=== PATIENT | female | born 1935 | race Caucasian/White ===

== ENCOUNTER → 2016-06-03 | Outpatient (CLI) | payer MEDICARE ==
[~2016-06-03] MED LIST: ACHD5005 PO; AMILORIDE; AMT25T; ASP81TEC PO; ATR20T PO; BIMA2.5D4 OP; CLID1CAP12; DIVA125T3; DIVA250T4 PO; DVL250TEC; DVL500TSR; ESCT10T PO; ESTR10TA VG; HYDR-34 PO; HYDROCHLOROTHIAZIDE; KCL20TCR; LEVO75TA57 PO; LRZ.5TRX; LVT.05T PO; MULT-608 PO; NEBI5TAB8 PO; NF-ESOM40C; OMEP20CA12 PO; OXYB5TAB9 PO; PRV20T; QTP25T; RLX60T; TML5OP2.5 OU; TRIF5TAB PO
--- OUTSIDE RECORDS SUMMARY | 2016-06-03 12:55 | XMS REPORT ---
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
--- NOTE | 2016-06-09 07:52 | ECHOCARDIOGRAPHY REPORT ---
PROCEDURE PHYSICIAN: SUSSY CARDENAS DATE OF PROCEDURE: 06/03/2016 TWO DIMENSIONAL ECHOCARDIOGRAM REPORT PRIMARY PHYSICIAN: Dr. Littlejohn OTHER PHYSICIAN: REFERRING PHYSICIAN: ORDERING PHYSICIAN: Teresa Blas APRN INDICATION FOR THE PROCEDURE: 1. Shortness of breath. 2. Pulmonary hypertension. 3. Coronary artery disease. MEASUREMENTS DERIVED VALUES LV DIAMETER (LAX) NORMALS NORMALS Diastolic 4.9 (3.6-5.2) Eject. Fract. (60%+/-6%) Systolic (2.3-3.9) Diastolic Vol. % Shortening (0.22-0.42) Systolic Vol. Aortic Root 2.8 IVS THICKNESS Diastolic 0.9 (0.6-1.1) LVPW THICKNESS Diastolic 0.9 (0.6-1.1) LA DIAMETER Systolic 3.2 (2.1-3.7) DESCRIPTION: Two-dimensional echocardiography shows normal global left ventricular systolic function with normal regional wall motion. Aortic, mitral and tricuspid valve leaflets show good leaflet excursion. There is no significant pericardial effusion. Doppler imaging shows mild tricuspid regurgitation. Pulmonary artery systolic pressure is estimated to be 30 to 35 mmHg. There is no Doppler evidence of significant valvular stenosis. Mitral inflow is consistent with grade 1 diastolic dysfunction of the left ventricle. There is no evidence of significant intracardiac shunt on the transthoracic echocardiographic study. Inferior vena cava is of normal size and exhibits inspiratory collapse. CONCLUSION: 1. Normal global left ventricular systolic function with an ejection fraction of approximately 60%. 2. Mild tricuspid regurgitation. 3. Pulmonary artery systolic pressure is estimated to be approximately 30 to 35 mmHg. 4. No evidence of significant valvular stenosis. 5. Mild diastolic dysfunction of the left ventricle. Job ID: [id number] Dictated Date: 06/08/2016 15:28:12 Machine Room Engineer Date: 06/09/2016 07:46:23 / yoanna
== END ==
LOC: CARD 12:52
PROVIDERS: ATTEND Nurse Practitioner Family
DX: I27.2 Other secondary pulmonary hypertension (principal); E78.5 Hyperlipidemia, unspecified; I25.10 Atherosclerotic heart disease of native coronary artery without angina pectoris; R06.09 Other forms of dyspnea
CPT/HCPCS: 93306

== ENCOUNTER 2016-10-05 06:52 | Emergency (ER) | payer MEDICARE ==
[~2016-10-05] VITALS: Ht 154.9 cm; Wt 90.7 kg
[2016-10-05 06:54] VITALS: BP 134/57
[2016-10-05 07:44] LABS: BASOPHILS # (AUTO) 0.1 10^3/uL (0.0-0.1); BASOPHILS % (AUTO) 1 % (0-10); EOSINOPHILS # (AUTO) 0.4 10^3/uL (0.0-0.3); EOSINOPHILS % (AUTO) 3 % (0-10); LYMPHOCYTES # (AUTO) 2.2 X 10^3 (1.0-4.0); LYMPHOCYTES % (AUTO) 17 % (12-44); MEAN CORPUSCULAR HEMOGLOBIN 27 PG (25-34); MEAN CORPUSCULAR HGB CONC 32 G/DL (32-36); MEAN CORPUSCULAR VOLUME 85 FL (80-99); MEAN PLATELET VOLUME 9.8 FL (7.4-10.4); MONOCYTES # (AUTO) 1.1 X 10^3 (0.0-1.0); MONOCYTES % (AUTO) 9 % (0-12); NEUTROPHILS # (AUTO) 9.2 X 10^3 (1.8-7.8); NEUTROPHILS % (AUTO) 71 % (42-75); PLATELET COUNT 346 10^3/uL (130-400); RED BLOOD COUNT 4.79 10^6/uL (4.35-5.85); RED CELL DISTRIBUTION WIDTH 15.6 % (10.0-14.5)
[2016-10-05 08:01] LABS: ALANINE AMINOTRANSFERASE 17 U/L (0-55); ALBUMIN 3.3 G/DL (3.2-4.5); ANION GAP 10 MMOL/L (5-14); ASPARTATE AMINO TRANSFERASE 18 U/L (5-34); BILIRUBIN,TOTAL 0.6 MG/DL (0.1-1.0); BLOOD UREA NITROGEN 12 MG/DL (7-18); BUN/CREATININE RATIO 17; CARBON DIOXIDE 25 MMOL/L (21-32); CHLORIDE 105 MMOL/L (98-107); CREATININE SERUM 0.72 MG/DL (0.60-1.30); GFR ESTIMATED > 60; GLUCOSE 102 MG/DL (70-105); MAGNESIUM 2.1 MG/DL (1.8-2.4); POTASSIUM 3.9 MMOL/L (3.6-5.0); SODIUM 140 MMOL/L (135-145); TOTAL PROTEIN 6.4 G/DL (6.4-8.2); hs C REACTIVE PROTEIN 1.12 MG/DL (0.00-0.50)
[2016-10-05 08:03] LABS: BILIRUBIN,URINE NEGATIVE (NEGATIVE); KETONES,URINE NEGATIVE (NEGATIVE); LEUKOCYTE ESTERASE ,URINE NEGATIVE (NEGATIVE); NITRITE,URINE NEGATIVE (NEGATIVE); PH,URINE 8 (5-9); PROTEIN,URINE NEGATIVE (NEGATIVE); UROBILINOGEN,URINE NORMAL (NORMAL)
--- NOTE | 2016-10-05 08:03 | ED Respiratory ---
General Chief Complaint: Respiratory Problems Stated Complaint: ILLNESS Nursing Triage Note: pt arrived per ems. pt states she woke up to use the bedside commode approx. 0400 this morning and was feeling very short of breath. Source: patient Exam Limitations: no limitations History of Present Illness Time seen by provider: 07:05 Initial Comments Here with report of shortness of breath this morning. Patient apparently got up to use the bathroom and when she got back to bed she was very short of breath. She has recent right lower extremity injury which is apparently a calcaneus fracture. She has had surgery on this. She was very short of breath until the application of oxygen and then she calmed and was not short of breath per EMS. EMS reports that her initial O2 sat was 96 percent on room air and then improved to 100 percent on 3 L. Patient was feeling much better at that time. Currently remains without shortness of breath. Patient apparently has anxiety history as well and she is not sure if that played a part of it. Denies chest pain. Timing/Duration: this morning Severity: moderate Prior Episodes/Possible Cause: occasional episodes Modifying Factors: Worse With Coughing, Improves With Oxygen, Improves With Rest Associated Symptoms: No chest pain/soreness, No dizziness, headache, lightheadedness, No muscle aches, No nasal congestion, No nasal drainage, shortness of breath, No wheezing Allergies and Home Medications Allergies Coded Allergies: Sulfa (Sulfonamide Antibiotics) (Verified Allergy, Unknown, 10/11/06) bacitracin (Unverified Allergy, Unknown, 06/25/14) diphenhydramine (Unverified Allergy, Unknown, 06/25/14) gramicidin D (Unverified Allergy, Unknown, 06/25/14) neomycin (Unverified Allergy, Unknown, 06/25/14) polymyxin B (Unverified Allergy, Unknown, 06/25/14) quinine (Unverified Allergy, Unknown, 06/25/14) Uncoded Allergies: IV CONTRAST (Allergy, Unknown, 06/25/14) Home Medications Aspirin 81 Mg Tabec, 81 MG PO DAILY, (Reported) Atorvastatin 20 Mg Tablet, 20 MG PO HS, (Reported) Bimatoprost 2.5 Ml Drops, 2.5 ML OP, (Reported) Divalproex Sodium 125 Mg Tablet., #90 (Reported) 125 mg in the morning and 250 mg at night Escitalopram Oxalate 10 Mg Tablet, 10 MG PO DAILY, (Reported) takes at 1700 Levothyroxine Sodium 75 Mcg Tablet, 75 MCG PO DAILY, #30 (Reported) Lorazepam 0.5 Mg Tab, (Reported) 0.5MG PRN Multivitamins 1 Tab Tablet, 1 TAB PO DAILY, (Reported) Omeprazole 20 Mg Capsule.dr, 20 MG PO DAILY, (Reported) Constitutional: see HPI, No chills, No fever EENTM: No nose congestion, No nose pain Respiratory: see HPI, short of breath, No wheezing Cardiovascular: No chest pain, No edema Gastrointestinal: No abdominal pain, No nausea, No vomiting Genitourinary: No pain, other (recent urinary tract infection and complains of difficulty with urination) Musculoskeletal: no symptoms reported Skin: no symptoms reported Psychiatric/Neurological: Anxiety Hematologic/Lymphatic: No Symptoms Reported All Other Systems Reviewed Negative Unless Noted: Yes Past Tcnzqna-Qgykti-Vkpmzx Hx Patient Social History Alcohol Use: Denies Use Recreational Drug Use: No Smoking Status: Never a Smoker 2nd Hand Smoke Exposure: No Recent Foreign Travel: No Contact w/Someone Who Travel: No Recent Infectious Disease Expo: No Recent Hopitalizations: Yes (SURGERIES R/T) Seasonal Allergies Seasonal Allergies: No Surgeries HX Surgeries: Yes (LEFT TKR,APPY,2 C-SECTIONS) Respiratory Hx Respiratory Disorders: No Cardiovascular Hx Cardiac Disorders: Yes Neurological Hx Neurological Disorders: Yes Reproductive System Hx Reproductive Disorders: No Sexually Transmitted Disease: No 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 Genitourinary Hx Genitourinary Disorders: Yes (UTI) Gastrointestinal Hx Gastrointestinal Disorders: Yes (IBS) Musculoskeletal Hx Musculoskeletal Disorders: Yes Endocrine Hx Endocrine Disorders: Yes HEENT HX ENT Disorders: Yes (UPPER PLATE) Psychosocial Hx Psychiatric Problems: Yes (HX DEPRESSION, BI POLAR) Blood Transfusions Hx Blood Disorders: Yes Reviewed Nursing Assessment Reviewed/Agree w Nursing PMH: Yes Family Medical History Significant Family History: No Pertinent Family Hx Physical Exam Vital Signs Vital Sign - Last 12Hours 10/05/16 06:54 Temp 98.2 Pulse 91 Resp 20 B/P (MAP) 134/57 Pulse Ox 98 O2 Delivery Nasal Cannula O2 Flow Rate 3.00 Capillary Refill : Less Than 3 Seconds General Appearance: WD/WN, no apparent distress HEENT: PERRL/EOMI, pharynx normal Neck: full range of motion, supple Respiratory: lungs clear, normal breath sounds Cardiovascular: regular rate, rhythm, no murmur Gastrointestinal: non tender, soft Extremities: non-tender, other (bulky dressing and splint to the left lower extremity remains in place.) Neurologic/Psychiatric: alert, oriented x 3 Skin: normal color, warm/dry Progress/Results/Core Measures Results/Orders Lab Results Laboratory Tests Test 10/05/16 07:35 Range/Units White Blood Count 13.0 H 4.3-11.0 10^3/uL Red Blood Count 4.79 4.35-5.85 10^6/uL Hemoglobin 13.1 11.5-16.0 G/DL Hematocrit 41 35-52 % Mean Corpuscular Volume 85 80-99 FL Mean Corpuscular Hemoglobin 27 25-34 PG Mean Corpuscular Hemoglobin Concent 32 32-36 G/DL Red Cell Distribution Width 15.6 H 10.0-14.5 % Platelet Count 346 130-400 10^3/uL Mean Platelet Volume 9.8 7.4-10.4 FL Neutrophils (%) (Auto) 71 42-75 % Lymphocytes (%) (Auto) 17 12-44 % Monocytes (%) (Auto) 9 0-12 % Eosinophils (%) (Auto) 3 0-10 % Basophils (%) (Auto) 1 0-10 % Neutrophils # (Auto) 9.2 H 1.8-7.8 X 10^3 Lymphocytes # (Auto) 2.2 1.0-4.0 X 10^3 Monocytes # (Auto) 1.1 H 0.0-1.0 X 10^3 Eosinophils # (Auto) 0.4 H 0.0-0.3 10^3/uL Basophils # (Auto) 0.1 0.0-0.1 10^3/uL Urine Color YELLOW Urine Clarity CLEAR Urine pH 8 5-9 Urine Specific [place] 1.015 L 1.016-1.022 Urine Protein NEGATIVE NEGATIVE Urine Glucose (UA) NEGATIVE NEGATIVE Urine Ketones NEGATIVE NEGATIVE Urine Nitrite NEGATIVE NEGATIVE Urine Bilirubin NEGATIVE NEGATIVE Urine Urobilinogen NORMAL NORMAL MG/DL Urine Leukocyte Esterase NEGATIVE NEGATIVE Urine RBC (Auto) NEGATIVE NEGATIVE Urine RBC NONE /HPF Urine WBC NONE /HPF Urine Squamous Epithelial Cells RARE /HPF Urine Crystals NONE /LPF Urine Bacteria NEGATIVE /HPF Urine Casts NONE /LPF Urine Mucus NEGATIVE /LPF Urine Culture Indicated NO Sodium Level 140 135-145 MMOL/L Potassium Level 3.9 3.6-5.0 MMOL/L Chloride Level 105 98-107 MMOL/L Carbon Dioxide Level 25 21-32 MMOL/L Anion Gap 10 5-14 MMOL/L Blood Urea Nitrogen 12 7-18 MG/DL Creatinine 0.72 0.60-1.30 MG/DL Estimat Glomerular Filtration Rate > 60 BUN/Creatinine Ratio 17 Glucose Level 102 70-105 MG/DL Calcium Level 9.0 8.5-10.1 MG/DL Magnesium Level 2.1 1.8-2.4 MG/DL Total Bilirubin 0.6 0.1-1.0 MG/DL Aspartate Amino Transf (AST/SGOT) 18 5-34 U/L Alanine Aminotransferase (ALT/SGPT) 17 0-55 U/L Alkaline Phosphatase 84 40-136 U/L Troponin I < 0.30 <0.30 NG/ML C-Reactive Protein High Sensitivity 1.12 H 0.00-0.50 MG/DL Total Protein 6.4 6.4-8.2 G/DL Albumin 3.3 3.2-4.5 G/DL My Orders Orders - SAL DE OLIVEIRA MD Cbc With Automated Diff (10/05/16 07:02) Comprehensive Metabolic Panel (10/05/16 07:02) Hs C Reactive Protein (10/05/16 07:02) Magnesium (10/05/16 07:02) Troponin I (10/05/16 07:02) Saline Lock/Iv-Start (10/05/16 07:02) Ekg Tracing (10/05/16 07:02) O2 (10/05/16 07:02) Monitor-Rhythm Ecg Trace Only (10/05/16 07:02) Chest 1 View, Ap/Pa Only (10/05/16 07:02) Ua Culture If Indicated (10/05/16 07:53) Vital Signs/I&O Vital Sign - Last 12Hours 10/05/16 10/05/16 06:54 07:05 Temp 98.2 Pulse 91 Resp 20 B/P (MAP) 134/57 Pulse Ox 98 O2 Delivery Nasal Cannula Room Air O2 Flow Rate 3.00 Blood Pressure Mean: 82 Progress Note : Progress Note Seen and evaluated. IV, labs, EKG, chest x-ray and UA ordered. Patient was a very difficult IV stick. Nursing tried multiple times. Ultimately I was able to get an IV in the region of the left EJ via ultrasound guidance. Monitor patient. Patient is satting 100 percent on room air without difficulty. 1040: Patient remains without symptoms. Labs, x-ray and EKG reviewed. No acute findings. Discharged home with return precautions. Patient verbalize understanding instructions and agreement with plan. ECG Initial ECG Impression Date: October 05, 2016 Initial ECG Impression Time: 07:55 Initial ECG Rate: 88 Initial ECG Rhythm: Normal Sinus Comment Sinus rhythm with left axis deviation. No evidence of ST elevation [place]. Similar to previous of 07/03/13. [place] deviation progression from previous. Interpreted by me. Diagnostic Imaging Diagonstic Imaging: Xray Plain Films/CT/US/NM/MRI: chest Comments NAME: LINDA RIVERA [facility] REC#: [id number] PT STATUS: REG ER : 1935 PHYSICIAN: SAL DE OLIVEIRA MD ADMIT DATE: 10/05/16/ER Signed Date of Exam: 10/05/16 CHEST 1 VIEW, AP/PA ONLY Portable upright radiograph of the chest. INDICATION: Shortness of breath. FINDINGS: The lungs are clear. The heart size is normal. There is suggestion of a hiatal hernia. No effusion or pneumothorax. Mediastinum and samanta appear unremarkable. IMPRESSION: Suggestion of a hiatal hernia. Dictated by: Dictated on workstation # [id number] Dict: 10/05/16 0816 Trans: 10/05/16 0852 Interpreted by: ALEJANDRO MCINTOSH MD Electronically signed by: ALEJANDRO MCINTOSH MD 10/05/16 0852 Departure Impression Impression: Primary Impression: Dyspnea Qualified Codes: R06.02 - Shortness of breath Additional Impression: Anxiety Disposition: 01 HOME, SELF-CARE Condition: Improved Departure-Patient Inst. Decision time for Depature: 10:42 Referrals: MENA BOWDEN MD (PCP/Family) Primary Care Physician Patient Instructions: Anxiety, Adult (DC), Shortness of Breath (Dyspnea) Add. Discharge Instructions: All discharge instructions reviewed with patient and/or family. Voiced understanding. Continue home medications as directed. Discuss with your doctor regarding potential for rehabilitation at inpatient facility regarding your foot fracture. Continue home medications as prescribed. Return for worse pain, fever, vomiting, weakness, breathing problems or other concerns as needed. SAL DE OLIVEIRA MD October 05, 2016 08:03
[2016-10-05 08:07] LABS: TROPONIN I < 0.30 NG/ML (<0.30)
[2016-10-05 08:12] LABS: SQUAMOUS EPITHELIAL CELL,UR RARE /HPF
--- NOTE | 2016-10-05 08:18 | Diagnostic Imaging Report ---
Portable upright radiograph of the chest. INDICATION: Shortness of breath. FINDINGS: The lungs are clear. The heart size is normal. There is suggestion of a hiatal hernia. No effusion or pneumothorax. Mediastinum and samanta appear unremarkable. IMPRESSION: Suggestion of a hiatal hernia. Dictated by: Dictated on workstation # [id number]
== END 2016-10-05 10:48 | disposition home or self-care (01) ==
LOC: EDUNIT# 06:52 → ER 06:53
DX: R06.00 Dyspnea, unspecified (principal); F41.9 Anxiety disorder, unspecified; Z79.82 Long term (current) use of aspirin; Z79.899 Other long term (current) drug therapy; Z98.890 Other specified postprocedural states
CPT/HCPCS: 36415; 71010; 80053; 81000; 83735; 84484; 85025; 86141; 93005; 93041

== ENCOUNTER 2016-12-16 13:00 | Outpatient (RCR) | payer MEDICARE | END 2016-12-29 11:30 | disposition home or self-care (01) | PROVIDERS: ATTEND Orthopaedic Surgery Sports Medicine | DX: S92.002D Unspecified fracture of left calcaneus, subsequent encounter for fracture with routine healing (principal) ==

== ENCOUNTER → 2017-01-04 | Outpatient (CLI) | payer MEDICARE ==
[~2017-01-04] VITALS: Ht 152.4 cm; Wt 88.9 kg
[~2017-01-04] MED LIST changes: +CATHETER FLUSH 10 ML SYR IV PRN; +REGADENOSON 0.4 MG/5 ML SYR (LEXISCAN) IV ONE
[2017-01-04 12:59] VITALS: BP 142/83
[2017-01-04 13:06] VITALS: BP 152/85
[2017-01-04 13:07] VITALS: BP 150/91
--- NOTE | 2017-01-06 05:00 | STRESS TEST ---
DATE OF SERVICE: 01/04/2017 RESTING AND POST REGADENOSON TECHNETIUM 99M TETROFOSMIN SPECT CT IMAGING CLINICAL DIAGNOSIS: R06.09. ORDERING PHYSICIAN: ANA Lopez. OTHER PHYSICIAN: Dr. Adorno. Baseline images were carried out after injection of 10.89 mCi of Technetium-99m Tetrofosmin. This was followed by 0.4 mg regadenoson and 29.6 mCi Technetium-99m Tetrofosmin for stress imaging. The electrocardiogram showed sinus rhythm at baseline and did not change significantly with the regadenoson infusion. She had noted mild shortness of breath following regadenoson infusion, which resolved in a few minutes. Review of images at rest and following stress does not indicate any significant perfusion defects consistent with significant myocardial ischemia or infarction. Gated images show normal global left ventricular systolic function with normal regional wall motion. Left ventricular ejection fraction is calculated to be 69%. Left ventricular end diastolic volume is 45 mL. TID is absent (0.99). CONCLUSIONS: 1. No evidence of any significant myocardial ischemia or infarction on this study. 2. Normal regional wall motion. 3. Normal global left ventricular systolic function with a calculated ejection fraction of 69%. 4. Normal left ventricular cavity size. Job ID: [id number] DocumentID: [id number] Dictated Date: 01/05/2017 13:27:26 Supervisor Fur Floor Worker Date: 01/05/2017 17:30:09 Dictated By: SUSSY ADORNO MD, MA, FACP, FACC,
== END ==
LOC: CARD 11:05
PROVIDERS: ATTEND Nurse Practitioner Family
DX: I25.10 Atherosclerotic heart disease of native coronary artery without angina pectoris (principal); R06.09 Other forms of dyspnea; R42 Dizziness and giddiness; R00.1 Bradycardia, unspecified; G47.33 Obstructive sleep apnea (adult) (pediatric)
CPT/HCPCS: 78452; 93017

== ENCOUNTER → 2017-02-14 | Outpatient (CLI) | payer MEDICARE ==
[~2017-02-14] MED LIST changes: -CATHETER FLUSH 10 ML SYR IV PRN; -REGADENOSON 0.4 MG/5 ML SYR (LEXISCAN) IV ONE
== END ==
LOC: RAD 13:33
PROVIDERS: ATTEND Nurse Practitioner Family
DX: R51 Headache (principal); R42 Dizziness and giddiness

== ENCOUNTER → 2017-03-07 | Outpatient (CLI) | payer MEDICARE ==
--- NOTE | 2017-03-07 13:19 | Diagnostic Imaging Report ---
PROCEDURE: CT head without contrast. TECHNIQUE: Multiple contiguous axial images were obtained through the brain without the use of intravenous contrast. INDICATION: Headache. FINDINGS: There is no intracranial hemorrhage, edema or mass effect. The brain parenchyma demonstrates periventricular and deep white matter hypodensities compatible with chronic microvascular ischemic changes. No hydrocephalus. No extra-axial fluid collection is seen. The calvarium and visualized portions of the paranasal sinuses appear unremarkable. The visualized portions of the orbits appear unremarkable. IMPRESSION: White matter findings are suggestive of chronic microvascular ischemic changes. Dictated by: Dictated on workstation # [id number]
== END ==
LOC: RAD 12:53
PROVIDERS: ATTEND Nurse Practitioner Family
DX: R51 Headache (principal)
CPT/HCPCS: 70450

== ENCOUNTER → 2017-10-11 | Outpatient (CLI) | payer MEDICARE ==
[~2017-10-11] MED LIST changes: +ASPI-983 PO; +ATOR40TA70 PO; +BIMA2.5D4 OU; +BRIM5DRO12 OS; +CHOL5000 PO; +DIVA250T2 PO; +ERGO50006 PO; +FURO40TA4 PO; +HYDR-700 PO; +LEVO100T7 PO; +LORA0.5T PO; +MELA3TAB PO; +OLAN10TA3 PO; +OLAN5TAB25 PO; +POTA10TA10 PO; +VENL75TA2 PO
--- NOTE | 2017-10-11 19:11 | Diagnostic Imaging Report ---
INDICATION: Routine screening. Comparison is made with prior studies from 04/18/2015 and 02/19/2014. 2D and 3D bilateral screening mammography was performed. The current study was also evaluated with a Computer Aided Detection (CAD) system. FINDINGS: Scattered fibronodular densities are identified bilaterally. There is significant motion artifact identified on the right CC view, which should be repeated. There is a benign-appearing nodular density in the slightly outer right breast mid depth, similar to prior exam. Scattered benign-appearing calcifications are identified. No spiculated mass or malignant-appearing microcalcifications are seen. IMPRESSION: Motion artifact right CC view. Repeat right CC view is recommended for further evaluation. Otherwise bilateral mammograms are unremarkable. ACR BI-RADS Category 0: Incomplete. (Needs additional imaging evaluation). Result letter will be mailed to the patient. Note: At least 10% of breast cancer is not imaged by mammography. Dictated by: Dictated on workstation # [id number]
== END ==
LOC: RAD 09:57
PROVIDERS: ATTEND Nurse Practitioner Family
DX: Z12.31 Encounter for screening mammogram for malignant neoplasm of breast (principal)
CPT/HCPCS: 77067

== ENCOUNTER → 2017-10-12 | Outpatient (CLI) | payer MEDICARE ==
--- NOTE | 2017-10-12 18:35 | Diagnostic Imaging Report ---
INDICATION: Routine screening. COMPARISON: Prior study from 04/18/2015 and 02/19/2014. EXAMINATION: 2D and 3D bilateral screening mammography was performed with CAD. FINDINGS: Scattered fibroglandular densities are identified, bilaterally. A repeat CC view was performed for motion. The repeat view is improved. There are benign calcifications present. There also appears to be a new cluster in the upper and outer aspect of the right breast, now more clear with the repeat view. Additional views of this area are recommended. No associated soft tissue mass is seen. Axillae are unremarkable. IMPRESSION: Emerging cluster microcalcifications in the upper-outer right breast. Additional views are recommended. ACR BI-RADS Category 0: Incomplete. (Needs additional imaging evaluation). Result letter will be mailed to the patient. Note: At least 10% of breast cancer is not imaged by mammography. Dictated by: Dictated on workstation # [id number]
== END ==
LOC: RAD 13:34
PROVIDERS: ATTEND Nurse Practitioner Family
DX: Z12.31 Encounter for screening mammogram for malignant neoplasm of breast (principal); R92.0 Mammographic microcalcification found on diagnostic imaging of breast

== ENCOUNTER 2017-10-18 06:48 | Day surgery (SDC) | payer MEDICARE ==
[~2017-10-18] VITALS: Ht 152.4 cm; Wt 100.2 kg
[2017-10-18] VITALS (9 sets, daily range): BP systolic 92–155; BP diastolic 45–77
[~2017-10-18 06:48] MED LIST changes: -ASPI-983 PO; -ATOR40TA70 PO; -BIMA2.5D4 OU; -BRIM5DRO12 OS; -CHOL5000 PO; -DIVA250T2 PO; -ERGO50006 PO; -FURO40TA4 PO; -HYDR-700 PO; -LEVO100T7 PO; -LORA0.5T PO; -MELA3TAB PO; -OLAN10TA3 PO; -OLAN5TAB25 PO; -POTA10TA10 PO; -VENL75TA2 PO
--- OUTSIDE RECORDS SUMMARY | 2017-10-18 06:53 | XMS REPORT ---
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 Active 64599772 Problem Delusional disorder F22 Active 98512768 Problem Adjustment disorder with anxious mood F43.22 Active 27640570 ALLERGIES No Information ENCOUNTERS Encounter Location Date Diagnosis [place] [id number] [place] [address]641- 1119 Oct, [place] [address] [place] [address] [id number] [place] [address] 41452- 3899 Aug, [place] [id number] [place] [address] 99863- 7580 Aug, Major depressive disorder, recurrent episode, 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 ; Delusional disorder F22 and RAD (generalized anxiety disorder) F41.1 [facility] [id number] [place] [address] 70232- 0969 Jul, Major depressive disorder, recurrent episode, 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 [place] [id number] [place] [address] 83027- 0160 Jul, Major depressive disorder, recurrent episode, unspecified F33.9 [place] [id number] [place] [address] 36181- 8833 Jun, Major depressive disorder, recurrent episode, 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 [facility] [id number] [address] May, Major depressive disorder, recurrent episode, 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 ; Delusional disorder F22 and RAD (generalized anxiety disorder) F41.1 [facility] [address] [address] May, [facility] [id number] [address] May, Major depressive disorder, recurrent episode, 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 [facility] [id number] [address] 395[address] May, Major depressive disorder, recurrent episode, 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 ; Adjustment disorder with anxious mood F43.22 and Delusional disorder F22 [facility] [id number] [address] Mar, [facility] [id number] [address] Mar, Major depressive disorder, recurrent episode, 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 [facility] [id number] [address] Mar, Major depressive disorder, recurrent episode, 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 ; Adjustment disorder with anxious mood F43.22 and Delusional disorder F22 [facility] [id number] [address] 89[address] Mar, Major depressive disorder, recurrent episode, 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 [facility] [id number] [address] 8[address] Feb, Major depressive disorder, recurrent episode, 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 [facility] [address] [facility] [id number] [place] [address] Feb, Major depressive disorder, recurrent episode, 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 ; Adjustment disorder with anxious mood F43.22 and Delusional disorder F22 [facility] [id number] [address] 69[address] Jan, Major depressive disorder, recurrent episode, 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 [facility] [id number] [address] 0168 Jan, Major depressive disorder, recurrent episode, 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 [facility] [id number] [address] 4[address] Jan, Major depressive disorder, recurrent episode, 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 [facility] [id number] [address] 43[address] Dec, Major depressive disorder, recurrent episode, 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 [facility] [id number] [address]79 Dec, Major depressive disorder, recurrent episode, 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 ; Adjustment disorder with anxious mood F43.22 and Delusional disorder F22 [facility] [address] [facility] [id number] [address] Dec, Major depressive disorder, recurrent episode, 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 [facility] [address] [facility] [id number] [place] [address] Dec, [facility] Jose Miguel ARRIETA [id number] [place] [address] Dec [facility] [address] [facility] [id number] [place] [address] 6485 Dec, Major depressive disorder, recurrent episode, 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 [facility] [id number] [address] 4[address] Nov, Major depressive disorder, recurrent episode, 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 [facility] [address] [address] 7[address] Nov, Major depressive disorder, recurrent episode, 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 [facility] [address] [address] 24[address] Nov, Major depressive disorder, recurrent episode, 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 and Adjustment disorder with anxious mood F43.22 [facility] [address] [address] September, Major depressive disorder, recurrent episode, 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 [facility] [address] [address] 3[address] Aug, Major depressive disorder, recurrent episode, 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 [facility] [address] [address] 33[address] Jul, Major depressive disorder, recurrent episode, 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 [facility] [address] [address] 5[address] Jul, [facility] [address] [address] 8660 Jun, Major depressive disorder, recurrent episode, 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 and Other manager 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 Z79.899 [facility] [address] [address] Jun, [facility] [address] [address] May, Major depressive disorder, recurrent episode, 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 [facility] [address] [id number] [place] [address] Mar, [facility] [address] [facility] [id number] [address] 67[address] Mar, [facility] [address] [facility] [id number] [address] Mar, [facility] [address] [facility] [id number] [place] [address] 2758 Mar, Major depressive disorder, recurrent episode, 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 [facility] [address] [id number] [place] [address]- 2566 Feb, [facility] [address] [facility] [id number] [address] 5[address] Feb, [facility] [address] [facility] [id number] [place] [address] 2[address] Feb, [facility] [address] [facility] [id number] [place] [address] 0498 Jan, [facility] [address] [facility] [id number] [place] [address]- 6[address] Jan, Major depressive disorder, recurrent episode, 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 [facility] [address] [facility] [id number] [place] [address]- 2426 Jan, [facility] [address] [id number] [place] [address]- 0623 Oct, Major depressive disorder, recurrent episode, 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 [facility] [address] [facility] [id number] [place] [address] September, [facility] [address] [facility] [id number] [place] [address]- 4056 September, [facility] [address] [facility] [id number] [place] [address]- 2727 Aug, Major depressive disorder, recurrent episode, 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 [facility] [address] [facility] [id number] [place] [address]- 6400 Jul, Recur major depre, part remis F33.41 IMMUNIZATIONS No Known Immunizations SOCIAL HISTORY Never Assessed REASON FOR VISIT concerned about patient PLAN OF CARE VITAL SIGNS MEDICATIONS Unknown Medications RESULTS No Results PROCEDURES No Known procedures INSTRUCTIONS MEDICATIONS ADMINISTERED No Known Medications MEDICAL (GENERAL) HISTORY Type Description Date Surgical History appendectomy 1950 Surgical History 1960 Surgical History 1966 Surgical History Left knee replacement 1998 Surgical History blood transfusion 1998 Surgical History removal right side of thyroid gland 2007 Surgical History Right knee replacement 2009 Hospitalization History surgeries Hospitalization History psychiatric hospitalizations x4-5 Hospitalization History hospitalized for two nights due to a fall 09/2016 Hospitalization History [facility] 03/21/17-
--- OUTSIDE RECORDS SUMMARY | 2017-10-18 06:53 | XMS REPORT ---
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 19507502 Problem Delusional disorder F22 Active 33148098 Problem Adjustment disorder with anxious mood F43.22 Active 25077744 ALLERGIES No Information ENCOUNTERS Encounter Location Date Diagnosis [place] [id number] [place] [address] 12064- 1605 Oct, [place] [address] [place] [id number] [place] [address] 61072- 7922 Aug, [place] [address] [place] [id number] [place] [address] 03322- 6555 Aug, Major depressive disorder, recurrent episode, 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 ; Delusional disorder F22 and RAD (generalized anxiety disorder) F41.1 [facility] [id number] [place] [address] 92761- 9497 Jul, Major depressive disorder, recurrent episode, 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 [place] [id number] [place] [address] 05617- 3239 Jul, Major depressive disorder, recurrent episode, unspecified F33.9 [place] [id number] [place] [address] 52331- 9620 Jun, Major depressive disorder, recurrent episode, 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 [facility] [id number] [address]- 7590 May, Major depressive disorder, recurrent episode, 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 ; Delusional disorder F22 and RAD (generalized anxiety disorder) F41.1 [facility] [address] [address]- 7[address] May, [facility] [address] [id number] [address]- 8055 May, Major depressive disorder, recurrent episode, 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 [facility] [address] [id number] [address]- 2814 May, Major depressive disorder, recurrent episode, 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 ; Adjustment disorder with anxious mood F43.22 and Delusional disorder F22 [facility] [id number] [address]- 0453 Mar, [facility] [address] [id number] [address]- 7933 Mar, Major depressive disorder, recurrent episode, 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 [facility] [address] [id number] [address]- 8444 Mar, Major depressive disorder, recurrent episode, 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 ; Adjustment disorder with anxious mood F43.22 and Delusional disorder F22 [facility] [id number] [address]- 0647 Mar, Major depressive disorder, recurrent episode, 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 [facility] [id number] [address]- 2816 Feb, Major depressive disorder, recurrent episode, 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 [facility] [address] [facility] [id number] [place] [address]- 4[address] Feb, Major depressive disorder, recurrent episode, 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 ; Adjustment disorder with anxious mood F43.22 and Delusional disorder F22 [facility] [id number] [address]- 9701 Jan, Major depressive disorder, recurrent episode, 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 [facility] [id number] [address]- 1182 Jan, Major depressive disorder, recurrent episode, 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 [facility] [id number] [address]- 1905 Jan, Major depressive disorder, recurrent episode, 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 [facility] [id number] [address]- 0988 Dec, Major depressive disorder, recurrent episode, 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 [facility] [id number] [address]- 6636 Dec, Major depressive disorder, recurrent episode, 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 ; Adjustment disorder with anxious mood F43.22 and Delusional disorder F22 [facility] [address] [facility] [id number] [address]- 6922 Dec, Major depressive disorder, recurrent episode, 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 [facility] [address] [facility] [id number] [place] [address]- 1267 Dec, [facility] Jose Miguel ARRIETA [id number] [place] [address] Dec [facility] [address] [facility] [id number] [place] [address]- 2744 Dec, Major depressive disorder, recurrent episode, 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 [facility] [id number] [address]- 4653 Nov, Major depressive disorder, recurrent episode, 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 [facility] [address] [address]- 4083 Nov, Major depressive disorder, recurrent episode, 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 [facility] [address] [address]- 4505 Nov, Major depressive disorder, recurrent episode, 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 and Adjustment disorder with anxious mood F43.22 [facility] [address] [address]- 1682 September, Major depressive disorder, recurrent episode, 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 [facility] [address] [address]- 8452 Aug, Major depressive disorder, recurrent episode, 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 [facility] [address] [address]- 0733 Jul, Major depressive disorder, recurrent episode, 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 [facility] [address] [address]- 2098 Jul, [facility] [address] [address]- 0046 Jun, Major depressive disorder, recurrent episode, 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 and 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 Z79.899 [facility] [address] [address]- 1454 Jun, [facility] [address] [address]- 9104 May, Major depressive disorder, recurrent episode, 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 [facility] [address] [id number] [place] [address]- 8306 Mar, [facility] [address] [facility] [id number] [place] [address]- 7826 Mar, [facility] [address] [facility] [id number] [place] [address]- 8446 Mar, [facility] [address] [facility] [id number] [place] [address]- 2395 Mar, Major depressive disorder, recurrent episode, 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 [facility] [address] [id number] [place] [address]- 7136 Feb, [facility] [address] [facility] [id number] [address]- 3496 Feb, [facility] [address] [facility] [id number] [place] [address]- 8644 Feb, [facility] [address] [facility] [id number] [place] [address]- 5818 Jan, [facility] [address] [facility] [id number] [place] [address]- 5239 Jan, Major depressive disorder, recurrent episode, 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 [facility] [address] [facility] [id number] [place] [address]- 8336 Jan, [facility] [address] [id number] [place] [address]- 2825 Oct, Major depressive disorder, recurrent episode, 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 [facility] [address] [facility] [id number] [place] [address] September, [facility] [address] [facility] [id number] [address]- 4866 September, [facility] [address] [facility] [id number] [place] Aug, Major depressive disorder, recurrent episode, 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
--- OUTSIDE RECORDS SUMMARY | 2017-10-18 06:53 | XMS REPORT ---
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 33008600 ALLERGIES No Information SOCIAL HISTORY Never Assessed PLAN OF CARE VITAL SIGNS MEDICATIONS Unknown Medications RESULTS No Results PROCEDURES No Known procedures IMMUNIZATIONS No Known Immunizations MEDICAL (GENERAL) HISTORY Type Description Date Surgical History appendectomy 1950 Surgical History 1960 Surgical History 1966 Surgical History Left knee replacement 1998 Surgical History blood transfusion 1998 Surgical History removal right side of thyroid gland 2007 Surgical History Right knee replacement 2010 Hospitalization History surgeries Hospitalization History psychiatric hospitalizations x4-5
--- OUTSIDE RECORDS SUMMARY | 2017-10-18 06:53 | XMS REPORT ---
Author Author Pacheco ANDERSON Organization [facility] Address [address] 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 99592263 ALLERGIES Substance Reaction Event Type Date Status SulfADIAZINE Unknown Drug Allergy Jun, Active Quinine Sulfate Unknown Drug Allergy Jun, Active Neosporin Unknown Drug Allergy Jun, Active Benadryl Unknown Drug Allergy Jun, Active SOCIAL HISTORY Never Assessed PLAN OF CARE Activity Details Follow Up 2 Months Reason: VITAL SIGNS Height 60 in 2016-07-01 Weight 204.1 lbs 2016-07-01 Heart Rate 104 bpm 2016-07-01 Respiratory Rate 22 2016-07-01 BMI 39.86 kg/m2 2016-07-01 Blood pressure systolic 110 mmHg 2016-07-01 Blood pressure diastolic 62 mmHg 2016-07-01 MEDICATIONS Medication Instructions Dosage Frequency Start Date End Date Duration Status Alphagan P 0.15 % Ophthalmic Once a day 1 drop into affected eye 24h Active Remeron 15 TAKE ONE TABLET BY MOUTH EVERY EVENING , DAILY Active Lumigan 0.01 % Ophthalmic Once a day 1 drop into affected eye in the evening 24h Active Effexor XR 75 MG Orally Once a day 1 capsule with food 24h Active Lipitor 40 MG Orally Once a day 1 tablet 24h Active Omeprazole 20 MG Orally Once a day 2 capsules 24h Active Seroquel 50 MG Orally Once a day at HS 1 tablet Jun, 30 day(s ) Active Lorazepam 0.5 MG Orally daily 1 tablet at bedtime as needed 24h Active Levothyroxine Sodium 88 MCG Orally Once a day 1 tablet 24h Active Depakote 125 TAKE Three TABLETS BY MOUTH EVERY NIGHT AT BEDTIME Active Remeron 15 MG Orally Once a day 1 tablet before bedtime in the evening 24h Active RESULTS No Results PROCEDURES Procedure Date Ordered Result Body Site [facility] VISIT ESTABLISHED PATIENT Jul 01, 2016 IMMUNIZATIONS No Known Immunizations MEDICAL (GENERAL) HISTORY Type Description Date Surgical History appendectomy 1950 Surgical History 1960 Surgical History 1966 Surgical History Left knee replacement 1998 Surgical History blood transfusion 1998 Surgical History removal right side of thyroid gland 2007 Surgical History Right knee replacement 2010 Hospitalization History surgeries Hospitalization History psychiatric hospitalizations x4-5
--- OUTSIDE RECORDS SUMMARY | 2017-10-18 06:54 | XMS REPORT ---
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 Active 62497360 ALLERGIES Substance Reaction Event Type Date Status SulfADIAZINE Unknown Drug Allergy May, Active Quinine Sulfate Unknown Drug Allergy May, Active Neosporin Unknown Drug Allergy May, Active Benadryl Unknown Drug Allergy May, Active SOCIAL HISTORY No smoking Hx information available PLAN OF CARE Activity Details Follow Up 6 Weeks Reason: VITAL SIGNS Height 60 in 2016-05-18 Weight 203.8 lbs 2016-05-18 Heart Rate 88 bpm 2016-05-18 Respiratory Rate 20 2016-05-18 BMI 39.80 kg/m2 2016-05-18 Blood pressure systolic 132 mmHg 2016-05-18 Blood pressure diastolic 81 mmHg 2016-05-18 MEDICATIONS Medication Instructions Dosage Frequency Start Date End Date Duration Status Levothyroxine Sodium 88 MCG Orally Once a day 1 tablet 24h Active Lipitor 40 MG Orally Once a day 1 tablet 24h Active Remeron 15 MG Orally Once a day 1 tablet before bedtime in the evening 24h Active Alphagan P 0.15 % Ophthalmic Once a day 1 drop into affected eye 24h Active Effexor XR 75 MG Orally Once a day 1 capsule with food 24h 30 days Active Lorazepam 0.5 MG Orally daily 1 tablet at bedtime as needed 24h Active Depakote 125 TAKE TWO TABLETS BY MOUTH EVERY NIGHT AT BEDTIME Active Remeron 15 TAKE ONE TABLET BY MOUTH EVERY EVENING , DAILY 30 Active Quetiapine Fumarate 100 MG Orally Once a day at bedtime 1/2 tablet Mar, 30 days Active Omeprazole 20 MG Orally Once a day 2 capsules 24h Active Lumigan 0.01 % Ophthalmic Once a day 1 drop into affected eye in the evening 24h Active RESULTS No Results PROCEDURES Procedure Date Ordered Related Diagnosis Body Site [facility] VISIT ESTABLISHED PATIENT May 18, 2016 Office Visit, Est Pt., Level 3 May 18, 2016 IMMUNIZATIONS No Known Immunizations
--- OUTSIDE RECORDS SUMMARY | 2017-10-18 06:54 | XMS REPORT ---
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 26601228 Problem Delusional disorder F22 Active 17719133 Problem Adjustment disorder with anxious mood F43.22 Active 06924806 ALLERGIES No Information ENCOUNTERS Encounter Location Date Diagnosis [place] [id number] [place] [address] Oct, [place] [address] [place] [id number] [place] [address] Aug, [place] [address] [place] [id number] [place] [address] Aug, Major depressive disorder, recurrent episode, 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 ; Delusional disorder F22 and RAD (generalized anxiety disorder) F41.1 [facility] [address] [place] [address] Jul, Major depressive disorder, recurrent episode, 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 [place] [address] [place] [address] Jul, Major depressive disorder, recurrent episode, unspecified F33.9 [place] [address] [place] [address] Jun, Major depressive disorder, recurrent episode, 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 ; Adjustment disorder with anxious mood F43.22 and Delusional disorder F22 [facility] [address] [id number] [address] Mar, [facility] [id number] [address] Mar, Major depressive disorder, recurrent episode, 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 [facility] [address] [id number] [address] Mar, Major depressive disorder, recurrent episode, 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 ; Adjustment disorder with anxious mood F43.22 and Delusional disorder F22 [facility] [address] [id number] [address] Mar, Major depressive disorder, recurrent episode, 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 [facility] [address] [id number] [address] Feb, Major depressive disorder, recurrent episode, 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 [facility] [address] [facility] [id number], [place] [address] Feb, Major depressive disorder, recurrent episode, 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 ; Adjustment disorder with anxious mood F43.22 and Delusional disorder F22 [facility] [id number] [address] Jan, Major depressive disorder, recurrent episode, 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 [facility] [id number] [address] Jan, Major depressive disorder, recurrent episode, 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 [facility] [id number] [address] Jan, Major depressive disorder, recurrent episode, 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 [facility] [id number] [address] Dec, Major depressive disorder, recurrent episode, 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 [facility] [address] [id number] [address] Dec, Major depressive disorder, recurrent episode, 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 ; Adjustment disorder with anxious mood F43.22 and Delusional disorder F22 [facility] [address] [facility] [id number], [place] [address] Dec, Major depressive disorder, recurrent episode, 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 [facility] [address] [facility] [id number], [place] [address] Dec, [facility] Jose Miguel ARRIETA [id number] [place] [address] Dec [facility] [address] [facility] [id number], [place] [address] Dec, Major depressive disorder, recurrent episode, 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 [facility] [id number] [address] Nov, Major depressive disorder, recurrent episode, 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 [facility] [address], [place] [address] Nov, Major depressive disorder, recurrent episode, 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 [facility] [address] [address] Nov, Major depressive disorder, recurrent episode, 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 and Adjustment disorder with anxious mood F43.22 [facility] [address], [place] [address] September, Major depressive disorder, recurrent episode, 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 [facility] [address] [address] Aug, Major depressive disorder, recurrent episode, 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 [facility] [address] [place] [address] Jul, Major depressive disorder, recurrent episode, 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 [facility] [address] [address] Jul, [facility] [address], [place] [address] Jun, Major depressive disorder, recurrent episode, 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 and 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 [facility] [address] [address] Jun, [facility] [address] [place] [address] May, Major depressive disorder, recurrent episode, 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 [facility] [address] [id number] [place] [address] Mar, [facility] [address] [facility] [id number], [place] [address] Mar, [facility] [address] [facility] [id number], [place] [address] Mar, [facility] [address] [facility] [id number], [place] [address] Mar, Major depressive disorder, recurrent episode, 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 [facility] [address] [id number] [place] [address] Feb, [facility] [address] [facility] [id number], [place] [address] Feb, [facility] [address] [facility] [id number], [place] [address] Feb, [facility] [address] [facility] [id number], [place] [address] Jan, [facility] [address] [facility] [id number], [place] [address] Jan, Major depressive disorder, recurrent episode, 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 [facility] [address] [facility] [id number], [place] [address] Jan, [facility] [address] [id number], [place] [address] Oct, Major depressive disorder, recurrent episode, 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 [facility] [address] [facility] [id number] [address] September, [facility] [address] [facility] [id number], [place] [address] September, [facility] [address] [facility] [id number] [place] [address] Aug, Major depressive disorder, recurrent episode, 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 PLAN OF CARE Activity Details Follow Up 4 Weeks Reason:depression VITAL SIGNS MEDICATIONS Unknown Medications RESULTS No Results PROCEDURES Procedure Date Ordered Result Body [facility] ESTAB PT Jan 20, 2017 Psychotherapy, patient &/family, 30 minutes, established patient Jan 20, 2017 INSTRUCTIONS MEDICATIONS ADMINISTERED No Known Medications MEDICAL [...] to a fall 09/2016 Hospitalization History [facility] 03/21/17-
--- OUTSIDE RECORDS SUMMARY | 2017-10-18 06:54 | XMS REPORT ---
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 62379105 Problem Delusional disorder F22 Active 07764004 Problem Adjustment disorder with anxious mood F43.22 Active 59256335 ALLERGIES Substance Reaction Event Type Date Status SulfADIAZINE Unknown Drug Allergy Nov, Active Quinine Sulfate Unknown Drug Allergy Nov, Active Neosporin Unknown Drug Allergy Nov, Active Benadryl Unknown Drug Allergy Nov, Active ENCOUNTERS Encounter Location Date Diagnosis [facility] [id number] [place] [address]- [address]28 Aug, [facility] [id number] [place] [address] 40329- 7631 Aug, [facility] [id number] [place] [address] 47070- 3012 Jul, Major depressive disorder, recurrent episode, 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 [facility] [id number] [place] [address] 84867- 6229 Jul, Major depressive disorder, recurrent episode, unspecified F33.9 [facility] [id number] [address] Jun, Major depressive disorder, recurrent episode, 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 [facility] [id number] [address] 6[address] May, Major depressive disorder, recurrent episode, 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 ; Delusional disorder F22 and RAD (generalized anxiety disorder) F41.1 [facility] [address] [id number] [address] May, [facility] [id number] [place] [address] 39310- 0794 May, Major depressive disorder, recurrent episode, 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 [facility] [id number] [place] [address] 76676- 3325 May, Major depressive disorder, recurrent episode, 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 ; Adjustment disorder with anxious mood F43.22 and Delusional disorder F22 [facility] [id number] [place] [address] 31626- 3631 Mar, [facility] [id number] [address] 7670 Mar, Major depressive disorder, recurrent episode, 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 [facility] [id number] [address] Mar, Major depressive disorder, recurrent episode, 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 ; Adjustment disorder with anxious mood F43.22 and Delusional disorder F22 [facility] [id number] [address] 0470 Mar, Major depressive disorder, recurrent episode, 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 [facility] [id number] [address] 7582 Feb, Major depressive disorder, recurrent episode, 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 [facility] [address] [address] 119[address] Feb, Major depressive disorder, recurrent episode, 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 ; Adjustment disorder with anxious mood F43.22 and Delusional disorder F22 [facility] [id number] [address] 0[address] Jan, Major depressive disorder, recurrent episode, 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 [facility] [address] [address]- 4760 Jan, Major depressive disorder, recurrent episode, 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 [facility] [address] [address]- 8573 Jan, Major depressive disorder, recurrent episode, 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 [facility] [address] [address]- 8111 Dec, Major depressive disorder, recurrent episode, 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 [facility] [id number] [address] 5008 Dec, Major depressive disorder, recurrent episode, 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 ; Adjustment disorder with anxious mood F43.22 and Delusional disorder F22 [facility] [id number] [address]- 6883 Dec, Major depressive disorder, recurrent episode, 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 [facility] [address] [facility] [id number] [address] 7[address] Dec, [facility] Jose Miguel ARRIETA [id number] [place] [address] Dec [facility] [id number] [address]- 3[address] Dec, Major depressive disorder, recurrent episode, 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 [facility] [address] [address]- 0959 Nov, Major depressive disorder, recurrent episode, 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 [facility] [address] [place] [address] 38109- 7488 Nov, Major depressive disorder, recurrent episode, 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 [facility] [address] [address]- 1474 Nov, Major depressive disorder, recurrent episode, 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 and Adjustment disorder with anxious mood F43.22 [facility] [id number] [place] [address] 11530- 2019 September, Major depressive disorder, recurrent episode, 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 [facility] [id number] [place] [address] 03336- 4757 Aug, Major depressive disorder, recurrent episode, 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 [facility] [address] [address]- 8797 Jul, Major depressive disorder, recurrent episode, 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 [facility] [address] [address]- 5763 Jul, [facility] [address] [address]- 0200 Jun, Major depressive disorder, recurrent episode, 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 and 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 [facility] [address] [address] 40[address] Jun, [facility] [address] [address]- 2078 May, Major depressive disorder, recurrent episode, 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 [facility] [address] [facility] [id number] [place] [address] 7[address] Mar, [facility] [address] [facility] [id number] [place] [address]- 0026 Mar, [facility] [address] [facility] [id number] [place] [address]- 5176 Mar, [facility] [address] [facility] [id number] [place] [address]- 0016 Mar, Major depressive disorder, recurrent episode, 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 [facility] [address] [facility] [id number] [place] [address]- 3296 Feb, [facility] [address] [facility] [id number] [place] [address]- 8126 Feb, [facility] [id number] [address]- 2356 Feb, [facility] [address] [facility] [id number] [address]- 2437 Jan, [facility] [id number] [address]- 8215 Jan, Major depressive disorder, recurrent episode, 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 [facility] [address] [address]- 0756 Jan, [facility] [address] [facility] [id number] [address] 254 Oct, Major depressive disorder, recurrent episode, 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 [facility] [address] [facility] [id number] [place] [address]- 9756 September, [facility] [address] [facility] [id number] [address]- 8226 September, [facility] [id number] [address]- 4946 Aug, Major depressive disorder, recurrent episode, 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 TIFFANIE Hazel PLAN OF CARE Activity Details Follow Up 4 Weeks Reason: f/u VITAL SIGNS Height 60 in 2016-11-25 Weight 193 lbs 2016-11-25 Heart Rate 92 bpm 2016-11-25 Respiratory Rate 20 2016-11-25 BMI 37.69 kg/m2 2016-11-25 Blood pressure systolic 120 mmHg 2016-11-25 Blood pressure diastolic 70 mmHg 2016-11-25 MEDICATIONS Medication Instructions Dosage Frequency Start Date End Date Duration Status Remeron 15 MG Orally Once a day 1 tablet before bedtime in the evening 24h Active Effexor XR 75 MG Orally Once a day 1 capsule with food 24h 30 days Active Alphagan P 0.15 % Ophthalmic Once a day 1 drop into affected eye 24h Active Lipitor 40 MG Orally Once a day 1 tablet 24h Active Lumigan 0.01 % Ophthalmic Once a day 1 drop into affected eye in the evening 24h Active Depakote 125 TAKE Three TABLETS BY MOUTH EVERY NIGHT AT BEDTIME 30 days Active Levothyroxine Sodium 88 MCG Orally Once a day 1 tablet 24h Active Remeron 15 mg TAKE ONE TABLET BY MOUTH EVERY EVENING , DAILY 30 days Active Seroquel 50 mg Orally Once a day at HS 1 tablet 30 days Active Lorazepam 0.5 MG Orally daily 1 tablet at bedtime as needed 24h 30 days Active Omeprazole 20 MG Orally Once a day 2 capsules 24h Active RESULTS No Results PROCEDURES Procedure Date Ordered Result Body Site [facility] VISIT ESTABLISHED PATIENT November 25, 2016 INSTRUCTIONS MEDICATIONS ADMINISTERED No Known Medications MEDICAL [...] to a fall 09/2016 Hospitalization History [facility] 03/21/17-
--- OUTSIDE RECORDS SUMMARY | 2017-10-18 06:54 | XMS REPORT ---
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 Active 70167730 Problem Delusional disorder F22 Active 12650220 Problem Adjustment disorder with anxious mood F43.22 Active 94800002 ALLERGIES No Information ENCOUNTERS Encounter Location Date Diagnosis [id number] [place] [address]73- 4545 Oct, [place] [id number] [place] [address] 33711- 0095 Aug, [place] [id number] [place] [address] 10412- 8068 Aug, Major depressive disorder, recurrent episode, 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 ; Delusional disorder F22 and RAD (generalized anxiety disorder) F41.1 [facility] [address] [place] [address] 90815- 7481 Jul, Major depressive disorder, recurrent episode, 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 [place] [id number] [place] [address] 58049- 4761 Jul, Major depressive disorder, recurrent episode, unspecified F33.9 [place] [id number] [place] [address] 93320- 3191 Jun, Major depressive disorder, recurrent episode, 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 [facility] [id number] [address]- 0504 May, Major depressive disorder, recurrent episode, 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 ; Delusional disorder F22 and RAD (generalized anxiety disorder) F41.1 [facility] [address] [address]- [address]12 May, [facility] [id number] [address]- 0370 May, Major depressive disorder, recurrent episode, 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 [facility] [id number] [address]- 5545 May, Major depressive disorder, recurrent episode, 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 ; Adjustment disorder with anxious mood F43.22 and Delusional disorder F22 [facility] [id number] [address]- 9913 Mar, [facility] [id number] [address]- 3153 Mar, Major depressive disorder, recurrent episode, 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 [facility] [id number] [address]- 6693 Mar, Major depressive disorder, recurrent episode, 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 ; Adjustment disorder with anxious mood F43.22 and Delusional disorder F22 [facility] [id number] [address]- 4312 Mar, Major depressive disorder, recurrent episode, 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 [facility] [id number] [address]- 5495 Feb, Major depressive disorder, recurrent episode, 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 [facility] [address] [facility] [id number], [place] [address]- 8381 Feb, Major depressive disorder, recurrent episode, 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 ; Adjustment disorder with anxious mood F43.22 and Delusional disorder F22 [facility] [id number] [address]- 5230 Jan, Major depressive disorder, recurrent episode, 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 [facility] [id number] [address]- 7786 Jan, Major depressive disorder, recurrent episode, 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 [facility] [id number] [address]- 5688 Jan, Major depressive disorder, recurrent episode, 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 [facility] [id number] [address]- 7733 Dec, Major depressive disorder, recurrent episode, 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 [facility] [id number] [address]- 7271 Dec, Major depressive disorder, recurrent episode, 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 ; Adjustment disorder with anxious mood F43.22 and Delusional disorder F22 [facility] [address] [facility] [id number], [place] [address]- 6443 Dec, Major depressive disorder, recurrent episode, 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 [facility] [address] [facility] [id number], [place] [address]- 1396 Dec, [facility] Jose Miguel ARRIETA [id number] [place] [address] Dec [facility] [address] [facility] [id number], [place] [address]- 7053 Dec, Major depressive disorder, recurrent episode, 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 [facility] [id number] [address]- 4775 Nov, Major depressive disorder, recurrent episode, 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 [facility] [address], [place] [address]- 2451 Nov, Major depressive disorder, recurrent episode, 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 [facility] [address] [address]- 2612 Nov, Major depressive disorder, recurrent episode, 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 and Adjustment disorder with anxious mood F43.22 [facility] [address] [address]- 9061 September, Major depressive disorder, recurrent episode, 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 [facility] [address] [address]- 2845 Aug, Major depressive disorder, recurrent episode, 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 [facility] [address], [place] [address]- 2667 Jul, Major depressive disorder, recurrent episode, 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 [facility] [address] [address]- 9380 Jul, [facility] [address] [address]- 9931 Jun, Major depressive disorder, recurrent episode, 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 and 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 [facility] [address], [place] [address]- [address] Jun, [facility] [address] [address]- 5028 May, Major depressive disorder, recurrent episode, 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 [facility] [id number] [place] [address]- 2326 Mar, [facility] [address] [facility] [id number], [place] [address]- 5376 Mar, [facility] [address] [facility] [id number], [place] [address]- 8656 Mar, [facility] [address] [facility] [id number], [place] [address]- 4647 Mar, Major depressive disorder, recurrent episode, 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 [facility] [address] [id number] [place] [address]- 3396 Feb, [facility] [address] [facility] [id number], [place] [address]- 4346 Feb, [facility] [address] [facility] [id number], [place] [address]- 0347 Feb, [facility] [address] [facility] [id number], [place] [address]- 1544 Jan, [facility] [address] [facility] [id number], [place] [address]- [address] Jan, Major depressive disorder, recurrent episode, 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 [facility] [address] [facility] [id number], [place] [address]- 3626 Jan, [facility] [address] [id number], [place] [address]- 5737 Oct, Major depressive disorder, recurrent episode, 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 [facility] [address] [facility] [id number][place] [address]26 September, [facility] [address] [facility] [id number], [place] [address]- 7026 September, [facility] [address] [facility] [id number] [place] [address]- 9988 Aug, Major depressive disorder, recurrent episode, 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 PLAN OF CARE Activity Details Follow Up 1 Week Reason:depression VITAL SIGNS MEDICATIONS Unknown Medications RESULTS No Results PROCEDURES Procedure Date Ordered Result Body Site [facility] VISIT MENTAL HEALTH ESTAB PT Jan 11, 2017 Psychotherapy, patient &/family, 45 minutes, established patient Jan 11, 2017 INSTRUCTIONS MEDICATIONS ADMINISTERED No Known Medications [...]
--- OUTSIDE RECORDS SUMMARY | 2017-10-18 06:55 | XMS REPORT ---
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
--- OUTSIDE RECORDS SUMMARY | 2017-10-18 06:55 | XMS REPORT ---
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 97630616 Problem Delusional disorder F22 Active 93296782 Problem Adjustment disorder with anxious mood F43.22 Active 71404507 ALLERGIES No Information ENCOUNTERS Encounter Location Date Diagnosis [facility] [id number] [place] [address] 97673- 5238 Oct, [facility] [id number] [place] [address] 87738- 9516 Aug, [place] [id number] [place] [address] 46876- 8371 Aug, Major depressive disorder, recurrent episode, 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 ; Delusional disorder F22 and RAD (generalized anxiety disorder) F41.1 [facility] [address] [place] [address] 53010- 2854 Jul, Major depressive disorder, recurrent episode, 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 ; Delusional disorder F22 and RAD (generalized anxiety disorder) F41.1 [facility] [id number] [place] [address] 66159- 9448 May, [facility] [id number] [place] [address] 61144- 7892 May, Major depressive disorder, recurrent episode, 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 [facility] [address] [address] May, Major depressive disorder, recurrent episode, 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 ; Adjustment disorder with anxious mood F43.22 and Delusional disorder F22 [facility] [address] [address] Mar, [facility] [id number] [place] [address] 61754- 5835 Mar, Major depressive disorder, recurrent episode, 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 [facility] [address] [address] 5[address] Mar, Major depressive disorder, recurrent episode, 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 ; Adjustment disorder with anxious mood F43.22 and Delusional disorder F22 [facility] [address] [address] 1859 Mar, Major depressive disorder, recurrent episode, 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 [facility] [address] [address] 9512 Feb, Major depressive disorder, recurrent episode, 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 [facility] [address] [facility] [id number] [address] Feb, Major depressive disorder, recurrent episode, 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 ; Adjustment disorder with anxious mood F43.22 and Delusional disorder F22 [facility] [address] [facility] [id number] [place] [address] Jan, Major depressive disorder, recurrent episode, 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 [facility] [address] [facility] [id number] [place] [address] 0637 Jan, Major depressive disorder, recurrent episode, 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 [facility] [id number] [address] 39[address] Jan, Major depressive disorder, recurrent episode, 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 [facility] [id number] [address]- 8266 Dec, Major depressive disorder, recurrent episode, 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 [facility] [id number] [address]- 5839 Dec, Major depressive disorder, recurrent episode, 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 ; Adjustment disorder with anxious mood F43.22 and Delusional disorder F22 [facility] [address] [facility] [id number] [place] [address]- 5668 Dec, Major depressive disorder, recurrent episode, 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 [facility] [address] [facility] [id number] [place] [address] 1148 Dec, [facility] [address] [id number] [place] [address] Dec [facility] [address] [facility] [id number] [place] [address]- [address]44 Dec, Major depressive disorder, recurrent episode, 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 [facility] [address] [address]- 7344 Nov, Major depressive disorder, recurrent episode, 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 [facility] [id number] [address] 4539 Nov, Major depressive disorder, recurrent episode, 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 [facility] [address] [address]- 1847 Nov, Major depressive disorder, recurrent episode, 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 and Adjustment disorder with anxious mood F43.22 [facility] [address] [address] 7[address] September, Major depressive disorder, recurrent episode, 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 [facility] [address] [address] 7669 Aug, Major depressive disorder, recurrent episode, 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 [facility] [address] [address]- 0543 Jul, Major depressive disorder, recurrent episode, 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 [facility] [address] [address]- 7868 Jul, [facility] [address] [address] 2404 Jun, Major depressive disorder, recurrent episode, 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 and 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 [facility] [id number] [address] 9[address] Jun, [facility] [address] [address]- 3205 May, Major depressive disorder, recurrent episode, 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 [facility] [address] [facility] [id number] [place] [address] Mar, [facility] [address] [facility] [id number] [place] [address]- 0416 Mar, [facility] [address] [facility] [id number] [place] [address]- 5926 Mar, [facility] [address] [facility] [id number] [place] [address] 2546 Mar, Major depressive disorder, recurrent episode, 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 [facility] [address] [facility] [id number] [place] [address]- 8276 Feb, [facility] [address] [facility] [id number] [place] [address]- 5196 Feb, [facility] [address] [facility] [id number] [place] [address]- 5764 Feb, [facility] [address] [facility] [id number] [place] [address]- 3432 Jan, [facility] [address] [facility] [id number] [place] [address]- 5356 Jan, Major depressive disorder, recurrent episode, 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 [facility] [address] [facility] [id number] [place] [address]- 4786 Jan, [facility] [address] [facility] [id number] [place] [address]- 1417 Oct, Major depressive disorder, recurrent episode, 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 [facility] [address] [facility] [id number] [place] [address] September, [facility] [address] [facility] [id number] [place] [address] September, [facility] [address] [facility] [id number] [place] [address]- 6395 Aug, Major depressive disorder, recurrent episode, 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
--- OUTSIDE RECORDS SUMMARY | 2017-10-18 06:55 | XMS REPORT ---
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 Active 82816802 Problem Delusional disorder F22 Active 05813612 Problem Adjustment disorder with anxious mood F43.22 Active 49681676 ALLERGIES No Information ENCOUNTERS Encounter Location Date Diagnosis [id number] [place] [address] 54049- 3956 Oct, [place] [id number] [place] [address] 34012- 8390 Aug, [place] [id number] [place] [address] 47530- 5661 Aug, Major depressive disorder, recurrent episode, 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 ; Delusional disorder F22 and RAD (generalized anxiety disorder) F41.1 [facility] [id number] [place] [address] 73160- 9977 Jul, Major depressive disorder, recurrent episode, 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 [place] [address] [place] [address] 08136- 1022 Jul, Major depressive disorder, recurrent episode, unspecified F33.9 [place] [id number] [place] [address] 67694- 3623 Jun, Major depressive disorder, recurrent episode, 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 [facility] [id number] [address]- 3553 May, Major depressive disorder, recurrent episode, 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 ; Delusional disorder F22 and RAD (generalized anxiety disorder) F41.1 [facility] [address] [address]- 7091 May, [facility] [id number] [address]- 5441 May, Major depressive disorder, recurrent episode, 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 [facility] [id number] [address]- 4040 May, Major depressive disorder, recurrent episode, 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 ; Adjustment disorder with anxious mood F43.22 and Delusional disorder F22 [facility] [id number] [address]- 3407 Mar, [facility] [id number] [address]- 1440 Mar, Major depressive disorder, recurrent episode, 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 [facility] [id number] [address]- 5421 Mar, Major depressive disorder, recurrent episode, 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 [facility] [id number] [address]- 1875 Jan, Major depressive disorder, recurrent episode, 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 [facility] [id number] [address]- 9417 Jan, Major depressive disorder, recurrent episode, 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 [id number] [place] [address]- 9574 Dec, [facility] Jose Miguel ARRIETA [id number] [place] [address] Dec [facility] [address] 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 [facility] [address] [address]- 7799 Nov, Major depressive disorder, recurrent episode, 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 and Adjustment disorder with anxious mood F43.22 [facility] [address] [address]- 0565 September, Major depressive disorder, recurrent episode, 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 [facility] [address] [address]- 2095 Aug, Major depressive disorder, recurrent episode, 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 [facility] [address] [address]- 2178 Jul, Major depressive disorder, recurrent episode, 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 [facility] [address] [address]- 8293 Jul, [facility] [address] [address]- 9434 Jun, Major depressive disorder, recurrent episode, 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 [id number] [place] [address]- 0496 Mar, [facility] [address] [facility] [id number] [place] [address]- 6276 Mar, [facility] [address] 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 [id number] [place] [address]- 9086 Feb, [facility] [address] [facility] [id number] [place] [address]- 9941 Feb, [facility] [address] [facility] [id number] [place] [address]- 0629 Jan, [facility] [address] 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 [id number] [place] 4746 September, [facility] [address] [facility] [id number] [place] [address]- 9496 September, [facility] [address] 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 [id number] [place] [address]- 5436 Jul, Recur major depre, part remis F33.41 IMMUNIZATIONS No Known Immunizations SOCIAL HISTORY Never Assessed REASON FOR VISIT f/u, Depression. PLAN OF CARE Activity Details Follow Up 1 Week Reason:depression VITAL SIGNS MEDICATIONS Unknown Medications RESULTS No Results PROCEDURES Procedure Date Ordered Result Body Site [facility] VISIT MENTAL HEALTH ESTAB PT Dec 14, 2016 Psychotherapy, patient &/family, 30 minutes, established patient Dec 14, 2016 INSTRUCTIONS MEDICATIONS ADMINISTERED No Known Medications [...]
--- OUTSIDE RECORDS SUMMARY | 2017-10-18 06:55 | XMS REPORT ---
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
[2017-10-18] MEDS ORDERED: NS IV 1000 ML 1,000 ML IV SCH ×2 (07:00→10:23)
[2017-10-18] MEDS ORDERED: LIDOCAINE 1% INJ 20 ML 20 ML VIAL ONE (07:17)
[2017-10-18] MEDS ORDERED: HEParin (CATH LAB) 2,000 ML IV ONE (07:17)
[2017-10-18] MEDS ORDERED: NS IV 1000 ML 1,000 ML ONE (07:17)
[2017-10-18 07:58] LABS: HEMOGLOBIN 15.5 G/DL (11.5-16.0); MEAN PLATELET VOLUME 10.8 FL (7.4-10.4); RED BLOOD COUNT 5.8 10^6/uL (4.35-5.85); RED CELL DISTRIBUTION WIDTH 16.7 % (10.0-14.5); WHITE BLOOD COUNT 7.8 10^3/uL (4.3-11.0)
[2017-10-18 08:04] LABS: PROTHROMBIN TIME PATIENT 12.7 SEC (12.2-14.7)
[2017-10-18 08:13] LABS: ALANINE AMINOTRANSFERASE 11 U/L (0-55); ALBUMIN 4.1 GM/DL (3.2-4.5); ALKALINE PHOSPHATASE 106 U/L (40-136); BILIRUBIN,TOTAL 0.4 MG/DL (0.1-1.0); BUN/CREATININE RATIO 14; CALCIUM 9.2 MG/DL (8.5-10.1); CARBON DIOXIDE 23 MMOL/L (21-32); CHLORIDE 99 MMOL/L (98-107); CHOLESTEROL 167 MG/DL (< 200); CREATININE SERUM 0.79 MG/DL (0.60-1.30); GFR ESTIMATED > 60; GLUCOSE 132 MG/DL (70-105); HDL CHOLESTEROL 57 MG/DL (40-60); POTASSIUM 4.1 MMOL/L (3.6-5.0); SODIUM 135 MMOL/L (135-145); TOTAL PROTEIN 7.6 GM/DL (6.4-8.2); TRIGLYCERIDES 59 MG/DL (<150); VLDL CHOLESTEROL 12 MG/DL (5-40)
[2017-10-18] MEDS ORDERED: CHOL5000 PO (08:28)
[2017-10-18] MEDS ORDERED: LEVO100T7 PO (08:28)
[2017-10-18] MEDS ORDERED: MELA3TAB PO (08:28)
[2017-10-18] MEDS ORDERED: POTA10TA10 PO (08:28)
[2017-10-18] MEDS ORDERED: FURO40TA4 PO (08:28)
[2017-10-18] MEDS ORDERED: ERGO50006 PO (08:28)
[2017-10-18] MEDS ORDERED: LORA0.5T PO (08:28)
[2017-10-18] MEDS ORDERED: DIVA250T2 PO (08:28)
[2017-10-18] MEDS ORDERED: OMEP20CA12 PO (08:28)
[2017-10-18] MEDS ORDERED: OLAN10TA3 PO (08:28)
[2017-10-18] MEDS ORDERED: ATOR40TA70 PO (08:28)
[2017-10-18] MEDS ORDERED: HYDR-700 PO (08:28)
[2017-10-18] MEDS ORDERED: OLAN5TAB25 PO (08:28)
[2017-10-18] MEDS ORDERED: VENL75TA2 PO (08:28)
[2017-10-18] MEDS ORDERED: ASPI-983 PO (08:32)
[2017-10-18] MEDS ORDERED: BIMA2.5D4 OU (08:41)
[2017-10-18] MEDS ORDERED: BRIM5DRO12 OS (08:41)
[2017-10-18] MEDS ORDERED: fentaNYL INJECTION 100 MCG/2 ML AMP ONE (09:13)
[2017-10-18] MEDS ORDERED: MIDAZOLAM 5 MG/5 ML (VERSED) VIAL ONE (09:13)
--- NOTE | 2017-10-18 10:23 | Cardiac Procedure Note-CS/ASA ---
Pre-Procedure Note Pre-Op Procedure Note H&P Reviewed The H&P was reviewed, patient examined and no changes noted. Date H&P Reviewed: Oct 18, 2017 Time H&P Reviewed: 09:10 Conscious Sedation Pre-Proced Time Reviewed: 09:10 ASA Class: 3 Airway Mallampati Classification: (nightmute appropriate class) I. II. III, IV Lungs Heart ASA score ASA 1: a normal healthy patient ASA 2: a patient with a mild systemic disease (mid diabetes, controlled hypertension, obesity ASA 3: a patient with a severe systemic disease that limits activity (angina , COPD, prior Myocardial infarction) ASA 4: a patient with an incapacitating disease that is a constant threat to life (CHF, renal failure) ASA 5: a moribund patient not expected to survive 24 hrs. (ruptured aneurysm) ASA 6: a declared brain patient whose organs are being harvested. For emergent operations, add the letter E after the classification Grade 2 Sedation Plan: Analgesia, Amnesia, Plan communicated to team members, Discussed options with patient/fam, Discussed risks with patient/fam Note The patient is an appropriate candidate to undergo the planned procedure, sedation, and anesthesia. The patient immediately re-assessed prior to indication. SUSSY CARDENAS MD FACP FAC CCDS Oct 18, 2017 10:23
--- NOTE | 2017-10-18 10:26 | Discharge Inst-Cardiology ---
Discharge Inst-Cardiac Discharge Medications Continued Medications: Aspirin (Aspirin EC) 81 Mg Tablet.dr 81 MG PO DAILY, TAB Atorvastatin Calcium (Atorvastatin Calcium) 40 Mg Tablet 40 MG PO HS, TAB Bimatoprost (Lumigan) 2.5 Ml Drops 1 DROP OU HS, DROPS Brimonidine Tartrate (Alphagan P) 5 Ml Drops 1 DROP OS BID, DROPS Cholecalciferol (Vitamin D3) (Vitamin D3) 5,000 Unit Capsule 5000 UNIT PO DAILY, CAP Divalproex Sodium (Depakote) 250 Mg Tablet.dr 250 MG PO TID, TAB Ergocalciferol (Vitamin D2) (Vitamin D2) 50,000 Unit Capsule 96038 UNIT PO Sa, CAP Furosemide (Furosemide) 40 Mg Tablet 40 MG PO DAILY PRN for SWELLING, TAB Hydroxyzine HCl (Hydroxyzine HCl) 25 Mg Tablet 12.5 MG PO BID, TAB TAKES 1/2 (25MG) TABLET Levothyroxine Sodium (Levothyroxine Sodium) 100 Mcg Tablet 100 MCG PO DAILY, TAB Lorazepam (Lorazepam) 0.5 Mg Tablet 0.5 MG PO HS PRN for ANXIETY, TAB Melatonin (Melatonin) 3 Mg Tablet 3 MG PO HS, TAB Olanzapine (Olanzapine) 5 Mg Tablet 5 MG PO DAILY, TAB Olanzapine (Zyprexa) 10 Mg Tablet 10 MG PO 1700, TAB Omeprazole (Omeprazole) 20 Mg Capsule.dr 20 MG PO DAILY, CAP Potassium Chloride (Potassium Chloride) 10 Meq Tablet.er 10 MEQ PO DAILY PRN for WHEN TAKING FUROSEMIDE, TAB Venlafaxine HCl (Venlafaxine HCl ER) 75 Mg Tab.er.24 75 MG PO DAILY, TAB SUSSY CARDENAS MD FACP FAC CCDS Oct 18, 2017 10:26
--- NOTE | 2017-10-18 10:27 | Discharge Inst-Post CATH ---
Discharge Inst-CATH Post Cardiac Cath D/C Inst Follow Up/Plan F/u with Dr Adorno in 2 weeks CARDIAC CATH DISCHARGE INSTRUCTIONS *Hold Metformin for 48 hours post heart cath. ACTIVITY * Go Home directly and rest. * Limit activity of the leg (or wrist if it was used) for 7 days including aerobics, swimming, jogging, bicycling, etc. * Restrict stair-climbing for 7 days if possible, if not, climb up with your non -cath leg, then bring together on the same step. * Avoid lifting, pushing, pulling or excessive movement of the affected extremity for 7 days. * Customary sexual activity may be resumed after 2 days-use caution not to use a position that strains or causes pain to the affected extremity. * No driving for 24 hours. * NO SMOKING. * Avoid straining for bowel movements for 7 days. * Gentle walking on level ground is allowed. * Returning to work will depend on the type of procedure and the results. Your doctor will discuss this with you. CALL YOUR DOCTOR FOR ANY OF THE FOLLOWING: *If bleeding from the puncture site occurs- Apply gentle pressure to site with clean cloth and call your doctor or EMS. * If a knot or lump forms under the skin, increases in size, or causes pain. * If bruising appears to be worsening or moving further down your leg instead of disappearing. * Temperature above 101 F. CARE OF YOUR GROIN INCISION; * Bruising or purple discoloration of the skin near the puncture site is common. * You may shower only, no bathtub bathing for 5 days. Be careful to avoid slipping as your leg may feel stiff. * If a closure device was used on your femoral artery, please see the attached guide regarding care of the device and your leg. * REMOVE the dressing from your groin the next day after your procedure in the shower. CARE OF YOUR WRIST INCISION; * Bruising or purple discoloration of the skin near the puncture site is common. * You may shower. * DO NOT submerge wrist. * Remove dressing in 24 hours. SUSSY ADORNO MD [facility] CCDS Oct 18, 2017 10:27
[2017-10-18] MEDS ORDERED: PATIENT MAY USE OWN MEDS, ALL PO SCH (10:30)
--- NOTE | 2017-10-18 12:39 | CARDIAC CATHETERIZATION ---
DATE OF SERVICE: 10/18/2017 CARDIAC CATHETERIZATION REPORT The patient is an 82-year-old lady with acute end-diastolic congestive heart failure. Cardiac catheterization was carried out today for further evaluation. Informed consent was obtained. DESCRIPTION OF PROCEDURE: She was brought to the cardiac catheterization laboratory in a fasting state. Right groin was prepared and draped in usual sterile fashion. Lidocaine 1% for local anesthesia. Modified Seldinger technique was used to advance a 5-[place] sheath in the right femoral artery. A 5-[place] JL4 catheter for left coronary angiography. A 5-[place] JR4 catheter for right coronary artery. A 5-[place] pigtail catheter used for left heart catheterization and left ventricular angiography. She tolerated the procedure well. At the end of the procedure, angiography of the right femoral artery was carried out through the sheath and Mynx was used to achieve hemostasis. She tolerated the procedure well. HEMODYNAMICS: Left ventricular end-diastolic pressure following coronary angiography was 18 mmHg. There is no significant pressure gradient on pullback across the aortic valve. Ascending aortic pressure was 127/72 with a mean of 97 mmHg. LEFT VENTRICULAR ANGIOGRAPHY: Left ventricular angiography was carried out in the right anterior oblique projection only. Left ventricular systolic function is hyperdynamic. No distinct regional wall motion abnormality is seen and left ventricular ejection fraction is estimated to be 75%. CORONARY ANGIOGRAPHY: Mild to moderate coronary calcification is present. Left main coronary artery, left anterior descending artery, left circumflex artery and right coronary artery are all free of any angiographically significant obstructive disease. Right coronary artery is dominant. CONCLUSIONS: 1. Mild to moderate coronary artery disease without angiographic evidence of any obstructive coronary artery disease. 2. Hyperdynamic left ventricular systolic function with ejection fraction of 75%. 3. Mild elevation of left ventricular end-diastolic pressure. 4. No significant mitral regurgitation. DISCUSSION AND RECOMMENDATIONS: Based on results of the study, it appears appropriate to continue a conservative approach. Risk factor modification has been reviewed. Current regimen is being continued and outpatient followup is advised. Job ID: [id number] DocumentID: [id number] Dictated Date: 10/18/2017 10:00:29 Academic Tutor Date: 10/18/2017 11:36:38 Dictated By: SUSSY CARDENAS MD, MA, FACP, FACC,
== END 2017-10-18 14:00 | disposition home or self-care (01) ==
LOC: CATH 06:48 → SURG 10:13 → CATH 14:00
PROVIDERS: ATTEND Internal Medicine Cardiovascular Disease
DX: I25.10 Atherosclerotic heart disease of native coronary artery without angina pectoris (principal); I50.31 Acute diastolic (congestive) heart failure; E78.5 Hyperlipidemia, unspecified; I73.9 Peripheral vascular disease, unspecified; F31.9 Bipolar disorder, unspecified; I77.89 Other specified disorders of arteries and arterioles; K21.9 Gastro-esophageal reflux disease without esophagitis; G47.30 Sleep apnea, unspecified; Z96.653 Presence of artificial knee joint, bilateral; K58.9 Irritable bowel syndrome, unspecified; I27.20 Pulmonary hypertension, unspecified; E66.9 Obesity, unspecified; Z68.41 Body mass index [BMI] 40.0-44.9, adult
CPT/HCPCS: 36415; 80053; 80061; 85027; 85610; 85730; 87081; 93458

== ENCOUNTER → 2017-10-31 | Outpatient (CLI) | payer MEDICARE ==
[~2017-10-31] MED LIST changes: +ASPI-983 PO; +ATOR40TA70 PO; +BIMA2.5D4 OU; +BRIM5DRO12 OS; +CHOL5000 PO; +DIVA250T2 PO; +ERGO50006 PO; +FURO40TA4 PO; +HYDR-700 PO; +LEVO100T7 PO; +LORA0.5T PO; +MELA3TAB PO; +OLAN10TA3 PO; +OLAN5TAB25 PO; +POTA10TA10 PO; +VENL75TA2 PO
--- NOTE | 2017-10-31 15:12 | Diagnostic Imaging Report ---
INDICATION: Right breast calcifications. The patient presents for additional views. COMPARISON: Recent screening study from 10/12/2017 as well as prior screening mammograms from 04/23/2015 and 02/20/2014. TECHNIQUE: Unilateral right 2D and 3D diagnostic mammography was performed. The views included magnification CC and ML views as well as conventional 90 degree lateral views. FINDINGS: Additional views show a cluster of microcalcifications in the upper and outer aspect of the right breast at mid depth. These are indeterminate but do appear to be clustered and new since the prior mammograms. No associated soft tissue mass is seen. No other abnormalities are identified. IMPRESSION: New cluster of microcalcifications in the upper-outer right breast at mid depth. Tissue sampling is recommended. These would likely be amenable to stereotactic biopsy approach. The results and recommendations were discussed with the patient prior to this dictation. Dictated by: Dictated on workstation # [id number]
== END ==
LOC: RAD 13:43
PROVIDERS: ATTEND Nurse Practitioner Family
DX: R92.0 Mammographic microcalcification found on diagnostic imaging of breast (principal)

== ENCOUNTER → 2017-11-17 | Outpatient (CLI) | payer MEDICARE ==
[~2017-11-17] VITALS: Ht 152.4 cm; Wt 100.2 kg
[~2017-11-17] MED LIST changes: +LIDOCAINE 1% INJ 20 ML 20 ML VIAL INJ ONE
[2017-11-17 09:50] VITALS: BP 129/67
[2017-11-17 11:15] VITALS: BP 127/58
--- NOTE | 2017-11-17 15:26 | Diagnostic Imaging Report ---
Indication: Right breast calcifications. Patient presents for stereotactic core biopsy of the right breast. Correlation is made with the recent mammograms from 10/31/2017 and 10/12/2017. The patient was brought to the mammography suite. The breast was positioned in the lateral medial position. Stereotactic imaging was performed for localization of the cluster of microcalcifications in the outer right breast. The breast was then prepped and draped in usual sterile fashion. A small amount of 1% lidocaine was utilized for local anesthesia. A 10-gauge core needle was advanced to the appropriate position. Total of 4 core biopsies with vacuum-assisted device was performed. The specimen radiograph demonstrates numerous calcifications in the specimen. 4. Next, stereotactic clip was deployed. The needle was withdrawn, hemostasis was obtained using manual compression. Postprocedure mammogram does show the marker clip to be somewhat centrally located on the CC view which may be owing to some medial clip migration. Majority of calcifications seen in the lateral right breast appear to have been removed. Impression: Stereotactically-assisted core biopsy of the calcifications in the outer right breast with vacuum-assisted device, as described. Pathology results are currently pending. Dictated by: Dictated on workstation # [id number]
== END ==
LOC: RAD 09:42
PROVIDERS: ATTEND Nurse Practitioner Family
DX: D24.1 Benign neoplasm of right breast (principal)
CPT/HCPCS: 19081; 88305

== ENCOUNTER → 2018-01-26 | Outpatient (CLI) | payer MEDICARE ==
[~2018-01-26] MED LIST changes: -LIDOCAINE 1% INJ 20 ML 20 ML VIAL INJ ONE
--- NOTE | 2018-01-26 12:06 | Diagnostic Imaging Report ---
PROCEDURE: CT chest without contrast. TECHNIQUE: Multiple contiguous axial images were obtained through the chest without the use of intravenous contrast. INDICATION: Shortness of air. COMPARISON: No prior CT chest studies are available for comparison. FINDINGS: No axillary lymphadenopathy is detected. Hilar and mediastinal evaluation is limited without intravenous contrast. No gross abnormality is seen. There are coronary arterial calcifications present. No pericardial or pleural fluid is seen. There is a large hiatal hernia. Central airways appear to be patent. Pulmonary parenchyma is clear apart from minimal dependent atelectasis in the lung bases. No parenchymal mass is identified. The upper abdomen is unremarkable. IMPRESSION: Hiatal hernia. No other significant abnormality is detected. Dictated by: Dictated on workstation # [id number]
== END ==
LOC: RAD 07:40
PROVIDERS: ATTEND Nurse Practitioner Family
DX: J30.9 Allergic rhinitis, unspecified (principal); R06.09 Other forms of dyspnea; M79.89 Other specified soft tissue disorders; K44.9 Diaphragmatic hernia without obstruction or gangrene
CPT/HCPCS: 36415; 71250; 83880

== ENCOUNTER 2018-02-01 20:45 | Outpatient (CLI) | payer MEDICARE | END 2018-02-02 06:36 | disposition home or self-care (01) | LOC: SLEEP 20:45 | PROVIDERS: ATTEND Nurse Practitioner Family | DX: G47.33 Obstructive sleep apnea (adult) (pediatric) (principal); R09.02 Hypoxemia; R06.83 Snoring; G47.61 Periodic limb movement disorder; J44.9 Chronic obstructive pulmonary disease, unspecified; G47.10 Hypersomnia, unspecified; J30.9 Allergic rhinitis, unspecified; R06.09 Other forms of dyspnea | CPT/HCPCS: 95810 ==

== ENCOUNTER → 2018-02-02 | Outpatient (CLI) | payer MEDICARE ==
--- NOTE | 2018-02-02 19:13 | Diagnostic Imaging Report ---
PROCEDURE: US Venous Lower Ext [place]. TECHNIQUE: Multiple real-time grayscale images were obtained over the lower extremities in various projections, bilaterally. Additional duplex Doppler and color Doppler images were also obtained. INDICATION: Bilateral lower extremity swelling. There are no prior studies available for comparison. FINDINGS: The deep venous system was visualized from the common femoral to popliteal veins bilaterally. There is good blood flow and compressibility at all levels. The calf veins are difficult to image due to the bilateral leg edema. IMPRESSION: The deep venous system, where visualized shows no evidence for a deep venous thrombosis. The calf veins are difficult to image however. Dictated by: Dictated on workstation # [id number]
== END ==
LOC: RAD 11:29
PROVIDERS: ATTEND Nurse Practitioner Family
DX: M79.89 Other specified soft tissue disorders (principal)
CPT/HCPCS: 93970

== ENCOUNTER → 2018-02-06 | Outpatient (CLI) | payer MEDICARE | LOC: RT 08:24 | PROVIDERS: ATTEND Nurse Practitioner Family | DX: R06.09 Other forms of dyspnea (principal) ==

== ENCOUNTER → 2018-02-28 | Outpatient (CLI) | payer MEDICARE ==
[2018-02-28 15:54] LABS: ABG BASE EXCESS 4.3 MMOL/L (-2.5-2.5); ABG OXYGEN SATURATION 89 % (94-100); ABG PCO2 42 MMHG (35-45); ABG PH 7.45 (7.37-7.43); ABG PO2 63 MMHG (79-93); ABG TCO2 29.7 MMOL/L (21.0-31.0)
[2018-02-28 15:55] LABS: ALLENS TEST POSITIVE; INSPIRED O2 ROOM AIR; PATIENT TEMP 97.6; VENTILATOR NO
== END ==
LOC: RT 15:21
PROVIDERS: ATTEND Nurse Practitioner Family
DX: R06.09 Other forms of dyspnea (principal); G47.34 Idiopathic sleep related nonobstructive alveolar hypoventilation; G47.10 Hypersomnia, unspecified; J30.9 Allergic rhinitis, unspecified
CPT/HCPCS: 36600; 82805; 94761

== ENCOUNTER → 2018-03-28 | Outpatient (CLI) | payer MEDICARE | LOC: LAB 14:25 | PROVIDERS: ATTEND Nurse Practitioner Family | DX: G47.10 Hypersomnia, unspecified (principal); R06.09 Other forms of dyspnea; R09.02 Hypoxemia; J30.9 Allergic rhinitis, unspecified; R94.2 Abnormal results of pulmonary function studies ==

== ENCOUNTER 2018-05-01 15:51 | Outpatient (RCR) | payer MEDICARE ==
[2018-05-02 08:29] LABS: BILIRUBIN,URINE NEGATIVE (NEGATIVE); CLARITY,URINE CLEAR; COLOR,URINE YELLOW; GLUCOSE, URINE (UA) NEGATIVE (NEGATIVE); KETONES,URINE NEGATIVE (NEGATIVE); LEUKOCYTE ESTERASE ,URINE 2+ (NEGATIVE); NITRITE,URINE NEGATIVE (NEGATIVE); PH,URINE 6 (5-9); PROTEIN,URINE NEGATIVE (NEGATIVE); UROBILINOGEN,URINE NORMAL (NORMAL)
[2018-05-02 08:46] LABS: BACTERIA,URINE TRACE /HPF; RBC,URINE 0-2 /HPF
== END 2018-07-30 | disposition home or self-care (01) ==
LOC: LAB 15:51 → EDSTATUS 16:13
PROVIDERS: ATTEND Nurse Practitioner
DX: R39.15 Urgency of urination (principal); R35.0 Frequency of micturition
CPT/HCPCS: 81000; 87088

== ENCOUNTER → 2018-07-26 | Outpatient (CLI) | payer MEDICARE ==
--- NOTE | 2018-07-26 19:00 | Diagnostic Imaging Report ---
INDICATION: Follow up right breast biopsy. COMPARISON: Correlation is made with prior mammograms from 11/17/2017, 10/31/2017, as well as 10/11/2017. The current study was also evaluated with a Computer Aided Detection (CAD) system. FINDINGS: Post-biopsy changes in the upper right breast are seen with stereotactic clip in place. There are some residual calcifications in the upper and outer right breast, which have a fairly benign appearance. No soft tissue mass is seen. No new abnormality is seen. Right axilla is unremarkable. IMPRESSION: Stable right mammogram with no mammographic features suspicious for malignancy. ACR BI-RADS Category 2: Benign findings. Result letter will be mailed to the patient. Note: At least 10% of breast cancer is not imaged by mammography. Dictated by: Dictated on workstation # [id number]
== END ==
LOC: RAD 12:55
PROVIDERS: ATTEND Nurse Practitioner
DX: R92.8 Other abnormal and inconclusive findings on diagnostic imaging of breast (principal); Z98.890 Other specified postprocedural states

== ENCOUNTER 2018-08-01 05:55 | Outpatient (CLI) | payer MEDICARE ==
[~2018-08-01] VITALS: Ht 152.4 cm; Wt 103.9 kg
[2018-08-01] MEDS ORDERED: LACT10SO33 PO (12:58)
[2018-08-01] MEDS ORDERED: OLAN10TA3 PO (12:58)
[2018-08-01] MEDS ORDERED: OLAN5TAB3 PO (12:58)
== END 2018-08-01 13:30 | disposition home or self-care (01) ==
LOC: PREOP 05:55
PROVIDERS: ATTEND Surgery
DX: Z01.818 Encounter for other preprocedural examination (principal)

== ENCOUNTER → 2018-09-14 | Outpatient (CLI) | payer MEDICARE ==
[~2018-09-14] MED LIST changes: +LACT10SO33 PO; +OLAN5TAB3 PO
--- NOTE | 2018-09-14 12:09 | Diagnostic Imaging Report ---
PROCEDURE: CT chest without contrast. TECHNIQUE: Multiple contiguous axial images were obtained through the chest without the use of intravenous contrast. High-resolution protocol was utilized, and the patient was scanned in both prone and supine positions. Auto Exposure Controls were utilized during the CT exam to meet ALARA standards for radiation dose reduction. INDICATION: Shortness of breath. FINDINGS: The previous CT chest exam performed on 01/26/2018 noted a large hiatal hernia but failed to show any sign of an acute cardiopulmonary abnormality. On this exam, there is still no sign of failure, pneumonia, or of a pleural effusion to indicate an acute abnormality. There are mild chronic pulmonary changes, but there does not appear to be any significant component of emphysema or interstitial lung disease. The heart is mildly enlarged, and there are dense coronary artery calcifications involving the LAD. The ascending aorta is prominent but not aneurysmally dilated. There is no obvious mediastinal or hilar adenopathy. The thyroid gland was not well visualized. The breasts, where imaged, show no sign of a mass. The sections through the upper abdomen are unremarkable for an acute abnormality. As noted on the prior exam, much of the stomach lies above the diaphragm. IMPRESSION: 1. There is no evidence for an acute cardiopulmonary abnormality. 2. There is chronic pulmonary disease, but there is no significant component of emphysema or chronic interstitial lung disease. 3. The heart is mildly enlarged, and there are coronary artery calcifications evident. 4. There is a large hiatal hernia. Dictated by: Dictated on workstation # [id number]
== END ==
LOC: RAD 08:50
PROVIDERS: ATTEND Internal Medicine Critical Care Medicine
DX: J98.4 Other disorders of lung (principal); I51.7 Cardiomegaly; K44.9 Diaphragmatic hernia without obstruction or gangrene; G47.34 Idiopathic sleep related nonobstructive alveolar hypoventilation; J30.9 Allergic rhinitis, unspecified; R94.2 Abnormal results of pulmonary function studies; G47.10 Hypersomnia, unspecified
CPT/HCPCS: 71250

== ENCOUNTER 2018-11-07 14:00 | Outpatient (RCR) | payer MEDICARE ==
[2018-09-12 13:58] VITALS: BP 112/70
[2018-09-12 14:50] VITALS: BP 102/80
[2018-09-14 13:50] VITALS: BP 115/60
[2018-09-14 15:05] VITALS: BP 125/68
[2018-09-19 13:50] VITALS: BP 128/76
[2018-09-19 14:50] VITALS: BP 140/60
[2018-09-21 13:57] VITALS: BP 128/74
[2018-09-21 15:00] VITALS: BP_SYST 115; BP_DIAS 60; BP_DIAS 70
[2018-09-21 15:40] VITALS: BP 120/50
[2018-09-26 13:42] VITALS: BP 120/80
[2018-09-26 14:32] VITALS: BP 128/60
[2018-09-28 13:55] VITALS: BP 135/80
[2018-09-28 14:50] VITALS: BP 110/88
[2018-10-03 13:30] VITALS: BP 106/58
[2018-10-03 14:30] VITALS: BP 101/40
[2018-10-10 13:43] VITALS: BP 130/68
[2018-10-10 14:45] VITALS: BP 130/80
[2018-10-12 13:45] VITALS: BP 140/60
[2018-10-17 14:00] VITALS: BP 124/68
[2018-10-17 14:55] VITALS: BP 110/68
[2018-10-19 13:54] VITALS: BP 121/70
[2018-10-19 14:47] VITALS: BP 112/60
[2018-10-24 13:40] VITALS: BP 125/82
[2018-10-24 14:48] VITALS: BP 101/60
[2018-10-26 14:00] VITALS: BP 104/70
[2018-10-26 15:01] VITALS: BP 130/80
[2018-10-31 13:55] VITALS: BP 112/64
[2018-10-31 15:02] VITALS: BP 90/60
[2018-11-02 14:00] VITALS: BP 112/70
[2018-11-02 15:00] VITALS: BP 116/80
[2018-11-07 14:30] VITALS: BP 118/61
[2018-11-07 15:30] VITALS: BP 118/60
[2018-11-14 14:00] VITALS: BP 120/60
[2018-11-14 15:05] VITALS: BP 120/70
[2018-11-21 14:00] VITALS: BP 116/68
[2018-11-21 15:11] VITALS: BP 108/60
== END 2018-11-19 | disposition home or self-care (01) ==
LOC: PULM 14:00
PROVIDERS: ATTEND Nurse Practitioner Family
DX: J98.4 Other disorders of lung (principal); R94.2 Abnormal results of pulmonary function studies; R09.02 Hypoxemia; Z99.81 Dependence on supplemental oxygen
CPT/HCPCS: 99211

== ENCOUNTER → 2018-11-23 | Outpatient (CLI) | payer MEDICARE ==
--- NOTE | 2018-11-23 10:04 | Diagnostic Imaging Report ---
INDICATION: Six-month followup after right breast biopsy. Patient had a right breast stereotactic biopsy with a benign result. COMPARISON: 07/26/2018 and 10/31/2017. TECHNIQUE: 2D and 3D bilateral diagnostic mammography was performed with CAD. FINDINGS: A stereotactic clip in the upper outer right breast is noted. There are benign-appearing calcifications bilaterally. The calcifications appear stable. No new mass or malignant appearing microcalcifications are seen. The axillae are unremarkable. IMPRESSION: Stable bilateral mammograms with no mammographic features suspicious for malignancy. ACR BI-RADS Category 2: Benign findings. Result letter will be mailed to the patient. Note: At least 10% of breast cancer is not imaged by mammography. Dictated by: Dictated on workstation # [id number]
== END ==
LOC: RAD 08:24
PROVIDERS: ATTEND Internal Medicine
DX: R92.8 Other abnormal and inconclusive findings on diagnostic imaging of breast (principal); Z98.890 Other specified postprocedural states
CPT/HCPCS: 77066

== ENCOUNTER 2018-12-07 14:30 | Outpatient (RCR) | payer MEDICARE ==
[2018-11-23 14:15] VITALS: BP 116/60
[2018-11-23 15:00] VITALS: BP 130/60
[2018-11-28 13:55] VITALS: BP 140/70
[2018-11-28 14:55] VITALS: BP 122/87
[2018-11-30 14:00] VITALS: BP 130/60
[2018-11-30 15:05] VITALS: BP 130/60
[2018-12-05 14:25] VITALS: BP 112/64
[2018-12-05 15:25] VITALS: BP 120/60
[2018-12-07 14:30] VITALS: BP 121/80
[~2018-12-07 14:30] MED LIST changes: +OMEP20CA13 PO
[2018-12-07 15:31] VITALS: BP 106/70
[2018-12-12 14:20] VITALS: BP 120/70
[2018-12-12 15:20] VITALS: BP 121/84
== END 2019-02-26 | disposition home or self-care (01) ==
LOC: PULM 14:30
PROVIDERS: ATTEND Nurse Practitioner Family
DX: J98.4 Other disorders of lung (principal); R94.2 Abnormal results of pulmonary function studies; R09.02 Hypoxemia; Z99.81 Dependence on supplemental oxygen

== ENCOUNTER → 2019-02-26 | Outpatient (CLI) | payer MEDICARE ==
--- NOTE | 2019-02-26 09:10 | Diagnostic Imaging Report ---
PROCEDURE: US left lower extremity venous. TECHNIQUE: Multiple real-time grayscale images were obtained over the left lower extremity in various projections. Additional duplex Doppler and color Doppler images were also obtained. INDICATION: The deep veins have good color filling and compressibility. There is normal phasic flow and an appropriate response to distal augmentation. IMPRESSION: Negative venous DOPPLER left leg Dictated by: Dictated on workstation # [id number]
== END ==
LOC: RAD 08:02
PROVIDERS: ATTEND Nurse Practitioner Family
DX: M79.605 Pain in left leg (principal); R60.0 Localized edema

== ENCOUNTER → 2019-04-10 | Outpatient (CLI) | payer MEDICARE ==
--- NOTE | 2019-04-10 10:57 | Diagnostic Imaging Report ---
PROCEDURE: CT urinary tract, rule out kidney stone. TECHNIQUE: Multiple contiguous axial images were obtained through the abdomen and pelvis without the use of intravenous contrast. Auto Exposure Controls were utilized during the CT exam to meet ALARA standards for radiation dose reduction. INDICATION: Hematuria, urinary frequency, left-sided back pain FINDINGS: There are no radiodense urinary tract stones. There is no hydroureteronephrosis. No perinephric or periureteric edema. The unopacified urinary bladder unremarkable. The uterus and adnexa are unremarkable. There is no appendicitis or diverticulitis. Colon is nondistended. There is some prominence of fat within the colonic lane which may reflect sequelae of chronic inflammatory changes. No pericolonic edema. There is a moderate retrocardiac hernia. The liver, spleen, adrenals, pancreas, gallbladder and bile ducts normal. The aorta is calcified but nonaneurysmal. IMPRESSION: Noninflamed diverticulosis. Unobstructed nonfocal urinary tracts. Prominent fatty deposition along the lane of the colon without acute inflammatory changes suggest chronic inflammatory response. No ascites or fluid collection. No acute finding apparent. Hiatal hernia noted. Dictated by: Dictated on workstation # [id number]
== END ==
LOC: RAD 10:31
PROVIDERS: ATTEND Physician Assistant
DX: K57.90 Diverticulosis of intestine, part unspecified, without perforation or abscess without bleeding (principal); R31.9 Hematuria, unspecified; R35.0 Frequency of micturition; M54.5 Low back pain
CPT/HCPCS: 74176

== ENCOUNTER 2019-11-07 16:07 | Emergency (ER) | payer MEDICARE ==
[~2019-11-07] VITALS: Ht 152 cm; Wt 105.4 kg
[~2019-11-07 16:07] MED LIST changes: -MELA3TAB PO; +MELA3TAB39 PO; -OMEP20CA13 PO; +OMEP20CA18 PO
[2019-11-07 16:20] VITALS: BP 146/101
--- NOTE | 2019-11-07 16:57 | ED General ---
General Chief Complaint: Lower Extremity Stated Complaint: SOA Nursing Triage Note: TO ER VIA . STATES SHE IS SCHEDULED FOR A ECHO AND ULTRASOUND TO LEFT LEG SWELLING NEXT TUESDAY. TODAY THOUGHT THE TOP OF HER FOOT LOOKS RED. NOW SINCE BEING IN DIFFERENT LIGHT PT THINKS IT DOES NOT LOOK RED. Nursing Sepsis Screen: No Definite Risk Source of Information: Patient Exam Limitations: No Limitations History of Present Illness Date Seen by Provider: Nov 07, 2019 Time Seen by Provider: 16:15 Initial Comments This 84-year-old woman presents to the emergency room with concerns about a dark area on her left foot. She has had recent issues with swelling for which she is undergoing outpatient workup including echo and ultrasound. The area of concern is about the size of a quarter on the dorsum of the left foot. She does not recall any injury. Allergies and Home Medications Allergies Coded Allergies: Sulfa (Sulfonamide Antibiotics) (Verified Allergy, Unknown, 08/01/18) bacitracin (Unverified Allergy, Unknown, 08/01/18) diphenhydramine (Unverified Allergy, Unknown, 08/01/18) gramicidin D (Unverified Allergy, Unknown, 08/01/18) neomycin (Unverified Allergy, Unknown, 08/01/18) polymyxin B (Unverified Allergy, Unknown, 08/01/18) quinine (Unverified Allergy, Unknown, 08/01/18) Uncoded Allergies: IV CONTRAST (Allergy, Unknown, 06/25/14) Home Medications Aspirin 81 Mg Tablet.dr, 81 MG PO DAILY, (Reported) Atorvastatin Calcium 40 Mg Tablet, 40 MG PO HS, (Reported) Bimatoprost 2.5 Ml Drops, 1 DROP OU HS, (Reported) Brimonidine Tartrate 5 Ml Drops, 1 DROP OS BID, (Reported) Cholecalciferol (Vitamin D3) 5,000 Unit Capsule, 5,000 UNIT PO DAILY, (Reported) Divalproex Sodium 250 Mg Tablet.dr, 250 MG PO TID, (Reported) Furosemide 40 Mg Tablet, 40 MG PO DAILY PRN for SWELLING, (Reported) Hydroxyzine HCl 25 Mg Tablet, 12.5 MG PO BID, (Reported) TAKES 1/2 (25MG) TABLET Lactulose 10 Gm/15 Ml Solution, 20 GM PO BID, (Reported) Levothyroxine Sodium 100 Mcg Tablet, 100 MCG PO DAILY, (Reported) Lorazepam 0.5 Mg Tablet, 0.5 MG PO HS PRN for ANXIETY, (Reported) Melatonin 3 Mg Tablet, 3 MG PO HS, (Reported) Olanzapine 5 Mg Tablet, 5 MG PO DAILY, (Reported) Olanzapine 10 Mg Tablet, 10 MG PO HS, (Reported) Omeprazole 20 Mg Capsule.dr, 20 MG PO DAILY, (Reported) Potassium Chloride 10 Meq Tablet.er, 10 MEQ PO DAILY PRN for WHEN TAKING FUROSEMIDE, (Reported) Venlafaxine HCl 75 Mg Tab.er.24, 75 MG PO DAILY, (Reported) Patient Home Medication List Home Medication List Reviewed: Yes Review of Systems Review of Systems Constitutional: no symptoms reported EENTM: no symptoms reported Respiratory: no symptoms reported Cardiovascular: see HPI Gastrointestinal: no symptoms reported Genitourinary: no symptoms reported Musculoskeletal: no symptoms reported Skin: no symptoms reported Psychiatric/Neurological: Tremors (tardive movements or tremors) Hematologic/Lymphatic: No Symptoms Reported Past [id number]-Qlcuxs-Llwzrr Hx Past Med/Social Hx: Reviewed Nursing Past Med/Soc Hx Patient Social History Alcohol Use: Denies Use Recreational Drug Use: No Smoking Status: Never a Smoker 2nd Hand Smoke Exposure: No Recent Foreign Travel: No Contact w/Someone Who Travel: No Recent Infectious Disease Expo: No Recent Hopitalizations: Yes (SURGERIES R/T) Immunizations Up To Date Date of Pneumonia Vaccine: October 05, 2017 Date of Influenza Vaccine: Feb 20, 2018 Seasonal Allergies Seasonal Allergies: No Past Medical History Surgeries: Yes (INÉS TKR,APPY,2 C-SECTIONS) Thyroidectomy Respiratory: Yes (STATES CANT WEAR MASK, O2 2L-HAS LOW O2 SATS) Sleep Apnea Cardiac: Yes High Cholesterol Neurological: No Reproductive Disorders: No 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 Sexually Transmitted Disease: No HIV/AIDS: No Genitourinary: No Gastrointestinal: Yes Gastroesophageal Reflux, Chronic Constipation, Irritable Bowel Musculoskeletal: Yes Arthritis Endocrine: Yes (RIGHT SIDE OF THYROID REMOVED) Hypothyroidsim HEENT: Yes (GLASSES, TOP DENTURES) Loss of Vision: Bilateral Hearing Impairment: Denies Cancer: No Psychosocial: Yes (HX DEPRESSION, BI POLAR) Anxiety, Bipolar, Depression Integumentary: No Blood Disorders: No Adverse Reaction/Blood Tranf: No (HAS HAD BLOOD WITH NO REACTION) Family Medical History No Pertinent Family Hx Physical Exam Vital Signs Vital Signs - First Documented 11/07/19 16:20 Temp 36.8 Pulse 93 Resp 16 B/P (MAP) 146/101 (116) Pulse Ox 96 Capillary Refill : Less Than 3 Seconds Height, Weight, BMI Height: 5'0.00" Weight: 243lbs. 4.0oz. 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, 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 Norm as Tested, Other (tremor versus tardive dyskinesia) Skin: Normal Color, Warm/Dry, Ecchymosis Progress/Results/Core Measures Suspected Sepsis Recent Fever Within 48 Hours: No Infection Criteria Present: None New/Unexplained Altered Menta: No Sepsis Screen: No Definite Risk SIRS Temperature: Pulse: 93 Respiratory Rate: 16 Blood Pressure 146 /101 Mean: 116 Results/Orders Vital Signs/I&O 11/07/19 16:20 Temp 36.8 Pulse 93 Resp 16 B/P (MAP) 146/101 (116) Pulse Ox 96 Capillary Refill : Less Than 3 Seconds Blood Pressure Mean: 116 Progress Note : Progress Note Examination of the left foot suggested just a subtle bruise. Patient had dystonic movement suggestive of tardive dyskinesia. We suggested she discuss that with her Zyprexa prescriber. Departure Impression Primary Impression: Superficial bruising of foot Qualified Codes: S90.32XA - Contusion of left foot, initial encounter Additional Impression: Dyskinesia Disposition: 01 HOME, SELF-CARE Condition: Improved Departure-Patient Inst. Decision time for Depature: 16:54 Referrals: ARMANI VALERO MD (PCP/Family) Primary Care Physician Patient Instructions: Tardive Dyskinesia Add. Discharge Instructions: The discoloration on your foot is likely a superficial bruise. Return to care if you have worsening symptoms. Bruises by nature may spread some in the first few days so do not be surprised if the area of discoloration expands. Your twitching movements may be a side effect of your medications including Zyprexa and Depakote. Please discuss this with your prescriber. Return to care or call your doctor if you have any worsening symptoms. All discharge instructions reviewed with patient and/or family. Voiced understanding. Copy Copies To 1: ARMANI VALERO MD Copies To 2: SUSSY CARDENAS MD FACP FACC CCDS VINNIE ORELLANA MD Nov 07, 2019 16:57
--- OUTSIDE RECORDS SUMMARY | 2019-11-07 17:07 | XMS REPORT | Clinical Summary ---
Author Author [facility] Organization [facility] Address Unknown Phone Unavailable Care Team Providers Care Accounting/Finance Tutor Name Role Phone Jodie Littlejohn PCP Allergies Comments Active Allergy Reactions Severity Noted Date Diphenhydramine Hcl 09/27/2016 Got hives after dye injection for heart catheterization Dye 09/27/2016 [id number]-[id number] 09/27/2016 yxin Quinine 09/27/2016 Sulfa (Sulfonamide 09/27/2016 Antibiotics) Medications End Date Status Medication Sig Dispensed Refills Start Date Active levothyroxine (SYNTHROID, Take 88 mcg 0 LEVOTHROID) 88 MCG tablet by mouth daily. Active cholecalciferol, vitamin Take by 0 D3, (VITAMIN D3) 5,000 mouth. unit Tab Active aspirin 81 MG EC tablet Take 81 mg by 0 mouth daily. Active QUEtiapine (SEROQUEL) 100 Take 100 mg 0 MG tablet by mouth nightly. Active venlafaxine (EFFEXOR-XR) Take 75 mg by 0 75 mg ER 24 hr capsule mouth daily. Active atorvastatin (LIPITOR) 20 Take 20 mg by 0 MG tablet mouth daily. Active omeprazole (PRILOSEC) 20 Take 20 mg by 0 MG capsule mouth daily. Active mirtazapine (REMERON) 15 Take 15 mg by 0 MG tablet mouth nightly. Active LORazepam (ATIVAN) 0.5 MG Take 0.5 mg 0 tablet by mouth nightly as needed for anxiety. Active divalproex (DEPAKOTE DR) Take 125 mg 0 125 mg delayed-release by mouth 3 tablet (three) times a day. Active bimatoprost (LUMIGAN) 1 drop 0 0.01 % ophthalmic nightly. solution Active Problems Not on file Social History Date Tobacco Use Types Packs/Day Years Used Never Smoker Sex Assigned at Date Recorded Not on file Industry Job Start Date Occupation Not on file Not on file Not on file Travel End Travel History Travel Start No recent travel history available. Last Filed Vital Signs Reading Time Taken Comments Vital Sign 132/89 09/27/2016 9:03 PM CDT Blood Pressure 87 09/27/2016 9:03 PM CDT Pulse 36.6 C (97.9 F) 09/27/2016 6:24 PM CDT Temperature 16 09/27/2016 9:03 PM CDT Respiratory Rate 99% 09/27/2016 9:03 PM CDT Oxygen Saturation - - Inhaled Oxygen Concentration 96.1 kg (211 lb 14.4 oz) 09/27/2016 6:24 PM CDT Weight 152.4 cm (5') 09/27/2016 6:24 PM CDT Height 41.38 09/27/2016 6:24 PM CDT Body Mass Index Plan of Treatment Health Maintenance Due Date Last Done Comments Td # 1935 Zoster Vaccine# (1 of 2) 07/20/1987 Fall Risk Assessment # 2002 Osteoporosis Screening 2002 Influenza Vaccine (Season 03/16/2020 Ended) Results Not on filefrom Last 3 Months Insurance Type Payer Benefit Subscriber ID Effective Phone Address Plan / Dates Group Medicare MEDICARE MEDICARE xxxxxxxxxx 1994-P [place] PART A B [facility] OUT OF xxxxxxxxxxxx 7-P [facility] Advance Directives For more information, please contact: [phone] [employer] Employee Explanation Type Date Recorded Advance Directives and Living Will Power of Clinical Asst
--- OUTSIDE RECORDS SUMMARY | 2019-11-07 17:07 | XMS REPORT | Encounter Summary ---
Author Author [facility] Organization [facility] Address Unknown Phone Unavailable Care Team Providers Care Mineral Mixer Name Role Phone Jodie Littlejohn PCP Reason for Visit * Reason Comments Ankle Injury pt arrives by ambulance, tr ipped and fell when shoe got caught walking thru a parking lot. has swelling to L latera l ankle. also has small abrasion L elbow and nose, had epistaxis [employer] that has resolved. no LOC, no neck/back pain. slight DELEON. Encounter Details Care Team Description Date Type Department Kirill Garcia MD [address] [place] [address] [phone] Closed fracture of left calcaneus, unspe cified portion of calcaneus, initial encounter (Primary Dx) 09/27/2016 [place] [address] Social History Date Tobacco Use Types Packs/Day Years Used Never Smoker Sex Assigned at Date Recorded Not on file Industry Job Start Date Occupation Not on file Not on file Not on file Travel End Travel History Travel Start No recent travel history available. documented as of this encounter Last Filed Vital Signs Reading Time Taken [...] 09/27/2016 6:24 PM CDT Body Mass Index documented in this encounter Discharge Instructions * Instructions* Kirill Garcia MD - 09/27/2016 Foot Fracture You have a broken bone (fracture) in your foot. This will cause pain, swelling, and sometimes bruising. It will take about 4 to 6 weeks to heal. A foot fracture may be treated with a special shoe, splint, cast, or boot. Home care Follow these guidelines when caring for yourself at home: You may be given a splint, cast, shoe, or boot to keep the injured area from moving. Unless you were told otherwise, use crutches or a walker. Dont put we ight on the injured foot until your health care provider says you can do so. (Yo u can rent crutches and a walker at many pharmacies and surgical or orthopedic s upply stores.) Dont put weight on a splint, or it will break. Keep your leg elevated to reduce pain and swelling. When sleeping, put a pill ow under the injured leg. When sitting, support the injured leg so it is level w ith your waist. This is very important during the first 2 days (48 hours). Put an ice pack on the injured area. Do this for 20 minutes every 1 to 2 hour s the first day for pain relief. You can make an ice pack by wrapping a plastic bag of ice cubes in a thin towel. You can place the ice pack directly over the s plint or cast. Unless told otherwise, you can open the boot or shoe to apply the ice pack. Continue using the ice pack 3 to 4 times a day for the next 2 days. T hen use the ice pack as needed to ease pain and swelling. Keep the splint/cast/boot/shoe dry. When bathing, protect it with a large kehinde stic bag, rubber-banded at the top end. If a fiberglass splint or cast or boot g ets wet, you can dry it with a inspector hairspring truing. Unless told otherwise, you can take o ff the boot or shoe to bathe. You may use acetaminophen or ibuprofen to control pain, unless another pain m edicine was prescribed. If you have chronic liver or kidney disease, talk with y our health care provider before using these medicines. Also talk with your provi radha if youve had a stomach ulcer or GI bleeding. Dont put creams or objects under the cast if you have itching. Follow-up care Follow up with your health care provider within 1 week, or as advised. This is t o make sure the bone is healing the way it should. If you were given a splint, i t may be changed to a cast or boot at your follow-up visit. If X-rays were taken, a radiologist will look at them. You will be told of any n ew findings that may affect your care. When to seek medical advice Call your health care provider right away if any of these occur: The cast cracks The plaster cast or splint becomes wet or soft The fiberglass cast or splint stays wet for more than 24 hours Bad odor from the cast or wound fluid stains the cast Tightness or pain under the cast or splint gets worse Toes become swollen, cold, blue, numb, or tingly You cant move your toes Skin around cast becomes red Fever of 101F (38.3C) or higher, or as directed by your health care provi radha [id number] [employer]. [address] [place] [address] 7. All rights reserved. This information is not intended as a substitute for pro fessional medical care. Always follow your healthcare professional's instruction s. documented in this encounter Medications at Time of Discharge Start Date End Date Medication Sig Dispensed Refills aspirin 81 MG EC tablet Take 81 mg by 0 mouth daily. atorvastatin (LIPITOR) 20 Take 20 mg by 0 MG tablet mouth daily. bimatoprost (LUMIGAN) 1 drop 0 0.01 % ophthalmic nightly. solution cholecalciferol, vitamin Take by 0 D3, (VITAMIN D3) 5,000 mouth. unit Tab divalproex (DEPAKOTE DR) Take 125 mg 0 125 mg delayed-release by mouth 3 tablet (three) times a day. levothyroxine (SYNTHROID, Take 88 mcg 0 LEVOTHROID) 88 MCG tablet by mouth daily. LORazepam (ATIVAN) 0.5 MG Take 0.5 mg 0 tablet by mouth nightly as needed for anxiety. mirtazapine (REMERON) 15 Take 15 mg by 0 MG tablet mouth nightly. omeprazole (PRILOSEC) 20 Take 20 mg by 0 MG capsule mouth daily. QUEtiapine (SEROQUEL) 100 Take 100 mg 0 MG tablet by mouth nightly. venlafaxine (EFFEXOR-XR) Take 75 mg by 0 75 mg ER 24 hr capsule mouth daily. 09/27/2016 10/27/2016 oxyCODONE-acetaminophen Take 1-2 25 tablet 0 (PERCOCET) 5-325 mg per tablets by tablet mouth every 6 (six) hours as needed for pain. documented as of this encounter ED Notes * Kirill Garcia MD - 09/27/2016 7:08 PM CDT 09/27/2016 [facility] History Chief Complaint Patient presents with Ankle Injury pt arrives by ambulance, tripped and fell when shoe got caught walking thru a parking lot. has swelling to L lateral ankle. also has small abrasion L elbow an d nose, had epistaxis [employer] that has resolved. no LOC, no neck/back pain. slight H A. HPI 81-year-old female presents with ankle pain, patient states she was walking down a few stairs, fell, states she's got pain in her left lateral ankle, has not be en able to bear weight, did not hit her head, denies any neck pain, complains of a mild headache, does not take any but that her medicines, did scrape her nose, but states she did not hit her head, does have diffuse swelling of her ankle, s tates her foot also hurts somewhat when she moves a certain way, states she's deleon d previous foot injuries in the past, denies any bowel pain, chest pain, neck pa in or paresthesias. 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 Social History Substance Use Topics Smoking status: Never Smoker Smokeless tobacco: None Alcohol use None Review of Systems Constitutional: Negative. HENT: Negative. Eyes: Negative. Respiratory: Negative. Cardiovascular: Negative. Gastrointestinal: Negative. Endocrine: Negative. Genitourinary: Negative. Musculoskeletal: Negative. Skin: Negative. Allergic/Immunologic: Negative. Neurological: Negative. Hematological: Negative. Psychiatric/Behavioral: Negative. All other systems reviewed and are negative. Physical Exam Visit Vitals BP (!) 133/106 (BP Location: Left arm) Pulse 88 Temp 36.6 C (97.9 F) (Oral) Resp 16 Ht 1.524 m (5') Wt 96.1 kg (211 lb 14.4 oz) SpO2 99% BMI 41.38 kg/m2 Physical Exam Constitutional: She is oriented to person, place, and time. She appears well-dev eloped and well-nourished. No distress. HENT: Head: Normocephalic and atraumatic. Nose: Nose normal. Mouth/Throat: Oropharynx is clear and moist. Mild abrasion to nose Eyes: Conjunctivae and EOM are normal. Pupils are equal, round, and reactive to light. Right eye exhibits no discharge. No scleral icterus. Neck: Normal range of motion. Neck supple. No JVD present. No tracheal deviation present. Cardiovascular: Normal rate, regular rhythm and normal heart sounds. Exam revea ls no friction rub. No murmur heard. Pulmonary/Chest: Effort normal and breath sounds normal. No stridor. No respirat ory distress. She has no wheezes. She has no rales. She exhibits no tenderness. Abdominal: Soft. Bowel sounds are normal. She exhibits no distension. There is n o tenderness. There is no rebound and no guarding. Musculoskeletal: Normal range of motion. She exhibits edema and tenderness. ecchymosis Neurological: She is alert and oriented to person, place, and time. No cranial n erve deficit. She exhibits normal muscle tone. Coordination normal. Skin: Skin is warm and dry. No rash noted. She is not diaphoretic. No erythema. No pallor. Psychiatric: She has a normal mood and affect. Her behavior is normal. Judgment and thought content normal. Nursing note and vitals reviewed. ED Course Procedures MDM The labs from this visit are No results found for this or any previous visit (from the past 24 hour(s)). The radiology results are XR Foot min 3 views left Final Result Impression: Comminuted fracture of the calcaneus, as previously described on ankle films. The distal foot appears intact. Mild distal degenerative change. No other fracture or dislocation seen. XR Ankle min 3 views left Final Result Comminuted depressed [place] [address] [place] [address] [facility] [address] Call Follow up in the orthopedic clinic, DO NOT BEAR WEIGHT D/w ortho, will follow up with Dr. Chambers, bulky splint non weight bearing. ED Course ED Clinical Impression 1. Closed fracture of left calcaneus, unspecified portion of calcaneus, initial encounter Kirill Garcia MD 09/27/162040 documented in this encounter Plan of Treatment Not on filedocumented as of this encounter Procedures Comments Procedure Name Priority Date/Time Associated Diag nosis XR FOOT MIN 3 VIEWS LEFT STAT 09/27/2016 7:29 PM CDT XR ANKLE MIN 3 VIEWS LEFT STAT 09/27/2016 6:47 PM CDT documented in this encounter Results * XR Foot min 3 views left (09/27/2016 7:29 PM CDT) Specimen Impressions Performed At Impression: Comminuted fracture of the calcaneus, a s previously [facility] described on ankle films. The distal fo ot appears intact. Mild distal degenerative change. No other fracture or dislocation seen. Narrative Performed At Patient: LINDA RIVERA [place] Sex#: F # [id number] Marv#: [id number] Location: [facility] Procedure Requested: [id number] XR FOOT MIN 3 VIEWS LEFT Reason for Exam: foot pain Exam Ordered: 09/27/2016 19 08 Exam Date/Time: 09/27/2016 192 9 Begin exam date/time: 09/27/2016 192 0 Reading Site: [facility] DATE: 09/27/2016 7:59 PM EXAM: XR FOOT MIN 3 VIEWS LEFT INDICATION: foot pain Procedure Note Interface, Rad Results In - 09/27/2016 8:03 PM CDT Patient: LINDA RIVERA Sex#: F # [id number] Marv#: [id number] Location: [facility] Procedure Requested: [id number] XR FOOT MIN 3 VIEWS LEFT Reason for Exam: foot pain Exam Ordered: 09/27/2016 1908 Exam Date/Time: 09/27/2016 1929 Begin exam date/time: 09/27/2016 1920 Reading Site: [facility] DATE: 09/27/2016 7:59 PM EXAM: XR FOOT MIN 3 VIEWS LEFT INDICATION: foot pain IMPRESSION Impression: Comminuted fracture of the calcaneus, as previously described on ankle films. The distal foot appears intact. Mild distal degenerative change. No other fracture or dislocation seen. Performing Organization Address City/State/Zipcode Ph one Number [place] * XR Ankle min 3 views left (09/27/2016 6:47 PM CDT) Specimen Impressions Performed At Comminuted depressed fracture of the calcaneus. LINH TAY Narrative Performed At Patient: LINDA RIVERA Sex#: F # [id number] Marv#: [id number] Location: [facility] Procedure Requested: [id number] XR ANKLE MIN 3 VIEWS LEFT Reason for Exam: trauma, swelling/saige n L lateral Exam Ordered: 09/27/2016 18 38 Exam Date/Time: 09/27/2016 184 7 Begin exam date/time: 09/27/2016 184 4 Reading Site: [facility] DATE: 09/27/2016 7:53 PM EXAM: XR ANKLE MIN 3 VIEWS LEFT INDICATION: trauma, swelling/pain L l ateral FINDINGS: Comminuted fracture of the calcaneus with depression of Boehler's angle. Associated soft tissue swelling in the ankle and hindfoot. The talus appears to be intac t. Ankle joint is normally oriented. No other definite fracture se en. Degenerative change. Procedure Note Interface, Rad Results In - 09/27/2016 7:57 PM CDT Patient: LINDA RIVERA Sex#: F # [id number] Marv#: [id number] Location: [facility] Procedure Requested: [id number] XR ANKLE MIN 3 VIEWS LEFT Reason for Exam: trauma, swelling/pain L lateral Exam Ordered: 09/27/2016 1838 Exam Date/Time: 09/27/2016 1847 Begin exam date/time: 09/27/2016 1844 Reading Site: [facility] DATE: 09/27/2016 7:53 PM EXAM: XR ANKLE MIN 3 VIEWS LEFT INDICATION: trauma, swelling/pain L lateral FINDINGS: Comminuted fracture of the calcaneus with depression of Boehler's angle. Associated soft tissue swelling in the ankle and hindfoot. The talus appears to be intact. Ankle joint is normally oriented. No other definite fracture seen. Degenerative change. IMPRESSION Comminuted depressed fracture of the calcaneus. Performing Organization Address City/State/[facility] Ph one Number TERRYTIFFANIE documented in this encounter Visit Diagnoses Diagnosis Closed fracture of left calcaneus, unsp ecified portion of calcaneus, initial encounter documented in this encounter Administered Medications Action Date Dose Rate Site Medication Order MAR Action 09/27/2016 8:31 PM CDT 0.5 mg LORazepam (ATIVAN) tablet 0.5 mg Given 0.5 mg, Oral, Once, 09/27/16 at 2020 , For 1 dose documented in this encounter
--- OUTSIDE RECORDS SUMMARY | 2019-11-07 17:11 | XMS REPORT ---
Author Author [employer]. systems architect [employer] [facility] Address [address] [address] Care Team Providers Care Military Pay Technician Name Role Phone MAUREENTJY Unavailable Unavailable MAUREEN, ANDERSON Unavailable MAUREEN, ANDERSON Unavailable MAUREEN, ANDERSON Unavailable MENA LITTLEJOHN Unavailable MENA LITTLEJOHN A Unavailable MENA LITTLEJOHN A Unavailable ARMANI ARTIS Unavailable zzANDERSON ANDERSON Unavailable zzANDERSON, ANDERSON Unavailable zzANDERSON, ANDERSON Unavailable zzANDERSON, ANDERSON Unavailable zzANDERSON, ANDERSON Unavailable DAMIAN REDDYWIN Unavailable DAMIAN REDDYWIN Unavailable MAUREEN WERO Unavailable CONSTANCE, MARLEEN Unavailable CONSTANCE, MARLEEN Unavailable DAMIAN REDDYWIN Unavailable CONSTANCE, MARLEEN Unavailable MAUREEN, WERO Unavailable MAUREEN, WERO Unavailable CONSTANCE, MARLEEN Unavailable DAMIAN REDDYWIN Unavailable CONSTANCE, MARLEEN Unavailable DAMIAN REDDYWIN Unavailable DAMIAN REDDYWIN Unavailable CONSTANCE, MARLEEN Unavailable [facility] Unavailable Unavailable [facility] Unavailable Unavailable SAIGE LEDEZMA DO Unavailable Unavailable JAIR ZHANG LABORER MINE Unavailable Unavailable EVERTON ISAAC DO Unavailable Unavailable BALDEMAR RINCON FAC, SUSSY FACP CCDS Unavailable Unavailmerissa DE OLIVEIRA MD, SAL Avila Unavailable Unavailable JOSHUA RINCON, ALISHA Montoya Unavailable Unavailable MICHELLE GARCIA LABORER MINE Unavailable Unavailable BEATRIS DOLAN BEAM MACHINE OPERATOR Unavailable Unavailable DALI RINCON, FREDDIE Rocha Unavailable Unavailable TAYLOR ANDERSON BEAM MACHINE OPERATOR Unavailable Unavailable MENA LITTLEJOHN Unavailable Unavailable Unavailable ARMANI VALERO PCP [facility] PP Unavailable [facility] CCM Unavailable BEATRIS DOLAN BEAM MACHINE OPERATOR Unavailable Unavailable EVERTON ISAAC DO Unavailable Unavailable ANNETTA RINCON, MENA Rocha Unavailable Unavailable MENA LITTLEJOHN MD Unavailable Unavailable RUTH MAURICE DO Unavailable Unavailable ARMANI ARTIS JR Unavailable Unavailable ARMANI ARTIS Unavailable Unavailable ARMANI ARTIS Unavailable Unavailable ARMANI ARTIS Unavailable Unavailable ARMANI VALERO MD Unavailable Unavailable ARMANI ARTIS Unavailable Unavailable ARMANI VALERO PCP PATSY RALPH BEAM MACHINE OPERATOR Unavailable Unavailable TA THORNTON Unavailable Unavailable Unavailable Unavailable Unavailable Unavailable Unavailable Unavailable Unavailable Unavailable Unavailable Unavailable Unavailable Unavailable Allergies Normalized Allergy Reported Date of Reaction(s) Care Provider Facility Allergy Type classification allergen Allergy Onset Drug Allergy Unclassified IV DYE, IODINE 04-06-2011 - no informa tion Mena Littlejohn (1 source.) CONTAINING 85532 VICTORIA RINCON (13861) (Work Phone: ) Drug Allergy Unclassified QUINIDINE/STEPHANIE 04-06-2011 - no informa tion Mena Littlejohn (1 source.) INE 74444 VICTORIA RINCON (25838) (Work Phone: ) Substance Adhesive Tape Adhesive Tape 05-18-2011 - no informatio n Mena Littlejohn Allergy (1 42787 VICTORIA RINCON source.) (71505) (Work Phone: ) Drug Allergy Bacitracin / bacitracin / OTHER, SAIGE LALITHA Not Available (19 sources.) Neomycin / neomycin / MODERATE (15760) Polymyxin B polymyxin b Food Allergy Chocolate Chocolate 05-18-2011 - frida Littlejohn (1 source.) 76782 , VICTORIA (59322) (Work Phone: ) DA (22 Unclassified polymyxin B 06-25-2014 - no information SAIGE LEDEZMA , DO Not Available sources.) (15112) Medications Medication Ingredient Drug Dose Dates Status Sig Sig Care Class(es) (Normalized) (Original) Provid er no Acetaminoph no 04-30-20 no no no no information en information 17 - informat information infor mation name (2 05-10-20 ion sources.) 17 04-14-2017 no no no no name - information inform informat 04-24-2017 ation ion 03-31-2017 no no no no name - information inform informat 04-10-2017 ation ion no Alphagan no 05-01-20 no no Alphagan no information (brimonidin information - informat informati on (brimonidine name (2 e) opht 05-31-19 ion ) opht drops sources.) drops 18 0.1 0.1 04-01-2017 no no Alphagan no name - information inform (brimoni 04-30-2017 ation dine) opht drops 0.1 0.1 no ALUM/MAG/SI no 03-31-20 no no no no information METH 30CC information - informat information in formation name (1 source.) LIQ 04-30-20 ion (MYLANTA 17 PLUS) no Amiloride no 12-25-19 Complete no Amiloride no information Hcl/Hctz information 10 d information Hcl/H ctz name (1 source.) Discontinued NOT APPLICABLE December 24, 2009 no ASA 81MG no 81 mg 05-01-20 no no ASA 81MG n o information ENTERIC information - informat information ENTE BERNARD name (2 COATED TAB 05-30-19 ion COATED TAB sources.) 81 MG (BABY 18 81 MG (BABY ASPIRIN EC) ASPIRIN EC) 81 81 04-01-2017 no no no no name - information inform informat 04-30-2017 ation ion 09-28-2016 no no no no name - information inform informat 10-04-2016 ation ion no BISACODYL no 10 mg 04-01-20 no no no no information SUPPOS SUP information 17 - informat informatio n information name (1 source.) 10 MG 20 ion (DULCOLAX 17 SUPPOS) 0.5 ml diphtheria Inactivated 10-24-19 Complete no no A nna diphtheria toxoid Corynebacte 15 - d information informat ion Gilmor toxoid vaccine, rium 10-24-19 e vaccine, inactivated Diphtheriae 15 Other inactivated / tetanus Vaccine, Phone: 4 unt/ml / toxoid Inactivated 1(620) tetanus vaccine, Clostridium 232-55 toxoid inactivated Tetani 81 vaccine, Vaccine inactivated 10 unt/ml injection (2 sources.) no DIVALPROEX no 125 mg 10-01-19 no no no n o information ER TAB 125 information 17 - informat informatio n information name (1 source.) MG 20 ion (DEPAKOTE 17 ER) no DIVALPROEX no 125 mg 09-29-19 no no no n o information ER TAB 125 information 17 - informat informatio n information name (1 source.) MG 10-04-20 ion (DEPAKOTE 17 ER) no DIVALPROEX no 125 mg 04-18-20 no no no n o information SPRINKLE information 17 - informat information inf ormation name (2 CAP 125 MG 05-18-19 ion sources.) (DEPAKOTE 18 SPRINKLE) 125 mg 03-31-2017 no no no no name - information inform informat 04-30-2017 ation ion 125 mg 03-31-2017 no no no no name - information inform informat 04-29-2017 ation ion no influenza no 03-10-20 Complete no no Mena information virus information 17 d information informa tion [place] (1 source.) vaccine on Other Phone: no KETOROLAC no 09-29-19 no no no no information VIAL INJ 30 information 17 - informat informati on information name (1 source.) MG/CC 09-29-19 ion (TORADOL 17 VIAL) 09-28-2016 no no no no name - information inform informat 09-28-2016 ation ion no Lactulose Osmotic 04-30-20 no no no no information Translation Laxative 17 - informat information inf ormation name (5 s: [ 05-30-19 ion sources.) LACTULOSE 18 SYRUP LIQ 20 GM/30CC (CHRONULAC SYRUP)] 03-31-2017 no no no no name - information inform informat 04-30-2017 ation ion 03640 mg/mL no no Lactulos no name information inform e Active ation 20 ORAL Twice A Day no Loperamide Opioid 2 mg 03-31-20 no no no n o information Agonist 17 - informat information information name (1 source.) 04-30-20 ion 17 no Lumigan no 04-30-20 no no Lumigan no information (bimatopros information 17 - informat informati on (bimatoprost name (2 t) opht 05-29-19 ion ) opht drops sources.) drops 18 0.01 0.01 03-31-2017 no no Lumigan no name - information inform (bimatop 04-29-2017 ation ricky) opht drops 0.01 0.01 no LUMIGAN no 0.01 % 09-29-19 no no no no information 0.01% EYE information 17 - informat information in formation name (1 source.) DROPS 10-05-19 ion (bimatopros 17 t) opht drops no MILK OF no 03-31-20 no no no no information MAGNESIA information 17 - informat information inf ormation name (1 source.) LIQ 04-07-20 ion 17 no OLANZAPINE no 04-03-20 no no no no information IM VIAL INJ information 17 - informat informati on information name (1 source.) 10 MG/VIAL 04-03-20 ion (ZYPREXA IM 17 VIAL) no OMEPRAZOLE no 20 mg 09-29-19 no no no n o information DR 20 MG information 17 - informat information inf ormation name (1 source.) CAPSULE 10-05-19 ion (omeprazole 17 ) oral capsule,del ayed release(DR/ EC) no oxyCODONE Opioid 09-29-19 no no no no information Agonist 17 - informat information information name (1 source.) 10-06-19 ion 17 no Polyethylen no 17 g 03-31-20 no no no no information e Glycols information 17 - informat information in formation name (1 source.) 04-30-20 ion 17 no PROMETHAZIN no 03-31-20 no no no no information E W/ information 17 - informat information infor mation name (1 source.) CODEINE LIQ 04-30-20 ion (PHENERGAN) 17 no Simvastatin HMG-CoA 40 mg 04-30-20 no no no no information Reductase 17 - informat information informatio n name (2 Inhibitor 05-29-19 ion sources.) 18 40 mg 03-31-2017 no no no no name - information inform informat 04-29-2017 ation ion no traZODone Serotonin 50 mg 03-31-20 no no no no information Reuptake 17 - informat information information name (1 source.) Inhibitor 04-30-20 ion 17 no Vistaril IM no 04-01-20 no no no no information (hydroxyzin information 17 - informat informati on information name (1 source.) e HCl) IM 04-01-20 ion syringe 17 no Vitamin D-3 no 5000 09-29-19 no no no no information 5,000 units information [IU] 17 - informat inform ation information name (1 source.) oral 10-28-19 ion capsule 17 NEGATED no no 5 mg 05-09-20 no no no no no information information 17 - informat information infor mation name information 05-09-20 ion (1 source.) 17 NEGATED no no 05-01-20 no no no no no information information 17 - informat information infor mation name information 05-01-20 ion (1 source.) 17 NEGATED no no 04-30-20 no no no no no information information 17 - informat information infor mation name information 05-07-20 ion (1 source.) 17 NEGATED no no 125 mg 04-18-20 no no no no no information information 17 - informat information infor mation name information 05-18-19 ion (1 source.) 18 NEGATED no no 04-15-20 no no no no no information information 17 - informat information infor mation name information 04-21-20 ion (1 source.) 17 NEGATED no no 1 mg 04-14-20 no no no no no information information 17 - informat information infor mation name information 12-29-20 ion (1 source.) 17 Problems Active Problems Problem Normalized Date Last Normalized Normalized Provider Fa cility Classification Problem(s) Recorded Problem Problem Sta tus Duration Congestive Acute Chronic Active no name no informati on heart failure; diastolic nonhypertensiv (congestive) e (5 sources.) heart failure Other upper Allergic Chronic Active Mena Littlejohn respiratory rhinitis 50733 VICTORIA RINCON disease (1 Translations: (32053) (Work source.) [ ALLERGIC Phone: RHINITIS] ) Other upper Allergic Chronic Active Mena Littlejohn respiratory rhinitis due 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 (44137) s and other disease of heart disease [place] (20 sources.) coronary artery without angina pectoris Translations: [ CORON ATHEROSCLER NOS TYPE VESSEL, NATIV, CORONARY ATHEROSCLEROSI S OF [place] CORON] NEGATED Benign Episodic Active no name [facility] Via no neoplasm of [facility] information (3 right breast Hospital - sources.) [place] (35776) Other and Cardiomegaly Chronic Active EVERTON ISAAC , [facility] Via ill-defined DO [place] heart disease Hospital - (3 sources.) [place] (52004) NEGATED Chronic Chronic Active BEATRIS Not Available no obstructive MAGDALENO (10048) information (3 pulmonary sources.) disease, unspecified 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 BEATRIS [facility] Vi a failure; supplemental MAGDALENO [place] insufficiency; oxygen Hospital - arrest (adult) [place] [facility] (20 sources.) (47901) Diverticulosis Diverticulosis Chronic Active [facility] Via and of intestine, ARACELI GARDINER diverticulitis part Hospital - (5 sources.) unspecified, [facility] without (11487) perforation or abscess without bleeding Other Dysphagia, Episodic Active FREDDIE REUSSNER , Not Av ailable gastrointestin oropharyngeal (88181) al disorders phase (3 sources.) Other lower Dyspnea, Episodic Active SAL Not Availab le respiratory unspecified MD YENNIFER (92579) disease (7 sources.) Genitourinary Dysuria Episodic Active Mena Annetta Sotelo stephan Annetta symptoms and Translations: 40579 VICTORIA RINCON ill-defined [ DYSURIA, (14161) (Work conditions (22 Frequency of Phone: sources.) micturition, Frequency of ) micturition, Dysuria, Dysuria, Dysuria, URGENCY OF URINATION, FREQUENCY OF MICTURITION, Frequency of micturition, Dysuria, Dysuria, Dysuria, Dysuria, Frequency of micturition, Frequency of micturition, HEMATURIA, UNSPECIFIED, FREQUENCY OF MICTURITION] Fracture of Fracture of Episodic Active SAIGE DOTY Not Available lower limb (24 calcaneus, (34667) sources.) closed Translations: [ Unspecified fracture of left calcaneus, initial encounter for closed fracture, Unspecified fracture of left calcaneus, initial encounter for closed fracture, UNSP FRACTURE OF LEFT CALCANEUS, SUBS FO, UNSP FRACTURE OF LEFT CALCANEUS, INIT FOR CLOS FX, Unspecified fracture of left calcaneus, initial encounter for closed fracture, Unspecified fracture of left calcaneus, initial encounter for closed fracture, Unspecified fracture of left calcaneus, initial encounter for closed fracture] Esophageal Gastro-esophag Chronic Active ALI BALDEMAR , Not Available disorders ([address] [facility] (40432) sources.) disease without esophagitis Translations: [ Gastroesophage al reflux disease, Gastro-esophag eal reflux disease without esophagitis, Gastro-esophag eal reflux disease without esophagitis, Gastro-esophag eal reflux disease without esophagitis, GASTRO-ESOPHAG EAL REFLUX DISEASE WITH ESOPHAGITIS, ESOPHAGEAL REFLUX, GASTRO-ESOPHAG EAL REFLUX DISEASE WITHOUT ESOPHAGITIS, Gastro-esophag eal reflux disease without esophagitis, Gastro-esophag eal reflux disease without esophagitis, Gastro-esophag eal reflux disease without esophagitis] Headache, Headache Episodic Active MICHELLE Not Available including Translations: MARIAM (66564) migraine (11 [ Headache, sources.) Headache, Headache, HEADACHE] Disorders of Hyperlipidemia Chronic Active JAIR BAIMA Not Available lipid , unspecified (87631) metabolism (22 Translations: sources.) [ Hyperlipidemia , HYPERLIPIDEMIA , HYPERLIPIDEMIA , HYPERLIPIDEMIA , Mixed hyperlipidemia , Mixed hyperlipidemia , Mixed hyperlipidemia , HYPERLIPIDEMIA , UNSPECIFIED, HYPERLIPIDEMIA , HYPERLIPIDEMIA , Mixed hyperlipidemia , Mixed hyperlipidemia , Mixed hyperlipidemia ] Residual Hypersomnia, Chronic Active EVERTON MARLIN , [facility] Via codes; unspecified DO [place] unclassified Hospital - (2 sources.) [facility] (56373) Essential Hypertensive Chronic Active Mena Leon hypertension disorder 77954 , [facility] (20 sources.) Translations: (05959) (Work [ Essential Phone: (primary) hypertension, ) Hypertension, Essential (primary) hypertension, Essential (primary) hypertension, ESSENTIAL HYPERTENSION, ESSENTIAL HYPERTENSION, ESSENTIAL HYPERTENSION, ESSENTIAL HYPERTENSION, Essential (primary) hypertension, ESSENTIAL HYPERTENSION, Essential (primary) hypertension, Essential (primary) hypertension, ESSENTIAL HYPERTENSION, Essential (primary) hypertension] Thyroid Hypothyroidism Chronic Active Mena Littlejohn disorders (20 Translations: 03953 , LLC sources.) [ (24852) (Work HYPOTHYROIDISM Phone: , Atrophy of thyroid ) (acquired), Atrophy of thyroid (acquired), HYPOTHYROIDISM , Hypothryroidis m, Hypothyroidism , unspecified, Hypothyroidism , unspecified, Hypothyroidism , unspecified, HYPOTHYROIDISM , UNSPECIFIED, Hypothyroidism , unspecified, HYPOTHYROIDISM , HYPOTHYROIDISM , Hypothyroidism , unspecified, Hypothyroidism , unspecified, NONTOX UNINODULAR GOITER] Other lower Hypoxemia Episodic Active BEATRIS [facility] Via respiratory MAGDALENO [place] disease (21 Hospital - sources.) [facility] [place] (51275) Residual Idiopathic Chronic Active EVETRON ISAAC [facility] Vi a codes; sleep related DO [place] unclassified nonobstructive Hospital - (3 sources.) alveolar [facility]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 SAL Not Availabl e aftercare (7 (current) use YENNIFER , MD (01688) sources.) of aspirin Heart valve Mitral valve Chronic Active ALI BALDEMAR , Not Available disorders (4 disorders MD SINCLAIR () sources.) Translations: [ TRICUSPID VALVE DISEASE] Other Obesity, Chronic Active ALI BALDEMAR , Not Availa ble nutritional; unspecified MD SINCLAIR () endocrine; and Translations: metabolic [ Other disorders (5 obesity due to sources.) excess calories, Other obesity due to excess calories] Other Obesity, Chronic Active no name no informatio n nutritional; unspecified endocrine; and metabolic disorders (5 sources.) Residual Obstructive Chronic Active BEATRIS Not Availa ble codes; sleep apnea MAGDALENO (27702) unclassified (adult) (8 sources.) (pediatric) Translations: [ PERIODIC LIMB MOVEMENT DISORDER] Residual Obstructive Chronic Active EVERTON ISAAC , Not A vailable codes; sleep apnea DO (38095) unclassified (adult)(pediat (6 sources.) bernard) Translations: [ 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 or Occlusion and Chronic Active ALI BALDEMAR , No t Available 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 (1 without source.) mention of cerebral infarction Nonspecific Other chest Episodic Active ALI BALDEMAR , Not A vailable chest pain (5 pain MD SINCLAIR (80887) sources.) Translations: [ CHEST PAIN NOS] Other lower Other Episodic Active BEATRIS [facility] Via respiratory disorders of MAGDALENO Amesi disease (20 lung Hospital - sources.) [place] () Other lower Other forms of Episodic Active JAIR BAIMA N ot Available respiratory dyspnea (24502) disease (20 sources.) Other lower Other Episodic Active ALI BALDEMAR , Not Avai lable respiratory respiratory MD SINCLAIR (30460) disease (6 abnormalities sources.) Pulmonary Other Chronic Active ALI BALDEMAR , Not Availa ble heart disease secondary MD SINCLAIR (81813) (7 sources.) pulmonary hypertension Translations: [ CHR PULMON HEART DIS NEC] Other Other Chronic Active no name no informatio n circulatory specified disease (5 disorders of sources.) arteries and arterioles NEGATED Other Episodic Active no name no informatio n no specified soft information (6 tissue sources.) disorders Other Pain in left Episodic Active PATSY LOREE [facility] Via connective leg [place] tissue disease Hospital - (6 sources.) [facility] (40451) Residual Periodic limb Chronic Active EVERTON ISAAC , Not Available codes; movement DO (46752) unclassified disorder (1 source.) Residual Periodic limb Chronic Active BEATRIS Not Avai lable codes; movement MAGDALENO (84834) unclassified disorder (1 source.) Peripheral and Peripheral Chronic Active ALI BALDEMAR , Not Available visceral vascular 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 (43394) (8 sources.) dysfunction Translations: [ BRADYCARDIA, UNSPECIFIED] Unclassified Sleep apnea, no information Active BEATRIS N ot Available (16 sources.) unspecified MAGDALENO (30405) Translations: [ BODY MASS INDEX (BMI) 40.0-44.9, ADULT, OBSTRUCTIVE SLEEP APNEA (ADULT) (PEDIATR, PERIODIC LIMB MOVEMENT DISORDER, HYPERSOMNIA, UNSPECIFIED, IDIO SLEEP RELATED NONOBSTRUCTIVE ALVEOL] NEGATED Snoring Episodic Active BEATRIS Not Available no MAGDALENO (92063) information (3 sources.) Other Special Episodic Active ALISHA Not Available screening for screening for JOSHUA , (39039) suspected malignant MD conditions neoplasms of (not mental colon disorders or Translations: infectious [ Encounter disease) (22 for screening sources.) mammogram for malignant neoplasm of breast, Encounter for screening mammogram for malignant neoplasm of breast, Encounter for screening fecal occult blood testing, ENCNTR SCREEN MAMMOGRAM FOR MALIGNANT NE, OTH ABN AND INCONCLUSIVE FINDINGS ON DX , ABNORMAL RESULTS OF PULMONARY FUNCTION S, Encounter for screening fecal occult blood testing] Other Unspecified Chronic Active ALI BALDEMAR , Not Prema ilable circulatory disorders of [facility] (32301) disease (3 arteries and sources.) arterioles Past or Other Problems Problem Normalized Date Last Normalized Normalized Provider Fa wendyty Classification Problem(s) Recorded Problem Problem Sta tus Duration Other nervous Abnormality of Episodic Completed Mena Littlejohn system gait 89124 VICTORIA RINCON disorders (2 Translations: () (Work sources.) [ Unsteadiness Phone: on feet, Unsteadiness ) on feet] Unclassified ABRASION HAND no information no information Mena Littlejohn (1 source.) Translations: 73722 VICTORIA RINCON [ ABRASION () (Work HAND] Phone: ) Unclassified Acute no information no information Mena Littlejohn (1 source.) recurrent 85096 VICTORIA RINCON maxillary () (Work sinusitis Phone: Translations: [ Acute ) recurrent maxillary sinusitis] Unclassified ACUTE URI no information no information Mena Littlejohn (3 sources.) Translations: 03759 VICTORIA RINCON [ ACUTE URI] () (Work Phone: ) Unclassified Atrophy of no information no information Mena Littlejohn (2 sources.) thyroid 96435 VICTORIA RINCON (acquired) () (Work Translations: Phone: [ Atrophy of thyroid ) (acquired)] Unclassified BIPOLAR no information no information Mena Littlejohn (3 sources.) AFFECTIVE, 32749 VICTORIA RINCON MANIC, UNSPEC () (Work Translations: Phone: [ BIPOLAR AFFECTIVE, ) MANIC, UNSPEC] Unclassified Breast pain in no information no information Mena Littlejohn (1 source.) female 31386 VICTORIA RINCON Translations: () (Work [ Breast pain Phone: in female] ) Fracture of Closed Episodic Completed RUTH Not Availab le upper limb (1 fracture of KAYLENE , DO (58047) source.) greater tuberosity of humerus Other lower Cough Episodic Completed Mena Littlejohn respiratory Translations: 59220 VICTORIA RINCON disease (7 [ Cough, () (Work sources.) COUGH] Phone: ) Abdominal Diaphragmatic Episodic Completed FREDDIE RERADHA , Not Available hernia (9 hernia without MD (11694) sources.) mention of obstruction or gangrene Translations: [ DIAPHRAGMATIC HERNIA WITHOUT OBSTRUCTION] Unclassified DIETARY no information no information Mena Littlejohn (1 source.) SURVEIL/COUNSE 97147 VICTORIA RINCON L () (Work Translations: Phone: [ DIETARY SURVEIL/COUNSE ) L] External Dog bite no information no information Mena Littlejohn Injury - Translations: 04267 VICTORIA RINCON Natural / [ Dog bite] () (Work Environment (1 Phone: source.) ) Fluid and Electrolyte Episodic Completed ALI BALDEMAR , Not Prema ilable electrolyte and fluid [facility] (16650) disorders (1 disorders not source.) elsewhere classified Unclassified Elevated no information no information Mena Littlejohn (1 source.) fasting 92478 VICTORIA RINCON glucose () (Work Translations: Phone: [ Elevated fasting ) glucose] Esophageal Esophageal no information no information Mena Littlejohn disorders (2 disorders 19557 VICTORIA RINCON sources.) Translations: (60588) (Work [ Phone: Gastro-esophag eal reflux ) disease without esophagitis] External cause Fall from no information no information RUTH Not Available codes: other KAYLENE , DO (78800) Overexertion slipping, (1 source.) tripping, or stumbling Unclassified Fever, no information no information Mena Littlejohn (1 source.) unspecified 86281 VICTORIA RINCON Translations: (97388) (Work [ Fever, Phone: unspecified] ) External Fever, Episodic Completed Mena aparicio Injury - unspecified 49676 VICTORIA RINCON Adverse Translations: (03939) (Work effects of [ Fever, Phone: medical drugs unspecified, (2 sources.) Fever, ) unspecified] Other Flatulence Episodic Completed Mena Littleojhn gastrointestin Translations: 90861 , LLC al disorders [ Flatulence] (69445) (Work (1 source.) Phone: ) Unclassified Frequency of no information no information Mena Littlejohn (1 source.) micturition 46119 , LLC Translations: (55752) (Work [ Frequency of Phone: micturition] ) External cause Home accidents no information no information LAW RENCE Not Available codes: Place KAYLENE , DO (38767) of occurrence (1 source.) Residual Hypersomnia, no information no information BEATRIS Not Available codes; unspecified MAGDALENO (68724) unclassified (3 sources.) Unclassified Left ankle no information no information Mena Littlejohn (1 source.) pain 36353 , LLC Translations: (66871) (Work [ Left ankle Phone: pain] ) Other Long-term Episodic Completed ALI BALDEMAR , Not Avail able aftercare (3 (current) use [facility] (95473) sources.) of other medications Translations: [ Other half-way (current) drug therapy, Other half-way (current) drug therapy] Other Low blood Episodic Completed [place]ena [place] circulatory pressure 87234 VICTORIA RINCON disease (1 Translations: (14885) (Work source.) [ Hypotension] Phone: ) Other injuries Muscle strain Episodic Completed Mena Littlejohn and conditions Translations: 02259 MD LLC due to [ Muscle (07287) (Work external strain] Phone: causes (1 source.) ) Unclassified Osteoarthrosis no information no information Mena Littlejohn (1 source.) , hand 56274 MD LLC Translations: (86091) (Work [ Phone: Osteoarthrosis , hand] ) External cause Other external no information no information LAW RENCE Not Available codes: cause status KAYLENE , DO (59925) Unspecified (1 source.) Unclassified Other long no information no information Mena Littlejohn (1 source.) term (current) 72556 VICTORIA RINCON drug therapy (83982) (Work Translations: Phone: [ Other long term (current) ) drug therapy] Unclassified Other obesity no information no information Mena Littlejohn (3 sources.) due to excess 61036 VICTORIA RINCON calories (04539) (Work Translations: Phone: [ Other obesity due to ) excess calories] Other skin Other Episodic Completed [place] disorders (4 seborrheic 94181 VICTORIA RINCON sources.) keratosis (34247) (Work Translations: Phone: [ Other seborrheic ) keratosis, Other seborrheic keratosis, Other seborrheic keratosis, Other seborrheic keratosis] Residual Other no information no information SAL Not Available codes; specified MD YENNIFER (78246) unclassified postprocedural (11 sources.) states Residual Other Episodic Completed EASTON SANCHEZ Via codes; vitaliy Sloan unclassified postprocedural [facility] - (2 sources.) states [place] (62648) Unclassified Pulmonary no information no information no name no information (5 sources.) hypertension, unspecified Unclassified Rash no information no information Mena Littlejohn (1 source.) Translations: 01671 VICTORIA RINCON [ Rash] (55169) (Work Phone: ) Unclassified Scab no information no information Mena Littlejohn (1 source.) Translations: 51494 VICTORIA RINCON [ Scab] (16344) (Work Phone: ) Other injuries Shoulder and Episodic Completed RUTH Not Available and conditions upper arm KAYLENE , DO (56421) due to injury external causes (1 source.) Unclassified Stress no information no information SAIGE SALVAD OR Not Available (13 sources.) fracture, (32032) unspecified foot Other Swelling of Episodic Completed ALI BALDEMAR , Not Prema ilable connective limb MD SINCLAIR (02080) tissue disease (1 source.) Unclassified Unspecified no information no information [place]ena Little[place] [address] VICTORIA RINCON left (47692) (Work calcaneus, Phone: initial encounter for ) closed fracture Translations: [ Unspecified fracture of left calcaneus, initial encounter for closed fracture] Blindness and Unspecified Episodic Completed Mena Littlejohn vision defects visual 43004VICTORIA Dexter MD (3 sources.) disturbance (03021) (Work Translations: Phone: [ Unspecified visual ) disturbance, Unspecified visual disturbance, Unspecified visual disturbance] Unclassified Yeast no information no information Mena Littlejohn (1 source.) infection 99853 VICTORIA RINCON involving the (25264) (Work vagina and Phone: surrounding area ) Translations: [ Yeast infection involving the vagina and surrounding area] Procedures Procedure Normalized Procedure Procedure Result Performer Facility Date 01-26-2018 CT of chest without no information BEATRIS Johnson APRN [facility] (52037) 02-26-2019 Duplex scan of lower no information no name As cension Via [facility] (01285) 03-10-2017 Urnls dip stick/tablet no information no name Mena Littlejohn MD, VICTORIA - rgnt non-auto w/o (99786) (Work Phon e: 03-10-2017 micrscp ) Immunizations Normalized Immunization Date Notes Care Provider Facili ty Immunization influenza, high dose 02-02-2017 no information Mena Littlejohn 88283 Mena Littlejohn MD, seasonal[facility] (79871) (Work preservative-free Phone: ) influenza, seasonal, 02-02-2017 no information Mena Littlejohn 67635Isacc Littlejohn MD, injectable LLC (06504) (Work Phone: ) pneumococcal 10-06-2017 no information Mena Littlejohn MD, conjugate vaccine, [facility] (97510) (Work 13 valent Phone: Translations: [ ) PNEUMOCOCCAL VACC 13 BHARATH IM, PNEUMOCOCCAL VACC 13 BHARATH IM] pneumococcal 10-06-2017 no information Mena Littlejohn MD, Conjugate[facility] (29739) (Work unspecified Phone: formulation ) Translations: [ ADMIN PNEUMOCOCCAL VACCINE] no information 08-01-2018 no information ARMANI VALERO 43794 As cension Via [facility] (04990) ADMIN INFLUENZA 02-02-2017 no information Mena Littlejohn 38772 Mena Littlejohn MD, VIRUS VAC [facility] (39323) (Work Phone: ) Results Test Name Value Interpretation Reference Range Date Time Fa cility (Normalized) (Normalized) (Medline Reference) urinalysis on null Nitrite Test neg neg (N) Mena Littlejohn strip Ql (U) [facility] (70534) (Work Phone: ) Urobilinogen neg neg (N) Mena Littlejohn Test strip Qn MD [facility] (75041) (U) (Work Phone: ) ua on null Bilirubin neg neg (N) Mena Littlejohn MD [facility] (89770) (Work Phone: ) Bilirubin N (N) Mena Littlejohn MD [facility] (50573) (Work Phone: ) Blood N (N) Mena Littlejohn MD [facility] (38680) (Work Phone: ) GLUCOSE neg neg (N) Mena Littlejohn MD [facility] (09704) (Work Phone: ) Ketones neg neg (N) Mena Littlejohn MD [facility] (77930) (Work Phone: ) Ketones N (N) Mena Littlejohn MD [facility] (75843) (Work Phone: ) Leukocytes neg neg (N) Mena Littlejohn [facility] (14314) (Work Phone: ) Leukocytes N (N) Mena Littlejohn MD [facility] (10781) (Work Phone: ) Nitrite POSITIVE (N) Mena ROMERO MD [facility] (43262) (Work Phone: ) Nitrite neg neg (N) Mena Littlejohn [facility] (04099) (Work Phone: ) PH 6 (no code) VICTORIA Magana MD (36115) (Work Phone: ) PH 6.0 (no code) Mena Littlejohn MD [facility] (19026) (Work Phone: ) Protein neg neg (N) VICTORIA Magana MD (20715) (Work Phone: ) Protein N (N) VICTORIA Magana MD (39746) (Work Phone: ) Specific [place] 1.005 (no code) VICTORIA Poe MD (09568) (Work Phone: ) Specific [place] 1.020 (no code) Mena cross MD [facility] (90821) (Work Phone: ) Urobilinogen 0.2 (N) VICTORIA Magana MD (26812) (Work Phone: ) Urobilinogen N (N) Mena Littlejohn MD [facility] (90084) (Work Phone: ) other on null Blood trace trace (N) Mena Littlejohn [facility] (35620) (Work Phone: ) Blood 1+ 1+ (N) Mena Littlejohn [facility] (72548) (Work Phone: ) hematology on null WBC Auto #/vol neg neg (N) Mena Littlejohn MD (Bld) [facility] (42957) (Work Phone: ) WBC Auto #/vol 1+ 1+ (N) Mena Littlejohn MD (Bld) [facility] (98959) (Work Phone: ) urine urobilinogen measurement by automated test strip (mass/volume) on 2018-05-02 Urobilinogen (U) NORMAL (no code) Ritchie Via [Mass/Vol] [facility] (26251) urine total bilirubin detection by test strip on 2018-05-02 Bilirubin Ql (U) Negative (no code) Ritchie Via [facility] (05915) urine protein assay by test strip, semi-quantitativ e on 2018-05-02 Protein Ql (U) Negative (no code) Ritchie [facility] (61515) urine ph measurement by test strip on 2018-05-02 pH (U) 6 [pH] (no code) 4.6 - 8 [pH] Ritchie Vi a [facility] (13215) urine nitrite detection by test strip on 2018-05-02 Nitrite Ql (U) Negative (no code) Ritchie Via [facility] (39628) urine leukocyte esterase detection by dipstick on 2018-05-02 Leukocyte 2+ (*) Ritchie Via esterase Test [facility] strip Ql (U) (07507) urine ketones detection by automated test strip on 2018-05-02 Ketones Auto Negative (no code) Ritchie Via test strip Ql [facility] (U) (79465) urine glucose detection by automated test strip on 2018-05-02 Glucose Auto Negative (no code) Ritchie Via test strip Ql [facility] (U) (46582) urine color determination on 2018-05-02 Color (U) YELLOW (no code) Ritchie [facility] (75838) urine clarity determination on 2018-05-02 Clarity (U) CLEAR (no code) Ritchie [facility] (90267) squamous epithelial cells detection in urine sediment by light microscopy on 2018-05-02 Epithelial no information (no code) Ritchie Via cells.squamous [facility] LM Ql (Urine (31418) sed) specific gravity of urine by test strip on 2018-05-02 Specific gravity 1.015 (*) Ritchie Via (U) [Rel [facility] density] (94366) mucus detection in urine sediment by light microscopy on 2018-05-02 Mucus Ql (Urine Negative (no code) Ritchie Via sed) [facility] (65504) erythrocytes detection in urine sediment by light microscopy on 2018-05-02 RBC Ql (U) 1+ (*) Ritchie Via [facility] (48809) crystals detection in urine sediment by light microscopy on 2018-05-02 Crystals LM Ql NONE (no code) Ritchie Via (Urine sed) [facility] (88924) complete urinalysis with reflex to culture on 2018-05-02 Urinalysis NO (no code) Ritchie Via complete W [facility] Reflex Culture (99441) panel - Urine casts detection in urine sediment by light microscopy on 2018-05-02 Casts LM Ql NONE (no code) Ritchie Via (Urine sed) [facility] (08319) bacterial urine culture on 2018-05-02 Bacteria Organism: SEE (no code) Ritchie Via identified Cx REPORT [facility] Nom (U) (38974) bacteria detection in urine sediment by light microscopy on 2018-05-02 Bacteria LM Ql TRACE (no code) Ritchie Via (Urine sed) [facility] (19199) automated urine sediment leukocyte count by microscopy (number/high power field) on 2018-05-02 WBC LM.HPF no information (no code) Ritchie Via (Urine sed) [facility] [#/Area] (28888) automated urine sediment erythrocyte count by microscopy (number/high power field) on 2018-05-02 RBC LM.HPF no information (no code) Ritchie Via (Urine sed) [facility] [#/Area] (72241) bnp level on 2018-01-26 Natriuretic 53.5 pg/mL (no code) 0 - 100 pg/mL Via [facility] conc (d) [place] (93427) vitamin d 25 oh on 2017-08-29 VITAMIN D, 25 30.92 ng/mL (N) 08-29-2017 Mena Colbert on HYDROXY 13:00-0400 MD [facility] (08675) (Work Phone: ) valproic acid on 2017-08-29 Protein mass 55.0 ug/ml (N) 08-29-2017 Mena Colberto n conc 13:00-0400 [facility] (38111) (Work Phone: ) tsh on 2017-08-29 Thyrotropin Qn 5.72 uIU/mL (N) 08-29-2017 Mena Kimball ton 13:00-0400 [facility] (71046) (Work Phone: ) lipid on 2017-08-29 Cholesterol in 2.9 Ratio (N) 08-29-2017 Mena Kimball ton HDL mass conc 13:00-0400 VICTORIA RINCON (22352) (Work Phone: ) Cholesterol in 50.0 mg/dL (N) 08-29-2017 Mena kyle HDL mass conc 13:00-0400 VICTORIA RINCON (67167) (Work Phone: ) Cholesterol in 83 mg/dL (N) 08-29-2017 Mena kyle LDL mass conc 13:00-0400 [facility] (39504) (Work Phone: ) Cholesterol mass 146 mg/dL (N) 180 - 200 mg/dL 08-29-2017 Mena Littlejohn conc 13:00-0400 [facility] (09660) (Work Phone: ) Triglyceride 66 mg/dL (N) 0 - 150 mg/dL 08-29-2017 Mena Littlejohn mass conc 13:00-0400 MD [facility] (86656) (Work Phone: ) free t4 on 2017-08-29 T4 free mass 0.84 ng/dL (N) 0.9 - 2.2 ng/dL 08-29-2017 Ho aruna Littlejohn conc 13:00-0400 [facility] (46463) (Work Phone: ) comp metabolic on 2017-08-29 Albumin mass 3.7 g/dL (N) 3.4 - 5.4 g/dL 08-29-2017 Deepak Littlejohn conc 13:00-0400 [facility] (66587) (Work Phone: ) Albumin/Globulin 1.5 {ratio} (N) 1 - 2.5 {ratio} 8 Mena Littlejohn mass ratio 13:00-0400 VICTORIA RINCON (69638) (Work Phone: ) ALK PHOS 86 U/L (N) 08-29-2017 Mena Littlejohn 13:00-0400 VICTORIA RINCON (38438) (Work Phone: ) ALT enzyme 10 U/L (N) 4 - 40 U/L 08-29-2017 Mena Branham crystaln act/vol 13:00-0400 VICTORIA RINCON (07365) (Work Phone: ) Anion gap 3 14 mmol/L (N) 3 - 11 mmol/L 08-29-2017 Mena Littlejohn molar conc 13:00-0400 VICTORIA RINCON (18477) (Work Phone: ) AST enzyme 15 U/L (N) 10 - 34 U/L 08-29-2017 Mena charles act/vol 13:00-0400 VICTORIA RINCON (94454) (Work Phone: ) B/C Ratio 15.5 Ratio (N) 08-29-2017 Mena Littlejohn 13:00-0400 VICTORIA RINCON (43131) (Work Phone: ) Bilirubin mass 0.4 mg/dL (N) 0.1 - 1.2 mg/dL 08-29-2017 H aparna Annetta conc 13:00-0400 VICTORIA RINCON (93003) (Work Phone: ) Calcium mass 9.0 mg/dL (N) 8.5 - 10.2 mg/dL 08-29-2017 Ho aruna Annetta conc 13:00-0400 VICTORIA RINCON (67978) (Work Phone: ) Chloride molar 100 mmol/L (N) 95 - 106 mmol/L 08-29-2017 Mena Littlejohn conc 13:00-0400 VICTORIA RINCON (24755) (Work Phone: ) CO2 molar conc 28.0 mmol/L (N) 23 - 29 mmol/L 08-29-2017 Mena Littlejohn 13:00-0400 VICTORIA RINCON (97763) (Work Phone: ) Creatinine mass 0.7 mg/dL (N) 08-29-2017 Mena rojasn conc 13:00-0400 VICTORIA RINCON (44734) (Work Phone: ) GFR/1.73 sq M 84 ml/min/1.73m2 (N) 08-29-2017 Mena [place] val[place] predicted among 13:00-0400 VICTORIA RINCON (91401) non-blacks MDRD (Work Phone: vol rate/area ) (S/P/Bld) Globulin 2.6 g/dL (N) 2 - 3.5 g/dL 08-29-2017 Mena charles Calculated mass 13:00-0400 VICTORIA RINCON (43761) conc (S) (Work Phone: ) Glucose mass 96 mg/dL (N) 60 - 125 mg/dL 08-29-2017 Deepak Littlejohn conc 13:00-0400 VICTORIA RINCON (81503) (Work Phone: ) Osmolality 275 mOsmo (N) 08-29-2017 Mena Littlejohn 13:00-0400 VICTORIA RINCON (47958) (Work Phone: ) Potassium molar 4.4 mmol/L (N) 3.7 - 5.2 mmol/L 08-29-2017 Mena Littlejohn conc 13:00-0400 VICTORIA RINCON (16154) (Work Phone: ) Protein mass 6.3 g/dL (N) 6.4 - 8.3 g/dL 08-29-2017 Deepak Littlejohn conc 13:00-0400 VICTORIA RINCON (89733) (Work Phone: ) Sodium molar 138 mmol/L (N) 135 - 145 mmol/L 08-29-2017 H aparna Annetta conc 13:00-0400 VICTORIA RINCON (02998) (Work Phone: ) Urea nitrogen 11 mg/dL (N) 7 - 20 mg/dL 08-29-2017 Mena Littlejohn mass conc 13:00-0400 VICTORIA RINCON (01756) (Work Phone: ) cbc with differential on 2017-08-29 Baso ABS# 0.1 K/ul (N) 08-29-2017 Mena Littlejohn 13:00-0400 VICTORIA RINCON (42340) (Work Phone: ) Basophils/100 0.4 % (N) 0.5 - 1 % 08-29-2017 Mena aparicio WBC Auto (Bld) 13:00-0400 VICTORIA RINCON (88308) (Work Phone: ) Eos ABS# 0.4 K/ul (N) 08-29-2017 Mena Littlejohn 13:00-0400 VICTORIA RINCON (35763) (Work Phone: ) Eosinophils/100 3.7 % (N) 1 - 4 % 08-29-2017 Mena Littlejohn WBC Auto (Bld) 13:00-0400 VICTORIA RINCON (01656) (Work Phone: ) Erythrocyte 16.7 % (N) 11.6 - 14.6 % 08-29-2017 Mena Littlejohn distribution 13:00-0400 VICTORIA RINCON (16873) width Auto Ratio (Work Phone: (RBC) ) Hematocrit Auto 42.6 % (N) 36.1 - 50.3 % 08-29-2017 Sinan Littlejohn Volume Fraction 13:00-0400 VICTORIA RINCON (26095) (Bld) (Work Phone: ) Hemoglobin mass 13.8 g/dL (N) 12.1 - 17.2 g/dL 08-29-2017 Mena Littlejohn conc (Bld) 13:00-0400 VICTORIA RINCON (43021) (Work Phone: ) Lymphocytes Auto 2.39 10*3/uL (N) 0.9 - 2.9 08-29-2017 Sinan Littlejohn #/vol (Bld) 10*3/uL 13:00-0400 VICTORIA RINCON (20670) (Work Phone: ) Lymphocytes/100 20.3 % (N) 20 - 40 % 08-29-2017 Mena Littlejohn WBC Auto (Bld) 13:00-0400 VICTORIA RINCON (26517) (Work Phone: ) MCH Auto Entitic 27.1 pg (N) 27 - 31 pg 08-29-2017 Deepak Littlejohn mass (RBC) 13:00-0400 VICTORIA RINCON (11321) (Work Phone: ) MCHC Auto mass 32.4 pg (N) 08-29-2017 Mena Kimball ton conc (RBC) 13:00-0400 VICTORIA RINCON (99105) (Work Phone: ) MCV Auto Entitic 83.7 fL (N) 80 - 100 fL 08-29-2017 Slime Littlejohn volume (RBC) 13:00-0400 [facility] (15547) (Work Phone: ) [place] ABS# 1.2 K/ul (N) 08-29-2017 Mena Littlejohn 13:00-0400 VICTORIA RINCON (62510) (Work Phone: ) Monocytes/100 10.3 % (N) 2 - 8 % 08-29-2017 Mena aparicio WBC Auto (Bld) 13:00-0400 [facility] (89150) (Work Phone: ) Neut ABS# 7.70 K/ul (N) 08-29-2017 Mena Littlejohn 13:00-0400 MD [facility] (17020) (Work Phone: ) Neutrophils/100 65.3 % (N) 40 - 60 % 08-29-2017 Mena Littlejohn WBC Auto (Bld) 13:00-0400 VICTORIA RINCON (78481) (Work Phone: ) Platelets Auto 329 10*3/uL (N) 150 - 450 08-29-2017 Mena Littlejohn #/vol (Bld) 10*3/uL 13:00-0400 VICTORIA RINCON (45392) (Work Phone: ) RBC Auto #/vol 5.09 10*6/uL (N) 4.2 - 6.1 08-29-2017 Deepak Littlejohn (Bld) 10*6/uL 13:00-0400 [facility] (41901) (Work Phone: ) WBC Auto #/vol 11.80 10*3/uL (N) 3.5 - 10.5 08-29-2017 Sinan Littlejohn (Bld) 10*3/uL 13:00-0400 MD [facility] (49538) (Work Phone: ) %hba1c on 2017-08-29 Glucose mass 120 mg/dL (N) 60 - 125 mg/dL 08-29-2017 Deepak Littlejohn conc 13:00-0400 MD [facility] (41626) (Work Phone: ) Hemoglobin 5.8 % (N) 0 - 5.7 % 08-29-2017 Mena Kimball ton A1c/Hemoglobin.t 13:00-0400 MD [facility] (09838) otal mass (Work Phone: fraction (Bld) ) hematology on 2017-05-02 Basophils Auto 0.0 10*3/uL (no code) 0 - 0.3 10*3/uL 05-02-2017 Not Available #/vol (Bld) 04:54-0500 (15993) Basophils/100 0.40 % (no code) 0.5 - 1 % 05-02-2017 Not Avai lable WBC Auto (Bld) 04:54-0500 (42862) Eosinophils Auto 0.3 10*3/uL (no code) 0.05 - 0.5 05-02-2017 No t Available #/vol (Bld) 10*3/uL 04:54-0500 (45684) Eosinophils/100 3.3 % (no code) 1 - 4 % 05-02-2017 Not Av ailable WBC Auto (Bld) 04:54-0500 (10697) Erythrocyte 17.2 % (H) 11.6 - 14.6 % 05-02-2017 Not Av ailable distribution 04:54-0500 (39302) width Auto Ratio (RBC) Hematocrit Auto 41.1 % (no code) 36.1 - 50.3 % 05-02-2017 No t Available Volume Fraction 04:54-0500 (15410) (Bld) Hemoglobin mass 13.2 g/dL (no code) 12.1 - 17.2 g/dL 05-02-2017 Not Available conc (Bld) 04:54-0500 (84723) Lymphocytes Auto 3.72 10*3/uL (H) 0.9 - 2.9 05-02-2017 No t Available #/vol (Bld) 10*3/uL 04:54-0500 (56510) Lymphocytes/100 45.2 % (no code) 20 - 40 % 05-02-2017 Not Av ailable WBC Auto (Bld) 04:54-0500 (56072) MCH Auto Entitic 27.1 pg (no code) 27 - 31 pg 05-02-2017 Not Available mass (RBC) 04:54-0500 (87743) MCHC Auto mass 32.1 g/dL (no code) 32 - 36 g/dL 05-02-2017 Not Available conc (RBC) 04:54-0500 (87140) MCV Auto Entitic 84.4 fL (no code) 80 - 100 fL 05-02-2017 Not Available volume (RBC) 04:54-0500 (32349) Monocytes Auto 1.5 10*3/uL (H) 0.3 - 0.9 05-02-2017 Not A vailable #/vol (Bld) 10*3/uL 04:54-0500 (96915) Monocytes/100 18.7 % (H) 2 - 8 % 05-02-2017 Not Avai lable WBC Auto (Bld) 04:54-0500 (77420) Neutrophils Auto 2.67 10*3/uL (no code) 1.7 - 7 10*3/uL 05-02-20 17 Not Available #/vol (Bld) 04:54-0500 (32812) Neutrophils/100 32.4 % (L) 40 - 60 % 05-02-2017 Not Av ailable WBC Auto (Bld) 04:54-0500 (26808) Platelet mean 10.8 fL (H) 7.2 - 11.7 fL 05-02-2017 Not Available volume Auto 04:54-0500 (49863) Entitic volume (Bld) Platelets Auto 209 10*3/uL (no code) 150 - 450 05-02-2017 Not A vailable #/vol (Bld) 10*3/uL 04:54-0500 (83658) RBC Auto #/vol 4.87 10*6/uL (no code) 4.2 - 6.1 05-02-2017 Not Available (Bld) 10*6/uL 04:54-0500 (30268) WBC Auto #/vol 8.23 10*3/uL (no code) 3.5 - 10.5 05-02-2017 Not Available (Bld) 10*3/uL 04:54-0500 (47249) other on 2017-04-26 Amoxicillin/K <=4/2 (no code) Not Available Clavulanate (26216) Ampicillin <=2 (S) Not Available (61307) Ampicillin/Sulba <=8/4 (no code) Not Available ctam (93427) Cefoxitin Screen N/R (no code) Not Available (40957) Ceftriaxone >32 (no code) Not Available (33435) Clindamycin >4 (no code) Not Available (16988) CULTURE SOURCE straight cath (no code) 04-26-2017 Not Avail able 13:45-0500 (04151) Daptomycin <=0.5 (S) Not Available (71766) Erythromycin 2 (no code) Not Available (95657) FINAL CULTURE Enterococcus (no code) 04-26-2017 Not Availab le RESULTS faecalis 13:45-0500 (07657) (Isolate 1) Gentamicin 8 (no code) Not Available (71791) Gentamicin <=500 (S) Not Available Synergy Screen (91903) Inducible N/R (no code) Not Available Clindamycin (28193) Levofloxacin <=1 (S) Not Available (14414) Linezolid 2 (S) Not Available (51396) MEDIA PLATED Setup at 12:58 (no code) 04-26-2017 Not Availa ble on 04/26/2017 13:45-0500 (26852) Moxifloxacin <=0.5 (no code) Not Available (15080) Nitrofurantoin <=32 (S) Not Available (95151) Oxacillin 2 (no code) Not Available (11741) Penicillin 2 (S) Not Available (82933) PRELIM CULTURE 10,000-20,000 (no code) 04-26-2017 Not Avail able RESULTS Enterococcus SANJEEV 13:45-0500 (59004) / ID to Follow Rifampin <=1 (S) Not Available (33272) Streptomycin <=1000 (S) Not Available Synergy (29672) Synercid N/R (no code) Not Available (93618) Tetracycline >8 (R) Not Available (56382) Trimethoprim/ <=0.5/9.5 (no code) Not Available Sulfamethoxazole (40273) Vancomycin 1 (S) Not Available (89871) no panel information on 2017-04-26 NEGATED no information (A) 04-26-2017 no informat ion no 12:45-0500 information NEGATED no information (no code) 04-26-2017 no informat ion no 12:45-0500 information NEGATED no information (no code) 04-26-2017 no informat ion no 12:45-0500 information NEGATED no information (no code) 04-26-2017 no informat ion no 12:45-0500 information NEGATED no information (A) 04-26-2017 no informat ion no 12:45-0500 information NEGATED no information (no code) 04-26-2017 no informat ion no 12:45-0500 information NEGATED no information (A) 04-26-2017 no informat ion no 12:45-0500 information NEGATED no information (A) 04-26-2017 no informat ion no 12:45-0500 information NEGATED no information (no code) 04-26-2017 no informat ion no 12:45-0500 information NEGATED no information (A) 04-26-2017 no informat ion no 12:45-0500 information NEGATED no information (no code) 04-26-2017 no informat ion no 12:45-0500 information NEGATED no information (no code) 04-26-2017 no informat ion no 12:45-0500 information NEGATED no information (no code) 04-26-2017 no informat ion no 12:45-0500 information NEGATED no information (A) 04-26-2017 no informat ion no 12:45-0500 information NEGATED no information (no code) 04-26-2017 no informat ion no 12:45-0500 information NEGATED no information (no code) 04-26-2017 no informat ion no 12:45-0500 information NEGATED no information (no code) 04-26-2017 no informat ion no 12:45-0500 information NEGATED no information (A) 04-26-2017 no informat ion no 12:45-0500 information NEGATED no information (A) 04-26-2017 no informat ion no 12:45-0500 information NEGATED no information (A) 04-26-2017 no informat ion no 12:45-0500 information metabolic panel on 2017-04-26 Protein mass g/dL (S) 6.4 - 8.3 g/dL Not Avail able conc (35962) hematology on 2017-04-23 Basophils Auto 0.0 10*3/uL (no code) 0 - 0.3 10*3/uL 04-23-2017 no information #/vol (Bld) 05:25-0500 Basophils/100 0.40 % (no code) 0.5 - 1 % 04-23-2017 no infor mation WBC Auto (Bld) 05:25-0500 Eosinophils Auto 0.3 10*3/uL (no code) 0.05 - 0.5 04-23-2017 no information #/vol (Bld) 10*3/uL 05:25-0500 Eosinophils/100 4.1 % (no code) 1 - 4 % 04-23-2017 no inf ormation WBC Auto (Bld) 05:25-0500 Erythrocyte 16.5 % (H) 11.6 - 14.6 % 04-23-2017 no inf ormation distribution 05:25-0500 width Auto Ratio (RBC) Hematocrit Auto 40.2 % (no code) 36.1 - 50.3 % 04-23-2017 no information Volume Fraction 05:25-0500 (Bld) Hemoglobin mass 13.2 g/dL (no code) 12.1 - 17.2 g/dL 04-23-2017 no information conc (Bld) 05:25-0500 Lymphocytes Auto 3.13 10*3/uL (no code) 0.9 - 2.9 04-23-2017 no information #/vol (Bld) 10*3/uL 05:25-0500 Lymphocytes/100 37.7 % (no code) 20 - 40 % 04-23-2017 no inf ormation WBC Auto (Bld) 05:25-0500 MCH Auto Entitic 27.5 pg (no code) 27 - 31 pg 04-23-2017 no i nformation mass (RBC) 05:25-0500 MCHC Auto mass 32.8 g/dL (no code) 32 - 36 g/dL 04-23-2017 no i nformation conc (RBC) 05:25-0500 MCV Auto Entitic 83.8 fL (no code) 80 - 100 fL 04-23-2017 no information volume (RBC) 05:25-0500 Monocytes Auto 1.1 10*3/uL (H) 0.3 - 0.9 04-23-2017 no in formation #/vol (Bld) 10*3/uL 05:25-0500 Monocytes/100 13.1 % (H) 2 - 8 % 04-23-2017 no infor mation WBC Auto (Bld) 05:25-0500 Neutrophils Auto 3.71 10*3/uL (no code) 1.7 - 7 10*3/uL 04-23-20 17 no information #/vol (Bld) 05:25-0500 Neutrophils/100 44.7 % (no code) 40 - 60 % 04-23-2017 no inf ormation WBC Auto (Bld) 05:25-0500 Platelet mean 11.3 fL (H) 7.2 - 11.7 fL 04-23-2017 no i nformation volume Auto 05:25-0500 Entitic volume (Bld) Platelets Auto 241 10*3/uL (no code) 150 - 450 04-23-2017 no in formation #/vol (Bld) 10*3/uL 05:25-0500 RBC Auto #/vol 4.80 10*6/uL (no code) 4.2 - 6.1 04-23-2017 no i nformation (Bld) 10*6/uL 05:25-0500 WBC Auto #/vol 8.30 10*3/uL (no code) 3.5 - 10.5 04-23-2017 no information (Bld) 10*3/uL 05:25-0500 drug on 2017-04-23 Valproate mass 45.4 ug/mL (L) 50 - 100 ug/mL 04-23-2017 N ot Available conc 06:25-0500 ([id number]) other on 2017-04-16 Albumin 3.0 (L) 04-16-2017 Not Available Bromocresol 06:000500 (93943) green (BCG) dye binding method mass conc Anion gap 4 11 (no code) 04-16-2017 Not Available molar conc 06:00-0500 (29971) Electrocardiogra Complete (no code) 04-16-2017 Not Avail able ms recorded 06:00-0500 ([id number]) Globulin 2.2 g/dL (L) 2 - 3.5 g/dL 04-16-2017 Not Avail able Calculated mass 06:00-0500 (56423) conc (S) HCO3 molar conc 27 (no code) 04-16-2017 Not Availa ble (P) 06:000500 (73314) Osmolality 285 (no code) 04-16-2017 Not Available Calculated 06:000500 (44303) metabolic panel on 2017-04-16 ALP enzyme 79 U/L (no code) 44 - 147 U/L 04-16-2017 Not Avai lable act/vol 06:000500 (46438) ALT enzyme 10 U/L (no code) 4 - 40 U/L 04-16-2017 Not Availa ble act/vol 06:000500 (13525) AST enzyme 13 U/L (no code) 10 - 34 U/L 04-16-2017 Not Avail able act/vol 06:000500 (21579) Bilirubin mass 0.3 mg/dL (no code) 0.1 - 1.2 mg/dL 04-16-2017 N ot Available conc 06:0500 (65074) Calcium mass 8.2 mg/dL (L) 8.5 - 10.2 mg/dL 04-16-2017 No t Available conc 06:000500 (28009) Chloride molar 105 mmol/L (no code) 95 - 106 mmol/L 04-16-2017 Not Available conc 06:000500 (80095) Creatinine mass 0.70 mg/dL (no code) 04-16-2017 Not Availa ble conc 06:000500 (90201) GFR/1.73 sq 81 (no code) 90 - 120 04-16-2017 Not Availa ble M.predicted MDRD mL/min/{1.73_m2} mL/min/{1.73_m2} 06:000500 (12423) vol rate/area Glucose mass 82 mg/dL (no code) 60 - 125 mg/dL 04-16-2017 Not Available conc 06:000500 (26867) Potassium molar 4.0 mmol/L (no code) 3.7 - 5.2 mmol/L 04-16-2017 Not Available conc 06:000500 (27853) Protein mass 5.2 g/dL (L) 6.4 - 8.3 g/dL 04-16-2017 Not Available conc 06:00-0500 (97936) Sodium molar 139 mmol/L (no code) 135 - 145 mmol/L 04-16-2017 N ot Available conc 06:00-0500 (69934) Urea nitrogen 10 mg/dL (no code) 7 - 20 mg/dL 04-16-2017 Not A vailable mass conc 06:000500 (06100) hematology on 2017-04-16 Basophils Auto 0.0 10*3/uL (no code) 0 - 0.3 10*3/uL 04-16-2017 Not Available #/vol (Bld) 06:000500 (42163) Basophils/100 0.40 % (no code) 0.5 - 1 % 04-16-2017 Not Avai lable WBC Auto (Bld) 06:000500 (60702) Eosinophils Auto 0.4 10*3/uL (no code) 0.05 - 0.5 04-16-2017 No t Available #/vol (Bld) 10*3/uL 06:000500 (37233) Eosinophils/100 4.5 % (no code) 1 - 4 % 04-16-2017 Not Av ailable WBC Auto (Bld) 06:000500 (91465) Erythrocyte 16.6 % (H) 11.6 - 14.6 % 04-16-2017 Not Av ailable distribution 06:000500 (21402) width Auto Ratio (RBC) Hematocrit Auto 39.1 % (no code) 36.1 - 50.3 % 04-16-2017 No t Available Volume Fraction 06:00-0500 (42735) (Bld) Hemoglobin mass 12.9 g/dL (L) 12.1 - 17.2 g/dL 04-16-2017 Not Available conc (Bld) 06:00-0500 (40032) Lymphocytes Auto 2.94 10*3/uL (no code) 0.9 - 2.9 04-16-2017 No t Available #/vol (Bld) 10*3/uL 06:00-0500 (54385) Lymphocytes/100 34.5 % (no code) 20 - 40 % 04-16-2017 Not Av ailable WBC Auto (Bld) 06:000500 (86638) MCH Auto Entitic 27.6 pg (no code) 27 - 31 pg 04-16-2017 Not Available mass (RBC) 06:000500 (95441) MCHC Auto mass 33.0 g/dL (no code) 32 - 36 g/dL 04-16-2017 Not Available conc (RBC) 06:000500 (71570) MCV Auto Entitic 83.5 fL (no code) 80 - 100 fL 04-16-2017 Not Available volume (RBC) 06:000500 (95010) Monocytes Auto 1.2 10*3/uL (H) 0.3 - 0.9 04-16-2017 Not A vailable #/vol (Bld) 10*3/uL 06:000500 (55750) Monocytes/100 14.3 % (H) 2 - 8 % 04-16-2017 Not Avai lable WBC Auto (Bld) 06:000500 (77970) Neutrophils Auto 3.95 10*3/uL (no code) 1.7 - 7 10*3/uL 04-16-20 17 Not Available #/vol (Bld) 06:000500 (41410) Neutrophils/100 46.3 % (no code) 40 - 60 % 04-16-2017 Not Av ailable WBC Auto (Bld) 06:000500 (29108) Platelet mean 10.8 fL (H) 7.2 - 11.7 fL 04-16-2017 Not Available volume Auto 06:00-0500 (03813) Entitic volume (Bld) Platelets Auto 225 10*3/uL (no code) 150 - 450 04-16-2017 Not A vailable #/vol (Bld) 10*3/uL 06:000500 (43859) RBC Auto #/vol 4.68 10*6/uL (no code) 4.2 - 6.1 04-16-2017 Not Available (Bld) 10*6/uL 06:000500 (06199) WBC Auto #/vol 8.52 10*3/uL (no code) 3.5 - 10.5 04-16-2017 Not Available (Bld) 10*3/uL 06:000500 (23687) drug on 2017-04-16 Valproate mass 44.1 ug/mL (L) 50 - 100 ug/mL 04-16-2017 N ot Available conc 06:00-0500 (11618) drug on 2017-04-06 Valproate 46.0 ug/mL (L) 50 - 100 ug/mL 04-06-2017 Not Av ailable [Mass/Vol] 06:30-0500 (18787) other on 2017-04-01 Cholesterol in 12 mg/dL (no code) 04-01-2017 Not Availab le VLDL [Mass/Vol] 06:100500 (03682) Cholesterol.tota 3.2 {ratio} (L) 04-01-2017 Not Avail able l/Cholesterol in 06:10-0500 (25800) HDL [Mass ratio] cardiac on 2017-04-01 Cholesterol 159 mg/dL (no code) 180 - 200 mg/dL 04-01-2017 Not Available [Mass/Vol] 06:100500 (84598) Cholesterol in 50 mg/dL (no code) 04-01-2017 Not Availab le HDL [Mass/Vol] 06:10-0500 (33601) Cholesterol in 97 mg/dL (no code) 0 - 100 mg/dL 04-01-2017 Not Available LDL [Mass/Vol] 06:10-0500 (37416) Triglyceride 61 mg/dL (no code) 0 - 150 mg/dL 04-01-2017 Not A vailable [Mass/Vol] 06:10-0500 (46121) urinalysis on 2017-03-31 Bilirubin Ql (U) 0.4 (no code) 03-31-2017 Not Avail able 14:0500 (30744) Clarity (U) Clear (no code) 03-31-2017 Not Available 15:0500 (03389) Color (U) Yellow (no code) 03-31-2017 Not Available 15:0500 (81708) Epithelial 0-5/HPF (A) 03-31-2017 Not Available cells.squamous 15:0 (58222) LM.HPF (Urine sed) [#/Area] Leukocyte Negative (no code) 03-31-2017 Not Available esterase Test 15:0 (14397) strip Ql (U) Protein (U) Negative (no code) 0 - 20 mg/dL 03-31-2017 Not Prema ilable [Mass/Vol] 15:17-0500 (04788) RBC LM.HPF 2-5/HPF (A) 03-31-2017 Not Available (Urine sed) 15:17-0500 (79675) [#/Area] Specific gravity 1.010 (no code) 03-31-2017 Not Avail able (U) [Rel 15:17-0500 (40758) density] WBC LM.HPF Negative (no code) 0 - 5 /[HPF] 03-31-2017 Not Avai lable (Urine sed) 15:17-0500 (28767) [#/Area] thyroid on 2017-03-31 Free T4 1.32 ng/dL (no code) 0.9 - 2.2 ng/dL 03-31-2017 Not A vailable [Mass/Vol] 15:17-0500 (67914) TSH Qn 0.99 (no code) 03-31-2017 Not Available 15:17-0500 (24568) other on 2017-03-31 25-Hydroxyvitami 43.70 (no code) 03-31-2017 Not Avail able n 15:17-0500 (44674) D2+25-Hydroxyvit floyd D3 [Mass/Vol] Bacteria LM Ql Trace (A) 03-31-2017 Not Availab le (Urine sed) 15:17-0500 (06758) Bilirubin N/A (A) 03-31-2017 Not Available Confirm Ql (U) 15:17-0500 (64415) Bilirubin Ql (U) Negative (no code) 03-31-2017 Not Avail able 15:17-0500 (55917) Cobalamin 432.00 pg/mL (no code) 200 - 900 pg/mL 03-31-2017 Not Available (Vitamin B12) 15:17-0500 (88452) [Mass/Vol] Electrocardiogra Complete (no code) 03-31-2017 Not Avail able ms recorded 15:17-0500 (09224) Erythrocyte 16.4 % (H) 11.6 - 14.6 % 03-31-2017 Not Av ailable distribution 15:17-0500 (09691) width (RBC) [Ratio] Folate (Bld) 16.10 (no code) 03-31-2017 Not Available [Mass/Vol] 15:17-0500 (65758) Globulin 2.7 g/dL (no code) 2 - 3.5 g/dL 03-31-2017 Not Avail able Calculated mass 14:17-0500 (74841) conc (S) Glucose Test Negative (no code) 03-31-2017 Not Available strip (U) 15:17-0500 (72114) [Mass/Vol] Hemoglobin Ql 1+ (A) 03-31-2017 Not Availabl e (U) 15:17-0500 (40969) Iron binding 271 (L) 03-31-2017 Not Available capacity 15:17-0500 (87806) [Mass/Vol] Iron/Iron 20.65 (no code) 03-31-2017 Not Available binding 15:17-0500 (05454) capacity.total [Mass Ratio] in Serum or Plasma Ketones (U) Negative (no code) 03-31-2017 Not Available [Mass/Vol] 15:17-0500 (42555) MCHC (RBC) 31.6 g/dL (L) 32 - 36 g/dL 03-31-2017 Not Avai lable [Mass/Vol] 15:17-0500 (29238) Nitrite Ql (U) Negative (no code) 03-31-2017 Not Availab le 15:17-0500 (83439) pH (U) 7.0 [pH] (no code) 4.6 - 8 [pH] 03-31-2017 Not Avail able 15:17-0500 (73844) Platelet mean 10.1 fL (H) 7.2 - 11.7 fL 03-31-2017 Not Available volume (Bld) 15:17-0500 (92236) [Entitic vol] Transferrin 217 (no code) 03-31-2017 Not Available [Mass/Vol] 15:17-0500 (24288) Urine Volume Urine Volume (no code) 03-31-2017 Not Availabl e Sufficient 15:17-0500 (75173) (10mL) Urobilinogen Qn 0.2 (A) 03-31-2017 Not Availa ble (U) {Laith'U}/dL 15:17-0500 (68610) no information Urine Saved if (A) 03-31-2017 Not Avai lable Culture Needed 15:17-0500 (56122) (48hrs from time of collection) no panel information on 2017-03-31 NEGATED no information (no code) 03-31-2017 Not Availab le no 14:17-0500 (03471) information NEGATED no information (no code) 03-31-2017 Not Availab le no 14:17-0500 (20719) information NEGATED no information (no code) 03-31-2017 no informat ion no 14:17-0500 information NEGATED no information (no code) 03-31-2017 no informat ion no 14:17-0500 information NEGATED no information (no code) 03-31-2017 Not Availab le no 14:17-0500 (94860) information NEGATED no information (no code) 03-31-2017 Not Availab le no 14:17-0500 (75356) information NEGATED no information (no code) 03-31-2017 no informat ion no 14:17-0500 information NEGATED no information (no code) 03-31-2017 no informat ion no 14:17-0500 information NEGATED no information (no code) 03-31-2017 no informat ion no 14:17-0500 information NEGATED no information (no code) 03-31-2017 no informat ion no 14:17-0500 information NEGATED no information (no code) 03-31-2017 no informat ion no 14:17-0500 information NEGATED no information (no code) 03-31-2017 no informat ion no 14:17-0500 information NEGATED no information (no code) 03-31-2017 no informat ion no 14:17-0500 information NEGATED no information (no code) 03-31-2017 no informat ion no 14:17-0500 information NEGATED no information (no code) 03-31-2017 no informat ion no 14:17-0500 information NEGATED no information (no code) 03-31-2017 no informat ion no 14:17-0500 information NEGATED no information (no code) 03-31-2017 no informat ion no 14:17-0500 information NEGATED no information (no code) 03-31-2017 no informat ion no 14:17-0500 information metabolic panel on 2017-03-31 Albumin mass 3.7 g/dL (no code) 3.4 - 5.4 g/dL 03-31-2017 Not Available conc 14:0 (80408) ALP enzyme 95 U/L (no code) 44 - 147 U/L 03-31-2017 Not Avai lable act/vol 14:0 (72768) ALT enzyme 12 U/L (no code) 4 - 40 U/L 03-31-2017 Not Availa ble act/vol 14:0 (38646) Anion gap 3 12 mmol/L (no code) 3 - 11 mmol/L 03-31-2017 Not Av ailable molar conc 14:0 (91769) AST enzyme 21 U/L (no code) 10 - 34 U/L 03-31-2017 Not Avail able act/vol 14:0 (78404) Calcium mass 9.1 mg/dL (no code) 8.5 - 10.2 mg/dL 03-31-2017 No t Available conc 14: (84270) Chloride molar 104 mmol/L (no code) 95 - 106 mmol/L 03-31-2017 Not Available conc 14:0 (88687) CO2 molar conc 28 mmol/L (no code) 23 - 29 mmol/L 03-31-2017 No t Available 14:0 (01906) Creatinine mass 0.79 mg/dL (no code) 03-31-2017 Not Availa ble conc 14:0 (57975) GFR/1.73 sq M 70 (no code) 90 - 120 03-31-2017 Not Avai lable predicted among mL/min/{1.73_m2} mL/min/{1.73_m2} 14:0 (35174) non-blacks MDRD vol rate/area (S/P/Bld) Glucose mass 95 mg/dL (no code) 60 - 125 mg/dL 03-31-2017 Not Available conc 14:0 (10466) Iron [Mass/Vol] 56 ug/dL (L) 60 - 170 ug/dL 03-31-2017 N ot Available 15:0 (10585) Osmolality 287 mosm/kg (no code) 275 - 295 03-31-2017 Not Avail able mosm/kg 14: (38837) Potassium molar 4.3 mmol/L (no code) 3.7 - 5.2 mmol/L 03-31-2017 Not Available conc 14: (68056) Protein mass 6.4 g/dL (no code) 6.4 - 8.3 g/dL 03-31-2017 Not Available conc 14: (46327) Sodium molar 140 mmol/L (no code) 135 - 145 mmol/L 03-31-2017 N ot Available conc 14: (59129) Urea nitrogen 6 mg/dL (no code) 7 - 20 mg/dL 03-31-2017 Not A vailable mass conc 14: (54812) hematology on 2017-03-31 Basophils (Bld) 0.0 10*3/uL (no code) 0 - 0.3 10*3/uL 03-31-2017 Not Available [#/Vol] 15:0 (76602) Basophils/100 0.30 % (no code) 0.5 - 1 % 03-31-2017 Not Avai lable WBC (Bld) 15:0 (51154) Eosinophils 0.1 10*3/uL (no code) 0.05 - 0.5 03-31-2017 Not Prema ilable (Bld) [#/Vol] 10*3/uL 15:0500 (02317) Eosinophils/100 1.8 % (no code) 1 - 4 % 03-31-2017 Not Av ailable WBC (Bld) 15:0 (01321) Hematocrit (Bld) 43.0 % (no code) 36.1 - 50.3 % 03-31-2017 N ot Available [Volume 15: (89680) fraction] Hemoglobin (Bld) 13.6 g/dL (no code) 12.1 - 17.2 g/dL 03-31-2017 Not Available [Mass/Vol] 15:0500 (09377) Lymphocytes 2.87 10*3/uL (no code) 0.9 - 2.9 03-31-2017 Not Prema ilable (Bld) [#/Vol] 10*3/uL 15:17-0500 (10950) Lymphocytes/100 37.6 % (no code) 20 - 40 % 03-31-2017 Not Av ailable WBC (Bld) 15:17-0500 (22098) MCH (RBC) 27.0 pg (no code) 27 - 31 pg 03-31-2017 Not Availab le [Entitic mass] 15:17-0500 (97446) MCV (RBC) 85.5 fL (no code) 80 - 100 fL 03-31-2017 Not Availa ble [Entitic vol] 15:17-0500 (64813) Monocytes (Bld) 0.8 10*3/uL (no code) 0.3 - 0.9 03-31-2017 Not Available [#/Vol] 10*3/uL 15:17-0500 (25198) Monocytes/100 10.0 % (no code) 2 - 8 % 03-31-2017 Not Avai lable WBC (Bld) 15:17-0500 (39960) Neutrophils 3.84 10*3/uL (no code) 1.7 - 7 10*3/uL 03-31-2017 N ot Available (Bld) [#/Vol] 15:17-0500 (20948) Neutrophils/100 50.3 % (no code) 40 - 60 % 03-31-2017 Not Av ailable WBC (Bld) 15:17-0500 (09911) Platelets (Bld) 240 10*3/uL (no code) 150 - 450 03-31-2017 Not Available [#/Vol] 10*3/uL 15:17-0500 (84684) RBC (Bld) 5.03 10*6/uL (H) 4.2 - 6.1 03-31-2017 Not Avail able [#/Vol] 10*6/uL 15:17-0500 (26162) WBC (Bld) 7.63 10*3/uL (no code) 3.5 - 10.5 03-31-2017 Not Avai lable [#/Vol] 10*3/uL 15:17-0500 (49709) urine culture on 2017-03-12 Complete NO Growth Day 2 (no code) 03-12-2017 Mena Carrol [place] NO Growth Day 2 13:00-0400 [facility] (56506) (Work Phone: ) Preliminary NO Growth Day 1 (no code) 03-12-2017 Mena hopkins NO Growth Day 1 13:00-0400 [facility] ([id number]) (Work Phone: ) valproic acid on 2016-12-30 Protein mass 31.0 ug/ml (N) 12-30-2016 Mena Colberto n conc 13:00-0400 [facility] ([id number]) (Work Phone: ) tsh on 2016-12-30 Thyrotropin Qn 3.57 uIU/mL (N) 12-30-2016 Mena Kimball ton 13:00-0400 [facility] (34306) (Work Phone: ) free t4 on 2016-12-30 T4 free mass 1.05 ng/dL (N) 0.9 - 2.2 ng/dL 12-30-2016 Ho aruna Littlejohn conc 13:00-0400 [facility] (05650) (Work Phone: ) comp metabolic on 2016-12-30 Albumin mass 3.5 g/dL (N) 3.4 - 5.4 g/dL 12-30-2016 Deepak Littlejohn conc 13:00-0400 [facility] (14460) (Work Phone: ) Albumin/Globulin 1.2 {ratio} (N) 1 - 2.5 {ratio} 7 Mena Littlejohn mass ratio 13:00-0400 [facility] (31346) (Work Phone: ) ALK PHOS 109 U/L (N) 12-30-2016 Mena Littlejohn 13:00-0400 [facility] (02783) (Work Phone: ) ALT enzyme 8 U/L (N) 4 - 40 U/L 12-30-2016 Mena hopkins act/vol 13:00-0400 [facility] (14595) (Work Phone: ) Anion gap 3 14 mmol/L (N) 3 - 11 mmol/L 12-30-2016 Mena Littlejohn molar conc 13:00-0400 [facility] (60625) (Work Phone: ) AST enzyme 14 U/L (N) 10 - 34 U/L 12-30-2016 Mena charles act/vol 13:00-0400 [facility] (15504) (Work Phone: ) B/C Ratio 14.1 Ratio (N) 12-30-2016 Mena Littlejohn 13:00-0400 [facility] (58095) (Work Phone: ) Bilirubin mass 0.3 mg/dL (N) 0.1 - 1.2 mg/dL 12-30-2016 H aparna Annetta conc 13:00-0400 [facility] (66124) (Work Phone: ) Calcium mass 9.0 mg/dL (N) 8.5 - 10.2 mg/dL 12-30-2016 Ho aruna Littlejohn conc 13:00-0400 [facility] (05482) (Work Phone: ) Chloride molar 103 mmol/L (N) 95 - 106 mmol/L 12-30-2016 Mena Littlejohn conc 13:00-0400 [facility] (27020) (Work Phone: ) CO2 molar conc 26.0 mmol/L (N) 23 - 29 mmol/L 12-30-2016 Mena Littlejohn 13:00-0400 [facility] (77504) (Work Phone: ) Creatinine mass 0.7 mg/dL (N) 12-30-2016 Mnea hopkins conc 13:00-0400 [facility] (79762) (Work Phone: ) GFR/1.73 sq M 84 ml/min/1.73m2 (N) 12-30-2016 Mena [place] predicted among 13:00-0400 [facility]CON (20191) non-blacks MDRD (Work Phone: vol rate/area ) (S/P/Bld) Globulin 2.9 g/dL (N) 2 - 3.5 g/dL 12-30-2016 Mena charles Calculated mass 13:00-0400 [facility] (85557) conc (S) (Work Phone: ) Glucose mass 78 mg/dL (N) 60 - 125 mg/dL 12-30-2016 Deepak rothman Annetta conc 13:00-0400 [facility] (64122) (Work Phone: ) Osmolality 275 mOsmo (N) 12-30-2016 Mena Littlejohn 13:00-0400 [facility] (82312) (Work Phone: ) Potassium molar 4.1 mmol/L (N) 3.7 - 5.2 mmol/L 12-30-2016 Mena Littlejohn conc 13:00-0400 [facility] (84151) (Work Phone: ) Protein mass 6.4 g/dL (N) 6.4 - 8.3 g/dL 12-30-2016 Deepak Littlejohn conc 13:00-0400 [facility] (40257) (Work Phone: ) Sodium molar 139 mmol/L (N) 135 - 145 mmol/L 12-30-2016 H aparna Annetta conc 13:00-0400 [facility] (89950) (Work Phone: ) Urea nitrogen 10 mg/dL (N) 7 - 20 mg/dL 12-30-2016 Mena Littlejohn mass conc 13:00-0400 [facility]CTOR[facility] RINCON (80445) (Work Phone: ) cbc with differential on 2016-12-30 Baso ABS# 0.0 K/ul (N) 12-30-2016 Mena Littlejohn 13:00-0400 [facility]INCON ([id number]) (Work Phone: ) Basophils/100 0.2 % (N) 0.5 - 1 % 12-30-2016 Mena aparicio WBC Auto (Bld) 13:00-0400 [facility]CTORIA RINCON (51306) (Work Phone: ) Eos ABS# 0.3 K/ul (N) 12-30-2016 Mena Littlejohn 13:00-0400 [facility]CTORIA RINCON ([id number]) (Work Phone: ) Eosinophils/100 3.1 % (N) 1 - 4 % 12-30-2016 Mena Littlejohn WBC Auto (Bld) 13:00-0400 [facility] (49682) (Work Phone: ) Erythrocyte 16.1 % (N) 11.6 - 14.6 % 12-30-2016 Mena Littlejohn distribution 13:00-0400 [facility] (07171) width Auto Ratio (Work Phone: (RBC) ) Hematocrit Auto 42.9 % (N) 36.1 - 50.3 % 12-30-2016 Sinan Littlejohn Volume Fraction 13:00-0400 [facility] (06395) (Bld) (Work Phone: ) Hemoglobin mass 14.0 g/dL (N) 12.1 - 17.2 g/dL 12-30-2016 Mena Littlejohn conc (Bld) 13:00-0400 [facility] (34779) (Work Phone: ) Lymphocytes Auto 3.32 10*3/uL (N) 0.9 - 2.9 12-30-2016 Sinan Littlejohn #/vol (Bld) 10*3/uL 13:00-0400 [facility] (08488) (Work Phone: ) Lymphocytes/100 36.2 % (N) 20 - 40 % 12-30-2016 Mena Littlejohn WBC Auto (Bld) 13:00-0400 [facility]CTORIA RINCON (06525) (Work Phone: ) MCH Auto Entitic 27.3 pg (N) 27 - 31 pg 12-30-2016 Deepak Littlejohn mass (RBC) 13:00-0400 VICTORIA RINCON (30285) (Work Phone: ) MCHC Auto mass 32.6 pg (N) 12-30-2016 Mena Kimball ton conc (RBC) 13:00-0400 [facility] RINCON (31709) (Work Phone: ) MCV Auto Entitic 83.6 fL (N) 80 - 100 fL 12-30-2016 Slime Littlejohn volume (RBC) 13:00-0400 VICTORIA RINCON (68465) (Work Phone: ) [place] ABS# 1.0 K/ul (N) 12-30-2016 Mena Littlejohn 13:00-0400 VICTORIA RINCON ([id number]) (Work Phone: ) Monocytes/100 10.4 % (N) 2 - 8 % 12-30-2016 Mena aparicio WBC Auto (Bld) 13:00-0400 VICTORIA RINCON ([id number]) (Work Phone: ) Neut ABS# 4.59 K/ul (N) 12-30-2016 Mena Littlejohn 13:00-0400 VICTORIA RINCON ([id number]) (Work Phone: ) Neutrophils/100 50.1 % (N) 40 - 60 % 12-30-2016 Mena Littlejohn WBC Auto (Bld) 13:00-0 VICTORIA RINCON ([id number]) (Work Phone: ) Platelets Auto 333 10*3/uL (N) 150 - 450 12-30-2016 Mena Littlejohn #/vol (Bld) 10*3/uL 13:00-0400 VICTORIA RINCON ([id number]) (Work Phone: ) RBC Auto #/vol 5.13 10*6/uL (N) 4.2 - 6.1 12-30-2016 Deepak Littlejohn (Bld) 10*6/uL 13:00-0 VICTORIA RINCON ([id number]) (Work Phone: ) WBC Auto #/vol 9.16 10*3/uL (N) 3.5 - 10.5 12-30-2016 Slime Littlejohn (Bld) 10*3/uL 13:00-0 VICTORIA RINCON ([id number]) (Work Phone: ) urine culture on 2016-11-11 Complete Growth of aerobe (no code) 11-11-2016 Mena charles sent to ref lab 13:00 VICTORIA RINCON ([id number]) Growth of aerobe (Work Phone: sent to ref lab ) urine culture on 2016-09-11 Complete NO Growth Day 2 (no code) 09-11-2016 Mena Cran ston NO Growth Day 2 13:00-0400 VICTORIA RINCON ([id number]) (Work Phone: ) Preliminary NO Growth Day 1 (no code) 09-11-2016 Mena Branham ston NO Growth Day 1 13:00-0400 VICTORIA RINCON ([id number]) (Work Phone: ) c a/b flu on 2016-08-09 Influenza A Scr Negative (no code) 08-09-2016 Mena Branham ston Negative 13:00-0400 VICTORIA RINCON ([id number]) (Work Phone: ) Influenza B Scr Negative (no code) 08-09-2016 Mena Branham ston Negative 13:00-0400 VICTORIA RINCON ([id number]) (Work Phone: ) c rap a sc on 2016-01-26 Strep A Negative (no code) 01-26-2016 Mena Littlejohn Negative 13:00-0400 VICTORIA RINCON ([id number]) (Work Phone: ) lipid on 2016-01-01 Cholesterol in 121 mg/dL (N) 01-01-2016 Mena kyle LDL mass conc 13:00-0400 VICTORIA RINCON ([id number]) (Work Phone: ) urine culture on 2015-12-27 Complete NO Growth Day 2 (no code) 12-27-2015 Mena Branham crystaln NO Growth Day 2 13:00-0400 VICTORIA RINCON ([id number]) (Work Phone: ) Preliminary NO Growth Day 1 (no code) 12-27-2015 Mena Branham crystaln NO Growth Day 1 13:00-0400 VICTORIA RINCON ([id number]) (Work Phone: ) comp metabolic on 2015-09-23 ALK PHOS 104 U/L (N) 09-23-2015 Mena Littlejohn 13:00-0400 VICTORIA RINCON ([id number]) (Work Phone: ) Anion gap 3 11 mmol/L (N) 3 - 11 mmol/L 09-23-2015 Mena Littlejohn molar conc 13:00-0400 VICTORIA RINCON ([id number]) (Work Phone: ) B/C Ratio 15.6 Ratio (N) 09-23-2015 Mena Littlejohn 13:00-0400 VICTORIA RINCON ([id number]) (Work Phone: ) Bilirubin mass 0.3 mg/dL (N) 0.1 - 1.2 mg/dL 09-23-2015 H aparna Littlejohn conc 13:00-0400 VICTORIA RINCON ([id number]) (Work Phone: ) Globulin 2.5 g/dL (N) 2 - 3.5 g/dL 09-23-2015 Mena charles Calculated mass 13:00-0400 VICTORIA RINCON ([id number]) conc (S) (Work Phone: ) cbc with differential on 2015-09-23 Baso ABS# 0.0 K/ul (N) 09-23-2015 Mena Littlejohn 13:00-0400 VICTORIA RINCON ([id number]) (Work Phone: ) Basophils/100 0.4 % (N) 0.5 - 1 % 09-23-2015 Mena aparicio WBC Auto (Bld) 13:00-0400 VICTORIA RINCON ([id number]) (Work Phone: ) Eos ABS# 0.2 K/ul (N) 09-23-2015 Mena Littlejohn 13:00-0400 VICTORIA RINCON ([id number]) (Work Phone: ) Erythrocyte 15.6 % (N) 11.6 - 14.6 % 09-23-2015 Mena Littlejohn distribution 13:00-0400 VICTORIA RINCON ([id number]) width Auto Ratio (Work Phone: (RBC) ) Hematocrit Auto 44.3 % (N) 36.1 - 50.3 % 09-23-2015 Sinan Littlejohn Volume Fraction 13:00-0400 VICTORIA RINCON ([id number]) (Bld) (Work Phone: ) Lymphocytes Auto 2.92 10*3/uL (N) 0.9 - 2.9 09-23-2015 Ho aruna Annetta #/vol (Bld) 10*3/uL 13:00-0400 VICTORIA RINCON ([id number]) (Work Phone: ) Lymphocytes/100 37.6 % (N) 20 - 40 % 09-23-2015 Mena Littlejohn WBC Auto (Bld) 13:00-0400 VICTORIA RINCON ([id number]) (Work Phone: ) MCH Auto Entitic 27.9 pg (N) 27 - 31 pg 09-23-2015 Deepak Littlejohn mass (RBC) 13:00-0400 VICTORIA RINCON ([id number]) (Work Phone: ) MCHC Auto mass 32.5 pg (N) 09-23-2015 Mena Kimball ton conc (RBC) 13:00-0400 VICTORIA RINCON ([id number]) (Work Phone: ) MCV Auto Entitic 85.9 fL (N) 80 - 100 fL 09-23-2015 Slime Littlejohn volume (RBC) 13:00-0400 VICTORIA RINCON ([id number]) (Work Phone: ) [place] ABS# 0.8 K/ul (N) 09-23-2015 Mena Littlejohn 13:00-0400 VICTORIA RINCON ([id number]) (Work Phone: ) Neut ABS# 3.83 K/ul (N) 09-23-2015 Mena Littlejohn 13:00-0400 VICTORIA RINCON ([id number]) (Work Phone: ) Neutrophils/100 49.2 % (N) 40 - 60 % 09-23-2015 Mena Littlejohn WBC Auto (Bld) 13:00-0400 VICTORIA RINCON ([id number]) (Work Phone: ) New Analyzer Please note new (no code) 09-23-2015 Mena charles Notice ref ranges 13:00-0400 VICTORIA RINCON ([id number]) starting (Work Phone: 05-28-2015 due to ) implemntation of new five part differential hematolgy analyzer. Please note new ref ranges starting 05-28-2015 due to implemntation of new five part differential hematolgy analyzer. Platelets Auto 254 10*3/uL (N) 150 - 450 09-23-2015 Mena Littlejohn #/vol (Bld) 10*3/uL 13:00-0400 VICTORIA RINCON ([id number]) (Work Phone: ) RBC Auto #/vol 5.16 10*6/uL (N) 4.2 - 6.1 09-23-2015 Deepak stephan Annetta (Bld) 10*6/uL 13:00-0400 VICTORIA RINCON ([id number]) (Work Phone: ) WBC Auto #/vol 7.77 10*3/uL (N) 3.5 - 10.5 09-23-2015 Slime kylee Annetta (Bld) 10*3/uL 13:00-0400 VICTORIA RINCON ([id number]) (Work Phone: ) urine culture on 2015-07-08 Complete >100,000 col/ml (no code) 07-08-2015 Mena hopkins aerobic growth 13:00-0500 VICTORIA RINCON ([id number]) sent to ref lab (Work Phone: >100,000 col/ml ) aerobic growth sent to ref lab lipid on 2015-06-24 Cholesterol in 87 mg/dL (N) 06-24-2015 Mena Kimball ton LDL mass conc 13:00-0500 VICTORIA RINCON ([id number]) (Work Phone: ) comp metabolic on 2015-06-24 ALK PHOS 93 U/L (N) 06-24-2015 Mena Littlejohn 13:00-0500 VICTORIA RINCON ([id number]) (Work Phone: ) Anion gap 3 9 mmol/L (N) 3 - 11 mmol/L 06-24-2015 Mena Littlejohn molar conc 13:00-0500 VICTORIA RINCON ([id number]) (Work Phone: ) B/C Ratio 12.8 Ratio (N) 06-24-2015 Mena Littlejohn 13:00-0500 VICTORIA RINCON ([id number]) (Work Phone: ) Bilirubin mass 0.4 mg/dL (N) 0.1 - 1.2 mg/dL 06-24-2015 H aparna [place] conc 13:00-0500 VICTORIA RINCON ([id number]) (Work Phone: ) Globulin 2.4 g/dL (N) 2 - 3.5 g/dL 06-24-2015 Mena charles Calculated mass 13:00-0500 VICTORIA RINCON ([id number]) conc (S) (Work Phone: ) cbc with differential on 2015-06-24 Baso ABS# 0.1 K/ul (N) 06-24-2015 Mena Littlejohn 13:00-0500 VICTORIA RINCON ([id number]) (Work Phone: ) Basophils/100 0.9 % (N) 0.5 - 1 % 06-24-2015 Mena aparicio WBC Auto (Bld) 13:00-0500 VICTORIA RINCON ([id number]) (Work Phone: ) Eos ABS# 0.4 K/ul (N) 06-24-2015 Mena Littlejohn 13:00-0500 VICTORIA RINCON ([id number]) (Work Phone: ) Erythrocyte 15.4 % (N) 11.6 - 14.6 % 06-24-2015 Mena Littlejohn distribution 13:00-0500 VICTORIA RINCON ([id number]) width Auto Ratio (Work Phone: (RBC) ) Hematocrit Auto 44.6 % (N) 36.1 - 50.3 % 06-24-2015 Sinan Littlejohn Volume Fraction 13:00-0500 VICTORIA RINCON ([id number]) (Bld) (Work Phone: ) Lymphocytes Auto 3.51 10*3/uL (N) 0.9 - 2.9 06-24-2015 Sinan Littlejohn #/vol (Bld) 10*3/uL 13:00-0500 VICTORIA RINCON ([id number]) (Work Phone: ) Lymphocytes/100 42.6 % (N) 20 - 40 % 06-24-2015 Mena Littlejohn WBC Auto (Bld) 13:00-0500 VICTORIA RINCON ([id number]) (Work Phone: ) MCH Auto Entitic 28.4 pg (N) 27 - 31 pg 06-24-2015 Deepak Littlejohn mass (RBC) 13:00-0500 VICTORIA RINCON ([id number]) (Work Phone: ) MCHC Auto mass 32.5 pg (N) 06-24-2015 Mena Kimball ton conc (RBC) 13:00-0500 VICTORIA RINCON ([id number]) (Work Phone: ) MCV Auto Entitic 87.3 fL (N) 80 - 100 fL 06-24-2015 Slime Littlejohn volume (RBC) 13:00-0500 VICTORIA RINCON ([id number]) (Work Phone: ) [place] ABS# 0.8 K/ul (N) 06-24-2015 Mena Littlejohn 13:00-0500 VICTORIA RINCON ([id number]) (Work Phone: ) Neut ABS# 3.43 K/ul (N) 06-24-2015 Mena Littlejohn 13:00-0500 VICTORIA RINCON ([id number]) (Work Phone: ) Neutrophils/100 41.6 % (N) 40 - 60 % 06-24-2015 Mena Littlejohn WBC Auto (Bld) 13:00-0500 VICTORIA RINCON ([id number]) (Work Phone: ) New Analyzer Please note new (no code) 06-24-2015 Mena charles Notice ref ranges 13:00-0500 VICTORIA RINCON ([id number]) starting (Work Phone: 05-28-2015 due to ) implemntation of new five part differential hematolgy analyzer. Please note new ref ranges starting 05-28-2015 due to implemntation of new five part differential hematolgy analyzer. Platelets Auto 269 10*3/uL (N) 150 - 450 06-24-2015 Mena Littlejohn #/vol (Bld) 10*3/uL 13:00-0500 VICTORIA RINCON ([id number]) (Work Phone: ) RBC Auto #/vol 5.11 10*6/uL (N) 4.2 - 6.1 06-24-2015 Deepak Littlejohn (Bld) 10*6/uL 13:00-0500 VICTORIA RINCON ([id number]) (Work Phone: ) WBC Auto #/vol 8.23 10*3/uL (N) 3.5 - 10.5 06-24-2015 Slime Littlejohn (Bld) 10*3/uL 13:00-0500 VICTORIA RINCON ([id number]) (Work Phone: ) Vital Signs Vital Sign Value Interpretation Reference Date Time Care [facility] Facility (Normalized) (Normalized) Range BMI (Body Mass 43.7 kg/m2 (no code) 15 - 25 kg/m2 10-06-2017 Sinan Littlejohn Index) 13:00-0400 VICTORIA Thompson MD ([id number]) (Work Phone: ) BMI (Body Mass 42.4 kg/m2 (no code) 15 - 25 kg/m2 08-25-2017 Ho aruna Feliciano Annetta Index) 13:00-0400 VICTORIA Thompson MD ([id number]) (Work Phone: ) BMI (Body Mass 39.6 kg/m2 (no code) 15 - 25 kg/m2 05-23-2017 Ho aruna Feliciano Annetta Index) 13:00-0500 VICTORIA Thompson MD ([id number]) (Work Phone: ) BMI (Body Mass 38.3 kg/m2 (no code) 15 - 25 kg/m2 03-10-2017 Ho aruna Feliciano [place] Index) 13:00-0400 VICTORIA Thompson MD ([id number]) (Work Phone: ) BMI (Body Mass 38.8 kg/m2 (no code) 15 - 25 kg/m2 02-07-2017 Ho aruna Feliciano [place] Index) 13:00-0400 VICTORIA Thompson MD ([id number]) (Work Phone: ) BMI (Body Mass 38.3 kg/m2 (no code) 15 - 25 kg/m2 12-30-2016 Ho aruna [place]phan [place] Index) 13:00-0400 [id number] VICTORIA RINCON ([id number]) (Work Phone: ) Body 98.6 [degF] (N) 97.8 - 99.0 03-10-2017 Mena Carrolkamran saroj [place] Temperature [degF] 13:00-0400 [id number] [facility] ([id number]) (Work Phone: ) Body 100.4 [degF] (N) 97.8 - 99.0 08-09-2016 Mena Carrol sandeep Littlejohn Temperature [degF] 13:00-0400 52555 [facility] ([id number]) (Work Phone: ) Body 98.6 [degF] (N) 97.8 - 99.0 10-23-2014 Mena Sotelostephan BranhamAnnetta Temperature [degF] 13:00-0400 [id number] [facility] ([id number]) (Work Phone: ) Body 98.6 [degF] (N) 97.8 - 99.0 03-20-2013 Mena Carrolkamran saroj [place] Temperature [degF] 13:00-0500 74641 MD [facility] ([id number]) (Work Phone: ) Body 98.6 [degF] (N) 97.8 - 99.0 08-22-2012 Mena Carrolkamran saroj Menastephan [place]netta Temperature [degF] 13:00-0400 23843 [facility] ([id number]) (Work Phone: ) Body 96.8 [degF] (N) 97.8 - 99.0 05-22-2012 Mena Carrolkamran [place]phan [place] Temperature [degF] 13:00-0500 22551 MD [facility] ([id number]) (Work Phone: ) Blood Pressure 122/ (N,N) Systolic: 90 - 01-05-2018 Mena Littlejohn 74mm[Hg] 119 mm[Hg] 13:00-0400 87206 , LLC ([id number]) (Work Diastolic: 60 Phone: - 79 mm[Hg] ) Blood Pressure 134/ (N,N) Systolic: - 12-22-2017 Mena Littlejohn 88mm[Hg] 119 mm[Hg] 13:00-0400 [id number] , LLC ([id number]) (Work Diastolic: 60 Phone: - 79 mm[Hg] ) Blood Pressure 116/ (N,N) Systolic: 10-06-2017 Mena Littlejohn 72mm[Hg] 119 mm[Hg] 13:00-0400 74106 , LLC ([id number]) (Work Diastolic: 60 Phone: - 79 mm[Hg] ) Blood Pressure 128/ (N,N) Systolic: 08-25-2017 Mena Littlejohn 74mm[Hg] 119 mm[Hg] 13:00-0400 19589 , LLC ([id number]) (Work Diastolic: 60 Phone: - 79 mm[Hg] ) Blood Pressure 106/ (N,N) Systolic: 05-23-2017 Mena Littlejohn 60mm[Hg] 119 mm[Hg] 13:00-0500 [id number] , LLC ([id number]) (Work Diastolic: 60 Phone: - 79 mm[Hg] ) Blood Pressure 144/ (N,N) Systolic: 03-10-2017 Mena Littlejohn 82mm[Hg] 119 mm[Hg] 13:00-0400 45397 , LLC ([id number]) (Work Diastolic: 60 Phone: - 79 mm[Hg] ) Blood Pressure 126/ (N,N) Systolic: 02-07-2017 Mena Littlejohn 72mm[Hg] 119 mm[Hg] 13:00-0400 [id number] , LLC ([id number]) (Work Diastolic: 60 Phone: - 79 mm[Hg] ) Blood Pressure 122/ (N,N) Systolic: 90 - 12-30-2016 Mena Littlejohn 84mm[Hg] 119 mm[Hg] 13:00040 Jay RINCON LLC ([id number]) (Work Diastolic: 60 Phone: - 79 mm[Hg] ) Height 152 cm (N) cm 12-22-2017 Mena Littlejohn 13:00-0400 Jay [facility] ([id number]) (Work Phone: ) Height 152 cm (N) cm 10-06-2017 Mena Littlejohn 13:00-0400 Jay [facility] ([id number]) (Work Phone: ) Height 152 cm (N) cm 08-25-2017 Mena Littlejohn 13:00-0400 Jay [facility] ([id number]) (Work Phone: ) Height 152 cm (N) cm 05-23-2017 Mena Littlejohn 13:00-0500 Jay [facility] ([id number]) (Work Phone: ) Height 152 cm (N) cm 03-10-2017 Mena Littlejohn 13:00-0400 Jay [facility] ([id number]) (Work Phone: ) Height 152 cm (N) cm 02-07-2017 Mena Littlejohn 13:00-0400 Jay [facility] ([id number]) (Work Phone: ) Height 152 cm (N) cm 12-30-2016 Mena Littlejohn 13:00-0400 Jay [facility] ([id number]) (Work Phone: ) Height 152 cm (N) cm 10-19-2016 Mena Littlejohn 13:00-0400 Jay [facility] ([id number]) (Work Phone: ) Height 152 cm (N) cm 08-09-2016 Mena braun [place] 13:00-0400 33020 MD [facility] ([id number]) (Work Phone: ) Height 152 cm (N) cm 07-20-2016 Mena Littlejohn 13:00-0500 Jay [facility] ([id number]) (Work Phone: ) Height 152 cm (N) cm 05-27-2016 Mena Littlejohn Tavares aparna Littlejohn 13:00-0500 Jay [facility] ([id number]) (Work Phone: ) Height 152 cm (N) cm 04-02-2016 Mena Littlejohn 13:00-0500 95395 MD [facility] ([id number]) (Work Phone: ) Height 152 cm (N) cm 03-18-2016 Mena Littlejohn 13:00-0400 [id number] RINCON [facility] ([id number]) (Work Phone: ) Height 152 cm (N) cm 01-26-2016 Mena Littlejohn 13:00-0400 [id number] RINCON [facility] ([id number]) (Work Phone: ) Height 152 cm (N) cm 01-01-2016 Mena Littlejohn 13:00-0400 [id number] RINCON [facility] ([id number]) (Work Phone: ) Height 152 cm (N) cm 12-25-2015 Mena Littlejohn 13:00-0400 Jay [facility]INCON [facility] ([id number]) (Work Phone: ) Height 152 cm (N) cm 12-08-2015 Mena Littlejohn 13:00-0400 Jay [facility] ([id number]) (Work Phone: ) Height 152 cm (N) cm 09-23-2015 Mena Littlejohn 13:00-0400 [id number] RINCON [facility] ([id number]) (Work Phone: ) Height 152 cm (N) cm 06-19-2015 Mena Littlejohn Tavares aparna Littlejohn 13:00-0500 Jay [facility]INCON [facility] ([id number]) (Work Phone: ) Height 152 cm (N) cm 05-19-2015 Mena Littlejohn Tavares aparna Littlejohn 13:00-0500 73791 MD [facility] ([id number]) (Work Phone: ) Height 152 cm (N) cm 04-28-2015 Mena Littlejohn 13:00-0500 [id number] MD [facility] ([id number]) (Work Phone: ) Height 152 cm (N) cm 03-18-2015 Mena Littlejohn 13:00-0500 Jay [facility]CON [facility] ([id number]) (Work Phone: ) Height 152 cm (N) cm 02-27-2015 Mena Littlejohn 13:00-0400 Jay [facility] ([id number]) (Work Phone: ) Height 152 cm (N) cm 02-13-2015 Mena Littlejohn 13:00-0400 Jay [facility]CON [facility] ([id number]) (Work Phone: ) Height 152 cm (N) cm 11-18-2014 Mena Littlejohn 13:00-0400 Jay [facility] ([id number]) (Work Phone: ) Height 147 cm (N) cm 10-23-2014 Mena Littlejohn 13:00-0400 Jay [facility] ([id number]) (Work Phone: ) Height 149 cm (N) cm 10-02-2014 Mena Littlejohn 13:00-0400 Jay [facility] ([id number]) (Work Phone: ) Height 149 cm (N) cm 09-23-2014 Mena Littlejohn 13:00-0400 Jay [facility]CON [facility] ([id number]) (Work Phone: ) Height 149 cm (N) cm 07-08-2014 Mena Littlejohn Tavares aparna Littlejohn 13:00-0500 [id number] RINCON [facility] ([id number]) (Work Phone: ) Height 149 cm (N) cm 05-31-2014 Mena Littlejohn Tavares aparna Littlejohn 13:00-0500 Jay [facility]INCON [facility] ([id number]) (Work Phone: ) Height 149 cm (N) cm 04-18-2014 Mena Littlejohn Tavares aparna Littlejohn 13:00-0500 Jay [facility]CON [facility] ([id number]) (Work Phone: ) Height 149 cm (N) cm 03-05-2014 Mena Littlejohn 13:00-0400 Jay [facility]INCON [facility] ([id number]) (Work Phone: ) Height 149 cm (N) cm 01-29-2014 Mena Littlejohn 13:00-0400 [id number] RINCON [facility] ([id number]) (Work Phone: ) Height 149 cm (N) cm 10-23-2013 Mena Littlejohn 13:00-0400 Jay [facility]CON [facility] ([id number]) (Work Phone: ) Height 149 cm (N) cm 10-11-2013 Mena Littlejohn 13:00-0400 Jay [facility]CON [facility] ([id number]) (Work Phone: ) Height 149 cm (N) cm 08-20-2013 Mena Littlejohn 13:00-0400 [id number] RINCON [facility] ([id number]) (Work Phone: ) Height 149 cm (N) cm 03-07-2013 Mena Littlejohn 13:00-0400 Jay [facility]CON [facility] ([id number]) (Work Phone: ) Height 149 cm (N) cm 01-22-2013 Mena Littlejohn 13:00-0400 Jay [facility]CON [facility] ([id number]) (Work Phone: ) Height 149 cm (N) cm 08-22-2012 Mena Littlejohn 13:00-0400 28786 VICTORIA RINCON ([id number]) (Work Phone: ) Height 149 cm (N) cm 08-14-2012 Mena Littlejohn 13:00-0400 [id number] MD, LLC ([id number]) (Work Phone: ) Height 149 cm (N) cm 04-17-2012 Mena Littlejohn 13:00-0500 [id number] MD LLC ([id number]) (Work Phone: ) Height 149 cm (N) cm 08-11-2011 Mena Littlejohn 13:00-0400 [id number] [facility]INCON [facility] ([id number]) (Work Phone: ) Height 149 cm (N) cm 06-01-2011 Mena Littlejohn 13:00-0500 Jay [facility]CON [facility] ([id number]) (Work Phone: ) Height 149 cm (N) cm 05-18-2011 Mena Littlejohn 13:00-0500 [id number] [facility]CON [facility] ([id number]) (Work Phone: ) Pulse (Heart 88 /min (N) 60 - 100 /min 01-05-2018 Mena Littlejohn Rate) 13:00-0400 VICTORIA Thompson MD ([id number]) (Work Phone: ) Pulse (Heart 104 /min (N) 60 - 100 /min 12-22-2017 Mena Feliciano Annetta Rate) 13:00-0400 VICTORIA Thompson MD ([id number]) (Work Phone: ) Pulse (Heart 83 /min (N) 60 - 100 /min 10-06-2017 Mena Feliciano [place] Rate) 13:00-0400 VICTORIA Thompson MD ([id number]) (Work Phone: ) Pulse (Heart 93 /min (N) 60 - 100 /min 08-25-2017 Mena Poncho [place] Mena Annetta Rate) 13:00-0400 10688 VICTORIA RINCON ([id number]) (Work Phone: ) Pulse (Heart 76 /min (N) 60 - 100 /min 05-23-2017 Mena Poncho [place] Mena Annetta Rate) 13:00-0500 30695 VICTORIA RINCON ([id number]) (Work Phone: ) Pulse (Heart 91 /min (N) 60 - 100 /min 03-10-2017 Mena Cr [place] Mena Annetta Rate) 13:00-0400 69569 VICTORIA RINCON ([id number]) (Work Phone: ) Pulse (Heart 95 /min (N) 60 - 100 /min 02-07-2017 Mena Poncho aparicio Mena Annetta Rate) 13:00-0400 [id number] Dexter MD ([id number]) (Work Phone: ) Pulse (Heart 83 /min (N) 60 - 100 /min 12-30-2016 Mena Poncho [place] Mena [place] Rate) 13:00-0400 [id number] Carlson MD ([id number]) (Work Phone: ) Pulse Oximetry 95 % (N) 95 - 100 % 01-05-2018 Mena Pitt araceli Feliciano Annetta 13:00-0400 [id number] Dexter MD ([id number]) (Work Phone: ) Pulse Oximetry 90 % (N) 95 - 100 % 12-22-2017 Mena Sweetie [place] Mena Annetta 13:00-0400 71373 MD LLC ([id number]) (Work Phone: ) Pulse Oximetry 94 % (N) 95 - 100 % 10-06-2017 Mena Sweetie charles Mena Annetta 13:00-0400 [id number] Carlson MD ([id number]) (Work Phone: ) Pulse Oximetry 93 % (N) 95 - 100 % 08-25-2017 Mena Vocational Technical Education Director [place] Mena Annetta 13:00-0400 Jay [facility]CON [facility] ([id number]) (Work Phone: ) Pulse Oximetry 97 % (N) 95 - 100 % 05-23-2017 Mena Littlejohn 13:00-0500 Jay [facility]CON [facility] ([id number]) (Work Phone: ) Pulse Oximetry 96 % (N) 95 - 100 % 03-10-2017 Mena Littlejohn 13:00-0400 Jay RINCON, LLC ([id number]) (Work Phone: ) Pulse Oximetry 96 % (N) 95 - 100 % 02-07-2017 Mena Littlejohn 13:00-0400 Jay [facility] ([id number]) (Work Phone: ) Pulse Oximetry 96 % (N) 95 - 100 % 12-30-2016 Mena Littlejohn 13:00-0400 [facility] ([id number]) (Work Phone: ) Waist 107 cm (N) 10-02-2014 Mena gabrielston Circumference 13:00-0400 Jay RINCON, LLC ([id number]) (Work Phone: ) Weight 103 kg (N) kg 01-05-2018 Mena Chapin aparna Annetta 13:00-0400 [facility] ([id number]) (Work Phone: ) Weight NaN kg (N) kg 12-22-2017 Menastephan Chapin aparna Littlejohn 13:00-0400 [facility] ([id number]) (Work Phone: ) Weight 102 kg (N) kg 10-06-2017 Mena Annetta Tavares aparna Littlejohn 13:00-0400 [facility] ([id number]) (Work Phone: ) Weight 98 kg (N) kg 08-25-2017 Mena Littlejohn Tavares aparna Littlejohn 13:00-0400 Jay [facility] ([id number]) (Work Phone: ) Weight 92 kg (N) kg 05-23-2017 Mena Chapin aparna Littlejohn 13:00-0500 [id number] [facility]INCON [facility] ([id number]) (Work Phone: ) Weight 89 kg (N) kg 03-10-2017 Mena Chapin aparna Littlejohn 13:00-0400 [id number] MD LLC ([id number]) (Work Phone: ) Weight 90 kg (N) kg 02-07-2017 Mena Chapin aparna Annetta 13:00-0400 15546 , LLC ([id number]) (Work Phone: ) Weight 89 kg (N) kg 12-30-2016 Mena Chapin aparna Littlejohn 13:00-0400 Jay [facility]CON [facility] ([id number]) (Work Phone: ) Weight NaN kg (N) kg 10-19-2016 Mena Chapin aparna Littlejohn 13:00-0400 [id number] [facility]INCON [facility] ([id number]) (Work Phone: ) Weight 93 kg (N) kg 08-09-2016 Mena Chapin aparna Littlejohn 13:00-0400 [id number] [facility]CON [facility] ([id number]) (Work Phone: ) Weight 93 kg (N) kg 07-20-2016 Mena Chapin aparna Littlejohn 13:00-0500 Jay [facility]CON [facility] ([id number]) (Work Phone: ) Weight 91 kg (N) kg 05-27-2016 Mena Chapin aparna Littlejohn 13:00-0500 [id number] MD LLC ([id number]) (Work Phone: ) Weight NaN kg (N) kg 04-29-2016 Mena Littlejohn Tavares aparna Littlejohn 13:00-0500 Jay [facility]CON [facility] ([id number]) (Work Phone: ) Weight 89 kg (N) kg 04-02-2016 Mena Littlejohn Tavares aparna Littlejohn 13:00-0500 Jay [facility]CON [facility] ([id number]) (Work Phone: ) Weight 89 kg (N) kg 03-18-2016 Mena Chapin aparna Littlejohn 13:00-0400 56146 , LLC ([id number]) (Work Phone: ) Weight 92 kg (N) kg 01-26-2016 Mena Chapin aparna Littlejohn 13:00-0400 [id number] , LLC ([id number]) (Work Phone: ) Weight 93 kg (N) kg 01-01-2016 Mena Chapin aparna Littlejohn 13:00-0400 36138 , LLC ([id number]) (Work Phone: ) Weight 93 kg (N) kg 12-25-2015 Mena Chapin aparna Littlejohn 13:00-0400 67020 , LLC ([id number]) (Work Phone: ) Weight 93 kg (N) kg 09-23-2015 Mena Chapin aparna Littlejohn 13:00-0400 64520 , LLC ([id number]) (Work Phone: ) Weight 95 kg (N) kg 06-19-2015 Mena Chapin aparna Littlejohn 13:00-0500 [id number] , LLC ([id number]) (Work Phone: ) Weight 95 kg (N) kg 05-19-2015 Menastephan Chapin aparna Littlejohn 13:00-0500 03945 , LLC ([id number]) (Work Phone: ) Weight 96 kg (N) kg 04-28-2015 Mena Chapin aparna Littlejohn 13:00-0500 [id number] , LLC ([id number]) (Work Phone: ) Weight 97 kg (N) kg 03-18-2015 Mena Annetta H aparna Littlejohn 13:00-0500 [id number] RINCON, LLC ([id number]) (Work Phone: ) Weight 96 kg (N) kg 02-27-2015 Mena Branhamsandeep Chapin [place] Littlejohn 13:00-0400 28541 MD LLC ([id number]) (Work Phone: ) Weight 96 kg (N) kg 02-13-2015 Mena Chapin aparna Littlejohn 13:00-0400 10161 , LLC ([id number]) (Work Phone: ) Weight 95 kg (N) kg 11-18-2014 Mena Chapin aparna Littlejohn 13:00-0400 66883 , LLC ([id number]) (Work Phone: ) Weight 94 kg (N) kg 10-23-2014 Mena Chapin aparna Littlejohn 13:00-0400 22535 , LLC ([id number]) (Work Phone: ) Weight 94 kg (N) kg 10-02-2014 Mena Chapin aparna Littlejohn 13:00-0400 24950 , LLC ([id number]) (Work Phone: ) Weight 95 kg (N) kg 09-23-2014 Mena Chapin aparna Littlejohn 13:00-0400 92428 , LLC ([id number]) (Work Phone: ) Weight 96 kg (N) kg 07-08-2014 Mena Chapin aparna Littlejohn 13:00-0500 56740 , LLC ([id number]) (Work Phone: ) Weight 91 kg (N) kg 05-31-2014 Mena Chapin aparna Littlejohn 13:00-0500 86205 , LLC ([id number]) (Work Phone: ) Weight 93 kg (N) kg 04-18-2014 Mena Chapin aparna Littlejohn 13:00-0500 04731 , LLC ([id number]) (Work Phone: ) Weight 91 kg (N) kg 03-05-2014 Mena Chapin aparna Littlejohn 13:00-0400 [id number] RINCON, LLC ([id number]) (Work Phone: ) Weight 92 kg (N) kg 01-29-2014 Mena Chapin aparna Littlejohn 13:00-0400 09676 , LLC ([id number]) (Work Phone: ) Weight 92 kg (N) kg 10-23-2013 Mena Chapin aparna Littlejohn 13:00-0400 Jay RINCON, LLC ([id number]) (Work Phone: ) Weight 92 kg (N) kg 10-11-2013 Mena Chapin aparna Littlejohn 13:00-0400 Jay RINCON, LLC ([id number]) (Work Phone: ) Weight 92 kg (N) kg 09-17-2013 Mena Littlejohn Tavares aparna Littlejohn 13:00-0400 Jay [facility] ([id number]) (Work Phone: ) Weight NaN kg (N) kg 08-27-2013 Mena Littlejohn Tavares aparna Littlejohn 13:00-0400 Jay RINCON, [facility] ([id number]) (Work Phone: ) Weight 89 kg (N) kg 08-20-2013 Mena Annetta Tavares aparna Littlejohn 13:00-0400 Jay RINCON, LLC ([id number]) (Work Phone: ) Weight NaN kg (N) kg 07-10-2013 Mena Chapin aparna Littlejohn 13:00-0500 Jay [facility] ([id number]) (Work Phone: ) Weight 86 kg (N) kg 03-20-2013 Mena Annetta Tavares aparna Littlejohn 13:00-0500 Jay RINCON, [facility] ([id number]) (Work Phone: ) Weight 86 kg (N) kg 03-07-2013 Mena Littlejohn Tavares aparna Littlejohn 13:00-0400 [facility] ([id number]) (Work Phone: ) Weight 86 kg (N) kg 01-22-2013 Mena Littlejohn Tavares aparna Littlejohn 13:00-0400 Jay [facility] ([id number]) (Work Phone: ) Weight 82 kg (N) kg 08-22-2012 Mena Littlejohn 13:00-0400 VICTORIA Thompson MD ([id number]) (Work Phone: ) Weight 81 kg (N) kg 08-14-2012 Mena Littlejohn 13:00-0400 VICTORIA Thompson MD ([id number]) (Work Phone: ) Weight 84 kg (N) kg 05-22-2012 Mena Littlejohn 13:00-0500 VICTORIA Thompson MD ([id number]) (Work Phone: ) Weight 82 kg (N) kg 04-17-2012 Mena Littlejohn 13:00-0500 VICTORIA Thompson MD ([id number]) (Work Phone: ) Weight 79 kg (N) kg 12-01-2011 Mena Littlejohn 13:00-0400 VICTORIA Thompson MD ([id number]) (Work Phone: ) Weight 75 kg (N) kg 08-11-2011 Mena Littlejohn 13:00-0400 Jay [facility] ([id number]) (Work Phone: ) Weight 77 kg (N) kg 06-01-2011 Mena Littlejohn 13:00-0500 VICTORIA Thompson MD ([id number]) (Work Phone: ) Weight 78 kg (N) kg 05-18-2011 Mena Littlejohn 13:00-0500 Jay [facility] ([id number]) (Work Phone: ) Interventions No Information Plan of Treatment Normalized Care Care Detail Care Activity Date Care Provider F acility Activity Development of care Obesity - chronic 12-22-2017 Mena cross [id number] Mena Littlejohn MD, plan issue with this LLC ([id number]) (Work patient. The pt has Phone: been counseled about ) diet changes, calorie restriction, and need to exercise. Pt will RTC in every two weeks for weight check.Dyspnea due to obesity - cardiac work-up has been negative.bipolar mood disorder - symptom have been stable on current regimen - pt to continue with psychiatric care, current medications, call if symptoms are starting to return. Development of care Medicare Exam - 10-06-2017 Mena Littlejohn [id number] Mena Littlejohn MD, plan today we discussed LLC ([id number]) (Work the patients past Phone: history, ) immunizations, preventative exams/evaluations - colonoscopy, fecal occult blood testing, routine labs for renal function, glucose, cholesterol, osteoporosis evaluations, cardiovascular testing and cancer screenings. We have also discussed mental health and the signs/symptoms of depression. The patient was advised of home safety evaluations and the need to make sure that as the aging process continues, we need to be aware of different ways to make the home a safer place to reside. The patient has also been counseled that exercise is necessary - and of utmost importance as we age to help decrease fall risk and to maintain independence in the home.Today we discussed the need for the patient to create paperwork for Advanced directives as well as for the patient to provide this office with a copy of her DOPA paperwork for health care surrogate. Development of care Hypertension - well 08-25-2017 Mena kyle [id number] Mena Littlejohn MD, plan controlled - LLC ([id number]) (Work continue with Phone: current medications, ) continue with no added salt diet. Pt has been encouraged to exercise daily.The pt has been advised to call the office if there are any acute concerns about change in blood pressure readings at home.Bipolar mood disorder and anxiety - recommended pt to continue with depakote, olanzepine, effexor and counseling, check depakote level and check hgba1c today as well.Hypothyroidism - pt with chronic hypothyroidism, continue with current medication, will monitor pt to signs or symptoms of lack of adequate supplementation. Pt is to continue with current dose of medication unless directed otherwise. Check labs at regular intervals wither q 3 months or q 6 months based on previous levels of control.Hyperlipidem ia - pt has been counseled about appropriate diet, exercise, and need for low fat food choices. I have discussed the need for the patient to take medications as prescribed. If the patient has negative side effects from the medication, they are to CALL the office and not abruptly discontinue the medication without discussion with a practitioner in the office. We will check labs in 3-6 months for follow up on the patient's chronic medical problem and to assure normal liver response to medications.Cerumen impaction against ear drum on left - recommendation as follows: mineral oil in your ear at night x 1 week then come by clinic for us to look to see if the wax is gone from the left earGERD with cough - pepcid AC over the counter - take at night x 2 weeks - call if cough is not improving. Development of care Hypertension - well 05-23-2017 Mena kyle [id number] Mena Littlejohn MD, plan [employer] ([id number]) (Work continue with Phone: current medications, ) continue with no added salt diet. Pt has been encouraged to exercise daily.The pt has been advised to call the office if there are any acute concerns about change in blood pressure readings at home.Hypothyroidism - pt with chronic hypothyroidism, continue with current medication, will monitor pt to signs or symptoms of lack of adequate supplementation. Pt is to continue with current dose of medication unless directed otherwise. Check labs at regular intervals wither q 3 months or q 6 months based on previous levels of control.Bipolar-rece nt hospitalization at [facility] with pt residing at - continue with current management. Defer Bipolar treatment to psychiatry. Development of care Dysuria-UA 03-10-2017 Mena Littlejohn [phone] Mena Littlejohn MD, plan positive-will [employer] ([id number]) (Work culture and treat as Phone: appropriate URI with ) persistent cough - Pt advised to increase fluids, vitamin C. Discussed natural and expected course of this diagnosis and need to alert me if symptoms do not follow expected course, or if any worse. RX sent to patient's pharmacy. Development of care [id number] 02-07-2017 Mena hopkins [id number] Mena Littlejohn MD, plan [employer] ([id number]) (Work changes-recommend Phone: MRI brain for ) further evaluation-also discussed eye exam Development of care Hypertension - well 12-30-2016 Mena kyle [id number] Mena Littlejohn MD, plan [employer] ([id number]) (Work continue with Phone: current medications, ) continue with no added salt diet. Pt has been encouraged to exercise daily.The pt has been advised to call the office if there are any acute concerns about change in blood pressure readings at home.Hypothyroidism - pt with chronic hypothyroidism, continue with current medication, will monitor pt to signs or symptoms of lack of adequate supplementation. Pt is to continue with current dose of medication unless directed otherwise. Check labs at regular intervals wither q 3 months or q 6 months based on previous levels of control.Bipolar-chec k depakote level today SCREENINGMAMMOGRAPHY Goal: no information Mena Littlejohn [phone] Mena Littlejohn MD, [employer] SCREENINGMAMMOGRAPHY [employer] ([id number]) (Wo rk DIGITAL Notes: Phone: ) no information no information no information Mena Littlejohn [phone] Mena Littlejohn MD, [employer] ([id number]) (Work Phone: ) Goals Patient Goal Desired Goal no information no information Social History Normalized Code Original Code Date Value no information no information 07-03-2013 Denies Use no information no information 12-15-2010 No no information no information 08-01-2018 Y - SURGERIES R /T Sex Assigned At Sex Assigned At no information F emale Functional Status The data below is from unstructured sourcesNo functional status information available.No functional status results.No functional status results.No functional status results.No functional status results.No functional status results.No functional status results.No functional status information available.No functional status information available.No functional status information available.No functional status information available.No Functional Status dataNo Functional Status dataNo functional status information availabl e.No functional status information available.No functional status information av ailable.No functional status information available.No functional status informat ion available.No functional status information available.No Functional Status da Aleksander Functional Status dataNo Functional Status dataNo Functional Status dataNo Functional Status dataNo Functional Status dataNo Functional Status dataNo Funct ional Status dataNo Functional Status dataNo Functional Status dataNo Functional Status information availableNo Functional Status information available Mental Status The data below is from unstructured sourcesNo Mental Status Information Available Encounters Encounter Normalized Encounter Encounter Diagnosis Care Provi radha Organization Date Type 01-05-2018 ([id number]) Miscellaneous Other obesity due to Mena aparicio (no [facility] no charge excess calories phone) (no phone) 12-07-2018 Discharged Recurring no information (no phone) As cension [facility] (no phone) 02-27-2019 05-01-2018 Discharged Recurring no information TAMMY CONN no organization name - Work Phone: 07-31-2018 TAMMY Falk APRN MAUREEN 07-03-2013 Emergency department no information no name no organization name - patient visit 07-03-2013 10-06-2011 Emergency department no information no name no organization name - patient visit 10-06-2011 NEGATED Evaluation and no information no name no organ ization name 03-31-2017 management of - inpatient 05-12-2017 12-14-2010 Evaluation and no information no name no organ ization name - management of 12-15-2010 inpatient 03-10-2017 Office outpatient Dysuria Michelle Garcia (no [facility] visit 15 minutes phone) (no phone) 02-07-2017 Office outpatient Headache Michelle Garcia (no [facility] visit 15 minutes phone) (no phone) 12-22-2017 Office outpatient Other obesity due to Mena burgos (no [facility] visit 25 minutes excess calories phone) (no phone) 08-25-2017 Office outpatient Atrophy of thyroid Mena Littlejohn (no [facility] visit 25 minutes (acquired) phone) (no phone) 05-23-2017 Office outpatient Essential (primary) Mena Honeycutt n (no [facility] visit 25 minutes hypertension phone) (no phone) 12-30-2016 Office outpatient Essential (primary) Michelle david (no [facility] visit 25 minutes hypertension phone) (no phone) 03-28-2018 Patient encounter no information no name no or ganization name 02-28-2018 Patient encounter no information no name no or ganization name 02-06-2018 Patient encounter no information no name no or ganization name 02-02-2018 Patient encounter no information no name no or ganization name 02-01-2018 Patient encounter no information BEATRIS Johnson APRN no organization name - [employer] Work Phone: 02-02-2018 01-26-2018 Patient encounter no information BEATRIS Johnson APRN no organization name [facility] 11-24-2017 Patient encounter no information no name no or ganization name 11-23-2017 Patient encounter no information no name no or ganization name - 11-24-2017 NEGATED Patient encounter no information no name no or ganization name 11-17-2017 10-31-2017 Patient encounter no information no name no or ganization name 10-18-2017 Patient encounter no information no name no or ganization name - 10-18-2017 10-17-2017 Patient encounter no information no name no or ganization name 09-28-2017 Patient encounter no information no name no or ganization name 09-07-2017 Patient encounter no information no name no or ganization name 08-16-2017 Patient encounter no information no name no or ganization name 08-09-2017 Patient encounter no information no name no or ganization name 07-26-2017 Patient encounter no information no name no or ganization name 06-07-2017 Patient encounter no information no name no or ganization name 03-07-2017 Patient encounter no information no name no or ganization name 02-14-2017 Patient encounter no information no name no or ganization name 01-04-2017 Patient encounter no information no name no or ganization name 12-16-2016 Patient encounter no information no name no or ganization name - 12-29-2016 06-03-2016 Patient encounter no information no name no or ganization name 04-18-2015 Patient encounter no information no name no or ganization name 12-06-2014 Patient encounter no information no name no or ganization name - 12-07-2014 09-13-2014 Patient encounter no information no name no or ganization name - 09-14-2014 08-08-2014 Patient encounter no information no name no or ganization name 06-25-2014 Patient encounter no information no name no or ganization name 02-19-2014 Patient encounter no information no name no or ganization name 10-02-2013 Patient encounter no information no name no or ganization name 05-29-2012 Patient encounter no information no name no or ganization name 07-25-2019 Patient encounter no information ARMANI VALERO MD ( no [facility] procedure phone) [facility] (no phone) 04-10-2019 Patient encounter no information no name no or ganization name procedure 02-27-2019 Patient encounter no information no name no or ganization name procedure 02-26-2019 Patient encounter no information (no phone) Gary germain [facility] (no phone) 02-26-2019 Patient encounter no information no name no or ganization name procedure 02-26-2019 Patient encounter no information no name no or ganization name procedure 12-07-2018 Patient encounter no information no name no or ganization name procedure 12-07-2018 Patient encounter no information no name no or ganization name - procedure 02-25-2019 11-30-2018 Patient encounter no information no name no or ganization name procedure 11-28-2018 Patient encounter no information no name no or ganization name procedure 11-23-2018 Patient encounter no information no name no or ganization name procedure 11-23-2018 Patient encounter no information no name no or ganization name procedure 11-20-2018 Patient encounter no information no name no or ganization name procedure 11-07-2018 Patient encounter no information no name no or ganization name - procedure 11-19-2018 11-02-2018 Patient encounter no information no name no or ganization name procedure 10-26-2018 Patient encounter no information no name no or ganization name procedure 10-24-2018 Patient encounter no information no name no or ganization name procedure 10-17-2018 Patient encounter no information no name no or ganization name procedure 10-03-2018 Patient encounter no information no name no or ganization name procedure 10-03-2018 Patient encounter no information no name no or ganization name procedure 09-21-2018 Patient encounter no information no name no or ganization name procedure 09-14-2018 Patient encounter no information no name no or ganization name procedure 09-14-2018 Patient encounter no information no name no or ganization name procedure 08-21-2018 Patient encounter no information no name no or ganization name procedure 08-01-2018 Patient encounter no information JUAN JOSÉ [facility] no organization name - procedure Phone: 08-01-2018 07-31-2018 Patient encounter no information no name no or ganization name procedure 07-26-2018 Patient encounter no information TAMMY BURGOS no organization name procedure TAMMY REDDY 07-12-2018 Patient encounter no information no name no or ganization name procedure 05-01-2018 Patient encounter no information no name no or ganization name - procedure 07-30-2018 03-31-2017 Patient encounter no information no name no or ganization name procedure 12-22-2016 Patient encounter no information no name no or ganization name - procedure 12-23-2016 12-13-2016 Patient encounter no information no name no or ganization name procedure 12-09-2016 Patient encounter no information no name no or ganization name procedure 12-06-2016 Patient encounter no information no name no or ganization name procedure 12-02-2016 Patient encounter no information no name no or ganization name procedure 11-29-2016 Patient encounter no information no name no or ganization name procedure 11-26-2016 Patient encounter no information no name no or ganization name procedure 11-23-2016 Patient encounter no information no name no or ganization name procedure 11-18-2016 Patient encounter no information no name no or ganization name procedure 11-15-2016 Patient encounter no information no name no or ganization name procedure 11-11-2016 Patient encounter no information no name no or ganization name procedure 11-05-2016 Patient encounter no information no name no or ganization name - procedure 11-06-2016 10-05-2016 Patient encounter no information no name no or ganization name procedure 09-28-2016 Patient encounter no information no name no or ganization name - procedure 09-29-2016 05-26-2011 Patient encounter no information no name no or ganization name procedure 10-06-2017 PPPS, subseq visit no information no name no o rganization name - 10-06-2017 10-06-2017 Encounter for general Routine general no name no organization name adult medical medical examination at examination with a health care facility abnormal findings no information Encounter for other no name no organiz ation name preprocedural examination Medical Equipment The data below is from unstructured sourcesNo Medical Equipment Information available Payers Normalized Payer Value [facility] no information ([id number]) Medicare no information Medicare [id number] ([id number]) Summary Purpose eClinicalWorks SubmissioneClinicalWorks SubmissioneClinicalWorks SubmissioneClinicalWorks SubmissioneClinicalWorks SubmissioneClinicalWorks SubmissioneClinicalWorks SubmissionInterface ExchangeInterface ExchangeInterface ExchangeInterface ExchangeInterface ExchangeInterface Exchange Advance Directives Directive Response Recor ded Date/Time Advance Directives No 6:54am Health Care Power of Front End Drupal Developer No 10/05/16 6:54am Organ Donor No 10/05/16 6:54am Resuscitation Status Full Code 10/05/16 6:54am Directive Response Recor ded Date/Time Advance Directives No 11:29am Health Care Power of Front End Drupal Developer No 07/03/13 11:29am Organ Donor No 07/03/13 11:29am Directive Response Recor ded Date/Time Advance Directives No 6:54am Health Care Power of Front End Drupal Developer No 10/05/16 6:54am Organ Donor No 10/05/16 6:54am Directive Response Recor ded Date/Time Advance Directives No 6:57am Health Care Power of Front End Drupal Developer No 10/18/17 6:57am Organ Donor No 10/18/17 6:57am Resuscitation Status Full Code 10/18/17 6:57am Directive Response Recor ded Date/Time Advance Directives No 9:50am Health Care Power of Front End Drupal Developer No 11/17/17 9:50am Organ Donor No 11/17/17 9:50am Directive Response Recor ded Date/Time Advance Directives No 12:51pm Health Care Power of Front End Drupal Developer No 08/01/18 12:51pm Organ Donor No 08/01/18 12:51pm Resuscitation Status Full Code 08/01/18 12:51pm Advance Directive Response Recorded Date/Time Advance Directives No [facility] 2018 12:51pm Health Care Power of Front End Drupal Developer No August 01, 2018 12:51pm Organ Donor No July 12:51pm Discharge Instructions No hospital discharge instruction information available.No hospital discharge instructions.No hospital discharge instructions.No hospital discharge instructions.No hospital discharge instruction information available.No hospital discharge instruction information available.No hospital discharge instruction information available.Current inpatient/outpatient. Discharge instructions are currently unavailable.No hospital discharge instruction information available. Family History Diagnosis Age At Onset No Family Disease Entered N/A Assessments No Assessments Information Available Condition Codes Effectiv e Dates Other obesity due to excess calories ICD-10: E66.09 ICD-9: 278.00 01/05/2018 Essential (primary) hypertension ICD -10: I10 ICD-9: 401.1 01/05/2018 Shortness of breath ICD-10: R06.02 ICD-9: 786.05 12/22/2017 Bipolar disorder, current episode depressed, moderate ICD-10: F31.32 ICD-9: 296.52 12/22/2017 Vitamin D deficiency, unspecified IC D-10: E55.9 ICD-9: 268.9 12/22/2017 Encounter for immunization ICD-10: Z 23 ICD-9: V03.82 10/06/2017 Encounter for screening mammogram for ma lignant neoplasm of breast ICD-10: Z12.31 ICD-9: V76.12 10/06/2017 Encounter for general adult medical exam ination with abnormal findings ICD-10: Z00.01 ICD-9: V70.0 10/06/2017 Generalized anxiety disorder ICD-10: F41.1 ICD-9: 300.00 08/25/2017 Atrophy of thyroid (acquired) ICD-10 : E03.4 ICD-9: 244.8 08/25/2017 Cough ICD-10: R05 ICD-9: 786.2 08/25/2017 Mixed hyperlipidemia ICD-10: E78.2 ICD-9: 272.4 08/25/2017 Other termite helper (current) drug therapy ICD-10: Z79.899 ICD-9: V58.69 08/25/2017 Gastro-esophageal reflux disease without esophagitis ICD-10: K21.9 ICD-9: 530.81 08/25/2017 Bipolar disorder, in partial remission, most recent episode manic ICD-10: F31.73 ICD-9: 296.45 05/23/2017 Dysuria ICD-10: R30.0 ICD-9: 788.1 03/10/2017 Acute upper respiratory infection, unspecified ICD-10: J06.9 ICD-9: 465.9 03/10/2017 Unspecified visual disturbance ICD-1 0: H53.9 ICD-9: 368.9 02/07/2017 Dizziness and giddiness ICD-10: R42 ICD-9: 780.4 02/07/2017 Headache ICD-10: R51 ICD-9: 784.0 02/07/2017 Encounter for immunization ICD-10: Z 23 ICD-9: V04.81 02/02/2017 Essential (primary) hypertension ICD -10: I10 ICD-9: 401.9 12/30/2016 Hypothyroidism, unspecified ICD-10: E03.9 ICD-9: 244.9 12/30/2016 Allergic rhinitis due to pollen ICD- 10: J30.1 ICD-9: 477.0 10/19/2016 Unspecified fracture of left calcaneus, initial encounter for closed fracture ICD-10: S92.002A ICD-9: 825.0 10/19/2016 Unsteadiness on feet ICD-10: R26.81 ICD-9: 781.2 10/19/2016 Fever, unspecified ICD-10: R50.9 ICD-9: 780.60 08/09/2016 Acute recurrent maxillary sinusitis ICD-10: J01.01 ICD-9: 461.0 08/09/2016 Allergic rhinitis due to pollen ICD- 10: J30.1 ICD-9: 477.9 07/20/2016 Bipolar disorder, current episode manic without psychotic features, moderate ICD-10: F31.12 ICD-9: 296.40 04/29/2016 Acute laryngopharyngitis ICD-10: J06 .0 ICD-9: 465.0 01/26/2016 Other seborrheic keratosis ICD-10: L 82.1 ICD-9: 702.19 01/01/2016 Frequency of micturition ICD-10: R35 .0 ICD-9: 788.41 12/25/2015 Major depressive disorder, single episode, unspecified ICD-10: F32.9 ICD-9: 311 06/24/2015 Rash and other nonspecific skin eruption ICD-10: R21 ICD-9: 782.1 04/28/2015 Muscle strain ICD-9: 848.9 11/18/2014 Yeast infection involving the vagina and surrounding a lillie ICD- 9: 112.1 11/18/2014 Back pain ICD-9: 724.5 0 11/18/2014 Dog bite ICD-9: 879.8 CELLULITIS OF ARM ICD-9: 682.3 10/23/2014 DYSURIA ICD-9: 788.1 02/2015 Encounter for screening fecal occult blood testing ICD-9: V76.51 10/08/2014 PREVENTIVE PHYSICAL EXAM ICD-9: V70.0 10/02/2014 ESSENTIAL HYPERTENSION ICD-9: 401.9 09/25/2014 HYPOTHYROIDISM ICD-9: 244.9 09/23/2014 DIZZINESS AND GIDDINESS ICD-9: 780.4 09/23/2014 Hypotension ICD-9: 458.9 09/23/2014 COUGH ICD-9: 786.2 07/08 EDEMA ICD-9: 782.3 07/08 ACUTE URI ICD-9: 465.9 0 07/08/2014 Scab ICD-9: 782.8 2013 BIPOLAR AFFECTIVE, MANIC, UNSPEC ICD -9: 296.40 03/05/2014 VAC STREP PNEUMONIAE-FLU ICD-10: Z23 ICD-9: V06.6 01/29/2014 DEPRESSIVE DISORDER NEC ICD-9: 311 10/23/2013 Rash ICD-9: 782.1 2013 Left ankle pain ICD-9: 719.47 08/27/2013 IMPAIRED FASTING GLUCOSE ICD-9: 790.21 03/20/2013 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: V65.3 03/20/2013 ALLERGIC RHINITIS ICD-9: 477.9 03/20/2013 HYPERLIPIDEMIA ICD-9: 272.4 08/14/2012 VACCIN FOR INFLUENZA ICD-9: V04.81 02/23/2012 Vitamin D deficiency ICD-9: 268.9 12/01/2011 Osteoarthrosis, 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 08/11/2011 MASTODYNIA ICD-9: 611.71 06/01/2011 ABRASION HAND ICD-9: 914.0 06/01/2011 Flatulence ICD-9: 787.3 06/01/2011 Condition Codes Effectiv e Dates Allergic rhinitis due to pollen ICD- 10: J30.1 ICD-9: 477.0 10/19/2016 Unspecified fracture of left calcaneus, initial encounter for closed fracture ICD-10: S92.002A ICD-9: 825.0 10/19/2016 Unsteadiness on feet ICD-10: R26.81 ICD-9: 781.2 10/19/2016 Dysuria ICD-10: R30.0 ICD-9: 788.1 09/09/2016 Cough ICD-10: R05 ICD-9: 786.2 08/09/2016 Fever, unspecified ICD-10: R50.9 ICD-9: 780.60 08/09/2016 Acute recurrent maxillary sinusitis ICD-10: J01.01 ICD-9: 461.0 08/09/2016 Allergic rhinitis due to pollen ICD- 10: J30.1 ICD-9: 477.9 07/20/2016 Bipolar disorder, current episode depressed, moderate ICD-10: F31.32 ICD-9: 296.52 07/20/2016 Essential (primary) hypertension ICD -10: I10 ICD-9: 401.9 07/20/2016 Acute upper respiratory infection, unspecified ICD-10: J06.9 ICD-9: 465.9 05/27/2016 Bipolar disorder, current episode manic without psychotic features, moderate ICD-10: F31.12 ICD-9: 296.40 04/29/2016 Encounter for immunization ICD-10: Z 23 ICD-9: V04.81 02/20/2016 Acute laryngopharyngitis ICD-10: J06 .0 ICD-9: 465.0 01/26/2016 Other seborrheic keratosis ICD-10: L 82.1 ICD-9: 702.19 01/01/2016 Mixed hyperlipidemia ICD-10: E78.2 ICD-9: 272.4 12/25/2015 Other obesity due to excess calories ICD-10: E66.09 ICD-9: 278.00 12/25/2015 Frequency of micturition ICD-10: R35 .0 ICD-9: 788.41 12/25/2015 Gastro-esophageal reflux disease without esophagitis ICD-10: K21.9 ICD-9: 530.81 12/08/2015 Generalized anxiety disorder ICD-10: F41.1 ICD-9: 300.00 12/08/2015 Hypothyroidism, unspecified ICD-10: E03.9 ICD-9: 244.9 09/23/2015 Other termite helper (current) drug therapy ICD-10: Z79.899 ICD-9: V58.69 06/24/2015 Major depressive disorder, single episode, unspecified ICD-10: F32.9 ICD-9: 311 06/24/2015 Rash and other nonspecific skin eruption ICD-10: R21 ICD-9: 782.1 04/28/2015 Muscle strain ICD-9: 848.9 11/18/2014 Yeast infection involving the vagina and surrounding a lillie ICD- 9: 112.1 11/18/2014 Back pain ICD-9: 724.5 0 11/18/2014 Dog bite ICD-9: 879.8 CELLULITIS OF ARM ICD-9: 682.3 10/23/2014 DYSURIA ICD-9: 788.1 02/2015 Encounter for screening fecal occult blood testing ICD-9: V76.51 10/08/2014 PREVENTIVE PHYSICAL EXAM ICD-9: V70.0 10/02/2014 ESSENTIAL HYPERTENSION ICD-9: 401.9 09/25/2014 HYPOTHYROIDISM ICD-9: 244.9 09/23/2014 DIZZINESS AND GIDDINESS ICD-9: 780.4 09/23/2014 Hypotension ICD-9: 458.9 09/23/2014 COUGH ICD-9: 786.2 07/08 EDEMA ICD-9: 782.3 07/08 ACUTE URI ICD-9: 465.9 0 07/08/2014 Scab ICD-9: 782.8 2013 BIPOLAR AFFECTIVE, MANIC, UNSPEC ICD -9: 296.40 03/05/2014 VAC STREP PNEUMONIAE-FLU ICD-10: Z23 ICD-9: V06.6 01/29/2014 DEPRESSIVE DISORDER NEC ICD-9: 311 10/23/2013 Rash ICD-9: 782.1 2013 Left ankle pain ICD-9: 719.47 08/27/2013 IMPAIRED FASTING GLUCOSE ICD-9: 790.21 03/20/2013 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: V65.3 03/20/2013 ALLERGIC RHINITIS ICD-9: 477.9 03/20/2013 HYPERLIPIDEMIA ICD-9: 272.4 08/14/2012 VACCIN FOR INFLUENZA ICD-9: V04.81 02/23/2012 Vitamin D deficiency ICD-9: 268.9 12/01/2011 Osteoarthrosis, 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 08/11/2011 MASTODYNIA ICD-9: 611.71 06/01/2011 ABRASION HAND ICD-9: 914.0 06/01/2011 Flatulence ICD-9: 787.3 06/01/2011 Condition Codes Effectiv e Dates Dysuria ICD-10: R30.0 ICD-9: 788.1 11/10/2016 Allergic rhinitis due to pollen ICD- 10: J30.1 ICD-9: 477.0 10/19/2016 Unspecified fracture of left calcaneus, initial encounter for closed fracture ICD-10: S92.002A ICD-9: 825.0 10/19/2016 Unsteadiness on feet ICD-10: R26.81 ICD-9: 781.2 10/19/2016 Cough ICD-10: R05 ICD-9: 786.2 08/09/2016 Fever, unspecified ICD-10: R50.9 ICD-9: 780.60 08/09/2016 Acute recurrent maxillary sinusitis ICD-10: J01.01 ICD-9: 461.0 08/09/2016 Allergic rhinitis due to pollen ICD- 10: J30.1 ICD-9: 477.9 07/20/2016 Bipolar disorder, current episode depressed, moderate ICD-10: F31.32 ICD-9: 296.52 07/20/2016 Essential (primary) hypertension ICD -10: I10 ICD-9: 401.9 07/20/2016 Acute upper respiratory infection, unspecified ICD-10: J06.9 ICD-9: 465.9 05/27/2016 Bipolar disorder, current episode manic without psychotic features, moderate ICD-10: F31.12 ICD-9: 296.40 04/29/2016 Encounter for immunization ICD-10: Z 23 ICD-9: V04.81 02/20/2016 Acute laryngopharyngitis ICD-10: J06 .0 ICD-9: 465.0 01/26/2016 Other seborrheic keratosis ICD-10: L 82.1 ICD-9: 702.19 01/01/2016 Mixed hyperlipidemia ICD-10: E78.2 ICD-9: 272.4 12/25/2015 Other obesity due to excess calories ICD-10: E66.09 ICD-9: 278.00 12/25/2015 Frequency of micturition ICD-10: R35 .0 ICD-9: 788.41 12/25/2015 Gastro-esophageal reflux disease without esophagitis ICD-10: K21.9 ICD-9: 530.81 12/08/2015 Generalized anxiety disorder ICD-10: F41.1 ICD-9: 300.00 12/08/2015 Hypothyroidism, unspecified ICD-10: E03.9 ICD-9: 244.9 09/23/2015 Other termite helper (current) drug therapy ICD-10: Z79.899 ICD-9: V58.69 06/24/2015 Major depressive disorder, single episode, unspecified ICD-10: F32.9 ICD-9: 311 06/24/2015 Rash and other nonspecific skin eruption ICD-10: R21 ICD-9: 782.1 04/28/2015 Muscle strain ICD-9: 848.9 11/18/2014 Yeast infection involving the vagina and surrounding a lillie ICD- 9: 112.1 11/18/2014 Back pain ICD-9: 724.5 0 11/18/2014 Dog bite ICD-9: 879.8 CELLULITIS OF ARM ICD-9: 682.3 10/23/2014 DYSURIA ICD-9: 788.1 02/2015 Encounter for screening fecal occult blood testing ICD-9: V76.51 10/08/2014 PREVENTIVE PHYSICAL EXAM ICD-9: V70.0 10/02/2014 ESSENTIAL HYPERTENSION ICD-9: 401.9 09/25/2014 HYPOTHYROIDISM ICD-9: 244.9 09/23/2014 DIZZINESS AND GIDDINESS ICD-9: 780.4 09/23/2014 Hypotension ICD-9: 458.9 09/23/2014 COUGH ICD-9: 786.2 07/08 EDEMA ICD-9: 782.3 07/08 ACUTE URI ICD-9: 465.9 0 07/08/2014 Scab ICD-9: 782.8 2013 BIPOLAR AFFECTIVE, MANIC, UNSPEC ICD -9: 296.40 03/05/2014 VAC STREP PNEUMONIAE-FLU ICD-10: Z23 ICD-9: V06.6 01/29/2014 DEPRESSIVE DISORDER NEC ICD-9: 311 10/23/2013 Rash ICD-9: 782.1 2013 Left ankle pain ICD-9: 719.47 08/27/2013 IMPAIRED FASTING GLUCOSE ICD-9: 790.21 03/20/2013 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: V65.3 03/20/2013 ALLERGIC RHINITIS ICD-9: 477.9 03/20/2013 HYPERLIPIDEMIA ICD-9: 272.4 08/14/2012 VACCIN FOR INFLUENZA ICD-9: V04.81 02/23/2012 Vitamin D deficiency ICD-9: 268.9 12/01/2011 Osteoarthrosis, 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 08/11/2011 MASTODYNIA ICD-9: 611.71 06/01/2011 ABRASION HAND ICD-9: 914.0 06/01/2011 Flatulence ICD-9: 787.3 06/01/2011 Review of System System Result Effective Dates Constitutional No recent illness 12/22/2017 Constitutional No night sweats 12/22/2017 Constitutional No chills 12/22/2017 Constitutional No diaphoresis 12/22/2017 Constitutional fatigue 0 12/22/2017 Constitutional No fever 12/22/2017 Constitutional malaise 0 12/22/2017 Constitutional weight gain 12/22/2017 Eyes No eye discharge Eyes No eye erythema 01/2018 Ears/Nose/Throat/Neck No dental pain 12/22/2017 Ears/Nose/Throat/Neck No dizziness 12/22/2017 Ears/Nose/Throat/Neck No dysphagia 12/22/2017 Ears/Nose/Throat/Neck No headache 12/22/2017 Ears/Nose/Throat/Neck No hearing loss 12/22/2017 Ears/Nose/Throat/Neck nasal allergies 12/22/2017 Ears/Nose/Throat/Neck nasal discharge 12/22/2017 Ears/Nose/Throat/Neck No sore throat 12/22/2017 Ears/Nose/Throat/Neck No otalgia 12/22/2017 Ears/Nose/Throat/Neck No postnasal drip 12/22/2017 Ears/Nose/Throat/Neck No sinus congestion 12/22/2017 Cardiovascular No chest pain/pressure 12/22/2017 Respiratory No chest congestion 12/22/2017 Respiratory No chest tightness 12/22/2017 Respiratory cough 2017 Respiratory No dyspnea 0 12/22/2017 Gastrointestinal No abdominal pain 12/22/2017 Gastrointestinal No constipation 12/22/2017 Gastrointestinal No diarrhea 12/22/2017 Gastrointestinal gastroesophageal reflux 12/22/2017 Gastrointestinal No nausea 12/22/2017 Gastrointestinal No vomiting 12/22/2017 Dermatologic No rash 01/2018 Neurologic No alteration of consciousness 12/22/2017 Psychiatric anxiety 08/01/2018 Psychiatric depression 0 12/22/2017 Psychiatric disturbances of emotion 12/22/2017 Psychiatric No suicidality 12/22/2017 Constitutional obesity 0 12/22/2017 Musculoskeletal muscle weakness 12/22/2017 Respiratory dyspnea on exertion 12/22/2017 Cardiovascular dyspnea 0 12/22/2017 Constitutional recent illness 10/06/2017 Constitutional No anorexia 10/06/2017 Constitutional No night sweats 10/06/2017 Constitutional No chills 10/06/2017 Constitutional No diaphoresis 10/06/2017 Constitutional fatigue 0 10/06/2017 Constitutional No fever 10/06/2017 Constitutional No insomnia 10/06/2017 Constitutional No malaise 10/06/2017 Eyes No eye discharge Eyes No eye erythema Ears/Nose/Throat/Neck No dental pain 10/06/2017 Ears/Nose/Throat/Neck No dizziness 10/06/2017 Ears/Nose/Throat/Neck No dysphagia 10/06/2017 Ears/Nose/Throat/Neck No headache 10/06/2017 Ears/Nose/Throat/Neck No hearing loss 10/06/2017 Ears/Nose/Throat/Neck nasal allergies 10/06/2017 Ears/Nose/Throat/Neck nasal discharge 10/06/2017 Ears/Nose/Throat/Neck No sore throat 10/06/2017 Ears/Nose/Throat/Neck No otalgia 10/06/2017 Ears/Nose/Throat/Neck No postnasal drip 10/06/2017 Cardiovascular No chest pain/pressure 10/06/2017 Respiratory No chest congestion 10/06/2017 Respiratory No chest tightness 10/06/2017 Respiratory No cough Respiratory No dyspnea 0 10/06/2017 Gastrointestinal No abdominal pain 10/06/2017 Gastrointestinal No constipation 10/06/2017 Gastrointestinal No diarrhea 10/06/2017 Gastrointestinal No nausea 10/06/2017 Gastrointestinal No vomiting 10/06/2017 Genitourinary/Nephrology No dysuria 10/06/2017 Genitourinary/Nephrology No urinary urgenc y 10/06/2017 Genitourinary/Nephrology No urinary frequency 10/06/2017 Genitourinary/Nephrology No urinary incontinence 10/06/2017 Musculoskeletal No joint complaint 10/06/2017 Dermatologic No rash Neurologic No alteration of consciousness 10/06/2017 Psychiatric anxiety 09/14 Psychiatric depression 0 10/06/2017 Psychiatric disturbances of emotion 10/06/2017 Psychiatric No suicidality 10/06/2017 Constitutional No weight loss 10/06/2017 Constitutional weight gain 10/06/2017 Cardiovascular edema Constitutional No recent illness 08/25/2017 Constitutional No anorexia 08/25/2017 Constitutional No night sweats 08/25/2017 Constitutional No chills 08/25/2017 Constitutional No diaphoresis 08/25/2017 Constitutional No fatigue 08/25/2017 Constitutional No fever 08/25/2017 Constitutional No insomnia 08/25/2017 Constitutional No malaise 08/25/2017 Constitutional No weight loss 08/25/2017 Constitutional No weight gain 08/25/2017 Eyes No eye discharge Eyes No eye erythema 04/2018 Ears/Nose/Throat/Neck No dental pain 08/25/2017 Ears/Nose/Throat/Neck No dizziness 08/25/2017 Ears/Nose/Throat/Neck No dysphagia 08/25/2017 Ears/Nose/Throat/Neck No headache 08/25/2017 Ears/Nose/Throat/Neck No hearing loss 08/25/2017 Ears/Nose/Throat/Neck nasal allergies 08/25/2017 Ears/Nose/Throat/Neck nasal discharge 08/25/2017 Ears/Nose/Throat/Neck No otalgia 08/25/2017 Ears/Nose/Throat/Neck No postnasal drip 08/25/2017 Ears/Nose/Throat/Neck No sinus congestion 08/25/2017 Ears/Nose/Throat/Neck No sore throat 08/25/2017 Cardiovascular No chest pain/pressure 08/25/2017 Respiratory No chest congestion 08/25/2017 Respiratory No chest tightness 08/25/2017 Respiratory cough 2017 Respiratory No dyspnea 0 08/25/2017 Gastrointestinal No abdominal pain 08/25/2017 Gastrointestinal No constipation 08/25/2017 Gastrointestinal No diarrhea 08/25/2017 Gastrointestinal No nausea 08/25/2017 Gastrointestinal No vomiting 08/25/2017 Musculoskeletal joint complaint 08/25/2017 Dermatologic No rash 04/2018 Neurologic No alteration of consciousness 08/25/2017 Psychiatric anxiety 08/14 Psychiatric depression 0 08/25/2017 Psychiatric disturbances of emotion 08/25/2017 Psychiatric No suicidality 08/25/2017 Gastrointestinal gastroesophageal reflux 08/25/2017 Constitutional recent illness 05/23/2017 Constitutional No anorexia 05/23/2017 Constitutional No night sweats 05/23/2017 Constitutional No chills 05/23/2017 Constitutional No diaphoresis 05/23/2017 Constitutional fatigue 0 05/23/2017 Constitutional No fever 05/23/2017 Constitutional No insomnia 05/23/2017 Constitutional No malaise 05/23/2017 Eyes No eye discharge Eyes No eye erythema 12/2017 Ears/Nose/Throat/Neck No dental pain 05/23/2017 Ears/Nose/Throat/Neck No dizziness 05/23/2017 Ears/Nose/Throat/Neck No dysphagia 05/23/2017 Ears/Nose/Throat/Neck No headache 05/23/2017 Ears/Nose/Throat/Neck No hearing loss 05/23/2017 Ears/Nose/Throat/Neck nasal allergies 05/23/2017 Ears/Nose/Throat/Neck nasal discharge 05/23/2017 Ears/Nose/Throat/Neck No otalgia 05/23/2017 Ears/Nose/Throat/Neck No postnasal drip 05/23/2017 Ears/Nose/Throat/Neck sinus congestion 05/23/2017 Ears/Nose/Throat/Neck No sore throat 05/23/2017 Cardiovascular No chest pain/pressure 05/23/2017 Respiratory No chest congestion 05/23/2017 Respiratory No chest tightness 05/23/2017 Respiratory No cough 12/2017 Respiratory No dyspnea 0 05/23/2017 Gastrointestinal No abdominal pain 05/23/2017 Gastrointestinal No constipation 05/23/2017 Gastrointestinal No diarrhea 05/23/2017 Gastrointestinal No nausea 05/23/2017 Gastrointestinal No vomiting 05/23/2017 Genitourinary/Nephrology No dysuria 05/23/2017 Genitourinary/Nephrology No urinary urgenc y 05/23/2017 Genitourinary/Nephrology No urinary frequency 05/23/2017 Genitourinary/Nephrology No urinary incontinence 05/23/2017 Dermatologic No rash 12/2017 Neurologic No alteration of consciousness 05/23/2017 Psychiatric anxiety 0 12/2017 Psychiatric depression 0 05/23/2017 Psychiatric disturbances of emotion 05/23/2017 Psychiatric No suicidality 05/23/2017 Musculoskeletal No joint complaint 05/23/2017 Constitutional recent illness 03/10/2017 Constitutional No anorexia 03/10/2017 Constitutional No night sweats 03/10/2017 Constitutional No chills 03/10/2017 Constitutional No diaphoresis 03/10/2017 Constitutional No fatigue 03/10/2017 Constitutional No fever 03/10/2017 Constitutional No insomnia 03/10/2017 Constitutional No malaise 03/10/2017 Constitutional No weight loss 03/10/2017 Constitutional No weight gain 03/10/2017 Eyes No eye discharge Eyes No eye erythema Ears/Nose/Throat/Neck nasal allergies 03/10/2017 Cardiovascular No chest pain/pressure 03/10/2017 Cardiovascular No edema 03/10/2017 Cardiovascular No dyspnea 03/10/2017 Respiratory productive sputum 03/10/2017 Respiratory cough 2016 Gastrointestinal No abdominal pain 03/10/2017 Genitourinary/Nephrology dysuria 03/10/2017 Genitourinary/Nephrology urinary inc ontinence 03/10/2017 Musculoskeletal No joint complaint 03/10/2017 Dermatologic No rash Neurologic No alteration of consciousness 03/10/2017 Constitutional No recent illness 02/07/2017 Constitutional No anorexia 02/07/2017 Constitutional No night sweats 02/07/2017 Constitutional No chills 02/07/2017 Constitutional No fatigue 02/07/2017 Constitutional No fever 02/07/2017 Constitutional No insomnia 02/07/2017 Constitutional No malaise 02/07/2017 Constitutional No weight loss 02/07/2017 Constitutional No weight gain 02/07/2017 Constitutional No diaphoresis 02/07/2017 Eyes No eye discharge Eyes No eye erythema Eyes vision change 02/07 Ears/Nose/Throat/Neck dizziness 02/07/2017 Ears/Nose/Throat/Neck headache 02/07/2017 Cardiovascular No chest pain/pressure 02/07/2017 Cardiovascular No dyspnea 02/07/2017 Cardiovascular No edema 02/07/2017 Respiratory No cough Gastrointestinal No abdominal pain 02/07/2017 Genitourinary/Nephrology No dysuria 02/07/2017 Dermatologic No rash Neurologic No alteration of consciousness 02/07/2017 Constitutional No recent illness 12/30/2016 Constitutional No anorexia 12/30/2016 Constitutional No night sweats 12/30/2016 Constitutional No chills 12/30/2016 Constitutional No diaphoresis 12/30/2016 Constitutional No fatigue 12/30/2016 Constitutional No fever 12/30/2016 Constitutional No insomnia 12/30/2016 Constitutional No malaise 12/30/2016 Constitutional No weight loss 12/30/2016 Constitutional No weight gain 12/30/2016 Eyes No eye discharge Eyes No eye erythema Ears/Nose/Throat/Neck No dental pain 12/30/2016 Ears/Nose/Throat/Neck No dizziness 12/30/2016 Ears/Nose/Throat/Neck No dysphagia 12/30/2016 Ears/Nose/Throat/Neck No headache 12/30/2016 Ears/Nose/Throat/Neck No hearing loss 12/30/2016 Ears/Nose/Throat/Neck nasal allergies 12/30/2016 Ears/Nose/Throat/Neck nasal discharge 12/30/2016 Ears/Nose/Throat/Neck No otalgia 12/30/2016 Ears/Nose/Throat/Neck No postnasal drip 12/30/2016 Ears/Nose/Throat/Neck No sinus congestion 12/30/2016 Ears/Nose/Throat/Neck No sore throat 12/30/2016 Cardiovascular No chest pain/pressure 12/30/2016 Respiratory No chest congestion 12/30/2016 Respiratory No chest tightness 12/30/2016 Respiratory No cough Respiratory No dyspnea 0 12/30/2016 Gastrointestinal No abdominal pain 12/30/2016 Gastrointestinal No constipation 12/30/2016 Gastrointestinal No diarrhea 12/30/2016 Gastrointestinal No nausea 12/30/2016 Gastrointestinal No vomiting 12/30/2016 Genitourinary/Nephrology No dysuria 12/30/2016 Genitourinary/Nephrology No urinary urgenc y 12/30/2016 Genitourinary/Nephrology No urinary frequency 12/30/2016 Genitourinary/Nephrology No urinary incontinence 12/30/2016 Musculoskeletal joint complaint 12/30/2016 Dermatologic No rash Neurologic No alteration of consciousness 12/30/2016 Psychiatric anxiety 12/14 Psychiatric depression 0 12/30/2016 Psychiatric disturbances of emotion 12/30/2016 Psychiatric No suicidality 12/30/2016 Constitutional No recent illness 10/19/2016 Constitutional No anorexia 10/19/2016 Constitutional No night sweats 10/19/2016 Constitutional No chills 10/19/2016 Constitutional No diaphoresis 10/19/2016 Constitutional No fatigue 10/19/2016 Constitutional No fever 10/19/2016 Constitutional No insomnia 10/19/2016 Constitutional No malaise 10/19/2016 Constitutional No weight loss 10/19/2016 Constitutional No weight gain 10/19/2016 Eyes No eye discharge Eyes No eye erythema 10/2016 Ears/Nose/Throat/Neck No dental pain 10/19/2016 Ears/Nose/Throat/Neck No dizziness 10/19/2016 Ears/Nose/Throat/Neck No dysphagia 10/19/2016 Ears/Nose/Throat/Neck No headache 10/19/2016 Ears/Nose/Throat/Neck No hearing loss 10/19/2016 Ears/Nose/Throat/Neck nasal allergies 10/19/2016 Ears/Nose/Throat/Neck nasal discharge 10/19/2016 Ears/Nose/Throat/Neck No otalgia 10/19/2016 Ears/Nose/Throat/Neck No postnasal drip 10/19/2016 Ears/Nose/Throat/Neck No sinus congestion 10/19/2016 Ears/Nose/Throat/Neck No sore throat 10/19/2016 Cardiovascular No chest pain/pressure 10/19/2016 Respiratory No chest congestion 10/19/2016 Respiratory No chest tightness 10/19/2016 Respiratory No cough 10/2016 Respiratory No dyspnea 0 10/19/2016 Gastrointestinal No abdominal pain 10/19/2016 Gastrointestinal No constipation 10/19/2016 Gastrointestinal No diarrhea 10/19/2016 Gastrointestinal No nausea 10/19/2016 Gastrointestinal No vomiting 10/19/2016 Genitourinary/Nephrology No dysuria 10/19/2016 Genitourinary/Nephrology No urinary urgenc y 10/19/2016 Genitourinary/Nephrology No urinary frequency 10/19/2016 Genitourinary/Nephrology No urinary incontinence 10/19/2016 Musculoskeletal joint complaint 10/19/2016 Dermatologic No rash 10/2016 Neurologic No alteration of consciousness 10/19/2016 Psychiatric anxiety 0610/2016 Psychiatric depression 0 10/19/2016 Psychiatric disturbances of emotion 10/19/2016 Psychiatric No suicidality 10/19/2016 Constitutional recent illness 08/09/2016 Constitutional No anorexia 08/09/2016 Constitutional No night sweats 08/09/2016 Constitutional No chills 08/09/2016 Constitutional diaphoresis 08/09/2016 Constitutional fatigue 0 08/09/2016 Constitutional fever Constitutional insomnia 08/09/2016 Constitutional malaise 0 08/09/2016 Constitutional No weight loss 08/09/2016 Constitutional No weight gain 08/09/2016 Respiratory No foul smelling sputum 08/09/2016 Respiratory No chest congestion 08/09/2016 Respiratory cough 2016 Cardiovascular No chest pain/pressure 08/09/2016 Cardiovascular No dyspnea 08/09/2016 Cardiovascular No exercise intolerance 08/09/2016 Eyes No eye discharge Eyes No eye erythema Ears/Nose/Throat/Neck No dizziness 08/09/2016 Ears/Nose/Throat/Neck No headache 08/09/2016 Ears/Nose/Throat/Neck nasal discharge 08/09/2016 Ears/Nose/Throat/Neck otalgia 08/09/2016 Ears/Nose/Throat/Neck sinus congestion 08/09/2016 Ears/Nose/Throat/Neck sore throat 08/09/2016 Gastrointestinal No abdominal pain 08/09/2016 Genitourinary/Nephrology No dysuria 08/09/2016 Musculoskeletal myalgias 08/09/2016 Dermatologic No rash Neurologic No alteration of consciousness 08/09/2016 Constitutional recent illness 07/20/2016 Constitutional No anorexia 07/20/2016 Constitutional No night sweats 07/20/2016 Constitutional No chills 07/20/2016 Constitutional No diaphoresis 07/20/2016 Constitutional fatigue 0 07/20/2016 Constitutional No fever 07/20/2016 Constitutional No insomnia 07/20/2016 Constitutional No malaise 07/20/2016 Constitutional No weight loss 07/20/2016 Constitutional No weight gain 07/20/2016 Eyes No eye discharge Eyes No eye erythema 11/2016 Ears/Nose/Throat/Neck No dizziness 07/20/2016 Ears/Nose/Throat/Neck No headache 07/20/2016 Ears/Nose/Throat/Neck nasal discharge 07/20/2016 Ears/Nose/Throat/Neck No otalgia 07/20/2016 Ears/Nose/Throat/Neck sinus congestion 07/20/2016 Cardiovascular No chest pain/pressure 07/20/2016 Respiratory cough 2016 Gastrointestinal No abdominal pain 07/20/2016 Gastrointestinal No constipation 07/20/2016 Gastrointestinal No diarrhea 07/20/2016 Genitourinary/Nephrology No dysuria 07/20/2016 Musculoskeletal No joint complaint 07/20/2016 Dermatologic No rash 11/2016 Neurologic No alteration of consciousness 07/20/2016 Ears/Nose/Throat/Neck No dental pain 07/20/2016 Ears/Nose/Throat/Neck No dysphagia 07/20/2016 Ears/Nose/Throat/Neck No hearing loss 07/20/2016 Ears/Nose/Throat/Neck nasal allergies 07/20/2016 Ears/Nose/Throat/Neck No postnasal drip 07/20/2016 Ears/Nose/Throat/Neck No sore throat 07/20/2016 Respiratory No chest congestion 07/20/2016 Respiratory No chest tightness 07/20/2016 Respiratory No dyspnea 0 07/20/2016 Gastrointestinal No nausea 07/20/2016 Gastrointestinal No vomiting 07/20/2016 Genitourinary/Nephrology No urinary urgenc y 07/20/2016 Genitourinary/Nephrology No urinary frequency 07/20/2016 Genitourinary/Nephrology No urinary incontinence 07/20/2016 Psychiatric anxiety 030 11/2016 Psychiatric depression 0 07/20/2016 Psychiatric disturbances of emotion 07/20/2016 Psychiatric No suicidality 07/20/2016 Constitutional recent illness 05/27/2016 Constitutional No anorexia 05/27/2016 Constitutional No night sweats 05/27/2016 Constitutional No chills 05/27/2016 Constitutional No diaphoresis 05/27/2016 Constitutional No fever 05/27/2016 Constitutional No insomnia 05/27/2016 Constitutional No malaise 05/27/2016 Constitutional No weight loss 05/27/2016 Constitutional No weight gain 05/27/2016 Constitutional fatigue 0 05/27/2016 Eyes No eye erythema 04/2017 Eyes No eye discharge Ears/Nose/Throat/Neck dizziness 05/27/2016 Ears/Nose/Throat/Neck headache 05/27/2016 Ears/Nose/Throat/Neck nasal discharge 05/27/2016 Ears/Nose/Throat/Neck No otalgia 05/27/2016 Ears/Nose/Throat/Neck sinus congestion 05/27/2016 Cardiovascular No chest pain/pressure 05/27/2016 Respiratory cough 2016 Gastrointestinal No abdominal pain 05/27/2016 Gastrointestinal No constipation 05/27/2016 Gastrointestinal No diarrhea 05/27/2016 Genitourinary/Nephrology No dysuria 05/27/2016 Musculoskeletal No joint complaint 05/27/2016 Dermatologic No rash 04/2017 Neurologic No alteration of consciousness 05/27/2016 Constitutional No night sweats 04/29/2016 Constitutional No chills 04/29/2016 Constitutional No fatigue 04/29/2016 Constitutional No fever 04/29/2016 Ears/Nose/Throat/Neck No dental pain 04/29/2016 Ears/Nose/Throat/Neck No dizziness 04/29/2016 Ears/Nose/Throat/Neck No dysphagia 04/29/2016 Ears/Nose/Throat/Neck No headache 04/29/2016 Ears/Nose/Throat/Neck No hearing loss 04/29/2016 Ears/Nose/Throat/Neck No nasal allergies 04/29/2016 Ears/Nose/Throat/Neck No postnasal drip 04/29/2016 Ears/Nose/Throat/Neck No sinus congestion 04/29/2016 Ears/Nose/Throat/Neck No sore throat 04/29/2016 Respiratory No chest congestion 04/29/2016 Respiratory No chest tightness 04/29/2016 Respiratory No cough Respiratory No dyspnea 1 06/30/2015 Gastrointestinal No anorexia 04/29/2016 Gastrointestinal No constipation 04/29/2016 Gastrointestinal No diarrhea 04/29/2016 Gastrointestinal No nausea 04/29/2016 Gastrointestinal No vomiting 04/29/2016 Genitourinary/Nephrology No urinary urgenc y 04/29/2016 Genitourinary/Nephrology No urinary frequency 04/29/2016 Genitourinary/Nephrology No urinary incontinence 04/29/2016 Dermatologic No rash Psychiatric anxiety 04/15 Psychiatric depression 1 06/30/2015 Psychiatric disturbances of emotion 04/29/2016 Psychiatric No suicidality 04/29/2016 Constitutional No night sweats 04/02/2016 Constitutional No chills 04/02/2016 Constitutional No fatigue 04/02/2016 Constitutional No fever 04/02/2016 Ears/Nose/Throat/Neck No dental pain 04/02/2016 Ears/Nose/Throat/Neck No dizziness 04/02/2016 Ears/Nose/Throat/Neck No dysphagia 04/02/2016 Ears/Nose/Throat/Neck No headache 04/02/2016 Ears/Nose/Throat/Neck No hearing loss 04/02/2016 Ears/Nose/Throat/Neck No nasal allergies 04/02/2016 Ears/Nose/Throat/Neck No postnasal drip 04/02/2016 Ears/Nose/Throat/Neck No sinus congestion 04/02/2016 Ears/Nose/Throat/Neck No sore throat 04/02/2016 Respiratory No chest congestion 04/02/2016 Respiratory No chest tightness 04/02/2016 Respiratory No cough Respiratory No dyspnea 1 06/02/2015 Gastrointestinal No anorexia 04/02/2016 Gastrointestinal No constipation 04/02/2016 Gastrointestinal No diarrhea 04/02/2016 Gastrointestinal No nausea 04/02/2016 Gastrointestinal No vomiting 04/02/2016 Genitourinary/Nephrology No urinary urgenc y 04/02/2016 Genitourinary/Nephrology No urinary frequency 04/02/2016 Genitourinary/Nephrology No urinary incontinence 04/02/2016 Dermatologic No rash Psychiatric anxiety 03/16 Psychiatric depression 1 06/02/2015 Psychiatric disturbances of emotion 04/02/2016 Psychiatric No suicidality 04/02/2016 Constitutional No night sweats 03/18/2016 Constitutional No chills 03/18/2016 Constitutional No fatigue 03/18/2016 Constitutional No fever 03/18/2016 Ears/Nose/Throat/Neck No dental pain 03/18/2016 Ears/Nose/Throat/Neck No dizziness 03/18/2016 Ears/Nose/Throat/Neck No dysphagia 03/18/2016 Ears/Nose/Throat/Neck No headache 03/18/2016 Ears/Nose/Throat/Neck No hearing loss 03/18/2016 Ears/Nose/Throat/Neck No nasal allergies 03/18/2016 Ears/Nose/Throat/Neck No sore throat 03/18/2016 Ears/Nose/Throat/Neck No postnasal drip 03/18/2016 Ears/Nose/Throat/Neck No sinus congestion 03/18/2016 Respiratory No chest congestion 03/18/2016 Respiratory No chest tightness 03/18/2016 Respiratory No cough 07/2015 Respiratory No dyspnea 1 05/18/2015 Gastrointestinal No anorexia 03/18/2016 Gastrointestinal No constipation 03/18/2016 Gastrointestinal No diarrhea 03/18/2016 Gastrointestinal No nausea 03/18/2016 Gastrointestinal No vomiting 03/18/2016 Genitourinary/Nephrology No urinary urgenc y 03/18/2016 Genitourinary/Nephrology No urinary frequency 03/18/2016 Genitourinary/Nephrology No urinary incontinence 03/18/2016 Dermatologic No rash 07/2015 Psychiatric anxiety 11/0 07/2015 Psychiatric depression 1 05/18/2015 Psychiatric disturbances of emotion 03/18/2016 Psychiatric No suicidality 03/18/2016 Constitutional recent illness 01/26/2016 Constitutional No anorexia 01/26/2016 Constitutional No night sweats 01/26/2016 Constitutional No chills 01/26/2016 Constitutional No diaphoresis 01/26/2016 Constitutional fatigue 0 01/26/2016 Constitutional No fever 01/26/2016 Constitutional No insomnia 01/26/2016 Constitutional No malaise 01/26/2016 Constitutional No weight loss 01/26/2016 Constitutional No weight gain 01/26/2016 Eyes No eye discharge Eyes No eye erythema 04/2016 Ears/Nose/Throat/Neck No dizziness 01/26/2016 Ears/Nose/Throat/Neck headache 01/26/2016 Ears/Nose/Throat/Neck nasal allergies 01/26/2016 Ears/Nose/Throat/Neck nasal discharge 01/26/2016 Ears/Nose/Throat/Neck No otalgia 01/26/2016 Ears/Nose/Throat/Neck sinus congestion 01/26/2016 Ears/Nose/Throat/Neck sore throat 01/26/2016 Cardiovascular No chest pain/pressure 01/26/2016 Respiratory No productive sputum 01/26/2016 Respiratory chest congestion 01/26/2016 Respiratory cough 2015 Gastrointestinal No abdominal pain 01/26/2016 Genitourinary/Nephrology No dysuria 01/26/2016 Musculoskeletal No joint complaint 01/26/2016 Dermatologic No rash 04/2016 Neurologic No alteration of consciousness 01/26/2016 Constitutional No recent illness 12/25/2015 Constitutional No anorexia 12/25/2015 Constitutional No night sweats 12/25/2015 Constitutional No chills 12/25/2015 Constitutional No diaphoresis 12/25/2015 Constitutional No fatigue 12/25/2015 Constitutional No fever 12/25/2015 Constitutional No insomnia 12/25/2015 Constitutional No malaise 12/25/2015 Constitutional No weight loss 12/25/2015 Constitutional No weight gain 12/25/2015 Constitutional obesity 0 12/25/2015 Eyes No vision change Ears/Nose/Throat/Neck No headache 12/25/2015 Ears/Nose/Throat/Neck nasal allergies 12/25/2015 Ears/Nose/Throat/Neck No otalgia 12/25/2015 Ears/Nose/Throat/Neck No otitis media 12/25/2015 Ears/Nose/Throat/Neck No sinus congestion 12/25/2015 Ears/Nose/Throat/Neck No sore throat 12/25/2015 Cardiovascular No chest pain/pressure 12/25/2015 Respiratory No chest congestion 12/25/2015 Respiratory No chest tightness 12/25/2015 Respiratory No cigarette smoking 12/25/2015 Respiratory No cough 03/2016 Respiratory No dyspnea 0 12/25/2015 Respiratory No nocturnal cough 12/25/2015 Gastrointestinal constipation 12/25/2015 Gastrointestinal No diarrhea 12/25/2015 Genitourinary/Nephrology No dysuria 12/25/2015 Musculoskeletal No joint complaint 12/25/2015 Musculoskeletal No muscle weakness 12/25/2015 Musculoskeletal No myalgias 12/25/2015 Dermatologic No rash 03/2016 Dermatologic No sores Psychiatric anxiety 12/14 Psychiatric depression 0 12/25/2015 Neurologic No alteration of consciousness 12/25/2015 Endocrine No dry or coarse skin 12/25/2015 Genitourinary/Nephrology urinary frequency 12/25/2015 Gastrointestinal No constipation 12/08/2015 Gastrointestinal No diarrhea 12/08/2015 Gastrointestinal dyspepsia 12/08/2015 Gastrointestinal No vomiting 12/08/2015 Gastrointestinal nausea 12/08/2015 Gastrointestinal gastroesophageal reflux 12/08/2015 Constitutional No recent illness 12/08/2015 Constitutional No anorexia 12/08/2015 Psychiatric anxiety 11/14 Psychiatric depression 0 12/08/2015 Neurologic No alteration of consciousness 12/08/2015 Dermatologic No rash Musculoskeletal No joint complaint 12/08/2015 Eyes No eye discharge Eyes No eye erythema Ears/Nose/Throat/Neck No dizziness 12/08/2015 Ears/Nose/Throat/Neck headache 12/08/2015 Cardiovascular chest pain/pressure 12/08/2015 Respiratory No cough Genitourinary/Nephrology No dysuria 12/08/2015 Constitutional No recent illness 09/23/2015 Constitutional No anorexia 09/23/2015 Constitutional No night sweats 09/23/2015 Constitutional No chills 09/23/2015 Constitutional No diaphoresis 09/23/2015 Constitutional No fatigue 09/23/2015 Constitutional No fever 09/23/2015 Constitutional No insomnia 09/23/2015 Constitutional No malaise 09/23/2015 Constitutional No weight loss 09/23/2015 Constitutional No weight gain 09/23/2015 Constitutional obesity 0 09/23/2015 Eyes No vision change Ears/Nose/Throat/Neck No headache 09/23/2015 Ears/Nose/Throat/Neck nasal allergies 09/23/2015 Ears/Nose/Throat/Neck No otalgia 09/23/2015 Ears/Nose/Throat/Neck No otitis media 09/23/2015 Ears/Nose/Throat/Neck No sinus congestion 09/23/2015 Ears/Nose/Throat/Neck No sore throat 09/23/2015 Cardiovascular No chest pain/pressure 09/23/2015 Respiratory No chest congestion 09/23/2015 Respiratory No chest tightness 09/23/2015 Respiratory No cigarette smoking 09/23/2015 Respiratory No cough 02/2016 Respiratory dyspnea on exertion 09/23/2015 Respiratory No dyspnea 0 09/23/2015 Respiratory No nocturnal cough 09/23/2015 Gastrointestinal constipation 09/23/2015 Gastrointestinal No diarrhea 09/23/2015 Genitourinary/Nephrology No dysuria 09/23/2015 Musculoskeletal No joint complaint 09/23/2015 Musculoskeletal No muscle weakness 09/23/2015 Musculoskeletal No myalgias 09/23/2015 Dermatologic No rash 02/2016 Dermatologic No sores Psychiatric anxiety 09/13 Psychiatric depression 0 09/23/2015 Constitutional No recent illness 06/19/2015 Constitutional No anorexia 06/19/2015 Constitutional No night sweats 06/19/2015 Constitutional No chills 06/19/2015 Constitutional No diaphoresis 06/19/2015 Constitutional No fatigue 06/19/2015 Constitutional No fever 06/19/2015 Constitutional No insomnia 06/19/2015 Constitutional No malaise 06/19/2015 Constitutional No weight loss 06/19/2015 Constitutional No weight gain 06/19/2015 Constitutional obesity 0 06/19/2015 Cardiovascular No chest pain/pressure 06/19/2015 Respiratory dyspnea on exertion 06/19/2015 Respiratory No cough 08/2015 Respiratory No chest tightness 06/19/2015 Respiratory No chest congestion 06/19/2015 Respiratory No cigarette smoking 06/19/2015 Respiratory No dyspnea 0 06/19/2015 Respiratory No nocturnal cough 06/19/2015 Ears/Nose/Throat/Neck nasal discharge 06/19/2015 Ears/Nose/Throat/Neck nasal allergies 06/19/2015 Ears/Nose/Throat/Neck No headache 06/19/2015 Ears/Nose/Throat/Neck No otalgia 06/19/2015 Ears/Nose/Throat/Neck No otitis media 06/19/2015 Ears/Nose/Throat/Neck No sore throat 06/19/2015 Ears/Nose/Throat/Neck No sinus congestion 06/19/2015 Eyes No vision change Gastrointestinal constipation 06/19/2015 Gastrointestinal No diarrhea 06/19/2015 Genitourinary/Nephrology No dysuria 06/19/2015 Dermatologic No sores Dermatologic No rash 08/2015 Musculoskeletal No muscle weakness 06/19/2015 Musculoskeletal No joint complaint 06/19/2015 Musculoskeletal No myalgias 06/19/2015 Psychiatric anxiety 08/2015 Psychiatric depression 0 06/19/2015 Constitutional No recent illness 05/19/2015 Constitutional No anorexia 05/19/2015 Constitutional No night sweats 05/19/2015 Constitutional No chills 05/19/2015 Constitutional No diaphoresis 05/19/2015 Constitutional No fatigue 05/19/2015 Constitutional No fever 05/19/2015 Constitutional No insomnia 05/19/2015 Constitutional No malaise 05/19/2015 Constitutional No weight loss 05/19/2015 Constitutional No weight gain 05/19/2015 Eyes No eye discharge Eyes No eye erythema 08/2015 Ears/Nose/Throat/Neck No dizziness 05/19/2015 Dermatologic No rash 08/2015 Musculoskeletal No joint complaint 05/19/2015 Genitourinary/Nephrology No dysuria 05/19/2015 Gastrointestinal No abdominal pain 05/19/2015 Neurologic No alteration of consciousness 05/19/2015 Psychiatric anxiety 01/0 08/2015 Psychiatric depression 0 05/19/2015 Constitutional No recent illness 04/28/2015 Constitutional No anorexia 04/28/2015 Constitutional No night sweats 04/28/2015 Constitutional No chills 04/28/2015 Constitutional No diaphoresis 04/28/2015 Constitutional No fatigue 04/28/2015 Constitutional No fever 04/28/2015 Constitutional No insomnia 04/28/2015 Constitutional No malaise 04/28/2015 Constitutional No weight loss 04/28/2015 Constitutional No weight gain 04/28/2015 Eyes No eye discharge Eyes No eye erythema Ears/Nose/Throat/Neck No nasal discharge 04/28/2015 Ears/Nose/Throat/Neck No nasal allergies 04/28/2015 Cardiovascular No chest pain/pressure 04/28/2015 Cardiovascular No dyspnea 04/28/2015 Respiratory No productive sputum 04/28/2015 Respiratory No cough Gastrointestinal No diarrhea 04/28/2015 Gastrointestinal No nausea 04/28/2015 Gastrointestinal No vomiting 04/28/2015 Genitourinary/Nephrology No dysuria 04/28/2015 Musculoskeletal No joint complaint 04/28/2015 Dermatologic rash 2014 Neurologic No alteration of consciousness 04/28/2015 Constitutional No recent illness 03/18/2015 Constitutional No night sweats 03/18/2015 Constitutional No chills 03/18/2015 Constitutional No fever 03/18/2015 Eyes No eye discharge Eyes No eye erythema 07/2014 Ears/Nose/Throat/Neck No headache 03/18/2015 Ears/Nose/Throat/Neck No nasal discharge 03/18/2015 Cardiovascular No chest pain/pressure 03/18/2015 Cardiovascular No dyspnea 03/18/2015 Respiratory No chest congestion 03/18/2015 Respiratory No cough 07/2014 Gastrointestinal No abdominal pain 03/18/2015 Gastrointestinal No constipation 03/18/2015 Gastrointestinal No diarrhea 03/18/2015 Genitourinary/Nephrology No hematuria 03/18/2015 Musculoskeletal No back pain 03/18/2015 Musculoskeletal No bone pain 03/18/2015 Dermatologic No rash 07/2014 Dermatologic No sores Neurologic No alteration of consciousness 03/18/2015 Psychiatric anxiety 07/2014 Psychiatric depression 1 05/18/2014 Endocrine No dry or coarse skin 03/18/2015 Constitutional No recent illness 02/27/2015 Constitutional No anorexia 02/27/2015 Constitutional No night sweats 02/27/2015 Constitutional No chills 02/27/2015 Constitutional No diaphoresis 02/27/2015 Constitutional No fatigue 02/27/2015 Constitutional No insomnia 02/27/2015 Constitutional No fever 02/27/2015 Constitutional No malaise 02/27/2015 Constitutional No weight loss 02/27/2015 Constitutional No weight gain 02/27/2015 Constitutional No recent illness 02/13/2015 Constitutional No night sweats 02/13/2015 Constitutional No chills 02/13/2015 Constitutional No fever 02/13/2015 Ears/Nose/Throat/Neck No headache 02/13/2015 Ears/Nose/Throat/Neck No nasal discharge 02/13/2015 Cardiovascular No chest pain/pressure 02/13/2015 Cardiovascular No dyspnea 02/13/2015 Respiratory No chest congestion 02/13/2015 Respiratory No cough 05/2014 Gastrointestinal No abdominal pain 02/13/2015 Gastrointestinal No constipation 02/13/2015 Gastrointestinal No diarrhea 02/13/2015 Genitourinary/Nephrology dysuria 02/13/2015 Genitourinary/Nephrology No hematuria 02/13/2015 Musculoskeletal No bone pain 02/13/2015 Dermatologic No rash 05/2014 Dermatologic No sores Eyes No eye erythema 05/2014 Eyes No eye discharge Musculoskeletal No back pain 02/13/2015 Neurologic No alteration of consciousness 02/13/2015 Psychiatric anxiety 05/2014 Psychiatric depression 1 Endocrine No dry or coarse skin 02/13/2015 Constitutional No recent illness 11/18/2014 Cardiovascular No chest pain/pressure 11/18/2014 Cardiovascular No dyspnea 11/18/2014 Respiratory No cough 10/2014 Respiratory No chest congestion 11/18/2014 Gastrointestinal No abdominal pain 11/18/2014 Gastrointestinal No diarrhea 11/18/2014 Gastrointestinal No constipation 11/18/2014 Genitourinary/Nephrology dysuria 11/18/2014 Genitourinary/Nephrology No hematuria 11/18/2014 Dermatologic No rash 10/2014 Dermatologic No sores Constitutional No fever 11/18/2014 Constitutional No chills 11/18/2014 Constitutional No night sweats 11/18/2014 Ears/Nose/Throat/Neck No headache 11/18/2014 Ears/Nose/Throat/Neck No nasal discharge 11/18/2014 Musculoskeletal back pain 11/18/2014 Musculoskeletal No bone pain 11/18/2014 Musculoskeletal myalgias 11/18/2014 Musculoskeletal neck pain 11/18/2014 Constitutional No fever 10/23/2014 Dermatologic No rash 02/2015 Ears/Nose/Throat/Neck No headache 10/23/2014 Cardiovascular No dyspnea 10/23/2014 Genitourinary/Nephrology dysuria 10/23/2014 Genitourinary/Nephrology No hematuria 10/23/2014 Constitutional No recent illness 10/02/2014 Constitutional No chills 10/02/2014 Constitutional No night sweats 10/02/2014 Eyes No eye tearing 09/14 Eyes No eyelid pain 09/14 Ears/Nose/Throat/Neck No headache 10/02/2014 Ears/Nose/Throat/Neck No nasal discharge 10/02/2014 Ears/Nose/Throat/Neck No otalgia 10/02/2014 Cardiovascular No chest pain/pressure 10/02/2014 Cardiovascular dyspnea 0 10/02/2014 Respiratory No chest congestion 10/02/2014 Respiratory No chest tightness 10/02/2014 Respiratory No cough Gastrointestinal No diarrhea 10/02/2014 Gastrointestinal No constipation 10/02/2014 Genitourinary/Nephrology No dysuria 10/02/2014 Genitourinary/Nephrology No hematuria 10/02/2014 Musculoskeletal No back pain 10/02/2014 Dermatologic No rash Dermatologic No sores Neurologic No speech difficulties 10/02/2014 Neurologic No memory loss 10/02/2014 Neurologic No gait abnormality 10/02/2014 Psychiatric depression 0 10/02/2014 Constitutional No recent illness 09/23/2014 Constitutional No anorexia 09/23/2014 Constitutional No night sweats 09/23/2014 Constitutional No chills 09/23/2014 Constitutional No diaphoresis 09/23/2014 Constitutional No fatigue 09/23/2014 Constitutional No fever 09/23/2014 Constitutional No insomnia 09/23/2014 Constitutional No malaise 09/23/2014 Ears/Nose/Throat/Neck dizziness 09/23/2014 Ears/Nose/Throat/Neck headache 09/23/2014 Eyes No eye discharge Eyes No eye erythema 03/2015 Eyes No vision change Ears/Nose/Throat/Neck No otalgia 09/23/2014 Ears/Nose/Throat/Neck No sinus congestion 09/23/2014 Ears/Nose/Throat/Neck nasal allergies 09/23/2014 Ears/Nose/Throat/Neck nasal discharge 09/23/2014 Cardiovascular No chest pain/pressure 09/23/2014 Cardiovascular No dyspnea 09/23/2014 Cardiovascular No edema 09/23/2014 Respiratory No productive sputum 09/23/2014 Respiratory No chest congestion 09/23/2014 Respiratory No cough 03/2015 Respiratory dyspnea on exertion 09/23/2014 Gastrointestinal No abdominal pain 09/23/2014 Gastrointestinal constipation 09/23/2014 Gastrointestinal No diarrhea 09/23/2014 Gastrointestinal No vomiting 09/23/2014 Gastrointestinal No nausea 09/23/2014 Genitourinary/Nephrology dysuria 09/23/2014 Musculoskeletal No joint complaint 09/23/2014 Dermatologic No rash 03/2015 Dermatologic No sores Neurologic No alteration of consciousness 09/23/2014 Psychiatric anxiety 09/13 Psychiatric depression 0 09/23/2014 Constitutional recent illness 07/08/2014 Eyes No eye erythema Eyes No eye discharge Ears/Nose/Throat/Neck nasal allergies 07/08/2014 Ears/Nose/Throat/Neck nasal discharge 07/08/2014 Ears/Nose/Throat/Neck No otalgia 07/08/2014 Ears/Nose/Throat/Neck sinus congestion 07/08/2014 Ears/Nose/Throat/Neck sore throat 07/08/2014 Cardiovascular No chest pain/pressure 07/08/2014 Constitutional No anorexia 07/08/2014 Constitutional No night sweats 07/08/2014 Constitutional No chills 07/08/2014 Constitutional No diaphoresis 07/08/2014 Constitutional No fatigue 07/08/2014 Constitutional No fever 07/08/2014 Constitutional No insomnia 07/08/2014 Constitutional No malaise 07/08/2014 Constitutional No weight loss 07/08/2014 Constitutional No weight gain 07/08/2014 Cardiovascular edema Respiratory productive sputum 07/08/2014 Respiratory chest congestion 07/08/2014 Respiratory cough 2014 Respiratory dyspnea on exertion 07/08/2014 Gastrointestinal constipation 07/08/2014 Gastrointestinal No diarrhea 07/08/2014 Gastrointestinal No vomiting 07/08/2014 Gastrointestinal No nausea 07/08/2014 Genitourinary/Nephrology No dysuria 07/08/2014 Musculoskeletal No joint complaint 07/08/2014 Dermatologic No rash Dermatologic No sores Neurologic No alteration of consciousness 07/08/2014 Constitutional No recent illness 05/31/2014 Constitutional No anorexia 05/31/2014 Constitutional No night sweats 05/31/2014 Constitutional No chills 05/31/2014 Constitutional No diaphoresis 05/31/2014 Constitutional fatigue 0 05/31/2014 Constitutional No fever 05/31/2014 Constitutional No insomnia 05/31/2014 Constitutional No weight loss 05/31/2014 Constitutional weight gain 05/31/2014 Eyes No eye discharge Eyes No eye erythema Ears/Nose/Throat/Neck No dizziness 05/31/2014 Ears/Nose/Throat/Neck No dysphagia 05/31/2014 Ears/Nose/Throat/Neck No headache 05/31/2014 Ears/Nose/Throat/Neck No hearing loss 05/31/2014 Ears/Nose/Throat/Neck No nasal allergies 05/31/2014 Ears/Nose/Throat/Neck No sore throat 05/31/2014 Ears/Nose/Throat/Neck No postnasal drip 05/31/2014 Ears/Nose/Throat/Neck No sinus congestion 05/31/2014 Cardiovascular No chest pain/pressure 05/31/2014 Cardiovascular No dyspnea 05/31/2014 Cardiovascular edema Cardiovascular No exercise intolerance 05/31/2014 Cardiovascular No fatigue 05/31/2014 Cardiovascular No near-syncope/dizziness 05/31/2014 Respiratory No chest congestion 05/31/2014 Respiratory No chest tightness 05/31/2014 Respiratory No cough Respiratory No dyspnea 0 05/31/2014 Respiratory No snoring 0 05/31/2014 Respiratory No wheezing 05/31/2014 Gastrointestinal No abdominal pain 05/31/2014 Gastrointestinal No constipation 05/31/2014 Gastrointestinal No diarrhea 05/31/2014 Gastrointestinal No nausea 05/31/2014 Gastrointestinal No vomiting 05/31/2014 Genitourinary/Nephrology No dysuria 05/31/2014 Genitourinary/Nephrology No urinary urgenc y 05/31/2014 Genitourinary/Nephrology No urinary frequency 05/31/2014 Genitourinary/Nephrology No urinary incontinence 05/31/2014 Musculoskeletal No stiffness 05/31/2014 Musculoskeletal No swelling 05/31/2014 Musculoskeletal back pain 05/31/2014 Musculoskeletal No muscle weakness 05/31/2014 Musculoskeletal No myalgias 05/31/2014 Dermatologic No rash Dermatologic No sores Dermatologic No scar Neurologic No alteration of consciousness 05/31/2014 Psychiatric anxiety 05/16 Psychiatric depression 0 05/31/2014 Endocrine weight gain Hematologic/Lymphatic No abnormal bl eeding and bruising 05/31/2014 Psychiatric disturbances of emotion 05/31/2014 Constitutional No recent illness 04/18/2014 Constitutional No anorexia 04/18/2014 Constitutional No night sweats 04/18/2014 Constitutional No chills 04/18/2014 Constitutional No diaphoresis 04/18/2014 Constitutional No fatigue 04/18/2014 Constitutional No fever 04/18/2014 Constitutional No insomnia 04/18/2014 Constitutional No malaise 04/18/2014 Constitutional No weight loss 04/18/2014 Constitutional No weight gain 04/18/2014 Eyes No eye discharge Eyes No eye erythema 08/2013 Ears/Nose/Throat/Neck No dizziness 04/18/2014 Ears/Nose/Throat/Neck No headache 04/18/2014 Ears/Nose/Throat/Neck nasal allergies 04/18/2014 Ears/Nose/Throat/Neck No nasal discharge 04/18/2014 Cardiovascular No chest pain/pressure 04/18/2014 Cardiovascular No dyspnea 04/18/2014 Cardiovascular No edema 04/18/2014 Respiratory No cough 08/2013 Gastrointestinal No abdominal pain 04/18/2014 Gastrointestinal No constipation 04/18/2014 Gastrointestinal No diarrhea 04/18/2014 Gastrointestinal No vomiting 04/18/2014 Genitourinary/Nephrology No dysuria 04/18/2014 Musculoskeletal back pain 04/18/2014 Dermatologic sores 04/18 Neurologic No alteration of consciousness 04/18/2014 Psychiatric anxiety 08/2013 Psychiatric depression 1 06/19/2013 Constitutional No recent illness 03/05/2014 Constitutional No anorexia 03/05/2014 Constitutional No night sweats 03/05/2014 Constitutional No chills 03/05/2014 Constitutional No diaphoresis 03/05/2014 Constitutional No fatigue 03/05/2014 Constitutional No fever 03/05/2014 Constitutional No insomnia 03/05/2014 Constitutional No malaise 03/05/2014 Constitutional No weight loss 03/05/2014 Constitutional No weight gain 03/05/2014 Eyes No eye discharge Eyes No eye erythema Ears/Nose/Throat/Neck No dizziness 03/05/2014 Ears/Nose/Throat/Neck No headache 03/05/2014 Ears/Nose/Throat/Neck nasal allergies 03/05/2014 Ears/Nose/Throat/Neck No nasal discharge 03/05/2014 Cardiovascular No chest pain/pressure 03/05/2014 Cardiovascular No dyspnea 03/05/2014 Cardiovascular No edema 03/05/2014 Respiratory No cough Musculoskeletal back pain 03/05/2014 Gastrointestinal No abdominal pain 03/05/2014 Gastrointestinal No constipation 03/05/2014 Gastrointestinal No diarrhea 03/05/2014 Gastrointestinal No nausea 03/05/2014 Gastrointestinal No vomiting 03/05/2014 Genitourinary/Nephrology No dysuria 03/05/2014 Neurologic No alteration of consciousness 03/05/2014 Dermatologic sores 03/05 Psychiatric depression 1 Psychiatric anxiety 02/14 Constitutional No recent illness 01/29/2014 Constitutional No anorexia 01/29/2014 Constitutional No night sweats 01/29/2014 Constitutional No chills 01/29/2014 Constitutional No diaphoresis 01/29/2014 Constitutional fatigue 0 01/29/2014 Constitutional No fever 01/29/2014 Constitutional No insomnia 01/29/2014 Ears/Nose/Throat/Neck No dizziness 01/29/2014 Ears/Nose/Throat/Neck No dysphagia 01/29/2014 Ears/Nose/Throat/Neck No headache 01/29/2014 Ears/Nose/Throat/Neck No hearing loss 01/29/2014 Ears/Nose/Throat/Neck No nasal allergies 01/29/2014 Ears/Nose/Throat/Neck No sore throat 01/29/2014 Ears/Nose/Throat/Neck No postnasal drip 01/29/2014 Ears/Nose/Throat/Neck No sinus congestion 01/29/2014 Cardiovascular No chest pain/pressure 01/29/2014 Cardiovascular No dyspnea 01/29/2014 Cardiovascular edema Cardiovascular No exercise intolerance 01/29/2014 Cardiovascular No fatigue 01/29/2014 Cardiovascular No near-syncope/dizziness 01/29/2014 Respiratory No chest congestion 01/29/2014 Respiratory No chest tightness 01/29/2014 Respiratory No cough Respiratory No dyspnea 0 01/29/2014 Respiratory No snoring 0 01/29/2014 Respiratory No wheezing 01/29/2014 Gastrointestinal No abdominal pain 01/29/2014 Gastrointestinal No constipation 01/29/2014 Gastrointestinal No diarrhea 01/29/2014 Gastrointestinal No nausea 01/29/2014 Gastrointestinal No vomiting 01/29/2014 Genitourinary/Nephrology No urinary urgenc y 01/29/2014 Genitourinary/Nephrology No urinary frequency 01/29/2014 Genitourinary/Nephrology No urinary incontinence 01/29/2014 Musculoskeletal No stiffness 01/29/2014 Musculoskeletal No swelling 01/29/2014 Musculoskeletal No muscle weakness 01/29/2014 Musculoskeletal No myalgias 01/29/2014 Dermatologic No rash Dermatologic No scar Psychiatric anxiety 01/14 Psychiatric depression 0 01/29/2014 Constitutional No weight loss 01/29/2014 Constitutional weight gain 01/29/2014 Eyes No eye discharge Eyes No eye erythema Genitourinary/Nephrology No dysuria 01/29/2014 Dermatologic No sores Neurologic No alteration of consciousness 01/29/2014 Musculoskeletal back pain 01/29/2014 Hematologic/Lymphatic No abnormal bl eeding and bruising 01/29/2014 Endocrine weight gain Constitutional No recent illness 10/23/2013 Constitutional No anorexia 10/23/2013 Constitutional No night sweats 10/23/2013 Constitutional No chills 10/23/2013 Constitutional No diaphoresis 10/23/2013 Constitutional No fatigue 10/23/2013 Constitutional No fever 10/23/2013 Constitutional No insomnia 10/23/2013 Constitutional malaise 0 10/23/2013 Cardiovascular No chest pain/pressure 10/23/2013 Cardiovascular No dyspnea 10/23/2013 Cardiovascular edema 02/2014 Cardiovascular No exercise intolerance 10/23/2013 Cardiovascular No fatigue 10/23/2013 Cardiovascular No near-syncope/dizziness 10/23/2013 Respiratory No chest tightness 10/23/2013 Respiratory No cigarette smoking 10/23/2013 Respiratory No cough 02/2014 Respiratory No dyspnea 0 10/23/2013 Respiratory No pedal edema 10/23/2013 Respiratory No snoring 0 10/23/2013 Respiratory No wheezing 10/23/2013 Psychiatric anxiety 10/14 Psychiatric No depression 10/23/2013 Gastrointestinal No abdominal pain 10/23/2013 Gastrointestinal No constipation 10/23/2013 Gastrointestinal No diarrhea 10/23/2013 Gastrointestinal No gastroesophageal reflu x 10/23/2013 Gastrointestinal No nausea 10/23/2013 Musculoskeletal No stiffness 10/23/2013 Musculoskeletal No swelling 10/23/2013 Musculoskeletal No muscle weakness 10/23/2013 Musculoskeletal No myalgias 10/23/2013 Dermatologic No rash 02/2014 Dermatologic No scar 02/2014 Eyes No blindness 2013 Eyes No vision change Ears/Nose/Throat/Neck No dental pain 10/23/2013 Ears/Nose/Throat/Neck No dizziness 10/23/2013 Ears/Nose/Throat/Neck No dysphagia 10/23/2013 Ears/Nose/Throat/Neck No headache 10/23/2013 Ears/Nose/Throat/Neck No hearing loss 10/23/2013 Ears/Nose/Throat/Neck No nasal allergies 10/23/2013 Ears/Nose/Throat/Neck No sore throat 10/23/2013 Ears/Nose/Throat/Neck No postnasal drip 10/23/2013 Ears/Nose/Throat/Neck No sinus congestion 10/23/2013 Respiratory No chest congestion 10/23/2013 Gastrointestinal No vomiting 10/23/2013 Genitourinary/Nephrology No urinary urgenc y 10/23/2013 Genitourinary/Nephrology No urinary frequency 10/23/2013 Genitourinary/Nephrology No urinary incontinence 10/23/2013 Constitutional No recent illness 10/11/2013 Constitutional No anorexia 10/11/2013 Constitutional No night sweats 10/11/2013 Constitutional No chills 10/11/2013 Constitutional No diaphoresis 10/11/2013 Constitutional No fatigue 10/11/2013 Constitutional No fever 10/11/2013 Constitutional No insomnia 10/11/2013 Constitutional No malaise 10/11/2013 Musculoskeletal No joint complaint 10/11/2013 Constitutional No recent illness 09/17/2013 Constitutional No anorexia 09/17/2013 Constitutional No night sweats 09/17/2013 Constitutional No chills 09/17/2013 Constitutional No diaphoresis 09/17/2013 Constitutional No fatigue 09/17/2013 Constitutional No fever 09/17/2013 Constitutional No insomnia 09/17/2013 Constitutional malaise 0 09/17/2013 Cardiovascular No chest pain/pressure 09/17/2013 Cardiovascular No dyspnea 09/17/2013 Cardiovascular edema 09/2013 Cardiovascular No exercise intolerance 09/17/2013 Cardiovascular No fatigue 09/17/2013 Cardiovascular No near-syncope/dizziness 09/17/2013 Cardiovascular hypertension 09/17/2013 Psychiatric No anxiety 0 09/17/2013 Psychiatric No depression 09/17/2013 Respiratory No chest tightness 09/17/2013 Respiratory No cigarette smoking 09/17/2013 Respiratory No cough 09/2013 Respiratory No dyspnea 0 09/17/2013 Respiratory No pedal edema 09/17/2013 Respiratory No snoring 0 09/17/2013 Respiratory No wheezing 09/17/2013 Constitutional No recent illness 08/27/2013 Constitutional No anorexia 08/27/2013 Constitutional No night sweats 08/27/2013 Constitutional No chills 08/27/2013 Constitutional No diaphoresis 08/27/2013 Constitutional No fatigue 08/27/2013 Constitutional No fever 08/27/2013 Constitutional No insomnia 08/27/2013 Constitutional No malaise 08/27/2013 Constitutional No night sweats 08/20/2013 Constitutional No chills 08/20/2013 Constitutional No fatigue 08/20/2013 Constitutional No fever 08/20/2013 Ears/Nose/Throat/Neck No dental pain 08/20/2013 Ears/Nose/Throat/Neck No dizziness 08/20/2013 Ears/Nose/Throat/Neck No dysphagia 08/20/2013 Ears/Nose/Throat/Neck No headache 08/20/2013 Ears/Nose/Throat/Neck No hearing loss 08/20/2013 Ears/Nose/Throat/Neck No nasal allergies 08/20/2013 Ears/Nose/Throat/Neck No sore throat 08/20/2013 Ears/Nose/Throat/Neck No postnasal drip 08/20/2013 Ears/Nose/Throat/Neck No sinus congestion 08/20/2013 Respiratory No chest congestion 08/20/2013 Respiratory No chest tightness 08/20/2013 Respiratory No cough 11/2013 Respiratory No dyspnea 0 08/20/2013 Gastrointestinal No anorexia 08/20/2013 Gastrointestinal No constipation 08/20/2013 Gastrointestinal No diarrhea 08/20/2013 Gastrointestinal No nausea 08/20/2013 Gastrointestinal No vomiting 08/20/2013 Genitourinary/Nephrology No urinary urgenc y 08/20/2013 Genitourinary/Nephrology No urinary frequency 08/20/2013 Genitourinary/Nephrology No urinary incontinence 08/20/2013 Dermatologic No rash 11/2013 Psychiatric anxiety 04/11/2013 Psychiatric depression 0 08/20/2013 Psychiatric disturbances of emotion 08/20/2013 Constitutional No night sweats 07/10/2013 Constitutional No chills 07/10/2013 Constitutional No fatigue 07/10/2013 Constitutional No fever 07/10/2013 Ears/Nose/Throat/Neck No dental pain 07/10/2013 Ears/Nose/Throat/Neck No dizziness 07/10/2013 Ears/Nose/Throat/Neck No dysphagia 07/10/2013 Ears/Nose/Throat/Neck No headache 07/10/2013 Ears/Nose/Throat/Neck No hearing loss 07/10/2013 Ears/Nose/Throat/Neck No nasal allergies 07/10/2013 Ears/Nose/Throat/Neck No sore throat 07/10/2013 Ears/Nose/Throat/Neck No postnasal drip 07/10/2013 Ears/Nose/Throat/Neck No sinus congestion 07/10/2013 Respiratory No chest congestion 07/10/2013 Respiratory No chest tightness 07/10/2013 Respiratory No cough Respiratory No dyspnea 0 07/10/2013 Gastrointestinal No anorexia 07/10/2013 Gastrointestinal No constipation 07/10/2013 Gastrointestinal No diarrhea 07/10/2013 Gastrointestinal No nausea 07/10/2013 Gastrointestinal No vomiting 07/10/2013 Genitourinary/Nephrology No urinary urgenc y 07/10/2013 Genitourinary/Nephrology No urinary frequency 07/10/2013 Genitourinary/Nephrology No urinary incontinence 07/10/2013 Dermatologic No rash Psychiatric anxiety 06/17 Psychiatric depression 0 07/10/2013 Psychiatric disturbances of emotion 07/10/2013 Constitutional No chills 03/20/2013 Constitutional No fever 03/20/2013 Eyes No eye erythema 09/2012 Eyes No eye discharge Cardiovascular No chest pain/pressure 03/20/2013 Gastrointestinal No nausea 03/20/2013 Gastrointestinal No vomiting 03/20/2013 Gastrointestinal No abdominal pain 03/20/2013 Gastrointestinal No constipation 03/20/2013 Gastrointestinal No diarrhea 03/20/2013 Genitourinary/Nephrology No dysuria 03/20/2013 Dermatologic No rash 09/2012 Dermatologic No sores Genitourinary/Nephrology urinary frequency 03/20/2013 Genitourinary/Nephrology urinary urgency 03/20/2013 Ears/Nose/Throat/Neck postnasal drip 03/20/2013 Ears/Nose/Throat/Neck nasal allergies 03/20/2013 Ears/Nose/Throat/Neck nasal discharge 03/20/2013 Constitutional No night sweats 03/07/2013 Constitutional No chills 03/07/2013 Constitutional No fatigue 03/07/2013 Constitutional No fever 03/07/2013 Ears/Nose/Throat/Neck No dental pain 03/07/2013 Ears/Nose/Throat/Neck No dizziness 03/07/2013 Ears/Nose/Throat/Neck No dysphagia 03/07/2013 Ears/Nose/Throat/Neck No headache 03/07/2013 Ears/Nose/Throat/Neck No hearing loss 03/07/2013 Ears/Nose/Throat/Neck No nasal allergies 03/07/2013 Ears/Nose/Throat/Neck No sore throat 03/07/2013 Ears/Nose/Throat/Neck No postnasal drip 03/07/2013 Ears/Nose/Throat/Neck No sinus congestion 03/07/2013 Respiratory No chest congestion 03/07/2013 Respiratory No chest tightness 03/07/2013 Respiratory No cough Respiratory No dyspnea 1 Gastrointestinal No anorexia 03/07/2013 Gastrointestinal No constipation 03/07/2013 Gastrointestinal No diarrhea 03/07/2013 Gastrointestinal No nausea 03/07/2013 Gastrointestinal No vomiting 03/07/2013 Genitourinary/Nephrology No urinary urgenc y 03/07/2013 Genitourinary/Nephrology No urinary frequency 03/07/2013 Genitourinary/Nephrology No urinary incontinence 03/07/2013 Dermatologic No rash Psychiatric anxiety 02/14 Psychiatric depression 1 Constitutional No night sweats 01/22/2013 Constitutional No chills 01/22/2013 Constitutional No fatigue 01/22/2013 Constitutional No fever 01/22/2013 Ears/Nose/Throat/Neck No dental pain 01/22/2013 Ears/Nose/Throat/Neck No dizziness 01/22/2013 Ears/Nose/Throat/Neck No dysphagia 01/22/2013 Ears/Nose/Throat/Neck No headache 01/22/2013 Ears/Nose/Throat/Neck No hearing loss 01/22/2013 Ears/Nose/Throat/Neck No nasal allergies 01/22/2013 Ears/Nose/Throat/Neck No sore throat 01/22/2013 Ears/Nose/Throat/Neck No postnasal drip 01/22/2013 Ears/Nose/Throat/Neck No sinus congestion 01/22/2013 Respiratory No chest congestion 01/22/2013 Respiratory No chest tightness 01/22/2013 Respiratory No cough 01/2013 Respiratory No dyspnea 0 01/22/2013 Gastrointestinal No anorexia 01/22/2013 Gastrointestinal No constipation 01/22/2013 Gastrointestinal No diarrhea 01/22/2013 Gastrointestinal No nausea 01/22/2013 Gastrointestinal No vomiting 01/22/2013 Genitourinary/Nephrology No urinary urgenc y 01/22/2013 Genitourinary/Nephrology No urinary frequency 01/22/2013 Genitourinary/Nephrology No urinary incontinence 01/22/2013 Dermatologic No rash 01/2013 Psychiatric anxiety 0901/2013 Psychiatric depression 0 01/22/2013 Constitutional recent illness 08/22/2012 Constitutional No anorexia 08/22/2012 Constitutional No night sweats 08/22/2012 Constitutional No chills 08/22/2012 Constitutional No diaphoresis 08/22/2012 Constitutional No fatigue 08/22/2012 Constitutional No fever 08/22/2012 Constitutional No insomnia 08/22/2012 Eyes No eye discharge Eyes No eye erythema 01/2013 Ears/Nose/Throat/Neck No dizziness 08/22/2012 Ears/Nose/Throat/Neck headache 08/22/2012 Ears/Nose/Throat/Neck nasal allergies 08/22/2012 Ears/Nose/Throat/Neck nasal discharge 08/22/2012 Ears/Nose/Throat/Neck No otalgia 08/22/2012 Ears/Nose/Throat/Neck sinus congestion 08/22/2012 Ears/Nose/Throat/Neck sore throat 08/22/2012 Cardiovascular No chest pain/pressure 08/22/2012 Gastrointestinal No abdominal pain 08/22/2012 Gastrointestinal No diarrhea 08/22/2012 Gastrointestinal No constipation 08/22/2012 Gastrointestinal No nausea 08/22/2012 Gastrointestinal No vomiting 08/22/2012 Genitourinary/Nephrology No dysuria 08/22/2012 Musculoskeletal No joint complaint 08/22/2012 Dermatologic No rash 01/2013 Dermatologic No sores Constitutional No night sweats 08/14/2012 Constitutional No chills 08/14/2012 Constitutional No fatigue 08/14/2012 Ears/Nose/Throat/Neck No sinus congestion 08/14/2012 Constitutional No fever 08/14/2012 Respiratory No chest congestion 08/14/2012 Respiratory No chest tightness 08/14/2012 Respiratory No cough 05/2012 Respiratory No dyspnea 0 08/14/2012 Gastrointestinal No anorexia 08/14/2012 Gastrointestinal No constipation 08/14/2012 Gastrointestinal No diarrhea 08/14/2012 Gastrointestinal No nausea 08/14/2012 Gastrointestinal No vomiting 08/14/2012 Genitourinary/Nephrology No urinary urgenc y 08/14/2012 Genitourinary/Nephrology No urinary frequency 08/14/2012 Genitourinary/Nephrology No urinary incontinence 08/14/2012 Dermatologic No rash 05/2012 Psychiatric anxiety 0405/2012 Psychiatric depression 0 08/14/2012 Ears/Nose/Throat/Neck No dental pain 08/14/2012 Ears/Nose/Throat/Neck No dizziness 08/14/2012 Ears/Nose/Throat/Neck No dysphagia 08/14/2012 Ears/Nose/Throat/Neck No headache 08/14/2012 Ears/Nose/Throat/Neck No hearing loss 08/14/2012 Ears/Nose/Throat/Neck No nasal allergies 08/14/2012 Ears/Nose/Throat/Neck No sore throat 08/14/2012 Ears/Nose/Throat/Neck No postnasal drip 08/14/2012 Constitutional recent illness 05/22/2012 Constitutional No anorexia 05/22/2012 Constitutional No night sweats 05/22/2012 Constitutional No chills 05/22/2012 Constitutional No diaphoresis 05/22/2012 Constitutional fatigue 0 05/22/2012 Constitutional No fever 05/22/2012 Eyes No eye discharge Eyes No eye erythema 11/2012 Cardiovascular No chest pain/pressure 05/22/2012 Gastrointestinal No nausea 05/22/2012 Gastrointestinal No abdominal pain 05/22/2012 Gastrointestinal No constipation 05/22/2012 Gastrointestinal No diarrhea 05/22/2012 Gastrointestinal No vomiting 05/22/2012 Genitourinary/Nephrology No dysuria 05/22/2012 Dermatologic No sores Dermatologic No rash 11/2012 Musculoskeletal No joint complaint 05/22/2012 Constitutional No night sweats 04/17/2012 Constitutional No chills 04/17/2012 Constitutional No fatigue 04/17/2012 Constitutional No fever 04/17/2012 Respiratory No chest congestion 04/17/2012 Respiratory No chest tightness 04/17/2012 Respiratory No cough 07/2011 Respiratory No dyspnea 1 06/18/2011 Gastrointestinal No anorexia 04/17/2012 Gastrointestinal No constipation 04/17/2012 Gastrointestinal No diarrhea 04/17/2012 Gastrointestinal No nausea 04/17/2012 Gastrointestinal No vomiting 04/17/2012 Genitourinary/Nephrology No urinary urgenc y 04/17/2012 Genitourinary/Nephrology No urinary frequency 04/17/2012 Genitourinary/Nephrology No urinary incontinence 04/17/2012 Dermatologic No rash 07/2011 Dermatologic No sores Psychiatric anxiety 07/2011 Psychiatric depression 1 06/18/2011 Eyes cataract 04/17/2012 Ears/Nose/Throat/Neck dizziness 04/17/2012 Ears/Nose/Throat/Neck headache 04/17/2012 Constitutional No night sweats 12/01/2011 Constitutional No chills 12/01/2011 Constitutional No fatigue 12/01/2011 Constitutional No fever 12/01/2011 Respiratory No chest congestion 12/01/2011 Respiratory No chest tightness 12/01/2011 Respiratory No cough Respiratory No dyspnea 0 12/01/2011 Gastrointestinal No anorexia 12/01/2011 Gastrointestinal No constipation 12/01/2011 Gastrointestinal No diarrhea 12/01/2011 Gastrointestinal No nausea 12/01/2011 Gastrointestinal No vomiting 12/01/2011 Genitourinary/Nephrology No urinary urgenc y 12/01/2011 Genitourinary/Nephrology No urinary frequency 12/01/2011 Genitourinary/Nephrology No urinary incontinence 12/01/2011 Dermatologic No rash Psychiatric anxiety 11/13 Psychiatric depression 0 12/01/2011 Cardiovascular No chest pain/pressure 12/01/2011 Cardiovascular No edema 12/01/2011 Ears/Nose/Throat/Neck headache 08/11/2011 Ears/Nose/Throat/Neck dizziness 08/11/2011 Eyes cataract 08/11/2011 Respiratory No dyspnea 0 08/11/2011 Gastrointestinal No vomiting 08/11/2011 Gastrointestinal No nausea 08/11/2011 Constitutional No fatigue 08/11/2011 Constitutional No fever 08/11/2011 Gastrointestinal No diarrhea 08/11/2011 Gastrointestinal No constipation 08/11/2011 Constitutional No night sweats 08/11/2011 Constitutional No chills 08/11/2011 Respiratory No chest congestion 08/11/2011 Respiratory No chest tightness 08/11/2011 Respiratory No cough Gastrointestinal No anorexia 08/11/2011 Genitourinary/Nephrology No urinary urgenc y 08/11/2011 Genitourinary/Nephrology No urinary frequency 08/11/2011 Genitourinary/Nephrology No urinary incontinence 08/11/2011 Dermatologic No rash Dermatologic No sores Psychiatric anxiety 07/15 Psychiatric depression 0 08/11/2011 Constitutional No night sweats 06/01/2011 Constitutional No chills 06/01/2011 Constitutional No fatigue 06/01/2011 Constitutional No fever 06/01/2011 Eyes vision change 06/01 Cardiovascular No chest pain/pressure 06/01/2011 Cardiovascular No dyspnea 06/01/2011 Cardiovascular No edema 06/01/2011 Respiratory No chest congestion 06/01/2011 Respiratory No chest tightness 06/01/2011 Respiratory No cough Gastrointestinal No anorexia 06/01/2011 Gastrointestinal No constipation 06/01/2011 Gastrointestinal No diarrhea 06/01/2011 Genitourinary/Nephrology No urinary urgenc y 06/01/2011 Genitourinary/Nephrology No urinary frequency 06/01/2011 Genitourinary/Nephrology No urinary incontinence 06/01/2011 Dermatologic No rash Dermatologic No sores Psychiatric anxiety 05/16 Psychiatric depression 0 06/01/2011 Gastrointestinal gas and bloating 06/01/2011 Constitutional recent illness 06/01/2011 Constitutional No night sweats 05/18/2011 Constitutional No chills 05/18/2011 Constitutional No fatigue 05/18/2011 Constitutional No fever 05/18/2011 Eyes vision change 05/18 Cardiovascular No chest pain/pressure 05/18/2011 Cardiovascular No dyspnea 05/18/2011 Cardiovascular No edema 05/18/2011 Respiratory No cough 07/2011 Respiratory No chest tightness 05/18/2011 Respiratory No chest congestion 05/18/2011 Gastrointestinal No anorexia 05/18/2011 Gastrointestinal No constipation 05/18/2011 Gastrointestinal No diarrhea 05/18/2011 Genitourinary/Nephrology No urinary urgenc y 05/18/2011 Genitourinary/Nephrology No urinary frequency 05/18/2011 Genitourinary/Nephrology No urinary incontinence 05/18/2011 Dermatologic No rash 07/2011 Dermatologic No sores Psychiatric anxiety 07/2011 Psychiatric depression 0 05/18/2011 System Result Effective Dates Constitutional No recent illness 10/19/2016 Constitutional No anorexia 10/19/2016 Constitutional No night sweats 10/19/2016 Constitutional No chills 10/19/2016 Constitutional No diaphoresis 10/19/2016 Constitutional No fatigue 10/19/2016 Constitutional No fever 10/19/2016 Constitutional No insomnia 10/19/2016 Constitutional No malaise 10/19/2016 Constitutional No weight loss 10/19/2016 Constitutional No weight gain 10/19/2016 Eyes No eye discharge Eyes No eye erythema 10/2016 Ears/Nose/Throat/Neck No dental pain 10/19/2016 Ears/Nose/Throat/Neck No dizziness 10/19/2016 Ears/Nose/Throat/Neck No dysphagia 10/19/2016 Ears/Nose/Throat/Neck No headache 10/19/2016 Ears/Nose/Throat/Neck No hearing loss 10/19/2016 Ears/Nose/Throat/Neck nasal allergies 10/19/2016 Ears/Nose/Throat/Neck nasal discharge 10/19/2016 Ears/Nose/Throat/Neck No otalgia 10/19/2016 Ears/Nose/Throat/Neck No postnasal drip 10/19/2016 Ears/Nose/Throat/Neck No sinus congestion 10/19/2016 Ears/Nose/Throat/Neck No sore throat 10/19/2016 Cardiovascular No chest pain/pressure 10/19/2016 Respiratory No chest congestion 10/19/2016 Respiratory No chest tightness 10/19/2016 Respiratory No cough 10/2016 Respiratory No dyspnea 0 10/19/2016 Gastrointestinal No abdominal pain 10/19/2016 Gastrointestinal No constipation 10/19/2016 Gastrointestinal No diarrhea 10/19/2016 Gastrointestinal No nausea 10/19/2016 Gastrointestinal No vomiting 10/19/2016 Genitourinary/Nephrology No dysuria 10/19/2016 Genitourinary/Nephrology No urinary urgenc y 10/19/2016 Genitourinary/Nephrology No urinary frequency 10/19/2016 Genitourinary/Nephrology No urinary incontinence 10/19/2016 Musculoskeletal joint complaint 10/19/2016 Dermatologic No rash 10/2016 Neurologic No alteration of consciousness 10/19/2016 Psychiatric anxiety 10/2016 Psychiatric depression 0 10/19/2016 Psychiatric disturbances of emotion 10/19/2016 Psychiatric No suicidality 10/19/2016 Constitutional recent illness 08/09/2016 Constitutional No anorexia 08/09/2016 Constitutional No night sweats 08/09/2016 Constitutional No chills 08/09/2016 Constitutional diaphoresis 08/09/2016 Constitutional fatigue 0 08/09/2016 Constitutional fever Constitutional insomnia 08/09/2016 Constitutional malaise 0 08/09/2016 Constitutional No weight loss 08/09/2016 Constitutional No weight gain 08/09/2016 Respiratory No foul smelling sputum 08/09/2016 Respiratory No chest congestion 08/09/2016 Respiratory cough 2016 Cardiovascular No chest pain/pressure 08/09/2016 Cardiovascular No dyspnea 08/09/2016 Cardiovascular No exercise intolerance 08/09/2016 Eyes No eye discharge Eyes No eye erythema Ears/Nose/Throat/Neck No dizziness 08/09/2016 Ears/Nose/Throat/Neck No headache 08/09/2016 Ears/Nose/Throat/Neck nasal discharge 08/09/2016 Ears/Nose/Throat/Neck otalgia 08/09/2016 Ears/Nose/Throat/Neck sinus congestion 08/09/2016 Ears/Nose/Throat/Neck sore throat 08/09/2016 Gastrointestinal No abdominal pain 08/09/2016 Genitourinary/Nephrology No dysuria 08/09/2016 Musculoskeletal myalgias 08/09/2016 Dermatologic No rash Neurologic No alteration of consciousness 08/09/2016 Constitutional recent illness 07/20/2016 Constitutional No anorexia 07/20/2016 Constitutional No night sweats 07/20/2016 Constitutional No chills 07/20/2016 Constitutional No diaphoresis 07/20/2016 Constitutional fatigue 0 07/20/2016 Constitutional No fever 07/20/2016 Constitutional No insomnia 07/20/2016 Constitutional No malaise 07/20/2016 Constitutional No weight loss 07/20/2016 Constitutional No weight gain 07/20/2016 Eyes No eye discharge Eyes No eye erythema 11/2016 Ears/Nose/Throat/Neck No dizziness 07/20/2016 Ears/Nose/Throat/Neck No headache 07/20/2016 Ears/Nose/Throat/Neck nasal discharge 07/20/2016 Ears/Nose/Throat/Neck No otalgia 07/20/2016 Ears/Nose/Throat/Neck sinus congestion 07/20/2016 Cardiovascular No chest pain/pressure 07/20/2016 Respiratory cough 2016 Gastrointestinal No abdominal pain 07/20/2016 Gastrointestinal No constipation 07/20/2016 Gastrointestinal No diarrhea 07/20/2016 Genitourinary/Nephrology No dysuria 07/20/2016 Musculoskeletal No joint complaint 07/20/2016 Dermatologic No rash 11/2016 Neurologic No alteration of consciousness 07/20/2016 Ears/Nose/Throat/Neck No dental pain 07/20/2016 Ears/Nose/Throat/Neck No dysphagia 07/20/2016 Ears/Nose/Throat/Neck No hearing loss 07/20/2016 Ears/Nose/Throat/Neck nasal allergies 07/20/2016 Ears/Nose/Throat/Neck No postnasal drip 07/20/2016 Ears/Nose/Throat/Neck No sore throat 07/20/2016 Respiratory No chest congestion 07/20/2016 Respiratory No chest tightness 07/20/2016 Respiratory No dyspnea 0 07/20/2016 Gastrointestinal No nausea 07/20/2016 Gastrointestinal No vomiting 07/20/2016 Genitourinary/Nephrology No urinary urgenc y 07/20/2016 Genitourinary/Nephrology No urinary frequency 07/20/2016 Genitourinary/Nephrology No urinary incontinence 07/20/2016 Psychiatric anxiety 11/2016 Psychiatric depression 0 07/20/2016 Psychiatric disturbances of emotion 07/20/2016 Psychiatric No suicidality 07/20/2016 Constitutional recent illness 05/27/2016 Constitutional No anorexia 05/27/2016 Constitutional No night sweats 05/27/2016 Constitutional No chills 05/27/2016 Constitutional No diaphoresis 05/27/2016 Constitutional No fever 05/27/2016 Constitutional No insomnia 05/27/2016 Constitutional No malaise 05/27/2016 Constitutional No weight loss 05/27/2016 Constitutional No weight gain 05/27/2016 Constitutional fatigue 0 05/27/2016 Eyes No eye erythema 04/2017 Eyes No eye discharge Ears/Nose/Throat/Neck dizziness 05/27/2016 Ears/Nose/Throat/Neck headache 05/27/2016 Ears/Nose/Throat/Neck nasal discharge 05/27/2016 Ears/Nose/Throat/Neck No otalgia 05/27/2016 Ears/Nose/Throat/Neck sinus congestion 05/27/2016 Cardiovascular No chest pain/pressure 05/27/2016 Respiratory cough 2016 Gastrointestinal No abdominal pain 05/27/2016 Gastrointestinal No constipation 05/27/2016 Gastrointestinal No diarrhea 05/27/2016 Genitourinary/Nephrology No dysuria 05/27/2016 Musculoskeletal No joint complaint 05/27/2016 Dermatologic No rash 04/2017 Neurologic No alteration of consciousness 05/27/2016 Constitutional No night sweats 04/29/2016 Constitutional No chills 04/29/2016 Constitutional No fatigue 04/29/2016 Constitutional No fever 04/29/2016 Ears/Nose/Throat/Neck No dental pain 04/29/2016 Ears/Nose/Throat/Neck No dizziness 04/29/2016 Ears/Nose/Throat/Neck No dysphagia 04/29/2016 Ears/Nose/Throat/Neck No headache 04/29/2016 Ears/Nose/Throat/Neck No hearing loss 04/29/2016 Ears/Nose/Throat/Neck No nasal allergies 04/29/2016 Ears/Nose/Throat/Neck No postnasal drip 04/29/2016 Ears/Nose/Throat/Neck No sinus congestion 04/29/2016 Ears/Nose/Throat/Neck No sore throat 04/29/2016 Respiratory No chest congestion 04/29/2016 Respiratory No chest tightness 04/29/2016 Respiratory No cough Respiratory No dyspnea 1 06/30/2015 Gastrointestinal No anorexia 04/29/2016 Gastrointestinal No constipation 04/29/2016 Gastrointestinal No diarrhea 04/29/2016 Gastrointestinal No nausea 04/29/2016 Gastrointestinal No vomiting 04/29/2016 Genitourinary/Nephrology No urinary urgenc y 04/29/2016 Genitourinary/Nephrology No urinary frequency 04/29/2016 Genitourinary/Nephrology No urinary incontinence 04/29/2016 Dermatologic No rash Psychiatric anxiety 04/15 Psychiatric depression 1 06/30/2015 Psychiatric disturbances of emotion 04/29/2016 Psychiatric No suicidality 04/29/2016 Constitutional No night sweats 04/02/2016 Constitutional No chills 04/02/2016 Constitutional No fatigue 04/02/2016 Constitutional No fever 04/02/2016 Ears/Nose/Throat/Neck No dental pain 04/02/2016 Ears/Nose/Throat/Neck No dizziness 04/02/2016 Ears/Nose/Throat/Neck No dysphagia 04/02/2016 Ears/Nose/Throat/Neck No headache 04/02/2016 Ears/Nose/Throat/Neck No hearing loss 04/02/2016 Ears/Nose/Throat/Neck No nasal allergies 04/02/2016 Ears/Nose/Throat/Neck No postnasal drip 04/02/2016 Ears/Nose/Throat/Neck No sinus congestion 04/02/2016 Ears/Nose/Throat/Neck No sore throat 04/02/2016 Respiratory No chest congestion 04/02/2016 Respiratory No chest tightness 04/02/2016 Respiratory No cough Respiratory No dyspnea 1 06/02/2015 Gastrointestinal No anorexia 04/02/2016 Gastrointestinal No constipation 04/02/2016 Gastrointestinal No diarrhea 04/02/2016 Gastrointestinal No nausea 04/02/2016 Gastrointestinal No vomiting 04/02/2016 Genitourinary/Nephrology No urinary urgenc y 04/02/2016 Genitourinary/Nephrology No urinary frequency 04/02/2016 Genitourinary/Nephrology No urinary incontinence 04/02/2016 Dermatologic No rash Psychiatric anxiety 03/16 Psychiatric depression 1 06/02/2015 Psychiatric disturbances of emotion 04/02/2016 Psychiatric No suicidality 04/02/2016 Constitutional No night sweats 03/18/2016 Constitutional No chills 03/18/2016 Constitutional No fatigue 03/18/2016 Constitutional No fever 03/18/2016 Ears/Nose/Throat/Neck No dental pain 03/18/2016 Ears/Nose/Throat/Neck No dizziness 03/18/2016 Ears/Nose/Throat/Neck No dysphagia 03/18/2016 Ears/Nose/Throat/Neck No headache 03/18/2016 Ears/Nose/Throat/Neck No hearing loss 03/18/2016 Ears/Nose/Throat/Neck No nasal allergies 03/18/2016 Ears/Nose/Throat/Neck No sore throat 03/18/2016 Ears/Nose/Throat/Neck No postnasal drip 03/18/2016 Ears/Nose/Throat/Neck No sinus congestion 03/18/2016 Respiratory No chest congestion 03/18/2016 Respiratory No chest tightness 03/18/2016 Respiratory No cough 07/2015 Respiratory No dyspnea 1 05/18/2015 Gastrointestinal No anorexia 03/18/2016 Gastrointestinal No constipation 03/18/2016 Gastrointestinal No diarrhea 03/18/2016 Gastrointestinal No nausea 03/18/2016 Gastrointestinal No vomiting 03/18/2016 Genitourinary/Nephrology No urinary urgenc y 03/18/2016 Genitourinary/Nephrology No urinary frequency 03/18/2016 Genitourinary/Nephrology No urinary incontinence 03/18/2016 Dermatologic No rash 07/2015 Psychiatric anxiety 07/2015 Psychiatric depression 1 05/18/2015 Psychiatric disturbances of emotion 03/18/2016 Psychiatric No suicidality 03/18/2016 Constitutional recent illness 01/26/2016 Constitutional No anorexia 01/26/2016 Constitutional No night sweats 01/26/2016 Constitutional No chills 01/26/2016 Constitutional No diaphoresis 01/26/2016 Constitutional fatigue 0 01/26/2016 Constitutional No fever 01/26/2016 Constitutional No insomnia 01/26/2016 Constitutional No malaise 01/26/2016 Constitutional No weight loss 01/26/2016 Constitutional No weight gain 01/26/2016 Eyes No eye discharge Eyes No eye erythema 04/2016 Ears/Nose/Throat/Neck No dizziness 01/26/2016 Ears/Nose/Throat/Neck headache 01/26/2016 Ears/Nose/Throat/Neck nasal allergies 01/26/2016 Ears/Nose/Throat/Neck nasal discharge 01/26/2016 Ears/Nose/Throat/Neck No otalgia 01/26/2016 Ears/Nose/Throat/Neck sinus congestion 01/26/2016 Ears/Nose/Throat/Neck sore throat 01/26/2016 Cardiovascular No chest pain/pressure 01/26/2016 Respiratory No productive sputum 01/26/2016 Respiratory chest congestion 01/26/2016 Respiratory cough 2015 Gastrointestinal No abdominal pain 01/26/2016 Genitourinary/Nephrology No dysuria 01/26/2016 Musculoskeletal No joint complaint 01/26/2016 Dermatologic No rash 04/2016 Neurologic No alteration of consciousness 01/26/2016 Constitutional No recent illness 12/25/2015 Constitutional No anorexia 12/25/2015 Constitutional No night sweats 12/25/2015 Constitutional No chills 12/25/2015 Constitutional No diaphoresis 12/25/2015 Constitutional No fatigue 12/25/2015 Constitutional No fever 12/25/2015 Constitutional No insomnia 12/25/2015 Constitutional No malaise 12/25/2015 Constitutional No weight loss 12/25/2015 Constitutional No weight gain 12/25/2015 Constitutional obesity 0 12/25/2015 Eyes No vision change Ears/Nose/Throat/Neck No headache 12/25/2015 Ears/Nose/Throat/Neck nasal allergies 12/25/2015 Ears/Nose/Throat/Neck No otalgia 12/25/2015 Ears/Nose/Throat/Neck No otitis media 12/25/2015 Ears/Nose/Throat/Neck No sinus congestion 12/25/2015 Ears/Nose/Throat/Neck No sore throat 12/25/2015 Cardiovascular No chest pain/pressure 12/25/2015 Respiratory No chest congestion 12/25/2015 Respiratory No chest tightness 12/25/2015 Respiratory No cigarette smoking 12/25/2015 Respiratory No cough 03/2016 Respiratory No dyspnea 0 12/25/2015 Respiratory No nocturnal cough 12/25/2015 Gastrointestinal constipation 12/25/2015 Gastrointestinal No diarrhea 12/25/2015 Genitourinary/Nephrology No dysuria 12/25/2015 Musculoskeletal No joint complaint 12/25/2015 Musculoskeletal No muscle weakness 12/25/2015 Musculoskeletal No myalgias 12/25/2015 Dermatologic No rash 03/2016 Dermatologic No sores Psychiatric anxiety 12/14 Psychiatric depression 0 12/25/2015 Neurologic No alteration of consciousness 12/25/2015 Endocrine No dry or coarse skin 12/25/2015 Genitourinary/Nephrology urinary frequency 12/25/2015 Gastrointestinal No constipation 12/08/2015 Gastrointestinal No diarrhea 12/08/2015 Gastrointestinal dyspepsia 12/08/2015 Gastrointestinal No vomiting 12/08/2015 Gastrointestinal nausea 12/08/2015 Gastrointestinal gastroesophageal reflux 12/08/2015 Constitutional No recent illness 12/08/2015 Constitutional No anorexia 12/08/2015 Psychiatric anxiety 11/14 Psychiatric depression 0 12/08/2015 Neurologic No alteration of consciousness 12/08/2015 Dermatologic No rash Musculoskeletal No joint complaint 12/08/2015 Eyes No eye discharge Eyes No eye erythema Ears/Nose/Throat/Neck No dizziness 12/08/2015 Ears/Nose/Throat/Neck headache 12/08/2015 Cardiovascular chest pain/pressure 12/08/2015 Respiratory No cough Genitourinary/Nephrology No dysuria 12/08/2015 Constitutional No recent illness 09/23/2015 Constitutional No anorexia 09/23/2015 Constitutional No night sweats 09/23/2015 Constitutional No chills 09/23/2015 Constitutional No diaphoresis 09/23/2015 Constitutional No fatigue 09/23/2015 Constitutional No fever 09/23/2015 Constitutional No insomnia 09/23/2015 Constitutional No malaise 09/23/2015 Constitutional No weight loss 09/23/2015 Constitutional No weight gain 09/23/2015 Constitutional obesity 0 09/23/2015 Eyes No vision change Ears/Nose/Throat/Neck No headache 09/23/2015 Ears/Nose/Throat/Neck nasal allergies 09/23/2015 Ears/Nose/Throat/Neck No otalgia 09/23/2015 Ears/Nose/Throat/Neck No otitis media 09/23/2015 Ears/Nose/Throat/Neck No sinus congestion 09/23/2015 Ears/Nose/Throat/Neck No sore throat 09/23/2015 Cardiovascular No chest pain/pressure 09/23/2015 Respiratory No chest congestion 09/23/2015 Respiratory No chest tightness 09/23/2015 Respiratory No cigarette smoking 09/23/2015 Respiratory No cough 02/2016 Respiratory dyspnea on exertion 09/23/2015 Respiratory No dyspnea 0 09/23/2015 Respiratory No nocturnal cough 09/23/2015 Gastrointestinal constipation 09/23/2015 Gastrointestinal No diarrhea 09/23/2015 Genitourinary/Nephrology No dysuria 09/23/2015 Musculoskeletal No joint complaint 09/23/2015 Musculoskeletal No muscle weakness 09/23/2015 Musculoskeletal No myalgias 09/23/2015 Dermatologic No rash 02/2016 Dermatologic No sores Psychiatric anxiety 09/13 Psychiatric depression 0 09/23/2015 Constitutional No recent illness 06/19/2015 Constitutional No anorexia 06/19/2015 Constitutional No night sweats 06/19/2015 Constitutional No chills 06/19/2015 Constitutional No diaphoresis 06/19/2015 Constitutional No fatigue 06/19/2015 Constitutional No fever 06/19/2015 Constitutional No insomnia 06/19/2015 Constitutional No malaise 06/19/2015 Constitutional No weight loss 06/19/2015 Constitutional No weight gain 06/19/2015 Constitutional obesity 0 06/19/2015 Cardiovascular No chest pain/pressure 06/19/2015 Respiratory dyspnea on exertion 06/19/2015 Respiratory No cough 08/2015 Respiratory No chest tightness 06/19/2015 Respiratory No chest congestion 06/19/2015 Respiratory No cigarette smoking 06/19/2015 Respiratory No dyspnea 0 06/19/2015 Respiratory No nocturnal cough 06/19/2015 Ears/Nose/Throat/Neck nasal discharge 06/19/2015 Ears/Nose/Throat/Neck nasal allergies 06/19/2015 Ears/Nose/Throat/Neck No headache 06/19/2015 Ears/Nose/Throat/Neck No otalgia 06/19/2015 Ears/Nose/Throat/Neck No otitis media 06/19/2015 Ears/Nose/Throat/Neck No sore throat 06/19/2015 Ears/Nose/Throat/Neck No sinus congestion 06/19/2015 Eyes No vision change Gastrointestinal constipation 06/19/2015 Gastrointestinal No diarrhea 06/19/2015 Genitourinary/Nephrology No dysuria 06/19/2015 Dermatologic No sores Dermatologic No rash 08/2015 Musculoskeletal No muscle weakness 06/19/2015 Musculoskeletal No joint complaint 06/19/2015 Musculoskeletal No myalgias 06/19/2015 Psychiatric anxiety 02/0 08/2015 Psychiatric depression 0 06/19/2015 Constitutional No recent illness 05/19/2015 Constitutional No anorexia 05/19/2015 Constitutional No night sweats 05/19/2015 Constitutional No chills 05/19/2015 Constitutional No diaphoresis 05/19/2015 Constitutional No fatigue 05/19/2015 Constitutional No fever 05/19/2015 Constitutional No insomnia 05/19/2015 Constitutional No malaise 05/19/2015 Constitutional No weight loss 05/19/2015 Constitutional No weight gain 05/19/2015 Eyes No eye discharge Eyes No eye erythema 08/2015 Ears/Nose/Throat/Neck No dizziness 05/19/2015 Dermatologic No rash 08/2015 Musculoskeletal No joint complaint 05/19/2015 Genitourinary/Nephrology No dysuria 05/19/2015 Gastrointestinal No abdominal pain 05/19/2015 Neurologic No alteration of consciousness 05/19/2015 Psychiatric anxiety 0 08/2015 Psychiatric depression 0 05/19/2015 Constitutional No recent illness 04/28/2015 Constitutional No anorexia 04/28/2015 Constitutional No night sweats 04/28/2015 Constitutional No chills 04/28/2015 Constitutional No diaphoresis 04/28/2015 Constitutional No fatigue 04/28/2015 Constitutional No fever 04/28/2015 Constitutional No insomnia 04/28/2015 Constitutional No malaise 04/28/2015 Constitutional No weight loss 04/28/2015 Constitutional No weight gain 04/28/2015 Eyes No eye discharge Eyes No eye erythema Ears/Nose/Throat/Neck No nasal discharge 04/28/2015 Ears/Nose/Throat/Neck No nasal allergies 04/28/2015 Cardiovascular No chest pain/pressure 04/28/2015 Cardiovascular No dyspnea 04/28/2015 Respiratory No productive sputum 04/28/2015 Respiratory No cough Gastrointestinal No diarrhea 04/28/2015 Gastrointestinal No nausea 04/28/2015 Gastrointestinal No vomiting 04/28/2015 Genitourinary/Nephrology No dysuria 04/28/2015 Musculoskeletal No joint complaint 04/28/2015 Dermatologic rash 2014 Neurologic No alteration of consciousness 04/28/2015 Constitutional No recent illness 03/18/2015 Constitutional No night sweats 03/18/2015 Constitutional No chills 03/18/2015 Constitutional No fever 03/18/2015 Eyes No eye discharge Eyes No eye erythema 07/2014 Ears/Nose/Throat/Neck No headache 03/18/2015 Ears/Nose/Throat/Neck No nasal discharge 03/18/2015 Cardiovascular No chest pain/pressure 03/18/2015 Cardiovascular No dyspnea 03/18/2015 Respiratory No chest congestion 03/18/2015 Respiratory No cough 07/2014 Gastrointestinal No abdominal pain 03/18/2015 Gastrointestinal No constipation 03/18/2015 Gastrointestinal No diarrhea 03/18/2015 Genitourinary/Nephrology No hematuria 03/18/2015 Musculoskeletal No back pain 03/18/2015 Musculoskeletal No bone pain 03/18/2015 Dermatologic No rash 07/2014 Dermatologic No sores Neurologic No alteration of consciousness 03/18/2015 Psychiatric anxiety 110 07/2014 Psychiatric depression 1 05/18/2014 Endocrine No dry or coarse skin 03/18/2015 Constitutional No recent illness 02/27/2015 Constitutional No anorexia 02/27/2015 Constitutional No night sweats 02/27/2015 Constitutional No chills 02/27/2015 Constitutional No diaphoresis 02/27/2015 Constitutional No fatigue 02/27/2015 Constitutional No insomnia 02/27/2015 Constitutional No fever 02/27/2015 Constitutional No malaise 02/27/2015 Constitutional No weight loss 02/27/2015 Constitutional No weight gain 02/27/2015 Constitutional No recent illness 02/13/2015 Constitutional No night sweats 02/13/2015 Constitutional No chills 02/13/2015 Constitutional No fever 02/13/2015 Ears/Nose/Throat/Neck No headache 02/13/2015 Ears/Nose/Throat/Neck No nasal discharge 02/13/2015 Cardiovascular No chest pain/pressure 02/13/2015 Cardiovascular No dyspnea 02/13/2015 Respiratory No chest congestion 02/13/2015 Respiratory No cough 05/2014 Gastrointestinal No abdominal pain 02/13/2015 Gastrointestinal No constipation 02/13/2015 Gastrointestinal No diarrhea 02/13/2015 Genitourinary/Nephrology dysuria 02/13/2015 Genitourinary/Nephrology No hematuria 02/13/2015 Musculoskeletal No bone pain 02/13/2015 Dermatologic No rash 05/2014 Dermatologic No sores Eyes No eye erythema 05/2014 Eyes No eye discharge Musculoskeletal No back pain 02/13/2015 Neurologic No alteration of consciousness 02/13/2015 Psychiatric anxiety 05/2014 Psychiatric depression 1 Endocrine No dry or coarse skin 02/13/2015 Constitutional No recent illness 11/18/2014 Cardiovascular No chest pain/pressure 11/18/2014 Cardiovascular No dyspnea 11/18/2014 Respiratory No cough 10/2014 Respiratory No chest congestion 11/18/2014 Gastrointestinal No abdominal pain 11/18/2014 Gastrointestinal No diarrhea 11/18/2014 Gastrointestinal No constipation 11/18/2014 Genitourinary/Nephrology dysuria 11/18/2014 Genitourinary/Nephrology No hematuria 11/18/2014 Dermatologic No rash 10/2014 Dermatologic No sores Constitutional No fever 11/18/2014 Constitutional No chills 11/18/2014 Constitutional No night sweats 11/18/2014 Ears/Nose/Throat/Neck No headache 11/18/2014 Ears/Nose/Throat/Neck No nasal discharge 11/18/2014 Musculoskeletal back pain 11/18/2014 Musculoskeletal No bone pain 11/18/2014 Musculoskeletal myalgias 11/18/2014 Musculoskeletal neck pain 11/18/2014 Constitutional No fever 10/23/2014 Dermatologic No rash 02/2015 Ears/Nose/Throat/Neck No headache 10/23/2014 Cardiovascular No dyspnea 10/23/2014 Genitourinary/Nephrology dysuria 10/23/2014 Genitourinary/Nephrology No hematuria 10/23/2014 Constitutional No recent illness 10/02/2014 Constitutional No chills 10/02/2014 Constitutional No night sweats 10/02/2014 Eyes No eye tearing 09/14 Eyes No eyelid pain 09/14 Ears/Nose/Throat/Neck No headache 10/02/2014 Ears/Nose/Throat/Neck No nasal discharge 10/02/2014 Ears/Nose/Throat/Neck No otalgia 10/02/2014 Cardiovascular No chest pain/pressure 10/02/2014 Cardiovascular dyspnea 0 10/02/2014 Respiratory No chest congestion 10/02/2014 Respiratory No chest tightness 10/02/2014 Respiratory No cough Gastrointestinal No diarrhea 10/02/2014 Gastrointestinal No constipation 10/02/2014 Genitourinary/Nephrology No dysuria 10/02/2014 Genitourinary/Nephrology No hematuria 10/02/2014 Musculoskeletal No back pain 10/02/2014 Dermatologic No rash Dermatologic No sores Neurologic No speech difficulties 10/02/2014 Neurologic No memory loss 10/02/2014 Neurologic No gait abnormality 10/02/2014 Psychiatric depression 0 10/02/2014 Constitutional No recent illness 09/23/2014 Constitutional No anorexia 09/23/2014 Constitutional No night sweats 09/23/2014 Constitutional No chills 09/23/2014 Constitutional No diaphoresis 09/23/2014 Constitutional No fatigue 09/23/2014 Constitutional No fever 09/23/2014 Constitutional No insomnia 09/23/2014 Constitutional No malaise 09/23/2014 Ears/Nose/Throat/Neck dizziness 09/23/2014 Ears/Nose/Throat/Neck headache 09/23/2014 Eyes No eye discharge Eyes No eye erythema 03/2015 Eyes No vision change Ears/Nose/Throat/Neck No otalgia 09/23/2014 Ears/Nose/Throat/Neck No sinus congestion 09/23/2014 Ears/Nose/Throat/Neck nasal allergies 09/23/2014 Ears/Nose/Throat/Neck nasal discharge 09/23/2014 Cardiovascular No chest pain/pressure 09/23/2014 Cardiovascular No dyspnea 09/23/2014 Cardiovascular No edema 09/23/2014 Respiratory No productive sputum 09/23/2014 Respiratory No chest congestion 09/23/2014 Respiratory No cough 03/2015 Respiratory dyspnea on exertion 09/23/2014 Gastrointestinal No abdominal pain 09/23/2014 Gastrointestinal constipation 09/23/2014 Gastrointestinal No diarrhea 09/23/2014 Gastrointestinal No vomiting 09/23/2014 Gastrointestinal No nausea 09/23/2014 Genitourinary/Nephrology dysuria 09/23/2014 Musculoskeletal No joint complaint 09/23/2014 Dermatologic No rash 03/2015 Dermatologic No sores Neurologic No alteration of consciousness 09/23/2014 Psychiatric anxiety 09/13 Psychiatric depression 0 09/23/2014 Constitutional recent illness 07/08/2014 Eyes No eye erythema Eyes No eye discharge Ears/Nose/Throat/Neck nasal allergies 07/08/2014 Ears/Nose/Throat/Neck nasal discharge 07/08/2014 Ears/Nose/Throat/Neck No otalgia 07/08/2014 Ears/Nose/Throat/Neck sinus congestion 07/08/2014 Ears/Nose/Throat/Neck sore throat 07/08/2014 Cardiovascular No chest pain/pressure 07/08/2014 Constitutional No anorexia 07/08/2014 Constitutional No night sweats 07/08/2014 Constitutional No chills 07/08/2014 Constitutional No diaphoresis 07/08/2014 Constitutional No fatigue 07/08/2014 Constitutional No fever 07/08/2014 Constitutional No insomnia 07/08/2014 Constitutional No malaise 07/08/2014 Constitutional No weight loss 07/08/2014 Constitutional No weight gain 07/08/2014 Cardiovascular edema Respiratory productive sputum 07/08/2014 Respiratory chest congestion 07/08/2014 Respiratory cough 2014 Respiratory dyspnea on exertion 07/08/2014 Gastrointestinal constipation 07/08/2014 Gastrointestinal No diarrhea 07/08/2014 Gastrointestinal No vomiting 07/08/2014 Gastrointestinal No nausea 07/08/2014 Genitourinary/Nephrology No dysuria 07/08/2014 Musculoskeletal No joint complaint 07/08/2014 Dermatologic No rash Dermatologic No sores Neurologic No alteration of consciousness 07/08/2014 Constitutional No recent illness 05/31/2014 Constitutional No anorexia 05/31/2014 Constitutional No night sweats 05/31/2014 Constitutional No chills 05/31/2014 Constitutional No diaphoresis 05/31/2014 Constitutional fatigue 0 05/31/2014 Constitutional No fever 05/31/2014 Constitutional No insomnia 05/31/2014 Constitutional No weight loss 05/31/2014 Constitutional weight gain 05/31/2014 Eyes No eye discharge Eyes No eye erythema Ears/Nose/Throat/Neck No dizziness 05/31/2014 Ears/Nose/Throat/Neck No dysphagia 05/31/2014 Ears/Nose/Throat/Neck No headache 05/31/2014 Ears/Nose/Throat/Neck No hearing loss 05/31/2014 Ears/Nose/Throat/Neck No nasal allergies 05/31/2014 Ears/Nose/Throat/Neck No sore throat 05/31/2014 Ears/Nose/Throat/Neck No postnasal drip 05/31/2014 Ears/Nose/Throat/Neck No sinus congestion 05/31/2014 Cardiovascular No chest pain/pressure 05/31/2014 Cardiovascular No dyspnea 05/31/2014 Cardiovascular edema Cardiovascular No exercise intolerance 05/31/2014 Cardiovascular No fatigue 05/31/2014 Cardiovascular No near-syncope/dizziness 05/31/2014 Respiratory No chest congestion 05/31/2014 Respiratory No chest tightness 05/31/2014 Respiratory No cough Respiratory No dyspnea 0 05/31/2014 Respiratory No snoring 0 05/31/2014 Respiratory No wheezing 05/31/2014 Gastrointestinal No abdominal pain 05/31/2014 Gastrointestinal No constipation 05/31/2014 Gastrointestinal No diarrhea 05/31/2014 Gastrointestinal No nausea 05/31/2014 Gastrointestinal No vomiting 05/31/2014 Genitourinary/Nephrology No dysuria 05/31/2014 Genitourinary/Nephrology No urinary urgenc y 05/31/2014 Genitourinary/Nephrology No urinary frequency 05/31/2014 Genitourinary/Nephrology No urinary incontinence 05/31/2014 Musculoskeletal No stiffness 05/31/2014 Musculoskeletal No swelling 05/31/2014 Musculoskeletal back pain 05/31/2014 Musculoskeletal No muscle weakness 05/31/2014 Musculoskeletal No myalgias 05/31/2014 Dermatologic No rash Dermatologic No sores Dermatologic No scar Neurologic No alteration of consciousness 05/31/2014 Psychiatric anxiety 05/16 Psychiatric depression 0 05/31/2014 Endocrine weight gain Hematologic/Lymphatic No abnormal bl eeding and bruising 05/31/2014 Psychiatric disturbances of emotion 05/31/2014 Constitutional No recent illness 04/18/2014 Constitutional No anorexia 04/18/2014 Constitutional No night sweats 04/18/2014 Constitutional No chills 04/18/2014 Constitutional No diaphoresis 04/18/2014 Constitutional No fatigue 04/18/2014 Constitutional No fever 04/18/2014 Constitutional No insomnia 04/18/2014 Constitutional No malaise 04/18/2014 Constitutional No weight loss 04/18/2014 Constitutional No weight gain 04/18/2014 Eyes No eye discharge Eyes No eye erythema 08/2013 Ears/Nose/Throat/Neck No dizziness 04/18/2014 Ears/Nose/Throat/Neck No headache 04/18/2014 Ears/Nose/Throat/Neck nasal allergies 04/18/2014 Ears/Nose/Throat/Neck No nasal discharge 04/18/2014 Cardiovascular No chest pain/pressure 04/18/2014 Cardiovascular No dyspnea 04/18/2014 Cardiovascular No edema 04/18/2014 Respiratory No cough 08/2013 Gastrointestinal No abdominal pain 04/18/2014 Gastrointestinal No constipation 04/18/2014 Gastrointestinal No diarrhea 04/18/2014 Gastrointestinal No vomiting 04/18/2014 Genitourinary/Nephrology No dysuria 04/18/2014 Musculoskeletal back pain 04/18/2014 Dermatologic sores 04/18 Neurologic No alteration of consciousness 04/18/2014 Psychiatric anxiety 08/2013 Psychiatric depression 1 06/19/2013 Constitutional No recent illness 03/05/2014 Constitutional No anorexia 03/05/2014 Constitutional No night sweats 03/05/2014 Constitutional No chills 03/05/2014 Constitutional No diaphoresis 03/05/2014 Constitutional No fatigue 03/05/2014 Constitutional No fever 03/05/2014 Constitutional No insomnia 03/05/2014 Constitutional No malaise 03/05/2014 Constitutional No weight loss 03/05/2014 Constitutional No weight gain 03/05/2014 Eyes No eye discharge Eyes No eye erythema Ears/Nose/Throat/Neck No dizziness 03/05/2014 Ears/Nose/Throat/Neck No headache 03/05/2014 Ears/Nose/Throat/Neck nasal allergies 03/05/2014 Ears/Nose/Throat/Neck No nasal discharge 03/05/2014 Cardiovascular No chest pain/pressure 03/05/2014 Cardiovascular No dyspnea 03/05/2014 Cardiovascular No edema 03/05/2014 Respiratory No cough Musculoskeletal back pain 03/05/2014 Gastrointestinal No abdominal pain 03/05/2014 Gastrointestinal No constipation 03/05/2014 Gastrointestinal No diarrhea 03/05/2014 Gastrointestinal No nausea 03/05/2014 Gastrointestinal No vomiting 03/05/2014 Genitourinary/Nephrology No dysuria 03/05/2014 Neurologic No alteration of consciousness 03/05/2014 Dermatologic sores 03/05 Psychiatric depression 1 Psychiatric anxiety 02/14 Constitutional No recent illness 01/29/2014 Constitutional No anorexia 01/29/2014 Constitutional No night sweats 01/29/2014 Constitutional No chills 01/29/2014 Constitutional No diaphoresis 01/29/2014 Constitutional fatigue 0 01/29/2014 Constitutional No fever 01/29/2014 Constitutional No insomnia 01/29/2014 Ears/Nose/Throat/Neck No dizziness 01/29/2014 Ears/Nose/Throat/Neck No dysphagia 01/29/2014 Ears/Nose/Throat/Neck No headache 01/29/2014 Ears/Nose/Throat/Neck No hearing loss 01/29/2014 Ears/Nose/Throat/Neck No nasal allergies 01/29/2014 Ears/Nose/Throat/Neck No sore throat 01/29/2014 Ears/Nose/Throat/Neck No postnasal drip 01/29/2014 Ears/Nose/Throat/Neck No sinus congestion 01/29/2014 Cardiovascular No chest pain/pressure 01/29/2014 Cardiovascular No dyspnea 01/29/2014 Cardiovascular edema Cardiovascular No exercise intolerance 01/29/2014 Cardiovascular No fatigue 01/29/2014 Cardiovascular No near-syncope/dizziness 01/29/2014 Respiratory No chest congestion 01/29/2014 Respiratory No chest tightness 01/29/2014 Respiratory No cough Respiratory No dyspnea 0 01/29/2014 Respiratory No snoring 0 01/29/2014 Respiratory No wheezing 01/29/2014 Gastrointestinal No abdominal pain 01/29/2014 Gastrointestinal No constipation 01/29/2014 Gastrointestinal No diarrhea 01/29/2014 Gastrointestinal No nausea 01/29/2014 Gastrointestinal No vomiting 01/29/2014 Genitourinary/Nephrology No urinary urgenc y 01/29/2014 Genitourinary/Nephrology No urinary frequency 01/29/2014 Genitourinary/Nephrology No urinary incontinence 01/29/2014 Musculoskeletal No stiffness 01/29/2014 Musculoskeletal No swelling 01/29/2014 Musculoskeletal No muscle weakness 01/29/2014 Musculoskeletal No myalgias 01/29/2014 Dermatologic No rash Dermatologic No scar Psychiatric anxiety 01/14 Psychiatric depression 0 01/29/2014 Constitutional No weight loss 01/29/2014 Constitutional weight gain 01/29/2014 Eyes No eye discharge Eyes No eye erythema Genitourinary/Nephrology No dysuria 01/29/2014 Dermatologic No sores Neurologic No alteration of consciousness 01/29/2014 Musculoskeletal back pain 01/29/2014 Hematologic/Lymphatic No abnormal bl eeding and bruising 01/29/2014 Endocrine weight gain Constitutional No recent illness 10/23/2013 Constitutional No anorexia 10/23/2013 Constitutional No night sweats 10/23/2013 Constitutional No chills 10/23/2013 Constitutional No diaphoresis 10/23/2013 Constitutional No fatigue 10/23/2013 Constitutional No fever 10/23/2013 Constitutional No insomnia 10/23/2013 Constitutional malaise 0 10/23/2013 Cardiovascular No chest pain/pressure 10/23/2013 Cardiovascular No dyspnea 10/23/2013 Cardiovascular edema 02/2014 Cardiovascular No exercise intolerance 10/23/2013 Cardiovascular No fatigue 10/23/2013 Cardiovascular No near-syncope/dizziness 10/23/2013 Respiratory No chest tightness 10/23/2013 Respiratory No cigarette smoking 10/23/2013 Respiratory No cough 02/2014 Respiratory No dyspnea 0 10/23/2013 Respiratory No pedal edema 10/23/2013 Respiratory No snoring 0 10/23/2013 Respiratory No wheezing 10/23/2013 Psychiatric anxiety 10/14 Psychiatric No depression 10/23/2013 Gastrointestinal No abdominal pain 10/23/2013 Gastrointestinal No constipation 10/23/2013 Gastrointestinal No diarrhea 10/23/2013 Gastrointestinal No gastroesophageal reflu x 10/23/2013 Gastrointestinal No nausea 10/23/2013 Musculoskeletal No stiffness 10/23/2013 Musculoskeletal No swelling 10/23/2013 Musculoskeletal No muscle weakness 10/23/2013 Musculoskeletal No myalgias 10/23/2013 Dermatologic No rash 02/2014 Dermatologic No scar 02/2014 Eyes No blindness 2013 Eyes No vision change Ears/Nose/Throat/Neck No dental pain 10/23/2013 Ears/Nose/Throat/Neck No dizziness 10/23/2013 Ears/Nose/Throat/Neck No dysphagia 10/23/2013 Ears/Nose/Throat/Neck No headache 10/23/2013 Ears/Nose/Throat/Neck No hearing loss 10/23/2013 Ears/Nose/Throat/Neck No nasal allergies 10/23/2013 Ears/Nose/Throat/Neck No sore throat 10/23/2013 Ears/Nose/Throat/Neck No postnasal drip 10/23/2013 Ears/Nose/Throat/Neck No sinus congestion 10/23/2013 Respiratory No chest congestion 10/23/2013 Gastrointestinal No vomiting 10/23/2013 Genitourinary/Nephrology No urinary urgenc y 10/23/2013 Genitourinary/Nephrology No urinary frequency 10/23/2013 Genitourinary/Nephrology No urinary incontinence 10/23/2013 Constitutional No recent illness 10/11/2013 Constitutional No anorexia 10/11/2013 Constitutional No night sweats 10/11/2013 Constitutional No chills 10/11/2013 Constitutional No diaphoresis 10/11/2013 Constitutional No fatigue 10/11/2013 Constitutional No fever 10/11/2013 Constitutional No insomnia 10/11/2013 Constitutional No malaise 10/11/2013 Musculoskeletal No joint complaint 10/11/2013 Constitutional No recent illness 09/17/2013 Constitutional No anorexia 09/17/2013 Constitutional No night sweats 09/17/2013 Constitutional No chills 09/17/2013 Constitutional No diaphoresis 09/17/2013 Constitutional No fatigue 09/17/2013 Constitutional No fever 09/17/2013 Constitutional No insomnia 09/17/2013 Constitutional malaise 0 09/17/2013 Cardiovascular No chest pain/pressure 09/17/2013 Cardiovascular No dyspnea 09/17/2013 Cardiovascular edema 09/2013 Cardiovascular No exercise intolerance 09/17/2013 Cardiovascular No fatigue 09/17/2013 Cardiovascular No near-syncope/dizziness 09/17/2013 Cardiovascular hypertension 09/17/2013 Psychiatric No anxiety 0 09/17/2013 Psychiatric No depression 09/17/2013 Respiratory No chest tightness 09/17/2013 Respiratory No cigarette smoking 09/17/2013 Respiratory No cough 09/2013 Respiratory No dyspnea 0 09/17/2013 Respiratory No pedal edema 09/17/2013 Respiratory No snoring 0 09/17/2013 Respiratory No wheezing 09/17/2013 Constitutional No recent illness 08/27/2013 Constitutional No anorexia 08/27/2013 Constitutional No night sweats 08/27/2013 Constitutional No chills 08/27/2013 Constitutional No diaphoresis 08/27/2013 Constitutional No fatigue 08/27/2013 Constitutional No fever 08/27/2013 Constitutional No insomnia 08/27/2013 Constitutional No malaise 08/27/2013 Constitutional No night sweats 08/20/2013 Constitutional No chills 08/20/2013 Constitutional No fatigue 08/20/2013 Constitutional No fever 08/20/2013 Ears/Nose/Throat/Neck No dental pain 08/20/2013 Ears/Nose/Throat/Neck No dizziness 08/20/2013 Ears/Nose/Throat/Neck No dysphagia 08/20/2013 Ears/Nose/Throat/Neck No headache 08/20/2013 Ears/Nose/Throat/Neck No hearing loss 08/20/2013 Ears/Nose/Throat/Neck No nasal allergies 08/20/2013 Ears/Nose/Throat/Neck No sore throat 08/20/2013 Ears/Nose/Throat/Neck No postnasal drip 08/20/2013 Ears/Nose/Throat/Neck No sinus congestion 08/20/2013 Respiratory No chest congestion 08/20/2013 Respiratory No chest tightness 08/20/2013 Respiratory No cough 11/2013 Respiratory No dyspnea 0 08/20/2013 Gastrointestinal No anorexia 08/20/2013 Gastrointestinal No constipation 08/20/2013 Gastrointestinal No diarrhea 08/20/2013 Gastrointestinal No nausea 08/20/2013 Gastrointestinal No vomiting 08/20/2013 Genitourinary/Nephrology No urinary urgenc y 08/20/2013 Genitourinary/Nephrology No urinary frequency 08/20/2013 Genitourinary/Nephrology No urinary incontinence 08/20/2013 Dermatologic No rash 11/2013 Psychiatric anxiety 04/0 11/2013 Psychiatric depression 0 08/20/2013 Psychiatric disturbances of emotion 08/20/2013 Constitutional No night sweats 07/10/2013 Constitutional No chills 07/10/2013 Constitutional No fatigue 07/10/2013 Constitutional No fever 07/10/2013 Ears/Nose/Throat/Neck No dental pain 07/10/2013 Ears/Nose/Throat/Neck No dizziness 07/10/2013 Ears/Nose/Throat/Neck No dysphagia 07/10/2013 Ears/Nose/Throat/Neck No headache 07/10/2013 Ears/Nose/Throat/Neck No hearing loss 07/10/2013 Ears/Nose/Throat/Neck No nasal allergies 07/10/2013 Ears/Nose/Throat/Neck No sore throat 07/10/2013 Ears/Nose/Throat/Neck No postnasal drip 07/10/2013 Ears/Nose/Throat/Neck No sinus congestion 07/10/2013 Respiratory No chest congestion 07/10/2013 Respiratory No chest tightness 07/10/2013 Respiratory No cough Respiratory No dyspnea 0 07/10/2013 Gastrointestinal No anorexia 07/10/2013 Gastrointestinal No constipation 07/10/2013 Gastrointestinal No diarrhea 07/10/2013 Gastrointestinal No nausea 07/10/2013 Gastrointestinal No vomiting 07/10/2013 Genitourinary/Nephrology No urinary urgenc y 07/10/2013 Genitourinary/Nephrology No urinary frequency 07/10/2013 Genitourinary/Nephrology No urinary incontinence 07/10/2013 Dermatologic No rash Psychiatric anxiety 06/17 Psychiatric depression 0 07/10/2013 Psychiatric disturbances of emotion 07/10/2013 Constitutional No chills 03/20/2013 Constitutional No fever 03/20/2013 Eyes No eye erythema 09/2012 Eyes No eye discharge Cardiovascular No chest pain/pressure 03/20/2013 Gastrointestinal No nausea 03/20/2013 Gastrointestinal No vomiting 03/20/2013 Gastrointestinal No abdominal pain 03/20/2013 Gastrointestinal No constipation 03/20/2013 Gastrointestinal No diarrhea 03/20/2013 Genitourinary/Nephrology No dysuria 03/20/2013 Dermatologic No rash 09/2012 Dermatologic No sores Genitourinary/Nephrology urinary frequency 03/20/2013 Genitourinary/Nephrology urinary urgency 03/20/2013 Ears/Nose/Throat/Neck postnasal drip 03/20/2013 Ears/Nose/Throat/Neck nasal allergies 03/20/2013 Ears/Nose/Throat/Neck nasal discharge 03/20/2013 Constitutional No night sweats 03/07/2013 Constitutional No chills 03/07/2013 Constitutional No fatigue 03/07/2013 Constitutional No fever 03/07/2013 Ears/Nose/Throat/Neck No dental pain 03/07/2013 Ears/Nose/Throat/Neck No dizziness 03/07/2013 Ears/Nose/Throat/Neck No dysphagia 03/07/2013 Ears/Nose/Throat/Neck No headache 03/07/2013 Ears/Nose/Throat/Neck No hearing loss 03/07/2013 Ears/Nose/Throat/Neck No nasal allergies 03/07/2013 Ears/Nose/Throat/Neck No sore throat 03/07/2013 Ears/Nose/Throat/Neck No postnasal drip 03/07/2013 Ears/Nose/Throat/Neck No sinus congestion 03/07/2013 Respiratory No chest congestion 03/07/2013 Respiratory No chest tightness 03/07/2013 Respiratory No cough Respiratory No dyspnea 1 Gastrointestinal No anorexia 03/07/2013 Gastrointestinal No constipation 03/07/2013 Gastrointestinal No diarrhea 03/07/2013 Gastrointestinal No nausea 03/07/2013 Gastrointestinal No vomiting 03/07/2013 Genitourinary/Nephrology No urinary urgenc y 03/07/2013 Genitourinary/Nephrology No urinary frequency 03/07/2013 Genitourinary/Nephrology No urinary incontinence 03/07/2013 Dermatologic No rash Psychiatric anxiety 02/14 Psychiatric depression 1 Constitutional No night sweats 01/22/2013 Constitutional No chills 01/22/2013 Constitutional No fatigue 01/22/2013 Constitutional No fever 01/22/2013 Ears/Nose/Throat/Neck No dental pain 01/22/2013 Ears/Nose/Throat/Neck No dizziness 01/22/2013 Ears/Nose/Throat/Neck No dysphagia 01/22/2013 Ears/Nose/Throat/Neck No headache 01/22/2013 Ears/Nose/Throat/Neck No hearing loss 01/22/2013 Ears/Nose/Throat/Neck No nasal allergies 01/22/2013 Ears/Nose/Throat/Neck No sore throat 01/22/2013 Ears/Nose/Throat/Neck No postnasal drip 01/22/2013 Ears/Nose/Throat/Neck No sinus congestion 01/22/2013 Respiratory No chest congestion 01/22/2013 Respiratory No chest tightness 01/22/2013 Respiratory No cough 01/2013 Respiratory No dyspnea 0 01/22/2013 Gastrointestinal No anorexia 01/22/2013 Gastrointestinal No constipation 01/22/2013 Gastrointestinal No diarrhea 01/22/2013 Gastrointestinal No nausea 01/22/2013 Gastrointestinal No vomiting 01/22/2013 Genitourinary/Nephrology No urinary urgenc y 01/22/2013 Genitourinary/Nephrology No urinary frequency 01/22/2013 Genitourinary/Nephrology No urinary incontinence 01/22/2013 Dermatologic No rash 01/2013 Psychiatric anxiety 01/2013 Psychiatric depression 0 01/22/2013 Constitutional recent illness 08/22/2012 Constitutional No anorexia 08/22/2012 Constitutional No night sweats 08/22/2012 Constitutional No chills 08/22/2012 Constitutional No diaphoresis 08/22/2012 Constitutional No fatigue 08/22/2012 Constitutional No fever 08/22/2012 Constitutional No insomnia 08/22/2012 Eyes No eye discharge Eyes No eye erythema 01/2013 Ears/Nose/Throat/Neck No dizziness 08/22/2012 Ears/Nose/Throat/Neck headache 08/22/2012 Ears/Nose/Throat/Neck nasal allergies 08/22/2012 Ears/Nose/Throat/Neck nasal discharge 08/22/2012 Ears/Nose/Throat/Neck No otalgia 08/22/2012 Ears/Nose/Throat/Neck sinus congestion 08/22/2012 Ears/Nose/Throat/Neck sore throat 08/22/2012 Cardiovascular No chest pain/pressure 08/22/2012 Gastrointestinal No abdominal pain 08/22/2012 Gastrointestinal No diarrhea 08/22/2012 Gastrointestinal No constipation 08/22/2012 Gastrointestinal No nausea 08/22/2012 Gastrointestinal No vomiting 08/22/2012 Genitourinary/Nephrology No dysuria 08/22/2012 Musculoskeletal No joint complaint 08/22/2012 Dermatologic No rash 01/2013 Dermatologic No sores Constitutional No night sweats 08/14/2012 Constitutional No chills 08/14/2012 Constitutional No fatigue 08/14/2012 Ears/Nose/Throat/Neck No sinus congestion 08/14/2012 Constitutional No fever 08/14/2012 Respiratory No chest congestion 08/14/2012 Respiratory No chest tightness 08/14/2012 Respiratory No cough 05/2012 Respiratory No dyspnea 0 08/14/2012 Gastrointestinal No anorexia 08/14/2012 Gastrointestinal No constipation 08/14/2012 Gastrointestinal No diarrhea 08/14/2012 Gastrointestinal No nausea 08/14/2012 Gastrointestinal No vomiting 08/14/2012 Genitourinary/Nephrology No urinary urgenc y 08/14/2012 Genitourinary/Nephrology No urinary frequency 08/14/2012 Genitourinary/Nephrology No urinary incontinence 08/14/2012 Dermatologic No rash 05/2012 Psychiatric anxiety 04/05/2012 Psychiatric depression 0 08/14/2012 Ears/Nose/Throat/Neck No dental pain 08/14/2012 Ears/Nose/Throat/Neck No dizziness 08/14/2012 Ears/Nose/Throat/Neck No dysphagia 08/14/2012 Ears/Nose/Throat/Neck No headache 08/14/2012 Ears/Nose/Throat/Neck No hearing loss 08/14/2012 Ears/Nose/Throat/Neck No nasal allergies 08/14/2012 Ears/Nose/Throat/Neck No sore throat 08/14/2012 Ears/Nose/Throat/Neck No postnasal drip 08/14/2012 Constitutional recent illness 05/22/2012 Constitutional No anorexia 05/22/2012 Constitutional No night sweats 05/22/2012 Constitutional No chills 05/22/2012 Constitutional No diaphoresis 05/22/2012 Constitutional fatigue 0 05/22/2012 Constitutional No fever 05/22/2012 Eyes No eye discharge Eyes No eye erythema 11/2012 Cardiovascular No chest pain/pressure 05/22/2012 Gastrointestinal No nausea 05/22/2012 Gastrointestinal No abdominal pain 05/22/2012 Gastrointestinal No constipation 05/22/2012 Gastrointestinal No diarrhea 05/22/2012 Gastrointestinal No vomiting 05/22/2012 Genitourinary/Nephrology No dysuria 05/22/2012 Dermatologic No sores Dermatologic No rash 11/2012 Musculoskeletal No joint complaint 05/22/2012 Constitutional No night sweats 04/17/2012 Constitutional No chills 04/17/2012 Constitutional No fatigue 04/17/2012 Constitutional No fever 04/17/2012 Respiratory No chest congestion 04/17/2012 Respiratory No chest tightness 04/17/2012 Respiratory No cough 07/2011 Respiratory No dyspnea 1 06/18/2011 Gastrointestinal No anorexia 04/17/2012 Gastrointestinal No constipation 04/17/2012 Gastrointestinal No diarrhea 04/17/2012 Gastrointestinal No nausea 04/17/2012 Gastrointestinal No vomiting 04/17/2012 Genitourinary/Nephrology No urinary urgenc y 04/17/2012 Genitourinary/Nephrology No urinary frequency 04/17/2012 Genitourinary/Nephrology No urinary incontinence 04/17/2012 Dermatologic No rash 07/2011 Dermatologic No sores Psychiatric anxiety 07/2011 Psychiatric depression 1 06/18/2011 Eyes cataract 04/17/2012 Ears/Nose/Throat/Neck dizziness 04/17/2012 Ears/Nose/Throat/Neck headache 04/17/2012 Constitutional No night sweats 12/01/2011 Constitutional No chills 12/01/2011 Constitutional No fatigue 12/01/2011 Constitutional No fever 12/01/2011 Respiratory No chest congestion 12/01/2011 Respiratory No chest tightness 12/01/2011 Respiratory No cough Respiratory No dyspnea 0 12/01/2011 Gastrointestinal No anorexia 12/01/2011 Gastrointestinal No constipation 12/01/2011 Gastrointestinal No diarrhea 12/01/2011 Gastrointestinal No nausea 12/01/2011 Gastrointestinal No vomiting 12/01/2011 Genitourinary/Nephrology No urinary urgenc y 12/01/2011 Genitourinary/Nephrology No urinary frequency 12/01/2011 Genitourinary/Nephrology No urinary incontinence 12/01/2011 Dermatologic No rash Psychiatric anxiety 11/13 Psychiatric depression 0 12/01/2011 Cardiovascular No chest pain/pressure 12/01/2011 Cardiovascular No edema 12/01/2011 Ears/Nose/Throat/Neck headache 08/11/2011 Ears/Nose/Throat/Neck dizziness 08/11/2011 Eyes cataract 08/11/2011 Respiratory No dyspnea 0 08/11/2011 Gastrointestinal No vomiting 08/11/2011 Gastrointestinal No nausea 08/11/2011 Constitutional No fatigue 08/11/2011 Constitutional No fever 08/11/2011 Gastrointestinal No diarrhea 08/11/2011 Gastrointestinal No constipation 08/11/2011 Constitutional No night sweats 08/11/2011 Constitutional No chills 08/11/2011 Respiratory No chest congestion 08/11/2011 Respiratory No chest tightness 08/11/2011 Respiratory No cough Gastrointestinal No anorexia 08/11/2011 Genitourinary/Nephrology No urinary urgenc y 08/11/2011 Genitourinary/Nephrology No urinary frequency 08/11/2011 Genitourinary/Nephrology No urinary incontinence 08/11/2011 Dermatologic No rash Dermatologic No sores Psychiatric anxiety 07/15 Psychiatric depression 0 08/11/2011 Constitutional No night sweats 06/01/2011 Constitutional No chills 06/01/2011 Constitutional No fatigue 06/01/2011 Constitutional No fever 06/01/2011 Eyes vision change 06/01 Cardiovascular No chest pain/pressure 06/01/2011 Cardiovascular No dyspnea 06/01/2011 Cardiovascular No edema 06/01/2011 Respiratory No chest congestion 06/01/2011 Respiratory No chest tightness 06/01/2011 Respiratory No cough Gastrointestinal No anorexia 06/01/2011 Gastrointestinal No constipation 06/01/2011 Gastrointestinal No diarrhea 06/01/2011 Genitourinary/Nephrology No urinary urgenc y 06/01/2011 Genitourinary/Nephrology No urinary frequency 06/01/2011 Genitourinary/Nephrology No urinary incontinence 06/01/2011 Dermatologic No rash Dermatologic No sores Psychiatric anxiety 05/16 Psychiatric depression 0 06/01/2011 Gastrointestinal gas and bloating 06/01/2011 Constitutional recent illness 06/01/2011 Constitutional No night sweats 05/18/2011 Constitutional No chills 05/18/2011 Constitutional No fatigue 05/18/2011 Constitutional No fever 05/18/2011 Eyes vision change 05/18 Cardiovascular No chest pain/pressure 05/18/2011 Cardiovascular No dyspnea 05/18/2011 Cardiovascular No edema 05/18/2011 Respiratory No cough 07/2011 Respiratory No chest tightness 05/18/2011 Respiratory No chest congestion 05/18/2011 Gastrointestinal No anorexia 05/18/2011 Gastrointestinal No constipation 05/18/2011 Gastrointestinal No diarrhea 05/18/2011 Genitourinary/Nephrology No urinary urgenc y 05/18/2011 Genitourinary/Nephrology No urinary frequency 05/18/2011 Genitourinary/Nephrology No urinary incontinence 05/18/2011 Dermatologic No rash 07/2011 Dermatologic No sores Psychiatric anxiety 07/2011 Psychiatric depression 0 05/18/2011 Physical Exam Exam Name System Name It em Name Status Result Effective Dates Notes Full Exam - General 1994 Constitutional general appearance Overall: well developed 12/22/2017 None Full Exam - General 1994 Constitutional general appearance Overall: in no acute distress 12/22/2017 None Full Exam - General 1994 Eyes conjunctiva/eyelids Overall: conjunctiva clear 12/22/2017 None Full Exam - General 1994 Eyes pupils and irises Overall: pupils equal, round, reactive to light and accomodation 12/22/2017 None Full Exam - General 1994 Eyes pupils and irises Pupil: round 12/22/2017 None Full Exam - General 1994 Eyes pupils and irises Pupil: reactive to light 12/22/2017 None Full Exam - General 1994 Ears/Nose/Throat otoscopic exam Overall: external auditory canals clear 12/22/2017 None Full Exam - General 1994 Ears/Nose/Throat otoscopic exam Overall: tympanic membranes clear 12/22/2017 None Full Exam - General 1994 Ears/Nose/Throat oral cavity/pharynx/larynx Overall: oral mucosa clear 12/22/2017 None Full Exam - General 1994 Ears/Nose/Throat oral cavity/pharynx/larynx Overall: oropharyngeal mucosa clear 12/22/2017 None Full Exam - General 1994 Ears/Nose/Throat oral cavity/pharynx/larynx Overall: no masses 12/22/2017 None Full Exam - General 1994 Respiratory auscultation Overall: breath sounds clear bilaterally 12/22/2017 None Full Exam - General 1994 Respiratory respiratory effort/rhythm Overall: no retractions 12/22/2017 None Full Exam - General 1994 Respiratory respiratory effort/rhythm Overall: normal rate 12/22/2017 None Full Exam - General 1994 Cardiovascular auscultation of heart Overall: regular rate 12/22/2017 None Full Exam - General 1994 Cardiovascular auscultation of heart Overall: normal heart sounds 12/22/2017 None Full Exam - General 1994 Cardiovascular auscultation of heart Overall: no murmurs 12/22/2017 None Full Exam - General 1994 Abdomen abdominal exam Overall: no tenderness 12/22/2017 None Full Exam - General 1994 Abdomen abdominal exam Overall: normal bowel sounds 12/22/2017 None Full Exam - General 1994 Musculoskeletal head and neck Overall: head atraumatic 12/22/2017 None Full Exam - General 1994 Musculoskeletal head and neck Overall: cervical spine benign 12/22/2017 None Full Exam - General 1994 Integument inspection of skin Overall: no rash, lesions 12/22/2017 None Full Exam - General 1994 Neurologic gait Overall: no ataxia, no unsteadiness 12/22/2017 None Full Exam - General 1994 Psychiatric orientation/consciousness Overall: oriented to person, place and time 12/22/2017 None Full Exam - General 1994 Psychiatric mood and affect Mood: happy 12/22/2017 None Full Exam - General 1994 Psychiatric mood and affect Affect: mood congruent 12/22/2017 None Full Exam - General 1994 Constitutional general appearance Nourishment: obese 12/22/2017 None Full Exam - General 1994 Constitutional general appearance Overall: well developed 10/06/2017 None Full Exam - General 1994 Constitutional general appearance Overall: in no acute distress 10/06/2017 None Full Exam - General 1994 Constitutional general appearance Overall: well nourished 10/06/2017 None Full Exam - General 1994 Eyes conjunctiva/eyelids Overall: conjunctiva clear 10/06/2017 None Full Exam - General 1994 Eyes pupils and irises Overall: pupils equal, round, reactive to light and accomodation 10/06/2017 None Full Exam - General 1994 Eyes pupils and irises Pupil: round 10/06/2017 None Full Exam - General 1994 Eyes pupils and irises Pupil: reactive to light 10/06/2017 None Full Exam - General 1994 Ears/Nose/Throat otoscopic exam Overall: external auditory canals clear 10/06/2017 None Full Exam - General 1994 Ears/Nose/Throat otoscopic exam Overall: tympanic membranes clear 10/06/2017 None Full Exam - General 1994 Ears/Nose/Throat oral cavity/pharynx/larynx Overall: oral mucosa clear 10/06/2017 None Full Exam - General 1994 Ears/Nose/Throat oral cavity/pharynx/larynx Overall: oropharyngeal mucosa clear 10/06/2017 None Full Exam - General 1994 Ears/Nose/Throat oral cavity/pharynx/larynx Overall: no masses 10/06/2017 None Full Exam - General 1994 Respiratory auscultation Overall: breath sounds clear bilaterally 10/06/2017 None Full Exam - General 1994 Respiratory respiratory effort/rhythm Overall: no retractions 10/06/2017 None Full Exam - General 1994 Respiratory respiratory effort/rhythm Overall: normal rate 10/06/2017 None Full Exam - General 1994 Cardiovascular auscultation of heart Overall: regular rate 10/06/2017 None Full Exam - General 1994 Cardiovascular auscultation of heart Overall: normal heart sounds 10/06/2017 None Full Exam - General 1994 Cardiovascular auscultation of heart Overall: no murmurs 10/06/2017 None Full Exam - General 1994 Abdomen abdominal exam Overall: no tenderness 10/06/2017 None Full Exam - General 1994 Abdomen abdominal exam Overall: normal bowel sounds 10/06/2017 None Full Exam - General 1994 Musculoskeletal head and neck Overall: head atraumatic 10/06/2017 None Full Exam - General 1994 Musculoskeletal head and neck Overall: cervical spine benign 10/06/2017 None Full Exam - General 1994 Integument inspection of skin Overall: no rash, lesions 10/06/2017 None Full Exam - General 1994 Neurologic gait Overall: no ataxia, no unsteadiness 10/06/2017 None Full Exam - General 1994 Psychiatric orientation/consciousness Overall: oriented to person, place and time 10/06/2017 None Full Exam - General 1994 Psychiatric mood and affect Mood: happy 10/06/2017 None Full Exam - General 1994 Psychiatric mood and affect Affect: mood congruent 10/06/2017 None Full Exam - General 1994 Cardiovascular extremities Edema present: pitting 10/06/2017 None Full Exam - General 1994 Cardiovascular extremities Edema present: severity 1+ - 4+: 1+ 10/06/2017 None Full Exam - ENT Constitutional general appearance Overall: well nourished 08/25/2017 None Full Exam - ENT Constitutional general appearance Overall: well developed 08/25/2017 None Full Exam - ENT Constitutional general appearance Overall: in no acute distress 08/25/2017 None Full Exam - ENT Ears/Nose/Throat otoscopic exam Overall: external auditory canals normal 08/25/2017 None Full Exam - ENT Ears/Nose/Throat otoscopic exam Overall: tympanic membranes normal 08/25/2017 None Full Exam - ENT Ears/Nose/Throat oropharynx Overall: oral mucosa clear 08/25/2017 None Full Exam - ENT Face and Head palpation Overall: no sinus tenderness 08/25/2017 None Full Exam - ENT Respiratory inspection Overall: no retractions 08/25/2017 None Full Exam - ENT Respiratory inspection Overall: normal rate 04/2018 None Full Exam - ENT Respiratory auscultation Overall: breath sounds clear bilater ally 08/25/2017 None Full Exam - ENT Cardiovascular auscultation of heart Overall: regular rate 08/25/2017 None Full Exam - ENT Cardiovascular auscultation of heart Overall: normal heart sounds 08/25/2017 None Full Exam - ENT Lymphatic palpation of lymph nodes Overall: anterior cervical chain benign 08/25/2017 None Full Exam - ENT Lymphatic palpation of lymph nodes Overall: posterior cervical chain benign 08/25/2017 None Full Exam - ENT Musculoskeletal left lower extremity Inspection - left foot: swelling 08/25/2017 None Full Exam - ENT Integument inspection of skin Overall: no rash, lesions 08/25/2017 None Full Exam - ENT Neurologic orientation Overall: oriented to person, place a nd time 08/25/2017 None Full Exam - General 1994 Constitutional general appearance Overall: well developed 05/23/2017 None Full Exam - General 1994 Constitutional general appearance Overall: in no acute distress 05/23/2017 None Full Exam - General 1994 Constitutional general appearance Overall: well nourished 05/23/2017 None Full Exam - General 1994 Eyes conjunctiva/eyelids Overall: conjunctiva clear 05/23/2017 None Full Exam - General 1994 Eyes pupils and irises Overall: pupils equal, round, reactive to light and accomodation 05/23/2017 None Full Exam - General 1994 Eyes pupils and irises Pupil: round 05/23/2017 None Full Exam - General 1994 Eyes pupils and irises Pupil: reactive to light 05/23/2017 None Full Exam - General 1994 Ears/Nose/Throat otoscopic exam Overall: external auditory canals clear 05/23/2017 None Full Exam - General 1994 Ears/Nose/Throat otoscopic exam Overall: tympanic membranes clear 05/23/2017 None Full Exam - General 1994 Ears/Nose/Throat oral cavity/pharynx/larynx Overall: oral mucosa clear 05/23/2017 None Full Exam - General 1994 Ears/Nose/Throat oral cavity/pharynx/larynx Overall: oropharyngeal mucosa clear 05/23/2017 None Full Exam - General 1994 Ears/Nose/Throat oral cavity/pharynx/larynx Overall: no masses 05/23/2017 None Full Exam - General 1994 Respiratory auscultation Overall: breath sounds clear bilaterally 05/23/2017 None Full Exam - General 1994 Respiratory respiratory effort/rhythm Overall: no retractions 05/23/2017 None Full Exam - General 1994 Respiratory respiratory effort/rhythm Overall: normal rate 05/23/2017 None Full Exam - General 1994 Cardiovascular auscultation of heart Overall: regular rate 05/23/2017 None Full Exam - General 1994 Cardiovascular auscultation of heart Overall: normal heart sounds 05/23/2017 None Full Exam - General 1994 Cardiovascular auscultation of heart Overall: no murmurs 05/23/2017 None Full Exam - General 1994 Abdomen abdominal exam Overall: no tenderness 05/23/2017 None Full Exam - General 1994 Abdomen abdominal exam Overall: normal bowel sounds 05/23/2017 None Full Exam - General 1994 Musculoskeletal head and neck Overall: head atraumatic 05/23/2017 None Full Exam - General 1994 Musculoskeletal head and neck Overall: cervical spine benign 05/23/2017 None Full Exam - General 1994 Integument inspection of skin Overall: no rash, lesions 05/23/2017 None Full Exam - General 1994 Neurologic gait Overall: no ataxia, no unsteadiness 05/23/2017 None Full Exam - General 1994 Psychiatric orientation/consciousness Overall: oriented to person, place and time 05/23/2017 None Full Exam - General 1994 Psychiatric mood and affect Mood: happy 05/23/2017 None Full Exam - General 1994 Psychiatric mood and affect Affect: mood congruent 05/23/2017 None Full Exam - General 1994 Constitutional general appearance Overall: well developed 03/10/2017 None Full Exam - General 1994 Constitutional general appearance Overall: well nourished 03/10/2017 None Full Exam - General 1994 Eyes pupils and irises Pupil: round 03/10/2017 None Full Exam - General 1994 Eyes pupils and irises Pupil: reactive to light 03/10/2017 None Full Exam - General 1994 Ears/Nose/Throat otoscopic exam Overall: external auditory canals clear 03/10/2017 None Full Exam - General 1994 Ears/Nose/Throat otoscopic exam Overall: tympanic membranes clear 03/10/2017 None Full Exam - General 1994 Ears/Nose/Throat oral cavity/pharynx/larynx Overall: oral mucosa clear 03/10/2017 None Full Exam - General 1994 Ears/Nose/Throat oral cavity/pharynx/larynx Overall: oropharyngeal mucosa clear 03/10/2017 None Full Exam - General 1994 Ears/Nose/Throat oral cavity/pharynx/larynx Overall: no masses 03/10/2017 None Full Exam - General 1994 Respiratory auscultation Overall: breath sounds clear bilaterally 03/10/2017 None Full Exam - General 1994 Respiratory respiratory effort/rhythm Overall: no retractions 03/10/2017 None Full Exam - General 1994 Respiratory respiratory effort/rhythm Overall: normal rate 03/10/2017 None Full Exam - General 1994 Cardiovascular auscultation of heart Overall: regular rate 03/10/2017 None Full Exam - General 1994 Cardiovascular auscultation of heart Overall: normal heart sounds 03/10/2017 None Full Exam - General 1994 Cardiovascular auscultation of heart Overall: no murmurs 03/10/2017 None Full Exam - General 1994 Abdomen abdominal exam Overall: no tenderness 03/10/2017 None Full Exam - General 1994 Abdomen abdominal exam Overall: normal bowel sounds 03/10/2017 None Full Exam - General 1994 Musculoskeletal head and neck Overall: head atraumatic 03/10/2017 None Full Exam - General 1994 Musculoskeletal head and neck Overall: cervical spine benign 03/10/2017 None Full Exam - General 1994 Neurologic gait Overall: no ataxia, no unsteadiness 03/10/2017 None Full Exam - General 1994 Psychiatric orientation/consciousness Overall: oriented to person, place and time 03/10/2017 None Full Exam - General 1994 Psychiatric mood and affect Overall: normal mood and affect 03/10/2017 None Full Exam - General 1994 Lymphatic neck nodes Overall: posterior cervical chain benign 03/10/2017 None Full Exam - General 1994 Lymphatic neck nodes Overall: anterior cervical chain benign 03/10/2017 None Full Exam - General 1994 Integument inspection of skin Overall: few scattered moles, no gross abnormalities 03/10/2017 None Full Exam - General 1994 Constitutional general appearance Overall: well developed 02/07/2017 None Full Exam - General 1994 Constitutional general appearance Overall: well nourished 02/07/2017 None Full Exam - General 1994 Eyes pupils and irises Pupil: round 02/07/2017 None Full Exam - General 1994 Eyes pupils and irises Pupil: reactive to light 02/07/2017 None Full Exam - General 1994 Ears/Nose/Throat otoscopic exam Overall: external auditory canals clear 02/07/2017 None Full Exam - General 1994 Ears/Nose/Throat otoscopic exam Overall: tympanic membranes clear 02/07/2017 None Full Exam - General 1994 Ears/Nose/Throat oral cavity/pharynx/larynx Overall: oral mucosa clear 02/07/2017 None Full Exam - General 1994 Ears/Nose/Throat oral cavity/pharynx/larynx Overall: oropharyngeal mucosa clear 02/07/2017 None Full Exam - General 1994 Ears/Nose/Throat oral cavity/pharynx/larynx Overall: no masses 02/07/2017 None Full Exam - General 1994 Respiratory auscultation Overall: breath sounds clear bilaterally 02/07/2017 None Full Exam - General 1994 Respiratory respiratory effort/rhythm Overall: no retractions 02/07/2017 None Full Exam - General 1994 Respiratory respiratory effort/rhythm Overall: normal rate 02/07/2017 None Full Exam - General 1994 Cardiovascular auscultation of heart Overall: regular rate 02/07/2017 None Full Exam - General 1994 Cardiovascular auscultation of heart Overall: normal heart sounds 02/07/2017 None Full Exam - General 1994 Cardiovascular auscultation of heart Overall: no murmurs 02/07/2017 None Full Exam - General 1994 Abdomen abdominal exam Overall: no tenderness 02/07/2017 None Full Exam - General 1994 Abdomen abdominal exam Overall: normal bowel sounds 02/07/2017 None Full Exam - General 1994 Musculoskeletal head and neck Overall: head atraumatic 02/07/2017 None Full Exam - General 1994 Musculoskeletal head and neck Overall: cervical spine benign 02/07/2017 None Full Exam - General 1994 Neurologic gait Overall: no ataxia, no unsteadiness 02/07/2017 None Full Exam - General 1994 Psychiatric orientation/consciousness Overall: oriented to person, place and time 02/07/2017 None Full Exam - General 1994 Psychiatric mood and affect Overall: normal mood and affect 02/07/2017 None Full Exam - ENT Constitutional general appearance Overall: well nourished 12/30/2016 None Full Exam - ENT Constitutional general appearance Overall: well developed 12/30/2016 None Full Exam - ENT Constitutional general appearance Overall: in no acute distress 12/30/2016 None Full Exam - ENT Ears/Nose/Throat otoscopic exam Overall: external auditory canals normal 12/30/2016 None Full Exam - ENT Ears/Nose/Throat otoscopic exam Overall: tympanic membranes normal 12/30/2016 None Full Exam - ENT Ears/Nose/Throat oropharynx Overall: oral mucosa clear 12/30/2016 None Full Exam - ENT Face and Head palpation Overall: no sinus tenderness 12/30/2016 None Full Exam - ENT Respiratory inspection Overall: no retractions 12/30/2016 None Full Exam - ENT Respiratory inspection Overall: normal rate None Full Exam - ENT Respiratory auscultation Overall: breath sounds clear bilater ally 12/30/2016 None Full Exam - ENT Cardiovascular auscultation of heart Overall: regular rate 12/30/2016 None Full Exam - ENT Cardiovascular auscultation of heart Overall: normal heart sounds 12/30/2016 None Full Exam - ENT Lymphatic palpation of lymph nodes Overall: anterior cervical chain benign 12/30/2016 None Full Exam - ENT Lymphatic palpation of lymph nodes Overall: posterior cervical chain benign 12/30/2016 None Full Exam - ENT Integument inspection of skin Overall: no rash, lesions 12/30/2016 None Full Exam - ENT Neurologic orientation Overall: oriented to person, place a nd time 12/30/2016 None Full Exam - ENT Musculoskeletal left lower extremity Inspection - left foot: swelling 12/30/2016 None Full Exam - ENT Constitutional general appearance Overall: well nourished 10/19/2016 None Full Exam - ENT Constitutional general appearance Overall: well developed 10/19/2016 None Full Exam - ENT Constitutional general appearance Overall: in no acute distress 10/19/2016 None Full Exam - ENT Ears/Nose/Throat otoscopic exam Overall: external auditory canals normal 10/19/2016 None Full Exam - ENT Ears/Nose/Throat otoscopic exam Overall: tympanic membranes normal 10/19/2016 None Full Exam - ENT Ears/Nose/Throat oropharynx Overall: oral mucosa clear 10/19/2016 None Full Exam - ENT Face and Head palpation Overall: no sinus tenderness 10/19/2016 None Full Exam - ENT Respiratory inspection Overall: no retractions 10/19/2016 None Full Exam - ENT Respiratory inspection Overall: normal rate 10/2016 None Full Exam - ENT Respiratory auscultation Overall: breath sounds clear bilater ally 10/19/2016 None Full Exam - ENT Cardiovascular auscultation of heart Overall: regular rate 10/19/2016 None Full Exam - ENT Cardiovascular auscultation of heart Overall: normal heart sounds 10/19/2016 None Full Exam - ENT Lymphatic palpation of lymph nodes Overall: anterior cervical chain benign 10/19/2016 None Full Exam - ENT Lymphatic palpation of lymph nodes Overall: posterior cervical chain benign 10/19/2016 None Full Exam - ENT Integument inspection of skin Overall: no rash, lesions 10/19/2016 None Full Exam - ENT Neurologic orientation Overall: oriented to person, place a nd time 10/19/2016 None Full Exam - ENT Musculoskeletal left lower extremity Inspection - left foot: swelling 10/19/2016 and bruising left foot/he el Full Exam - ENT Musculoskeletal left lower extremity Palpation - left foot: tender 10/19/2016 at calcaneous Full Exam - General 1994 Constitutional general appearance Overall: well developed 08/09/2016 None Full Exam - General 1994 Constitutional general appearance Overall: in no acute distress 08/09/2016 None Full Exam - General 1994 Constitutional general appearance Overall: well nourished 08/09/2016 None Full Exam - General 1994 Eyes conjunctiva/eyelids Overall: conjunctiva clear 08/09/2016 None Full Exam - General 1994 Eyes pupils and irises Overall: pupils equal, round, reactive to light and accomodation 08/09/2016 None Full Exam - General 1994 Eyes pupils and irises Pupil: round 08/09/2016 None Full Exam - General 1994 Eyes pupils and irises Pupil: reactive to light 08/09/2016 None Full Exam - General 1994 Ears/Nose/Throat otoscopic exam Overall: external auditory canals clear 08/09/2016 None Full Exam - General 1994 Ears/Nose/Throat otoscopic exam Overall: tympanic membranes clear 08/09/2016 None Full Exam - General 1994 Ears/Nose/Throat oral cavity/pharynx/larynx Overall: oral mucosa clear 08/09/2016 None Full Exam - General 1994 Ears/Nose/Throat oral cavity/pharynx/larynx Overall: oropharyngeal mucosa clear 08/09/2016 None Full Exam - General 1994 Ears/Nose/Throat oral cavity/pharynx/larynx Overall: no masses 08/09/2016 None Full Exam - General 1994 Respiratory auscultation Overall: breath sounds clear bilaterally 08/09/2016 None Full Exam - General 1994 Respiratory respiratory effort/rhythm Overall: no retractions 08/09/2016 None Full Exam - General 1994 Respiratory respiratory effort/rhythm Overall: normal rate 08/09/2016 None Full Exam - General 1994 Cardiovascular auscultation of heart Overall: regular rate 08/09/2016 None Full Exam - General 1994 Cardiovascular auscultation of heart Overall: normal heart sounds 08/09/2016 None Full Exam - General 1994 Cardiovascular auscultation of heart Overall: no murmurs 08/09/2016 None Full Exam - General 1994 Abdomen abdominal exam Overall: no tenderness 08/09/2016 None Full Exam - General 1994 Abdomen abdominal exam Overall: normal bowel sounds 08/09/2016 None Full Exam - General 1994 Musculoskeletal head and neck Overall: head atraumatic 08/09/2016 None Full Exam - General 1994 Musculoskeletal head and neck Overall: cervical spine benign 08/09/2016 None Full Exam - General 1994 Integument inspection of skin Overall: no rash, lesions 08/09/2016 None Full Exam - General 1994 Neurologic gait Overall: no ataxia, no unsteadiness 08/09/2016 None Full Exam - General 1994 Psychiatric orientation/consciousness Overall: oriented to person, place and time 08/09/2016 None Full Exam - General 1994 Psychiatric mood and affect Mood: happy 08/09/2016 None Full Exam - General 1994 Psychiatric mood and affect Affect: mood congruent 08/09/2016 None Full Exam - ENT Constitutional general appearance Overall: well nourished 07/20/2016 None Full Exam - ENT Constitutional general appearance Overall: well developed 07/20/2016 None Full Exam - ENT Constitutional general appearance Overall: in no acute distress 07/20/2016 None Full Exam - ENT Ears/Nose/Throat otoscopic exam Overall: external auditory canals normal 07/20/2016 None Full Exam - ENT Ears/Nose/Throat otoscopic exam Overall: tympanic membranes normal 07/20/2016 None Full Exam - ENT Ears/Nose/Throat oropharynx Overall: oral mucosa clear 07/20/2016 None Full Exam - ENT Face and Head palpation Overall: no sinus tenderness 07/20/2016 None Full Exam - ENT Respiratory inspection Overall: no retractions 07/20/2016 None Full Exam - ENT Respiratory inspection Overall: normal rate 11/2016 None Full Exam - ENT Respiratory auscultation Overall: breath sounds clear bilater ally 07/20/2016 None Full Exam - ENT Cardiovascular auscultation of heart Overall: regular rate 07/20/2016 None Full Exam - ENT Cardiovascular auscultation of heart Overall: normal heart sounds 07/20/2016 None Full Exam - ENT Lymphatic palpation of lymph nodes Overall: anterior cervical chain benign 07/20/2016 None Full Exam - ENT Lymphatic palpation of lymph nodes Overall: posterior cervical chain benign 07/20/2016 None Full Exam - ENT Neurologic orientation Overall: oriented to person, place a nd time 07/20/2016 None Full Exam - ENT Integument inspection of skin Overall: no rash, lesions 07/20/2016 None Full Exam - General 1994 Constitutional general appearance Overall: well developed 05/27/2016 None Full Exam - General 1994 Constitutional general appearance Overall: in no acute distress 05/27/2016 None Full Exam - General 1994 Constitutional general appearance Overall: well nourished 05/27/2016 None Full Exam - General 1994 Eyes conjunctiva/eyelids Overall: conjunctiva clear 05/27/2016 None Full Exam - General 1994 Eyes pupils and irises Overall: pupils equal, round, reactive to light and accomodation 05/27/2016 None Full Exam - General 1994 Eyes pupils and irises Pupil: round 05/27/2016 None Full Exam - General 1994 Eyes pupils and irises Pupil: reactive to light 05/27/2016 None Full Exam - General 1994 Ears/Nose/Throat otoscopic exam Overall: external auditory canals clear 05/27/2016 None Full Exam - General 1994 Ears/Nose/Throat otoscopic exam Overall: tympanic membranes clear 05/27/2016 None Full Exam - General 1994 Ears/Nose/Throat oral cavity/pharynx/larynx Overall: oral mucosa clear 05/27/2016 None Full Exam - General 1994 Ears/Nose/Throat oral cavity/pharynx/larynx Overall: oropharyngeal mucosa clear 05/27/2016 None Full Exam - General 1994 Ears/Nose/Throat oral cavity/pharynx/larynx Overall: no masses 05/27/2016 None Full Exam - General 1994 Respiratory auscultation Overall: breath sounds clear bilaterally 05/27/2016 None Full Exam - General 1994 Respiratory respiratory effort/rhythm Overall: no retractions 05/27/2016 None Full Exam - General 1994 Respiratory respiratory effort/rhythm Overall: normal rate 05/27/2016 None Full Exam - General 1994 Cardiovascular auscultation of heart Overall: regular rate 05/27/2016 None Full Exam - General 1994 Cardiovascular auscultation of heart Overall: normal heart sounds 05/27/2016 None Full Exam - General 1994 Cardiovascular auscultation of heart Overall: no murmurs 05/27/2016 None Full Exam - General 1994 Abdomen abdominal exam Overall: no tenderness 05/27/2016 None Full Exam - General 1994 Abdomen abdominal exam Overall: normal bowel sounds 05/27/2016 None Full Exam - General 1994 Musculoskeletal head and neck Overall: head atraumatic 05/27/2016 None Full Exam - General 1994 Musculoskeletal head and neck Overall: cervical spine benign 05/27/2016 None Full Exam - General 1994 Integument inspection of skin Overall: no rash, lesions 05/27/2016 None Full Exam - General 1994 Neurologic gait Overall: no ataxia, no unsteadiness 05/27/2016 None Full Exam - General 1994 Psychiatric orientation/consciousness Overall: oriented to person, place and time 05/27/2016 None Full Exam - General 1994 Psychiatric mood and affect Mood: happy 05/27/2016 None Full Exam - General 1994 Psychiatric mood and affect Affect: mood congruent 05/27/2016 None Full Exam - ENT Constitutional general appearance Overall: well nourished 04/29/2016 None Full Exam - ENT Constitutional general appearance Overall: well developed 04/29/2016 None Full Exam - ENT Constitutional general appearance Overall: in no acute distress 04/29/2016 None Full Exam - ENT Ears/Nose/Throat otoscopic exam Overall: external auditory canals normal 04/29/2016 None Full Exam - ENT Ears/Nose/Throat otoscopic exam Overall: tympanic membranes normal 04/29/2016 None Full Exam - ENT Ears/Nose/Throat oropharynx Overall: oral mucosa clear 04/29/2016 None Full Exam - ENT Face and Head palpation Overall: no sinus tenderness 04/29/2016 None Full Exam - ENT Respiratory inspection Overall: no retractions 04/29/2016 None Full Exam - ENT Respiratory inspection Overall: normal rate None Full Exam - ENT Respiratory auscultation Overall: breath sounds clear bilater ally 04/29/2016 None Full Exam - ENT Cardiovascular auscultation of heart Overall: regular rate 04/29/2016 None Full Exam - ENT Cardiovascular auscultation of heart Overall: normal heart sounds 04/29/2016 None Full Exam - ENT Lymphatic palpation of lymph nodes Overall: anterior cervical chain benign 04/29/2016 None Full Exam - ENT Lymphatic palpation of lymph nodes Overall: posterior cervical chain benign 04/29/2016 None Full Exam - ENT Neurologic orientation Overall: oriented to person, place a nd time 04/29/2016 None Full Exam - General 1994 Constitutional general appearance Overall: well developed 04/02/2016 None Full Exam - General 1994 Constitutional general appearance Overall: well nourished 04/02/2016 None Full Exam - General 1994 Constitutional general appearance Evidence of Distress: tearful 04/02/2016 --Improved Full Exam - General 1994 Eyes pupils and irises Pupil: round 04/02/2016 None Full Exam - General 1994 Eyes pupils and irises Pupil: reactive to light 04/02/2016 None Full Exam - General 1994 Ears/Nose/Throat otoscopic exam Overall: external auditory canals clear 04/02/2016 None Full Exam - General 1994 Ears/Nose/Throat otoscopic exam Overall: tympanic membranes clear 04/02/2016 None Full Exam - General 1994 Ears/Nose/Throat oral cavity/pharynx/larynx Overall: oral mucosa clear 04/02/2016 None Full Exam - General 1994 Ears/Nose/Throat oral cavity/pharynx/larynx Overall: oropharyngeal mucosa clear 04/02/2016 None Full Exam - General 1994 Ears/Nose/Throat oral cavity/pharynx/larynx Overall: no masses 04/02/2016 None Full Exam - General 1994 Respiratory auscultation Overall: breath sounds clear bilaterally 04/02/2016 None Full Exam - General 1994 Respiratory respiratory effort/rhythm Overall: no retractions 04/02/2016 None Full Exam - General 1994 Respiratory respiratory effort/rhythm Overall: normal rate 04/02/2016 None Full Exam - General 1994 Cardiovascular auscultation of heart Overall: regular rate 04/02/2016 None Full Exam - General 1994 Cardiovascular auscultation of heart Overall: normal heart sounds 04/02/2016 None Full Exam - General 1994 Cardiovascular auscultation of heart Overall: no murmurs 04/02/2016 None Full Exam - General 1994 Abdomen abdominal exam Overall: no tenderness 04/02/2016 None Full Exam - General 1994 Abdomen abdominal exam Overall: normal bowel sounds 04/02/2016 None Full Exam - General 1994 Musculoskeletal head and neck Overall: head atraumatic 04/02/2016 None Full Exam - General 1994 Musculoskeletal head and neck Overall: cervical spine benign 04/02/2016 None Full Exam - General 1994 Neurologic gait Overall: no ataxia, no unsteadiness 04/02/2016 None Full Exam - General 1994 Psychiatric orientation/consciousness Overall: oriented to person, place and time 04/02/2016 None Full Exam - General 1994 Psychiatric mood and affect Mood: depressed 04/02/2016 --Improved Full Exam - General 1994 Psychiatric mood and affect Mood: anxious 04/02/2016 --Improved Full Exam - General 1994 Psychiatric mood and affect Appropriateness: inappropriate emotional responses 04/02/2016 --Improved Full Exam - General 1994 Constitutional general appearance Overall: well developed 03/18/2016 None Full Exam - General 1994 Constitutional general appearance Overall: well nourished 03/18/2016 None Full Exam - General 1994 Eyes pupils and irises Pupil: round 03/18/2016 None Full Exam - General 1994 Eyes pupils and irises Pupil: reactive to light 03/18/2016 None Full Exam - General 1994 Ears/Nose/Throat otoscopic exam Overall: external auditory canals clear 03/18/2016 None Full Exam - General 1994 Ears/Nose/Throat otoscopic exam Overall: tympanic membranes clear 03/18/2016 None Full Exam - General 1994 Ears/Nose/Throat oral cavity/pharynx/larynx Overall: oral mucosa clear 03/18/2016 None Full Exam - General 1994 Ears/Nose/Throat oral cavity/pharynx/larynx Overall: oropharyngeal mucosa clear 03/18/2016 None Full Exam - General 1994 Ears/Nose/Throat oral cavity/pharynx/larynx Overall: no masses 03/18/2016 None Full Exam - General 1994 Respiratory auscultation Overall: breath sounds clear bilaterally 03/18/2016 None Full Exam - General 1994 Respiratory respiratory effort/rhythm Overall: no retractions 03/18/2016 None Full Exam - General 1994 Respiratory respiratory effort/rhythm Overall: normal rate 03/18/2016 None Full Exam - General 1994 Cardiovascular auscultation of heart Overall: regular rate 03/18/2016 None Full Exam - General 1994 Cardiovascular auscultation of heart Overall: normal heart sounds 03/18/2016 None Full Exam - General 1994 Cardiovascular auscultation of heart Overall: no murmurs 03/18/2016 None Full Exam - General 1994 Abdomen abdominal exam Overall: no tenderness 03/18/2016 None Full Exam - General 1994 Abdomen abdominal exam Overall: normal bowel sounds 03/18/2016 None Full Exam - General 1994 Musculoskeletal head and neck Overall: head atraumatic 03/18/2016 None Full Exam - General 1994 Musculoskeletal head and neck Overall: cervical spine benign 03/18/2016 None Full Exam - General 1994 Neurologic gait Overall: no ataxia, no unsteadiness 03/18/2016 None Full Exam - General 1994 Psychiatric orientation/consciousness Overall: oriented to person, place and time 03/18/2016 None Full Exam - General 1994 Constitutional general appearance Evidence of Distress: tearful 03/18/2016 None Full Exam - General 1994 Psychiatric mood and affect Mood: anxious 03/18/2016 None Full Exam - General 1994 Psychiatric mood and affect Mood: depressed 03/18/2016 None Full Exam - General 1994 Psychiatric mood and affect Appropriateness: inappropriate emotional responses 03/18/2016 None Full Exam - ENT Constitutional general appearance Overall: well nourished 01/26/2016 None Full Exam - ENT Constitutional general appearance Overall: well developed 01/26/2016 None Full Exam - ENT Constitutional general appearance Overall: in no acute distress 01/26/2016 None Full Exam - ENT Ears/Nose/Throat otoscopic exam Overall: external auditory canals normal 01/26/2016 None Full Exam - ENT Ears/Nose/Throat otoscopic exam Overall: tympanic membranes normal 01/26/2016 None Full Exam - ENT Ears/Nose/Throat oropharynx Overall: oral mucosa clear 01/26/2016 None Full Exam - ENT Face and Head palpation Overall: no sinus tenderness 01/26/2016 None Full Exam - ENT Respiratory inspection Overall: no retractions 01/26/2016 None Full Exam - ENT Respiratory inspection Overall: normal rate 04/2016 None Full Exam - ENT Respiratory auscultation Overall: breath sounds clear bilater ally 01/26/2016 None Full Exam - ENT Cardiovascular auscultation of heart Overall: regular rate 01/26/2016 None Full Exam - ENT Cardiovascular auscultation of heart Overall: normal heart sounds 01/26/2016 None Full Exam - ENT Lymphatic palpation of lymph nodes Overall: anterior cervical chain benign 01/26/2016 None Full Exam - ENT Lymphatic palpation of lymph nodes Overall: posterior cervical chain benign 01/26/2016 None Full Exam - ENT Neurologic orientation Overall: oriented to person, place a nd time 01/26/2016 None Full Exam - Cardiology Integument inspection/palpation Location: back 01/01/2016 [facility] back Full Exam - General 1994 Constitutional general appearance Overall: well developed 12/25/2015 None Full Exam - General 1994 Constitutional general appearance Overall: in no acute distress 12/25/2015 None Full Exam - General 1994 Constitutional general appearance Overall: well nourished 12/25/2015 None Full Exam - General 1994 Eyes conjunctiva/eyelids Overall: conjunctiva clear 12/25/2015 None Full Exam - General 1994 Eyes pupils and irises Overall: pupils equal, round, reactive to light and accomodation 12/25/2015 None Full Exam - General 1994 Eyes pupils and irises Pupil: round 12/25/2015 None Full Exam - General 1994 Eyes pupils and irises Pupil: reactive to light 12/25/2015 None Full Exam - General 1994 Ears/Nose/Throat otoscopic exam Overall: external auditory canals clear 12/25/2015 None Full Exam - General 1994 Ears/Nose/Throat otoscopic exam Overall: tympanic membranes clear 12/25/2015 None Full Exam - General 1994 Ears/Nose/Throat oral cavity/pharynx/larynx Overall: oral mucosa clear 12/25/2015 None Full Exam - General 1994 Ears/Nose/Throat oral cavity/pharynx/larynx Overall: oropharyngeal mucosa clear 12/25/2015 None Full Exam - General 1994 Ears/Nose/Throat oral cavity/pharynx/larynx Overall: no masses 12/25/2015 None Full Exam - General 1994 Respiratory auscultation Overall: breath sounds clear bilaterally 12/25/2015 None Full Exam - General 1994 Respiratory respiratory effort/rhythm Overall: no retractions 12/25/2015 None Full Exam - General 1994 Respiratory respiratory effort/rhythm Overall: normal rate 12/25/2015 None Full Exam - General 1994 Cardiovascular auscultation of heart Overall: regular rate 12/25/2015 None Full Exam - General 1994 Cardiovascular auscultation of heart Overall: normal heart sounds 12/25/2015 None Full Exam - General 1994 Cardiovascular auscultation of heart Overall: no murmurs 12/25/2015 None Full Exam - General 1994 Abdomen abdominal exam Overall: no tenderness 12/25/2015 None Full Exam - General 1994 Abdomen abdominal exam Overall: normal bowel sounds 12/25/2015 None Full Exam - General 1994 Musculoskeletal head and neck Overall: head atraumatic 12/25/2015 None Full Exam - General 1994 Musculoskeletal head and neck Overall: cervical spine benign 12/25/2015 None Full Exam - General 1994 Integument inspection of skin Overall: no rash, lesions 12/25/2015 None Full Exam - General 1994 Neurologic gait Overall: no ataxia, no unsteadiness 12/25/2015 None Full Exam - General 1994 Psychiatric orientation/consciousness Overall: oriented to person, place and time 12/25/2015 None Full Exam - General 1994 Psychiatric mood and affect Mood: happy 12/25/2015 None Full Exam - General 1994 Psychiatric mood and affect Affect: mood congruent 12/25/2015 None Full Exam - General 1994 Constitutional general appearance Overall: well developed 12/08/2015 None Full Exam - General 1994 Constitutional general appearance Overall: in no acute distress 12/08/2015 None Full Exam - General 1994 Constitutional general appearance Overall: well nourished 12/08/2015 None Full Exam - General 1994 Eyes conjunctiva/eyelids Overall: conjunctiva clear 12/08/2015 None Full Exam - General 1994 Eyes pupils and irises Overall: pupils equal, round, reactive to light and accomodation 12/08/2015 None Full Exam - General 1994 Eyes pupils and irises Pupil: round 12/08/2015 None Full Exam - General 1994 Eyes pupils and irises Pupil: reactive to light 12/08/2015 None Full Exam - General 1994 Ears/Nose/Throat otoscopic exam Overall: external auditory canals clear 12/08/2015 None Full Exam - General 1994 Ears/Nose/Throat otoscopic exam Overall: tympanic membranes clear 12/08/2015 None Full Exam - General 1994 Ears/Nose/Throat oral cavity/pharynx/larynx Overall: oral mucosa clear 12/08/2015 None Full Exam - General 1994 Ears/Nose/Throat oral cavity/pharynx/larynx Overall: oropharyngeal mucosa clear 12/08/2015 None Full Exam - General 1994 Ears/Nose/Throat oral cavity/pharynx/larynx Overall: no masses 12/08/2015 None Full Exam - General 1994 Respiratory auscultation Overall: breath sounds clear bilaterally 12/08/2015 None Full Exam - General 1994 Respiratory respiratory effort/rhythm Overall: no retractions 12/08/2015 None Full Exam - General 1994 Respiratory respiratory effort/rhythm Overall: normal rate 12/08/2015 None Full Exam - General 1994 Cardiovascular auscultation of heart Overall: regular rate 12/08/2015 None Full Exam - General 1994 Cardiovascular auscultation of heart Overall: normal heart sounds 12/08/2015 None Full Exam - General 1994 Cardiovascular auscultation of heart Overall: no murmurs 12/08/2015 None Full Exam - General 1994 Abdomen abdominal exam Overall: no tenderness 12/08/2015 None Full Exam - General 1994 Abdomen abdominal exam Overall: normal bowel sounds 12/08/2015 None Full Exam - General 1994 Musculoskeletal head and neck Overall: head atraumatic 12/08/2015 None Full Exam - General 1994 Musculoskeletal head and neck Overall: cervical spine benign 12/08/2015 None Full Exam - General 1994 Integument inspection of skin Overall: no rash, lesions 12/08/2015 None Full Exam - General 1994 Neurologic gait Overall: no ataxia, no unsteadiness 12/08/2015 None Full Exam - General 1994 Psychiatric orientation/consciousness Overall: oriented to person, place and time 12/08/2015 None Full Exam - General 1994 Psychiatric mood and affect Mood: happy 12/08/2015 None Full Exam - General 1994 Psychiatric mood and affect Affect: mood congruent 12/08/2015 None Full Exam - General 1994 Abdomen abdominal exam Epigastric: non-tender to palpation 12/08/2015 mild Full Exam - General 1994 Constitutional general appearance Overall: well developed 09/23/2015 None Full Exam - General 1994 Constitutional general appearance Overall: in no acute distress 09/23/2015 None Full Exam - General 1994 Constitutional general appearance Overall: well nourished 09/23/2015 None Full Exam - General 1994 Eyes conjunctiva/eyelids Overall: conjunctiva clear 09/23/2015 None Full Exam - General 1994 Eyes pupils and irises Overall: pupils equal, round, reactive to light and accomodation 09/23/2015 None Full Exam - General 1994 Eyes pupils and irises Pupil: round 09/23/2015 None Full Exam - General 1994 Eyes pupils and irises Pupil: reactive to light 09/23/2015 None Full Exam - General 1994 Ears/Nose/Throat otoscopic exam Overall: external auditory canals clear 09/23/2015 None Full Exam - General 1994 Ears/Nose/Throat otoscopic exam Overall: tympanic membranes clear 09/23/2015 None Full Exam - General 1994 Ears/Nose/Throat oral cavity/pharynx/larynx Overall: oral mucosa clear 09/23/2015 None Full Exam - General 1994 Ears/Nose/Throat oral cavity/pharynx/larynx Overall: oropharyngeal mucosa clear 09/23/2015 None Full Exam - General 1994 Ears/Nose/Throat oral cavity/pharynx/larynx Overall: no masses 09/23/2015 None Full Exam - General 1994 Respiratory auscultation Overall: breath sounds clear bilaterally 09/23/2015 None Full Exam - General 1994 Respiratory respiratory effort/rhythm Overall: no retractions 09/23/2015 None Full Exam - General 1994 Respiratory respiratory effort/rhythm Overall: normal rate 09/23/2015 None Full Exam - General 1994 Cardiovascular auscultation of heart Overall: regular rate 09/23/2015 None Full Exam - General 1994 Cardiovascular auscultation of heart Overall: normal heart sounds 09/23/2015 None Full Exam - General 1994 Cardiovascular auscultation of heart Overall: no murmurs 09/23/2015 None Full Exam - General 1994 Abdomen abdominal exam Overall: no tenderness 09/23/2015 None Full Exam - General 1994 Abdomen abdominal exam Overall: normal bowel sounds 09/23/2015 None Full Exam - General 1994 Musculoskeletal head and neck Overall: head atraumatic 09/23/2015 None Full Exam - General 1994 Musculoskeletal head and neck Overall: cervical spine benign 09/23/2015 None Full Exam - General 1994 Integument inspection of skin Overall: no rash, lesions 09/23/2015 None Full Exam - General 1994 Neurologic gait Overall: no ataxia, no unsteadiness 09/23/2015 None Full Exam - General 1994 Psychiatric orientation/consciousness Overall: oriented to person, place and time 09/23/2015 None Full Exam - General 1994 Psychiatric mood and affect Mood: happy 09/23/2015 None Full Exam - General 1994 Psychiatric mood and affect Affect: mood congruent 09/23/2015 None Full Exam - General 1994 Constitutional general appearance Overall: well developed 06/19/2015 None Full Exam - General 1994 Constitutional general appearance Overall: in no acute distress 06/19/2015 None Full Exam - General 1994 Constitutional general appearance Overall: well nourished 06/19/2015 None Full Exam - General 1994 Eyes conjunctiva/eyelids Overall: conjunctiva clear 06/19/2015 None Full Exam - General 1994 Eyes pupils and irises Overall: pupils equal, round, reactive to light and accomodation 06/19/2015 None Full Exam - General 1994 Eyes pupils and irises Pupil: round 06/19/2015 None Full Exam - General 1994 Eyes pupils and irises Pupil: reactive to light 06/19/2015 None Full Exam - General 1994 Ears/Nose/Throat otoscopic exam Overall: external auditory canals clear 06/19/2015 None Full Exam - General 1994 Ears/Nose/Throat otoscopic exam Overall: tympanic membranes clear 06/19/2015 None Full Exam - General 1994 Ears/Nose/Throat oral cavity/pharynx/larynx Overall: oral mucosa clear 06/19/2015 None Full Exam - General 1994 Ears/Nose/Throat oral cavity/pharynx/larynx Overall: oropharyngeal mucosa clear 06/19/2015 None Full Exam - General 1994 Ears/Nose/Throat oral cavity/pharynx/larynx Overall: no masses 06/19/2015 None Full Exam - General 1994 Respiratory auscultation Overall: breath sounds clear bilaterally 06/19/2015 None Full Exam - General 1994 Respiratory respiratory effort/rhythm Overall: no retractions 06/19/2015 None Full Exam - General 1994 Respiratory respiratory effort/rhythm Overall: normal rate 06/19/2015 None Full Exam - General 1994 Cardiovascular auscultation of heart Overall: regular rate 06/19/2015 None Full Exam - General 1994 Cardiovascular auscultation of heart Overall: normal heart sounds 06/19/2015 None Full Exam - General 1994 Cardiovascular auscultation of heart Overall: no murmurs 06/19/2015 None Full Exam - General 1994 Abdomen abdominal exam Overall: no tenderness 06/19/2015 None Full Exam - General 1994 Abdomen abdominal exam Overall: normal bowel sounds 06/19/2015 None Full Exam - General 1994 Musculoskeletal head and neck Overall: head atraumatic 06/19/2015 None Full Exam - General 1994 Musculoskeletal head and neck Overall: cervical spine benign 06/19/2015 None Full Exam - General 1994 Integument inspection of skin Overall: no rash, lesions 06/19/2015 None Full Exam - General 1994 Neurologic gait Overall: no ataxia, no unsteadiness 06/19/2015 None Full Exam - General 1994 Psychiatric orientation/consciousness Overall: oriented to person, place and time 06/19/2015 None Full Exam - General 1994 Psychiatric mood and affect Mood: happy 06/19/2015 None Full Exam - General 1994 Psychiatric mood and affect Affect: mood congruent 06/19/2015 None Full Exam - General 1994 Constitutional general appearance Overall: well developed 05/19/2015 None Full Exam - General 1994 Constitutional general appearance Overall: in no acute distress 05/19/2015 None Full Exam - General 1994 Constitutional general appearance Overall: well nourished 05/19/2015 None Full Exam - General 1994 Eyes conjunctiva/eyelids Overall: conjunctiva clear 05/19/2015 None Full Exam - General 1994 Eyes pupils and irises Overall: pupils equal, round, reactive to light and accomodation 05/19/2015 None Full Exam - General 1994 Eyes pupils and irises Pupil: round 05/19/2015 None Full Exam - General 1994 Eyes pupils and irises Pupil: reactive to light 05/19/2015 None Full Exam - General 1994 Ears/Nose/Throat otoscopic exam Overall: external auditory canals clear 05/19/2015 None Full Exam - General 1994 Ears/Nose/Throat otoscopic exam Overall: tympanic membranes clear 05/19/2015 None Full Exam - General 1994 Ears/Nose/Throat oral cavity/pharynx/larynx Overall: oral mucosa clear 05/19/2015 None Full Exam - General 1994 Ears/Nose/Throat oral cavity/pharynx/larynx Overall: oropharyngeal mucosa clear 05/19/2015 None Full Exam - General 1994 Ears/Nose/Throat oral cavity/pharynx/larynx Overall: no masses 05/19/2015 None Full Exam - General 1994 Respiratory auscultation Overall: breath sounds clear bilaterally 05/19/2015 None Full Exam - General 1994 Respiratory respiratory effort/rhythm Overall: no retractions 05/19/2015 None Full Exam - General 1994 Respiratory respiratory effort/rhythm Overall: normal rate 05/19/2015 None Full Exam - General 1994 Cardiovascular auscultation of heart Overall: regular rate 05/19/2015 None Full Exam - General 1994 Cardiovascular auscultation of heart Overall: normal heart sounds 05/19/2015 None Full Exam - General 1994 Cardiovascular auscultation of heart Overall: no murmurs 05/19/2015 None Full Exam - General 1994 Abdomen abdominal exam Overall: no tenderness 05/19/2015 None Full Exam - General 1994 Abdomen abdominal exam Overall: normal bowel sounds 05/19/2015 None Full Exam - General 1994 Musculoskeletal head and neck Overall: head atraumatic 05/19/2015 None Full Exam - General 1994 Musculoskeletal head and neck Overall: cervical spine benign 05/19/2015 None Full Exam - General 1994 Neurologic gait Overall: no ataxia, no unsteadiness 05/19/2015 None Full Exam - General 1994 Psychiatric orientation/consciousness Overall: oriented to person, place and time 05/19/2015 None Full Exam - General 1994 Psychiatric mood and affect Mood: happy 05/19/2015 None Full Exam - General 1994 Psychiatric mood and affect Affect: mood congruent 05/19/2015 None Full Exam - General 1994 Integument inspection of skin Overall: no rash, lesions 05/19/2015 None Full Exam - General 1994 Constitutional general appearance Overall: well developed 04/28/2015 None Full Exam - General 1994 Constitutional general appearance Overall: in no acute distress 04/28/2015 None Full Exam - General 1994 Constitutional general appearance Overall: well nourished 04/28/2015 None Full Exam - General 1994 Eyes conjunctiva/eyelids Overall: conjunctiva clear 04/28/2015 None Full Exam - General 1994 Eyes pupils and irises Overall: pupils equal, round, reactive to light and accomodation 04/28/2015 None Full Exam - General 1994 Eyes pupils and irises Pupil: round 04/28/2015 None Full Exam - General 1994 Eyes pupils and irises Pupil: reactive to light 04/28/2015 None Full Exam - General 1994 Ears/Nose/Throat otoscopic exam Overall: external auditory canals clear 04/28/2015 None Full Exam - General 1994 Ears/Nose/Throat otoscopic exam Overall: tympanic membranes clear 04/28/2015 None Full Exam - General 1994 Ears/Nose/Throat oral cavity/pharynx/larynx Overall: oral mucosa clear 04/28/2015 None Full Exam - General 1994 Ears/Nose/Throat oral cavity/pharynx/larynx Overall: oropharyngeal mucosa clear 04/28/2015 None Full Exam - General 1994 Ears/Nose/Throat oral cavity/pharynx/larynx Overall: no masses 04/28/2015 None Full Exam - General 1994 Respiratory auscultation Overall: breath sounds clear bilaterally 04/28/2015 None Full Exam - General 1994 Respiratory respiratory effort/rhythm Overall: no retractions 04/28/2015 None Full Exam - General 1994 Respiratory respiratory effort/rhythm Overall: normal rate 04/28/2015 None Full Exam - General 1994 Cardiovascular auscultation of heart Overall: regular rate 04/28/2015 None Full Exam - General 1994 Cardiovascular auscultation of heart Overall: normal heart sounds 04/28/2015 None Full Exam - General 1994 Cardiovascular auscultation of heart Overall: no murmurs 04/28/2015 None Full Exam - General 1994 Abdomen abdominal exam Overall: no tenderness 04/28/2015 None Full Exam - General 1994 Abdomen abdominal exam Overall: normal bowel sounds 04/28/2015 None Full Exam - General 1994 Musculoskeletal head and neck Overall: head atraumatic 04/28/2015 None Full Exam - General 1994 Musculoskeletal head and neck Overall: cervical spine benign 04/28/2015 None Full Exam - General 1994 Neurologic gait Overall: no ataxia, no unsteadiness 04/28/2015 None Full Exam - General 1994 Psychiatric orientation/consciousness Overall: oriented to person, place and time 04/28/2015 None Full Exam - General 1994 Psychiatric mood and affect Mood: happy 04/28/2015 None Full Exam - General 1994 Psychiatric mood and affect Affect: mood congruent 04/28/2015 None Full Exam - General 1994 Integument inspection of skin Rash/Lesions: macule 04/28/2015 None Full Exam - General 1994 Integument inspection of skin Location: abdomen 04/28/2015 None Full Exam - General 1994 Integument inspection of skin Location: chest 04/28/2015 None Full Exam - General 1994 Constitutional general appearance Overall: well developed 03/18/2015 None Full Exam - General 1994 Constitutional general appearance Overall: in no acute distress 03/18/2015 None Full Exam - General 1994 Constitutional general appearance Overall: well nourished 03/18/2015 None Full Exam - General 1994 Eyes conjunctiva/eyelids Overall: conjunctiva clear 03/18/2015 None Full Exam - General 1994 Eyes pupils and irises Overall: pupils equal, round, reactive to light and accomodation 03/18/2015 None Full Exam - General 1994 Eyes pupils and irises Pupil: round 03/18/2015 None Full Exam - General 1994 Eyes pupils and irises Pupil: reactive to light 03/18/2015 None Full Exam - General 1994 Ears/Nose/Throat otoscopic exam Overall: external auditory canals clear 03/18/2015 None Full Exam - General 1994 Ears/Nose/Throat otoscopic exam Overall: tympanic membranes clear 03/18/2015 None Full Exam - General 1994 Ears/Nose/Throat oral cavity/pharynx/larynx Overall: oral mucosa clear 03/18/2015 None Full Exam - General 1994 Ears/Nose/Throat oral cavity/pharynx/larynx Overall: oropharyngeal mucosa clear 03/18/2015 None Full Exam - General 1994 Ears/Nose/Throat oral cavity/pharynx/larynx Overall: no masses 03/18/2015 None Full Exam - General 1994 Respiratory auscultation Overall: breath sounds clear bilaterally 03/18/2015 None Full Exam - General 1994 Respiratory respiratory effort/rhythm Overall: no retractions 03/18/2015 None Full Exam - General 1994 Respiratory respiratory effort/rhythm Overall: normal rate 03/18/2015 None Full Exam - General 1994 Cardiovascular auscultation of heart Overall: regular rate 03/18/2015 None Full Exam - General 1994 Cardiovascular auscultation of heart Overall: normal heart sounds 03/18/2015 None Full Exam - General 1994 Cardiovascular auscultation of heart Overall: no murmurs 03/18/2015 None Full Exam - General 1994 Abdomen abdominal exam Overall: no tenderness 03/18/2015 None Full Exam - General 1994 Abdomen abdominal exam Overall: normal bowel sounds 03/18/2015 None Full Exam - General 1994 Musculoskeletal head and neck Overall: head atraumatic 03/18/2015 None Full Exam - General 1994 Musculoskeletal head and neck Overall: cervical spine benign 03/18/2015 None Full Exam - General 1994 Neurologic gait Overall: no ataxia, no unsteadiness 03/18/2015 None Full Exam - General 1994 Psychiatric orientation/consciousness Overall: oriented to person, place and time 03/18/2015 None Full Exam - General 1994 Psychiatric mood and affect Affect: mood congruent 03/18/2015 None Full Exam - General 1994 Psychiatric mood and affect Mood: happy 03/18/2015 None Full Exam - Dermatology Constitutional general appearance Overall: well nourished 02/27/2015 None Full Exam - Dermatology Constitutional general appearance Overall: well developed 02/27/2015 None Full Exam - Dermatology Constitutional general appearance Overall: in no acute distress 02/27/2015 None Full Exam - Dermatology Constitutional general appearance Overall: of normal body habitus 02/27/2015 None Full Exam - Dermatology Constitutional general appearance Overall: well groomed 02/27/2015 None Full Exam - Dermatology Psychiatric orientation Overall: oriented to person, place and time 02/27/2015 None Full Exam - Dermatology Integument insp & palp - back Location: on the upper back 02/27/2015 brown warty lesion with " stuck on" appearance-no inflammation, redness noted Full Exam - General 1994 Constitutional general appearance Overall: well developed 02/13/2015 None Full Exam - General 1994 Constitutional general appearance Overall: in no acute distress 02/13/2015 None Full Exam - General 1994 Constitutional general appearance Overall: well nourished 02/13/2015 None Full Exam - General 1994 Eyes conjunctiva/eyelids Overall: conjunctiva clear 02/13/2015 None Full Exam - General 1994 Eyes pupils and irises Overall: pupils equal, round, reactive to light and accomodation 02/13/2015 None Full Exam - General 1994 Eyes pupils and irises Pupil: round 02/13/2015 None Full Exam - General 1994 Eyes pupils and irises Pupil: reactive to light 02/13/2015 None Full Exam - General 1994 Ears/Nose/Throat otoscopic exam Overall: external auditory canals clear 02/13/2015 None Full Exam - General 1994 Ears/Nose/Throat otoscopic exam Overall: tympanic membranes clear 02/13/2015 None Full Exam - General 1994 Ears/Nose/Throat oral cavity/pharynx/larynx Overall: oral mucosa clear 02/13/2015 None Full Exam - General 1994 Ears/Nose/Throat oral cavity/pharynx/larynx Overall: oropharyngeal mucosa clear 02/13/2015 None Full Exam - General 1994 Ears/Nose/Throat oral cavity/pharynx/larynx Overall: no masses 02/13/2015 None Full Exam - General 1994 Respiratory auscultation Overall: breath sounds clear bilaterally 02/13/2015 None Full Exam - General 1994 Respiratory respiratory effort/rhythm Overall: no retractions 02/13/2015 None Full Exam - General 1994 Respiratory respiratory effort/rhythm Overall: normal rate 02/13/2015 None Full Exam - General 1994 Cardiovascular extremities Edema present: pitting 02/13/2015 None Full Exam - General 1994 Cardiovascular extremities Edema present: severity 1+ - 4+: 2 02/13/2015 None Full Exam - General 1994 Cardiovascular auscultation of heart Overall: regular rate 02/13/2015 None Full Exam - General 1994 Cardiovascular auscultation of heart Overall: normal heart sounds 02/13/2015 None Full Exam - General 1994 Cardiovascular auscultation of heart Overall: no murmurs 02/13/2015 None Full Exam - General 1994 Abdomen abdominal exam Overall: no tenderness 02/13/2015 None Full Exam - General 1994 Abdomen abdominal exam Overall: normal bowel sounds 02/13/2015 None Full Exam - General 1994 Musculoskeletal head and neck Overall: head atraumatic 02/13/2015 None Full Exam - General 1994 Musculoskeletal head and neck Overall: cervical spine benign 02/13/2015 None Full Exam - General 1994 Neurologic gait Overall: no ataxia, no unsteadiness 02/13/2015 None Full Exam - General 1994 Psychiatric orientation/consciousness Overall: oriented to person, place and time 02/13/2015 None Full Exam - General 1994 Psychiatric mood and affect Mood: flat 02/13/2015 None Full Exam - General 1994 Psychiatric mood and affect Affect: mood congruent 02/13/2015 None Full Exam - General 1994 Psychiatric orientation/consciousness Overall: oriented to person, place and time 11/18/2014 None Full Exam - General 1994 Neurologic cranial nerves Overall: crainial nerves 2 - 12 grossly intact 11/18/2014 None Full Exam - General 1994 Integument inspection of skin Overall: few scattered moles, no gross abnormalities 11/18/2014 None Full Exam - General 1994 Musculoskeletal head and neck Overall: head atraumatic 11/18/2014 None Full Exam - General 1994 Musculoskeletal head and neck Overall: TMJ benign 11/18/2014 None Full Exam - General 1994 Musculoskeletal head and neck Overall: cervical spine benign 11/18/2014 None Full Exam - General 1994 Musculoskeletal gait and station Overall: normal gait 11/18/2014 None Full Exam - General 1994 Musculoskeletal gait and station Overall: normal station 11/18/2014 None Full Exam - General 1994 Musculoskeletal spine, ribs and pelvis Overall: ribs benign 11/18/2014 None Full Exam - General 1994 Musculoskeletal spine, ribs and pelvis Overall: spine benign 11/18/2014 None Full Exam - General 1994 Musculoskeletal spine, ribs and pelvis Overall: right hip benign 11/18/2014 None Full Exam - General 1994 Musculoskeletal spine, ribs and pelvis Overall: left hip benign 11/18/2014 None Full Exam - General 1994 Musculoskeletal spine, ribs and pelvis Overall: good posture 11/18/2014 None Full Exam - General 1994 Musculoskeletal spine, ribs and pelvis Sacroiliac joints: tender left sacroiliac joint 11/18/2014 None Full Exam - General 1994 Musculoskeletal spine, ribs and pelvis Sacroiliac joints: tender right sacroiliac joint 11/18/2014 None Full Exam - General 1994 Musculoskeletal spine, ribs and pelvis Inspection: a normal exam 11/18/2014 None Full Exam - General 1994 Musculoskeletal spine, ribs and pelvis Muscle Strength/Tone: a normal exam 11/18/2014 None Full Exam - General 1994 Musculoskeletal spine, ribs and pelvis Stability: a normal exam 11/18/2014 None Full Exam - General 1994 Musculoskeletal spine, ribs and pelvis ROM: a normal exam 11/18/2014 None Full Exam - General 1994 Musculoskeletal spine, ribs and pelvis Ribs: normal chest expansion 11/18/2014 None Full Exam - General 1994 Musculoskeletal lower extremity Overall: knee benign 11/18/2014 None Full Exam - General 1994 Musculoskeletal lower extremity Overall: ankle benign 11/18/2014 None Full Exam - General 1994 Musculoskeletal lower extremity Overall: foot benign 11/18/2014 None Full Exam - General 1994 Musculoskeletal upper extremity Overall: normal shoulder 11/18/2014 None Full Exam - General 1994 Musculoskeletal upper extremity Overall: normal elbow 11/18/2014 None Full Exam - General 1994 Musculoskeletal upper extremity Overall: normal wrist 11/18/2014 None Full Exam - General 1994 Musculoskeletal upper extremity ROM - shoulder: a normal exam 11/18/2014 None Full Exam - General 1994 Musculoskeletal upper extremity Palpation - upper arm: tenderness 11/18/2014 None Full Exam - General 1994 Lymphatic neck nodes Overall: posterior cervical chain benign 11/18/2014 None Full Exam - General 1994 Lymphatic neck nodes Overall: anterior cervical chain benign 11/18/2014 None Full Exam - General 1994 Abdomen abdominal exam Overall: no tenderness 11/18/2014 None Full Exam - General 1994 Abdomen abdominal exam Overall: normal bowel sounds 11/18/2014 None Full Exam - General 1994 Cardiovascular auscultation of heart Overall: regular rate 11/18/2014 None Full Exam - General 1994 Cardiovascular auscultation of heart Overall: normal heart sounds 11/18/2014 None Full Exam - General 1994 Cardiovascular auscultation of heart Overall: no murmurs 11/18/2014 None Full Exam - General 1994 Cardiovascular extremities Edema present: pitting 11/18/2014 None Full Exam - General 1994 Cardiovascular extremities Edema present: severity : 1+ 11/18/2014 None Full Exam - General 1994 Cardiovascular extremities Edema present: bilateral 11/18/2014 None Full Exam - General 1994 Cardiovascular extremities Edema present: to leg 11/18/2014 None Full Exam - General 1994 Respiratory respiratory effort/rhythm Overall: normal rate 11/18/2014 None Full Exam - General 1994 Respiratory auscultation Overall: breath sounds clear bilaterally 11/18/2014 None Full Exam - General 1994 Neck inspection of neck Overall: normal size 11/18/2014 None Full Exam - General 1994 Neck inspection of neck Overall: normal appearance 11/18/2014 None Full Exam - General 1994 Constitutional general appearance Development: well developed 11/18/2014 None Full Exam - General 1994 Constitutional general appearance Overall: in no acute distress 11/18/2014 None Full Exam - General 1994 Constitutional general appearance Overall: well developed 10/23/2014 None Full Exam - General 1994 Constitutional general appearance Overall: in no acute distress 10/23/2014 None Full Exam - General 1994 Constitutional general appearance Overall: well nourished 10/23/2014 None Full Exam - General 1994 Eyes conjunctiva/eyelids Overall: conjunctiva clear 10/23/2014 None Full Exam - General 1994 Eyes pupils and irises Overall: pupils equal, round, reactive to light and accomodation 10/23/2014 None Full Exam - General 1994 Eyes pupils and irises Pupil: round 10/23/2014 None Full Exam - General 1994 Eyes pupils and irises Pupil: reactive to light 10/23/2014 None Full Exam - General 1994 Ears/Nose/Throat otoscopic exam Overall: external auditory canals clear 10/23/2014 None Full Exam - General 1994 Ears/Nose/Throat otoscopic exam Overall: tympanic membranes clear 10/23/2014 None Full Exam - General 1994 Ears/Nose/Throat oral cavity/pharynx/larynx Overall: oral mucosa clear 10/23/2014 None Full Exam - General 1994 Ears/Nose/Throat oral cavity/pharynx/larynx Overall: oropharyngeal mucosa clear 10/23/2014 None Full Exam - General 1994 Ears/Nose/Throat oral cavity/pharynx/larynx Overall: no masses 10/23/2014 None Full Exam - General 1994 Respiratory auscultation Overall: breath sounds clear bilaterally 10/23/2014 None Full Exam - General 1994 Respiratory respiratory effort/rhythm Overall: no retractions 10/23/2014 None Full Exam - General 1994 Respiratory respiratory effort/rhythm Overall: normal rate 10/23/2014 None Full Exam - General 1994 Cardiovascular extremities Edema present: pitting 10/23/2014 None Full Exam - General 1994 Cardiovascular extremities Edema present: severity 1+ - 4+: 2 10/23/2014 None Full Exam - General 1994 Cardiovascular auscultation of heart Overall: regular rate 10/23/2014 None Full Exam - General 1994 Cardiovascular auscultation of heart Overall: normal heart sounds 10/23/2014 None Full Exam - General 1994 Cardiovascular auscultation of heart Overall: no murmurs 10/23/2014 None Full Exam - General 1994 Abdomen abdominal exam Overall: no tenderness 10/23/2014 None Full Exam - General 1994 Abdomen abdominal exam Overall: normal bowel sounds 10/23/2014 None Full Exam - General 1994 Musculoskeletal head and neck Overall: head atraumatic 10/23/2014 None Full Exam - General 1994 Musculoskeletal head and neck Overall: cervical spine benign 10/23/2014 None Full Exam - General 1994 Neurologic gait Overall: no ataxia, no unsteadiness 10/23/2014 None Full Exam - General 1994 Psychiatric orientation/consciousness Overall: oriented to person, place and time 10/23/2014 None Full Exam - General 1994 Psychiatric mood and affect Overall: normal mood and affect 10/23/2014 None Full Exam - General 1994 Integument inspection of skin Location: left arm 10/23/2014 None Full Exam - General 1994 Integument inspection of skin Rash/Lesions: laceration 10/23/2014 Healing dog bite with mod erate red crustation. surrounding tissue erythematous. Full Exam - General 1994 Lymphatic neck nodes Overall: anterior cervical chain benign 10/23/2014 None Full Exam - General 1994 Lymphatic neck nodes Overall: posterior cervical chain benign 10/23/2014 None Full Exam - General 1994 Constitutional general appearance Overall: well developed 10/02/2014 None Full Exam - General 1994 Constitutional general appearance Overall: in no acute distress 10/02/2014 None Full Exam - General 1994 Constitutional general appearance Overall: well nourished 10/02/2014 None Full Exam - General 1994 Eyes conjunctiva/eyelids Overall: conjunctiva clear 10/02/2014 None Full Exam - General 1994 Eyes pupils and irises Overall: pupils equal, round, reactive to light and accomodation 10/02/2014 None Full Exam - General 1994 Eyes pupils and irises Pupil: round 10/02/2014 None Full Exam - General 1994 Eyes pupils and irises Pupil: reactive to light 10/02/2014 None Full Exam - General 1994 Ears/Nose/Throat otoscopic exam Overall: external auditory canals clear 10/02/2014 None Full Exam - General 1994 Ears/Nose/Throat otoscopic exam Overall: tympanic membranes clear 10/02/2014 None Full Exam - General 1994 Ears/Nose/Throat oral cavity/pharynx/larynx Overall: oral mucosa clear 10/02/2014 None Full Exam - General 1994 Ears/Nose/Throat oral cavity/pharynx/larynx Overall: oropharyngeal mucosa clear 10/02/2014 None Full Exam - General 1994 Ears/Nose/Throat oral cavity/pharynx/larynx Overall: no masses 10/02/2014 None Full Exam - General 1994 Respiratory auscultation Overall: breath sounds clear bilaterally 10/02/2014 None Full Exam - General 1994 Respiratory respiratory effort/rhythm Overall: no retractions 10/02/2014 None Full Exam - General 1994 Respiratory respiratory effort/rhythm Overall: normal rate 10/02/2014 None Full Exam - General 1994 Cardiovascular extremities Edema present: pitting 10/02/2014 None Full Exam - General 1994 Cardiovascular extremities Edema present: severity 1+ - 4+: 2 10/02/2014 None Full Exam - General 1994 Cardiovascular auscultation of heart Overall: regular rate 10/02/2014 None Full Exam - General 1994 Cardiovascular auscultation of heart Overall: normal heart sounds 10/02/2014 None Full Exam - General 1994 Cardiovascular auscultation of heart Overall: no murmurs 10/02/2014 None Full Exam - General 1994 Abdomen abdominal exam Overall: no tenderness 10/02/2014 None Full Exam - General 1994 Abdomen abdominal exam Overall: normal bowel sounds 10/02/2014 None Full Exam - General 1994 Musculoskeletal head and neck Overall: head atraumatic 10/02/2014 None Full Exam - General 1994 Musculoskeletal head and neck Overall: cervical spine benign 10/02/2014 None Full Exam - General 1994 Neurologic gait Overall: no ataxia, no unsteadiness 10/02/2014 None Full Exam - General 1994 Psychiatric orientation/consciousness Overall: oriented to person, place and time 10/02/2014 None Full Exam - General 1994 Psychiatric mood and affect Mood: flat 10/02/2014 None Full Exam - General 1994 Psychiatric mood and affect Affect: mood congruent 10/02/2014 None Full Exam - General 1994 Constitutional general appearance Overall: well developed 09/23/2014 None Full Exam - General 1994 Constitutional general appearance Overall: in no acute distress 09/23/2014 None Full Exam - General 1994 Constitutional general appearance Overall: well nourished 09/23/2014 None Full Exam - General 1994 Eyes pupils and irises Overall: pupils equal, round, reactive to light and accomodation 09/23/2014 None Full Exam - General 1994 Eyes pupils and irises Pupil: round 09/23/2014 None Full Exam - General 1994 Eyes pupils and irises Pupil: reactive to light 09/23/2014 None Full Exam - General 1994 Ears/Nose/Throat otoscopic exam Overall: external auditory canals clear 09/23/2014 None Full Exam - General 1994 Ears/Nose/Throat otoscopic exam Overall: tympanic membranes clear 09/23/2014 None Full Exam - General 1994 Ears/Nose/Throat oral cavity/pharynx/larynx Overall: oral mucosa clear 09/23/2014 None Full Exam - General 1994 Ears/Nose/Throat oral cavity/pharynx/larynx Overall: oropharyngeal mucosa clear 09/23/2014 None Full Exam - General 1994 Ears/Nose/Throat oral cavity/pharynx/larynx Overall: no masses 09/23/2014 None Full Exam - General 1994 Respiratory auscultation Overall: breath sounds clear bilaterally 09/23/2014 None Full Exam - General 1994 Respiratory respiratory effort/rhythm Overall: no retractions 09/23/2014 None Full Exam - General 1994 Respiratory respiratory effort/rhythm Overall: normal rate 09/23/2014 None Full Exam - General 1994 Cardiovascular extremities Edema present: pitting 09/23/2014 None Full Exam - General 1994 Cardiovascular extremities Edema present: severity 1+ - 4+: 2 09/23/2014 None Full Exam - General 1994 Cardiovascular auscultation of heart Overall: regular rate 09/23/2014 None Full Exam - General 1994 Cardiovascular auscultation of heart Overall: normal heart sounds 09/23/2014 None Full Exam - General 1994 Cardiovascular auscultation of heart Overall: no murmurs 09/23/2014 None Full Exam - General 1994 Abdomen abdominal exam Overall: no tenderness 09/23/2014 None Full Exam - General 1994 Abdomen abdominal exam Overall: normal bowel sounds 09/23/2014 None Full Exam - General 1994 Integument inspection of skin Location: left leg 09/23/2014 None Full Exam - General 1994 Integument inspection of skin Pigmentation: hemosideran pigment changes 09/23/2014 None Full Exam - General 1994 Neurologic gait Overall: no ataxia, no unsteadiness 09/23/2014 None Full Exam - General 1994 Psychiatric orientation/consciousness Overall: oriented to person, place and time 09/23/2014 None Full Exam - General 1994 Psychiatric mood and affect Affect: mood congruent 09/23/2014 None Full Exam - General 1994 Psychiatric mood and affect Mood: flat 09/23/2014 None Full Exam - General 1994 Musculoskeletal head and neck Overall: head atraumatic 09/23/2014 None Full Exam - General 1994 Musculoskeletal head and neck Overall: cervical spine benign 09/23/2014 None Full Exam - General 1994 Eyes conjunctiva/eyelids Overall: conjunctiva clear 09/23/2014 None Full Exam - ENT Constitutional general appearance Overall: well nourished 07/08/2014 None Full Exam - ENT Constitutional general appearance Overall: well developed 07/08/2014 None Full Exam - ENT Constitutional general appearance Overall: in no acute distress 07/08/2014 None Full Exam - ENT Ears/Nose/Throat otoscopic exam Overall: external auditory canals normal 07/08/2014 None Full Exam - ENT Ears/Nose/Throat otoscopic exam Overall: tympanic membranes normal 07/08/2014 None Full Exam - ENT Ears/Nose/Throat oropharynx Overall: oral mucosa clear 07/08/2014 None Full Exam - ENT Face and Head palpation Overall: no sinus tenderness 07/08/2014 None Full Exam - ENT Respiratory inspection Overall: no retractions 07/08/2014 None Full Exam - ENT Respiratory inspection Overall: normal rate None Full Exam - ENT Respiratory auscultation Overall: breath sounds clear bilater ally 07/08/2014 None Full Exam - ENT Cardiovascular auscultation of heart Overall: regular rate 07/08/2014 None Full Exam - ENT Cardiovascular auscultation of heart Overall: normal heart sounds 07/08/2014 None Full Exam - ENT Lymphatic palpation of lymph nodes Overall: anterior cervical chain benign 07/08/2014 None Full Exam - ENT Lymphatic palpation of lymph nodes Overall: posterior cervical chain benign 07/08/2014 None Full Exam - ENT Neurologic orientation Overall: oriented to person, place a nd time 07/08/2014 None Full Exam - ENT Cardiovascular examination of vasculature Edema: pitting 07/08/2014 trace to ankles Full Exam - General 1994 Constitutional general appearance Overall: well developed 05/31/2014 None Full Exam - General 1994 Constitutional general appearance Overall: in no acute distress 05/31/2014 None Full Exam - General 1994 Constitutional general appearance Overall: well nourished 05/31/2014 None Full Exam - General 1994 Eyes pupils and irises Overall: pupils equal, round, reactive to light and accomodation 05/31/2014 None Full Exam - General 1994 Eyes pupils and irises Pupil: round 05/31/2014 None Full Exam - General 1994 Eyes pupils and irises Pupil: reactive to light 05/31/2014 None Full Exam - General 1994 Ears/Nose/Throat otoscopic exam Overall: external auditory canals clear 05/31/2014 None Full Exam - General 1994 Ears/Nose/Throat otoscopic exam Overall: tympanic membranes clear 05/31/2014 None Full Exam - General 1994 Ears/Nose/Throat oral cavity/pharynx/larynx Overall: oral mucosa clear 05/31/2014 None Full Exam - General 1994 Ears/Nose/Throat oral cavity/pharynx/larynx Overall: oropharyngeal mucosa clear 05/31/2014 None Full Exam - General 1994 Ears/Nose/Throat oral cavity/pharynx/larynx Overall: no masses 05/31/2014 None Full Exam - General 1994 Respiratory auscultation Overall: breath sounds clear bilaterally 05/31/2014 None Full Exam - General 1994 Respiratory respiratory effort/rhythm Overall: no retractions 05/31/2014 None Full Exam - General 1994 Respiratory respiratory effort/rhythm Overall: normal rate 05/31/2014 None Full Exam - General 1994 Cardiovascular extremities Edema present: pitting 05/31/2014 None Full Exam - General 1994 Cardiovascular extremities Edema present: severity 1+ - 4+: 2 05/31/2014 None Full Exam - General 1994 Cardiovascular auscultation of heart Overall: regular rate 05/31/2014 None Full Exam - General 1994 Cardiovascular auscultation of heart Overall: normal heart sounds 05/31/2014 None Full Exam - General 1994 Cardiovascular auscultation of heart Overall: no murmurs 05/31/2014 None Full Exam - General 1994 Abdomen abdominal exam Overall: no tenderness 05/31/2014 None Full Exam - General 1994 Abdomen abdominal exam Overall: normal bowel sounds 05/31/2014 None Full Exam - General 1994 Integument inspection of skin Location: left leg 05/31/2014 None Full Exam - General 1994 Integument inspection of skin Pigmentation: hemosideran pigment changes 05/31/2014 None Full Exam - General 1994 Neurologic gait Overall: no ataxia, no unsteadiness 05/31/2014 None Full Exam - General 1994 Psychiatric orientation/consciousness Overall: oriented to person, place and time 05/31/2014 None Full Exam - General 1994 Psychiatric mood and affect Mood: angry 05/31/2014 None Full Exam - General 1994 Psychiatric mood and affect Affect: mood congruent 05/31/2014 None Full Exam - General 1994 Constitutional general appearance Overall: well developed 04/18/2014 None Full Exam - General 1994 Constitutional general appearance Overall: in no acute distress 04/18/2014 None Full Exam - General 1994 Constitutional general appearance Overall: well nourished 04/18/2014 None Full Exam - General 1994 Eyes pupils and irises Overall: pupils equal, round, reactive to light and accomodation 04/18/2014 None Full Exam - General 1994 Eyes pupils and irises Pupil: round 04/18/2014 None Full Exam - General 1994 Eyes pupils and irises Pupil: reactive to light 04/18/2014 None Full Exam - General 1994 Ears/Nose/Throat otoscopic exam Overall: external auditory canals clear 04/18/2014 None Full Exam - General 1994 Ears/Nose/Throat otoscopic exam Overall: tympanic membranes clear 04/18/2014 None Full Exam - General 1994 Ears/Nose/Throat oral cavity/pharynx/larynx Overall: oral mucosa clear 04/18/2014 None Full Exam - General 1994 Ears/Nose/Throat oral cavity/pharynx/larynx Overall: oropharyngeal mucosa clear 04/18/2014 None Full Exam - General 1994 Ears/Nose/Throat oral cavity/pharynx/larynx Overall: no masses 04/18/2014 None Full Exam - General 1994 Respiratory auscultation Overall: breath sounds clear bilaterally 04/18/2014 None Full Exam - General 1994 Respiratory respiratory effort/rhythm Overall: no retractions 04/18/2014 None Full Exam - General 1994 Respiratory respiratory effort/rhythm Overall: normal rate 04/18/2014 None Full Exam - General 1994 Cardiovascular extremities Edema present: pitting 04/18/2014 None Full Exam - General 1994 Cardiovascular extremities Edema present: severity 1+ - 4+: 2 04/18/2014 None Full Exam - General 1994 Cardiovascular auscultation of heart Overall: regular rate 04/18/2014 None Full Exam - General 1994 Cardiovascular auscultation of heart Overall: normal heart sounds 04/18/2014 None Full Exam - General 1994 Cardiovascular auscultation of heart Overall: no murmurs 04/18/2014 None Full Exam - General 1994 Abdomen abdominal exam Overall: no tenderness 04/18/2014 None Full Exam - General 1994 Abdomen abdominal exam Overall: normal bowel sounds 04/18/2014 None Full Exam - General 1994 Musculoskeletal spine, ribs and pelvis Posture: kyphosis 04/18/2014 None Full Exam - General 1994 Musculoskeletal spine, ribs and pelvis Spine: decreased flexion 04/18/2014 None Full Exam - General 1994 Musculoskeletal spine, ribs and pelvis Spine: decreased extension 04/18/2014 tender at shoulder blades/upper thoracic region - between spine and scapula - muscles tight with trigger points identified. Full Exam - General 1994 Integument inspection of skin Location: right arm 04/18/2014 scabbed lesion - healing - recommended pt to use neosporin over the site, keep covered during the day Full Exam - General 1994 Integument inspection of skin Location: left leg 04/18/2014 None Full Exam - General 1994 Integument inspection of skin Pigmentation: hemosideran pigment changes 04/18/2014 None Full Exam - General 1994 Neurologic gait Overall: no ataxia, no unsteadiness 04/18/2014 None Full Exam - General 1994 Psychiatric orientation/consciousness Overall: oriented to person, place and time 04/18/2014 None Full Exam - General 1994 Psychiatric mood and affect Overall: normal mood and affect 04/18/2014 None Full Exam - General 1994 Constitutional general appearance Overall: well developed 03/05/2014 None Full Exam - General 1994 Constitutional general appearance Overall: in no acute distress 03/05/2014 None Full Exam - General 1994 Constitutional general appearance Overall: well nourished 03/05/2014 None Full Exam - General 1994 Eyes pupils and irises Overall: pupils equal, round, reactive to light and accomodation 03/05/2014 None Full Exam - General 1994 Eyes pupils and irises Pupil: round 03/05/2014 None Full Exam - General 1994 Eyes pupils and irises Pupil: reactive to light 03/05/2014 None Full Exam - General 1994 Ears/Nose/Throat otoscopic exam Overall: external auditory canals clear 03/05/2014 None Full Exam - General 1994 Ears/Nose/Throat otoscopic exam Overall: tympanic membranes clear 03/05/2014 None Full Exam - General 1994 Ears/Nose/Throat oral cavity/pharynx/larynx Overall: oral mucosa clear 03/05/2014 None Full Exam - General 1994 Ears/Nose/Throat oral cavity/pharynx/larynx Overall: oropharyngeal mucosa clear 03/05/2014 None Full Exam - General 1994 Ears/Nose/Throat oral cavity/pharynx/larynx Overall: no masses 03/05/2014 None Full Exam - General 1994 Respiratory auscultation Overall: breath sounds clear bilaterally 03/05/2014 None Full Exam - General 1994 Respiratory respiratory effort/rhythm Overall: no retractions 03/05/2014 None Full Exam - General 1994 Respiratory respiratory effort/rhythm Overall: normal rate 03/05/2014 None Full Exam - General 1994 Cardiovascular extremities Edema present: pitting 03/05/2014 None Full Exam - General 1994 Cardiovascular extremities Edema present: severity 1+ - 4+: 2 03/05/2014 None Full Exam - General 1994 Cardiovascular auscultation of heart Overall: regular rate 03/05/2014 None Full Exam - General 1994 Cardiovascular auscultation of heart Overall: normal heart sounds 03/05/2014 None Full Exam - General 1994 Cardiovascular auscultation of heart Overall: no murmurs 03/05/2014 None Full Exam - General 1994 Abdomen abdominal exam Overall: no tenderness 03/05/2014 None Full Exam - General 1994 Abdomen abdominal exam Overall: normal bowel sounds 03/05/2014 None Full Exam - General 1994 Integument inspection of skin Location: left leg 03/05/2014 None Full Exam - General 1994 Integument inspection of skin Pigmentation: hemosideran pigment changes 03/05/2014 None Full Exam - General 1994 Neurologic gait Overall: no ataxia, no unsteadiness 03/05/2014 None Full Exam - General 1994 Psychiatric orientation/consciousness Overall: oriented to person, place and time 03/05/2014 None Full Exam - General 1994 Psychiatric mood and affect Overall: normal mood and affect 03/05/2014 None Full Exam - General 1994 Integument inspection of skin Location: right arm 03/05/2014 scabbed lesion - healing - recommended pt to use neosporin over the site, keep covered during the day Full Exam - General 1994 Musculoskeletal spine, ribs and pelvis Posture: kyphosis 03/05/2014 None Full Exam - General 1994 Musculoskeletal spine, ribs and pelvis Spine: decreased flexion 03/05/2014 None Full Exam - General 1994 Musculoskeletal spine, ribs and pelvis Spine: decreased extension 03/05/2014 tender at shoulder blades/upper thoracic region - between spine and scapula - muscles tight with trigger points identified. Full Exam - General 1994 Constitutional general appearance Overall: well developed 01/29/2014 None Full Exam - General 1994 Constitutional general appearance Overall: in no acute distress 01/29/2014 None Full Exam - General 1994 Constitutional general appearance Overall: well nourished 01/29/2014 None Full Exam - General 1994 Eyes pupils and irises Overall: pupils equal, round, reactive to light and accomodation 01/29/2014 None Full Exam - General 1994 Eyes pupils and irises Pupil: round 01/29/2014 None Full Exam - General 1994 Eyes pupils and irises Pupil: reactive to light 01/29/2014 None Full Exam - General 1994 Ears/Nose/Throat otoscopic exam Overall: external auditory canals clear 01/29/2014 None Full Exam - General 1994 Ears/Nose/Throat otoscopic exam Overall: tympanic membranes clear 01/29/2014 None Full Exam - General 1995 Ears/Nose/Throat oral cavity/pharynx/larynx Overall: oral mucosa clear 01/29/2014 None Full Exam - General 1994 Ears/Nose/Throat oral cavity/pharynx/larynx Overall: oropharyngeal mucosa clear 01/29/2014 None Full Exam - General 1994 Ears/Nose/Throat oral cavity/pharynx/larynx Overall: no masses 01/29/2014 None Full Exam - General 1994 Respiratory auscultation Overall: breath sounds clear bilaterally 01/29/2014 None Full Exam - General 1994 Respiratory respiratory effort/rhythm Overall: no retractions 01/29/2014 None Full Exam - General 1994 Respiratory respiratory effort/rhythm Overall: normal rate 01/29/2014 None Full Exam - General 1994 Cardiovascular extremities Edema present: pitting 01/29/2014 None Full Exam - General 1994 Cardiovascular extremities Edema present: severity 1+ - 4+: 2 01/29/2014 None Full Exam - General 1994 Cardiovascular auscultation of heart Overall: regular rate 01/29/2014 None Full Exam - General 1994 Cardiovascular auscultation of heart Overall: normal heart sounds 01/29/2014 None Full Exam - General 1994 Cardiovascular auscultation of heart Overall: no murmurs 01/29/2014 None Full Exam - General 1994 Abdomen abdominal exam Overall: no tenderness 01/29/2014 None Full Exam - General 1994 Abdomen abdominal exam Overall: normal bowel sounds 01/29/2014 None Full Exam - General 1994 Integument inspection of skin Location: left leg 01/29/2014 None Full Exam - General 1994 Integument inspection of skin Pigmentation: hemosideran pigment changes 01/29/2014 None Full Exam - General 1994 Neurologic gait Overall: no ataxia, no unsteadiness 01/29/2014 None Full Exam - General 1994 Psychiatric orientation/consciousness Overall: oriented to person, place and time 01/29/2014 None Full Exam - General 1994 Psychiatric mood and affect Overall: normal mood and affect 01/29/2014 None Full Exam - General 1994 Constitutional general appearance Overall: well developed 10/23/2013 None Full Exam - General 1994 Constitutional general appearance Overall: in no acute distress 10/23/2013 None Full Exam - General 1994 Constitutional general appearance Overall: well nourished 10/23/2013 None Full Exam - General 1994 Eyes pupils and irises Overall: pupils equal, round, reactive to light and accomodation 10/23/2013 None Full Exam - General 1994 Respiratory auscultation Overall: breath sounds clear bilaterally 10/23/2013 None Full Exam - General 1994 Respiratory respiratory effort/rhythm Overall: no retractions 10/23/2013 None Full Exam - General 1994 Respiratory respiratory effort/rhythm Overall: normal rate 10/23/2013 None Full Exam - General 1994 Cardiovascular extremities Edema present: pitting 10/23/2013 None Full Exam - General 1994 Cardiovascular extremities Edema present: severity 1+ - 4+: 2 10/23/2013 None Full Exam - General 1994 Cardiovascular auscultation of heart Overall: regular rate 10/23/2013 None Full Exam - General 1994 Cardiovascular auscultation of heart Overall: normal heart sounds 10/23/2013 None Full Exam - General 1994 Cardiovascular auscultation of heart Overall: no murmurs 10/23/2013 None Full Exam - General 1994 Musculoskeletal lower extremity Inspection - lower leg: swelling 10/23/2013 None Full Exam - General 1994 Musculoskeletal lower extremity Palpation - lower leg: normal on palpation 10/23/2013 None Full Exam - General 1994 Musculoskeletal lower extremity Muscle Strength/Tone - lower leg: calf: normal bulk 10/23/2013 None Full Exam - General 1994 Musculoskeletal lower extremity Inspection - ankle: swelling diffusely 10/23/2013 None Full Exam - General 1994 Musculoskeletal lower extremity Palpation - ankle: a normal exam 10/23/2013 None Full Exam - General 1994 Musculoskeletal lower extremity ROM - ankle: a normal exam 10/23/2013 None Full Exam - General 1994 Musculoskeletal lower extremity Stability - ankle: a normal exam 10/23/2013 None Full Exam - General 1994 Musculoskeletal lower extremity Muscle Strength/Tone - ankle: a normal exam 10/23/2013 None Full Exam - General 1994 Integument inspection of skin Location: left leg 10/23/2013 None Full Exam - General 1994 Integument inspection of skin Pigmentation: hemosideran pigment changes 10/23/2013 None Full Exam - General 1994 Psychiatric orientation/consciousness Overall: oriented to person, place and time 10/23/2013 None Full Exam - General 1994 Eyes pupils and irises Pupil: round 10/23/2013 None Full Exam - General 1994 Eyes pupils and irises Pupil: reactive to light 10/23/2013 None Full Exam - General 1994 Ears/Nose/Throat otoscopic exam Overall: external auditory canals clear 10/23/2013 None Full Exam - General 1994 Ears/Nose/Throat otoscopic exam Overall: tympanic membranes clear 10/23/2013 None Full Exam - General 1994 Ears/Nose/Throat oral cavity/pharynx/larynx Overall: oral mucosa clear 10/23/2013 None Full Exam - General 1994 Ears/Nose/Throat oral cavity/pharynx/larynx Overall: oropharyngeal mucosa clear 10/23/2013 None Full Exam - General 1994 Ears/Nose/Throat oral cavity/pharynx/larynx Overall: no masses 10/23/2013 None Full Exam - General 1994 Abdomen abdominal exam Overall: no tenderness 10/23/2013 None Full Exam - General 1994 Abdomen abdominal exam Overall: normal bowel sounds 10/23/2013 None Full Exam - General 1994 Musculoskeletal head and neck Overall: head atraumatic 10/23/2013 None Full Exam - General 1994 Musculoskeletal head and neck Overall: cervical spine benign 10/23/2013 None Full Exam - General 1994 Neurologic gait Overall: no ataxia, no unsteadiness 10/23/2013 None Full Exam - General 1994 Psychiatric mood and affect Overall: normal mood and affect 10/23/2013 None Full Exam - Dermatology Constitutional general appearance Overall: well nourished 10/11/2013 None Full Exam - Dermatology Constitutional general appearance Overall: well developed 10/11/2013 None Full Exam - Dermatology Constitutional general appearance Overall: in no acute distress 10/11/2013 None Full Exam - Dermatology Constitutional general appearance Overall: of normal body habitus 10/11/2013 None Full Exam - Dermatology Constitutional general appearance Overall: well groomed 10/11/2013 None Full Exam - Dermatology Psychiatric orientation Overall: oriented to person, place and time 10/11/2013 None Full Exam - Dermatology Integument insp & palp - chest/axillae Lesion: patch 10/11/2013 None Full Exam - Dermatology Integument insp & palp - chest/axillae Distribution: localized 10/11/2013 None Full Exam - Dermatology Integument insp & palp - chest/axillae Location: on the mid chest 10/11/2013 between breasts-spreading under left and right breasts Full Exam - Dermatology Integument insp & palp - chest/axillae Color: erythematous 10/11/2013 None Full Exam - General 1994 Constitutional general appearance Overall: well developed 09/17/2013 None Full Exam - General 1994 Constitutional general appearance Overall: in no acute distress 09/17/2013 None Full Exam - General 1994 Constitutional general appearance Overall: well nourished 09/17/2013 None Full Exam - General 1994 Cardiovascular auscultation of heart Overall: regular rate 09/17/2013 None Full Exam - General 1994 Cardiovascular auscultation of heart Overall: normal heart sounds 09/17/2013 None Full Exam - General 1994 Cardiovascular auscultation of heart Overall: no murmurs 09/17/2013 None Full Exam - General 1994 Musculoskeletal lower extremity Inspection - lower leg: swelling 09/17/2013 None Full Exam - General 1994 Musculoskeletal lower extremity Palpation - lower leg: normal on palpation 09/17/2013 None Full Exam - General 1994 Musculoskeletal lower extremity Muscle Strength/Tone - lower leg: calf: normal bulk 09/17/2013 None Full Exam - General 1994 Musculoskeletal lower extremity Inspection - ankle: swelling diffusely 09/17/2013 None Full Exam - General 1994 Musculoskeletal lower extremity Palpation - ankle: a normal exam 09/17/2013 None Full Exam - General 1994 Musculoskeletal lower extremity ROM - ankle: a normal exam 09/17/2013 None Full Exam - General 1994 Musculoskeletal lower extremity Stability - ankle: a normal exam 09/17/2013 None Full Exam - General 1994 Musculoskeletal lower extremity Muscle Strength/Tone - ankle: a normal exam 09/17/2013 None Full Exam - General 1994 Integument inspection of skin Location: left leg 09/17/2013 None Full Exam - General 1994 Integument inspection of skin Pigmentation: hemosideran pigment changes 09/17/2013 None Full Exam - General 1994 Psychiatric orientation/consciousness Overall: oriented to person, place and time 09/17/2013 None Full Exam - General 1994 Eyes pupils and irises Overall: pupils equal, round, reactive to light and accomodation 09/17/2013 None Full Exam - General 1994 Respiratory respiratory effort/rhythm Overall: normal rate 09/17/2013 None Full Exam - General 1994 Respiratory respiratory effort/rhythm Overall: no retractions 09/17/2013 None Full Exam - General 1994 Respiratory auscultation Overall: breath sounds clear bilaterally 09/17/2013 None Full Exam - General 1994 Cardiovascular extremities Edema present: pitting 09/17/2013 None Full Exam - General 1994 Cardiovascular extremities Edema present: severity 1+ - 4+: 2 09/17/2013 None Full Exam - General 1994 Constitutional general appearance Overall: well developed 08/27/2013 None Full Exam - General 1994 Constitutional general appearance Overall: in no acute distress 08/27/2013 None Full Exam - General 1994 Constitutional general appearance Overall: well nourished 08/27/2013 None Full Exam - General 1994 Cardiovascular auscultation of heart Overall: regular rate 08/27/2013 None Full Exam - General 1994 Cardiovascular auscultation of heart Overall: normal heart sounds 08/27/2013 None Full Exam - General 1994 Cardiovascular auscultation of heart Overall: no murmurs 08/27/2013 None Full Exam - General 1994 Psychiatric orientation/consciousness Overall: oriented to person, place and time 08/27/2013 None Full Exam - General 1994 Musculoskeletal lower extremity Inspection - lower leg: swelling 08/27/2013 None Full Exam - General 1994 Musculoskeletal lower extremity Palpation - lower leg: normal on palpation 08/27/2013 None Full Exam - General 1994 Musculoskeletal lower extremity Muscle Strength/Tone - lower leg: calf: normal bulk 08/27/2013 None Full Exam - General 1994 Musculoskeletal lower extremity Inspection - ankle: swelling diffusely 08/27/2013 None Full Exam - General 1994 Musculoskeletal lower extremity Palpation - ankle: a normal exam 08/27/2013 None Full Exam - General 1994 Musculoskeletal lower extremity ROM - ankle: a normal exam 08/27/2013 None Full Exam - General 1994 Musculoskeletal lower extremity Stability - ankle: a normal exam 08/27/2013 None Full Exam - General 1994 Musculoskeletal lower extremity Muscle Strength/Tone - ankle: a normal exam 08/27/2013 None Full Exam - General 1994 Integument inspection of skin Location: left leg 08/27/2013 None Full Exam - General 1994 Integument inspection of skin Pigmentation: hemosideran pigment changes 08/27/2013 None Full Exam - General 1994 Constitutional general appearance Overall: well developed 08/20/2013 None Full Exam - General 1994 Constitutional general appearance Overall: in no acute distress 08/20/2013 None Full Exam - General 1994 Constitutional general appearance Overall: well nourished 08/20/2013 None Full Exam - General 1994 Eyes pupils and irises Pupil: round 08/20/2013 None Full Exam - General 1994 Eyes pupils and irises Pupil: reactive to light 08/20/2013 None Full Exam - General 1994 Ears/Nose/Throat otoscopic exam Overall: external auditory canals clear 08/20/2013 None Full Exam - General 1994 Ears/Nose/Throat otoscopic exam Overall: tympanic membranes clear 08/20/2013 None Full Exam - General 1994 Ears/Nose/Throat oral cavity/pharynx/larynx Overall: oral mucosa clear 08/20/2013 None Full Exam - General 1994 Ears/Nose/Throat oral cavity/pharynx/larynx Overall: oropharyngeal mucosa clear 08/20/2013 None Full Exam - General 1994 Ears/Nose/Throat oral cavity/pharynx/larynx Overall: no masses 08/20/2013 None Full Exam - General 1994 Respiratory auscultation Overall: breath sounds clear bilaterally 08/20/2013 None Full Exam - General 1994 Respiratory respiratory effort/rhythm Overall: no retractions 08/20/2013 None Full Exam - General 1994 Respiratory respiratory effort/rhythm Overall: normal rate 08/20/2013 None Full Exam - General 1994 Cardiovascular auscultation of heart Overall: regular rate 08/20/2013 None Full Exam - General 1994 Cardiovascular auscultation of heart Overall: normal heart sounds 08/20/2013 None Full Exam - General 1994 Cardiovascular auscultation of heart Overall: no murmurs 08/20/2013 None Full Exam - General 1994 Abdomen abdominal exam Overall: no tenderness 08/20/2013 None Full Exam - General 1994 Abdomen abdominal exam Overall: normal bowel sounds 08/20/2013 None Full Exam - General 1994 Musculoskeletal head and neck Overall: head atraumatic 08/20/2013 None Full Exam - General 1994 Musculoskeletal head and neck Overall: cervical spine benign 08/20/2013 None Full Exam - General 1994 Neurologic gait Overall: no ataxia, no unsteadiness 08/20/2013 None Full Exam - General 1994 Psychiatric orientation/consciousness Overall: oriented to person, place and time 08/20/2013 None Full Exam - General 1994 Psychiatric mood and affect Overall: normal mood and affect 08/20/2013 None Full Exam - General 1994 Constitutional general appearance Overall: well developed 07/10/2013 None Full Exam - General 1994 Constitutional general appearance Overall: in no acute distress 07/10/2013 None Full Exam - General 1994 Constitutional general appearance Overall: well nourished 07/10/2013 None Full Exam - General 1994 Eyes pupils and irises Pupil: round 07/10/2013 None Full Exam - General 1994 Eyes pupils and irises Pupil: reactive to light 07/10/2013 None Full Exam - General 1994 Ears/Nose/Throat otoscopic exam Overall: external auditory canals clear 07/10/2013 None Full Exam - General 1994 Ears/Nose/Throat otoscopic exam Overall: tympanic membranes clear 07/10/2013 None Full Exam - General 1995 Ears/Nose/Throat oral cavity/pharynx/larynx Overall: oral mucosa clear 07/10/2013 None Full Exam - General 1995 Ears/Nose/Throat oral cavity/pharynx/larynx Overall: oropharyngeal mucosa clear 07/10/2013 None Full Exam - General 1995 Ears/Nose/Throat oral cavity/pharynx/larynx Overall: no masses 07/10/2013 None Full Exam - General 1994 Respiratory auscultation Overall: breath sounds clear bilaterally 07/10/2013 None Full Exam - General 1994 Respiratory respiratory effort/rhythm Overall: no retractions 07/10/2013 None Full Exam - General 1994 Respiratory respiratory effort/rhythm Overall: normal rate 07/10/2013 None Full Exam - General 1994 Cardiovascular auscultation of heart Overall: regular rate 07/10/2013 None Full Exam - General 1994 Cardiovascular auscultation of heart Overall: normal heart sounds 07/10/2013 None Full Exam - General 1994 Cardiovascular auscultation of heart Overall: no murmurs 07/10/2013 None Full Exam - General 1994 Abdomen abdominal exam Overall: no tenderness 07/10/2013 None Full Exam - General 1994 Abdomen abdominal exam Overall: normal bowel sounds 07/10/2013 None Full Exam - General 1994 Musculoskeletal head and neck Overall: head atraumatic 07/10/2013 None Full Exam - General 1994 Musculoskeletal head and neck Overall: cervical spine benign 07/10/2013 None Full Exam - General 1994 Neurologic gait Overall: no ataxia, no unsteadiness 07/10/2013 None Full Exam - General 1994 Psychiatric orientation/consciousness Overall: oriented to person, place and time 07/10/2013 None Full Exam - General 1994 Psychiatric mood and affect Overall: normal mood and affect 07/10/2013 None Full Exam - General 1994 Abdomen abdominal exam Overall: normal bowel sounds 03/20/2013 None Full Exam - General 1994 Psychiatric orientation/consciousness Overall: oriented to person, place and time 03/20/2013 None Full Exam - General 1994 Lymphatic neck nodes Overall: anterior cervical chain benign 03/20/2013 None Full Exam - General 1994 Lymphatic neck nodes Overall: posterior cervical chain benign 03/20/2013 None Full Exam - General 1994 Eyes conjunctiva/eyelids Overall: cornea clear 03/20/2013 None Full Exam - General 1994 Ears/Nose/Throat oral cavity/pharynx/larynx Overall: oropharyngeal mucosa clear 03/20/2013 None Full Exam - General 1995 Ears/Nose/Throat oral cavity/pharynx/larynx Overall: no masses 03/20/2013 None Full Exam - General 1995 Ears/Nose/Throat oral cavity/pharynx/larynx Overall: oral mucosa clear 03/20/2013 None Full Exam - General 1995 Ears/Nose/Throat lips/teeth/gingiva Overall: benign gingiva 03/20/2013 None Full Exam - General 1995 Ears/Nose/Throat lips/teeth/gingiva Overall: no masses 03/20/2013 None Full Exam - General 1995 Ears/Nose/Throat lips/teeth/gingiva Overall: normal dentition 03/20/2013 None Full Exam - General 1995 Ears/Nose/Throat lips/teeth/gingiva Overall: benign lips 03/20/2013 None Full Exam - General 1994 Respiratory respiratory effort/rhythm Overall: normal rate 03/20/2013 None Full Exam - General 1994 Respiratory respiratory effort/rhythm Overall: no retractions 03/20/2013 None Full Exam - General 1994 Respiratory auscultation Overall: breath sounds clear bilaterally 03/20/2013 None Full Exam - General 1994 Cardiovascular auscultation of heart Overall: regular rate 03/20/2013 None Full Exam - General 1994 Cardiovascular auscultation of heart Overall: normal heart sounds 03/20/2013 None Full Exam - General 1994 Cardiovascular auscultation of heart Overall: no murmurs 03/20/2013 None Full Exam - General 1994 Abdomen abdominal exam Overall: no tenderness 03/20/2013 None Full Exam - General 1994 Constitutional general appearance Overall: well nourished 03/20/2013 None Full Exam - General 1994 Constitutional general appearance Overall: well developed 03/20/2013 None Full Exam - General 1994 Constitutional general appearance Overall: in no acute distress 03/20/2013 None Full Exam - General 1994 Eyes pupils and irises Overall: pupils equal, round, reactive to light and accomodation 03/20/2013 None Full Exam - General 1994 Eyes conjunctiva/eyelids Overall: conjunctiva clear 03/20/2013 None Full Exam - General 1994 Eyes conjunctiva/eyelids Overall: eyelids normal 03/20/2013 None Full Exam - General 1994 Constitutional general appearance Overall: well developed 03/07/2013 None Full Exam - General 1994 Constitutional general appearance Overall: in no acute distress 03/07/2013 None Full Exam - General 1994 Constitutional general appearance Overall: well nourished 03/07/2013 None Full Exam - General 1994 Eyes pupils and irises Pupil: round 03/07/2013 None Full Exam - General 1994 Eyes pupils and irises Pupil: reactive to light 03/07/2013 None Full Exam - General 1995 Ears/Nose/Throat otoscopic exam Overall: external auditory canals clear 03/07/2013 None Full Exam - General 1995 Ears/Nose/Throat otoscopic exam Overall: tympanic membranes clear 03/07/2013 None Full Exam - General 1995 Ears/Nose/Throat oral cavity/pharynx/larynx Overall: oral mucosa clear 03/07/2013 None Full Exam - General 1995 Ears/Nose/Throat oral cavity/pharynx/larynx Overall: oropharyngeal mucosa clear 03/07/2013 None Full Exam - General 1995 Ears/Nose/Throat oral cavity/pharynx/larynx Overall: no masses 03/07/2013 None Full Exam - General 1994 Respiratory auscultation Overall: breath sounds clear bilaterally 03/07/2013 None Full Exam - General 1994 Respiratory respiratory effort/rhythm Overall: no retractions 03/07/2013 None Full Exam - General 1994 Respiratory respiratory effort/rhythm Overall: normal rate 03/07/2013 None Full Exam - General 1994 Cardiovascular auscultation of heart Overall: regular rate 03/07/2013 None Full Exam - General 1994 Cardiovascular auscultation of heart Overall: normal heart sounds 03/07/2013 None Full Exam - General 1994 Cardiovascular auscultation of heart Overall: no murmurs 03/07/2013 None Full Exam - General 1994 Abdomen abdominal exam Overall: no tenderness 03/07/2013 None Full Exam - General 1994 Abdomen abdominal exam Overall: normal bowel sounds 03/07/2013 None Full Exam - General 1994 Musculoskeletal head and neck Overall: head atraumatic 03/07/2013 None Full Exam - General 1994 Musculoskeletal head and neck Overall: cervical spine benign 03/07/2013 None Full Exam - General 1994 Neurologic gait Overall: no ataxia, no unsteadiness 03/07/2013 None Full Exam - General 1994 Psychiatric orientation/consciousness Overall: oriented to person, place and time 03/07/2013 None Full Exam - General 1994 Psychiatric mood and affect Overall: normal mood and affect 03/07/2013 None Full Exam - General 1994 Constitutional general appearance Overall: well developed 01/22/2013 None Full Exam - General 1994 Constitutional general appearance Overall: in no acute distress 01/22/2013 None Full Exam - General 1995 Constitutional general appearance Overall: well nourished 01/22/2013 None Full Exam - General 1995 Eyes pupils and irises Pupil: round 01/22/2013 None Full Exam - General 1995 Eyes pupils and irises Pupil: reactive to light 01/22/2013 None Full Exam - General 1995 Ears/Nose/Throat otoscopic exam Overall: external auditory canals clear 01/22/2013 None Full Exam - General 1995 Ears/Nose/Throat otoscopic exam Overall: tympanic membranes clear 01/22/2013 None Full Exam - General 1995 Ears/Nose/Throat oral cavity/pharynx/larynx Overall: oral mucosa clear 01/22/2013 None Full Exam - General 1995 Ears/Nose/Throat oral cavity/pharynx/larynx Overall: oropharyngeal mucosa clear 01/22/2013 None Full Exam - General 1995 Ears/Nose/Throat oral cavity/pharynx/larynx Overall: no masses 01/22/2013 None Full Exam - General 1995 Respiratory auscultation Overall: breath sounds clear bilaterally 01/22/2013 None Full Exam - General 1995 Respiratory respiratory effort/rhythm Overall: no retractions 01/22/2013 None Full Exam - General 1995 Respiratory respiratory effort/rhythm Overall: normal rate 01/22/2013 None Full Exam - General 1995 Cardiovascular auscultation of heart Overall: regular rate 01/22/2013 None Full Exam - General 1995 Cardiovascular auscultation of heart Overall: normal heart sounds 01/22/2013 None Full Exam - General 1995 Cardiovascular auscultation of heart Overall: no murmurs 01/22/2013 None Full Exam - General 1995 Abdomen abdominal exam Overall: no tenderness 01/22/2013 None Full Exam - General 1994 Abdomen abdominal exam Overall: normal bowel sounds 01/22/2013 None Full Exam - General 1995 Musculoskeletal head and neck Overall: head atraumatic 01/22/2013 None Full Exam - General 1995 Musculoskeletal head and neck Overall: cervical spine benign 01/22/2013 None Full Exam - General 1994 Neurologic gait Overall: no ataxia, no unsteadiness 01/22/2013 None Full Exam - General 1994 Psychiatric orientation/consciousness Overall: oriented to person, place and time 01/22/2013 None Full Exam - General 1994 Psychiatric mood and affect Overall: normal mood and affect 01/22/2013 None Full Exam - ENT Constitutional general appearance Overall: well nourished 08/22/2012 None Full Exam - ENT Constitutional general appearance Overall: well developed 08/22/2012 None Full Exam - ENT Constitutional general appearance Overall: in no acute distress 08/22/2012 None Full Exam - ENT Ears/Nose/Throat otoscopic exam Overall: external auditory canals normal 08/22/2012 None Full Exam - ENT Ears/Nose/Throat otoscopic exam Overall: tympanic membranes normal 08/22/2012 None Full Exam - ENT Ears/Nose/Throat oropharynx Overall: oral mucosa clear 08/22/2012 None Full Exam - ENT Face and Head palpation Overall: no sinus tenderness 08/22/2012 None Full Exam - ENT Respiratory inspection Overall: no retractions 08/22/2012 None Full Exam - ENT Respiratory inspection Overall: normal rate 01/2013 None Full Exam - ENT Respiratory auscultation Overall: breath sounds clear bilater ally 08/22/2012 None Full Exam - ENT Cardiovascular auscultation of heart Overall: regular rate 08/22/2012 None Full Exam - ENT Cardiovascular auscultation of heart Overall: normal heart sounds 08/22/2012 None Full Exam - ENT Lymphatic palpation of lymph nodes Overall: anterior cervical chain benign 08/22/2012 None Full Exam - ENT Lymphatic palpation of lymph nodes Overall: posterior cervical chain benign 08/22/2012 None Full Exam - ENT Neurologic orientation Overall: oriented to person, place a nd time 08/22/2012 None Full Exam - General 1994 Constitutional general appearance Overall: well developed 08/14/2012 None Full Exam - General 1994 Constitutional general appearance Overall: in no acute distress 08/14/2012 None Full Exam - General 1994 Constitutional general appearance Overall: well nourished 08/14/2012 None Full Exam - General 1994 Eyes pupils and irises Pupil: round 08/14/2012 None Full Exam - General 1994 Eyes pupils and irises Pupil: reactive to light 08/14/2012 None Full Exam - General 1994 Ears/Nose/Throat otoscopic exam Overall: external auditory canals clear 08/14/2012 None Full Exam - General 1994 Ears/Nose/Throat otoscopic exam Overall: tympanic membranes clear 08/14/2012 None Full Exam - General 1994 Ears/Nose/Throat oral cavity/pharynx/larynx Overall: oral mucosa clear 08/14/2012 None Full Exam - General 1995 Ears/Nose/Throat oral cavity/pharynx/larynx Overall: oropharyngeal mucosa clear 08/14/2012 None Full Exam - General 1994 Ears/Nose/Throat oral cavity/pharynx/larynx Overall: no masses 08/14/2012 None Full Exam - General 1994 Respiratory auscultation Overall: breath sounds clear bilaterally 08/14/2012 None Full Exam - General 1994 Respiratory respiratory effort/rhythm Overall: no retractions 08/14/2012 None Full Exam - General 1994 Respiratory respiratory effort/rhythm Overall: normal rate 08/14/2012 None Full Exam - General 1994 Chest/Breast breast/chest inspection Overall: normal chest shape 08/14/2012 None Full Exam - General 1995 Chest/Breast breast/chest inspection Skin appearance: a normal exam 08/14/2012 None Full Exam - General 1994 Abdomen abdominal exam Overall: no tenderness 08/14/2012 None Full Exam - General 1994 Abdomen abdominal exam Overall: normal bowel sounds 08/14/2012 None Full Exam - General 1994 Musculoskeletal head and neck Overall: head atraumatic 08/14/2012 None Full Exam - General 1994 Musculoskeletal head and neck Overall: cervical spine benign 08/14/2012 None Full Exam - General 1994 Neurologic gait Overall: no ataxia, no unsteadiness 08/14/2012 None Full Exam - General 1994 Psychiatric orientation/consciousness Overall: oriented to person, place and time 08/14/2012 None Full Exam - General 1994 Psychiatric mood and affect Overall: normal mood and affect 08/14/2012 None Full Exam - General 1994 Cardiovascular auscultation of heart Overall: regular rate 08/14/2012 None Full Exam - General 1994 Cardiovascular auscultation of heart Overall: normal heart sounds 08/14/2012 None Full Exam - General 1994 Cardiovascular auscultation of heart Overall: no murmurs 08/14/2012 None Full Exam - General 1994 Chest/Breast breast and axillae palpation Nipple: non-tender 08/14/2012 None Full Exam - General 1994 Chest/Breast breast and axillae palpation Nipple: no discharge 08/14/2012 None Full Exam - General 1994 Chest/Breast breast and axillae palpation Axillae: no mass 08/14/2012 None Full Exam - General 1994 Chest/Breast breast and axillae palpation Upper inner quadrant: no mass 08/14/2012 None Full Exam - General 1994 Chest/Breast breast and axillae palpation Upper outer quadrant: no mass 08/14/2012 None Full Exam - General 1994 Chest/Breast breast and axillae palpation Lower inner quadrant: no mass 08/14/2012 None Full Exam - General 1994 Chest/Breast breast and axillae palpation Lower inner quadrant: non-tender 08/14/2012 No ne Full Exam - General 1994 Chest/Breast breast and axillae palpation Lower inner quadrant: tender 08/14/2012 over t eh 8 o clock position Full Exam - General 1994 Chest/Breast breast and axillae palpation Lower inner quadrant: soft 08/14/2012 None Full Exam - ENT Constitutional general appearance Overall: well nourished 05/22/2012 None Full Exam - ENT Constitutional general appearance Overall: well developed 05/22/2012 None Full Exam - ENT Constitutional general appearance Overall: in no acute distress 05/22/2012 None Full Exam - ENT Neurologic orientation Overall: oriented to person, place a nd time 05/22/2012 None Full Exam - ENT Lymphatic palpation of lymph nodes Overall: anterior cervical chain benign 05/22/2012 None Full Exam - ENT Lymphatic palpation of lymph nodes Overall: posterior cervical chain benign 05/22/2012 None Full Exam - ENT Cardiovascular auscultation of heart Overall: regular rate 05/22/2012 None Full Exam - ENT Cardiovascular auscultation of heart Overall: normal heart sounds 05/22/2012 None Full Exam - ENT Respiratory auscultation Overall: breath sounds clear bilater ally 05/22/2012 None Full Exam - ENT Respiratory inspection Overall: no retractions 05/22/2012 None Full Exam - ENT Respiratory inspection Overall: normal rate 11/2012 None Full Exam - ENT Face and Head palpation Overall: no sinus tenderness 05/22/2012 None Full Exam - ENT Ears/Nose/Throat otoscopic exam Overall: external auditory canals normal 05/22/2012 None Full Exam - ENT Ears/Nose/Throat otoscopic exam Overall: tympanic membranes normal 05/22/2012 None Full Exam - ENT Ears/Nose/Throat oropharynx Overall: oral mucosa clear 05/22/2012 None Full Exam - General 1994 Constitutional general appearance Overall: well nourished 04/17/2012 None Full Exam - General 1994 Constitutional general appearance Overall: well developed 04/17/2012 None Full Exam - General 1994 Constitutional general appearance Overall: in no acute distress 04/17/2012 None Full Exam - General 1994 Ears/Nose/Throat otoscopic exam Overall: external auditory canals clear 04/17/2012 None Full Exam - General 1994 Ears/Nose/Throat otoscopic exam Overall: tympanic membranes clear 04/17/2012 None Full Exam - General 1994 Ears/Nose/Throat oral cavity/pharynx/larynx Overall: oral mucosa clear 04/17/2012 None Full Exam - General 1995 Ears/Nose/Throat oral cavity/pharynx/larynx Overall: oropharyngeal mucosa clear 04/17/2012 None Full Exam - General 1994 Ears/Nose/Throat oral cavity/pharynx/larynx Overall: no masses 04/17/2012 None Full Exam - General 1994 Respiratory auscultation Overall: breath sounds clear bilaterally 04/17/2012 None Full Exam - General 1994 Respiratory respiratory effort/rhythm Overall: no retractions 04/17/2012 None Full Exam - General 1994 Respiratory respiratory effort/rhythm Overall: normal rate 04/17/2012 None Full Exam - General 1994 Cardiovascular auscultation of heart Overall: regular rate 04/17/2012 None Full Exam - General 1994 Cardiovascular auscultation of heart Overall: normal heart sounds 04/17/2012 None Full Exam - General 1994 Cardiovascular auscultation of heart Overall: no murmurs 04/17/2012 None Full Exam - General 1994 Chest/Breast breast and axillae palpation Nipple: non-tender 04/17/2012 None Full Exam - General 1994 Chest/Breast breast and axillae palpation Nipple: no discharge 04/17/2012 None Full Exam - General 1994 Chest/Breast breast and axillae palpation Axillae: no mass 04/17/2012 None Full Exam - General 1994 Chest/Breast breast and axillae palpation Upper inner quadrant: no mass 04/17/2012 None Full Exam - General 1994 Chest/Breast breast and axillae palpation Upper outer quadrant: no mass 04/17/2012 None Full Exam - General 1994 Chest/Breast breast and axillae palpation Lower inner quadrant: no mass 04/17/2012 None Full Exam - General 1994 Chest/Breast breast and axillae palpation Lower inner quadrant: non-tender 04/17/2012 No ne Full Exam - General 1994 Chest/Breast breast and axillae palpation Lower inner quadrant: tender 04/17/2012 over t eh 8 o clock position Full Exam - General 1994 Chest/Breast breast and axillae palpation Lower inner quadrant: soft 04/17/2012 None Full Exam - General 1994 Chest/Breast breast/chest inspection Overall: normal chest shape 04/17/2012 None Full Exam - General 1994 Chest/Breast breast/chest inspection Skin appearance: a normal exam 04/17/2012 None Full Exam - General 1994 Abdomen abdominal exam Overall: no tenderness 04/17/2012 None Full Exam - General 1994 Abdomen abdominal exam Overall: normal bowel sounds 04/17/2012 None Full Exam - General 1994 Musculoskeletal digits and nails DIPs: fifth 04/17/2012 None Full Exam - General 1994 Musculoskeletal digits and nails DIPs: nodule 04/17/2012 None Full Exam - General 1994 Musculoskeletal digits and nails DIPs: bony enlargement 04/17/2012 None Full Exam - General 1994 Neurologic gait Overall: no ataxia, no unsteadiness 04/17/2012 None Full Exam - General 1994 Psychiatric orientation/consciousness Overall: oriented to person, place and time 04/17/2012 None Full Exam - General 1994 Psychiatric mood and affect Overall: normal mood and affect 04/17/2012 None Full Exam - General 1994 Chest/Breast breast and axillae palpation Lower inner quadrant: soft 12/01/2011 None Full Exam - General 1994 Chest/Breast breast/chest inspection Overall: normal chest shape 12/01/2011 None Full Exam - General 1994 Chest/Breast breast/chest inspection Skin appearance: a normal exam 12/01/2011 None Full Exam - General 1994 Abdomen abdominal exam Overall: no tenderness 12/01/2011 None Full Exam - General 1994 Abdomen abdominal exam Overall: normal bowel sounds 12/01/2011 None Full Exam - General 1994 Neurologic gait Overall: no ataxia, no unsteadiness 12/01/2011 None Full Exam - General 1994 Psychiatric orientation/consciousness Overall: oriented to person, place and time 12/01/2011 None Full Exam - General 1994 Psychiatric mood and affect Overall: normal mood and affect 12/01/2011 None Full Exam - General 1994 Eyes pupils and irises Pupil: round 12/01/2011 None Full Exam - General 1994 Eyes pupils and irises Pupil: reactive to light 12/01/2011 None Full Exam - General 1994 Musculoskeletal head and neck Overall: head atraumatic 12/01/2011 None Full Exam - General 1994 Musculoskeletal head and neck Overall: cervical spine benign 12/01/2011 None Full Exam - General 1994 Respiratory auscultation Overall: breath sounds clear bilaterally 12/01/2011 None Full Exam - General 1994 Respiratory respiratory effort/rhythm Overall: no retractions 12/01/2011 None Full Exam - General 1994 Respiratory respiratory effort/rhythm Overall: normal rate 12/01/2011 None Full Exam - General 1994 Cardiovascular auscultation of heart Overall: regular rate 12/01/2011 None Full Exam - General 1994 Cardiovascular auscultation of heart Overall: normal heart sounds 12/01/2011 None Full Exam - General 1994 Cardiovascular auscultation of heart Overall: no murmurs 12/01/2011 None Full Exam - General 1994 Chest/Breast breast and axillae palpation Nipple: non-tender 12/01/2011 None Full Exam - General 1994 Chest/Breast breast and axillae palpation Nipple: no discharge 12/01/2011 None Full Exam - General 1994 Chest/Breast breast and axillae palpation Axillae: no mass 12/01/2011 None Full Exam - General 1994 Chest/Breast breast and axillae palpation Upper inner quadrant: no mass 12/01/2011 None Full Exam - General 1994 Chest/Breast breast and axillae palpation Upper outer quadrant: no mass 12/01/2011 None Full Exam - General 1994 Chest/Breast breast and axillae palpation Lower inner quadrant: no mass 12/01/2011 None Full Exam - General 1994 Chest/Breast breast and axillae palpation Lower inner quadrant: non-tender 12/01/2011 No ne Full Exam - General 1994 Chest/Breast breast and axillae palpation Lower inner quadrant: tender 12/01/2011 over t eh 8 o clock position Full Exam - General 1994 Constitutional general appearance Overall: well nourished 12/01/2011 None Full Exam - General 1994 Constitutional general appearance Overall: well developed 12/01/2011 None Full Exam - General 1994 Constitutional general appearance Overall: in no acute distress 12/01/2011 None Full Exam - General 1994 Ears/Nose/Throat otoscopic exam Overall: external auditory canals clear 12/01/2011 None Full Exam - General 1994 Ears/Nose/Throat otoscopic exam Overall: tympanic membranes clear 12/01/2011 None Full Exam - General 1994 Ears/Nose/Throat oral cavity/pharynx/larynx Overall: oral mucosa clear 12/01/2011 None Full Exam - General 1994 Ears/Nose/Throat oral cavity/pharynx/larynx Overall: oropharyngeal mucosa clear 12/01/2011 None Full Exam - General 1994 Ears/Nose/Throat oral cavity/pharynx/larynx Overall: no masses 12/01/2011 None Full Exam - General 1994 Constitutional general appearance Overall: well nourished 08/11/2011 None Full Exam - General 1994 Constitutional general appearance Overall: well developed 08/11/2011 None Full Exam - General 1994 Constitutional general appearance Overall: in no acute distress 08/11/2011 None Full Exam - General 1994 Ears/Nose/Throat otoscopic exam Overall: external auditory canals clear 08/11/2011 None Full Exam - General 1994 Ears/Nose/Throat otoscopic exam Overall: tympanic membranes clear 08/11/2011 None Full Exam - General 1994 Ears/Nose/Throat oral cavity/pharynx/larynx Overall: oral mucosa clear 08/11/2011 None Full Exam - General 1994 Ears/Nose/Throat oral cavity/pharynx/larynx Overall: oropharyngeal mucosa clear 08/11/2011 None Full Exam - General 1994 Ears/Nose/Throat oral cavity/pharynx/larynx Overall: no masses 08/11/2011 None Full Exam - General 1994 Respiratory auscultation Overall: breath sounds clear bilaterally 08/11/2011 None Full Exam - General 1994 Respiratory respiratory effort/rhythm Overall: no retractions 08/11/2011 None Full Exam - General 1994 Respiratory respiratory effort/rhythm Overall: normal rate 08/11/2011 None Full Exam - General 1994 Cardiovascular auscultation of heart Overall: regular rate 08/11/2011 None Full Exam - General 1994 Cardiovascular auscultation of heart Overall: normal heart sounds 08/11/2011 None Full Exam - General 1994 Cardiovascular auscultation of heart Overall: no murmurs 08/11/2011 None Full Exam - General 1994 Chest/Breast breast and axillae palpation Nipple: non-tender 08/11/2011 None Full Exam - General 1994 Chest/Breast breast and axillae palpation Nipple: no discharge 08/11/2011 None Full Exam - General 1994 Chest/Breast breast and axillae palpation Axillae: no mass 08/11/2011 None Full Exam - General 1994 Chest/Breast breast and axillae palpation Upper inner quadrant: no mass 08/11/2011 None Full Exam - General 1994 Chest/Breast breast and axillae palpation Upper outer quadrant: no mass 08/11/2011 None Full Exam - General 1994 Chest/Breast breast and axillae palpation Lower inner quadrant: no mass 08/11/2011 None Full Exam - General 1994 Chest/Breast breast and axillae palpation Lower inner quadrant: non-tender 08/11/2011 No ne Full Exam - General 1995 Chest/Breast breast and axillae palpation Lower inner quadrant: tender 08/11/2011 over t eh 8 o clock position Full Exam - General 1995 Chest/Breast breast and axillae palpation Lower inner quadrant: soft 08/11/2011 None Full Exam - General 1995 Chest/Breast breast/chest inspection Overall: normal chest shape 08/11/2011 None Full Exam - General 1995 Chest/Breast breast/chest inspection Skin appearance: a normal exam 08/11/2011 None Full Exam - General 1995 Abdomen abdominal exam Overall: no tenderness 08/11/2011 None Full Exam - General 1995 Abdomen abdominal exam Overall: normal bowel sounds 08/11/2011 None Full Exam - General 1994 Neurologic gait Overall: no ataxia, no unsteadiness 08/11/2011 None Full Exam - General 1994 Psychiatric orientation/consciousness Overall: oriented to person, place and time 08/11/2011 None Full Exam - General 1994 Psychiatric mood and affect Overall: normal mood and affect 08/11/2011 None Full Exam - General 1994 Musculoskeletal digits and nails DIPs: fifth 08/11/2011 None Full Exam - General 1994 Musculoskeletal digits and nails DIPs: bony enlargement 08/11/2011 None Full Exam - General 1994 Musculoskeletal digits and nails DIPs: nodule 08/11/2011 None Full Exam - General 1994 Neurologic gait Overall: no ataxia, no unsteadiness 06/01/2011 None Full Exam - General 1994 Psychiatric orientation/consciousness Overall: oriented to person, place and time 06/01/2011 None Full Exam - General 1994 Psychiatric mood and affect Mood: anxious 06/01/2011 None Full Exam - General 1994 Eyes pupils and irises Overall: pupils equal, round, reactive to light and accomodation 06/01/2011 None Full Exam - General 1994 Integument inspection of skin Location: left hand 06/01/2011 index finger Full Exam - General 1994 Constitutional general appearance Overall: in no acute distress 06/01/2011 None Full Exam - General 1994 Ears/Nose/Throat otoscopic exam Overall: external auditory canals clear 06/01/2011 None Full Exam - General 1995 Ears/Nose/Throat otoscopic exam Overall: tympanic membranes clear 06/01/2011 None Full Exam - General 1994 Ears/Nose/Throat oral cavity/pharynx/larynx Overall: oral mucosa clear 06/01/2011 None Full Exam - General 1995 Ears/Nose/Throat oral cavity/pharynx/larynx Overall: oropharyngeal mucosa clear 06/01/2011 None Full Exam - General 1994 Ears/Nose/Throat oral cavity/pharynx/larynx Overall: no masses 06/01/2011 None Full Exam - General 1994 Respiratory auscultation Overall: breath sounds clear bilaterally 06/01/2011 None Full Exam - General 1994 Respiratory respiratory effort/rhythm Overall: no retractions 06/01/2011 None Full Exam - General 1994 Respiratory respiratory effort/rhythm Overall: normal rate 06/01/2011 None Full Exam - General 1994 Cardiovascular auscultation of heart Overall: regular rate 06/01/2011 None Full Exam - General 1994 Cardiovascular auscultation of heart Overall: normal heart sounds 06/01/2011 None Full Exam - General 1994 Cardiovascular auscultation of heart Overall: no murmurs 06/01/2011 None Full Exam - General 1994 Abdomen abdominal exam Overall: no tenderness 06/01/2011 None Full Exam - General 1994 Constitutional general appearance Overall: well nourished 06/01/2011 None Full Exam - General 1994 Constitutional general appearance Overall: well developed 06/01/2011 None Full Exam - General 1994 Abdomen abdominal exam Overall: normal bowel sounds 06/01/2011 None Full Exam - General 1994 Musculoskeletal head and neck Overall: head atraumatic 06/01/2011 None Full Exam - General 1994 Musculoskeletal head and neck Overall: cervical spine benign 06/01/2011 None Full Exam - General 1994 Constitutional general appearance Overall: well nourished 05/18/2011 None Full Exam - General 1994 Constitutional general appearance Overall: well developed 05/18/2011 None Full Exam - General 1994 Constitutional general appearance Overall: in no acute distress 05/18/2011 None Full Exam - General 1994 Eyes pupils and irises Pupil: irregular shape 05/18/2011 None Full Exam - General 1994 Eyes pupils and irises Pupil: round 05/18/2011 None Full Exam - General 1994 Eyes pupils and irises Pupil: reactive to light 05/18/2011 None Full Exam - General 1994 Eyes pupils and irises Pupil: reactive to accommodation 05/18/2011 None Full Exam - General 1994 Ears/Nose/Throat otoscopic exam Overall: tympanic membranes clear 05/18/2011 None Full Exam - General 1994 Ears/Nose/Throat otoscopic exam Overall: external auditory canals clear 05/18/2011 None Full Exam - General 1994 Ears/Nose/Throat oral cavity/pharynx/larynx Overall: oropharyngeal mucosa clear 05/18/2011 None Full Exam - General 1994 Ears/Nose/Throat oral cavity/pharynx/larynx Overall: no masses 05/18/2011 None Full Exam - General 1995 Ears/Nose/Throat oral cavity/pharynx/larynx Overall: oral mucosa clear 05/18/2011 None Full Exam - General 1994 Respiratory auscultation Overall: breath sounds clear bilaterally 05/18/2011 None Full Exam - General 1994 Respiratory respiratory effort/rhythm Overall: normal rate 05/18/2011 None Full Exam - General 1994 Respiratory respiratory effort/rhythm Overall: no retractions 05/18/2011 None Full Exam - General 1994 Cardiovascular auscultation of heart Overall: regular rate 05/18/2011 None Full Exam - General 1994 Cardiovascular auscultation of heart Overall: normal heart sounds 05/18/2011 None Full Exam - General 1994 Cardiovascular auscultation of heart Overall: no murmurs 05/18/2011 None Full Exam - General 1994 Chest/Breast breast and axillae palpation Nipple: non-tender 05/18/2011 None Full Exam - General 1994 Chest/Breast breast and axillae palpation Nipple: no discharge 05/18/2011 None Full Exam - General 1994 Chest/Breast breast and axillae palpation Axillae: no mass 05/18/2011 None Full Exam - General 1994 Chest/Breast breast and axillae palpation Upper inner quadrant: no mass 05/18/2011 None Full Exam - General 1994 Chest/Breast breast and axillae palpation Upper outer quadrant: no mass 05/18/2011 None Full Exam - General 1994 Chest/Breast breast and axillae palpation Lower inner quadrant: no mass 05/18/2011 None Full Exam - General 1994 Chest/Breast breast and axillae palpation Lower inner quadrant: soft 05/18/2011 None Full Exam - General 1994 Chest/Breast breast and axillae palpation Lower inner quadrant: tender 05/18/2011 over t eh 8 o clock position Full Exam - General 1994 Chest/Breast breast and axillae palpation Lower inner quadrant: non-tender 05/18/2011 No ne Full Exam - General 1994 Abdomen abdominal exam Overall: no tenderness 05/18/2011 None Full Exam - General 1994 Abdomen abdominal exam Overall: normal bowel sounds 05/18/2011 None Full Exam - General 1994 Chest/Breast breast/chest inspection Overall: normal chest shape 05/18/2011 None Full Exam - General 1994 Chest/Breast breast/chest inspection Skin appearance: a normal exam 05/18/2011 None Full Exam - General 1994 Lymphatic neck nodes Overall: anterior cervical chain benign 05/18/2011 None Full Exam - General 1994 Lymphatic neck nodes Overall: posterior cervical chain benign 05/18/2011 None Full Exam - General 1994 Musculoskeletal head and neck Overall: cervical spine benign 05/18/2011 None Full Exam - General 1994 Musculoskeletal head and neck Overall: head atraumatic 05/18/2011 None Full Exam - General 1994 Integument inspection of skin Overall: no rash, lesions 05/18/2011 None Full Exam - General 1994 Neurologic gait Overall: no ataxia, no unsteadiness 05/18/2011 None Full Exam - General 1994 Psychiatric orientation/consciousness Overall: oriented to person, place and time 05/18/2011 None Full Exam - General 1994 Psychiatric mood and affect Mood: anxious 05/18/2011 None Exam Name System Name It em Name Status Result Effective Dates Notes Full Exam - ENT Constitutional general appearance Overall: well nourished 10/19/2016 None Full Exam - ENT Constitutional general appearance Overall: well developed 10/19/2016 None Full Exam - ENT Constitutional general appearance Overall: in no acute distress 10/19/2016 None Full Exam - ENT Ears/Nose/Throat otoscopic exam Overall: external auditory canals normal 10/19/2016 None Full Exam - ENT Ears/Nose/Throat otoscopic exam Overall: tympanic membranes normal 10/19/2016 None Full Exam - ENT Ears/Nose/Throat oropharynx Overall: oral mucosa clear 10/19/2016 None Full Exam - ENT Face and Head palpation Overall: no sinus tenderness 10/19/2016 None Full Exam - ENT Respiratory inspection Overall: no retractions 10/19/2016 None Full Exam - ENT Respiratory inspection Overall: normal rate 10/2016 None Full Exam - ENT Respiratory auscultation Overall: breath sounds clear bilater ally 10/19/2016 None Full Exam - ENT Cardiovascular auscultation of heart Overall: regular rate 10/19/2016 None Full Exam - ENT Cardiovascular auscultation of heart Overall: normal heart sounds 10/19/2016 None Full Exam - ENT Lymphatic palpation of lymph nodes Overall: anterior cervical chain benign 10/19/2016 None Full Exam - ENT Lymphatic palpation of lymph nodes Overall: posterior cervical chain benign 10/19/2016 None Full Exam - ENT Integument inspection of skin Overall: no rash, lesions 10/19/2016 None Full Exam - ENT Neurologic orientation Overall: oriented to person, place a nd time 10/19/2016 None Full Exam - ENT Musculoskeletal left lower extremity Inspection - left foot: swelling 10/19/2016 and bruising left foot/he el Full Exam - ENT Musculoskeletal left lower extremity Palpation - left foot: tender 10/19/2016 at calcaneous Full Exam - General 1994 Constitutional general appearance Overall: well developed 08/09/2016 None Full Exam - General 1994 Constitutional general appearance Overall: in no acute distress 08/09/2016 None Full Exam - General 1994 Constitutional general appearance Overall: well nourished 08/09/2016 None Full Exam - General 1994 Eyes conjunctiva/eyelids Overall: conjunctiva clear 08/09/2016 None Full Exam - General 1994 Eyes pupils and irises Overall: pupils equal, round, reactive to light and accomodation 08/09/2016 None Full Exam - General 1994 Eyes pupils and irises Pupil: round 08/09/2016 None Full Exam - General 1994 Eyes pupils and irises Pupil: reactive to light 08/09/2016 None Full Exam - General 1994 Ears/Nose/Throat otoscopic exam Overall: external auditory canals clear 08/09/2016 None Full Exam - General 1994 Ears/Nose/Throat otoscopic exam Overall: tympanic membranes clear 08/09/2016 None Full Exam - General 1994 Ears/Nose/Throat oral cavity/pharynx/larynx Overall: oral mucosa clear 08/09/2016 None Full Exam - General 1994 Ears/Nose/Throat oral cavity/pharynx/larynx Overall: oropharyngeal mucosa clear 08/09/2016 None Full Exam - General 1994 Ears/Nose/Throat oral cavity/pharynx/larynx Overall: no masses 08/09/2016 None Full Exam - General 1994 Respiratory auscultation Overall: breath sounds clear bilaterally 08/09/2016 None Full Exam - General 1994 Respiratory respiratory effort/rhythm Overall: no retractions 08/09/2016 None Full Exam - General 1994 Respiratory respiratory effort/rhythm Overall: normal rate 08/09/2016 None Full Exam - General 1994 Cardiovascular auscultation of heart Overall: regular rate 08/09/2016 None Full Exam - General 1994 Cardiovascular auscultation of heart Overall: normal heart sounds 08/09/2016 None Full Exam - General 1994 Cardiovascular auscultation of heart Overall: no murmurs 08/09/2016 None Full Exam - General 1994 Abdomen abdominal exam Overall: no tenderness 08/09/2016 None Full Exam - General 1994 Abdomen abdominal exam Overall: normal bowel sounds 08/09/2016 None Full Exam - General 1994 Musculoskeletal head and neck Overall: head atraumatic 08/09/2016 None Full Exam - General 1994 Musculoskeletal head and neck Overall: cervical spine benign 08/09/2016 None Full Exam - General 1994 Integument inspection of skin Overall: no rash, lesions 08/09/2016 None Full Exam - General 1994 Neurologic gait Overall: no ataxia, no unsteadiness 08/09/2016 None Full Exam - General 1994 Psychiatric orientation/consciousness Overall: oriented to person, place and time 08/09/2016 None Full Exam - General 1994 Psychiatric mood and affect Mood: happy 08/09/2016 None Full Exam - General 1994 Psychiatric mood and affect Affect: mood congruent 08/09/2016 None Full Exam - ENT Constitutional general appearance Overall: well nourished 07/20/2016 None Full Exam - ENT Constitutional general appearance Overall: well developed 07/20/2016 None Full Exam - ENT Constitutional general appearance Overall: in no acute distress 07/20/2016 None Full Exam - ENT Ears/Nose/Throat otoscopic exam Overall: external auditory canals normal 07/20/2016 None Full Exam - ENT Ears/Nose/Throat otoscopic exam Overall: tympanic membranes normal 07/20/2016 None Full Exam - ENT Ears/Nose/Throat oropharynx Overall: oral mucosa clear 07/20/2016 None Full Exam - ENT Face and Head palpation Overall: no sinus tenderness 07/20/2016 None Full Exam - ENT Respiratory inspection Overall: no retractions 07/20/2016 None Full Exam - ENT Respiratory inspection Overall: normal rate 11/2016 None Full Exam - ENT Respiratory auscultation Overall: breath sounds clear bilater ally 07/20/2016 None Full Exam - ENT Cardiovascular auscultation of heart Overall: regular rate 07/20/2016 None Full Exam - ENT Cardiovascular auscultation of heart Overall: normal heart sounds 07/20/2016 None Full Exam - ENT Lymphatic palpation of lymph nodes Overall: anterior cervical chain benign 07/20/2016 None Full Exam - ENT Lymphatic palpation of lymph nodes Overall: posterior cervical chain benign 07/20/2016 None Full Exam - ENT Neurologic orientation Overall: oriented to person, place a nd time 07/20/2016 None Full Exam - ENT Integument inspection of skin Overall: no rash, lesions 07/20/2016 None Full Exam - General 1994 Constitutional general appearance Overall: well developed 05/27/2016 None Full Exam - General 1994 Constitutional general appearance Overall: in no acute distress 05/27/2016 None Full Exam - General 1994 Constitutional general appearance Overall: well nourished 05/27/2016 None Full Exam - General 1994 Eyes conjunctiva/eyelids Overall: conjunctiva clear 05/27/2016 None Full Exam - General 1994 Eyes pupils and irises Overall: pupils equal, round, reactive to light and accomodation 05/27/2016 None Full Exam - General 1994 Eyes pupils and irises Pupil: round 05/27/2016 None Full Exam - General 1994 Eyes pupils and irises Pupil: reactive to light 05/27/2016 None Full Exam - General 1994 Ears/Nose/Throat otoscopic exam Overall: external auditory canals clear 05/27/2016 None Full Exam - General 1994 Ears/Nose/Throat otoscopic exam Overall: tympanic membranes clear 05/27/2016 None Full Exam - General 1994 Ears/Nose/Throat oral cavity/pharynx/larynx Overall: oral mucosa clear 05/27/2016 None Full Exam - General 1994 Ears/Nose/Throat oral cavity/pharynx/larynx Overall: oropharyngeal mucosa clear 05/27/2016 None Full Exam - General 1994 Ears/Nose/Throat oral cavity/pharynx/larynx Overall: no masses 05/27/2016 None Full Exam - General 1994 Respiratory auscultation Overall: breath sounds clear bilaterally 05/27/2016 None Full Exam - General 1994 Respiratory respiratory effort/rhythm Overall: no retractions 05/27/2016 None Full Exam - General 1994 Respiratory respiratory effort/rhythm Overall: normal rate 05/27/2016 None Full Exam - General 1994 Cardiovascular auscultation of heart Overall: regular rate 05/27/2016 None Full Exam - General 1994 Cardiovascular auscultation of heart Overall: normal heart sounds 05/27/2016 None Full Exam - General 1994 Cardiovascular auscultation of heart Overall: no murmurs 05/27/2016 None Full Exam - General 1994 Abdomen abdominal exam Overall: no tenderness 05/27/2016 None Full Exam - General 1994 Abdomen abdominal exam Overall: normal bowel sounds 05/27/2016 None Full Exam - General 1994 Musculoskeletal head and neck Overall: head atraumatic 05/27/2016 None Full Exam - General 1994 Musculoskeletal head and neck Overall: cervical spine benign 05/27/2016 None Full Exam - General 1994 Integument inspection of skin Overall: no rash, lesions 05/27/2016 None Full Exam - General 1994 Neurologic gait Overall: no ataxia, no unsteadiness 05/27/2016 None Full Exam - General 1994 Psychiatric orientation/consciousness Overall: oriented to person, place and time 05/27/2016 None Full Exam - General 1994 Psychiatric mood and affect Mood: happy 05/27/2016 None Full Exam - General 1994 Psychiatric mood and affect Affect: mood congruent 05/27/2016 None Full Exam - ENT Constitutional general appearance Overall: well nourished 04/29/2016 None Full Exam - ENT Constitutional general appearance Overall: well developed 04/29/2016 None Full Exam - ENT Constitutional general appearance Overall: in no acute distress 04/29/2016 None Full Exam - ENT Ears/Nose/Throat otoscopic exam Overall: external auditory canals normal 04/29/2016 None Full Exam - ENT Ears/Nose/Throat otoscopic exam Overall: tympanic membranes normal 04/29/2016 None Full Exam - ENT Ears/Nose/Throat oropharynx Overall: oral mucosa clear 04/29/2016 None Full Exam - ENT Face and Head palpation Overall: no sinus tenderness 04/29/2016 None Full Exam - ENT Respiratory inspection Overall: no retractions 04/29/2016 None Full Exam - ENT Respiratory inspection Overall: normal rate None Full Exam - ENT Respiratory auscultation Overall: breath sounds clear bilater ally 04/29/2016 None Full Exam - ENT Cardiovascular auscultation of heart Overall: regular rate 04/29/2016 None Full Exam - ENT Cardiovascular auscultation of heart Overall: normal heart sounds 04/29/2016 None Full Exam - ENT Lymphatic palpation of lymph nodes Overall: anterior cervical chain benign 04/29/2016 None Full Exam - ENT Lymphatic palpation of lymph nodes Overall: posterior cervical chain benign 04/29/2016 None Full Exam - ENT Neurologic orientation Overall: oriented to person, place a nd time 04/29/2016 None Full Exam - General 1994 Constitutional general appearance Overall: well developed 04/02/2016 None Full Exam - General 1994 Constitutional general appearance Overall: well nourished 04/02/2016 None Full Exam - General 1994 Constitutional general appearance Evidence of Distress: tearful 04/02/2016 --Improved Full Exam - General 1994 Eyes pupils and irises Pupil: round 04/02/2016 None Full Exam - General 1994 Eyes pupils and irises Pupil: reactive to light 04/02/2016 None Full Exam - General 1994 Ears/Nose/Throat otoscopic exam Overall: external auditory canals clear 04/02/2016 None Full Exam - General 1994 Ears/Nose/Throat otoscopic exam Overall: tympanic membranes clear 04/02/2016 None Full Exam - General 1994 Ears/Nose/Throat oral cavity/pharynx/larynx Overall: oral mucosa clear 04/02/2016 None Full Exam - General 1994 Ears/Nose/Throat oral cavity/pharynx/larynx Overall: oropharyngeal mucosa clear 04/02/2016 None Full Exam - General 1994 Ears/Nose/Throat oral cavity/pharynx/larynx Overall: no masses 04/02/2016 None Full Exam - General 1994 Respiratory auscultation Overall: breath sounds clear bilaterally 04/02/2016 None Full Exam - General 1994 Respiratory respiratory effort/rhythm Overall: no retractions 04/02/2016 None Full Exam - General 1994 Respiratory respiratory effort/rhythm Overall: normal rate 04/02/2016 None Full Exam - General 1994 Cardiovascular auscultation of heart Overall: regular rate 04/02/2016 None Full Exam - General 1994 Cardiovascular auscultation of heart Overall: normal heart sounds 04/02/2016 None Full Exam - General 1994 Cardiovascular auscultation of heart Overall: no murmurs 04/02/2016 None Full Exam - General 1994 Abdomen abdominal exam Overall: no tenderness 04/02/2016 None Full Exam - General 1994 Abdomen abdominal exam Overall: normal bowel sounds 04/02/2016 None Full Exam - General 1994 Musculoskeletal head and neck Overall: head atraumatic 04/02/2016 None Full Exam - General 1994 Musculoskeletal head and neck Overall: cervical spine benign 04/02/2016 None Full Exam - General 1994 Neurologic gait Overall: no ataxia, no unsteadiness 04/02/2016 None Full Exam - General 1994 Psychiatric orientation/consciousness Overall: oriented to person, place and time 04/02/2016 None Full Exam - General 1994 Psychiatric mood and affect Mood: depressed 04/02/2016 --Improved Full Exam - General 1994 Psychiatric mood and affect Mood: anxious 04/02/2016 --Improved Full Exam - General 1994 Psychiatric mood and affect Appropriateness: inappropriate emotional responses 04/02/2016 --Improved Full Exam - General 1994 Constitutional general appearance Overall: well developed 03/18/2016 None Full Exam - General 1994 Constitutional general appearance Overall: well nourished 03/18/2016 None Full Exam - General 1994 Eyes pupils and irises Pupil: round 03/18/2016 None Full Exam - General 1994 Eyes pupils and irises Pupil: reactive to light 03/18/2016 None Full Exam - General 1994 Ears/Nose/Throat otoscopic exam Overall: external auditory canals clear 03/18/2016 None Full Exam - General 1994 Ears/Nose/Throat otoscopic exam Overall: tympanic membranes clear 03/18/2016 None Full Exam - General 1994 Ears/Nose/Throat oral cavity/pharynx/larynx Overall: oral mucosa clear 03/18/2016 None Full Exam - General 1994 Ears/Nose/Throat oral cavity/pharynx/larynx Overall: oropharyngeal mucosa clear 03/18/2016 None Full Exam - General 1994 Ears/Nose/Throat oral cavity/pharynx/larynx Overall: no masses 03/18/2016 None Full Exam - General 1994 Respiratory auscultation Overall: breath sounds clear bilaterally 03/18/2016 None Full Exam - General 1994 Respiratory respiratory effort/rhythm Overall: no retractions 03/18/2016 None Full Exam - General 1994 Respiratory respiratory effort/rhythm Overall: normal rate 03/18/2016 None Full Exam - General 1994 Cardiovascular auscultation of heart Overall: regular rate 03/18/2016 None Full Exam - General 1994 Cardiovascular auscultation of heart Overall: normal heart sounds 03/18/2016 None Full Exam - General 1994 Cardiovascular auscultation of heart Overall: no murmurs 03/18/2016 None Full Exam - General 1994 Abdomen abdominal exam Overall: no tenderness 03/18/2016 None Full Exam - General 1994 Abdomen abdominal exam Overall: normal bowel sounds 03/18/2016 None Full Exam - General 1994 Musculoskeletal head and neck Overall: head atraumatic 03/18/2016 None Full Exam - General 1994 Musculoskeletal head and neck Overall: cervical spine benign 03/18/2016 None Full Exam - General 1994 Neurologic gait Overall: no ataxia, no unsteadiness 03/18/2016 None Full Exam - General 1994 Psychiatric orientation/consciousness Overall: oriented to person, place and time 03/18/2016 None Full Exam - General 1994 Constitutional general appearance Evidence of Distress: tearful 03/18/2016 None Full Exam - General 1994 Psychiatric mood and affect Mood: anxious 03/18/2016 None Full Exam - General 1994 Psychiatric mood and affect Mood: depressed 03/18/2016 None Full Exam - General 1994 Psychiatric mood and affect Appropriateness: inappropriate emotional responses 03/18/2016 None Full Exam - ENT Constitutional general appearance Overall: well nourished 01/26/2016 None Full Exam - ENT Constitutional general appearance Overall: well developed 01/26/2016 None Full Exam - ENT Constitutional general appearance Overall: in no acute distress 01/26/2016 None Full Exam - ENT Ears/Nose/Throat otoscopic exam Overall: external auditory canals normal 01/26/2016 None Full Exam - ENT Ears/Nose/Throat otoscopic exam Overall: tympanic membranes normal 01/26/2016 None Full Exam - ENT Ears/Nose/Throat oropharynx Overall: oral mucosa clear 01/26/2016 None Full Exam - ENT Face and Head palpation Overall: no sinus tenderness 01/26/2016 None Full Exam - ENT Respiratory inspection Overall: no retractions 01/26/2016 None Full Exam - ENT Respiratory inspection Overall: normal rate 04/2016 None Full Exam - ENT Respiratory auscultation Overall: breath sounds clear bilater ally 01/26/2016 None Full Exam - ENT Cardiovascular auscultation of heart Overall: regular rate 01/26/2016 None Full Exam - ENT Cardiovascular auscultation of heart Overall: normal heart sounds 01/26/2016 None Full Exam - ENT Lymphatic palpation of lymph nodes Overall: anterior cervical chain benign 01/26/2016 None Full Exam - ENT Lymphatic palpation of lymph nodes Overall: posterior cervical chain benign 01/26/2016 None Full Exam - ENT Neurologic orientation Overall: oriented to person, place a nd time 01/26/2016 None Full Exam - Cardiology Integument inspection/palpation Location: back 01/01/2016 kelsey K middle upper back Full Exam - General 1994 Constitutional general appearance Overall: well developed 12/25/2015 None Full Exam - General 1994 Constitutional general appearance Overall: in no acute distress 12/25/2015 None Full Exam - General 1994 Constitutional general appearance Overall: well nourished 12/25/2015 None Full Exam - General 1994 Eyes conjunctiva/eyelids Overall: conjunctiva clear 12/25/2015 None Full Exam - General 1994 Eyes pupils and irises Overall: pupils equal, round, reactive to light and accomodation 12/25/2015 None Full Exam - General 1994 Eyes pupils and irises Pupil: round 12/25/2015 None Full Exam - General 1994 Eyes pupils and irises Pupil: reactive to light 12/25/2015 None Full Exam - General 1994 Ears/Nose/Throat otoscopic exam Overall: external auditory canals clear 12/25/2015 None Full Exam - General 1994 Ears/Nose/Throat otoscopic exam Overall: tympanic membranes clear 12/25/2015 None Full Exam - General 1994 Ears/Nose/Throat oral cavity/pharynx/larynx Overall: oral mucosa clear 12/25/2015 None Full Exam - General 1994 Ears/Nose/Throat oral cavity/pharynx/larynx Overall: oropharyngeal mucosa clear 12/25/2015 None Full Exam - General 1994 Ears/Nose/Throat oral cavity/pharynx/larynx Overall: no masses 12/25/2015 None Full Exam - General 1994 Respiratory auscultation Overall: breath sounds clear bilaterally 12/25/2015 None Full Exam - General 1994 Respiratory respiratory effort/rhythm Overall: no retractions 12/25/2015 None Full Exam - General 1994 Respiratory respiratory effort/rhythm Overall: normal rate 12/25/2015 None Full Exam - General 1994 Cardiovascular auscultation of heart Overall: regular rate 12/25/2015 None Full Exam - General 1994 Cardiovascular auscultation of heart Overall: normal heart sounds 12/25/2015 None Full Exam - General 1994 Cardiovascular auscultation of heart Overall: no murmurs 12/25/2015 None Full Exam - General 1994 Abdomen abdominal exam Overall: no tenderness 12/25/2015 None Full Exam - General 1994 Abdomen abdominal exam Overall: normal bowel sounds 12/25/2015 None Full Exam - General 1994 Musculoskeletal head and neck Overall: head atraumatic 12/25/2015 None Full Exam - General 1994 Musculoskeletal head and neck Overall: cervical spine benign 12/25/2015 None Full Exam - General 1994 Integument inspection of skin Overall: no rash, lesions 12/25/2015 None Full Exam - General 1994 Neurologic gait Overall: no ataxia, no unsteadiness 12/25/2015 None Full Exam - General 1994 Psychiatric orientation/consciousness Overall: oriented to person, place and time 12/25/2015 None Full Exam - General 1994 Psychiatric mood and affect Mood: happy 12/25/2015 None Full Exam - General 1994 Psychiatric mood and affect Affect: mood congruent 12/25/2015 None Full Exam - General 1994 Constitutional general appearance Overall: well developed 12/08/2015 None Full Exam - General 1994 Constitutional general appearance Overall: in no acute distress 12/08/2015 None Full Exam - General 1994 Constitutional general appearance Overall: well nourished 12/08/2015 None Full Exam - General 1994 Eyes conjunctiva/eyelids Overall: conjunctiva clear 12/08/2015 None Full Exam - General 1994 Eyes pupils and irises Overall: pupils equal, round, reactive to light and accomodation 12/08/2015 None Full Exam - General 1994 Eyes pupils and irises Pupil: round 12/08/2015 None Full Exam - General 1994 Eyes pupils and irises Pupil: reactive to light 12/08/2015 None Full Exam - General 1994 Ears/Nose/Throat otoscopic exam Overall: external auditory canals clear 12/08/2015 None Full Exam - General 1994 Ears/Nose/Throat otoscopic exam Overall: tympanic membranes clear 12/08/2015 None Full Exam - General 1994 Ears/Nose/Throat oral cavity/pharynx/larynx Overall: oral mucosa clear 12/08/2015 None Full Exam - General 1994 Ears/Nose/Throat oral cavity/pharynx/larynx Overall: oropharyngeal mucosa clear 12/08/2015 None Full Exam - General 1994 Ears/Nose/Throat oral cavity/pharynx/larynx Overall: no masses 12/08/2015 None Full Exam - General 1994 Respiratory auscultation Overall: breath sounds clear bilaterally 12/08/2015 None Full Exam - General 1994 Respiratory respiratory effort/rhythm Overall: no retractions 12/08/2015 None Full Exam - General 1994 Respiratory respiratory effort/rhythm Overall: normal rate 12/08/2015 None Full Exam - General 1994 Cardiovascular auscultation of heart Overall: regular rate 12/08/2015 None Full Exam - General 1994 Cardiovascular auscultation of heart Overall: normal heart sounds 12/08/2015 None Full Exam - General 1994 Cardiovascular auscultation of heart Overall: no murmurs 12/08/2015 None Full Exam - General 1994 Abdomen abdominal exam Overall: no tenderness 12/08/2015 None Full Exam - General 1994 Abdomen abdominal exam Overall: normal bowel sounds 12/08/2015 None Full Exam - General 1994 Musculoskeletal head and neck Overall: head atraumatic 12/08/2015 None Full Exam - General 1994 Musculoskeletal head and neck Overall: cervical spine benign 12/08/2015 None Full Exam - General 1994 Integument inspection of skin Overall: no rash, lesions 12/08/2015 None Full Exam - General 1994 Neurologic gait Overall: no ataxia, no unsteadiness 12/08/2015 None Full Exam - General 1994 Psychiatric orientation/consciousness Overall: oriented to person, place and time 12/08/2015 None Full Exam - General 1994 Psychiatric mood and affect Mood: happy 12/08/2015 None Full Exam - General 1994 Psychiatric mood and affect Affect: mood congruent 12/08/2015 None Full Exam - General 1994 Abdomen abdominal exam Epigastric: non-tender to palpation 12/08/2015 mild Full Exam - General 1994 Constitutional general appearance Overall: well developed 09/23/2015 None Full Exam - General 1994 Constitutional general appearance Overall: in no acute distress 09/23/2015 None Full Exam - General 1994 Constitutional general appearance Overall: well nourished 09/23/2015 None Full Exam - General 1994 Eyes conjunctiva/eyelids Overall: conjunctiva clear 09/23/2015 None Full Exam - General 1994 Eyes pupils and irises Overall: pupils equal, round, reactive to light and accomodation 09/23/2015 None Full Exam - General 1994 Eyes pupils and irises Pupil: round 09/23/2015 None Full Exam - General 1994 Eyes pupils and irises Pupil: reactive to light 09/23/2015 None Full Exam - General 1994 Ears/Nose/Throat otoscopic exam Overall: external auditory canals clear 09/23/2015 None Full Exam - General 1994 Ears/Nose/Throat otoscopic exam Overall: tympanic membranes clear 09/23/2015 None Full Exam - General 1994 Ears/Nose/Throat oral cavity/pharynx/larynx Overall: oral mucosa clear 09/23/2015 None Full Exam - General 1994 Ears/Nose/Throat oral cavity/pharynx/larynx Overall: oropharyngeal mucosa clear 09/23/2015 None Full Exam - General 1994 Ears/Nose/Throat oral cavity/pharynx/larynx Overall: no masses 09/23/2015 None Full Exam - General 1994 Respiratory auscultation Overall: breath sounds clear bilaterally 09/23/2015 None Full Exam - General 1994 Respiratory respiratory effort/rhythm Overall: no retractions 09/23/2015 None Full Exam - General 1994 Respiratory respiratory effort/rhythm Overall: normal rate 09/23/2015 None Full Exam - General 1994 Cardiovascular auscultation of heart Overall: regular rate 09/23/2015 None Full Exam - General 1994 Cardiovascular auscultation of heart Overall: normal heart sounds 09/23/2015 None Full Exam - General 1994 Cardiovascular auscultation of heart Overall: no murmurs 09/23/2015 None Full Exam - General 1994 Abdomen abdominal exam Overall: no tenderness 09/23/2015 None Full Exam - General 1994 Abdomen abdominal exam Overall: normal bowel sounds 09/23/2015 None Full Exam - General 1994 Musculoskeletal head and neck Overall: head atraumatic 09/23/2015 None Full Exam - General 1994 Musculoskeletal head and neck Overall: cervical spine benign 09/23/2015 None Full Exam - General 1994 Integument inspection of skin Overall: no rash, lesions 09/23/2015 None Full Exam - General 1994 Neurologic gait Overall: no ataxia, no unsteadiness 09/23/2015 None Full Exam - General 1994 Psychiatric orientation/consciousness Overall: oriented to person, place and time 09/23/2015 None Full Exam - General 1994 Psychiatric mood and affect Mood: happy 09/23/2015 None Full Exam - General 1994 Psychiatric mood and affect Affect: mood congruent 09/23/2015 None Full Exam - General 1994 Constitutional general appearance Overall: well developed 06/19/2015 None Full Exam - General 1994 Constitutional general appearance Overall: in no acute distress 06/19/2015 None Full Exam - General 1994 Constitutional general appearance Overall: well nourished 06/19/2015 None Full Exam - General 1994 Eyes conjunctiva/eyelids Overall: conjunctiva clear 06/19/2015 None Full Exam - General 1994 Eyes pupils and irises Overall: pupils equal, round, reactive to light and accomodation 06/19/2015 None Full Exam - General 1994 Eyes pupils and irises Pupil: round 06/19/2015 None Full Exam - General 1994 Eyes pupils and irises Pupil: reactive to light 06/19/2015 None Full Exam - General 1994 Ears/Nose/Throat otoscopic exam Overall: external auditory canals clear 06/19/2015 None Full Exam - General 1994 Ears/Nose/Throat otoscopic exam Overall: tympanic membranes clear 06/19/2015 None Full Exam - General 1994 Ears/Nose/Throat oral cavity/pharynx/larynx Overall: oral mucosa clear 06/19/2015 None Full Exam - General 1994 Ears/Nose/Throat oral cavity/pharynx/larynx Overall: oropharyngeal mucosa clear 06/19/2015 None Full Exam - General 1994 Ears/Nose/Throat oral cavity/pharynx/larynx Overall: no masses 06/19/2015 None Full Exam - General 1994 Respiratory auscultation Overall: breath sounds clear bilaterally 06/19/2015 None Full Exam - General 1994 Respiratory respiratory effort/rhythm Overall: no retractions 06/19/2015 None Full Exam - General 1994 Respiratory respiratory effort/rhythm Overall: normal rate 06/19/2015 None Full Exam - General 1994 Cardiovascular auscultation of heart Overall: regular rate 06/19/2015 None Full Exam - General 1994 Cardiovascular auscultation of heart Overall: normal heart sounds 06/19/2015 None Full Exam - General 1994 Cardiovascular auscultation of heart Overall: no murmurs 06/19/2015 None Full Exam - General 1994 Abdomen abdominal exam Overall: no tenderness 06/19/2015 None Full Exam - General 1994 Abdomen abdominal exam Overall: normal bowel sounds 06/19/2015 None Full Exam - General 1994 Musculoskeletal head and neck Overall: head atraumatic 06/19/2015 None Full Exam - General 1994 Musculoskeletal head and neck Overall: cervical spine benign 06/19/2015 None Full Exam - General 1994 Integument inspection of skin Overall: no rash, lesions 06/19/2015 None Full Exam - General 1994 Neurologic gait Overall: no ataxia, no unsteadiness 06/19/2015 None Full Exam - General 1994 Psychiatric orientation/consciousness Overall: oriented to person, place and time 06/19/2015 None Full Exam - General 1994 Psychiatric mood and affect Mood: happy 06/19/2015 None Full Exam - General 1994 Psychiatric mood and affect Affect: mood congruent 06/19/2015 None Full Exam - General 1994 Constitutional general appearance Overall: well developed 05/19/2015 None Full Exam - General 1994 Constitutional general appearance Overall: in no acute distress 05/19/2015 None Full Exam - General 1994 Constitutional general appearance Overall: well nourished 05/19/2015 None Full Exam - General 1994 Eyes conjunctiva/eyelids Overall: conjunctiva clear 05/19/2015 None Full Exam - General 1994 Eyes pupils and irises Overall: pupils equal, round, reactive to light and accomodation 05/19/2015 None Full Exam - General 1994 Eyes pupils and irises Pupil: round 05/19/2015 None Full Exam - General 1994 Eyes pupils and irises Pupil: reactive to light 05/19/2015 None Full Exam - General 1994 Ears/Nose/Throat otoscopic exam Overall: external auditory canals clear 05/19/2015 None Full Exam - General 1994 Ears/Nose/Throat otoscopic exam Overall: tympanic membranes clear 05/19/2015 None Full Exam - General 1994 Ears/Nose/Throat oral cavity/pharynx/larynx Overall: oral mucosa clear 05/19/2015 None Full Exam - General 1994 Ears/Nose/Throat oral cavity/pharynx/larynx Overall: oropharyngeal mucosa clear 05/19/2015 None Full Exam - General 1994 Ears/Nose/Throat oral cavity/pharynx/larynx Overall: no masses 05/19/2015 None Full Exam - General 1994 Respiratory auscultation Overall: breath sounds clear bilaterally 05/19/2015 None Full Exam - General 1994 Respiratory respiratory effort/rhythm Overall: no retractions 05/19/2015 None Full Exam - General 1994 Respiratory respiratory effort/rhythm Overall: normal rate 05/19/2015 None Full Exam - General 1994 Cardiovascular auscultation of heart Overall: regular rate 05/19/2015 None Full Exam - General 1994 Cardiovascular auscultation of heart Overall: normal heart sounds 05/19/2015 None Full Exam - General 1994 Cardiovascular auscultation of heart Overall: no murmurs 05/19/2015 None Full Exam - General 1994 Abdomen abdominal exam Overall: no tenderness 05/19/2015 None Full Exam - General 1994 Abdomen abdominal exam Overall: normal bowel sounds 05/19/2015 None Full Exam - General 1994 Musculoskeletal head and neck Overall: head atraumatic 05/19/2015 None Full Exam - General 1994 Musculoskeletal head and neck Overall: cervical spine benign 05/19/2015 None Full Exam - General 1994 Neurologic gait Overall: no ataxia, no unsteadiness 05/19/2015 None Full Exam - General 1994 Psychiatric orientation/consciousness Overall: oriented to person, place and time 05/19/2015 None Full Exam - General 1994 Psychiatric mood and affect Mood: happy 05/19/2015 None Full Exam - General 1994 Psychiatric mood and affect Affect: mood congruent 05/19/2015 None Full Exam - General 1994 Integument inspection of skin Overall: no rash, lesions 05/19/2015 None Full Exam - General 1994 Constitutional general appearance Overall: well developed 04/28/2015 None Full Exam - General 1994 Constitutional general appearance Overall: in no acute distress 04/28/2015 None Full Exam - General 1994 Constitutional general appearance Overall: well nourished 04/28/2015 None Full Exam - General 1994 Eyes conjunctiva/eyelids Overall: conjunctiva clear 04/28/2015 None Full Exam - General 1994 Eyes pupils and irises Overall: pupils equal, round, reactive to light and accomodation 04/28/2015 None Full Exam - General 1994 Eyes pupils and irises Pupil: round 04/28/2015 None Full Exam - General 1994 Eyes pupils and irises Pupil: reactive to light 04/28/2015 None Full Exam - General 1994 Ears/Nose/Throat otoscopic exam Overall: external auditory canals clear 04/28/2015 None Full Exam - General 1994 Ears/Nose/Throat otoscopic exam Overall: tympanic membranes clear 04/28/2015 None Full Exam - General 1994 Ears/Nose/Throat oral cavity/pharynx/larynx Overall: oral mucosa clear 04/28/2015 None Full Exam - General 1994 Ears/Nose/Throat oral cavity/pharynx/larynx Overall: oropharyngeal mucosa clear 04/28/2015 None Full Exam - General 1994 Ears/Nose/Throat oral cavity/pharynx/larynx Overall: no masses 04/28/2015 None Full Exam - General 1994 Respiratory auscultation Overall: breath sounds clear bilaterally 04/28/2015 None Full Exam - General 1994 Respiratory respiratory effort/rhythm Overall: no retractions 04/28/2015 None Full Exam - General 1994 Respiratory respiratory effort/rhythm Overall: normal rate 04/28/2015 None Full Exam - General 1994 Cardiovascular auscultation of heart Overall: regular rate 04/28/2015 None Full Exam - General 1994 Cardiovascular auscultation of heart Overall: normal heart sounds 04/28/2015 None Full Exam - General 1994 Cardiovascular auscultation of heart Overall: no murmurs 04/28/2015 None Full Exam - General 1994 Abdomen abdominal exam Overall: no tenderness 04/28/2015 None Full Exam - General 1994 Abdomen abdominal exam Overall: normal bowel sounds 04/28/2015 None Full Exam - General 1994 Musculoskeletal head and neck Overall: head atraumatic 04/28/2015 None Full Exam - General 1994 Musculoskeletal head and neck Overall: cervical spine benign 04/28/2015 None Full Exam - General 1994 Neurologic gait Overall: no ataxia, no unsteadiness 04/28/2015 None Full Exam - General 1994 Psychiatric orientation/consciousness Overall: oriented to person, place and time 04/28/2015 None Full Exam - General 1994 Psychiatric mood and affect Mood: happy 04/28/2015 None Full Exam - General 1994 Psychiatric mood and affect Affect: mood congruent 04/28/2015 None Full Exam - General 1994 Integument inspection of skin Rash/Lesions: macule 04/28/2015 None Full Exam - General 1994 Integument inspection of skin Location: abdomen 04/28/2015 None Full Exam - General 1994 Integument inspection of skin Location: chest 04/28/2015 None Full Exam - General 1994 Constitutional general appearance Overall: well developed 03/18/2015 None Full Exam - General 1994 Constitutional general appearance Overall: in no acute distress 03/18/2015 None Full Exam - General 1994 Constitutional general appearance Overall: well nourished 03/18/2015 None Full Exam - General 1994 Eyes conjunctiva/eyelids Overall: conjunctiva clear 03/18/2015 None Full Exam - General 1994 Eyes pupils and irises Overall: pupils equal, round, reactive to light and accomodation 03/18/2015 None Full Exam - General 1994 Eyes pupils and irises Pupil: round 03/18/2015 None Full Exam - General 1994 Eyes pupils and irises Pupil: reactive to light 03/18/2015 None Full Exam - General 1994 Ears/Nose/Throat otoscopic exam Overall: external auditory canals clear 03/18/2015 None Full Exam - General 1994 Ears/Nose/Throat otoscopic exam Overall: tympanic membranes clear 03/18/2015 None Full Exam - General 1994 Ears/Nose/Throat oral cavity/pharynx/larynx Overall: oral mucosa clear 03/18/2015 None Full Exam - General 1994 Ears/Nose/Throat oral cavity/pharynx/larynx Overall: oropharyngeal mucosa clear 03/18/2015 None Full Exam - General 1994 Ears/Nose/Throat oral cavity/pharynx/larynx Overall: no masses 03/18/2015 None Full Exam - General 1994 Respiratory auscultation Overall: breath sounds clear bilaterally 03/18/2015 None Full Exam - General 1994 Respiratory respiratory effort/rhythm Overall: no retractions 03/18/2015 None Full Exam - General 1994 Respiratory respiratory effort/rhythm Overall: normal rate 03/18/2015 None Full Exam - General 1994 Cardiovascular auscultation of heart Overall: regular rate 03/18/2015 None Full Exam - General 1994 Cardiovascular auscultation of heart Overall: normal heart sounds 03/18/2015 None Full Exam - General 1994 Cardiovascular auscultation of heart Overall: no murmurs 03/18/2015 None Full Exam - General 1994 Abdomen abdominal exam Overall: no tenderness 03/18/2015 None Full Exam - General 1994 Abdomen abdominal exam Overall: normal bowel sounds 03/18/2015 None Full Exam - General 1994 Musculoskeletal head and neck Overall: head atraumatic 03/18/2015 None Full Exam - General 1994 Musculoskeletal head and neck Overall: cervical spine benign 03/18/2015 None Full Exam - General 1994 Neurologic gait Overall: no ataxia, no unsteadiness 03/18/2015 None Full Exam - General 1994 Psychiatric orientation/consciousness Overall: oriented to person, place and time 03/18/2015 None Full Exam - General 1994 Psychiatric mood and affect Affect: mood congruent 03/18/2015 None Full Exam - General 1994 Psychiatric mood and affect Mood: happy 03/18/2015 None Full Exam - Dermatology Constitutional general appearance Overall: well nourished 02/27/2015 None Full Exam - Dermatology Constitutional general appearance Overall: well developed 02/27/2015 None Full Exam - Dermatology Constitutional general appearance Overall: in no acute distress 02/27/2015 None Full Exam - Dermatology Constitutional general appearance Overall: of normal body habitus 02/27/2015 None Full Exam - Dermatology Constitutional general appearance Overall: well groomed 02/27/2015 None Full Exam - Dermatology Psychiatric orientation Overall: oriented to person, place and time 02/27/2015 None Full Exam - Dermatology Integument insp & palp - back Location: on the upper back 02/27/2015 brown warty lesion with " stuck on" appearance-no inflammation, redness noted Full Exam - General 1994 Constitutional general appearance Overall: well developed 02/13/2015 None Full Exam - General 1994 Constitutional general appearance Overall: in no acute distress 02/13/2015 None Full Exam - General 1994 Constitutional general appearance Overall: well nourished 02/13/2015 None Full Exam - General 1994 Eyes conjunctiva/eyelids Overall: conjunctiva clear 02/13/2015 None Full Exam - General 1994 Eyes pupils and irises Overall: pupils equal, round, reactive to light and accomodation 02/13/2015 None Full Exam - General 1994 Eyes pupils and irises Pupil: round 02/13/2015 None Full Exam - General 1994 Eyes pupils and irises Pupil: reactive to light 02/13/2015 None Full Exam - General 1994 Ears/Nose/Throat otoscopic exam Overall: external auditory canals clear 02/13/2015 None Full Exam - General 1994 Ears/Nose/Throat otoscopic exam Overall: tympanic membranes clear 02/13/2015 None Full Exam - General 1994 Ears/Nose/Throat oral cavity/pharynx/larynx Overall: oral mucosa clear 02/13/2015 None Full Exam - General 1994 Ears/Nose/Throat oral cavity/pharynx/larynx Overall: oropharyngeal mucosa clear 02/13/2015 None Full Exam - General 1994 Ears/Nose/Throat oral cavity/pharynx/larynx Overall: no masses 02/13/2015 None Full Exam - General 1994 Respiratory auscultation Overall: breath sounds clear bilaterally 02/13/2015 None Full Exam - General 1994 Respiratory respiratory effort/rhythm Overall: no retractions 02/13/2015 None Full Exam - General 1994 Respiratory respiratory effort/rhythm Overall: normal rate 02/13/2015 None Full Exam - General 1994 Cardiovascular extremities Edema present: pitting 02/13/2015 None Full Exam - General 1994 Cardiovascular extremities Edema present: severity 1+ - 4+: 2 02/13/2015 None Full Exam - General 1994 Cardiovascular auscultation of heart Overall: regular rate 02/13/2015 None Full Exam - General 1994 Cardiovascular auscultation of heart Overall: normal heart sounds 02/13/2015 None Full Exam - General 1994 Cardiovascular auscultation of heart Overall: no murmurs 02/13/2015 None Full Exam - General 1994 Abdomen abdominal exam Overall: no tenderness 02/13/2015 None Full Exam - General 1994 Abdomen abdominal exam Overall: normal bowel sounds 02/13/2015 None Full Exam - General 1994 Musculoskeletal head and neck Overall: head atraumatic 02/13/2015 None Full Exam - General 1994 Musculoskeletal head and neck Overall: cervical spine benign 02/13/2015 None Full Exam - General 1994 Neurologic gait Overall: no ataxia, no unsteadiness 02/13/2015 None Full Exam - General 1994 Psychiatric orientation/consciousness Overall: oriented to person, place and time 02/13/2015 None Full Exam - General 1994 Psychiatric mood and affect Mood: flat 02/13/2015 None Full Exam - General 1994 Psychiatric mood and affect Affect: mood congruent 02/13/2015 None Full Exam - General 1994 Psychiatric orientation/consciousness Overall: oriented to person, place and time 11/18/2014 None Full Exam - General 1994 Neurologic cranial nerves Overall: crainial nerves 2 - 12 grossly intact 11/18/2014 None Full Exam - General 1994 Integument inspection of skin Overall: few scattered moles, no gross abnormalities 11/18/2014 None Full Exam - General 1994 Musculoskeletal head and neck Overall: head atraumatic 11/18/2014 None Full Exam - General 1994 Musculoskeletal head and neck Overall: TMJ benign 11/18/2014 None Full Exam - General 1994 Musculoskeletal head and neck Overall: cervical spine benign 11/18/2014 None Full Exam - General 1994 Musculoskeletal gait and station Overall: normal gait 11/18/2014 None Full Exam - General 1994 Musculoskeletal gait and station Overall: normal station 11/18/2014 None Full Exam - General 1994 Musculoskeletal spine, ribs and pelvis Overall: ribs benign 11/18/2014 None Full Exam - General 1994 Musculoskeletal spine, ribs and pelvis Overall: spine benign 11/18/2014 None Full Exam - General 1994 Musculoskeletal spine, ribs and pelvis Overall: right hip benign 11/18/2014 None Full Exam - General 1994 Musculoskeletal spine, ribs and pelvis Overall: left hip benign 11/18/2014 None Full Exam - General 1994 Musculoskeletal spine, ribs and pelvis Overall: good posture 11/18/2014 None Full Exam - General 1994 Musculoskeletal spine, ribs and pelvis Sacroiliac joints: tender left sacroiliac joint 11/18/2014 None Full Exam - General 1994 Musculoskeletal spine, ribs and pelvis Sacroiliac joints: tender right sacroiliac joint 11/18/2014 None Full Exam - General 1994 Musculoskeletal spine, ribs and pelvis Inspection: a normal exam 11/18/2014 None Full Exam - General 1994 Musculoskeletal spine, ribs and pelvis Muscle Strength/Tone: a normal exam 11/18/2014 None Full Exam - General 1994 Musculoskeletal spine, ribs and pelvis Stability: a normal exam 11/18/2014 None Full Exam - General 1994 Musculoskeletal spine, ribs and pelvis ROM: a normal exam 11/18/2014 None Full Exam - General 1994 Musculoskeletal spine, ribs and pelvis Ribs: normal chest expansion 11/18/2014 None Full Exam - General 1994 Musculoskeletal lower extremity Overall: knee benign 11/18/2014 None Full Exam - General 1994 Musculoskeletal lower extremity Overall: ankle benign 11/18/2014 None Full Exam - General 1994 Musculoskeletal lower extremity Overall: foot benign 11/18/2014 None Full Exam - General 1994 Musculoskeletal upper extremity Overall: normal shoulder 11/18/2014 None Full Exam - General 1994 Musculoskeletal upper extremity Overall: normal elbow 11/18/2014 None Full Exam - General 1994 Musculoskeletal upper extremity Overall: normal wrist 11/18/2014 None Full Exam - General 1994 Musculoskeletal upper extremity ROM - shoulder: a normal exam 11/18/2014 None Full Exam - General 1994 Musculoskeletal upper extremity Palpation - upper arm: tenderness 11/18/2014 None Full Exam - General 1994 Lymphatic neck nodes Overall: posterior cervical chain benign 11/18/2014 None Full Exam - General 1994 Lymphatic neck nodes Overall: anterior cervical chain benign 11/18/2014 None Full Exam - General 1994 Abdomen abdominal exam Overall: no tenderness 11/18/2014 None Full Exam - General 1994 Abdomen abdominal exam Overall: normal bowel sounds 11/18/2014 None Full Exam - General 1994 Cardiovascular auscultation of heart Overall: regular rate 11/18/2014 None Full Exam - General 1994 Cardiovascular auscultation of heart Overall: normal heart sounds 11/18/2014 None Full Exam - General 1994 Cardiovascular auscultation of heart Overall: no murmurs 11/18/2014 None Full Exam - General 1994 Cardiovascular extremities Edema present: pitting 11/18/2014 None Full Exam - General 1994 Cardiovascular extremities Edema present: severity : 1+ 11/18/2014 None Full Exam - General 1994 Cardiovascular extremities Edema present: bilateral 11/18/2014 None Full Exam - General 1994 Cardiovascular extremities Edema present: to leg 11/18/2014 None Full Exam - General 1994 Respiratory respiratory effort/rhythm Overall: normal rate 11/18/2014 None Full Exam - General 1994 Respiratory auscultation Overall: breath sounds clear bilaterally 11/18/2014 None Full Exam - General 1994 Neck inspection of neck Overall: normal size 11/18/2014 None Full Exam - General 1994 Neck inspection of neck Overall: normal appearance 11/18/2014 None Full Exam - General 1994 Constitutional general appearance Development: well developed 11/18/2014 None Full Exam - General 1994 Constitutional general appearance Overall: in no acute distress 11/18/2014 None Full Exam - General 1994 Constitutional general appearance Overall: well developed 10/23/2014 None Full Exam - General 1994 Constitutional general appearance Overall: in no acute distress 10/23/2014 None Full Exam - General 1994 Constitutional general appearance Overall: well nourished 10/23/2014 None Full Exam - General 1994 Eyes conjunctiva/eyelids Overall: conjunctiva clear 10/23/2014 None Full Exam - General 1994 Eyes pupils and irises Overall: pupils equal, round, reactive to light and accomodation 10/23/2014 None Full Exam - General 1994 Eyes pupils and irises Pupil: round 10/23/2014 None Full Exam - General 1994 Eyes pupils and irises Pupil: reactive to light 10/23/2014 None Full Exam - General 1994 Ears/Nose/Throat otoscopic exam Overall: external auditory canals clear 10/23/2014 None Full Exam - General 1994 Ears/Nose/Throat otoscopic exam Overall: tympanic membranes clear 10/23/2014 None Full Exam - General 1994 Ears/Nose/Throat oral cavity/pharynx/larynx Overall: oral mucosa clear 10/23/2014 None Full Exam - General 1994 Ears/Nose/Throat oral cavity/pharynx/larynx Overall: oropharyngeal mucosa clear 10/23/2014 None Full Exam - General 1994 Ears/Nose/Throat oral cavity/pharynx/larynx Overall: no masses 10/23/2014 None Full Exam - General 1994 Respiratory auscultation Overall: breath sounds clear bilaterally 10/23/2014 None Full Exam - General 1994 Respiratory respiratory effort/rhythm Overall: no retractions 10/23/2014 None Full Exam - General 1994 Respiratory respiratory effort/rhythm Overall: normal rate 10/23/2014 None Full Exam - General 1994 Cardiovascular extremities Edema present: pitting 10/23/2014 None Full Exam - General 1994 Cardiovascular extremities Edema present: severity 1+ - 4+: 2 10/23/2014 None Full Exam - General 1994 Cardiovascular auscultation of heart Overall: regular rate 10/23/2014 None Full Exam - General 1994 Cardiovascular auscultation of heart Overall: normal heart sounds 10/23/2014 None Full Exam - General 1994 Cardiovascular auscultation of heart Overall: no murmurs 10/23/2014 None Full Exam - General 1994 Abdomen abdominal exam Overall: no tenderness 10/23/2014 None Full Exam - General 1994 Abdomen abdominal exam Overall: normal bowel sounds 10/23/2014 None Full Exam - General 1994 Musculoskeletal head and neck Overall: head atraumatic 10/23/2014 None Full Exam - General 1994 Musculoskeletal head and neck Overall: cervical spine benign 10/23/2014 None Full Exam - General 1994 Neurologic gait Overall: no ataxia, no unsteadiness 10/23/2014 None Full Exam - General 1994 Psychiatric orientation/consciousness Overall: oriented to person, place and time 10/23/2014 None Full Exam - General 1994 Psychiatric mood and affect Overall: normal mood and affect 10/23/2014 None Full Exam - General 1994 Integument inspection of skin Location: left arm 10/23/2014 None Full Exam - General 1994 Integument inspection of skin Rash/Lesions: laceration 10/23/2014 Healing dog bite with mod erate red crustation. surrounding tissue erythematous. Full Exam - General 1994 Lymphatic neck nodes Overall: anterior cervical chain benign 10/23/2014 None Full Exam - General 1994 Lymphatic neck nodes Overall: posterior cervical chain benign 10/23/2014 None Full Exam - General 1994 Constitutional general appearance Overall: well developed 10/02/2014 None Full Exam - General 1994 Constitutional general appearance Overall: in no acute distress 10/02/2014 None Full Exam - General 1994 Constitutional general appearance Overall: well nourished 10/02/2014 None Full Exam - General 1994 Eyes conjunctiva/eyelids Overall: conjunctiva clear 10/02/2014 None Full Exam - General 1994 Eyes pupils and irises Overall: pupils equal, round, reactive to light and accomodation 10/02/2014 None Full Exam - General 1994 Eyes pupils and irises Pupil: round 10/02/2014 None Full Exam - General 1994 Eyes pupils and irises Pupil: reactive to light 10/02/2014 None Full Exam - General 1994 Ears/Nose/Throat otoscopic exam Overall: external auditory canals clear 10/02/2014 None Full Exam - General 1994 Ears/Nose/Throat otoscopic exam Overall: tympanic membranes clear 10/02/2014 None Full Exam - General 1994 Ears/Nose/Throat oral cavity/pharynx/larynx Overall: oral mucosa clear 10/02/2014 None Full Exam - General 1994 Ears/Nose/Throat oral cavity/pharynx/larynx Overall: oropharyngeal mucosa clear 10/02/2014 None Full Exam - General 1994 Ears/Nose/Throat oral cavity/pharynx/larynx Overall: no masses 10/02/2014 None Full Exam - General 1994 Respiratory auscultation Overall: breath sounds clear bilaterally 10/02/2014 None Full Exam - General 1994 Respiratory respiratory effort/rhythm Overall: no retractions 10/02/2014 None Full Exam - General 1994 Respiratory respiratory effort/rhythm Overall: normal rate 10/02/2014 None Full Exam - General 1994 Cardiovascular extremities Edema present: pitting 10/02/2014 None Full Exam - General 1994 Cardiovascular extremities Edema present: severity 1+ - 4+: 2 10/02/2014 None Full Exam - General 1994 Cardiovascular auscultation of heart Overall: regular rate 10/02/2014 None Full Exam - General 1994 Cardiovascular auscultation of heart Overall: normal heart sounds 10/02/2014 None Full Exam - General 1994 Cardiovascular auscultation of heart Overall: no murmurs 10/02/2014 None Full Exam - General 1994 Abdomen abdominal exam Overall: no tenderness 10/02/2014 None Full Exam - General 1994 Abdomen abdominal exam Overall: normal bowel sounds 10/02/2014 None Full Exam - General 1994 Musculoskeletal head and neck Overall: head atraumatic 10/02/2014 None Full Exam - General 1994 Musculoskeletal head and neck Overall: cervical spine benign 10/02/2014 None Full Exam - General 1994 Neurologic gait Overall: no ataxia, no unsteadiness 10/02/2014 None Full Exam - General 1994 Psychiatric orientation/consciousness Overall: oriented to person, place and time 10/02/2014 None Full Exam - General 1994 Psychiatric mood and affect Mood: flat 10/02/2014 None Full Exam - General 1994 Psychiatric mood and affect Affect: mood congruent 10/02/2014 None Full Exam - General 1994 Constitutional general appearance Overall: well developed 09/23/2014 None Full Exam - General 1994 Constitutional general appearance Overall: in no acute distress 09/23/2014 None Full Exam - General 1994 Constitutional general appearance Overall: well nourished 09/23/2014 None Full Exam - General 1994 Eyes pupils and irises Overall: pupils equal, round, reactive to light and accomodation 09/23/2014 None Full Exam - General 1994 Eyes pupils and irises Pupil: round 09/23/2014 None Full Exam - General 1994 Eyes pupils and irises Pupil: reactive to light 09/23/2014 None Full Exam - General 1994 Ears/Nose/Throat otoscopic exam Overall: external auditory canals clear 09/23/2014 None Full Exam - General 1994 Ears/Nose/Throat otoscopic exam Overall: tympanic membranes clear 09/23/2014 None Full Exam - General 1994 Ears/Nose/Throat oral cavity/pharynx/larynx Overall: oral mucosa clear 09/23/2014 None Full Exam - General 1994 Ears/Nose/Throat oral cavity/pharynx/larynx Overall: oropharyngeal mucosa clear 09/23/2014 None Full Exam - General 1994 Ears/Nose/Throat oral cavity/pharynx/larynx Overall: no masses 09/23/2014 None Full Exam - General 1994 Respiratory auscultation Overall: breath sounds clear bilaterally 09/23/2014 None Full Exam - General 1994 Respiratory respiratory effort/rhythm Overall: no retractions 09/23/2014 None Full Exam - General 1994 Respiratory respiratory effort/rhythm Overall: normal rate 09/23/2014 None Full Exam - General 1994 Cardiovascular extremities Edema present: pitting 09/23/2014 None Full Exam - General 1994 Cardiovascular extremities Edema present: severity 1+ - 4+: 2 09/23/2014 None Full Exam - General 1994 Cardiovascular auscultation of heart Overall: regular rate 09/23/2014 None Full Exam - General 1994 Cardiovascular auscultation of heart Overall: normal heart sounds 09/23/2014 None Full Exam - General 1994 Cardiovascular auscultation of heart Overall: no murmurs 09/23/2014 None Full Exam - General 1994 Abdomen abdominal exam Overall: no tenderness 09/23/2014 None Full Exam - General 1994 Abdomen abdominal exam Overall: normal bowel sounds 09/23/2014 None Full Exam - General 1994 Integument inspection of skin Location: left leg 09/23/2014 None Full Exam - General 1994 Integument inspection of skin Pigmentation: hemosideran pigment changes 09/23/2014 None Full Exam - General 1994 Neurologic gait Overall: no ataxia, no unsteadiness 09/23/2014 None Full Exam - General 1994 Psychiatric orientation/consciousness Overall: oriented to person, place and time 09/23/2014 None Full Exam - General 1994 Psychiatric mood and affect Affect: mood congruent 09/23/2014 None Full Exam - General 1994 Psychiatric mood and affect Mood: flat 09/23/2014 None Full Exam - General 1994 Musculoskeletal head and neck Overall: head atraumatic 09/23/2014 None Full Exam - General 1994 Musculoskeletal head and neck Overall: cervical spine benign 09/23/2014 None Full Exam - General 1994 Eyes conjunctiva/eyelids Overall: conjunctiva clear 09/23/2014 None Full Exam - ENT Constitutional general appearance Overall: well nourished 07/08/2014 None Full Exam - ENT Constitutional general appearance Overall: well developed 07/08/2014 None Full Exam - ENT Constitutional general appearance Overall: in no acute distress 07/08/2014 None Full Exam - ENT Ears/Nose/Throat otoscopic exam Overall: external auditory canals normal 07/08/2014 None Full Exam - ENT Ears/Nose/Throat otoscopic exam Overall: tympanic membranes normal 07/08/2014 None Full Exam - ENT Ears/Nose/Throat oropharynx Overall: oral mucosa clear 07/08/2014 None Full Exam - ENT Face and Head palpation Overall: no sinus tenderness 07/08/2014 None Full Exam - ENT Respiratory inspection Overall: no retractions 07/08/2014 None Full Exam - ENT Respiratory inspection Overall: normal rate None Full Exam - ENT Respiratory auscultation Overall: breath sounds clear bilater ally 07/08/2014 None Full Exam - ENT Cardiovascular auscultation of heart Overall: regular rate 07/08/2014 None Full Exam - ENT Cardiovascular auscultation of heart Overall: normal heart sounds 07/08/2014 None Full Exam - ENT Lymphatic palpation of lymph nodes Overall: anterior cervical chain benign 07/08/2014 None Full Exam - ENT Lymphatic palpation of lymph nodes Overall: posterior cervical chain benign 07/08/2014 None Full Exam - ENT Neurologic orientation Overall: oriented to person, place a nd time 07/08/2014 None Full Exam - ENT Cardiovascular examination of vasculature Edema: pitting 07/08/2014 trace to ankles Full Exam - General 1994 Constitutional general appearance Overall: well developed 05/31/2014 None Full Exam - General 1994 Constitutional general appearance Overall: in no acute distress 05/31/2014 None Full Exam - General 1994 Constitutional general appearance Overall: well nourished 05/31/2014 None Full Exam - General 1994 Eyes pupils and irises Overall: pupils equal, round, reactive to light and accomodation 05/31/2014 None Full Exam - General 1994 Eyes pupils and irises Pupil: round 05/31/2014 None Full Exam - General 1994 Eyes pupils and irises Pupil: reactive to light 05/31/2014 None Full Exam - General 1994 Ears/Nose/Throat otoscopic exam Overall: external auditory canals clear 05/31/2014 None Full Exam - General 1994 Ears/Nose/Throat otoscopic exam Overall: tympanic membranes clear 05/31/2014 None Full Exam - General 1994 Ears/Nose/Throat oral cavity/pharynx/larynx Overall: oral mucosa clear 05/31/2014 None Full Exam - General 1994 Ears/Nose/Throat oral cavity/pharynx/larynx Overall: oropharyngeal mucosa clear 05/31/2014 None Full Exam - General 1994 Ears/Nose/Throat oral cavity/pharynx/larynx Overall: no masses 05/31/2014 None Full Exam - General 1994 Respiratory auscultation Overall: breath sounds clear bilaterally 05/31/2014 None Full Exam - General 1994 Respiratory respiratory effort/rhythm Overall: no retractions 05/31/2014 None Full Exam - General 1994 Respiratory respiratory effort/rhythm Overall: normal rate 05/31/2014 None Full Exam - General 1994 Cardiovascular extremities Edema present: pitting 05/31/2014 None Full Exam - General 1994 Cardiovascular extremities Edema present: severity 1+ - 4+: 2 05/31/2014 None Full Exam - General 1994 Cardiovascular auscultation of heart Overall: regular rate 05/31/2014 None Full Exam - General 1994 Cardiovascular auscultation of heart Overall: normal heart sounds 05/31/2014 None Full Exam - General 1994 Cardiovascular auscultation of heart Overall: no murmurs 05/31/2014 None Full Exam - General 1994 Abdomen abdominal exam Overall: no tenderness 05/31/2014 None Full Exam - General 1994 Abdomen abdominal exam Overall: normal bowel sounds 05/31/2014 None Full Exam - General 1994 Integument inspection of skin Location: left leg 05/31/2014 None Full Exam - General 1994 Integument inspection of skin Pigmentation: hemosideran pigment changes 05/31/2014 None Full Exam - General 1994 Neurologic gait Overall: no ataxia, no unsteadiness 05/31/2014 None Full Exam - General 1994 Psychiatric orientation/consciousness Overall: oriented to person, place and time 05/31/2014 None Full Exam - General 1994 Psychiatric mood and affect Mood: angry 05/31/2014 None Full Exam - General 1994 Psychiatric mood and affect Affect: mood congruent 05/31/2014 None Full Exam - General 1994 Constitutional general appearance Overall: well developed 04/18/2014 None Full Exam - General 1994 Constitutional general appearance Overall: in no acute distress 04/18/2014 None Full Exam - General 1994 Constitutional general appearance Overall: well nourished 04/18/2014 None Full Exam - General 1994 Eyes pupils and irises Overall: pupils equal, round, reactive to light and accomodation 04/18/2014 None Full Exam - General 1994 Eyes pupils and irises Pupil: round 04/18/2014 None Full Exam - General 1994 Eyes pupils and irises Pupil: reactive to light 04/18/2014 None Full Exam - General 1994 Ears/Nose/Throat otoscopic exam Overall: external auditory canals clear 04/18/2014 None Full Exam - General 1994 Ears/Nose/Throat otoscopic exam Overall: tympanic membranes clear 04/18/2014 None Full Exam - General 1994 Ears/Nose/Throat oral cavity/pharynx/larynx Overall: oral mucosa clear 04/18/2014 None Full Exam - General 1994 Ears/Nose/Throat oral cavity/pharynx/larynx Overall: oropharyngeal mucosa clear 04/18/2014 None Full Exam - General 1994 Ears/Nose/Throat oral cavity/pharynx/larynx Overall: no masses 04/18/2014 None Full Exam - General 1994 Respiratory auscultation Overall: breath sounds clear bilaterally 04/18/2014 None Full Exam - General 1994 Respiratory respiratory effort/rhythm Overall: no retractions 04/18/2014 None Full Exam - General 1994 Respiratory respiratory effort/rhythm Overall: normal rate 04/18/2014 None Full Exam - General 1994 Cardiovascular extremities Edema present: pitting 04/18/2014 None Full Exam - General 1994 Cardiovascular extremities Edema present: severity 1+ - 4+: 2 04/18/2014 None Full Exam - General 1994 Cardiovascular auscultation of heart Overall: regular rate 04/18/2014 None Full Exam - General 1994 Cardiovascular auscultation of heart Overall: normal heart sounds 04/18/2014 None Full Exam - General 1994 Cardiovascular auscultation of heart Overall: no murmurs 04/18/2014 None Full Exam - General 1994 Abdomen abdominal exam Overall: no tenderness 04/18/2014 None Full Exam - General 1994 Abdomen abdominal exam Overall: normal bowel sounds 04/18/2014 None Full Exam - General 1994 Musculoskeletal spine, ribs and pelvis Posture: kyphosis 04/18/2014 None Full Exam - General 1994 Musculoskeletal spine, ribs and pelvis Spine: decreased flexion 04/18/2014 None Full Exam - General 1994 Musculoskeletal spine, ribs and pelvis Spine: decreased extension 04/18/2014 tender at shoulder blades/upper thoracic region - between spine and scapula - muscles tight with trigger points identified. Full Exam - General 1994 Integument inspection of skin Location: right arm 04/18/2014 scabbed lesion - healing - recommended pt to use neosporin over the site, keep covered during the day Full Exam - General 1994 Integument inspection of skin Location: left leg 04/18/2014 None Full Exam - General 1994 Integument inspection of skin Pigmentation: hemosideran pigment changes 04/18/2014 None Full Exam - General 1994 Neurologic gait Overall: no ataxia, no unsteadiness 04/18/2014 None Full Exam - General 1994 Psychiatric orientation/consciousness Overall: oriented to person, place and time 04/18/2014 None Full Exam - General 1994 Psychiatric mood and affect Overall: normal mood and affect 04/18/2014 None Full Exam - General 1994 Constitutional general appearance Overall: well developed 03/05/2014 None Full Exam - General 1994 Constitutional general appearance Overall: in no acute distress 03/05/2014 None Full Exam - General 1994 Constitutional general appearance Overall: well nourished 03/05/2014 None Full Exam - General 1994 Eyes pupils and irises Overall: pupils equal, round, reactive to light and accomodation 03/05/2014 None Full Exam - General 1994 Eyes pupils and irises Pupil: round 03/05/2014 None Full Exam - General 1994 Eyes pupils and irises Pupil: reactive to light 03/05/2014 None Full Exam - General 1994 Ears/Nose/Throat otoscopic exam Overall: external auditory canals clear 03/05/2014 None Full Exam - General 1994 Ears/Nose/Throat otoscopic exam Overall: tympanic membranes clear 03/05/2014 None Full Exam - General 1994 Ears/Nose/Throat oral cavity/pharynx/larynx Overall: oral mucosa clear 03/05/2014 None Full Exam - General 1994 Ears/Nose/Throat oral cavity/pharynx/larynx Overall: oropharyngeal mucosa clear 03/05/2014 None Full Exam - General 1994 Ears/Nose/Throat oral cavity/pharynx/larynx Overall: no masses 03/05/2014 None Full Exam - General 1994 Respiratory auscultation Overall: breath sounds clear bilaterally 03/05/2014 None Full Exam - General 1994 Respiratory respiratory effort/rhythm Overall: no retractions 03/05/2014 None Full Exam - General 1994 Respiratory respiratory effort/rhythm Overall: normal rate 03/05/2014 None Full Exam - General 1994 Cardiovascular extremities Edema present: pitting 03/05/2014 None Full Exam - General 1994 Cardiovascular extremities Edema present: severity 1+ - 4+: 2 03/05/2014 None Full Exam - General 1994 Cardiovascular auscultation of heart Overall: regular rate 03/05/2014 None Full Exam - General 1994 Cardiovascular auscultation of heart Overall: normal heart sounds 03/05/2014 None Full Exam - General 1994 Cardiovascular auscultation of heart Overall: no murmurs 03/05/2014 None Full Exam - General 1994 Abdomen abdominal exam Overall: no tenderness 03/05/2014 None Full Exam - General 1994 Abdomen abdominal exam Overall: normal bowel sounds 03/05/2014 None Full Exam - General 1994 Integument inspection of skin Location: left leg 03/05/2014 None Full Exam - General 1994 Integument inspection of skin Pigmentation: hemosideran pigment changes 03/05/2014 None Full Exam - General 1994 Neurologic gait Overall: no ataxia, no unsteadiness 03/05/2014 None Full Exam - General 1994 Psychiatric orientation/consciousness Overall: oriented to person, place and time 03/05/2014 None Full Exam - General 1994 Psychiatric mood and affect Overall: normal mood and affect 03/05/2014 None Full Exam - General 1994 Integument inspection of skin Location: right arm 03/05/2014 scabbed lesion - healing - recommended pt to use neosporin over the site, keep covered during the day Full Exam - General 1994 Musculoskeletal spine, ribs and pelvis Posture: kyphosis 03/05/2014 None Full Exam - General 1994 Musculoskeletal spine, ribs and pelvis Spine: decreased flexion 03/05/2014 None Full Exam - General 1994 Musculoskeletal spine, ribs and pelvis Spine: decreased extension 03/05/2014 tender at shoulder blades/upper thoracic region - between spine and scapula - muscles tight with trigger points identified. Full Exam - General 1994 Constitutional general appearance Overall: well developed 01/29/2014 None Full Exam - General 1994 Constitutional general appearance Overall: in no acute distress 01/29/2014 None Full Exam - General 1994 Constitutional general appearance Overall: well nourished 01/29/2014 None Full Exam - General 1994 Eyes pupils and irises Overall: pupils equal, round, reactive to light and accomodation 01/29/2014 None Full Exam - General 1994 Eyes pupils and irises Pupil: round 01/29/2014 None Full Exam - General 1994 Eyes pupils and irises Pupil: reactive to light 01/29/2014 None Full Exam - General 1994 Ears/Nose/Throat otoscopic exam Overall: external auditory canals clear 01/29/2014 None Full Exam - General 1994 Ears/Nose/Throat otoscopic exam Overall: tympanic membranes clear 01/29/2014 None Full Exam - General 1994 Ears/Nose/Throat oral cavity/pharynx/larynx Overall: oral mucosa clear 01/29/2014 None Full Exam - General 1994 Ears/Nose/Throat oral cavity/pharynx/larynx Overall: oropharyngeal mucosa clear 01/29/2014 None Full Exam - General 1994 Ears/Nose/Throat oral cavity/pharynx/larynx Overall: no masses 01/29/2014 None Full Exam - General 1994 Respiratory auscultation Overall: breath sounds clear bilaterally 01/29/2014 None Full Exam - General 1994 Respiratory respiratory effort/rhythm Overall: no retractions 01/29/2014 None Full Exam - General 1994 Respiratory respiratory effort/rhythm Overall: normal rate 01/29/2014 None Full Exam - General 1994 Cardiovascular extremities Edema present: pitting 01/29/2014 None Full Exam - General 1994 Cardiovascular extremities Edema present: severity 1+ - 4+: 2 01/29/2014 None Full Exam - General 1994 Cardiovascular auscultation of heart Overall: regular rate 01/29/2014 None Full Exam - General 1994 Cardiovascular auscultation of heart Overall: normal heart sounds 01/29/2014 None Full Exam - General 1994 Cardiovascular auscultation of heart Overall: no murmurs 01/29/2014 None Full Exam - General 1994 Abdomen abdominal exam Overall: no tenderness 01/29/2014 None Full Exam - General 1994 Abdomen abdominal exam Overall: normal bowel sounds 01/29/2014 None Full Exam - General 1994 Integument inspection of skin Location: left leg 01/29/2014 None Full Exam - General 1994 Integument inspection of skin Pigmentation: hemosideran pigment changes 01/29/2014 None Full Exam - General 1994 Neurologic gait Overall: no ataxia, no unsteadiness 01/29/2014 None Full Exam - General 1994 Psychiatric orientation/consciousness Overall: oriented to person, place and time 01/29/2014 None Full Exam - General 1994 Psychiatric mood and affect Overall: normal mood and affect 01/29/2014 None Full Exam - General 1994 Constitutional general appearance Overall: well developed 10/23/2013 None Full Exam - General 1994 Constitutional general appearance Overall: in no acute distress 10/23/2013 None Full Exam - General 1994 Constitutional general appearance Overall: well nourished 10/23/2013 None Full Exam - General 1994 Eyes pupils and irises Overall: pupils equal, round, reactive to light and accomodation 10/23/2013 None Full Exam - General 1994 Respiratory auscultation Overall: breath sounds clear bilaterally 10/23/2013 None Full Exam - General 1994 Respiratory respiratory effort/rhythm Overall: no retractions 10/23/2013 None Full Exam - General 1994 Respiratory respiratory effort/rhythm Overall: normal rate 10/23/2013 None Full Exam - General 1994 Cardiovascular extremities Edema present: pitting 10/23/2013 None Full Exam - General 1994 Cardiovascular extremities Edema present: severity 1+ - 4+: 2 10/23/2013 None Full Exam - General 1994 Cardiovascular auscultation of heart Overall: regular rate 10/23/2013 None Full Exam - General 1994 Cardiovascular auscultation of heart Overall: normal heart sounds 10/23/2013 None Full Exam - General 1994 Cardiovascular auscultation of heart Overall: no murmurs 10/23/2013 None Full Exam - General 1994 Musculoskeletal lower extremity Inspection - lower leg: swelling 10/23/2013 None Full Exam - General 1994 Musculoskeletal lower extremity Palpation - lower leg: normal on palpation 10/23/2013 None Full Exam - General 1994 Musculoskeletal lower extremity Muscle Strength/Tone - lower leg: calf: normal bulk 10/23/2013 None Full Exam - General 1994 Musculoskeletal lower extremity Inspection - ankle: swelling diffusely 10/23/2013 None Full Exam - General 1994 Musculoskeletal lower extremity Palpation - ankle: a normal exam 10/23/2013 None Full Exam - General 1994 Musculoskeletal lower extremity ROM - ankle: a normal exam 10/23/2013 None Full Exam - General 1994 Musculoskeletal lower extremity Stability - ankle: a normal exam 10/23/2013 None Full Exam - General 1994 Musculoskeletal lower extremity Muscle Strength/Tone - ankle: a normal exam 10/23/2013 None Full Exam - General 1994 Integument inspection of skin Location: left leg 10/23/2013 None Full Exam - General 1994 Integument inspection of skin Pigmentation: hemosideran pigment changes 10/23/2013 None Full Exam - General 1994 Psychiatric orientation/consciousness Overall: oriented to person, place and time 10/23/2013 None Full Exam - General 1994 Eyes pupils and irises Pupil: round 10/23/2013 None Full Exam - General 1994 Eyes pupils and irises Pupil: reactive to light 10/23/2013 None Full Exam - General 1994 Ears/Nose/Throat otoscopic exam Overall: external auditory canals clear 10/23/2013 None Full Exam - General 1994 Ears/Nose/Throat otoscopic exam Overall: tympanic membranes clear 10/23/2013 None Full Exam - General 1994 Ears/Nose/Throat oral cavity/pharynx/larynx Overall: oral mucosa clear 10/23/2013 None Full Exam - General 1994 Ears/Nose/Throat oral cavity/pharynx/larynx Overall: oropharyngeal mucosa clear 10/23/2013 None Full Exam - General 1994 Ears/Nose/Throat oral cavity/pharynx/larynx Overall: no masses 10/23/2013 None Full Exam - General 1994 Abdomen abdominal exam Overall: no tenderness 10/23/2013 None Full Exam - General 1994 Abdomen abdominal exam Overall: normal bowel sounds 10/23/2013 None Full Exam - General 1994 Musculoskeletal head and neck Overall: head atraumatic 10/23/2013 None Full Exam - General 1994 Musculoskeletal head and neck Overall: cervical spine benign 10/23/2013 None Full Exam - General 1994 Neurologic gait Overall: no ataxia, no unsteadiness 10/23/2013 None Full Exam - General 1994 Psychiatric mood and affect Overall: normal mood and affect 10/23/2013 None Full Exam - Dermatology Constitutional general appearance Overall: well nourished 10/11/2013 None Full Exam - Dermatology Constitutional general appearance Overall: well developed 10/11/2013 None Full Exam - Dermatology Constitutional general appearance Overall: in no acute distress 10/11/2013 None Full Exam - Dermatology Constitutional general appearance Overall: of normal body habitus 10/11/2013 None Full Exam - Dermatology Constitutional general appearance Overall: well groomed 10/11/2013 None Full Exam - Dermatology Psychiatric orientation Overall: oriented to person, place and time 10/11/2013 None Full Exam - Dermatology Integument insp & palp - chest/axillae Lesion: patch 10/11/2013 None Full Exam - Dermatology Integument insp & palp - chest/axillae Distribution: localized 10/11/2013 None Full Exam - Dermatology Integument insp & palp - chest/axillae Location: on the mid chest 10/11/2013 between breasts-spreading under left and right breasts Full Exam - Dermatology Integument insp & palp - chest/axillae Color: erythematous 10/11/2013 None Full Exam - General 1994 Constitutional general appearance Overall: well developed 09/17/2013 None Full Exam - General 1994 Constitutional general appearance Overall: in no acute distress 09/17/2013 None Full Exam - General 1994 Constitutional general appearance Overall: well nourished 09/17/2013 None Full Exam - General 1994 Cardiovascular auscultation of heart Overall: regular rate 09/17/2013 None Full Exam - General 1994 Cardiovascular auscultation of heart Overall: normal heart sounds 09/17/2013 None Full Exam - General 1994 Cardiovascular auscultation of heart Overall: no murmurs 09/17/2013 None Full Exam - General 1994 Musculoskeletal lower extremity Inspection - lower leg: swelling 09/17/2013 None Full Exam - General 1994 Musculoskeletal lower extremity Palpation - lower leg: normal on palpation 09/17/2013 None Full Exam - General 1994 Musculoskeletal lower extremity Muscle Strength/Tone - lower leg: calf: normal bulk 09/17/2013 None Full Exam - General 1994 Musculoskeletal lower extremity Inspection - ankle: swelling diffusely 09/17/2013 None Full Exam - General 1994 Musculoskeletal lower extremity Palpation - ankle: a normal exam 09/17/2013 None Full Exam - General 1994 Musculoskeletal lower extremity ROM - ankle: a normal exam 09/17/2013 None Full Exam - General 1994 Musculoskeletal lower extremity Stability - ankle: a normal exam 09/17/2013 None Full Exam - General 1994 Musculoskeletal lower extremity Muscle Strength/Tone - ankle: a normal exam 09/17/2013 None Full Exam - General 1994 Integument inspection of skin Location: left leg 09/17/2013 None Full Exam - General 1994 Integument inspection of skin Pigmentation: hemosideran pigment changes 09/17/2013 None Full Exam - General 1994 Psychiatric orientation/consciousness Overall: oriented to person, place and time 09/17/2013 None Full Exam - General 1994 Eyes pupils and irises Overall: pupils equal, round, reactive to light and accomodation 09/17/2013 None Full Exam - General 1994 Respiratory respiratory effort/rhythm Overall: normal rate 09/17/2013 None Full Exam - General 1994 Respiratory respiratory effort/rhythm Overall: no retractions 09/17/2013 None Full Exam - General 1994 Respiratory auscultation Overall: breath sounds clear bilaterally 09/17/2013 None Full Exam - General 1994 Cardiovascular extremities Edema present: pitting 09/17/2013 None Full Exam - General 1994 Cardiovascular extremities Edema present: severity 1+ - 4+: 2 09/17/2013 None Full Exam - General 1994 Constitutional general appearance Overall: well developed 08/27/2013 None Full Exam - General 1994 Constitutional general appearance Overall: in no acute distress 08/27/2013 None Full Exam - General 1994 Constitutional general appearance Overall: well nourished 08/27/2013 None Full Exam - General 1994 Cardiovascular auscultation of heart Overall: regular rate 08/27/2013 None Full Exam - General 1994 Cardiovascular auscultation of heart Overall: normal heart sounds 08/27/2013 None Full Exam - General 1994 Cardiovascular auscultation of heart Overall: no murmurs 08/27/2013 None Full Exam - General 1994 Psychiatric orientation/consciousness Overall: oriented to person, place and time 08/27/2013 None Full Exam - General 1994 Musculoskeletal lower extremity Inspection - lower leg: swelling 08/27/2013 None Full Exam - General 1994 Musculoskeletal lower extremity Palpation - lower leg: normal on palpation 08/27/2013 None Full Exam - General 1994 Musculoskeletal lower extremity Muscle Strength/Tone - lower leg: calf: normal bulk 08/27/2013 None Full Exam - General 1994 Musculoskeletal lower extremity Inspection - ankle: swelling diffusely 08/27/2013 None Full Exam - General 1994 Musculoskeletal lower extremity Palpation - ankle: a normal exam 08/27/2013 None Full Exam - General 1994 Musculoskeletal lower extremity ROM - ankle: a normal exam 08/27/2013 None Full Exam - General 1994 Musculoskeletal lower extremity Stability - ankle: a normal exam 08/27/2013 None Full Exam - General 1994 Musculoskeletal lower extremity Muscle Strength/Tone - ankle: a normal exam 08/27/2013 None Full Exam - General 1994 Integument inspection of skin Location: left leg 08/27/2013 None Full Exam - General 1994 Integument inspection of skin Pigmentation: hemosideran pigment changes 08/27/2013 None Full Exam - General 1994 Constitutional general appearance Overall: well developed 08/20/2013 None Full Exam - General 1994 Constitutional general appearance Overall: in no acute distress 08/20/2013 None Full Exam - General 1994 Constitutional general appearance Overall: well nourished 08/20/2013 None Full Exam - General 1994 Eyes pupils and irises Pupil: round 08/20/2013 None Full Exam - General 1994 Eyes pupils and irises Pupil: reactive to light 08/20/2013 None Full Exam - General 1994 Ears/Nose/Throat otoscopic exam Overall: external auditory canals clear 08/20/2013 None Full Exam - General 1994 Ears/Nose/Throat otoscopic exam Overall: tympanic membranes clear 08/20/2013 None Full Exam - General 1995 Ears/Nose/Throat oral cavity/pharynx/larynx Overall: oral mucosa clear 08/20/2013 None Full Exam - General 1995 Ears/Nose/Throat oral cavity/pharynx/larynx Overall: oropharyngeal mucosa clear 08/20/2013 None Full Exam - General 1995 Ears/Nose/Throat oral cavity/pharynx/larynx Overall: no masses 08/20/2013 None Full Exam - General 1994 Respiratory auscultation Overall: breath sounds clear bilaterally 08/20/2013 None Full Exam - General 1994 Respiratory respiratory effort/rhythm Overall: no retractions 08/20/2013 None Full Exam - General 1994 Respiratory respiratory effort/rhythm Overall: normal rate 08/20/2013 None Full Exam - General 1994 Cardiovascular auscultation of heart Overall: regular rate 08/20/2013 None Full Exam - General 1994 Cardiovascular auscultation of heart Overall: normal heart sounds 08/20/2013 None Full Exam - General 1994 Cardiovascular auscultation of heart Overall: no murmurs 08/20/2013 None Full Exam - General 1994 Abdomen abdominal exam Overall: no tenderness 08/20/2013 None Full Exam - General 1994 Abdomen abdominal exam Overall: normal bowel sounds 08/20/2013 None Full Exam - General 1994 Musculoskeletal head and neck Overall: head atraumatic 08/20/2013 None Full Exam - General 1994 Musculoskeletal head and neck Overall: cervical spine benign 08/20/2013 None Full Exam - General 1994 Neurologic gait Overall: no ataxia, no unsteadiness 08/20/2013 None Full Exam - General 1994 Psychiatric orientation/consciousness Overall: oriented to person, place and time 08/20/2013 None Full Exam - General 1994 Psychiatric mood and affect Overall: normal mood and affect 08/20/2013 None Full Exam - General 1994 Constitutional general appearance Overall: well developed 07/10/2013 None Full Exam - General 1994 Constitutional general appearance Overall: in no acute distress 07/10/2013 None Full Exam - General 1994 Constitutional general appearance Overall: well nourished 07/10/2013 None Full Exam - General 1994 Eyes pupils and irises Pupil: round 07/10/2013 None Full Exam - General 1994 Eyes pupils and irises Pupil: reactive to light 07/10/2013 None Full Exam - General 1994 Ears/Nose/Throat otoscopic exam Overall: external auditory canals clear 07/10/2013 None Full Exam - General 1994 Ears/Nose/Throat otoscopic exam Overall: tympanic membranes clear 07/10/2013 None Full Exam - General 1994 Ears/Nose/Throat oral cavity/pharynx/larynx Overall: oral mucosa clear 07/10/2013 None Full Exam - General 1994 Ears/Nose/Throat oral cavity/pharynx/larynx Overall: oropharyngeal mucosa clear 07/10/2013 None Full Exam - General 1994 Ears/Nose/Throat oral cavity/pharynx/larynx Overall: no masses 07/10/2013 None Full Exam - General 1994 Respiratory auscultation Overall: breath sounds clear bilaterally 07/10/2013 None Full Exam - General 1994 Respiratory respiratory effort/rhythm Overall: no retractions 07/10/2013 None Full Exam - General 1994 Respiratory respiratory effort/rhythm Overall: normal rate 07/10/2013 None Full Exam - General 1994 Cardiovascular auscultation of heart Overall: regular rate 07/10/2013 None Full Exam - General 1994 Cardiovascular auscultation of heart Overall: normal heart sounds 07/10/2013 None Full Exam - General 1994 Cardiovascular auscultation of heart Overall: no murmurs 07/10/2013 None Full Exam - General 1994 Abdomen abdominal exam Overall: no tenderness 07/10/2013 None Full Exam - General 1994 Abdomen abdominal exam Overall: normal bowel sounds 07/10/2013 None Full Exam - General 1994 Musculoskeletal head and neck Overall: head atraumatic 07/10/2013 None Full Exam - General 1994 Musculoskeletal head and neck Overall: cervical spine benign 07/10/2013 None Full Exam - General 1994 Neurologic gait Overall: no ataxia, no unsteadiness 07/10/2013 None Full Exam - General 1994 Psychiatric orientation/consciousness Overall: oriented to person, place and time 07/10/2013 None Full Exam - General 1994 Psychiatric mood and affect Overall: normal mood and affect 07/10/2013 None Full Exam - General 1994 Abdomen abdominal exam Overall: normal bowel sounds 03/20/2013 None Full Exam - General 1994 Psychiatric orientation/consciousness Overall: oriented to person, place and time 03/20/2013 None Full Exam - General 1994 Lymphatic neck nodes Overall: anterior cervical chain benign 03/20/2013 None Full Exam - General 1994 Lymphatic neck nodes Overall: posterior cervical chain benign 03/20/2013 None Full Exam - General 1994 Eyes conjunctiva/eyelids Overall: cornea clear 03/20/2013 None Full Exam - General 1994 Ears/Nose/Throat oral cavity/pharynx/larynx Overall: oropharyngeal mucosa clear 03/20/2013 None Full Exam - General 1995 Ears/Nose/Throat oral cavity/pharynx/larynx Overall: no masses 03/20/2013 None Full Exam - General 1995 Ears/Nose/Throat oral cavity/pharynx/larynx Overall: oral mucosa clear 03/20/2013 None Full Exam - General 1995 Ears/Nose/Throat lips/teeth/gingiva Overall: benign gingiva 03/20/2013 None Full Exam - General 1995 Ears/Nose/Throat lips/teeth/gingiva Overall: no masses 03/20/2013 None Full Exam - General 1995 Ears/Nose/Throat lips/teeth/gingiva Overall: normal dentition 03/20/2013 None Full Exam - General 1995 Ears/Nose/Throat lips/teeth/gingiva Overall: benign lips 03/20/2013 None Full Exam - General 1994 Respiratory respiratory effort/rhythm Overall: normal rate 03/20/2013 None Full Exam - General 1994 Respiratory respiratory effort/rhythm Overall: no retractions 03/20/2013 None Full Exam - General 1994 Respiratory auscultation Overall: breath sounds clear bilaterally 03/20/2013 None Full Exam - General 1994 Cardiovascular auscultation of heart Overall: regular rate 03/20/2013 None Full Exam - General 1994 Cardiovascular auscultation of heart Overall: normal heart sounds 03/20/2013 None Full Exam - General 1994 Cardiovascular auscultation of heart Overall: no murmurs 03/20/2013 None Full Exam - General 1994 Abdomen abdominal exam Overall: no tenderness 03/20/2013 None Full Exam - General 1994 Constitutional general appearance Overall: well nourished 03/20/2013 None Full Exam - General 1994 Constitutional general appearance Overall: well developed 03/20/2013 None Full Exam - General 1994 Constitutional general appearance Overall: in no acute distress 03/20/2013 None Full Exam - General 1994 Eyes pupils and irises Overall: pupils equal, round, reactive to light and accomodation 03/20/2013 None Full Exam - General 1994 Eyes conjunctiva/eyelids Overall: conjunctiva clear 03/20/2013 None Full Exam - General 1994 Eyes conjunctiva/eyelids Overall: eyelids normal 03/20/2013 None Full Exam - General 1994 Constitutional general appearance Overall: well developed 03/07/2013 None Full Exam - General 1994 Constitutional general appearance Overall: in no acute distress 03/07/2013 None Full Exam - General 1995 Constitutional general appearance Overall: well nourished 03/07/2013 None Full Exam - General 1994 Eyes pupils and irises Pupil: round 03/07/2013 None Full Exam - General 1994 Eyes pupils and irises Pupil: reactive to light 03/07/2013 None Full Exam - General 1995 Ears/Nose/Throat otoscopic exam Overall: external auditory canals clear 03/07/2013 None Full Exam - General 1995 Ears/Nose/Throat otoscopic exam Overall: tympanic membranes clear 03/07/2013 None Full Exam - General 1995 Ears/Nose/Throat oral cavity/pharynx/larynx Overall: oral mucosa clear 03/07/2013 None Full Exam - General 1995 Ears/Nose/Throat oral cavity/pharynx/larynx Overall: oropharyngeal mucosa clear 03/07/2013 None Full Exam - General 1994 Ears/Nose/Throat oral cavity/pharynx/larynx Overall: no masses 03/07/2013 None Full Exam - General 1994 Respiratory auscultation Overall: breath sounds clear bilaterally 03/07/2013 None Full Exam - General 1994 Respiratory respiratory effort/rhythm Overall: no retractions 03/07/2013 None Full Exam - General 1994 Respiratory respiratory effort/rhythm Overall: normal rate 03/07/2013 None Full Exam - General 1994 Cardiovascular auscultation of heart Overall: regular rate 03/07/2013 None Full Exam - General 1994 Cardiovascular auscultation of heart Overall: normal heart sounds 03/07/2013 None Full Exam - General 1994 Cardiovascular auscultation of heart Overall: no murmurs 03/07/2013 None Full Exam - General 1994 Abdomen abdominal exam Overall: no tenderness 03/07/2013 None Full Exam - General 1994 Abdomen abdominal exam Overall: normal bowel sounds 03/07/2013 None Full Exam - General 1994 Musculoskeletal head and neck Overall: head atraumatic 03/07/2013 None Full Exam - General 1994 Musculoskeletal head and neck Overall: cervical spine benign 03/07/2013 None Full Exam - General 1994 Neurologic gait Overall: no ataxia, no unsteadiness 03/07/2013 None Full Exam - General 1994 Psychiatric orientation/consciousness Overall: oriented to person, place and time 03/07/2013 None Full Exam - General 1994 Psychiatric mood and affect Overall: normal mood and affect 03/07/2013 None Full Exam - General 1994 Constitutional general appearance Overall: well developed 01/22/2013 None Full Exam - General 1995 Constitutional general appearance Overall: in no acute distress 01/22/2013 None Full Exam - General 1995 Constitutional general appearance Overall: well nourished 01/22/2013 None Full Exam - General 1995 Eyes pupils and irises Pupil: round 01/22/2013 None Full Exam - General 1995 Eyes pupils and irises Pupil: reactive to light 01/22/2013 None Full Exam - General 1995 Ears/Nose/Throat otoscopic exam Overall: external auditory canals clear 01/22/2013 None Full Exam - General 1995 Ears/Nose/Throat otoscopic exam Overall: tympanic membranes clear 01/22/2013 None Full Exam - General 1995 Ears/Nose/Throat oral cavity/pharynx/larynx Overall: oral mucosa clear 01/22/2013 None Full Exam - General 1995 Ears/Nose/Throat oral cavity/pharynx/larynx Overall: oropharyngeal mucosa clear 01/22/2013 None Full Exam - General 1995 Ears/Nose/Throat oral cavity/pharynx/larynx Overall: no masses 01/22/2013 None Full Exam - General 1995 Respiratory auscultation Overall: breath sounds clear bilaterally 01/22/2013 None Full Exam - General 1995 Respiratory respiratory effort/rhythm Overall: no retractions 01/22/2013 None Full Exam - General 1995 Respiratory respiratory effort/rhythm Overall: normal rate 01/22/2013 None Full Exam - General 1995 Cardiovascular auscultation of heart Overall: regular rate 01/22/2013 None Full Exam - General 1995 Cardiovascular auscultation of heart Overall: normal heart sounds 01/22/2013 None Full Exam - General 1995 Cardiovascular auscultation of heart Overall: no murmurs 01/22/2013 None Full Exam - General 1994 Abdomen abdominal exam Overall: no tenderness 01/22/2013 None Full Exam - General 1995 Abdomen abdominal exam Overall: normal bowel sounds 01/22/2013 None Full Exam - General 1995 Musculoskeletal head and neck Overall: head atraumatic 01/22/2013 None Full Exam - General 1995 Musculoskeletal head and neck Overall: cervical spine benign 01/22/2013 None Full Exam - General 1994 Neurologic gait Overall: no ataxia, no unsteadiness 01/22/2013 None Full Exam - General 1994 Psychiatric orientation/consciousness Overall: oriented to person, place and time 01/22/2013 None Full Exam - General 1994 Psychiatric mood and affect Overall: normal mood and affect 01/22/2013 None Full Exam - ENT Constitutional general appearance Overall: well nourished 08/22/2012 None Full Exam - ENT Constitutional general appearance Overall: well developed 08/22/2012 None Full Exam - ENT Constitutional general appearance Overall: in no acute distress 08/22/2012 None Full Exam - ENT Ears/Nose/Throat otoscopic exam Overall: external auditory canals normal 08/22/2012 None Full Exam - ENT Ears/Nose/Throat otoscopic exam Overall: tympanic membranes normal 08/22/2012 None Full Exam - ENT Ears/Nose/Throat oropharynx Overall: oral mucosa clear 08/22/2012 None Full Exam - ENT Face and Head palpation Overall: no sinus tenderness 08/22/2012 None Full Exam - ENT Respiratory inspection Overall: no retractions 08/22/2012 None Full Exam - ENT Respiratory inspection Overall: normal rate 01/2013 None Full Exam - ENT Respiratory auscultation Overall: breath sounds clear bilater ally 08/22/2012 None Full Exam - ENT Cardiovascular auscultation of heart Overall: regular rate 08/22/2012 None Full Exam - ENT Cardiovascular auscultation of heart Overall: normal heart sounds 08/22/2012 None Full Exam - ENT Lymphatic palpation of lymph nodes Overall: anterior cervical chain benign 08/22/2012 None Full Exam - ENT Lymphatic palpation of lymph nodes Overall: posterior cervical chain benign 08/22/2012 None Full Exam - ENT Neurologic orientation Overall: oriented to person, place a nd time 08/22/2012 None Full Exam - General 1994 Constitutional general appearance Overall: well developed 08/14/2012 None Full Exam - General 1994 Constitutional general appearance Overall: in no acute distress 08/14/2012 None Full Exam - General 1994 Constitutional general appearance Overall: well nourished 08/14/2012 None Full Exam - General 1994 Eyes pupils and irises Pupil: round 08/14/2012 None Full Exam - General 1994 Eyes pupils and irises Pupil: reactive to light 08/14/2012 None Full Exam - General 1995 Ears/Nose/Throat otoscopic exam Overall: external auditory canals clear 08/14/2012 None Full Exam - General 1995 Ears/Nose/Throat otoscopic exam Overall: tympanic membranes clear 08/14/2012 None Full Exam - General 1995 Ears/Nose/Throat oral cavity/pharynx/larynx Overall: oral mucosa clear 08/14/2012 None Full Exam - General 1995 Ears/Nose/Throat oral cavity/pharynx/larynx Overall: oropharyngeal mucosa clear 08/14/2012 None Full Exam - General 1994 Ears/Nose/Throat oral cavity/pharynx/larynx Overall: no masses 08/14/2012 None Full Exam - General 1994 Respiratory auscultation Overall: breath sounds clear bilaterally 08/14/2012 None Full Exam - General 1994 Respiratory respiratory effort/rhythm Overall: no retractions 08/14/2012 None Full Exam - General 1994 Respiratory respiratory effort/rhythm Overall: normal rate 08/14/2012 None Full Exam - General 1995 Chest/Breast breast/chest inspection Overall: normal chest shape 08/14/2012 None Full Exam - General 1995 Chest/Breast breast/chest inspection Skin appearance: a normal exam 08/14/2012 None Full Exam - General 1994 Abdomen abdominal exam Overall: no tenderness 08/14/2012 None Full Exam - General 1994 Abdomen abdominal exam Overall: normal bowel sounds 08/14/2012 None Full Exam - General 1994 Musculoskeletal head and neck Overall: head atraumatic 08/14/2012 None Full Exam - General 1994 Musculoskeletal head and neck Overall: cervical spine benign 08/14/2012 None Full Exam - General 1994 Neurologic gait Overall: no ataxia, no unsteadiness 08/14/2012 None Full Exam - General 1994 Psychiatric orientation/consciousness Overall: oriented to person, place and time 08/14/2012 None Full Exam - General 1994 Psychiatric mood and affect Overall: normal mood and affect 08/14/2012 None Full Exam - General 1994 Cardiovascular auscultation of heart Overall: regular rate 08/14/2012 None Full Exam - General 1994 Cardiovascular auscultation of heart Overall: normal heart sounds 08/14/2012 None Full Exam - General 1994 Cardiovascular auscultation of heart Overall: no murmurs 08/14/2012 None Full Exam - General 1994 Chest/Breast breast and axillae palpation Nipple: non-tender 08/14/2012 None Full Exam - General 1994 Chest/Breast breast and axillae palpation Nipple: no discharge 08/14/2012 None Full Exam - General 1994 Chest/Breast breast and axillae palpation Axillae: no mass 08/14/2012 None Full Exam - General 1994 Chest/Breast breast and axillae palpation Upper inner quadrant: no mass 08/14/2012 None Full Exam - General 1994 Chest/Breast breast and axillae palpation Upper outer quadrant: no mass 08/14/2012 None Full Exam - General 1994 Chest/Breast breast and axillae palpation Lower inner quadrant: no mass 08/14/2012 None Full Exam - General 1994 Chest/Breast breast and axillae palpation Lower inner quadrant: non-tender 08/14/2012 No ne Full Exam - General 1994 Chest/Breast breast and axillae palpation Lower inner quadrant: tender 08/14/2012 over t eh 8 o clock position Full Exam - General 1994 Chest/Breast breast and axillae palpation Lower inner quadrant: soft 08/14/2012 None Full Exam - ENT Constitutional general appearance Overall: well nourished 05/22/2012 None Full Exam - ENT Constitutional general appearance Overall: well developed 05/22/2012 None Full Exam - ENT Constitutional general appearance Overall: in no acute distress 05/22/2012 None Full Exam - ENT Neurologic orientation Overall: oriented to person, place a nd time 05/22/2012 None Full Exam - ENT Lymphatic palpation of lymph nodes Overall: anterior cervical chain benign 05/22/2012 None Full Exam - ENT Lymphatic palpation of lymph nodes Overall: posterior cervical chain benign 05/22/2012 None Full Exam - ENT Cardiovascular auscultation of heart Overall: regular rate 05/22/2012 None Full Exam - ENT Cardiovascular auscultation of heart Overall: normal heart sounds 05/22/2012 None Full Exam - ENT Respiratory auscultation Overall: breath sounds clear bilater ally 05/22/2012 None Full Exam - ENT Respiratory inspection Overall: no retractions 05/22/2012 None Full Exam - ENT Respiratory inspection Overall: normal rate 11/2012 None Full Exam - ENT Face and Head palpation Overall: no sinus tenderness 05/22/2012 None Full Exam - ENT Ears/Nose/Throat otoscopic exam Overall: external auditory canals normal 05/22/2012 None Full Exam - ENT Ears/Nose/Throat otoscopic exam Overall: tympanic membranes normal 05/22/2012 None Full Exam - ENT Ears/Nose/Throat oropharynx Overall: oral mucosa clear 05/22/2012 None Full Exam - General 1994 Constitutional general appearance Overall: well nourished 04/17/2012 None Full Exam - General 1994 Constitutional general appearance Overall: well developed 04/17/2012 None Full Exam - General 1994 Constitutional general appearance Overall: in no acute distress 04/17/2012 None Full Exam - General 1994 Ears/Nose/Throat otoscopic exam Overall: external auditory canals clear 04/17/2012 None Full Exam - General 1994 Ears/Nose/Throat otoscopic exam Overall: tympanic membranes clear 04/17/2012 None Full Exam - General 1994 Ears/Nose/Throat oral cavity/pharynx/larynx Overall: oral mucosa clear 04/17/2012 None Full Exam - General 1994 Ears/Nose/Throat oral cavity/pharynx/larynx Overall: oropharyngeal mucosa clear 04/17/2012 None Full Exam - General 1994 Ears/Nose/Throat oral cavity/pharynx/larynx Overall: no masses 04/17/2012 None Full Exam - General 1994 Respiratory auscultation Overall: breath sounds clear bilaterally 04/17/2012 None Full Exam - General 1994 Respiratory respiratory effort/rhythm Overall: no retractions 04/17/2012 None Full Exam - General 1994 Respiratory respiratory effort/rhythm Overall: normal rate 04/17/2012 None Full Exam - General 1994 Cardiovascular auscultation of heart Overall: regular rate 04/17/2012 None Full Exam - General 1994 Cardiovascular auscultation of heart Overall: normal heart sounds 04/17/2012 None Full Exam - General 1994 Cardiovascular auscultation of heart Overall: no murmurs 04/17/2012 None Full Exam - General 1994 Chest/Breast breast and axillae palpation Nipple: non-tender 04/17/2012 None Full Exam - General 1994 Chest/Breast breast and axillae palpation Nipple: no discharge 04/17/2012 None Full Exam - General 1994 Chest/Breast breast and axillae palpation Axillae: no mass 04/17/2012 None Full Exam - General 1994 Chest/Breast breast and axillae palpation Upper inner quadrant: no mass 04/17/2012 None Full Exam - General 1994 Chest/Breast breast and axillae palpation Upper outer quadrant: no mass 04/17/2012 None Full Exam - General 1994 Chest/Breast breast and axillae palpation Lower inner quadrant: no mass 04/17/2012 None Full Exam - General 1994 Chest/Breast breast and axillae palpation Lower inner quadrant: non-tender 04/17/2012 No ne Full Exam - General 1994 Chest/Breast breast and axillae palpation Lower inner quadrant: tender 04/17/2012 over t eh 8 o clock position Full Exam - General 1994 Chest/Breast breast and axillae palpation Lower inner quadrant: soft 04/17/2012 None Full Exam - General 1994 Chest/Breast breast/chest inspection Overall: normal chest shape 04/17/2012 None Full Exam - General 1994 Chest/Breast breast/chest inspection Skin appearance: a normal exam 04/17/2012 None Full Exam - General 1994 Abdomen abdominal exam Overall: no tenderness 04/17/2012 None Full Exam - General 1994 Abdomen abdominal exam Overall: normal bowel sounds 04/17/2012 None Full Exam - General 1994 Musculoskeletal digits and nails DIPs: fifth 04/17/2012 None Full Exam - General 1994 Musculoskeletal digits and nails DIPs: nodule 04/17/2012 None Full Exam - General 1994 Musculoskeletal digits and nails DIPs: bony enlargement 04/17/2012 None Full Exam - General 1994 Neurologic gait Overall: no ataxia, no unsteadiness 04/17/2012 None Full Exam - General 1994 Psychiatric orientation/consciousness Overall: oriented to person, place and time 04/17/2012 None Full Exam - General 1994 Psychiatric mood and affect Overall: normal mood and affect 04/17/2012 None Full Exam - General 1994 Chest/Breast breast and axillae palpation Lower inner quadrant: soft 12/01/2011 None Full Exam - General 1994 Chest/Breast breast/chest inspection Overall: normal chest shape 12/01/2011 None Full Exam - General 1994 Chest/Breast breast/chest inspection Skin appearance: a normal exam 12/01/2011 None Full Exam - General 1994 Abdomen abdominal exam Overall: no tenderness 12/01/2011 None Full Exam - General 1994 Abdomen abdominal exam Overall: normal bowel sounds 12/01/2011 None Full Exam - General 1994 Neurologic gait Overall: no ataxia, no unsteadiness 12/01/2011 None Full Exam - General 1994 Psychiatric orientation/consciousness Overall: oriented to person, place and time 12/01/2011 None Full Exam - General 1994 Psychiatric mood and affect Overall: normal mood and affect 12/01/2011 None Full Exam - General 1994 Eyes pupils and irises Pupil: round 12/01/2011 None Full Exam - General 1994 Eyes pupils and irises Pupil: reactive to light 12/01/2011 None Full Exam - General 1994 Musculoskeletal head and neck Overall: head atraumatic 12/01/2011 None Full Exam - General 1994 Musculoskeletal head and neck Overall: cervical spine benign 12/01/2011 None Full Exam - General 1994 Respiratory auscultation Overall: breath sounds clear bilaterally 12/01/2011 None Full Exam - General 1994 Respiratory respiratory effort/rhythm Overall: no retractions 12/01/2011 None Full Exam - General 1994 Respiratory respiratory effort/rhythm Overall: normal rate 12/01/2011 None Full Exam - General 1994 Cardiovascular auscultation of heart Overall: regular rate 12/01/2011 None Full Exam - General 1994 Cardiovascular auscultation of heart Overall: normal heart sounds 12/01/2011 None Full Exam - General 1994 Cardiovascular auscultation of heart Overall: no murmurs 12/01/2011 None Full Exam - General 1994 Chest/Breast breast and axillae palpation Nipple: non-tender 12/01/2011 None Full Exam - General 1994 Chest/Breast breast and axillae palpation Nipple: no discharge 12/01/2011 None Full Exam - General 1994 Chest/Breast breast and axillae palpation Axillae: no mass 12/01/2011 None Full Exam - General 1994 Chest/Breast breast and axillae palpation Upper inner quadrant: no mass 12/01/2011 None Full Exam - General 1994 Chest/Breast breast and axillae palpation Upper outer quadrant: no mass 12/01/2011 None Full Exam - General 1994 Chest/Breast breast and axillae palpation Lower inner quadrant: no mass 12/01/2011 None Full Exam - General 1994 Chest/Breast breast and axillae palpation Lower inner quadrant: non-tender 12/01/2011 No ne Full Exam - General 1994 Chest/Breast breast and axillae palpation Lower inner quadrant: tender 12/01/2011 over t eh 8 o clock position Full Exam - General 1994 Constitutional general appearance Overall: well nourished 12/01/2011 None Full Exam - General 1994 Constitutional general appearance Overall: well developed 12/01/2011 None Full Exam - General 1994 Constitutional general appearance Overall: in no acute distress 12/01/2011 None Full Exam - General 1994 Ears/Nose/Throat otoscopic exam Overall: external auditory canals clear 12/01/2011 None Full Exam - General 1994 Ears/Nose/Throat otoscopic exam Overall: tympanic membranes clear 12/01/2011 None Full Exam - General 1994 Ears/Nose/Throat oral cavity/pharynx/larynx Overall: oral mucosa clear 12/01/2011 None Full Exam - General 1994 Ears/Nose/Throat oral cavity/pharynx/larynx Overall: oropharyngeal mucosa clear 12/01/2011 None Full Exam - General 1994 Ears/Nose/Throat oral cavity/pharynx/larynx Overall: no masses 12/01/2011 None Full Exam - General 1994 Constitutional general appearance Overall: well nourished 08/11/2011 None Full Exam - General 1994 Constitutional general appearance Overall: well developed 08/11/2011 None Full Exam - General 1994 Constitutional general appearance Overall: in no acute distress 08/11/2011 None Full Exam - General 1994 Ears/Nose/Throat otoscopic exam Overall: external auditory canals clear 08/11/2011 None Full Exam - General 1994 Ears/Nose/Throat otoscopic exam Overall: tympanic membranes clear 08/11/2011 None Full Exam - General 1994 Ears/Nose/Throat oral cavity/pharynx/larynx Overall: oral mucosa clear 08/11/2011 None Full Exam - General 1994 Ears/Nose/Throat oral cavity/pharynx/larynx Overall: oropharyngeal mucosa clear 08/11/2011 None Full Exam - General 1994 Ears/Nose/Throat oral cavity/pharynx/larynx Overall: no masses 08/11/2011 None Full Exam - General 1994 Respiratory auscultation Overall: breath sounds clear bilaterally 08/11/2011 None Full Exam - General 1994 Respiratory respiratory effort/rhythm Overall: no retractions 08/11/2011 None Full Exam - General 1994 Respiratory respiratory effort/rhythm Overall: normal rate 08/11/2011 None Full Exam - General 1994 Cardiovascular auscultation of heart Overall: regular rate 08/11/2011 None Full Exam - General 1994 Cardiovascular auscultation of heart Overall: normal heart sounds 08/11/2011 None Full Exam - General 1994 Cardiovascular auscultation of heart Overall: no murmurs 08/11/2011 None Full Exam - General 1994 Chest/Breast breast and axillae palpation Nipple: non-tender 08/11/2011 None Full Exam - General 1994 Chest/Breast breast and axillae palpation Nipple: no discharge 08/11/2011 None Full Exam - General 1994 Chest/Breast breast and axillae palpation Axillae: no mass 08/11/2011 None Full Exam - General 1994 Chest/Breast breast and axillae palpation Upper inner quadrant: no mass 08/11/2011 None Full Exam - General 1994 Chest/Breast breast and axillae palpation Upper outer quadrant: no mass 08/11/2011 None Full Exam - General 1994 Chest/Breast breast and axillae palpation Lower inner quadrant: no mass 08/11/2011 None Full Exam - General 1994 Chest/Breast breast and axillae palpation Lower inner quadrant: non-tender 08/11/2011 No ne Full Exam - General 1994 Chest/Breast breast and axillae palpation Lower inner quadrant: tender 08/11/2011 over t eh 8 o clock position Full Exam - General 1994 Chest/Breast breast and axillae palpation Lower inner quadrant: soft 08/11/2011 None Full Exam - General 1994 Chest/Breast breast/chest inspection Overall: normal chest shape 08/11/2011 None Full Exam - General 1994 Chest/Breast breast/chest inspection Skin appearance: a normal exam 08/11/2011 None Full Exam - General 1994 Abdomen abdominal exam Overall: no tenderness 08/11/2011 None Full Exam - General 1994 Abdomen abdominal exam Overall: normal bowel sounds 08/11/2011 None Full Exam - General 1994 Neurologic gait Overall: no ataxia, no unsteadiness 08/11/2011 None Full Exam - General 1994 Psychiatric orientation/consciousness Overall: oriented to person, place and time 08/11/2011 None Full Exam - General 1994 Psychiatric mood and affect Overall: normal mood and affect 08/11/2011 None Full Exam - General 1994 Musculoskeletal digits and nails DIPs: fifth 08/11/2011 None Full Exam - General 1994 Musculoskeletal digits and nails DIPs: bony enlargement 08/11/2011 None Full Exam - General 1994 Musculoskeletal digits and nails DIPs: nodule 08/11/2011 None Full Exam - General 1994 Neurologic gait Overall: no ataxia, no unsteadiness 06/01/2011 None Full Exam - General 1994 Psychiatric orientation/consciousness Overall: oriented to person, place and time 06/01/2011 None Full Exam - General 1994 Psychiatric mood and affect Mood: anxious 06/01/2011 None Full Exam - General 1994 Eyes pupils and irises Overall: pupils equal, round, reactive to light and accomodation 06/01/2011 None Full Exam - General 1994 Integument inspection of skin Location: left hand 06/01/2011 index finger Full Exam - General 1994 Constitutional general appearance Overall: in no acute distress 06/01/2011 None Full Exam - General 1994 Ears/Nose/Throat otoscopic exam Overall: external auditory canals clear 06/01/2011 None Full Exam - General 1994 Ears/Nose/Throat otoscopic exam Overall: tympanic membranes clear 06/01/2011 None Full Exam - General 1994 Ears/Nose/Throat oral cavity/pharynx/larynx Overall: oral mucosa clear 06/01/2011 None Full Exam - General 1995 Ears/Nose/Throat oral cavity/pharynx/larynx Overall: oropharyngeal mucosa clear 06/01/2011 None Full Exam - General 1995 Ears/Nose/Throat oral cavity/pharynx/larynx Overall: no masses 06/01/2011 None Full Exam - General 1994 Respiratory auscultation Overall: breath sounds clear bilaterally 06/01/2011 None Full Exam - General 1994 Respiratory respiratory effort/rhythm Overall: no retractions 06/01/2011 None Full Exam - General 1994 Respiratory respiratory effort/rhythm Overall: normal rate 06/01/2011 None Full Exam - General 1994 Cardiovascular auscultation of heart Overall: regular rate 06/01/2011 None Full Exam - General 1994 Cardiovascular auscultation of heart Overall: normal heart sounds 06/01/2011 None Full Exam - General 1994 Cardiovascular auscultation of heart Overall: no murmurs 06/01/2011 None Full Exam - General 1994 Abdomen abdominal exam Overall: no tenderness 06/01/2011 None Full Exam - General 1994 Constitutional general appearance Overall: well nourished 06/01/2011 None Full Exam - General 1994 Constitutional general appearance Overall: well developed 06/01/2011 None Full Exam - General 1994 Abdomen abdominal exam Overall: normal bowel sounds 06/01/2011 None Full Exam - General 1994 Musculoskeletal head and neck Overall: head atraumatic 06/01/2011 None Full Exam - General 1994 Musculoskeletal head and neck Overall: cervical spine benign 06/01/2011 None Full Exam - General 1994 Constitutional general appearance Overall: well nourished 05/18/2011 None Full Exam - General 1994 Constitutional general appearance Overall: well developed 05/18/2011 None Full Exam - General 1994 Constitutional general appearance Overall: in no acute distress 05/18/2011 None Full Exam - General 1994 Eyes pupils and irises Pupil: irregular shape 05/18/2011 None Full Exam - General 1994 Eyes pupils and irises Pupil: round 05/18/2011 None Full Exam - General 1994 Eyes pupils and irises Pupil: reactive to light 05/18/2011 None Full Exam - General 1994 Eyes pupils and irises Pupil: reactive to accommodation 05/18/2011 None Full Exam - General 1994 Ears/Nose/Throat otoscopic exam Overall: tympanic membranes clear 05/18/2011 None Full Exam - General 1994 Ears/Nose/Throat otoscopic exam Overall: external auditory canals clear 05/18/2011 None Full Exam - General 1995 Ears/Nose/Throat oral cavity/pharynx/larynx Overall: oropharyngeal mucosa clear 05/18/2011 None Full Exam - General 1995 Ears/Nose/Throat oral cavity/pharynx/larynx Overall: no masses 05/18/2011 None Full Exam - General 1995 Ears/Nose/Throat oral cavity/pharynx/larynx Overall: oral mucosa clear 05/18/2011 None Full Exam - General 1994 Respiratory auscultation Overall: breath sounds clear bilaterally 05/18/2011 None Full Exam - General 1994 Respiratory respiratory effort/rhythm Overall: normal rate 05/18/2011 None Full Exam - General 1994 Respiratory respiratory effort/rhythm Overall: no retractions 05/18/2011 None Full Exam - General 1994 Cardiovascular auscultation of heart Overall: regular rate 05/18/2011 None Full Exam - General 1994 Cardiovascular auscultation of heart Overall: normal heart sounds 05/18/2011 None Full Exam - General 1994 Cardiovascular auscultation of heart Overall: no murmurs 05/18/2011 None Full Exam - General 1994 Chest/Breast breast and axillae palpation Nipple: non-tender 05/18/2011 None Full Exam - General 1994 Chest/Breast breast and axillae palpation Nipple: no discharge 05/18/2011 None Full Exam - General 1994 Chest/Breast breast and axillae palpation Axillae: no mass 05/18/2011 None Full Exam - General 1994 Chest/Breast breast and axillae palpation Upper inner quadrant: no mass 05/18/2011 None Full Exam - General 1994 Chest/Breast breast and axillae palpation Upper outer quadrant: no mass 05/18/2011 None Full Exam - General 1994 Chest/Breast breast and axillae palpation Lower inner quadrant: no mass 05/18/2011 None Full Exam - General 1994 Chest/Breast breast and axillae palpation Lower inner quadrant: soft 05/18/2011 None Full Exam - General 1994 Chest/Breast breast and axillae palpation Lower inner quadrant: tender 05/18/2011 over t eh 8 o clock position Full Exam - General 1994 Chest/Breast breast and axillae palpation Lower inner quadrant: non-tender 05/18/2011 No ne Full Exam - General 1994 Abdomen abdominal exam Overall: no tenderness 05/18/2011 None Full Exam - General 1994 Abdomen abdominal exam Overall: normal bowel sounds 05/18/2011 None Full Exam - General 1994 Chest/Breast breast/chest inspection Overall: normal chest shape 05/18/2011 None Full Exam - General 1994 Chest/Breast breast/chest inspection Skin appearance: a normal exam 05/18/2011 None Full Exam - General 1994 Lymphatic neck nodes Overall: anterior cervical chain benign 05/18/2011 None Full Exam - General 1994 Lymphatic neck nodes Overall: posterior cervical chain benign 05/18/2011 None Full Exam - General 1994 Musculoskeletal head and neck Overall: cervical spine benign 05/18/2011 None Full Exam - General 1994 Musculoskeletal head and neck Overall: head atraumatic 05/18/2011 None Full Exam - General 1994 Integument inspection of skin Overall: no rash, lesions 05/18/2011 None Full Exam - General 1994 Neurologic gait Overall: no ataxia, no unsteadiness 05/18/2011 None Full Exam - General 1994 Psychiatric orientation/consciousness Overall: oriented to person, place and time 05/18/2011 None Full Exam - General 1994 Psychiatric mood and affect Mood: anxious 05/18/2011 None Instructions Comment mammogram prevnar 13 . Medicare Exam - today we discussed the patients past history, immunizations, preventative exams/evaluations - colonoscopy, fecal occult blood testing, routine labs for renal function, glucose, cholesterol, osteoporosis evaluations, cardiovascular testing and cancer screenings. We have also discussed mental health and the signs/symptoms of depression. The patient was advised of home safety evaluations and the need to make sure that as the aging process continues, we need to be aware of different ways to make the home a safer place to reside. The patient has also been counseled that exercise is necessary - and of utmost importance as we age to help decrease fall risk and to maintain independence in the home. Today we discussed the need for the patient to create paperwork for Advanced directives as well as for the patient to provide this office with a copy of her DOP[employer] paperwork for health care surrogate. . Bipolar Mood disor radha - symptoms improved with switch to seroquel-make appt for counseling-no change in medications-call me if symptoms ANY or new symptoms develop. Follow up in the office in 2 weeks, sooner if needed. Patient verbalized understanding of plan. HOLD ATORVASTATIN/LI PITOR X 2 WEEK . Rash-uncertain etiology-Dr Littlejohn in to evaluate patient-plan to hold atorvastatin, use hydroxyzine as needed for itching. Instructed patient to call if symptoms do not improve, if any worse or new symptoms develop. Follow up in the office in 2 weeks, sooner if needed. Patient verbalized understanding of plan. Tetanus shot given t michelle in office. Take antiboitic as prescribed. Take probiotic while taking antibiotic. . Dog bite- Start antibiotic today. RX s ent to pt's pharmacy. Pt has been instructed to take probiotic while on antibiotic. Tetanus shot given today in office. Pt instructed to call or return to clinic if symptoms worsen. Verbalizes understanding. Dysuria- UA negative. Increase water intake. Return if symptoms worsen or persist. . Fracture of left h eel-gait instability-seeing Dr Artis-no surgery required-patient is using wheelchair or walker with stand by assist-home health to continue working with her. Ikwpppeco-swtxzre-tozlzhsj daily anti histamine . Dizziness-headache -vision changes-recommend MRI brain for further evaluation-also discussed eye exam STAY OFF ATORVASTATI N X 2 MORE WEEKS-IF YOUR RASH DOESN'T RETURN, RESTART EVERY OTHER DAY . Hypertension - well controlled - eugenia nue with current medications, continue with no added salt diet. Pt has been encouraged to exercise daily. The pt has been advised to call the office if there are any acute concerns about change in blood pressure readings at home. Chronic Depression and anxiety - the pt has symptoms of chronic anxiety and depression that have been fairly well controlled since the last office visit. The pt has expected periods of exacerbation with abatement of the symptoms with change in situational exposure. No change in current medications. Rash-resolved Flonase . Bipolar-symptoms controlled-check depa kote level today Hypertension - well controlled - continue with current medications, continue with no added salt diet. Pt has been encouraged to exercise daily. The pt has been advised to call the office if there are any acute concerns about change in blood pressure readings at home. Hypothyroidism - pt with chronic hypothyroidism, continue with current medication, will monitor pt to signs or symptoms of lack of adequate supplementation. Pt is to continue with current dose of medication unless directed otherwise. Check labs at regular intervals wither q 3 months or q 6 months based on previous levels of control. Allergies - chronic - recommended pt to use allergy medication as prescribed. Pt has been counseled as to the appropriate use of the medication. Pt to call if allergy symptoms are not controlled with the medication. If using nasal spray, instructions as follows: Nasal spray- use twice daily, one spray per nostril twice daily, after 30 minutes, rinse out nose with saline spray.. Use opposite hand per nostril to spray in the nasal steroid allergy spray. Dysuria-UA negative-monitor symptoms . URI - Pt advised t o increase fluids, vitamin C. Discussed natural and expected course of this diagnosis and need to alert me if symptoms do not follow expected course, or if any worse. RX sent to patient's pharmacy. Allergies-kenalog injection today in the office. Edema - pt has been advised to elevate legs to prevent dependent edema, compression has been recommended to help to naturally decrease peripheral edema. Diuretic use has been discussed and pt has been instructed in appropriate use of such medication as necessary to further attempt to reduce peripheral edema. CHECK UA CLARITIN 10MG DAILY ZPACK CALL IF SYMPTOMS DO NOT RESOLVE . Dysuria-UA positive-will culture and t reat as appropriate URI with persistent cough - Pt advised to increase fluids, vitamin C. Discussed natural and expected course of this diagnosis and need to alert me if symptoms do not follow expected course, or if any worse. RX sent to patient's pharmacy. . Hypothyroidism - p t with chronic hypothyroidism, continue with current medication, will monitor pt to signs or symptoms of lack of adequate supplementation. Pt is to continue with current dose of medication unless directed otherwise. Check labs at regular intervals wither q 3 months or q 6 months based on previous levels of control. Hyperlipidemia - pt has been counseled about appropriate diet, exercise, and need for low fat food choices. I have discussed the need for the patient to take medications as prescribed. If the patient has negative side effects from the medication, they are to CALL the office and not abruptly discontinue the medication without discussion with a practicioner in the office. We will check labs in 3-6 months for follow up on the patient's chronic medical problem and to assure normal liver response to medications. Chronic Depression and anxiety - the pt has symptoms of chronic anxiety and depression that have been fairly well controlled since the last office visit. The pt has expected periods of exacerbation with abatement of the symptoms with change in situational exposure. No change in current medications. Per pt report, she was told that her vitamin D level was low - she was informed that her vitamin d level will be reviewed and if needed a script called out to [facility]. Appointment with Dr. Littlejohn in January. . Muscle strain/back pain- Biofreeze olga lied to shoulders and back muscles in office. Pt to continue Biofreeze at home along with NSAID pain relief PRN. If no improvement in symptoms in 2 weeks, pt to call office for further evaluation. Pt states she will consider a steroid injection for her lower back pain but would prefer to try a more conservative Return to clinic or call sooner if symptoms worsen or for acute problems. Vaginal yeast infection- RX to pharmacy. Pt encouraged to continue use of probiotic as well. Call or return to clinic if symptoms persist or worsen. Linda - You need to let your family know that from now forward your house is a "NO SWEETS ZONE" TUESDAY THROUGH TUESDAY - on Tuesday ONLY - you can have some sweets. The rest of the week you need to leave the desserts alone. Weigh in at the office every 2 weeks until your next appointment. . Obesity - chronic issue with this patient. The pt has been counseled about diet changes, calorie restriction, and need to exercise. Pt will RTC in every two weeks for weight check. Dyspnea due to obesity - cardiac work-up has been negative. bipolar mood disorder - symptom have been stable on current regimen - pt to continue with psychiatric care, current medications, call if symptoms are starting to return. . Hypertension - wel l controlled - continue with current medications, continue with no added salt diet. Pt has been encouraged to exercise daily. The pt has been advised to call the office if there are any acute concerns about change in blood pressure readings at home. Hypothyroidism - pt with chronic hypothyroidism, continue with current medication, will monitor pt to signs or symptoms of lack of adequate supplementation. Pt is to continue with current dose of medication unless directed otherwise. Check labs at regular intervals wither q 3 months or q 6 months based on previous levels of control. Bipolar-check depakote level today . Hypertension - wel l controlled - continue with current medications, continue with no added salt diet. Pt has been encouraged to exercise daily. The pt has been advised to call the office if there are any acute concerns about change in blood pressure readings at home. Hypothyroidism - pt with chronic hypothyroidism, continue with current medication, will monitor pt to signs or symptoms of lack of adequate supplementation. Pt is to continue with current dose of medication unless directed otherwise. Check labs at regular intervals wither q 3 months or q 6 months based on previous levels of control. Bipolar-recent hospitalization at [facility] with pt residing at - continue with current management. Defer Bipolar treatment to psychiatry. . URI - Pt advised t o increase fluids, vitamin C. Discussed natural and expected course of this diagnosis and need to alert me if symptoms do not follow expected course, or if any worse. RX sent to patient's pharmacy. Bipolar-symptoms stable-no changes . Hypertension - wel l controlled - continue with current medications, continue with no added salt diet. Pt has been encouraged to exercise daily. The pt has been advised to call the office if there are any acute concerns about change in blood pressure readings at home. Obesity - chronic issue with this patient. The pt has been counseled about diet changes, calorie restriction, and need to exercise. Pt will RTC in one month for weight check. First goal weight for TOPS is 190# Urinary frequency-check UA Increase omeprazole to twice daily . Esophageal Reflux - the patient has be en counseled against excessive intake of caffeine, spicy foods, peppermint, and cinnamon - all of which can exacerbate esophageal reflux. The patient is to take medications as prescribed and call the office if the symptoms are not improving. Hypertension - well controlled - continue with current medications, continue with no added salt diet. Pt has been encouraged to exercise daily. The pt has been advised to call the office if there are any acute concerns about change in blood pressure readings at home. Chronic Depression and anxiety - the pt has symptoms of chronic anxiety and depression that have been fairly well controlled since the last office visit. The pt has expected periods of exacerbation with abatement of the symptoms with change in situational exposure. No change in current medications. . Seborrheic keratos is-not inflamed today in the office-if becomes irritated or inflamed, will plan for removal. Patient verbalized understanding of plan. . Pharyngitis-Discus sed natural and expected course of this diagnosis and need to alert me if symtpoms do not follow expected course, or if any worse. Recommended salt water gargles as needed for pain. Tylenol/motrin as needed for fever/discomfort. Allergies - chronic - recommended pt to use allergy medication as prescribed. Pt has been counseled as to the appropriate use of the medication. Pt to call if allergy symptoms are not controlled with the medication. If using nasal spray, instructions as follows: Nasal spray- use twice daily, one spray per nostril twice daily, after 30 minutes, rinse out nose with saline spray.. Use opposite hand per nostril to spray in the nasal steroid allergy spray. Kenalog injection today in the office INCREASE EFFEXOR TO 75MG DAILY . Bipolar Mood disorder - it appears sandra t the patient may be having worsening manic episodes, and paranoia - discussed with Dr Littlejohn-recommend inpatient treatment-patient declines at this time-will increase effexor to 75mg daily and recommend patient follow up with psychiatrist this week. Call me if symptoms ANY or new symptoms develop. Follow up in the office in 2 weeks, sooner if needed. Patient verbalized understanding of plan. Hypertension -slightly elevated today - continue with current medications, continue with no added salt diet. Pt has been encouraged to exercise daily. The pt has been advised to call the office if there are any acute concerns about change in blood pressure readings at home. . Hypertension - wel l controlled - continue with current medications, continue with no added salt diet. Pt has been encouraged to exercise daily. The pt has been advised to call the office if there are any acute concerns about change in blood pressure readings at home. Bipolar depression-managed by Dr Valencia-doing well on current medications . Medicare Exam - to day we discussed the patients past history, immunizations, preventative exams/evaluations - colonoscopy, fecal occult blood testing (cards sent home with patient) routine labs for renal function, glucose, cholesterol, osteoporosis evaluations, cardiovascular testing and cancer screenings. We have also discussed mental health and the signs/symptoms of depression. The patient was advised of home safety evaluations and the need to make sure that as the aging process continues, we need to be aware of different ways to make the home a safer place to reside. The patient has also been counseled that exercise is necessary - and of utmost importance as we age to help decrease fall risk and to maintain independence in the home. Today we discussed the need for the patient to create paperwork for Advanced directives as well as for the patient to provide this office with a copy of her DOP[employer] paperwork for health care surrogate. FLU SWAB . Sinusitis - Pt has acute infection - pain in face, maxillary region, Pt informed to use decongestant, RX given to patient, sinus rinses also recommended. Call if symptoms do not show improvement. Fasting labs. Hypert ension - well controlled - continue with current medications, continue with no added salt diet. Pt has been encouraged to exercise daily. The pt has been advised to call the office if there are any acute concerns about change in blood pressure readings at home. Bipolar depression-symptoms stable-seeing Dr Valencia for outpatient treatment TSH, Free T4, CBC, C MP, vitamin D level BRING YOUR BLOOD PRESSURE MACHINE TUESDAY AND WE'LL CHECK YOUR BLOOD PRESSURE AND YOUR MACHINE . Kfqipfgwnfy-qskoljyea-wfoxg labs-incre ase po fluids-monitor blood pressure and pulse-return Tuesday for blood pressure check Hypothyroidism - pt with chronic hypothyroidism, continue with current medication, will monitor pt to signs or symptoms of lack of adequate supplementation. Pt is to continue with current dose of medication unless directed otherwise. Check labs at regular intervals wither q 3 months or q 6 months based on previous levels of control. Dysuria-check UA today . Hypothyroidism - p t with chronic hypothyroidism, continue with current medication, will monitor pt to signs or symptoms of lack of adequate supplementation. Pt is to continue with current dose of medication unless directed otherwise. Check labs at regular intervals wither q 3 months or q 6 months based on previous levels of control. Bipolar Mood disorder - it appears that the patient may be having worsening manic episodes, and paranoia - the patient admits that she has kicked her out of the house again due to her concern that her is "having an affair" again with a neighbor. I have recommended pt to have labs to see if she has enough depakote in her system. We will send a copy of her labs to the psychiatrist. Hypertension - well controlled - continue with current medications, continue with no added salt diet. Pt has been encouraged to exercise daily. The pt has been advised to call the office if there are any acute concerns about change in blood pressure readings at home. . UTI - pt with posi tive urinalysis - culture sent if appropriate. Antibiotic electronically prescribed to pt's pharmacy of choice. Pt to call if symptoms do not improve. zyrtec 10mg daily . Hypertension - well controlled - eugenia nue with current medications, continue with no added salt diet. Pt has been encouraged to exercise daily. The pt has been advised to call the office if there are any acute concerns about change in blood pressure readings at home. Allergies - chronic - recommended pt to use allergy medication as prescribed. Pt has been counseled as to the appropriate use of the medication. Pt to call if allergy symptoms are not controlled with the medication. If using nasal spray, instructions as follows: Nasal spray- use twice daily, one spray per nostril twice daily, after 30 minutes, rinse out nose with saline spray.. Use opposite hand per nostril to spray in the nasal steroid allergy spray. Bipolar-symptoms stable-no changes-call with any concerns. . Hypothyroidism - p t with chronic hypothyroidism, continue with current medication, will monitor pt to signs or symptoms of lack of adequate supplementation. Pt is to continue with current dose of medication unless directed otherwise. Check labs at regular intervals wither q 3 months or q 6 months based on previous levels of control. Bipolar, depression-patients sees Dr Valencia-recent inpatient stay at [facility]-now on latuda and doing well-no changes at this time. Influenza vaccine today in the office mineral oil in your ear at night x 1 week then come by clinic for us to look to see if the wax is gone from the left ear pepcid AC over the counter - take at night x 2 weeks - call if cough is not improving. . Hypertension - well controlled - eugenia nue with current medications, continue with no added salt diet. Pt has been encouraged to exercise daily. The pt has been advised to call the office if there are any acute concerns about change in blood pressure readings at home. Bipolar mood disorder and anxiety - recommended pt to continue with depakote, olanzepine, effexor and counseling, check depakote level and check hgba1c today as well. Hypothyroidism - pt with chronic hypothyroidism, continue with current medication, will monitor pt to signs or symptoms of lack of adequate supplementation. Pt is to continue with current dose of medication unless directed otherwise. Check labs at regular intervals wither q 3 months or q 6 months based on previous levels of control. Hyperlipidemia - pt has been counseled about appropriate diet, exercise, and need for low fat food choices. I have discussed the need for the patient to take medications as prescribed. If the patient has negative side effects from the medication, they are to CALL the office and not abruptly discontinue the medication without discussion with a practitioner in the office. We will check labs in 3-6 months for follow up on the patient's chronic medical problem and to assure normal liver response to medications. Cerumen impaction against ear drum on left - recommendation as follows: mineral oil in your ear at night x 1 week then come by clinic for us to look to see if the wax is gone from the left ear GERD with cough - pepcid AC over the counter - take at night x 2 weeks - call if cough is not improving. . Hypertension - wel l controlled - continue with current medications, continue with no added salt diet. Pt has been encouraged to exercise daily. The pt has been advised to call the office if there are any acute concerns about change in blood pressure readings at home. Bipolar Mood disorder -symptoms improved with current medications-no changes- follow up in 1 month, sooner if needed hold lipitor x 2 wee ks check labs at [facility] ibuprofen 400mg twice daily x 7 days DRINK LOTS of water - at least 16 ounces with each dose of ibuprofen (motrin) you need to get a deep tissue massage. heat to neck and lower back tiger balm for your neck and back muscles. . hold lipitor x 2 weeks check labs at [facility] ibuprofen 400mg twice daily x 7 days DRINK LOTS of water - at least 16 ounces with each dose of ibuprofen (motrin) you need to get a deep tissue massage. heat to neck and lower back tiger balm for your neck and back muscles. get thyroid studies befor next office visit. Hypothyroidism - pt with chronic hypothyroidism, continue with current medication, will monitor pt to signs or symptoms of lack of adequate supplementation. Pt is to continue with current dose of medication unless directed otherwise. Check labs at regular intervals wither q 3 months or q 6 months based on previous levels of control. brand name thyroid medication 75 mcg daily Hyperlipidemia - pt has been counseled about appropriate diet, exercise, and need for low fat food choices. I have discussed the need for the patient to take medications as prescribed. If the patient has negative side effects from the medication, they are to CALL the office and not abruptly discontinue the medication without discussion with a practicioner in the office. We will check labs in 3-6 months for follow up on the patient's chronic medical problem and to assure normal liver response to medications.Restart lipitor at current dose on tuesday, tuesday, fridays.. Call if the aches return. Motrin twice daily for a week. Osteoarthritis - aspercreme to the joint Chronic Depression and anxiety - the pt has symptoms of chronic anxiety and depression that have been fairly well controlled since the last office visit. The pt has expected periods of exacerbation with abatement of the symptoms with change in situational exposure. No change in current medications. change generic lexap ro to bedtime dosing. change the spironolactone to 1 pill three days a week . Hypertension - well controlled - eugenia nue with current medications, continue with no added salt diet. Pt has been encouraged to exercise daily. The pt has been advised to call the office if there are any acute concerns about change in blood pressure readings at home. Edema - pt has been advised to elevate legs to prevent dependent edema, compression has been recommended to help to naturally decrease peripheral edema. Diuretic use has been discussed and pt has been instructed in appropriate use of such medication as necessary to further attempt to reduce peripheral edema. Pt to start on spironolactone - monitor edema, and call if symptoms uncontrolled. Bipolar mood disorder - change lexapro to bedtime dosing, monitor symptoms of depression and bipolar manic/paranoia symptoms and call if pt starts to have worsening of anxiety/paranoia. . Hypothyroidism - p t with chronic hypothyroidism, continue with current medication, will monitor pt to signs or symptoms of lack of adequate supplementation. Pt is to continue with current dose of medication unless directed otherwise. Check labs at regular intervals wither q 3 months or q 6 months based on previous levels of control. Chronic Depression and anxiety - the pt has symptoms of chronic anxiety and depression that have been fairly well controlled since the last office visit. The pt has expected periods of exacerbation with abatement of the symptoms with change in situational exposure. No change in current medications. Elevated fasting glucose - monitor blood glucose levels, check hgba1c. . Edema - pt has bee n advised to elevate legs to prevent dependent edema, compression has been recommended to help to naturally decrease peripheral edema. Diuretic use has been discussed and pt has been instructed in appropriate use of such medication as necessary to further attempt to reduce peripheral edema. Pt to use spironolactone 25mg daily and monitor symptoms. . Mastodynia improve d - continue with no underwire bras and call if symptoms return. Chronic Depression and anxiety - the pt has symptoms of chronic anxiety and depression that have been fairly well controlled since the last office visit. The pt has expected periods of exacerbation with abatement of the symptoms with change in situational exposure. No change in current medications. Abrasion on finger - silvadene prn. Flatulence- start on cultrelle for the bowels, stop using in a week restart if the symptoms return. . Bipolar Mood disor radha - pt states that she feels better since her evaluation and management at the facility - pt states that she feels more stable, still having some concerns and worries about her and his "activities" but she feels more stable than prior to her hospitalization. Hypothyroidism - pt with chronic hypothyroidism, continue with current medication, will monitor pt to signs or symptoms of lack of adequate supplementation. Pt is to continue with current dose of medication unless directed otherwise. Check labs at regular intervals wither q 3 months or q 6 months based on previous levels of control. . Edema - pt has bee n advised to elevate legs to prevent dependent edema, compression has been recommended to help to naturally decrease peripheral edema. Diuretic use has been discussed and pt has been instructed in appropriate use of such medication as necessary to further attempt to reduce peripheral edema. TAKE LASIX AND POTASSIUM DAILY X 3 DAYS AND CALL WITH UPDATE ON SYMPTOMS. Left ankle pain-much improved-use cooper wrap during the day for compression-rest and elevated leg. . Hypothyroidism - p t with chronic hypothyroidism, continue with current medication, will monitor pt to signs or symptoms of lack of adequate supplementation. Pt is to continue with current dose of medication unless directed otherwise. Check labs at regular intervals wither q 3 months or q 6 months based on previous levels of control. Chronic Depression and anxiety - the pt has symptoms of chronic anxiety and depression that have been fairly well controlled since the last office visit. The pt has expected periods of exacerbation with abatement of the symptoms with change in situational exposure. No change in current medications. . Breast pain - orde red mammogram and ultrasound. STOP WEARING UNDERWIRE BRAS. Depression - worsening - recommended pt to talk to her psychiatrist AMRITA. If she cannot get ahold of the psychiatrist this week, call the office here and we will probably have her restart her lexapro at 5mg daily. Hyperlipidemia - pt has been counseled about appropriate diet, exercise, and need for low fat food choices. I have discussed the need for the patient to take medications as prescribed. If the patient has negative side effects from the medication, they are to CALL the office and not abruptly discontinue the medication without discussion with a practicioner in the office. We will check labs in 3-6 months for follow up on the patient's chronic medical problem and to assure normal liver response to medications. Hypothyroidism - pt with chronic hypothyroidism, continue with current medication, will monitor pt to signs or symptoms of lack of adequate supplementation. Pt is to continue with current dose of medication unless directed otherwise. Check labs at regular intervals wither q 3 months or q 6 months based on previous levels of control. . Hypertension - wel l controlled - continue with current medications, continue with no added salt diet. Pt has been encouraged to exercise daily. The pt has been advised to call the office if there are any acute concerns about change in blood pressure readings at home. Hyperlipidemia - pt has been counseled about appropriate diet, exercise, and need for low fat food choices. I have discussed the need for the patient to take medications as prescribed. If the patient has negative side effects from the medication, they are to CALL the office and not abruptly discontinue the medication without discussion with a practicioner in the office. We will check labs in 3-6 months for follow up on the patient's chronic medical problem and to assure normal liver response to medications. . URI - Pt advised t o increase fluids, vitamin C. Discussed natural and expected course of this diagnosis and need to alert me if symtpoms do not follow expected course, or if any worse. RX sent to patient's pharmacy. Rocephin injection today in the office. Allergies - chronic - recommended pt to use allergy medication as prescribed. Pt has been counseled as the the appropriate use of the medication. Pt to call if allergy symptoms are not controlled with the medication. Kenalog injection today in the office. . URI - Pt advised t o increase fluids, vitamin C. Discussed natural and expected course of this diagnosis and need to alert me if symtpoms do not follow expected course, or if any worse. RX sent to patient's pharmacy. Rocephin injection today in the office. Allergies - chronic - recommended pt to use allergy medication as prescribed. Pt has been counseled as the the appropriate use of the medication. Pt to call if allergy symptoms are not controlled with the medication. Kenalog injection today in the office. . Hypertension - wel l controlled - continue with current medications, continue with no added salt diet. Pt has been encouraged to exercise daily. The pt has been advised to call the office if there are any acute concerns about change in blood pressure readings at home. . Rash-culture today in the office-RX for diflucan and nystatin-triamcinolone cream to patients pharmacy and isntructed on use. We will call Tuesday with culture results-let us know if the rash is not better. Call if rash worsens, or does not resolve. Patient verbalized understanding of plan. . Hypertension - wel l controlled - continue with current medications, continue with no added salt diet. Pt has been encouraged to exercise daily. The pt has been advised to call the office if there are any acute concerns about change in blood pressure readings at home. . Bipolar Mood Disor radha with Manic and Depression symptoms - pt reports that she has not been sleeping well, but since change in her medications she feels as if she is doing better. She reports that she will be seeing the father separate from her so that she can get counseling. She reports that she will not be seeing the physician in [place] any more - had actually stopped seeing the physician in [place] as of 2-3 weeks ago. She will be seeing Dr. Cabrera in [place]. . Back pain - recomm ended heat, tiger balm to upper back, stretching exercises, and hand out given to pt. Recommended weight loss, and better breast support to help decrease strain on upper shoulder/upper back muscles. Bipolar Mood disorder -pt relatively stable, continue with current regimen - needs labs before next appt, need to check depakote level. Anxiety - relatively stable. Scab - pt to use neosporin over the lesion, call if not healing. . DM-diabetes and di et education discussed in detal with patient today in the office-handouts also provided-patient verbalized understanding. Allergies - chronic - recommended pt to use allergy medication as prescribed. Pt has been counseled as the the appropriate use of the medication. Pt to call if allergy symptoms are not controlled with the medication. If using nasal spray, instructions as follows: Nasal spray- use twice daily, one spray per nostril twice daily, after 30 minutes, rinse out nose with saline spray.. Use opposite hand per nostril to spray in the nasal steroid allergy spray. Kenalog injection today in the office. Comment . Rash-culture today in the office-RX for diflucan and nystatin-triamcinolone cream to patients pharmacy and isntructed on use. We will call Tuesday with culture results-let us know if the rash is not better. Call if rash worsens, or does not resolve. Patient verbalized understanding of plan. . Hypertension - wel l controlled - continue with current medications, continue with no added salt diet. Pt has been encouraged to exercise daily. The pt has been advised to call the office if there are any acute concerns about change in blood pressure readings at home. . URI - Pt advised t o increase fluids, vitamin C. Discussed natural and expected course of this diagnosis and need to alert me if symtpoms do not follow expected course, or if any worse. RX sent to patient's pharmacy. Rocephin injection today in the office. Allergies - chronic - recommended pt to use allergy medication as prescribed. Pt has been counseled as the the appropriate use of the medication. Pt to call if allergy symptoms are not controlled with the medication. Kenalog injection today in the office. . Bipolar Mood disor radha - symptoms improved with switch to seroquel-make appt for counseling-no change in medications-call me if symptoms ANY or new symptoms develop. Follow up in the office in 2 weeks, sooner if needed. Patient verbalized understanding of plan. HOLD ATORVASTATIN/LI PITOR X 2 WEEK . Rash-uncertain etiology-Dr Littlejohn in to evaluate patient-plan to hold atorvastatin, use hydroxyzine as needed for itching. Instructed patient to call if symptoms do not improve, if any worse or new symptoms develop. Follow up in the office in 2 weeks, sooner if needed. Patient verbalized understanding of plan. Tetanus shot given t michelle in office. Take antiboitic as prescribed. Take probiotic while taking antibiotic. . Dog bite- Start antibiotic today. RX s ent to pt's pharmacy. Pt has been instructed to take probiotic while on antibiotic. Tetanus shot given today in office. Pt instructed to call or return to clinic if symptoms worsen. Verbalizes understanding. Dysuria- UA negative. Increase water intake. Return if symptoms worsen or persist. . URI - Pt advised t o increase fluids, vitamin C. Discussed natural and expected course of this diagnosis and need to alert me if symtpoms do not follow expected course, or if any worse. RX sent to patient's pharmacy. Rocephin injection today in the office. Allergies - chronic - recommended pt to use allergy medication as prescribed. Pt has been counseled as the the appropriate use of the medication. Pt to call if allergy symptoms are not controlled with the medication. Kenalog injection today in the office. . Fracture of left h eel-gait instability-seeing Dr Artis-no surgery required-patient is using wheelchair or walker with stand by assist-home health to continue working with her. Njiaeyexv-kvibkjz-dpjvzgxu daily anti histamine . Hypertension - wel l controlled - continue with current medications, continue with no added salt diet. Pt has been encouraged to exercise daily. The pt has been advised to call the office if there are any acute concerns about change in blood pressure readings at home. Hyperlipidemia - pt has been counseled about appropriate diet, exercise, and need for low fat food choices. I have discussed the need for the patient to take medications as prescribed. If the patient has negative side effects from the medication, they are to CALL the office and not abruptly discontinue the medication without discussion with a practicioner in the office. We will check labs in 3-6 months for follow up on the patient's chronic medical problem and to assure normal liver response to medications. . Breast pain - orde red mammogram and ultrasound. STOP WEARING UNDERWIRE BRAS. Depression - worsening - recommended pt to talk to her psychiatrist AMRITA. If she cannot get ahold of the psychiatrist this week, call the office here and we will probably have her restart her lexapro at 5mg daily. Hyperlipidemia - pt has been counseled about appropriate diet, exercise, and need for low fat food choices. I have discussed the need for the patient to take medications as prescribed. If the patient has negative side effects from the medication, they are to CALL the office and not abruptly discontinue the medication without discussion with a practicioner in the office. We will check labs in 3-6 months for follow up on the patient's chronic medical problem and to assure normal liver response to medications. Hypothyroidism - pt with chronic hypothyroidism, continue with current medication, will monitor pt to signs or symptoms of lack of adequate supplementation. Pt is to continue with current dose of medication unless directed otherwise. Check labs at regular intervals wither q 3 months or q 6 months based on previous levels of control. STAY OFF ATORVASTATI N X 2 MORE WEEKS-IF YOUR RASH DOESN'T RETURN, RESTART EVERY OTHER DAY . Hypertension - well controlled - eugenia nue with current medications, continue with no added salt diet. Pt has been encouraged to exercise daily. The pt has been advised to call the office if there are any acute concerns about change in blood pressure readings at home. Chronic Depression and anxiety - the pt has symptoms of chronic anxiety and depression that have been fairly well controlled since the last office visit. The pt has expected periods of exacerbation with abatement of the symptoms with change in situational exposure. No change in current medications. Rash-resolved Flonase . Bipolar-symptoms controlled-check depa kote level today Hypertension - well controlled - continue with current medications, continue with no added salt diet. Pt has been encouraged to exercise daily. The pt has been advised to call the office if there are any acute concerns about change in blood pressure readings at home. Hypothyroidism - pt with chronic hypothyroidism, continue with current medication, will monitor pt to signs or symptoms of lack of adequate supplementation. Pt is to continue with current dose of medication unless directed otherwise. Check labs at regular intervals wither q 3 months or q 6 months based on previous levels of control. Allergies - chronic - recommended pt to use allergy medication as prescribed. Pt has been counseled as to the appropriate use of the medication. Pt to call if allergy symptoms are not controlled with the medication. If using nasal spray, instructions as follows: Nasal spray- use twice daily, one spray per nostril twice daily, after 30 minutes, rinse out nose with saline spray.. Use opposite hand per nostril to spray in the nasal steroid allergy spray. Dysuria-UA negative-monitor symptoms . URI - Pt advised t o increase fluids, vitamin C. Discussed natural and expected course of this diagnosis and need to alert me if symptoms do not follow expected course, or if any worse. RX sent to patient's pharmacy. Allergies-kenalog injection today in the office. Edema - pt has been advised to elevate legs to prevent dependent edema, compression has been recommended to help to naturally decrease peripheral edema. Diuretic use has been discussed and pt has been instructed in appropriate use of such medication as necessary to further attempt to reduce peripheral edema. . Hypothyroidism - p t with chronic hypothyroidism, continue with current medication, will monitor pt to signs or symptoms of lack of adequate supplementation. Pt is to continue with current dose of medication unless directed otherwise. Check labs at regular intervals wither q 3 months or q 6 months based on previous levels of control. Chronic Depression and anxiety - the pt has symptoms of chronic anxiety and depression that have been fairly well controlled since the last office visit. The pt has expected periods of exacerbation with abatement of the symptoms with change in situational exposure. No change in current medications. . Edema - pt has bee n advised to elevate legs to prevent dependent edema, compression has been recommended to help to naturally decrease peripheral edema. Diuretic use has been discussed and pt has been instructed in appropriate use of such medication as necessary to further attempt to reduce peripheral edema. TAKE LASIX AND POTASSIUM DAILY X 3 DAYS AND CALL WITH UPDATE ON SYMPTOMS. Left ankle pain-much improved-use cooper wrap during the day for compression-rest and elevated leg. . Bipolar Mood disor radha - pt states that she feels better since her evaluation and management at the facility - pt states that she feels more stable, still having some concerns and worries about her and his "activities" but she feels more stable than prior to her hospitalization. Hypothyroidism - pt with chronic hypothyroidism, continue with current medication, will monitor pt to signs or symptoms of lack of adequate supplementation. Pt is to continue with current dose of medication unless directed otherwise. Check labs at regular intervals wither q 3 months or q 6 months based on previous levels of control. . Mastodynia improve d - continue with no underwire bras and call if symptoms return. Chronic Depression and anxiety - the pt has symptoms of chronic anxiety and depression that have been fairly well controlled since the last office visit. The pt has expected periods of exacerbation with abatement of the symptoms with change in situational exposure. No change in current medications. Abrasion on finger - silvadene prn. Flatulence- start on cultrelle for the bowels, stop using in a week restart if the symptoms return. . Hypothyroidism - p t with chronic hypothyroidism, continue with current medication, will monitor pt to signs or symptoms of lack of adequate supplementation. Pt is to continue with current dose of medication unless directed otherwise. Check labs at regular intervals wither q 3 months or q 6 months based on previous levels of control. Hyperlipidemia - pt has been counseled about appropriate diet, exercise, and need for low fat food choices. I have discussed the need for the patient to take medications as prescribed. If the patient has negative side effects from the medication, they are to CALL the office and not abruptly discontinue the medication without discussion with a practicioner in the office. We will check labs in 3-6 months for follow up on the patient's chronic medical problem and to assure normal liver response to medications. Chronic Depression and anxiety - the pt has symptoms of chronic anxiety and depression that have been fairly well controlled since the last office visit. The pt has expected periods of exacerbation with abatement of the symptoms with change in situational exposure. No change in current medications. Per pt report, she was told that her vitamin D level was low - she was informed that her vitamin d level will be reviewed and if needed a script called out to [facility]. Appointment with Dr. Littlejohn in January. . Muscle strain/back pain- Biofreeze olga lied to shoulders and back muscles in office. Pt to continue Biofreeze at home along with NSAID pain relief PRN. If no improvement in symptoms in 2 weeks, pt to call office for further evaluation. Pt states she will consider a steroid injection for her lower back pain but would prefer to try a more conservative Return to clinic or call sooner if symptoms worsen or for acute problems. Vaginal yeast infection- RX to pharmacy. Pt encouraged to continue use of probiotic as well. Call or return to clinic if symptoms persist or worsen. . URI - Pt advised t o increase fluids, vitamin C. Discussed natural and expected course of this diagnosis and need to alert me if symptoms do not follow expected course, or if any worse. RX sent to patient's pharmacy. Bipolar-symptoms stable-no changes . Hypertension - wel l controlled - continue with current medications, continue with no added salt diet. Pt has been encouraged to exercise daily. The pt has been advised to call the office if there are any acute concerns about change in blood pressure readings at home. Obesity - chronic issue with this patient. The pt has been counseled about diet changes, calorie restriction, and need to exercise. Pt will RTC in one month for weight check. First goal weight for TOPS is 190# Urinary frequency-check UA . Edema - pt has bee n advised to elevate legs to prevent dependent edema, compression has been recommended to help to naturally decrease peripheral edema. Diuretic use has been discussed and pt has been instructed in appropriate use of such medication as necessary to further attempt to reduce peripheral edema. Pt to use spironolactone 25mg daily and monitor symptoms. . Hypothyroidism - p t with chronic hypothyroidism, continue with current medication, will monitor pt to signs or symptoms of lack of adequate supplementation. Pt is to continue with current dose of medication unless directed otherwise. Check labs at regular intervals wither q 3 months or q 6 months based on previous levels of control. Chronic Depression and anxiety - the pt has symptoms of chronic anxiety and depression that have been fairly well controlled since the last office visit. The pt has expected periods of exacerbation with abatement of the symptoms with change in situational exposure. No change in current medications. Elevated fasting glucose - monitor blood glucose levels, check hgba1c. change generic lexap ro to bedtime dosing. change the spironolactone to 1 pill three days a week . Hypertension - well controlled - eugenia nue with current medications, continue with no added salt diet. Pt has been encouraged to exercise daily. The pt has been advised to call the office if there are any acute concerns about change in blood pressure readings at home. Edema - pt has been advised to elevate legs to prevent dependent edema, compression has been recommended to help to naturally decrease peripheral edema. Diuretic use has been discussed and pt has been instructed in appropriate use of such medication as necessary to further attempt to reduce peripheral edema. Pt to start on spironolactone - monitor edema, and call if symptoms uncontrolled. Bipolar mood disorder - change lexapro to bedtime dosing, monitor symptoms of depression and bipolar manic/paranoia symptoms and call if pt starts to have worsening of anxiety/paranoia. Increase omeprazole to twice daily . Esophageal Reflux - the patient has be en counseled against excessive intake of caffeine, spicy foods, peppermint, and cinnamon - all of which can exacerbate esophageal reflux. The patient is to take medications as prescribed and call the office if the symptoms are not improving. Hypertension - well controlled - continue with current medications, continue with no added salt diet. Pt has been encouraged to exercise daily. The pt has been advised to call the office if there are any acute concerns about change in blood pressure readings at home. Chronic Depression and anxiety - the pt has symptoms of chronic anxiety and depression that have been fairly well controlled since the last office visit. The pt has expected periods of exacerbation with abatement of the symptoms with change in situational exposure. No change in current medications. . Seborrheic keratos is-not inflamed today in the office-if becomes irritated or inflamed, will plan for removal. Patient verbalized understanding of plan. . Pharyngitis-Discus sed natural and expected course of this diagnosis and need to alert me if symtpoms do not follow expected course, or if any worse. Recommended salt water gargles as needed for pain. Tylenol/motrin as needed for fever/discomfort. Allergies - chronic - recommended pt to use allergy medication as prescribed. Pt has been counseled as to the appropriate use of the medication. Pt to call if allergy symptoms are not controlled with the medication. If using nasal spray, instructions as follows: Nasal spray- use twice daily, one spray per nostril twice daily, after 30 minutes, rinse out nose with saline spray.. Use opposite hand per nostril to spray in the nasal steroid allergy spray. Kenalog injection today in the office get thyroid studies befor next office visit. Hypothyroidism - pt with chronic hypothyroidism, continue with current medication, will monitor pt to signs or symptoms of lack of adequate supplementation. Pt is to continue with current dose of medication unless directed otherwise. Check labs at regular intervals wither q 3 months or q 6 months based on previous levels of control. brand name thyroid medication 75 mcg daily Hyperlipidemia - pt has been counseled about appropriate diet, exercise, and need for low fat food choices. I have discussed the need for the patient to take medications as prescribed. If the patient has negative side effects from the medication, they are to CALL the office and not abruptly discontinue the medication without discussion with a practicioner in the office. We will check labs in 3-6 months for follow up on the patient's chronic medical problem and to assure normal liver response to medications.Restart lipitor at current dose on tuesday, tuesday, fridays.. Call if the aches return. Motrin twice daily for a week. Osteoarthritis - aspercreme to the joint Chronic Depression and anxiety - the pt has symptoms of chronic anxiety and depression that have been fairly well controlled since the last office visit. The pt has expected periods of exacerbation with abatement of the symptoms with change in situational exposure. No change in current medications. INCREASE EFFEXOR TO 75MG DAILY . Bipolar Mood disorder - it appears sandra t the patient may be having worsening manic episodes, and paranoia - discussed with Dr Littlejohn-recommend inpatient treatment-patient declines at this time-will increase effexor to 75mg daily and recommend patient follow up with psychiatrist this week. Call me if symptoms ANY or new symptoms develop. Follow up in the office in 2 weeks, sooner if needed. Patient verbalized understanding of plan. Hypertension -slightly elevated today - continue with current medications, continue with no added salt diet. Pt has been encouraged to exercise daily. The pt has been advised to call the office if there are any acute concerns about change in blood pressure readings at home. . Hypertension - wel l controlled - continue with current medications, continue with no added salt diet. Pt has been encouraged to exercise daily. The pt has been advised to call the office if there are any acute concerns about change in blood pressure readings at home. Bipolar depression-managed by Dr Valencia-doing well on current medications . Medicare Exam - to day we discussed the patients past history, immunizations, preventative exams/evaluations - colonoscopy, fecal occult blood testing (cards sent home with patient) routine labs for renal function, glucose, cholesterol, osteoporosis evaluations, cardiovascular testing and cancer screenings. We have also discussed mental health and the signs/symptoms of depression. The patient was advised of home safety evaluations and the need to make sure that as the aging process continues, we need to be aware of different ways to make the home a safer place to reside. The patient has also been counseled that exercise is necessary - and of utmost importance as we age to help decrease fall risk and to maintain independence in the home. Today we discussed the need for the patient to create paperwork for Advanced directives as well as for the patient to provide this office with a copy of her DOP[employer] paperwork for health care surrogate. hold lipitor x 2 wee ks check labs at [facility] ibuprofen 400mg twice daily x 7 days DRINK LOTS of water - at least 16 ounces with each dose of ibuprofen (motrin) you need to get a deep tissue massage. heat to neck and lower back tiger balm for your neck and back muscles. . hold lipitor x 2 weeks check labs at [facility] ibuprofen 400mg twice daily x 7 days DRINK LOTS of water - at least 16 ounces with each dose of ibuprofen (motrin) you need to get a deep tissue massage. heat to neck and lower back tiger balm for your neck and back muscles. FLU SWAB . Sinusitis - Pt has acute infection - pain in face, maxillary region, Pt informed to use decongestant, RX given to patient, sinus rinses also recommended. Call if symptoms do not show improvement. Fasting labs. Hypert ension - well controlled - continue with current medications, continue with no added salt diet. Pt has been encouraged to exercise daily. The pt has been advised to call the office if there are any acute concerns about change in blood pressure readings at home. Bipolar depression-symptoms stable-seeing Dr Valencia for outpatient treatment TSH, Free T4, CBC, C MP, vitamin D level BRING YOUR BLOOD PRESSURE MACHINE TUESDAY AND WE'LL CHECK YOUR BLOOD PRESSURE AND YOUR MACHINE . Bupyeqdigqd-[id number] labs-incre ase po fluids-monitor blood pressure and pulse-return Tuesday for blood pressure check Hypothyroidism - pt with chronic hypothyroidism, continue with current medication, will monitor pt to signs or symptoms of lack of adequate supplementation. Pt is to continue with current dose of medication unless directed otherwise. Check labs at regular intervals wither q 3 months or q 6 months based on previous levels of control. Dysuria-check UA today . Hypothyroidism - p t with chronic hypothyroidism, continue with current medication, will monitor pt to signs or symptoms of lack of adequate supplementation. Pt is to continue with current dose of medication unless directed otherwise. Check labs at regular intervals wither q 3 months or q 6 months based on previous levels of control. Bipolar Mood disorder - it appears that the patient may be having worsening manic episodes, and paranoia - the patient admits that she has kicked her out of the house again due to her concern that her is "having an affair" again with a neighbor. I have recommended pt to have labs to see if she has enough depakote in her system. We will send a copy of her labs to the psychiatrist. Hypertension - well controlled - continue with current medications, continue with no added salt diet. Pt has been encouraged to exercise daily. The pt has been advised to call the office if there are any acute concerns about change in blood pressure readings at home. . DM-diabetes and di et education discussed in detal with patient today in the office-handouts also provided-patient verbalized understanding. Allergies - chronic - recommended pt to use allergy medication as prescribed. Pt has been counseled as the the appropriate use of the medication. Pt to call if allergy symptoms are not controlled with the medication. If using nasal spray, instructions as follows: Nasal spray- use twice daily, one spray per nostril twice daily, after 30 minutes, rinse out nose with saline spray.. Use opposite hand per nostril to spray in the nasal steroid allergy spray. Kenalog injection today in the office. . Back pain - recomm ended heat, tiger balm to upper back, stretching exercises, and hand out given to pt. Recommended weight loss, and better breast support to help decrease strain on upper shoulder/upper back muscles. Bipolar Mood disorder -pt relatively stable, continue with current regimen - needs labs before next appt, need to check depakote level. Anxiety - relatively stable. Scab - pt to use neosporin over the lesion, call if not healing. . Bipolar Mood Disor radha with Manic and Depression symptoms - pt reports that she has not been sleeping well, but since change in her medications she feels as if she is doing better. She reports that she will be seeing the father separate from her so that she can get counseling. She reports that she will not be seeing the physician in [place] any more - had actually stopped seeing the physician in [place] as of 2-3 weeks ago. She will be seeing Dr. Cabrera in [place]. zyrtec 10mg daily . Hypertension - well controlled - eugenia nue with current medications, continue with no added salt diet. Pt has been encouraged to exercise daily. The pt has been advised to call the office if there are any acute concerns about change in blood pressure readings at home. Allergies - chronic - recommended pt to use allergy medication as prescribed. Pt has been counseled as to the appropriate use of the medication. Pt to call if allergy symptoms are not controlled with the medication. If using nasal spray, instructions as follows: Nasal spray- use twice daily, one spray per nostril twice daily, after 30 minutes, rinse out nose with saline spray.. Use opposite hand per nostril to spray in the nasal steroid allergy spray. Bipolar-symptoms stable-no changes-call with any concerns. . Hypothyroidism - p t with chronic hypothyroidism, continue with current medication, will monitor pt to signs or symptoms of lack of adequate supplementation. Pt is to continue with current dose of medication unless directed otherwise. Check labs at regular intervals wither q 3 months or q 6 months based on previous levels of control. Bipolar, depression-patients sees Dr Valencia-recent inpatient stay at [facility]-now on [place] and doing well-no changes at this time. Influenza vaccine today in the office . Hypertension - wel l controlled - continue with current medications, continue with no added salt diet. Pt has been encouraged to exercise daily. The pt has been advised to call the office if there are any acute concerns about change in blood pressure readings at home. . Hypertension - wel l controlled - continue with current medications, continue with no added salt diet. Pt has been encouraged to exercise daily. The pt has been advised to call the office if there are any acute concerns about change in blood pressure readings at home. Bipolar Mood disorder -symptoms improved with current medications-no changes- follow up in 1 month, sooner if needed Comment . Rash-culture today in the office-RX for diflucan and nystatin-triamcinolone cream to patients pharmacy and isntructed on use. We will call Tuesday with culture results-let us know if the rash is not better. Call if rash worsens, or does not resolve. Patient verbalized understanding of plan. . Hypertension - wel l controlled - continue with current medications, continue with no added salt diet. Pt has been encouraged to exercise daily. The pt has been advised to call the office if there are any acute concerns about change in blood pressure readings at home. . URI - Pt advised t o increase fluids, vitamin C. Discussed natural and expected course of this diagnosis and need to alert me if symtpoms do not follow expected course, or if any worse. RX sent to patient's pharmacy. Rocephin injection today in the office. Allergies - chronic - recommended pt to use allergy medication as prescribed. Pt has been counseled as the the appropriate use of the medication. Pt to call if allergy symptoms are not controlled with the medication. Kenalog injection today in the office. . Bipolar Mood disor radha - symptoms improved with switch to seroquel-make appt for counseling-no change in medications-call me if symptoms ANY or new symptoms develop. Follow up in the office in 2 weeks, sooner if needed. Patient verbalized understanding of plan. HOLD ATORVASTATIN/LI PITOR X 2 WEEK . Rash-uncertain etiology-Dr Littlejohn in to evaluate patient-plan to hold atorvastatin, use hydroxyzine as needed for itching. Instructed patient to call if symptoms do not improve, if any worse or new symptoms develop. Follow up in the office in 2 weeks, sooner if needed. Patient verbalized understanding of plan. Tetanus shot given t michelle in office. Take antiboitic as prescribed. Take probiotic while taking antibiotic. . Dog bite- Start antibiotic today. RX s ent to pt's pharmacy. Pt has been instructed to take probiotic while on antibiotic. Tetanus shot given today in office. Pt instructed to call or return to clinic if symptoms worsen. Verbalizes understanding. Dysuria- UA negative. Increase water intake. Return if symptoms worsen or persist. . URI - Pt advised t o increase fluids, vitamin C. Discussed natural and expected course of this diagnosis and need to alert me if symtpoms do not follow expected course, or if any worse. RX sent to patient's pharmacy. Rocephin injection today in the office. Allergies - chronic - recommended pt to use allergy medication as prescribed. Pt has been counseled as the the appropriate use of the medication. Pt to call if allergy symptoms are not controlled with the medication. Kenalog injection today in the office. . Fracture of left h eel-gait instability-seeing Dr Artis-no surgery required-patient is using wheelchair or walker with stand by [facility] to continue working with her. Aijrgkaqx-syfmkat-wrqyoakw daily anti histamine . Hypertension - wel l controlled - continue with current medications, continue with no added salt diet. Pt has been encouraged to exercise daily. The pt has been advised to call the office if there are any acute concerns about change in blood pressure readings at home. Hyperlipidemia - pt has been counseled about appropriate diet, exercise, and need for low fat food choices. I have discussed the need for the patient to take medications as prescribed. If the patient has negative side effects from the medication, they are to CALL the office and not abruptly discontinue the medication without discussion with a practicioner in the office. We will check labs in 3-6 months for follow up on the patient's chronic medical problem and to assure normal liver response to medications. . Breast pain - orde red mammogram and ultrasound. STOP WEARING UNDERWIRE BRAS. Depression - worsening - recommended pt to talk to her psychiatrist AMRITA. If she cannot get ahold of the psychiatrist this week, call the office here and we will probably have her restart her lexapro at 5mg daily. Hyperlipidemia - pt has been counseled about appropriate diet, exercise, and need for low fat food choices. I have discussed the need for the patient to take medications as prescribed. If the patient has negative side effects from the medication, they are to CALL the office and not abruptly discontinue the medication without discussion with a practicioner in the office. We will check labs in 3-6 months for follow up on the patient's chronic medical problem and to assure normal liver response to medications. Hypothyroidism - pt with chronic hypothyroidism, continue with current medication, will monitor pt to signs or symptoms of lack of adequate supplementation. Pt is to continue with current dose of medication unless directed otherwise. Check labs at regular intervals wither q 3 months or q 6 months based on previous levels of control. STAY OFF ATORVASTATI N X 2 MORE WEEKS-IF YOUR RASH DOESN'T RETURN, RESTART EVERY OTHER DAY . Hypertension - well controlled - eugenia nue with current medications, continue with no added salt diet. Pt has been encouraged to exercise daily. The pt has been advised to call the office if there are any acute concerns about change in blood pressure readings at home. Chronic Depression and anxiety - the pt has symptoms of chronic anxiety and depression that have been fairly well controlled since the last office visit. The pt has expected periods of exacerbation with abatement of the symptoms with change in situational exposure. No change in current medications. Rash-resolved Flonase . Bipolar-symptoms controlled-check depa kote level today Hypertension - well controlled - continue with current medications, continue with no added salt diet. Pt has been encouraged to exercise daily. The pt has been advised to call the office if there are any acute concerns about change in blood pressure readings at home. Hypothyroidism - pt with chronic hypothyroidism, continue with current medication, will monitor pt to signs or symptoms of lack of adequate supplementation. Pt is to continue with current dose of medication unless directed otherwise. Check labs at regular intervals wither q 3 months or q 6 months based on previous levels of control. Allergies - chronic - recommended pt to use allergy medication as prescribed. Pt has been counseled as to the appropriate use of the medication. Pt to call if allergy symptoms are not controlled with the medication. If using nasal spray, instructions as follows: Nasal spray- use twice daily, one spray per nostril twice daily, after 30 minutes, rinse out nose with saline spray.. Use opposite hand per nostril to spray in the nasal steroid allergy spray. Dysuria-UA negative-monitor symptoms . URI - Pt advised t o increase fluids, vitamin C. Discussed natural and expected course of this diagnosis and need to alert me if symptoms do not follow expected course, or if any worse. RX sent to patient's pharmacy. Allergies-kenalog injection today in the office. Edema - pt has been advised to elevate legs to prevent dependent edema, compression has been recommended to help to naturally decrease peripheral edema. Diuretic use has been discussed and pt has been instructed in appropriate use of such medication as necessary to further attempt to reduce peripheral edema. . Hypothyroidism - p t with chronic hypothyroidism, continue with current medication, will monitor pt to signs or symptoms of lack of adequate supplementation. Pt is to continue with current dose of medication unless directed otherwise. Check labs at regular intervals wither q 3 months or q 6 months based on previous levels of control. Chronic Depression and anxiety - the pt has symptoms of chronic anxiety and depression that have been fairly well controlled since the last office visit. The pt has expected periods of exacerbation with abatement of the symptoms with change in situational exposure. No change in current medications. . Edema - pt has bee n advised to elevate legs to prevent dependent edema, compression has been recommended to help to naturally decrease peripheral edema. Diuretic use has been discussed and pt has been instructed in appropriate use of such medication as necessary to further attempt to reduce peripheral edema. TAKE LASIX AND POTASSIUM DAILY X 3 DAYS AND CALL WITH UPDATE ON SYMPTOMS. Left ankle pain-much improved-use cooper wrap during the day for compression-rest and elevated leg. . Bipolar Mood disor radha - pt states that she feels better since her evaluation and management at the facility - pt states that she feels more stable, still having some concerns and worries about her and his "activities" but she feels more stable than prior to her hospitalization. Hypothyroidism - pt with chronic hypothyroidism, continue with current medication, will monitor pt to signs or symptoms of lack of adequate supplementation. Pt is to continue with current dose of medication unless directed otherwise. Check labs at regular intervals wither q 3 months or q 6 months based on previous levels of control. . Mastodynia improve d - continue with no underwire bras and call if symptoms return. Chronic Depression and anxiety - the pt has symptoms of chronic anxiety and depression that have been fairly well controlled since the last office visit. The pt has expected periods of exacerbation with abatement of the symptoms with change in situational exposure. No change in current medications. Abrasion on finger - silvadene prn. Flatulence- start on cultrelle for the bowels, stop using in a week restart if the symptoms return. . Hypothyroidism - p t with chronic hypothyroidism, continue with current medication, will monitor pt to signs or symptoms of lack of adequate supplementation. Pt is to continue with current dose of medication unless directed otherwise. Check labs at regular intervals wither q 3 months or q 6 months based on previous levels of control. Hyperlipidemia - pt has been counseled about appropriate diet, exercise, and need for low fat food choices. I have discussed the need for the patient to take medications as prescribed. If the patient has negative side effects from the medication, they are to CALL the office and not abruptly discontinue the medication without discussion with a practicioner in the office. We will check labs in 3-6 months for follow up on the patient's chronic medical problem and to assure normal liver response to medications. Chronic Depression and anxiety - the pt has symptoms of chronic anxiety and depression that have been fairly well controlled since the last office visit. The pt has expected periods of exacerbation with abatement of the symptoms with change in situational exposure. No change in current medications. Per pt report, she was told that her vitamin D level was low - she was informed that her vitamin d level will be reviewed and if needed a script called out to [facility]. Appointment with Dr. Littlejohn in January. . Muscle strain/back pain- Biofreeze olga lied to shoulders and back muscles in office. Pt to continue Biofreeze at home along with NSAID pain relief PRN. If no improvement in symptoms in 2 weeks, pt to call office for further evaluation. Pt states she will consider a steroid injection for her lower back pain but would prefer to try a more conservative Return to clinic or call sooner if symptoms worsen or for acute problems. Vaginal yeast infection- RX to pharmacy. Pt encouraged to continue use of probiotic as well. Call or return to clinic if symptoms persist or worsen. . URI - Pt advised t o increase fluids, vitamin C. Discussed natural and expected course of this diagnosis and need to alert me if symptoms do not follow expected course, or if any worse. RX sent to patient's pharmacy. Bipolar-symptoms stable-no changes . Hypertension - wel l controlled - continue with current medications, continue with no added salt diet. Pt has been encouraged to exercise daily. The pt has been advised to call the office if there are any acute concerns about change in blood pressure readings at home. Obesity - chronic issue with this patient. The pt has been counseled about diet changes, calorie restriction, and need to exercise. Pt will RTC in one month for weight check. First goal weight for TOPS is 190# Urinary frequency-check UA . Edema - pt has bee n advised to elevate legs to prevent dependent edema, compression has been recommended to help to naturally decrease peripheral edema. Diuretic use has been discussed and pt has been instructed in appropriate use of such medication as necessary to further attempt to reduce peripheral edema. Pt to use spironolactone 25mg daily and monitor symptoms. . Hypothyroidism - p t with chronic hypothyroidism, continue with current medication, will monitor pt to signs or symptoms of lack of adequate supplementation. Pt is to continue with current dose of medication unless directed otherwise. Check labs at regular intervals wither q 3 months or q 6 months based on previous levels of control. Chronic Depression and anxiety - the pt has symptoms of chronic anxiety and depression that have been fairly well controlled since the last office visit. The pt has expected periods of exacerbation with abatement of the symptoms with change in situational exposure. No change in current medications. Elevated fasting glucose - monitor blood glucose levels, check hgba1c. change generic lexap ro to bedtime dosing. change the spironolactone to 1 pill three days a week . Hypertension - well controlled - eugenia nue with current medications, continue with no added salt diet. Pt has been encouraged to exercise daily. The pt has been advised to call the office if there are any acute concerns about change in blood pressure readings at home. Edema - pt has been advised to elevate legs to prevent dependent edema, compression has been recommended to help to naturally decrease peripheral edema. Diuretic use has been discussed and pt has been instructed in appropriate use of such medication as necessary to further attempt to reduce peripheral edema. Pt to start on spironolactone - monitor edema, and call if symptoms uncontrolled. Bipolar mood disorder - change lexapro to bedtime dosing, monitor symptoms of depression and bipolar manic/paranoia symptoms and call if pt starts to have worsening of anxiety/paranoia. Increase omeprazole to twice daily . Esophageal Reflux - the patient has be en counseled against excessive intake of caffeine, spicy foods, peppermint, and cinnamon - all of which can exacerbate esophageal reflux. The patient is to take medications as prescribed and call the office if the symptoms are not improving. Hypertension - well controlled - continue with current medications, continue with no added salt diet. Pt has been encouraged to exercise daily. The pt has been advised to call the office if there are any acute concerns about change in blood pressure readings at home. Chronic Depression and anxiety - the pt has symptoms of chronic anxiety and depression that have been fairly well controlled since the last office visit. The pt has expected periods of exacerbation with abatement of the symptoms with change in situational exposure. No change in current medications. . Seborrheic keratos is-not inflamed today in the office-if becomes irritated or inflamed, will plan for removal. Patient verbalized understanding of plan. . Pharyngitis-Discus sed natural and expected course of this diagnosis and need to alert me if symtpoms do not follow expected course, or if any worse. Recommended salt water gargles as needed for pain. Tylenol/motrin as needed for fever/discomfort. Allergies - chronic - recommended pt to use allergy medication as prescribed. Pt has been counseled as to the appropriate use of the medication. Pt to call if allergy symptoms are not controlled with the medication. If using nasal spray, instructions as follows: Nasal spray- use twice daily, one spray per nostril twice daily, after 30 minutes, rinse out nose with saline spray.. Use opposite hand per nostril to spray in the nasal steroid allergy spray. Kenalog injection today in the office get thyroid studies befor next office visit. Hypothyroidism - pt with chronic hypothyroidism, continue with current medication, will monitor pt to signs or symptoms of lack of adequate supplementation. Pt is to continue with current dose of medication unless directed otherwise. Check labs at regular intervals wither q 3 months or q 6 months based on previous levels of control. brand name thyroid medication 75 mcg daily Hyperlipidemia - pt has been counseled about appropriate diet, exercise, and need for low fat food choices. I have discussed the need for the patient to take medications as prescribed. If the patient has negative side effects from the medication, they are to CALL the office and not abruptly discontinue the medication without discussion with a practicioner in the office. We will check labs in 3-6 months for follow up on the patient's chronic medical problem and to assure normal liver response to medications.Restart lipitor at current dose on tuesday, tuesday, fridays.. Call if the aches return. Motrin twice daily for a week. Osteoarthritis - aspercreme to the joint Chronic Depression and anxiety - the pt has symptoms of chronic anxiety and depression that have been fairly well controlled since the last office visit. The pt has expected periods of exacerbation with abatement of the symptoms with change in situational exposure. No change in current medications. INCREASE EFFEXOR TO 75MG DAILY . Bipolar Mood disorder - it appears sandra t the patient may be having worsening manic episodes, and paranoia - discussed with Dr Littlejohn-recommend inpatient treatment-patient declines at this time-will increase effexor to 75mg daily and recommend patient follow up with psychiatrist this week. Call me if symptoms ANY or new symptoms develop. Follow up in the office in 2 weeks, sooner if needed. Patient verbalized understanding of plan. Hypertension -slightly elevated today - continue with current medications, continue with no added salt diet. Pt has been encouraged to exercise daily. The pt has been advised to call the office if there are any acute concerns about change in blood pressure readings at home. . Hypertension - wel l controlled - continue with current medications, continue with no added salt diet. Pt has been encouraged to exercise daily. The pt has been advised to call the office if there are any acute concerns about change in blood pressure readings at home. Bipolar depression-managed by Dr Valencia-doing well on current medications . Medicare Exam - to day we discussed the patients past history, immunizations, preventative exams/evaluations - colonoscopy, fecal occult blood testing (cards sent home with patient) routine labs for renal function, glucose, cholesterol, osteoporosis evaluations, cardiovascular testing and cancer screenings. We have also discussed mental health and the signs/symptoms of depression. The patient was advised of home safety evaluations and the need to make sure that as the aging process continues, we need to be aware of different ways to make the home a safer place to reside. The patient has also been counseled that exercise is necessary - and of utmost importance as we age to help decrease fall risk and to maintain independence in the home. Today we discussed the need for the patient to create paperwork for Advanced directives as well as for the patient to provide this office with a copy of her DOP[employer] paperwork for health care surrogate. hold lipitor x 2 wee ks check labs at [facility] ibuprofen 400mg twice daily x 7 days DRINK LOTS of water - at least 16 ounces with each dose of ibuprofen (motrin) you need to get a deep tissue massage. heat to neck and lower back tiger balm for your neck and back muscles. . hold lipitor x 2 weeks check labs at [facility] ibuprofen 400mg twice daily x 7 days DRINK LOTS of water - at least 16 ounces with each dose of ibuprofen (motrin) you need to get a deep tissue massage. heat to neck and lower back tiger balm for your neck and back muscles. FLU SWAB . Sinusitis - Pt has acute infection - pain in face, maxillary region, Pt informed to use decongestant, RX given to patient, sinus rinses also recommended. Call if symptoms do not show improvement. Fasting labs. Hypert ension - well controlled - continue with current medications, continue with no added salt diet. Pt has been encouraged to exercise daily. The pt has been advised to call the office if there are any acute concerns about change in blood pressure readings at home. Bipolar depression-symptoms stable-seeing Dr Valencia for outpatient treatment TSH, Free T4, CBC, C MP, vitamin D level BRING YOUR BLOOD PRESSURE MACHINE TUESDAY AND WE'LL CHECK YOUR BLOOD PRESSURE AND YOUR MACHINE . Kvadhxvoxft-ccagdpbrk-tcrzu labs-incre ase po fluids-monitor blood pressure and pulse-return Tuesday for blood pressure check Hypothyroidism - pt with chronic hypothyroidism, continue with current medication, will monitor pt to signs or symptoms of lack of adequate supplementation. Pt is to continue with current dose of medication unless directed otherwise. Check labs at regular intervals wither q 3 months or q 6 months based on previous levels of control. Dysuria-check UA today . Hypothyroidism - p t with chronic hypothyroidism, continue with current medication, will monitor pt to signs or symptoms of lack of adequate supplementation. Pt is to continue with current dose of medication unless directed otherwise. Check labs at regular intervals wither q 3 months or q 6 months based on previous levels of control. Bipolar Mood disorder - it appears that the patient may be having worsening manic episodes, and paranoia - the patient admits that she has kicked her out of the house again due to her concern that her is "having an affair" again with a neighbor. I have recommended pt to have labs to see if she has enough depakote in her system. We will send a copy of her labs to the psychiatrist. Hypertension - well controlled - continue with current medications, continue with no added salt diet. Pt has been encouraged to exercise daily. The pt has been advised to call the office if there are any acute concerns about change in blood pressure readings at home. . DM-diabetes and di et education discussed in detal with patient today in the office-handouts also provided-patient verbalized understanding. Allergies - chronic - recommended pt to use allergy medication as prescribed. Pt has been counseled as the the appropriate use of the medication. Pt to call if allergy symptoms are not controlled with the medication. If using nasal spray, instructions as follows: Nasal spray- use twice daily, one spray per nostril twice daily, after 30 minutes, rinse out nose with saline spray.. Use opposite hand per nostril to spray in the nasal steroid allergy spray. Kenalog injection today in the office. . Back pain - recomm ended heat, tiger balm to upper back, stretching exercises, and hand out given to pt. Recommended weight loss, and better breast support to help decrease strain on upper shoulder/upper back muscles. Bipolar Mood disorder -pt relatively stable, continue with current regimen - needs labs before next appt, need to check depakote level. Anxiety - relatively stable. Scab - pt to use neosporin over the lesion, call if not healing. . Bipolar Mood Disor radha with Manic and Depression symptoms - pt reports that she has not been sleeping well, but since change in her medications she feels as if she is doing better. She reports that she will be seeing the father separate from her so that she can get counseling. She reports that she will not be seeing the physician in [place] any more - had actually stopped seeing the physician in [place] as of 2-3 weeks ago. She will be seeing Dr. Cabrera in [place]. . UTI - pt with posi tive urinalysis - culture sent if appropriate. Antibiotic electronically prescribed to pt's pharmacy of choice. Pt to call if symptoms do not improve. zyrtec 10mg daily . Hypertension - well controlled - eugenia nue with current medications, continue with no added salt diet. Pt has been encouraged to exercise daily. The pt has been advised to call the office if there are any acute concerns about change in blood pressure readings at home. Allergies - chronic - recommended pt to use allergy medication as prescribed. Pt has been counseled as to the appropriate use of the medication. Pt to call if allergy symptoms are not controlled with the medication. If using nasal spray, instructions as follows: Nasal spray- use twice daily, one spray per nostril twice daily, after 30 minutes, rinse out nose with saline spray.. Use opposite hand per nostril to spray in the nasal steroid allergy spray. Bipolar-symptoms stable-no changes-call with any concerns. . Hypothyroidism - p t with chronic hypothyroidism, continue with current medication, will monitor pt to signs or symptoms of lack of adequate supplementation. Pt is to continue with current dose of medication unless directed otherwise. Check labs at regular intervals wither q 3 months or q 6 months based on previous levels of control. Bipolar, depression-patients sees Dr Valencia-recent inpatient stay at [facility]-now on [place]uda and doing well-no changes at this time. Influenza vaccine today in the office . Hypertension - wel l controlled - continue with current medications, continue with no added salt diet. Pt has been encouraged to exercise daily. The pt has been advised to call the office if there are any acute concerns about change in blood pressure readings at home. . Hypertension - wel l controlled - continue with current medications, continue with no added salt diet. Pt has been encouraged to exercise daily. The pt has been advised to call the office if there are any acute concerns about change in blood pressure readings at home. Bipolar Mood disorder -symptoms improved with current medications-no changes- follow up in 1 month, sooner if needed Comment Flonase . Bipolar-symptoms controlled-check depa kote level today Hypertension - well controlled - continue with current medications, continue with no added salt diet. Pt has been encouraged to exercise daily. The pt has been advised to call the office if there are any acute concerns about change in blood pressure readings at home. Hypothyroidism - pt with chronic hypothyroidism, continue with current medication, will monitor pt to signs or symptoms of lack of adequate supplementation. Pt is to continue with current dose of medication unless directed otherwise. Check labs at regular intervals wither q 3 months or q 6 months based on previous levels of control. Allergies - chronic - recommended pt to use allergy medication as prescribed. Pt has been counseled as to the appropriate use of the medication. Pt to call if allergy symptoms are not controlled with the medication. If using nasal spray, instructions as follows: Nasal spray- use twice daily, one spray per nostril twice daily, after 30 minutes, rinse out nose with saline spray.. Use opposite hand per nostril to spray in the nasal steroid allergy spray. Dysuria-UA negative-monitor symptoms . Bipolar Mood disor radha - pt states that she feels better since her evaluation and management at the facility - pt states that she feels more stable, still having some concerns and worries about her and his "activities" but she feels more stable than prior to her hospitalization. Hypothyroidism - pt with chronic hypothyroidism, continue with current medication, will monitor pt to signs or symptoms of lack of adequate supplementation. Pt is to continue with current dose of medication unless directed otherwise. Check labs at regular intervals wither q 3 months or q 6 months based on previous levels of control. . Edema - pt has bee n advised to elevate legs to prevent dependent edema, compression has been recommended to help to naturally decrease peripheral edema. Diuretic use has been discussed and pt has been instructed in appropriate use of such medication as necessary to further attempt to reduce peripheral edema. Pt to use spironolactone 25mg daily and monitor symptoms. . Hypertension - wel l controlled - continue with current medications, continue with no added salt diet. Pt has been encouraged to exercise daily. The pt has been advised to call the office if there are any acute concerns about change in blood pressure readings at home. Obesity - chronic issue with this patient. The pt has been counseled about diet changes, calorie restriction, and need to exercise. Pt will RTC in one month for weight check. First goal weight for TOPS is 190# Urinary frequency-check UA . URI - Pt advised t o increase fluids, vitamin C. Discussed natural and expected course of this diagnosis and need to alert me if symptoms do not follow expected course, or if any worse. RX sent to patient's pharmacy. Bipolar-symptoms stable-no changes Appointment with Dr. Littlejohn in January. . Muscle strain/back pain- Biofreeze olga lied to shoulders and back muscles in office. Pt to continue Biofreeze at home along with NSAID pain relief PRN. If no improvement in symptoms in 2 weeks, pt to call office for further evaluation. Pt states she will consider a steroid injection for her lower back pain but would prefer to try a more conservative Return to clinic or call sooner if symptoms worsen or for acute problems. Vaginal yeast infection- RX to pharmacy. Pt encouraged to continue use of probiotic as well. Call or return to clinic if symptoms persist or worsen. . Hypothyroidism - p t with chronic hypothyroidism, continue with current medication, will monitor pt to signs or symptoms of lack of adequate supplementation. Pt is to continue with current dose of medication unless directed otherwise. Check labs at regular intervals wither q 3 months or q 6 months based on previous levels of control. Hyperlipidemia - pt has been counseled about appropriate diet, exercise, and need for low fat food choices. I have discussed the need for the patient to take medications as prescribed. If the patient has negative side effects from the medication, they are to CALL the office and not abruptly discontinue the medication without discussion with a practicioner in the office. We will check labs in 3-6 months for follow up on the patient's chronic medical problem and to assure normal liver response to medications. Chronic Depression and anxiety - the pt has symptoms of chronic anxiety and depression that have been fairly well controlled since the last office visit. The pt has expected periods of exacerbation with abatement of the symptoms with change in situational exposure. No change in current medications. Per pt report, she was told that her vitamin D level was low - she was informed that her vitamin d level will be reviewed and if needed a script called out to [facility]. . Mastodynia improve d - continue with no underwire bras and call if symptoms return. Chronic Depression and anxiety - the pt has symptoms of chronic anxiety and depression that have been fairly well controlled since the last office visit. The pt has expected periods of exacerbation with abatement of the symptoms with change in situational exposure. No change in current medications. Abrasion on finger - silvadene prn. Flatulence- start on cultrelle for the bowels, stop using in a week restart if the symptoms return. . Edema - pt has bee n advised to elevate legs to prevent dependent edema, compression has been recommended to help to naturally decrease peripheral edema. Diuretic use has been discussed and pt has been instructed in appropriate use of such medication as necessary to further attempt to reduce peripheral edema. TAKE LASIX AND POTASSIUM DAILY X 3 DAYS AND CALL WITH UPDATE ON SYMPTOMS. Left ankle pain-much improved-use cooper wrap during the day for compression-rest and elevated leg. . Hypothyroidism - p t with chronic hypothyroidism, continue with current medication, will monitor pt to signs or symptoms of lack of adequate supplementation. Pt is to continue with current dose of medication unless directed otherwise. Check labs at regular intervals wither q 3 months or q 6 months based on previous levels of control. Chronic Depression and anxiety - the pt has symptoms of chronic anxiety and depression that have been fairly well controlled since the last office visit. The pt has expected periods of exacerbation with abatement of the symptoms with change in situational exposure. No change in current medications. . URI - Pt advised t o increase fluids, vitamin C. Discussed natural and expected course of this diagnosis and need to alert me if symptoms do not follow expected course, or if any worse. RX sent to patient's pharmacy. Allergies-kenalog injection today in the office. Edema - pt has been advised to elevate legs to prevent dependent edema, compression has been recommended to help to naturally decrease peripheral edema. Diuretic use has been discussed and pt has been instructed in appropriate use of such medication as necessary to further attempt to reduce peripheral edema. STAY OFF ATORVASTATI N X 2 MORE WEEKS-IF YOUR RASH DOESN'T RETURN, RESTART EVERY OTHER DAY . Hypertension - well controlled - eugenia nue with current medications, continue with no added salt diet. Pt has been encouraged to exercise daily. The pt has been advised to call the office if there are any acute concerns about change in blood pressure readings at home. Chronic Depression and anxiety - the pt has symptoms of chronic anxiety and depression that have been fairly well controlled since the last office visit. The pt has expected periods of exacerbation with abatement of the symptoms with change in situational exposure. No change in current medications. Rash-resolved . Breast pain - orde red mammogram and ultrasound. STOP WEARING UNDERWIRE BRAS. Depression - worsening - recommended pt to talk to her psychiatrist AMRITA. If she cannot get ahold of the psychiatrist this week, call the office here and we will probably have her restart her lexapro at 5mg daily. Hyperlipidemia - pt has been counseled about appropriate diet, exercise, and need for low fat food choices. I have discussed the need for the patient to take medications as prescribed. If the patient has negative side effects from the medication, they are to CALL the office and not abruptly discontinue the medication without discussion with a practicioner in the office. We will check labs in 3-6 months for follow up on the patient's chronic medical problem and to assure normal liver response to medications. Hypothyroidism - pt with chronic hypothyroidism, continue with current medication, will monitor pt to signs or symptoms of lack of adequate supplementation. Pt is to continue with current dose of medication unless directed otherwise. Check labs at regular intervals wither q 3 months or q 6 months based on previous levels of control. . Hypertension - wel l controlled - continue with current medications, continue with no added salt diet. Pt has been encouraged to exercise daily. The pt has been advised to call the office if there are any acute concerns about change in blood pressure readings at home. Hyperlipidemia - pt has been counseled about appropriate diet, exercise, and need for low fat food choices. I have discussed the need for the patient to take medications as prescribed. If the patient has negative side effects from the medication, they are to CALL the office and not abruptly discontinue the medication without discussion with a practicioner in the office. We will check labs in 3-6 months for follow up on the patient's chronic medical problem and to assure normal liver response to medications. . Fracture of left h eel-gait instability-seeing Dr Artis-no surgery required-patient is using wheelchair or walker with stand by assist-home health to continue working with her. Dofbkvhxo-szquwnb-pudgbmig daily anti histamine . URI - Pt advised t o increase fluids, vitamin C. Discussed natural and expected course of this diagnosis and need to alert me if symtpoms do not follow expected course, or if any worse. RX sent to patient's pharmacy. Rocephin injection today in the office. Allergies - chronic - recommended pt to use allergy medication as prescribed. Pt has been counseled as the the appropriate use of the medication. Pt to call if allergy symptoms are not controlled with the medication. Kenalog injection today in the office. Tetanus shot given t michelle in office. Take antiboitic as prescribed. Take probiotic while taking antibiotic. . Dog bite- Start antibiotic today. RX s ent to pt's pharmacy. Pt has been instructed to take probiotic while on antibiotic. Tetanus shot given today in office. Pt instructed to call or return to clinic if symptoms worsen. Verbalizes understanding. Dysuria- UA negative. Increase water intake. Return if symptoms worsen or persist. HOLD ATORVASTATIN/LI PITOR X 2 WEEK . Rash-uncertain etiology-Dr Littlejohn in to evaluate patient-plan to hold atorvastatin, use hydroxyzine as needed for itching. Instructed patient to call if symptoms do not improve, if any worse or new symptoms develop. Follow up in the office in 2 weeks, sooner if needed. Patient verbalized understanding of plan. . Bipolar Mood disor radha - symptoms improved with switch to seroquel-make appt for counseling-no change in medications-call me if symptoms ANY or new symptoms develop. Follow up in the office in 2 weeks, sooner if needed. Patient verbalized understanding of plan. . URI - Pt advised t o increase fluids, vitamin C. Discussed natural and expected course of this diagnosis and need to alert me if symtpoms do not follow expected course, or if any worse. RX sent to patient's pharmacy. Rocephin injection today in the office. Allergies - chronic - recommended pt to use allergy medication as prescribed. Pt has been counseled as the the appropriate use of the medication. Pt to call if allergy symptoms are not controlled with the medication. Kenalog injection today in the office. FLU SWAB . Sinusitis - Pt has acute infection - pain in face, maxillary region, Pt informed to use decongestant, RX given to patient, sinus rinses also recommended. Call if symptoms do not show improvement. . Hypertension - wel l controlled - continue with current medications, continue with no added salt diet. Pt has been encouraged to exercise daily. The pt has been advised to call the office if there are any acute concerns about change in blood pressure readings at home. . Rash-culture today in the office-RX for diflucan and nystatin-triamcinolone cream to patients pharmacy and isntructed on use. We will call Tuesday with culture results-let us know if the rash is not better. Call if rash worsens, or does not resolve. Patient verbalized understanding of plan. . Hypothyroidism - p t with chronic hypothyroidism, continue with current medication, will monitor pt to signs or symptoms of lack of adequate supplementation. Pt is to continue with current dose of medication unless directed otherwise. Check labs at regular intervals wither q 3 months or q 6 months based on previous levels of control. Chronic Depression and anxiety - the pt has symptoms of chronic anxiety and depression that have been fairly well controlled since the last office visit. The pt has expected periods of exacerbation with abatement of the symptoms with change in situational exposure. No change in current medications. Elevated fasting glucose - monitor blood glucose levels, check hgba1c. change generic lexap ro to bedtime dosing. change the spironolactone to 1 pill three days a week . Hypertension - well controlled - eugenia nue with current medications, continue with no added salt diet. Pt has been encouraged to exercise daily. The pt has been advised to call the office if there are any acute concerns about change in blood pressure readings at home. Edema - pt has been advised to elevate legs to prevent dependent edema, compression has been recommended to help to naturally decrease peripheral edema. Diuretic use has been discussed and pt has been instructed in appropriate use of such medication as necessary to further attempt to reduce peripheral edema. Pt to start on spironolactone - monitor edema, and call if symptoms uncontrolled. Bipolar mood disorder - change lexapro to bedtime dosing, monitor symptoms of depression and bipolar manic/paranoia symptoms and call if pt starts to have worsening of anxiety/paranoia. Increase omeprazole to twice daily . Esophageal Reflux - the patient has be en counseled against excessive intake of caffeine, spicy foods, peppermint, and cinnamon - all of which can exacerbate esophageal reflux. The patient is to take medications as prescribed and call the office if the symptoms are not improving. Hypertension - well controlled - continue with current medications, continue with no added salt diet. Pt has been encouraged to exercise daily. The pt has been advised to call the office if there are any acute concerns about change in blood pressure readings at home. Chronic Depression and anxiety - the pt has symptoms of chronic anxiety and depression that have been fairly well controlled since the last office visit. The pt has expected periods of exacerbation with abatement of the symptoms with change in situational exposure. No change in current medications. . Bipolar Mood Disor radha with Manic and Depression symptoms - pt reports that she has not been sleeping well, but since change in her medications she feels as if she is doing better. She reports that she will be seeing the father separate from her so that she can get counseling. She reports that she will not be seeing the physician in [place] any more - had actually stopped seeing the physician in [place] as of 2-3 weeks ago. She will be seeing Dr. Cabrera in [place]. zyrtec 10mg daily . Hypertension - well controlled - eugenia nue with current medications, continue with no added salt diet. Pt has been encouraged to exercise daily. The pt has been advised to call the office if there are any acute concerns about change in blood pressure readings at home. Allergies - chronic - recommended pt to use allergy medication as prescribed. Pt has been counseled as to the appropriate use of the medication. Pt to call if allergy symptoms are not controlled with the medication. If using nasal spray, instructions as follows: Nasal spray- use twice daily, one spray per nostril twice daily, after 30 minutes, rinse out nose with saline spray.. Use opposite hand per nostril to spray in the nasal steroid allergy spray. Bipolar-symptoms stable-no changes-call with any concerns. . Seborrheic keratos is-not inflamed today in the office-if becomes irritated or inflamed, will plan for removal. Patient verbalized understanding of plan. . Pharyngitis-Discus sed natural and expected course of this diagnosis and need to alert me if symtpoms do not follow expected course, or if any worse. Recommended salt water gargles as needed for pain. Tylenol/motrin as needed for fever/discomfort. Allergies - chronic - recommended pt to use allergy medication as prescribed. Pt has been counseled as to the appropriate use of the medication. Pt to call if allergy symptoms are not controlled with the medication. If using nasal spray, instructions as follows: Nasal spray- use twice daily, one spray per nostril twice daily, after 30 minutes, rinse out nose with saline spray.. Use opposite hand per nostril to spray in the nasal steroid allergy spray. Kenalog injection today in the office get thyroid studies befor next office visit. Hypothyroidism - pt with chronic hypothyroidism, continue with current medication, will monitor pt to signs or symptoms of lack of adequate supplementation. Pt is to continue with current dose of medication unless directed otherwise. Check labs at regular intervals wither q 3 months or q 6 months based on previous levels of control. brand name thyroid medication 75 mcg daily Hyperlipidemia - pt has been counseled about appropriate diet, exercise, and need for low fat food choices. I have discussed the need for the patient to take medications as prescribed. If the patient has negative side effects from the medication, they are to CALL the office and not abruptly discontinue the medication without discussion with a practicioner in the office. We will check labs in 3-6 months for follow up on the patient's chronic medical problem and to assure normal liver response to medications.Restart lipitor at current dose on tuesday, tuesday, fridays.. Call if the aches return. Motrin twice daily for a week. Osteoarthritis - aspercreme to the joint Chronic Depression and anxiety - the pt has symptoms of chronic anxiety and depression that have been fairly well controlled since the last office visit. The pt has expected periods of exacerbation with abatement of the symptoms with change in situational exposure. No change in current medications. INCREASE EFFEXOR TO 75MG DAILY . Bipolar Mood disorder - it appears sandra t the patient may be having worsening manic episodes, and paranoia - discussed with Dr Littlejohn-recommend inpatient treatment-patient declines at this time-will increase effexor to 75mg daily and recommend patient follow up with psychiatrist this week. Call me if symptoms ANY or new symptoms develop. Follow up in the office in 2 weeks, sooner if needed. Patient verbalized understanding of plan. Hypertension -slightly elevated today - continue with current medications, continue with no added salt diet. Pt has been encouraged to exercise daily. The pt has been advised to call the office if there are any acute concerns about change in blood pressure readings at home. . Hypertension - wel l controlled - continue with current medications, continue with no added salt diet. Pt has been encouraged to exercise daily. The pt has been advised to call the office if there are any acute concerns about change in blood pressure readings at home. Bipolar depression-managed by Dr Valencia-doing well on current medications . Medicare Exam - to day we discussed the patients past history, immunizations, preventative exams/evaluations - colonoscopy, fecal occult blood testing (cards sent home with patient) routine labs for renal function, glucose, cholesterol, osteoporosis evaluations, cardiovascular testing and cancer screenings. We have also discussed mental health and the signs/symptoms of depression. The patient was advised of home safety evaluations and the need to make sure that as the aging process continues, we need to be aware of different ways to make the home a safer place to reside. The patient has also been counseled that exercise is necessary - and of utmost importance as we age to help decrease fall risk and to maintain independence in the home. Today we discussed the need for the patient to create paperwork for Advanced directives as well as for the patient to provide this office with a copy of her DOPA paperwork for health care surrogate. hold lipitor x 2 wee ks check labs at [facility] ibuprofen 400mg twice daily x 7 days DRINK LOTS of water - at least 16 ounces with each dose of ibuprofen (motrin) you need to get a deep tissue massage. heat to neck and lower back tiger balm for your neck and back muscles. . hold lipitor x 2 weeks check labs at [facility] ibuprofen 400mg twice daily x 7 days DRINK LOTS of water - at least 16 ounces with each dose of ibuprofen (motrin) you need to get a deep tissue massage. heat to neck and lower back tiger balm for your neck and back muscles. TSH, Free T4, CBC, C MP, vitamin D level BRING YOUR BLOOD PRESSURE MACHINE TUESDAY AND WE'LL CHECK YOUR BLOOD PRESSURE AND YOUR MACHINE . Qvtremxloel-brimtisrk-ojwlw labs-incre ase po fluids-monitor blood pressure and pulse-return Tuesday for blood pressure check Hypothyroidism - pt with chronic hypothyroidism, continue with current medication, will monitor pt to signs or symptoms of lack of adequate supplementation. Pt is to continue with current dose of medication unless directed otherwise. Check labs at regular intervals wither q 3 months or q 6 months based on previous levels of control. Dysuria-check UA today . Hypothyroidism - p t with chronic hypothyroidism, continue with current medication, will monitor pt to signs or symptoms of lack of adequate supplementation. Pt is to continue with current dose of medication unless directed otherwise. Check labs at regular intervals wither q 3 months or q 6 months based on previous levels of control. Bipolar Mood disorder - it appears that the patient may be having worsening manic episodes, and paranoia - the patient admits that she has kicked her out of the house again due to her concern that her is "having an affair" again with a neighbor. I have recommended pt to have labs to see if she has enough depakote in her system. We will send a copy of her labs to the psychiatrist. Hypertension - well controlled - continue with current medications, continue with no added salt diet. Pt has been encouraged to exercise daily. The pt has been advised to call the office if there are any acute concerns about change in blood pressure readings at home. . DM-diabetes and di et education discussed in detal with patient today in the office-handouts also provided-patient verbalized understanding. Allergies - chronic - recommended pt to use allergy medication as prescribed. Pt has been counseled as the the appropriate use of the medication. Pt to call if allergy symptoms are not controlled with the medication. If using nasal spray, instructions as follows: Nasal spray- use twice daily, one spray per nostril twice daily, after 30 minutes, rinse out nose with saline spray.. Use opposite hand per nostril to spray in the nasal steroid allergy spray. Kenalog injection today in the office. . Back pain - recomm ended heat, tiger balm to upper back, stretching exercises, and hand out given to pt. Recommended weight loss, and better breast support to help decrease strain on upper shoulder/upper back muscles. Bipolar Mood disorder -pt relatively stable, continue with current regimen - needs labs before next appt, need to check depakote level. Anxiety - relatively stable. Scab - pt to use neosporin over the lesion, call if not healing. . Hypertension - wel l controlled - continue with current medications, continue with no added salt diet. Pt has been encouraged to exercise daily. The pt has been advised to call the office if there are any acute concerns about change in blood pressure readings at home. . Hypertension - wel l controlled - continue with current medications, continue with no added salt diet. Pt has been encouraged to exercise daily. The pt has been advised to call the office if there are any acute concerns about change in blood pressure readings at home. Bipolar Mood disorder -symptoms improved with current medications-no changes- follow up in 1 month, sooner if needed Fasting labs. Hypert ension - well controlled - continue with current medications, continue with no added salt diet. Pt has been encouraged to exercise daily. The pt has been advised to call the office if there are any acute concerns about change in blood pressure readings at home. Bipolar depression-symptoms stable-seeing Dr Valencia for outpatient treatment . UTI - pt with posi tive urinalysis - culture sent if appropriate. Antibiotic electronically prescribed to pt's pharmacy of choice. Pt to call if symptoms do not improve. . Hypothyroidism - p t with chronic hypothyroidism, continue with current medication, will monitor pt to signs or symptoms of lack of adequate supplementation. Pt is to continue with current dose of medication unless directed otherwise.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 Frequency of Episodes decreasing 08/27/2013 None ankle pain Limitation on Activities allows weight bearing activity 08/27/2013 None ankle pain Severity mild 08/27/2013 None ankle pain Significant Medical Conditions prior injury 08/27/2013 None ankle pain Significant Medications NSAID's 08/27/2013 None ankle pain Mechanism of injury rotational 08/27/2013 None ankle pain Sports Participation not significant 08/27/2013 None ankle pain 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 None ankle pain Exacerbating Factors weight bearing 08/27/2013 None ankle pain Exacerbating Factors work 08/27/2013 None ankle pain Initial treatment NSAIDs 08/27/2013 None ankle pain Initial treatment elevation 08/27/2013 None Hospital Follow Up _ Oth er: from [facility] 08/20/2013 started on remeron and zyprexa changed to protonix and lexapro increased to 20mg weight gain/obesity Quality acute 08/20/2013 states has gained since m eds were changed edema Onset and Resolution sudden in onset 08/20/2013 states took lasix 3 days in a row without much improvment edema Quality painless 08/20/2013 None weight gain/obesity Onset and Resolution ongoing 08/20/2013 None weight gain/obesity Location globally 08/20/2013 None weight gain/obesity Diet is changed - she notes that she is taking in more ice cream lately. 08/20/2013 None weight gain/obesity Pertinent Findings Denies depressed mood 08/20/2013 None Hospital Follow Up Quality chronic illness 08/20/2013 Bipolar Mood Disorder - p t states that since her stay in [facility] - she is much better, her family has noticed that she is much better as well. Hospital Follow Up Severity mild 08/20/2013 None depression Quality acute 07/10/2013 - on chronic depression - depression Onset and Resolution ongoing 07/10/2013 None depression Onset of Symptom during adulthood 07/10/2013 None depression Limitation on Activities moderately limits activities 07/10/2013 - has been incapacitating over the past 2 - 3 weeks - depression Pertinent Findings anxiety 07/10/2013 None depression Pertinent Findings depressed mood 07/10/2013 None depression Pertinent Findings Denies guilt 07/10/2013 None depression Pertinent Findings Denies agitation 07/10/2013 None depression Alleviating Factors medication 07/10/2013 None depression Triggers no k nown associated factors 07/10/2013 None cough Location in the [place] 03/20/2013 None cough Quality acute 03/20/2013 None cough Onset of Symptom 4 -5 days ago 03/20/2013 None cough Pertinent Findings Denies chills 03/20/2013 None cough Pertinent Findings Denies fever 03/20/2013 None cough Pertinent Findings hoarseness 03/20/2013 None cough Pertinent Findings nasal congestion 03/20/2013 drainage down throat cough Limitation on Activities does not limit activities 03/20/2013 None cough Frequency of Episodes increasing 03/20/2013 None cough Triggers known all ergens 03/20/2013 None cough Pertinent Findings Denies facial pain 03/20/2013 None diabetes mellitus Quality non-insulin dependent 03/20/2013 None diabetes mellitus Test results Pt not checking blood glucose readings at home 03/20/2013 None diabetes mellitus Exacerbating Factors diet 03/20/2013 None diabetes mellitus Nutrition regular diet 03/20/2013 None diabetes mellitus Exercise no exercise 03/20/2013 [address]roid 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 [place] 03/07/2013 None hypothyroid Severity mil d with subclinical signs 03/07/2013 None hypothyroid Triggers no known associated factors 03/07/2013 None hypothyroid Alleviating Factors medication 03/07/2013 None hypothyroid Pertinent Findings Denies coarse hair 03/07/2013 None hypothyroid Pertinent Findings Denies coarse skin 03/07/2013 None hypothyroid Pertinent Findings Denies cold intolerance 03/07/2013 None hypothyroid Pertinent Findings Denies decreased energy 03/07/2013 None hypothyroid Pertinent Findings Denies edema 03/07/2013 None hypothyroid 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 [place] 01/22/2013 None hypothyroid Severity mil d with subclinical signs 01/22/2013 None hypothyroid Triggers no known associated factors 01/22/2013 None hypothyroid Alleviating Factors medication 01/22/2013 None hypothyroid Pertinent Findings Denies coarse hair 01/22/2013 None hypothyroid Pertinent Findings Denies coarse skin 01/22/2013 None hypothyroid Pertinent Findings Denies cold intolerance 01/22/2013 None hypothyroid Pertinent Findings Denies decreased energy 01/22/2013 None hypothyroid Pertinent Findings Denies edema 01/22/2013 None cough Location in the th roat 08/22/2012 None cough Onset and Resolution gradual in onset 08/22/2012 None cough Quality productive 08/22/2012 None cough Quality acute 08/22/2012 None cough Onset of Symptom 1 weeks ago 08/22/2012 None cough Pertinent Findings chest discomfort 08/22/2012 when coughing cough Pertinent Findings Denies chills 08/22/2012 None cough Pertinent Findings Denies dyspnea 08/22/2012 None cough Pertinent Findings Denies hoarseness 08/22/2012 None cough Pertinent Findings Denies ill contacts 08/22/2012 None cough Pertinent Findings Denies lethargy 08/22/2012 None cough Pertinent Findings Denies muscle aches 08/22/2012 None cough Pertinent Findings nasal congestion 08/22/2012 None cough Pertinent Findings Denies nausea 08/22/2012 None cough Pertinent Findings sputum production 08/22/2012 None cough Pertinent Findings Denies vomiting 08/22/2012 None cough Pertinent Findings Denies tachypnea 08/22/2012 None cough Alleviating Factors OTC medications 08/22/2012 cough drops cough Limitation on Activities does not limit activities 08/22/2012 None cough Frequency of Episodes increasing 08/22/2012 None cough Triggers post nasa l drip 08/22/2012 None cough Triggers known all ergens 08/22/2012 None hypothyroid 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 [place] 08/14/2012 None hypothyroid Severity mil d with subclinical signs 08/14/2012 None hypothyroid Triggers no known associated factors 08/14/2012 None hypothyroid Alleviating Factors medication 08/14/2012 None hypothyroid Pertinent Findings Denies coarse hair 08/14/2012 None hypothyroid Pertinent Findings Denies coarse skin 08/14/2012 None hypothyroid Pertinent Findings Denies cold intolerance 08/14/2012 None hypothyroid Pertinent Findings Denies decreased energy 08/14/2012 None hypothyroid Pertinent Findings Denies edema 08/14/2012 None hypertension Quality chr onic 08/14/2012 None hypertension Onset and Resolution ongoing 08/14/2012 None cough Onset of Symptom 2 weeks ago 05/22/2012 None cough Location in the th roat 05/22/2012 None sinus congestion Pertinent Findings Denies swollen glands 05/22/2012 None sinus congestion Pertinent Findings Denies vomiting 05/22/2012 None sinus congestion Location on both sides 05/22/2012 None cough Quality acute 05/22/2012 None cough Onset and Resolution ongoing 05/22/2012 None cough Limitation on Activities does not limit activities 05/22/2012 None cough Frequency of Episodes unchanged 05/22/2012 None cough Triggers no known associated factors 05/22/2012 None cough Alleviating Factors OTC medications 05/22/2012 cough drops cough Pertinent Findings Denies chills 05/22/2012 None cough Pertinent Findings Denies dyspnea 05/22/2012 None cough Pertinent Findings Denies ill contacts 05/22/2012 None cough Pertinent Findings Denies nausea 05/22/2012 None cough Pertinent Findings nasal congestion 05/22/2012 None cough Pertinent Findings sputum production 05/22/2012 yellow sinus congestion Onset and Resolution ongoing 05/22/2012 None sinus congestion Onset of Symptom 2 weeks ago 05/22/2012 None sinus congestion Severity moderate 05/22/2012 None sinus congestion Significant Medical Conditions allergic rhinitis 05/22/2012 None sinus congestion Triggers no known associated factors 05/22/2012 None sinus congestion Pertinent Findings cough 05/22/2012 None sinus congestion Pertinent Findings decreased energy level 05/22/2012 None hypothyroid 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 [place] 04/17/2012 None hypothyroid Severity mil d with subclinical signs 04/17/2012 None hypothyroid Triggers no known associated factors 04/17/2012 None hypothyroid Alleviating Factors medication 04/17/2012 None hypothyroid Pertinent Findings Denies coarse hair 04/17/2012 None hypothyroid Pertinent Findings Denies coarse skin 04/17/2012 None hypothyroid Pertinent Findings Denies cold intolerance 04/17/2012 None hypothyroid Pertinent Findings Denies decreased energy 04/17/2012 None hypothyroid Pertinent Findings Denies edema 04/17/2012 None bone fracture Location n on-displaced 12/01/2011 rt arm, seen by dr shabazz undergoing physical therapy bone fracture Quality ch ronic 12/01/2011 None bone fracture Quality no n-displaced 12/01/2011 None bone fracture Quality im proving 12/01/2011 None bone fracture Onset of Symptom 3+ months ago 12/01/2011 None bone fracture Limitation on Activities moderately limits activities 12/01/2011 None bone fracture Triggers f all 12/01/2011 None bone fracture Pertinent Findings pain 12/01/2011 None bone fracture Pertinent Findings point tenderness 12/01/2011 None bone fracture Pertinent Findings stiffness 12/01/2011 None hypothyroid 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 [place] 08/11/2011 None hypothyroid Severity mil d with subclinical signs 08/11/2011 None hypothyroid Triggers no known associated factors 08/11/2011 None hypothyroid Alleviating Factors medication 08/11/2011 None hypothyroid Pertinent Findings Denies coarse hair 08/11/2011 None hypothyroid Pertinent Findings Denies coarse skin 08/11/2011 None hypothyroid Pertinent Findings Denies cold intolerance 08/11/2011 None hypothyroid Pertinent Findings Denies decreased energy 08/11/2011 None hypothyroid Pertinent Findings Denies edema 08/11/2011 None hyperlipidemia Onset and Resolution gradual in onset 08/11/2011 None hyperlipidemia Severity mild 08/11/2011 None hyperlipidemia Significant Medications statin 08/11/2011 None hyperlipidemia Alleviating Factors medication 08/11/2011 None hyperlipidemia Exacerbating Factors diet 08/11/2011 None hyperlipidemia Quality c hronic 08/11/2011 None hyperlipidemia Quality i mproving 08/11/2011 None hyperlipidemia Pertinent Findings Denies edema 08/11/2011 None hyperlipidemia Pertinent Findings Denies nausea 08/11/2011 None depression Onset and Resolution ongoing 06/01/2011 None breast complaint Location in the left lower outer quadrant 06/01/2011 improved breast complaint Location in the right lower outer quadrant 06/01/2011 improved breast complaint Quality acute 06/01/2011 Pt states that she does w ear underwire bras, has been wearing this specific style of bra for about a year. - she has bought new bras that are not underwire and the pain has improved. breast complaint Quality pain 06/01/2011 None depression Onset and Resolution sudden in onset 06/01/2011 she states that her depression has improved since restating the lexapro. depression Exacerbating Factors medication 06/01/2011 changes depression Quality chron ic 06/01/2011 None depression Triggers stre ss 06/01/2011 None breast complaint Location in the right lower outer quadrant 05/18/2011 None breast complaint Location in the left lower outer quadrant 05/18/2011 None breast complaint Onset of Symptom 3 weeks ago 05/18/2011 None breast complaint Quality acute 05/18/2011 Pt states that she does w ear underwire bras, has been wearing this specific style of bra for about a year. breast complaint Quality pain 05/18/2011 None depression Quality worse prerna 05/18/2011 None depression Onset and Resolution sudden in onset 05/18/2011 started after she stopped her lexapro - her psychiatrist weaned her off of her lexapro during april due to poor sex-drive on the lexapro depression Exacerbating Factors medication 05/18/2011 changes Additional Source Comments This clinical document has been generated using [employer] software that has been certified by the Office of the National Coordinator for Health Information Technology (ONC 15.99.04.3023.Diam.[id number]) and the National Committee for [employer] (NCQA, as an eMeasure certified technology). FOR RECORDS PERTAINING TO PATIENTS WHO ARE OR HAVE BEEN ENROLLED IN A CHEMICAL D EPENDENCY/SUBSTANCE ABUSE PROGRAM, SOME INFORMATION MAY BE OMITTED. This clinica l summary was aggregated from multiple sources. Caution should be exercised in using it in the provision of clinical care. This summary normalizes information from multiple sources, and as a consequence, information in this document may ma terially change the coding, format and clinical context of patient data. In wyatt tion, data may be omitted in some cases. CLINICAL DECISIONS SHOULD BE BASED ON T HE PRIMARY CLINICAL RECORDS. [employer] provides no warranty or guara ntee of the accuracy or completeness of information in this document.The followi ng information is based on time limited clinical information UNRECOGNIZED CONTENT PROVIDED BELOW FOR UNRECOGNIZED SECTION MEDICAL (GENERAL) HISTORY Type Description Date Surgical History appendectomy 1950 Surgical History 1960 Surgical History 1966 Surgical History Left knee replacement 1998 Surgical History blood transfusion 1998 Surgical History removal right side of thyroid gland 2007 Surgical History Right knee replacement 2010 Hospitalization History surgeries Hospitalization History psychiatric hospitalizations x4-5 Type Description Date Surgical History appendectomy 1950 Surgical History 1960 Surgical History 1966 Surgical History Left knee replacement 1998 Surgical History blood transfusion 1998 Surgical History removal right side of thyroid gland 2007 Surgical History Right knee replacement 2010 Hospitalization History surgeries Hospitalization History psychiatric hospitalizations x4-5 Hospitalization History hospitalized for two nights due to a fall 09/2016 Type Description Date Surgical History appendectomy 1950 Surgical History 1960 Surgical History 1966 Surgical History Left knee replacement 1998 Surgical History blood transfusion 1998 Surgical History removal right side of thyroid gland 2007 Surgical History Right knee replacement 2010 Hospitalization History surgeries Hospitalization History psychiatric hospitalizations x4-5 Hospitalization History hospitalized for two nights due to a fall 09/2016 [address] [facility] 03/21/17-
--- OUTSIDE RECORDS SUMMARY | 2019-11-07 17:14 | XMS REPORT | CCD ---
Author Author Cesar Littlejohn Organization Jodie Littlejohn MD, [facility] Address [facility] [place] [address] Phone Care Team Providers Care General Agent Name Role Phone PP Unavailable CCM Unavailable Summary Purpose Interface Exchange Insurance Providers Payer name Policy type / Coverage type Covered constitution party ID Effective Begin Date Effective End Date WPS Medicare Part B Medicare Part B [id number] 2013 Unknown [facility] Part B [id number] 2013 Un known Family history Grandfather Diagnosis Age At Onset No Family Disease Entered N/A Brother Diagnosis Age At Onset No Family Disease Entered N/A Son Diagnosis Age At Onset No Family Disease Entered N/A Father Diagnosis Age At Onset No Family Disease Entered N/A Grandfather Diagnosis Age At Onset No Family Disease Entered N/A Son Diagnosis Age At Onset No Family Disease Entered N/A Mother Diagnosis Age At Onset No Family Disease Entered N/A Social History Social History Element Codes Description Effective Dates Employment Unknown Jessica ntly employed retired from [employer], 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 Unknown Has never used illegal drugs 011 Allergies, Adverse Reactions, Alerts Substance Reaction Codes Entered Date Inactivated Date Status Chocolate hives Unknown 05/18/2011 No In active Date Active Past Medical History Illness Codes Condition Status Onset Date Resolved Date Dysuria ICD-9: 788.1 ICD-10: R30.0 Active 09/22/2015 Unknown Allergic rhinitis du e to pollen ICD-9: 477.0 ICD-10: J30.1 Active 01/25/2016 Unknown Unspecified fracture of left calcaneus, initial encounter for closed fracture ICD-9: 825.0 ICD-10: S92.002A Active 10/19/2016 Unknown Unsteadiness on feet ICD-9: 781.2 ICD-10: R26.81 Active 10/19/2016 Unknown Acute recurrent maxi llary sinusitis ICD-9: 461.0 ICD-10: J01.01 Active 08/09/2016 Unknown Cough ICD-9: 786.2 ICD-10: R05 Active 05/26/2016 Unknown Fever, unspecified ICD- 9: 780.60 ICD-10: R50.9 Active 08/09/2016 Unknown Allergic rhinitis du e to pollen ICD-9: 477.9 ICD-10: J30.1 Active 07/20/2016 Unknown Bipolar disorder, cu rrent episode depressed, moderate ICD-9: 296.52 ICD-10: F31.32 Active 05/26/2016 Unknown Essential (primary) hypertension ICD-9: 401.9 ICD-10: I10 Active 04/28/2016 Unknown Acute upper respirat ory infection, unspecified ICD-9: 465.9 ICD-10: J06.9 Active 05/26/2016 Unknown Bipolar disorder, cu rrent episode manic without psychotic features, moderate ICD-9: 296.40 ICD-10: F31.12 Active 04/28/2016 Unknown Encounter for immuni zation ICD-9: V04.81 ICD-10: Z23 Active 02/19/2016 Unknown Acute laryngopharyng itis ICD-9: 465.0 ICD-10: J06.0 Active 01/25/2016 Unknown Other seborrheic ker atosis ICD-9: 702.19 ICD-10: L82.1 Active 12/31/2015 Unknown Frequency of micturi tion ICD-9: 788.41 ICD-10: R35.0 Active 12/24/2015 Unknown Mixed hyperlipidemia ICD-9: 272.4 ICD-10: E78.2 Active 12/24/2015 Unknown Other obesity due to excess calories ICD-9: 278.00 ICD-10: E66.09 Active 12/24/2015 Unknown Gastro-esophageal re flux disease without esophagitis ICD-9: 530.81 ICD-10: K21.9 Active 12/07/2015 Unknown Generalized anxiety disorder ICD-9: 300.00 ICD-10: F41.1 Active 12/07/2015 Unknown Hypothyroidism, unsp ecified ICD-9: 244.9 ICD-10: E03.9 Active 09/22/2015 Unknown Major depressive dis order, single episode, unspecified ICD-9: 311 ICD-10: F32.9 Active 06/24/2015 Unknown 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 ICD-9: V58.69 ICD-10: Z79.899 Active 06/23/2015 Unknown Rash and other nonsp ecific skin eruption ICD-9: 782.1 ICD-10: R21 Active 04/27/2015 Unknown Muscle strain ICD-9: 848.9 Active 11/17/2014 Unknown Yeast infection invo lving the vagina and surrounding area ICD-9: 112.1 Active 11/17/2014 Unknown CELLULITIS OF ARM ICD-9: 682.3 Active 10/22/2014 Unknown Dog bite ICD-9: 879.8 Active 10/22/2014 Unknow n Encounter for screen ing fecal occult blood testing ICD-9: V76.51 Active 10/07/2014 Unknown PREVENTIVE PHYSICAL EXAM ICD-9: V70.0 Active 09/13 Unknown DIZZINESS AND GIDDINESS ICD-9: 780.4 Active 09/22/2014 Unknown Hypotension ICD-9: 458.9 Active 09/22/2014 Unknow n ACUTE URI ICD-9: 465.9 Active 07/08/2014 Unknow n COUGH ICD-9: 786.2 Active 07/08/2014 Unknow n EDEMA ICD-9: 782.3 Active 07/08/2014 Unknow n HYPOTHYROIDISM ICD-9: 244.9 Active 05/31/2014 Unknown Back pain ICD-9: 724.5 Active 03/05/2014 Unknow n BIPOLAR AFFECTIVE, M ANIC, UNSPEC ICD-9: 296.40 Active Unknown Scab ICD-9: 782.8 Active 03/05/2014 Unknow n ESSENTIAL HYPERTENSION ICD-9: 401.9 Active 01/29/2014 Unknown VAC STREP PNEUMONIAE -FLU ICD-9: V06.6 ICD-10: Z23 Active 01/29/2014 Unknown DYSURIA ICD-9: 788.1 Active 11/12/2013 Unknow n Rash ICD-9: 782.1 Active 10/11/2013 Unknow n Left ankle pain ICD-9: 719.47 Active 08/27/2013 Unknown 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 Active 03/20/2013 Unknown IMPAIRED FASTING GLU COSE ICD-9: 790.21 Active 09/2012 Unknown Allergic rhinitis ICD-9: 477.9 Active 05/22/2012 Unknown VACCIN FOR INFLUENZA ICD-9: V04.81 Active 02/23/2012 Unknown Vitamin D deficiency ICD-9: 268.9 Active 12/01/2011 Unknown Osteoarthrosis, 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 Active 08/11/2011 Unknown ABRASION HAND ICD-9: 914.0 Active 06/01/2011 Unknown Flatulence ICD-9: 787.3 Active 06/01/2011 Unknow n Hyperlipidemia Unknown Active 05/18/2011 Unknow n Hypothryroidism Unknown Active 05/18/2011 Unknow n Breast pain in female ICD-9: 611.71 Active 05/18/2011 Unknown DEPRESSIVE DISORDER NEC ICD-9: 311 Active 05/18/2011 Unknown HYPERLIPIDEMIA ICD-9: 272.4 Active 05/18/2011 Unknown Anxiety Unknown Active 04/06/2011 Unknow n Depression Unknown Active 04/06/2011 Unknow n Gastroesophageal ref lux disease Unknown Active 1 Unknown Hypertension Unknown Active 04/06/2011 Unknow n Problems Condition Codes Effectiv e Dates Condition Status Dysuria ICD-9: 788.1 ICD-10: R30.0 09/22/2015 Active Allergic rhinitis du e to pollen ICD-9: 477.0 ICD-10: J30.1 01/25/2016 Active Unspecified fracture of left calcaneus, initial encounter for closed fracture ICD-9: 825.0 ICD-10: S92.002A 10/19/2016 Active Unsteadiness on feet ICD-9: 781.2 ICD-10: R26.81 10/19/2016 Active Acute recurrent maxi llary sinusitis ICD-9: 461.0 ICD-10: J01.01 08/09/2016 Active Cough ICD-9: 786.2 ICD-10: R05 05/26/2016 Active Fever, unspecified ICD- 9: 780.60 ICD-10: R50.9 08/09/2016 Active Allergic rhinitis du e to pollen ICD-9: 477.9 ICD-10: J30.1 07/20/2016 Active Bipolar disorder, cu rrent episode depressed, moderate ICD-9: 296.52 ICD-10: F31.32 05/26/2016 Active Essential (primary) hypertension ICD-9: 401.9 ICD-10: I10 04/28/2016 Active Acute upper respirat ory infection, unspecified ICD-9: 465.9 ICD-10: J06.9 05/26/2016 Active Bipolar disorder, cu rrent episode manic without psychotic features, moderate ICD-9: 296.40 ICD-10: F31.12 04/28/2016 Active Encounter for immuni zation ICD-9: V04.81 ICD-10: Z23 02/19/2016 Active Acute laryngopharyng itis ICD-9: 465.0 ICD-10: J06.0 01/25/2016 Active Other seborrheic ker atosis ICD-9: 702.19 ICD-10: L82.1 12/31/2015 Active Frequency of micturi tion ICD-9: 788.41 ICD-10: R35.0 12/24/2015 Active Mixed hyperlipidemia ICD-9: 272.4 ICD-10: E78.2 12/24/2015 Active Other obesity due to excess calories ICD-9: 278.00 ICD-10: E66.09 12/24/2015 Active Gastro-esophageal re flux disease without esophagitis ICD-9: 530.81 ICD-10: K21.9 12/07/2015 Active Generalized anxiety disorder ICD-9: 300.00 ICD-10: F41.1 12/07/2015 Active Hypothyroidism, unsp ecified ICD-9: 244.9 ICD-10: E03.9 09/22/2015 Active Major depressive dis order, single episode, unspecified ICD-9: 311 ICD-10: F32.9 06/24/2015 Active 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 ICD-9: V58.69 ICD-10: Z79.899 06/23/2015 Active Rash and other nonsp ecific skin eruption ICD-9: 782.1 ICD-10: R21 04/27/2015 Active Muscle strain ICD-9: 848.9 11/17/2014 Active Yeast infection invo lving the vagina and surrounding area ICD-9: 112.1 11/17/2014 Active CELLULITIS OF ARM ICD-9: 682.3 10/22/2014 Active Dog bite ICD-9: 879.8 10/22/2014 Active Encounter for screen ing fecal occult blood testing ICD-9: V76.51 10/07/2014 Active PREVENTIVE PHYSICAL EXAM ICD-9: V70.0 10/01/2014 Active DIZZINESS AND GIDDINESS ICD-9: 780.4 09/22/2014 Active Hypotension ICD-9: 458.9 09/22/2014 Active ACUTE URI ICD-9: 465.9 07/08/2014 Active COUGH ICD-9: 786.2 07/08/2014 Active EDEMA ICD-9: 782.3 07/08/2014 Active HYPOTHYROIDISM ICD-9: 244.9 05/31/2014 Active Back pain ICD-9: 724.5 03/05/2014 Active BIPOLAR AFFECTIVE, M ANIC, UNSPEC ICD-9: 296.40 03/05/2014 Active Scab ICD-9: 782.8 03/05/2014 Active ESSENTIAL HYPERTENSION ICD-9: 401.9 01/29/2014 Active VAC STREP PNEUMONIAE -FLU ICD-9: V06.6 ICD-10: Z23 01/29/2014 Active DYSURIA ICD-9: 788.1 11/12/2013 Active Rash ICD-9: 782.1 10/11/2013 Active Left ankle pain ICD-9: 719.47 08/27/2013 Active 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 03/20/2013 Active IMPAIRED FASTING GLU COSE ICD-9: 790.21 03/20/2013 Active Allergic rhinitis ICD-9: 477.9 05/22/2012 Active VACCIN FOR INFLUENZA ICD-9: V04.81 02/23/2012 Active Vitamin D deficiency ICD-9: 268.9 12/01/2011 Active Osteoarthrosis, 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 08/11/2011 Active ABRASION HAND ICD-9: 914.0 06/01/2011 Active Flatulence ICD-9: 787.3 06/01/2011 Active Hyperlipidemia Unknown 05/18/2011 Active Hypothryroidism Unknown 05/18/2011 Active Breast pain in female ICD-9: 611.71 05/18/2011 Active DEPRESSIVE DISORDER NEC ICD-9: 311 05/18/2011 Active HYPERLIPIDEMIA ICD-9: 272.4 05/18/2011 Active Anxiety Unknown 04/06/2011 Active Depression Unknown 04/06/2011 Active Gastroesophageal ref lux disease Unknown 04/06/2011 Activ e Hypertension Unknown 04/06/2011 Active Medications Medication Codes Instruc tions Start Date Stop Date Sta tus Fill Instructions Augmentin 875 mg-125 mg tablet RxNorm: 110151 1 Tablet(s) PO BID 11/15/2016 11/21/2016 Active Augmentin 875 mg-125 mg tablet RxNorm: 871317 1 Tablet(s) PO BID 11/15/2016 11/14/2016 Inactive Keflex 500 mg capsule RxNorm: 963109 1 Capsule(s) PO TID 11/10/2016 11/14/2016 Inactive nystatin 100,000 uni t/mL oral suspension RxNorm: 368902 5 Milliliter(s) PO sw neli and swallow QID 08/17/2016 08/16/2016 Inactive nystatin 100,000 uni t/mL oral suspension RxNorm: 376801 5 Milliliter(s) PO sw neli and swallow QID 08/17/2016 08/26/2016 Inactive Augmentin 875 mg-125 mg tablet RxNorm: 526200 1 Tablet(s) PO BID 08/09/2016 08/15/2016 Inactive Seroquel 100 mg tablet RxNorm: 127965 1/2 Tablet(s) PO QHS 07/20/2016 No Stop Date Active Depakote 125 mg tabl et,delayed release RxNorm: 3801415 2 Capsule(s) PO QAM 1 cap in the evening with meal 07/20/2016 10/17/2016 Inactive levothyroxine 88 mcg tablet RxNorm: 904160 TAKE ONE TABLET BY [facility] DAILY 06/01/2016 04/26/2017 Ac tive Synthroid 88 mcg tablet RxNorm: 326521 1 Tablet(s) PO daily 05/31/2016 09/27/2016 Inactive Fill generic if insurance will not cover Synthroid 88 mcg tablet RxNorm: 164346 1 Tablet(s) PO daily 05/31/2016 05/30/2016 Inactive Fill generic if insurance will not cover Flonase Allergy Reli ef 50 mcg/actuation nasal spray,suspension RxNorm: 3858993 2 [place] NASAL daily 05/27/2016 06/09/2016 Inactive Zithromax Z-Juancarlos 250 mg tablet RxNorm: 480398 1 Tablet(s) PO UD 05/27/2016 05/31/2016 Inactive zpack omeprazole 20 mg cap jacquelin,delayed release RxNorm: 993280 TAKE ONE CAPSULE BY M OUTH EVERY DAY 04/12/2016 01/06/2017 Active Effexor XR 75 mg cap jacquelin,extended release RxNorm: 495908 1 Capsule(s) PO daily TAKE ONE CAPSULE BY MOUTH DAILY 03/18/2016 12/12/2016 Active Effexor XR 37.5 mg c apsule,extended release RxNorm: 862506 TAKE ONE CAPSULE BY M OUTH DAILY 02/23/2016 03/17/2016 Inactive promethazine 6.25 mg -codeine 10 mg/5 mL syrup RxNorm: 386007 5-10 Milliliter(s) PO Q6 PRN 01/26/2016 No Stop Date Active Kenalog 40 mg/mL ericka pension for injection RxNorm: 4045287 Milliliter(s) Inj 01/26/2016 01/26/2016 In active Zithromax Z-Juancarlos 250 mg tablet RxNorm: 148671 1 Tablet(s) PO daily 01/26/2016 01/30/2016 Inactive zpack Effexor XR 37.5 mg c apsule,extended release RxNorm: 147479 1 Capsule(s) PO daily 11/21/2015 11/20/2015 In active Effexor XR 37.5 mg c apsule,extended release RxNorm: 665582 1 Capsule(s) PO daily 11/21/2015 02/18/2016 In active Latuda 20 mg tablet RxNorm: 1242217 1 Tablet(s) PO daily 09/23/2015 04/01/2016 Inactive Pristiq 25 mg tablet ,extended release RxNorm: 2399341 1 Tablet(s) PO QAM 09/23/2015 11/20/2015 In active Cipro 500 mg tablet RxNorm: 299448 1 Tablet(s) PO BID 07/23/2015 07/29/2015 Inactive probiotic bid x7 days Levaquin 500 mg tablet RxNorm: 128506 1 Tablet(s) PO daily 07/07/2015 07/06/2015 Inactive Levaquin 500 mg tablet RxNorm: 333378 1 Tablet(s) PO daily 07/07/2015 07/13/2015 Inactive Depakote 125 mg tabl et,delayed release RxNorm: 7807688 2 Tablet(s) PO QPM 05/14/2015 08/11/2015 In active levothyroxine 88 mcg tablet RxNorm: 584438 1 Tablet(s) PO daily 05/05/2015 05/30/2016 Inactive hydroxyzine HCl 25 m g tablet RxNorm: 489536 1 Tablet(s) PO TID PRN 04/28/2015 No Stop Date Active PRN ITCHING escitalopram 20 mg t ablet RxNorm: 931120 1 Tablet(s) PO daily 03/18/2015 03/18/2015 Inactive [SAVINGS FOR UNINSURED PATIENTS -- BIN:0 [id number], PCN: ASPROD1, Group: [facility], ID# [id number], Process claim through Pegg[employer], for questions: . THIS IS NOT INSURANCE.] omeprazole 20 mg cap jacquelin,delayed release RxNorm: 562070 TAKE ONE CAPSULE BY M OUTH EVERY DAY 03/11/2015 01/04/2016 Inactive Diflucan 150 mg tablet RxNorm: 748307 1 Tablet(s) PO daily 11/18/2014 11/27/2014 Inactive Biofreeze (menthol) 4 % topical gel RxNorm: 9497902 1 Application TOP BI D 11/18/2014 11/27/2014 In active tetanus and diphther ia tox (PF) 5 Lf unit-2 Lf unit/0.5 mL IM susp RxNorm: 004910 1 injection IM 10/23/2014 10/23/2014 Inactive Augmentin 875 mg-125 mg tablet RxNorm: 499260 1 Tablet(s) PO BID 10/23/2014 11/01/2014 Inactive Kenalog 40 mg/mL ericka pension for injection RxNorm: 6760786 Milliliter(s) Inj 07/08/2014 07/08/2014 In active Zithromax Z-Juancarlos 250 mg tablet RxNorm: 912247 1 Tablet(s) PO daily 07/08/2014 07/12/2014 Inactive zpack escitalopram 20 mg t ablet RxNorm: 130970 1 Tablet(s) PO daily 07/01/2014 01/26/2015 Inactive [SAVINGS FOR UNINSURED PATIENTS -- BIN:0 65881, PCN: ASPROD1, Group: [id number], ID# [id number], Process claim through MedImpact, for questions: . THIS IS NOT INSURANCE.] escitalopram 20 mg t ablet RxNorm: 821212 TAKE ONE TABLET BY [facility] ONCE A DAY 07/01/2014 12/27/2014 In active Cipro 500 mg tablet RxNorm: 069253 1 Tablet(s) PO BID 06/07/2014 06/13/2014 Inactive probiotic bid x7 days [SAVINGS FOR UNINSURED PATIENTS -- BIN:[id number], PCN: ASPROD1, Group: [id number], ID# [id number], Process claim through [employer], for questions: . THIS IS NOT INSURANCE.] Cipro 500 mg tablet RxNorm: 392503 1 Tablet(s) PO BID 06/07/2014 06/06/2014 Inactive probiotic bid x7 days Diflucan 150 mg tablet RxNorm: 624565 1 Tablet(s) PO daily 05/31/2014 05/30/2014 Inactive Diflucan 150 mg tablet RxNorm: 306572 1 Tablet(s) PO daily 05/31/2014 06/04/2014 Inactive [SAVINGS FOR UNINSURED PATIENTS -- BIN:0 92391, PCN: ASPROD1, Group: [id number], ID# [id number], Process claim through [employer], for questions: . THIS IS NOT INSURANCE.] Synthroid 75 mcg tablet RxNorm: 466048 Tablet(s) PO TAKE ONE TABLET BY MOUTH 04/25/2014 05/30/2014 Inactive PLEASE DO NOT SUBSTITUTE levothyroxine 88 mcg tablet RxNorm: 529665 1 Tablet(s) PO daily TAKE ONE TABLET BY MOUTH EVERY DAY 04/24/2014 04/24/2014 Inactive ketorolac 60 mg/2 mL intramuscular solution RxNorm: 702130 Milliliter(s) IM 04/18/2014 04/18/2014 In active nystatin-triamcinolo ne 100,000 unit/g-0.1 % topical cream RxNorm: 8667917 APPLY TOPICALLY TWICE A DAY 04/14/2014 05/11/2014 Inactive nystatin-triamcinolo ne 100,000 unit/g-0.1 % topical cream RxNorm: 4531030 APPLY TOPICALLY TWICE A DAY 04/14/2014 05/11/2014 Inactive Vitamin D3 5,000 uni t tablet RxNorm: 904054 ONE BY MOUTH EVERY DAY 04/08/2014 04/02/2015 Inactive lorazepam 0.5 mg tablet RxNorm: 989543 1 Tablet(s) PO QHS 03/05/2014 No Stop Date Active one q 8 hr prn, may take an extra dose at bedtime if nec omeprazole 20 mg cap jacquelin,delayed release RxNorm: 516503 TAKE ONE CAPSULE BY M OUTH EVERY DAY 03/04/2014 01/27/2015 Inactive spironolactone 25 mg tablet RxNorm: 866481 1 Tablet(s) PO TIW 10/23/2013 2016 Inactive Zyprexa 5 mg tablet RxNorm: 432648 1/2 Tablet(s) PO QHS 10/23/2013 03/04/2014 Inactive escitalopram 20 mg t ablet RxNorm: 591463 1 Tablet(s) PO daily 10/23/2013 05/20/2014 Inactive Depakote 125 mg tabl et,delayed release RxNorm: 6358397 2 Tablet(s) PO QPM 10/23/2013 04/20/2014 In active Diflucan 150 mg tablet RxNorm: 405383 1 Tablet(s) PO daily 10/11/2013 10/17/2013 Inactive nystatin-triamcinolo ne 100,000 unit/g-0.1 % topical cream RxNorm: 8568424 1 Application TOP BID 10/11/2013 10/24/2013 Inactive spironolactone 25 mg tablet RxNorm: 819629 1 Tablet(s) PO daily 09/17/2013 10/22/2013 Inactive Depakote 125 mg tabl et,delayed release RxNorm: 2926710 2 Tablet(s) PO TID 08/20/2013 10/22/[address] valencia increased escitalopram 20 mg t ablet RxNorm: 502616 1 Tablet(s) PO daily 07/10/2013 10/22/2013 Inactive Synthroid 75 mcg tablet RxNorm: 623645 Tablet(s) PO TAKE ONE TABLET BY MOUTH 04/17/2013 04/23/2014 Inactive Vitamin D3 5,000 uni t tablet RxNorm: 500407 1 Tablet(s) PO daily 03/28/2013 04/07/2014 Inactive Kenalog 40 mg/mL ericka pension for injection RxNorm: 0051516 Milliliter(s) Inj 03/20/2013 03/20/2013 In active omeprazole 20 mg cap jacquelin,delayed release RxNorm: 323722 Capsule(s) PO TAKE ON E CAPSULE BY MOUTH EVERY DAY 01/30/2013 08/19/2013 Inactive lorazepam 0.5 mg tablet RxNorm: 091755 1 Tablet(s) PO BID 01/22/2013 03/04/2014 Inactive one q 8 hr prn, may take an extra dose at bedtime if nec risperidone 0.5 mg t ablet RxNorm: 020909 1 Tablet(s) PO QHS 01/22/2013 08/19/2013 Inactive Silvadene 1 % Topica l Cream RxNorm: 598351 Cream TOP APPLY ON SK IN NEEDED 10/27/2012 01/21/2013 In active Cipro 500 mg tablet RxNorm: 397327 1 Tablet(s) PO BID 09/04/2012 09/03/2012 Inactive Cipro 500 mg tablet RxNorm: 644582 1 Tablet(s) PO BID 09/04/2012 09/10/2012 Inactive Rocephin 500 mg Solu tion for Injection RxNorm: 358517 1 Inj 08/22/2012 08/22/2012 Inactive Kenalog 40 mg/mL Ericka p for Injection RxNorm: 3535229 1 Milliliter(s) Inj 08/22/2012 08/22/2012 In active Rocephin 500 mg Solu tion for Injection RxNorm: 558886 1.5 Milliliter(s) Inj 05/22/2012 01/22/2013 In active Kenalog 40 mg/mL Ericka p for Injection RxNorm: 0463023 1 Milliliter(s) Inj 05/22/2012 05/22/2012 In active Synthroid 75 mcg tablet RxNorm: 315914 Tablet(s) PO 04/10/2012 04/16/2013 Inactive TAKE ONE TABLET BY MOUTH EVERY DAY name brand only Synthroid 75 mcg tablet RxNorm: 552527 Tablet(s) PO 04/09/2012 04/09/2012 Inactive TAKE ONE TABLET BY MOUTH EVERY DAY Vitamin D3 5,000 uni t tablet RxNorm: 842022 1 Tablet(s) PO daily 02/14/2012 03/09/2013 Inactive Vitamin D3 5,000 uni t tablet RxNorm: 279539 1 Tablet(s) PO daily 02/14/2012 02/13/2012 Inactive omeprazole 20 mg cap jacquelin,delayed release RxNorm: 668792 1 Capsule(s) PO daily 01/24/2012 01/29/2013 In active Vitamin D2 50,000 un it capsule RxNorm: 341925 1 Capsule(s) PO QW on e weekly x 3 months 12/07/2011 02/13/2012 Inactive one weekly x 3 months then 5000 units da natalie thereafter Synthroid 75 mcg tablet RxNorm: 550434 1 Tablet(s) PO daily 09/28/2011 03/25/2012 Inactive TAKE ONE TABLET BY MOUTH EVERY DAY ON AN EMPTY STOMACH omeprazole 20 mg cap jacquelin,delayed release RxNorm: 954915 1 Capsule(s) PO daily 07/20/2011 01/15/2012 In active Synthroid 75 mcg Tab RxNorm: 220506 Tablet(s) PO 2011 09/27/2011 Inactive TAKE ONE TABLET BY MOUTH EVERY DAY ON AN EMPTY STOMACH lorazepam 0.5 mg tablet RxNorm: 130052 1 Tablet(s) PO QDAY PRN 07/13/2011 01/21/2013 Inactive one q 8 hr prn, may take an extra dose a t bedtime if nec Synthroid 75 mcg Tab RxNorm: 025354 1 Tablet(s) PO daily 06/21/2011 07/18/2011 Inactive Silvadene 1 % Topica l Cream RxNorm: 552596 1 Application TOP PRN 06/01/2011 10/26/2012 Inactive dispense a small tube Depakote 125 mg tabl et,delayed release RxNorm: 4133778 3 Tablet(s) PO daily 06/01/2011 08/19/2013 In active lorazepam 0.5 mg Tab RxNorm: 855164 1 Tablet(s) PO PRN 06/01/2011 07/12/2011 Inactive one q 8 hr prn, may take an extra dose at bedtime if nec lorazepam 0.5 mg Tab RxNorm: 013783 Tablet(s) PO 04/20/2011 05/31/2011 Inactive one q 8 hr prn, may take an extra dose at bedtime if nec Influenza Virus Vacc ine 0.5 mL RxNorm: IM No Start Nathan e Active aspirin 81 mg Cap, D elayed Release RxNorm: 399248 1 Capsule(s) PO daily No Start Date Active omeprazole 20 mg cap jacquelin,delayed release RxNorm: 416336 1 Capsule(s) PO QHS No Start Date Active Lipitor 40 mg Tab RxNorm: 856781 1 Tablet(s) PO daily No Start Date Active Lumigan 0.01 % Eye D rops RxNorm: 5497022 Drop(s) OPH No Start Date Active Remeron 15 mg tablet RxNorm: 136734 1 Tablet(s) PO QHS No Start Date Active Lexapro 10 mg Tab RxNorm: 700122 1/2 Tablet(s) PO daily No Start Date 05/31/2011 Inactive pantoprazole 40 mg t ablet,delayed release RxNorm: 635244 1 Tablet(s) PO daily No Start Date 05/30/2014 Inactive Seroquel 100 mg tablet RxNorm: 724624 1 Tablet(s) PO QHS No Start Date 2016 Inactive Latuda 40 mg tablet RxNorm: 6570511 1 Tablet(s) PO daily No Start Date 09/22/2015 Inactive trifluoperazine 5 mg Tab RxNorm: 765896 1 Tablet(s) PO daily No Start Date 05/17/2011 Inactive Zithromax Z-Juancarlos 250 mg tablet RxNorm: 990564 Tablet(s) PO UD No Start Date 01/21/2013 Inactive trifluoperazine 5 mg Tab RxNorm: 700524 1 Tablet(s) PO QHS [place] No Start Date 08/13/2012 Inactive timolol 0.5 % Eye Drops RxNorm: 325978 1 Drop(s) OPH daily No Start Date 05/31/2011 Inactive each eye Lasix 20 mg Tab RxNorm: 524528 1/2 Tablet(s) PO QDAY PRN No Start Date 05/31/2011 Inactive lorazepam 0.5 mg Tab RxNorm: 560980 Tablet(s) PO No Start Date 04/19/2011 Inactive one q 8 hr prn, may take an extra dose at bedtime if nec Lexapro 5 mg tablet RxNorm: 926053 1 Tablet(s) PO daily No Start Date 07/09/2013 Inactive risperidone 0.5 mg t ablet RxNorm: 740951 1 Tablet(s) PO QHS No Start Date 01/21/2013 Inactive Lexapro 10 mg Tab RxNorm: 082100 1 Tablet(s) PO daily No Start Date 05/17/2011 Inactive Pristiq 50 mg tablet ,extended release RxNorm: 042572 1/2 Tablet(s) PO QAM No Start Date 09/22/2015 Inactive Ditropan XL 5 mg 24 hr Tab RxNorm: 441527 1 Tablet(s) PO daily No Start Date 01/28/2014 Inactive Vesicare 5 mg tablet RxNorm: 012924 1 Tablet(s) PO daily No Start Date 01/28/2014 Inactive oxcarbazepine 150 mg Tab RxNorm: 894683 1 Tablet(s) PO QHS No Start Date 08/10/2011 Inactive levothyroxine 88 mcg tablet RxNorm: 449398 oral No S tart Date 05/04/2015 Inactive Depakote 125 mg Tab RxNorm: 3721130 1 Tablet(s) PO daily No Start Date 05/31/2011 Inactive Zyprexa 5 mg tablet RxNorm: 386976 1 q am 2 at hs Tablet(s) PO No Start Date 10/22/2013 Inactive Calcium 500 + D (D3) 500 mg-125 unit Tab RxNorm: 131780 1 Tablet(s) PO BID No Start Date 05/31/2011 Inactive KCL 10 meq RxNorm: 1 PO daily No Start Date 05/31/2011 Inactive Stelazine 1 mg tablet RxNorm: 244095 1 Tablet(s) PO QAM No Start Date 02/12/2015 Inactive Mary 180 mg Tab RxNorm: 370536 1 Tablet(s) PO daily No Start Date 05/31/2011 Inactive Centrum Silver Ultra Women's Tab RxNorm: 1 Tablet(s) PO BID No Start Date 01/21/2013 Inactive Vagifem 10 mcg Vagin al Tab RxNorm: 842241 Tablet(s) VAG No Start Date 01/21/2013 Inactive 2-3x per week per dr kumar omeprazole 20 mg Cap , Delayed Release RxNorm: 485169 1 Capsule(s) PO daily No Start Date 2011 Inactive Vitamin D2 50,000 un it capsule RxNorm: 404679 1 Capsule(s) PO QW on e weekly x 3 months No Start Date 12/06/2011 Inactive one weekly x 3 months levothyroxine 75 mcg Cap RxNorm: 079876 1 Capsule(s) PO daily No Start Date 01/21/2013 Inactive Medication Administered Medication Codes Instruc tions Start Date Status Kenalog 40 mg/mL suspension for injection RxNorm: 0679734 Milliliter 01/26/2016 No longer Active tetanus and diphtheria tox (PF) 5 Lf uni t-2 Lf unit/0.5 mL IM susp RxNorm: 839871 1injection 10/23/2014 No longer Active Kenalog 40 mg/mL suspension for injection RxNorm: 3390504 Milliliter 07/08/2014 No longer Active ketorolac 60 mg/2 mL intramuscular solution RxNorm: 662905 Milliliter 04/18/2014 No longer Active Kenalog 40 mg/mL suspension for injection RxNorm: 0457662 Milliliter 03/20/2013 No longer Active Rocephin 500 mg Solution for Injection RxNorm: 744881 1 08/22/2012 No longer A ctive Kenalog 40 mg/mL Susp for Injection RxNorm: 0870335 1Milliliter 08/22/2012 N o longer Active Kenalog 40 mg/mL Susp for Injection RxNorm: 8986733 1Milliliter 05/22/2012 N o longer Active Immunizations Vaccine Codes Date Status Influenza CVX: 141 02/19 completed Influenza CVX: 141 02/13 completed Tetanus, Diptheria, Pertussis CVX: 113 10/23/2014 completed Tetanus/Diptheria CVX: 113 10/23/2014 completed PPD Unknown 09/25/2014 completed Influenza CVX: 141 01/29 completed Pneumococcal CVX: 33 completed Influenza CVX: 141 03/30 completed Influenza CVX: 141 03/07 completed Influenza CVX: 141 02/22 completed Influenza CVX: 141 02/11 completed Assessments Condition Codes Effectiv e Dates Dysuria ICD-10: [...] unspecified ICD-10: E03.9 ICD-9: 244.9 09/23/2015 Other assisted (current) drug therapy ICD-10: Z79.899 ICD-9: V58.69 [...] IMPAIRED FASTING GLUCOSE ICD-9: 790.21 03/20/2013 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 03/20/2013 ALLERGIC RHINITIS ICD-9: 477.9 03/20/2013 HYPERLIPIDEMIA ICD-9: 272.4 08/14/2012 VACCIN FOR INFLUENZA ICD-9: V04.81 02/23/2012 Vitamin D deficiency ICD-9: 268.9 12/01/2011 Osteoarthrosis, 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 08/11/2011 MASTODYNIA ICD-9: 611.71 06/01/2011 ABRASION HAND ICD-9: 914.0 06/01/2011 Flatulence ICD-9: 787.3 06/01/2011 Reason For Visit Reason For Visit Effective Dates Notes nasal [...] Pt states she had a very difficult [place] - Pt saw her psychiatrist 04/19/11 breast complaint 05/18/2011 Pt states she had a very difficult [place] - Pt saw her psychiatrist 04/19/11 Results Observation Observation Code Item Item Code Result Date Culture Urine [id number] URI NE CULTURE SEE NOTES 11/15/2016 Culture Urine [id number] Con tinued Results 11/15/2016 Urine Culture Ucult Comp lete Growth of aerobe sent to ref lab 11/11/2016 Urine Culture Ucult Prel iminary NO Growth Day 1 09/11 Urine Culture Ucult Comp lete NO Growth Day 2 09/11 C A/B FLU 2309638 Influe nza A Scr Negative 08/09/2016 C A/B FLU 4060645 Influe nza B Scr Negative 08/09/2016 C RAP A SC 8452757 Strep A Negative 01/26/2016 Lipid Ord30 CHOL 189 mg/dL 01/01/2016 Lipid Ord30 HDL 46.0 mg/dl 01/01/2016 Lipid Ord30 TRIG 111 mg/dL 01/01/2016 Lipid Ord30 LDL 121 mg/dL 01/01/2016 Lipid Ord30 C/HDL 4.1 Ratio 01/01/2016 Urine Culture Ucult Prel iminary NO Growth Day 1 12/26 Urine Culture Ucult Comp lete NO Growth Day 2 12/26 Valproic Acid Gpc288 BHARATH PROIC 30.0 ug/ml 09/23/2015 Cbc With Differential Ord2 WBC 7.77 K/ul 09/23/2015 Cbc With Differential Ord2 RBC 5.16 M/ul 09/23/2015 Cbc With Differential Ord2 HGB 14.4 g/dl 09/23/2015 Cbc With Differential Ord2 Neut% 49.2 % 09/23/2015 Cbc With Differential Ord2 HCT 44.3 % 09/23/2015 Cbc With Differential Ord2 MCV 85.9 fl 09/23/2015 Cbc With Differential Ord2 Lymph% 37.6 % 09/23/2015 Cbc With Differential Ord2 MCH 27.9 pg 09/23/2015 Cbc With Differential Ord2 [place]% 9.7 % 09/23/2015 Cbc With Differential Ord2 MCHC 32.5 pg 09/23/2015 Cbc With Differential Ord2 Eos% 3.1 % 09/23/2015 Cbc With Differential Ord2 PLT 254 K/ul 09/23/2015 Cbc With Differential Ord2 Baso% 0.4 % 09/23/2015 Cbc With Differential Ord2 RDW 15.6 % 09/23/2015 Cbc With Differential Ord2 Neut ABS# 3.83 K/ul 09/23/2015 Cbc With Differential Ord2 Lymph ABS# 2.92 K/ul 09/23/2015 Cbc With Differential Ord2 [place] ABS# 0.8 K/ul 09/23/2015 Cbc With Differential Ord2 Eos ABS# 0.2 K/ul 09/23/2015 Cbc With Differential Ord2 Baso ABS# 0.0 K/ul 09/23/2015 Cbc With Differential Ord2 New Analyzer Notice Please note new ref ranges s tarting 05-28-2015 due to implemntation of new five part differential hematolgy analyzer. 09/23/2015 Comp Metabolic Kvp765 NA 138 mEq/L 09/23/2015 Comp Metabolic Krz174 K 4.0 mEq/L 09/23/2015 Comp Metabolic Dye130 CL 105 mEq/L 09/23/2015 Comp Metabolic Saa301 CO2 26.0 mEq/L 09/23/2015 Comp Metabolic Qmm533 AN ION GAP 11 09/23/2015 Comp Metabolic Kwk178 GL UCOSE 87 mg/dL 09/23/2015 Comp Metabolic Gyp794 Cr eat 0.6 mg/dL 09/23/2015 Comp Metabolic Vky316 eG FR 95 ml/min/1.73m2 09/22 Comp Metabolic Kzi661 BUN 10 mg/dL 09/23/2015 Comp Metabolic Jao689 B/ C Ratio 15.6 Ratio 09/23/2015 Comp Metabolic Qqk795 CA LCIUM 8.6 mg/dL 09/23/2015 Comp Metabolic Abe877 AL K PHOS 104 U/L 09/23/2015 Comp Metabolic Gcf358 T(SGOT) 17 U/L 09/23/2015 Comp Metabolic Zgu773 AL T(SGPT) 14 U/L 09/23/2015 Comp Metabolic Rst769 BI LI T 0.3 mg/dL 09/23/2015 Comp Metabolic Ody686 AL BUMIN 3.8 g/dL 09/23/2015 Comp Metabolic Gwi671 TP RO 6.3 g/dL 09/23/2015 Comp Metabolic Nyq281 GL OB 2.5 g/dL 09/23/2015 Comp Metabolic Pff119 A/ G Ratio 1.5 Ratio 09/23/2015 Comp Metabolic Vpf807 Os mo 274 mOsmo 09/23/2015 Free T4 Cjx016 FREE T4 1.05 ng/dL 09/23/2015 Tsh Ord6 hTSH II 1.84 uIU/mL 09/23/2015 Culture Urine [id number] URI NE CULTURE SEE NOTES 07/10/2015 Culture Urine [id number] Con tinued Results 07/10/2015 Urine Culture Ucult Comp lete >100,000 col/ml aerobic grow th sent to ref lab 07/08/2015 Comp Metabolic Uto935 NA 140 mEq/L 06/24/2015 Comp Metabolic Oja338 K 4.3 mEq/L 06/24/2015 Comp Metabolic Gqg737 CL 103 mEq/L 06/24/2015 Comp Metabolic Ezm130 CO2 32.0 mEq/L 06/24/2015 Comp Metabolic Htb077 AN ION GAP 9 06/24/2015 Comp Metabolic Tpc457 GL UCOSE 87 mg/dL 06/24/2015 Comp Metabolic Piv951 Cr eat 0.8 mg/dL 06/24/2015 Comp Metabolic Dhj302 eG FR 76 ml/min/1.73m2 06/24 Comp Metabolic Aew861 BUN 10 mg/dL 06/24/2015 Comp Metabolic Ufb833 B/ C Ratio 12.8 Ratio 06/24/2015 Comp Metabolic Pgf506 CA LCIUM 9.0 mg/dL 06/24/2015 Comp Metabolic Tai457 AL K PHOS 93 U/L 06/24/2015 Comp Metabolic Dtu761 T(SGOT) 16 U/L 06/24/2015 Comp Metabolic Kdg467 AL T(SGPT) 10 U/L 06/24/2015 Comp Metabolic Zvq832 BI LI T 0.4 mg/dL 06/24/2015 Comp Metabolic Mzg977 AL BUMIN 3.8 g/dL 06/24/2015 Comp Metabolic Lin630 TP RO 6.2 g/dL 06/24/2015 Comp Metabolic Eib483 GL OB 2.4 g/dL 06/24/2015 Comp Metabolic Rvo807 A/ G Ratio 1.5 Ratio 06/24/2015 Comp Metabolic Csw381 Os mo 278 mOsmo 06/24/2015 Cbc With Differential Ord2 WBC 8.23 K/ul 06/24/2015 Cbc With Differential Ord2 RBC 5.11 M/ul 06/24/2015 Cbc With Differential Ord2 HGB 14.5 g/dl 06/24/2015 Cbc With Differential Ord2 Neut% 41.6 % 06/24/2015 Cbc With Differential Ord2 HCT 44.6 % 06/24/2015 Cbc With Differential Ord2 MCV 87.3 fl 06/24/2015 Cbc With Differential Ord2 Lymph% 42.6 % 06/24/2015 Cbc With Differential Ord2 MCH 28.4 pg 06/24/2015 Cbc With Differential Ord2 [place]% 10.0 % 06/24/2015 Cbc With Differential Ord2 MCHC 32.5 pg 06/24/2015 Cbc With Differential Ord2 Eos% 4.9 % 06/24/2015 Cbc With Differential Ord2 PLT 269 K/ul 06/24/2015 Cbc With Differential Ord2 Baso% 0.9 % 06/24/2015 Cbc With Differential Ord2 RDW 15.4 % 06/24/2015 Cbc With Differential Ord2 Neut ABS# 3.43 K/ul 06/24/2015 Cbc With Differential Ord2 Lymph ABS# 3.51 K/ul 06/24/2015 Cbc With Differential Ord2 [place] ABS# 0.8 K/ul 06/24/2015 Cbc With Differential Ord2 Eos ABS# 0.4 K/ul 06/24/2015 Cbc With Differential Ord2 Baso ABS# 0.1 K/ul 06/24/2015 Cbc With Differential Ord2 New Analyzer Notice Please note new ref ranges s tarting 05-28-2015 due to implemntation of new five part differential hematolgy analyzer. 06/24/2015 Free T4 Xmj514 FREE T4 0.98 ng/dL 06/24/2015 Tsh Ord6 hTSH II 3.48 uIU/mL 06/24/2015 Lipid Ord30 CHOL 158 mg/dL 06/24/2015 Lipid Ord30 HDL 45.0 mg/dl 06/24/2015 Lipid Ord30 TRIG 129 mg/dL 06/24/2015 Lipid Ord30 LDL 87 mg/dL 06/24/2015 Lipid Ord30 C/HDL 3.5 Ratio 06/24/2015 Valproic Acid Tks147 BHARATH PROIC 42.0 ug/ml 06/24/2015 TSH 4463515 TSH 1.199 uIU/ML 08/20/2013 FREE T4 6095526 FREE T4 1.06 NG/DL 08/20/2013 URINALYSIS NONAUTO W/O SCOPE 85909 Specific [place] 1.010 DateTime(Free Text in Apr) URINALYSIS NONAUTO W/O SCOPE 31588 PH 6.0 DateTime(Free Jayy t in Apr) URINALYSIS NONAUTO W/O SCOPE 55602 GLUCOSE neg DateTime(Free Jayy t in Aprima) URINALYSIS NONAUTO W/O SCOPE 11965 Protein neg DateTime(Free Jayy t in Aprima) URINALYSIS NONAUTO W/O SCOPE 35077 Blood 1+ DateTime(Free Text in Aprima) URINALYSIS NONAUTO W/O SCOPE 00624 Bilirubin neg DateTime(Free Jayy t in Aprima) URINALYSIS NONAUTO W/O SCOPE 19129 Ketones neg DateTime(Free Jayy t in Aprima) URINALYSIS NONAUTO W/O SCOPE 83161 Urobilinogen neg DateTime(Free Text in Aprima) URINALYSIS NONAUTO W/O SCOPE 64700 Nitrite neg DateTime(Free Jayy t in Aprima) URINALYSIS NONAUTO W/O SCOPE 38415 Leukocytes 1+ DateTime(Free Text in Aprima) URINALYSIS NONAUTO W/O SCOPE 18070 Specific [place] 1.005 DateTime(Free Text in Aprima) URINALYSIS NONAUTO W/O SCOPE 27742 PH 7 DateTime(Free Text in Aprima) URINALYSIS NONAUTO W/O SCOPE 84558 GLUCOSE neg DateTime(Free Jayy t in Aprima) URINALYSIS NONAUTO W/O SCOPE 83525 Protein neg DateTime(Free Jayy t in Aprima) URINALYSIS NONAUTO W/O SCOPE 60770 Blood trace DateTime(Free T ext in Aprima) URINALYSIS NONAUTO W/O SCOPE 43183 Bilirubin neg DateTime(Free Jayy t in Aprima) URINALYSIS NONAUTO W/O SCOPE 67100 Ketones neg DateTime(Free Jayy t in Aprima) URINALYSIS NONAUTO W/O SCOPE 38031 Urobilinogen neg DateTime(Free Text in Aprima) URINALYSIS NONAUTO W/O SCOPE 87350 Nitrite neg DateTime(Free Jayy t in Aprima) URINALYSIS NONAUTO W/O SCOPE 65810 Leukocytes neg DateTime(Free Text in Aprima) UA 00499 Specific [place] 1.005 DateTime(Free Text in Aprima ) UA 93941 PH 6 DateTime(Free Text in Aprima ) UA 30657 GLUCOSE neg DateTime(Free Text in Aprima ) UA 99844 Protein neg DateTime(Free Text in Aprima ) UA 95874 Blood trace DateTime(Free Text in Aprima ) UA 23260 Bilirubin neg DateTime(Free Text in ) UA 26305 Ketones neg DateTime(Free Text in ) UA 02932 Urobilinogen 0.2 DateTime(Free Text in ) UA 53360 Nitrite neg DateTime(Free Text in ) UA 13554 Leukocytes neg DateTime(Free Text in ) Review of Systems System Result Effective Dates Constitutional No recent [...] Genitourinary/Nephrology No urinary incontinence 07/20/2016 Psychiatric anxiety 03/0 11/2016 Psychiatric depression 0 07/20/2016 Psychiatric disturbances [...] 06/19/2015 Musculoskeletal No myalgias 06/19/2015 Psychiatric anxiety /08/2015 Psychiatric depression 0 06/19/2015 Constitutional No recent [...] No alteration of consciousness 05/19/2015 Psychiatric anxiety 08/2015 Psychiatric depression 0 05/19/2015 Constitutional No [...] 08/20/2013 Dermatologic No rash 11/2013 Psychiatric anxiety 0411/2013 Psychiatric depression 0 08/20/2013 Psychiatric disturbances of [...] affect 07/10/2013 None Full Exam - General 1995 Abdomen abdominal exam Overall: normal bowel sounds 03/20/2013 None Full Exam - General 1994 Psychiatric orientation/consciousness Overall: oriented to person, place and time 03/20/2013 None Full Exam - General 1995 Lymphatic neck nodes Overall: anterior cervical chain benign 03/20/2013 None Full Exam - General 1995 Lymphatic neck nodes Overall: posterior cervical chain benign 03/20/2013 None Full Exam - General 1995 Eyes conjunctiva/eyelids Overall: cornea clear 03/20/2013 None [...] 03/20/2013 None Full Exam - General 1995 Eyes conjunctiva/eyelids Overall: eyelids normal 03/20/2013 None Full Exam - General 1995 Constitutional general appearance Overall: well developed 03/07/2013 [...] light 03/07/2013 None Full Exam - General 1994 [...] sounds 03/07/2013 None Full Exam - General 1995 Musculoskeletal head and neck Overall: head atraumatic 03/07/2013 None Full Exam - General 1995 Musculoskeletal head and neck Overall: cervical spine benign 03/07/2013 None Full Exam - General 1994 Neurologic gait Overall: no ataxia, no unsteadiness 03/07/2013 None Full Exam - General 1995 Psychiatric orientation/consciousness Overall: oriented to person, place and time 03/07/2013 None Full Exam - General 1994 Psychiatric mood and affect Overall: normal mood and affect 03/07/2013 None Full Exam - General 1995 Constitutional general appearance Overall: well developed 01/22/2013 None Full Exam - General 1995 Constitutional general appearance Overall: in no acute distress 01/22/2013 None Full Exam - General 1995 Constitutional general appearance Overall: well nourished 01/22/2013 None Full Exam - General 1995 Eyes pupils and irises Pupil: round 01/22/2013 None Full Exam - General 1994 Eyes [...] masses 01/22/2013 None Full Exam - General 1994 Respiratory auscultation Overall: breath sounds clear bilaterally 01/22/2013 None Full Exam - General 1994 Respiratory respiratory effort/rhythm Overall: no retractions 01/22/2013 None Full Exam - General 1994 Respiratory respiratory effort/rhythm Overall: normal rate 01/22/2013 None Full Exam - General 1994 Cardiovascular auscultation of heart Overall: regular rate 01/22/2013 None Full Exam - General 1994 Cardiovascular auscultation of heart Overall: normal heart sounds 01/22/2013 None Full Exam - General 1994 Cardiovascular auscultation of heart Overall: no murmurs 01/22/2013 None Full Exam - General 1994 Abdomen abdominal exam Overall: no tenderness 01/22/2013 None Full Exam - General 1994 Abdomen abdominal exam Overall: normal bowel sounds 01/22/2013 None Full Exam - General 1994 Musculoskeletal head and neck Overall: head atraumatic 01/22/2013 None Full Exam - General 1994 Musculoskeletal [...] 1995 Ears/Nose/Throat oral cavity/pharynx/larynx Overall: no masses 08/14/2012 [...] murmurs 08/14/2012 None Full Exam - General 1995 Chest/Breast breast and axillae palpation Nipple: non-tender 08/14/2012 None Full Exam - General 1994 Chest/Breast breast and axillae palpation Nipple: no discharge 08/14/2012 None Full Exam - General 1995 Chest/Breast breast and axillae palpation Axillae: no mass 08/14/2012 None Full Exam - General 1994 Chest/Breast breast and axillae palpation Upper inner quadrant: no mass 08/14/2012 None Full Exam - General 1995 Chest/Breast breast and axillae palpation Upper outer quadrant: no mass 08/14/2012 None Full Exam - General 1995 Chest/Breast breast and axillae palpation Lower inner quadrant: no mass 08/14/2012 None Full Exam - General 1995 Chest/Breast breast and axillae palpation Lower inner quadrant: non-tender 08/14/2012 None Full Exam - General 1994 Chest/Breast breast and axillae palpation Lower inner quadrant: tender 08/14/2012 over bill 8 o clock position Full Exam - [...] axillae palpation Lower inner quadrant: non-tender 04/17/2012 None Full Exam - General 1994 Chest/Breast breast and axillae palpation Lower inner quadrant: tender 04/17/2012 over bill 8 o clock position Full Exam - [...] axillae palpation Lower inner quadrant: non-tender 12/01/2011 None Full Exam - General 1994 Chest/Breast breast and axillae palpation Lower inner quadrant: tender 12/01/2011 over bill 8 o clock position Full Exam - [...] clear 12/01/2011 None Full Exam - General 1995 Ears/Nose/Throat oral cavity/pharynx/larynx Overall: oral mucosa clear 12/01/2011 None Full Exam - General 1995 Ears/Nose/Throat [...] mass 08/11/2011 None Full Exam - General 1995 Chest/Breast breast and axillae palpation Upper inner quadrant: no mass 08/11/2011 None Full Exam - General 1995 Chest/Breast breast and axillae palpation Upper outer quadrant: no mass 08/11/2011 None Full Exam - General 1994 Chest/Breast breast and axillae palpation Lower inner quadrant: no mass 08/11/2011 None Full Exam - General 1995 Chest/Breast breast and axillae palpation Lower inner quadrant: non-tender 08/11/2011 None Full Exam - General 1994 Chest/Breast breast and axillae palpation Lower inner quadrant: tender 08/11/2011 over bill 8 o clock position Full Exam - [...] distress 06/01/2011 None Full Exam - General 1995 [...] masses 05/18/2011 None Full Exam - General 1994 [...] palpation Lower inner quadrant: tender 05/18/2011 over bill 8 o clock position Full Exam - General 1994 Chest/Breast breast and axillae palpation Lower inner quadrant: non-tender 05/18/2011 None Full Exam - General [...] mood and affect Mood: anxious 05/18/2011 None Procedures Procedure Codes Date URINALYSIS NONAUTO W /O SCOPE CPT-4: 62994Jwtudvd 11/10/2016 ADMIN INFLUENZA VIRU S VAC CPT-4: M3941Rqcveur 02/20/2016 FLU VACC 4 BHARATH 3 YRS PLUS IM Formatting Model/CDA Sections, Assigned to/Juli Cerrato CT: [id number] CPT-4: 91533Bhfesnl 02/20/2016 TRIAMCINOLONE ACET I [place] NOS CPT-4: J6850Bdnnisj 01/26/2016 URINALYSIS NONAUTO W /O SCOPE CPT-4: 88762Cjooydd 09/23/2015 URINALYSIS NONAUTO W /O SCOPE CPT-4: 02155Llindjl 07/07/2015 ADMIN INFLUENZA VIRU S VAC Formatting Model/CDA Sections, Assigned to CPT-4: O7860Uiqtsdh 02/13/2015 FLU VACC 4 BHARATH 3 YRS PLUS IM Formatting Model/CDA Sections, Assigned to SNOMED CT: [id number] CPT-4: 03659Ulqdxdd 02/13/2015 TENIVAC TD VACCINE N O PRSRV 7/> IM Assigned to CPT-4: 04779Izmyyqw 10/23/2014 URINALYSIS NONAUTO W /O SCOPE CPT-4: 75996Bcydrgn 10/23/2014 OCCULT BLOOD FECES CPT-4: 80740Oyrlhai 10/08/2014 PPPS, SUBSEQ VISIT CPT-4: L1347Ifxuwlu 10/02/2014 TRIAMCINOLONE ACET I [place] NOS CPT-4: G7570Qogqdvx 07/08/2014 URINALYSIS NONAUTO W /O SCOPE CPT-4: 99599Qwjkvoa 06/03/2014 THER/PROPH/DIAG INJ SC/IM CPT-4: 53338Byfcpmq 04/18/2014 KETOROLAC TROMETHAMI NE INJ CPT-4: J8310Zccnnql 04/18/2014 ADMIN INFLUENZA VIRU S VAC CPT-4: L7756Rivktnp 01/29/2014 ADMIN PNEUMOCOCCAL V ACCINE Assigned to/Juli Cerrato SNOMED CT: [id number] CPT-4: X0134Eehwera 01/29/2014 FLU VAC NO PRSV 4 VA L 3 YRS+ CPT-4: 76128Xaxjdzt 01/29/2014 URINALYSIS NONAUTO W /O SCOPE CPT-4: 93568Uulrayh 11/12/2013 ROUTINE VENIPUNCTURE CPT-4: 24715Dsanhkc 08/20/2013 TRIAMCINOLONE ACET I [place] NOS CPT-4: P4018Qwdwqex 03/20/2013 THER/PROPH/DIAG INJ SC/IM CPT-4: 86272Tqbtvek 03/20/2013 URINALYSIS NONAUTO W /O SCOPE CPT-4: 22169Hpzzege 03/01/2013 URINALYSIS NONAUTO W /O SCOPE CPT-4: 31906Ixrtyft 09/04/2012 TRIAMCINOLONE ACET I [place] NOS CPT-4: D4104Tlnljnz 08/22/2012 ROCEPHIN, PER 250 MG CPT-4: A3837Ygcfnfr 08/22/2012 TRIAMCINOLONE ACET I [place] NOS CPT-4: Y9587Cihdunc 05/22/2012 THER/PROPH/DIAG INJ SC/IM CPT-4: 68093Byvaxht 05/22/2012 ROCEPHIN, PER 250 MG CPT-4: U4325Kopepxf 05/22/2012 PRESCRIP TRANSMIT A ERX SY CPT-4: C9426Vlsypml 05/22/2012 ADMIN INFLUENZA VIRU S VAC CPT-4: W9522Gqcwgrd 02/23/2012 FLULAVAL VACC, 3 YRS & >, IM CPT-4: Q0018Ulkzdtu 02/23/2012 PRESCRIP TRANSMIT A ERX SY CPT-4: R9096Amcujkk 06/01/2011 Vital Signs Date Vital 10/19/2016 Blood Pressure 1: 126/64 Code: 8480-6 Heart Rate 1: 93 bpm Height: 5' SpO2: 97% Weight: 08/09/2016 Blood Pressure 1: 116/68 Code: 8480-6 BMI: 40.2 Code: 61678-6 Heart Rate 1: 98 bpm Height: 5' SpO2: 97% Temperature: 37.5 (C ) / 99.5 (F) Weight: 206 lbs 07/20/2016 Blood Pressure 1: 126/74 Code: 8480-6 BMI: 40.2 Code: 58575-6 Heart Rate 1: 94 bpm Height: 5' SpO2: 95% Weight: 206 lbs 05/27/2016 Blood Pressure 1: 136/76 Code: 8480-6 BMI: 39.1 Code: 10221-1 Heart Rate 1: 95 bpm Height: 5' SpO2: 98% Weight: 200 lbs 04/29/2016 Blood Pressure 1: 128/76 Code: 8480-6 Heart Rate 1: 72 bpm Height: SpO2: 96% Weight: 04/02/2016 Blood Pressure 1: 138/88 Code: 8480-6 BMI: 38.5 Code: 39742-0 Heart Rate 1: 88 bpm Height: 5' SpO2: 96% Weight: 197 lbs 03/18/2016 Blood Pressure 1: 148/88 Code: 8480-6 BMI: 38.5 Code: 49305-0 Heart Rate 1: 66 bpm Height: 5' SpO2: 98% Weight: 197 lbs 01/26/2016 BMI: 39.5 Code: 25596-4 Height: 5' Weight: 202 lbs 01/01/2016 Blood Pressure 1: 120/80 Code: 8480-6 BMI: 40.0 Code: 94819-5 Heart Rate 1: 86 bpm Height: 5' SpO2: 94% Weight: 205 lbs 12/25/2015 Blood Pressure 1: 138/80 Code: 8480-6 BMI: 40.0 Code: 38791-3 Height: 5' Weight: 205 lbs 12/08/2015 Blood Pressure 1: 122/72 Code: 8480-6 Heart Rate 1: 100 bpm Height: 5' SpO2: 98% 09/23/2015 Blood Pressure 1: 130/82 Code: 8480-6 BMI: 40.2 Code: 71944-3 Heart Rate 1: 77 bpm Height: 5' SpO2: 97% Weight: 206 lbs 06/19/2015 Blood Pressure 1: 128/80 Code: 8480-6 BMI: 40.8 Code: 66774-9 Heart Rate 1: 80 bpm Height: 5' SpO2: 94% Weight: 209 lbs 05/19/2015 Blood Pressure 1: 128/78 Code: 8480-6 BMI: 41.0 Code: 04180-3 Heart Rate 1: 103 bpm Height: 5' SpO2: 97% Weight: 210 lbs 04/28/2015 Blood Pressure 1: 128/76 Code: 8480-6 BMI: 41.4 Code: 94398-0 Heart Rate 1: 72 bpm Height: 5' Weight: 212 lbs 03/18/2015 Blood Pressure 1: 128/78 Code: 8480-6 BMI: 41.6 Code: 72198-4 Heart Rate 1: 74 bpm Height: 5' SpO2: 97% Weight: 213 lbs 02/27/2015 Blood Pressure 1: 128/70 Code: 8480-6 BMI: 41.2 Code: 03229-3 Heart Rate 1: 74 bpm Height: 5' SpO2: 95% Weight: 211 lbs 02/13/2015 Blood Pressure 1: 148/80 Code: 8480-6 BMI: 41.2 Code: 90037-8 Heart Rate 1: 90 bpm Height: 5' SpO2: 95% Weight: 211 lbs 11/18/2014 Blood Pressure 1: 124/60 Code: 8480-6 BMI: 40.8 Code: 68747-9 Heart Rate 1: 75 bpm Height: 5' SpO2: 97% Weight: 209 lbs 10/23/2014 Blood Pressure 1: 118/70 Code: 8480-6 BMI: 43.3 Code: 45547-1 Heart Rate 1: 78 bpm Height: 4'10" SpO2: 96% Temperature: 36.5 (C ) / 97.7 (F) Weight: 207 lbs 10/02/2014 Blood Pressure 1: 118/78 Code: 8480-6 BMI: 42.5 Code: 26436-3 Heart Rate 1: 77 bpm Height: 4'10" SpO2: 97% Waist Measure (cm): 107 cm Weight: 207 lbs 09/25/2014 Blood Pressure 1: 140/78 Code: 8480-6 Blood Pressure 2: 140/80 Code: 8480-6 09/23/2014 Blood Pressure 1: 106/62 Code: 8480-6 BMI: 42.9 Code: 16671-9 Heart Rate 1: 99 bpm Height: 4'10" SpO2: 97% Weight: 209 lbs 07/08/2014 Blood Pressure 1: 136/82 Code: 8480-6 BMI: 43.6 Code: 70025-0 Heart Rate 1: 72 bpm Height: 4'10" SpO2: 96% Temperature: 37.0 (C ) / 98.6 (F) Weight: 212 lbs 05/31/2014 Blood Pressure 1: 140/88 Code: 8480-6 BMI: 41.1 Code: 54805-8 Heart Rate 1: 92 bpm Height: 4'10" Weight: 200 lbs 04/18/2014 Blood Pressure 1: 132/78 Code: 8480-6 BMI: 41.9 Code: 88009-4 Heart Rate 1: 80 bpm Height: 4'10" Weight: 204 lbs 03/05/2014 Blood Pressure 1: 128/80 Code: 8480-6 BMI: 41.3 Code: 45068-1 Heart Rate 1: 60 bpm Height: 4'10" SpO2: 96% Weight: 201 lbs 01/29/2014 Blood Pressure 1: 142/88 Code: 8480-6 BMI: 41.5 Code: 79438-9 Heart Rate 1: 80 bpm Height: 4'10" Weight: 202 lbs 10/23/2013 Blood Pressure 1: 110/56 Code: 8480-6 BMI: 41.5 Code: 09840-0 Heart Rate 1: 76 bpm Height: 4'10" Weight: 202 lbs 10/11/2013 Blood Pressure 1: 124/74 Code: 8480-6 BMI: 41.5 Code: 88654-2 Heart Rate 1: 76 bpm Height: 4'10" Weight: 202 lbs 09/17/2013 Blood Pressure 1: 140/84 Code: 8480-6 Heart Rate 1: 80 bpm Weight: 203 lbs 08/27/2013 Blood Pressure 1: 124/80 Code: 8480-6 Heart Rate 1: 72 bpm Weight: 08/20/2013 Blood Pressure 1: 110/50 Code: 8480-6 BMI: 40.3 Code: 31627-0 Heart Rate 1: 72 bpm Height: 4'10" Weight: 196 lbs 07/10/2013 Blood Pressure 1: 110/56 Code: 8480-6 Heart Rate 1: 82 bpm SpO2: 95% Weight: 03/20/2013 Blood Pressure 1: 158/80 Code: 8480-6 Heart Rate 1: 72 bpm Temperature: 37.1 (C) / 98.8 (F) Weight: 189 lbs 03/07/2013 Blood Pressure 1: 108/66 Code: 8480-6 BMI: 38.8 Code: 26999-5 Heart Rate 1: 76 bpm Height: 4'10" Weight: 189 lbs 01/22/2013 Blood Pressure 1: 110/68 Code: 8480-6 BMI: 38.8 Code: 96268-8 Heart Rate 1: 76 bpm Height: 4'10" Weight: 189 lbs 08/22/2012 Blood Pressure 1: 126/68 Code: 8480-6 BMI: 37.0 Code: 60147-0 Heart Rate 1: 76 bpm Height: 4'10" Temperature: 36.7 (C ) / 98.0 (F) Weight: 180 lbs 08/14/2012 Blood Pressure 1: 106/64 Code: 8480-6 BMI: 36.6 Code: 43760-1 Heart Rate 1: 72 bpm Height: 4'10" Weight: 178 lbs 05/22/2012 Blood Pressure 1: 124/72 Code: 8480-6 Heart Rate 1: 80 bpm Temperature: 36.4 (C) / 97.6 (F) Weight: 185 lbs 04/17/2012 Blood Pressure 1: 120/66 Code: 8480-6 BMI: 37.0 Code: 33325-3 Heart Rate 1: 65 bpm Height: 4'10" SpO2: 98% Weight: 180 lbs 12/01/2011 Blood Pressure 1: 122/58 Code: 8480-6 Heart Rate 1: 76 bpm Respiratory Rate: 24 bpm Weight: 175 lbs 08/11/2011 Blood Pressure 1: 98/44 Code: 8480-6 BMI: 34.1 Code: 66452-8 Heart Rate 1: 86 bpm Height: 4'10" Respiratory Rate: 16 bpm Weight: 166 lbs 06/01/2011 Blood Pressure 1: 104/62 Code: 8480-6 BMI: 34.8 Code: 90257-8 Heart Rate 1: 72 bpm Height: 4'10" Respiratory Rate: 16 bpm Weight: 169 lbs 8 oz 05/18/2011 Blood Pressure 1: 130/66 Code: 8480-6 BMI: 34.8 Code: 85547-5 Heart Rate 1: 64 bpm Height: 4'11" Respiratory Rate: 16 bpm Weight: 171 lbs Functional Status No Functional Status data History of Present Illness Symptom Name Status [...] None Hospital Follow Up _ Oth er: [facility] 02/13/2015 None back pain Quality dull [...] days ago 08/27/2013 fell on cement at [employer] ankle pain Pertinent Findings stiffness 08/27/2013 None [...] Hospital Follow Up _ Oth er: from [facility] 08/20/2013 started on remeron and zyprexa changed [...] t states that since her stay in [facility] - she is much [...] Exercise no exercise 03/20/2013 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 03/07/2013 None hypothyroid Severity mil d [...] Findings Denies edema 03/07/2013 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 01/22/2013 None hypothyroid Severity mil d [...] known all ergens 08/22/2012 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 P ATIENT, LEVEL III Diagnosis: Unsteadiness on feet[ICD10: R26.81] Diagnosis: Unspecified fracture of left calcaneus, initial encounter for closed fracture[ICD10: S92.002A] Diagnosis: Allergic rhinitis due to pollen[ICD10: J30.1] Michelle Littlejohn MD, [facility] CPT-4: 97203 10/19/2016 ([id number]) 33521 EST. P ATIENT, LEVEL III Diagnosis: Cough[ICD10: R05] Diagnosis: Fever, unspecified[ICD10: R50.9] Diagnosis: Acute recurrent maxillary sinusitis[ICD10: J01.01] Michelle Littlejohn MD, [facility] CPT-4: 82022 08/09/2016 ([id number]) 33201 EST. P ATIENT, LEVEL III Diagnosis: Essential (primary) hypertension[ICD10: I10] Diagnosis: Allergic rhinitis due to pollen[ICD10: J30.1] Diagnosis: Bipolar disorder, current episode depressed, moderate[ICD10: F31.32] Michelle Littlejohn MD, [facility] CPT-4: 36994 07/20/2016 ([id number]) 59361 EST. P ATIENT, LEVEL III Diagnosis: Cough[ICD10: R05] Diagnosis: Bipolar disorder, current episode depressed, moderate[ICD10: F31.32] Diagnosis: Acute upper respiratory infection, unspecified[ICD10: J06.9] Michelle Littlejohn MD, [facility] CPT-4: 46492 05/27/2016 ([id number]) 13550 EST. P ATIENT, LEVEL III Diagnosis: Bipolar disorder, current episode manic without psychotic features, moderate[ICD10: F31.12] Diagnosis: Essential (primary) hypertension[ICD10: I10] Michelle Littlejohn MD, [facility] CPT-4: 32763 04/29/2016 ([id number]) 16529 EST. P ATIENT, LEVEL III Diagnosis: Bipolar disorder, current episode depressed, moderate[ICD10: F31.32] Michelle Littlejohn MD, [facility] CPT-4: 72318 04/02/2016 ([id number]) 34362 EST. P ATIENT, LEVEL IV Diagnosis: Bipolar disorder, current episode manic without psychotic features, moderate[ICD10: F31.12] Diagnosis: Essential (primary) hypertension[ICD10: I10] Michelle Littlejohn MD, [facility] CPT-4: 10696 03/18/2016 ([id number]) 13274 EST. P ATIENT, LEVEL III Diagnosis: Acute laryngopharyngitis[ICD10: J06.0] Diagnosis: Cough[ICD10: R05] Diagnosis: Allergic rhinitis due to pollen[ICD10: J30.1] Michelle Littlejohn MD, [facility] CPT-4: 71853 01/26/2016 ([id number]) Miscellaneou s no charge Diagnosis: Other seborrheic keratosis[ICD10: L82.1] Michelle Littlejohn MD, [facility] CPT-4: 58251 01/01/2016 ([id number]) 08520 EST. P ATIENT, LEVEL III Diagnosis: Essential (primary) hypertension[ICD10: I10] Diagnosis: Mixed hyperlipidemia[ICD10: E78.2] Diagnosis: Other obesity due to excess calories[ICD10: E66.09] Diagnosis: Frequency of micturition[ICD10: R35.0] Michelle Littlejohn MD, [facility] CPT-4: 45100 12/25/2015 ([id number]) 15181 EST. P ATIENT, LEVEL IV Diagnosis: Gastro-esophageal reflux disease without esophagitis[ICD10: K21.9] Diagnosis: Essential (primary) hypertension[ICD10: I10] Diagnosis: Generalized anxiety disorder[ICD10: F41.1] Michelle Littlejohn MD, [facility] CPT-4: 73074 12/08/2015 ([id number]) 43610 EST. P ATIENT, LEVEL IV Diagnosis: Bipolar disorder, current episode depressed, moderate[ICD10: F31.32] Diagnosis: Essential (primary) hypertension[ICD10: I10] Diagnosis: Hypothyroidism, unspecified[ICD10: E03.9] Diagnosis: Allergic rhinitis due to pollen[ICD10: J30.1] Diagnosis: Dysuria[ICD10: R30.0] Michelle Littlejohn MD, [facility] CPT-4: 02961 09/23/2015 ([id number]) 38917 EST. P ATIENT, LEVEL III Diagnosis: Essential (primary) hypertension[ICD10: I10] Diagnosis: Hypothyroidism, unspecified[ICD10: E03.9] Diagnosis: Mixed hyperlipidemia[ICD10: E78.2] Diagnosis: Bipolar disorder, current episode depressed, moderate[ICD10: F31.32] Michelle Littlejohn MD, [facility] CPT-4: 42858 06/19/2015 ([id number]) 42796 EST. P ATIENT, LEVEL III Diagnosis: Essential (primary) hypertension[ICD10: I10] Diagnosis: Major depressive disorder, single episode, unspecified[ICD10: F32.9] Michelle Littlejohn MD, [facility] CPT-4: 03674 05/19/2015 ([id number]) 99261 EST. P ATIENT, LEVEL III Diagnosis: Rash and other nonspecific skin eruption[ICD10: R21] Jodie Littlejohn MD, [facility] CPT-4: 14549 04/28/2015 ([id number]) 83736 EST. P ATIENT, LEVEL III Diagnosis: Essential (primary) hypertension[ICD10: I10] Diagnosis: Bipolar disorder, current episode depressed, moderate[ICD10: F31.32] Michelle Littlejohn MD, [facility] CPT-4: 35463 03/18/2015 ([id number]) 09708 EST. P ATIENT, LEVEL II Diagnosis: Other seborrheic keratosis[ICD10: L82.1] Michelle Littlejohn MD, [facility] CPT-4: 78934 02/27/2015 ([id number]) 70618 EST. P ATIENT, LEVEL IV Diagnosis: Hypothyroidism, unspecified[ICD10: E03.9] Diagnosis: Bipolar disorder, current episode depressed, moderate[ICD10: F31.32] Michelle Littlejohn MD, [facility] CPT-4: 72670 02/13/2015 ([id number]) 19875 EST. P ATIENT, LEVEL III Diagnosis: Yeast infection involving the vagina and surrounding area[ICD9: 112.1] Diagnosis: Back pain[ICD9: 724.5] Diagnosis: Muscle strain[ICD9: 848.9] Katerin Littlejohn MD, [facility] CPT-4: 99688 11/18/2014 ([id number]) 24567 EST. P ATIENT, LEVEL IV Diagnosis: Dog bite[ICD9: 879.8] Diagnosis: CELLULITIS OF ARM[ICD9: 682.3] Diagnosis: DYSURIA[ICD9: 788.1] Katerin Littlejohn MD, [facility] CPT-4: 75113 10/23/2014 ([id number]) Miscellaneou s no charge Diagnosis: ESSENTIAL HYPERTENSION[ICD9: 401.9] Jodie Littlejohn MD, [facility] CPT- 4: 19414 09/25/2014 ([id number]) 48922 EST. P ATIENT, LEVEL IV Diagnosis: Hypotension[ICD9: 458.9] Diagnosis: DIZZINESS AND GIDDINESS[ICD9: 780.4] Diagnosis: HYPOTHYROIDISM[ICD9: 244.9] Michelle Littlejohn MD, [facility] CPT- 4: 80527 09/23/2014 ([id number]) 45230 EST. P ATIENT, LEVEL III Diagnosis: ACUTE URI[ICD9: 465.9] Diagnosis: COUGH[ICD9: 786.2] Diagnosis: EDEMA[ICD9: 782.3] Michelle Littlejohn MD, [facility] CPT-4: 66770 07/08/2014 ([id number]) 74300 EST. P ATIENT, LEVEL IV Diagnosis: ESSENTIAL HYPERTENSION[ICD9: 401.9] Diagnosis: HYPOTHYROIDISM[ICD9: 244.9] Diagnosis: Dysuria[ICD9: 788.1] Jodie Littlejohn MD, [facility] CPT-4: 51437 05/31/2014 ([id number]) 90271 EST. P ATIENT, LEVEL III Diagnosis: Back pain[ICD9: 724.5] Jodie Littlejohn MD, [facility] CPT-4: 12700 04/18/2014 ([id number]) 74146 EST. P ATIENT, LEVEL IV Diagnosis: Back pain[ICD9: 724.5] Diagnosis: Scab[ICD9: 782.8] Diagnosis: BIPOLAR AFFECTIVE, MANIC, UNSPEC[ICD9: 296.40] Jodie Littlejohn MD, C CPT-4: 22116 03/05/2014 ([id number]) 99287 EST. P ATIENT, LEVEL III Diagnosis: ESSENTIAL HYPERTENSION[ICD9: 401.9] Jodie Littlejohn MD, [facility] CPT- 4: 68742 01/29/2014 ([id number]) 84254 EST. P ATIENT, LEVEL IV Diagnosis: ESSENTIAL HYPERTENSION[SNOMED: 25016855] Diagnosis: EDEMA[ICD9: 782.3] Diagnosis: DEPRESSIVE DISORDER NEC[ICD9: 311] Jodie Littlejohn MD, [facility] CPT- 4: 25348 10/23/2013 22062 EST. PATIENT, LEVEL II Diagnosis: Rash[ICD9: 782.1] Michelle Littlejohn MD, [facility] CPT-4: 89301 10/11/2013 ([id number]) 89786 EST. P ATIENT, LEVEL III Diagnosis: EDEMA[ICD9: 782.3] Jodie Littlejohn MD, [facility] CPT-4: 71747 09/17/2013 ([id number]) 92364 EST. P ATIENT, LEVEL III Diagnosis: EDEMA[ICD9: 782.3] Diagnosis: Left ankle pain[ICD9: 719.47] Michelle Littlejohn MD, [facility] CPT- 4: 90702 08/27/2013 ([id number]) 74796 EST. P ATIENT, LEVEL IV Diagnosis: BIPOLAR AFFECTIVE, MANIC, UNSPEC[ICD9: 296.40] Diagnosis: HYPOTHYROIDISM[ICD9: 244.9] Jodie Littlejohn MD, [facility] CPT-4: 28890 08/20/2013 ([id number]) 87530 EST. P ATIENT, LEVEL IV Diagnosis: BIPOLAR AFFECTIVE, MANIC, UNSPEC[ICD9: 296.40] Diagnosis: DEPRESSIVE DISORDER NEC[ICD9: 311] Jodie Littlejohn MD, [facility] CPT- 4: 08702 07/10/2013 ([id number]) 28284 EST. 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 P ATIENT, LEVEL IV Diagnosis: Elevated fasting glucose[ICD9: 790.21] Diagnosis: HYPOTHYROIDISM[ICD9: 244.9] Diagnosis: DEPRESSIVE DISORDER NEC[ICD9: 311] Jodie Littlejohn MD, [facility] CPT- 4: 46867 03/07/2013 ([id number]) 65876 EST. P ATIENT, LEVEL III Diagnosis: HYPOTHYROIDISM[ICD9: 244.9] Diagnosis: DEPRESSIVE DISORDER NEC[ICD9: 311] Joide Littlejohn MD, [facility] CPT- 4: 11029 01/22/2013 ([id number]) 02649 EST. P ATIENT, LEVEL III Diagnosis: ACUTE URI[ICD9: 465.9] Diagnosis: COUGH[ICD9: 786.2] Michelle Littlejohn MD, [facility] CPT-4: 60073 08/22/2012 ([id number]) 12852 EST. P ATIENT, LEVEL IV Diagnosis: ESSENTIAL HYPERTENSION[SNOMED: 91994210] Diagnosis: HYPERLIPIDEMIA[ICD9: 272.4] Jodie Littlejohn MD, [facility] CPT-4: 09296 08/14/2012 ([id number]) 90959 EST. P ATIENT, LEVEL III Diagnosis: ACUTE URI[ICD9: 465.9] Jodie Littlejohn MD, [facility] CPT-4: 30750 05/22/2012 ([id number]) 74236 EST. P ATIENT, LEVEL III Diagnosis: ESSENTIAL HYPERTENSION[SNOMED: 70922080] Jodie Littlejohn MD, [facility] CPT-4: 91556 04/17/2012 ([id number]) 48908 EST. P ATIENT, LEVEL IV Diagnosis: HYPOTHYROIDISM[ICD9: 244.9] Diagnosis: HYPERLIPIDEMIA[ICD9: 272.4] Diagnosis: DEPRESSIVE DISORDER NEC[ICD9: 311] Diagnosis: Vitamin D deficiency[ICD9: 268.9] Jodie Littlejohn MD, [facility] CPT-4: 00794 12/01/2011 ([id number]) 87171 EST. 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 P ATIENT, LEVEL IV Diagnosis: MASTODYNIA[ICD9: 611.71] Diagnosis: DEPRESSIVE DISORDER NEC[ICD9: 311] Diagnosis: Flatulence[ICD9: 787.3] Diagnosis: ABRASION HAND[ICD9: 914.0] [facility] CPT-4: 55472 06/01/2011 76231 EST. PATIENT, LEVEL IV Diagnosis: Breast pain in female[ICD9: 611.71] Diagnosis: DEPRESSIVE DISORDER NEC[ICD9: 311] Diagnosis: HYPERLIPIDEMIA[ICD9: 272.4] Diagnosis: HYPOTHYROIDISM[ICD9: 244.9] Jodie Littlejohn MD, [facility] CPT-4: 30017 05/18/2011 Plan of Care Planned Activity Notes C odes Status Date Visit Plan: UTI - pt with positive urina lysis - culture sent if appropriate. Antibiotic electronically prescribed to pt's pharmacy of choice. Pt to call if symptoms do not improve. 11/10/2016 Patient Education: Patient Medication Summary Completed 11/10/2016 Visit Plan: Fracture of left heel-gait i nstability-seeing Dr Artis-no surgery required-patient is using wheelchair or walker with stand by assist-home health to continue working with her. Eeatxpzmq-jykxjuz-hvchzzkd daily anti histamine 10/19/2016 Appointment: Michelle Garcia WPtel: [address] [place], [place] [phone] (30 min) [facility] 10/19/2016 Patient Education: Patient Medication Summary Completed 10/19/2016 Appointment: Lab Draw 09/09/2016 Patient Education: Patient Medication Summary Completed 09/09/2016 Visit Plan: Sinusitis - Pt has acute inf ection - pain in face, maxillary region, Pt informed to use decongestant, RX given to patient, sinus rinses also recommended. Call if symptoms do not show improvement. 08/09/2016 Visit Plan: Sinusitis - Pt has acute inf ection - pain in face, maxillary region, Pt informed to use decongestant, RX given to patient, sinus rinses also recommended. Call if symptoms do not show improvement. 08/09/2016 Appointment: Michelle Garcia WPtel: [address] [place], [place] [phone] (15 min) Moderate 08/09/2016 Patient Education: Patient Medication Summary Completed 08/09/2016 Visit Plan: Hypertension - well controll ed - continue with current medications, continue with no added salt diet. Pt has been encouraged to exercise daily.The pt has been advised to call the office if there are any acute concerns about change in blood pressure readings at home.Allergies - chronic - recommended pt to use allergy medication as prescribed. Pt has been counseled as to the appropriate use of the medication. Pt to call if allergy symptoms are not controlled with the medication.If using nasal spray, instructions as follows: Nasal spray- use twice daily, one spray per nostril twice daily, after 30 minutes, rinse out nose with saline spray.. Use opposite hand per nostril to spray in the nasal steroid allergy spray.Bipolar-symptoms stable-no changes-call with any concerns. 07/20/2016 Appointment: Michelle Garcia WPtel: [address] [place], [place] [phone] (30 min) Complex 07/20/2016 Patient Education: Patient Medication Summary Completed 07/20/2016 Patient Education: Obesity Completed 07/20/2016 Visit Plan: URI - Pt advised to increase fluids, vitamin C. Discussed natural and expected course of this diagnosis and need to alert me if symptoms do not follow expected course, or if any worse. RX sent to patient's pharmacy.Bipolar- symptoms stable-no changes 05/27/2016 Appointment: Michelle Garcia WPtel: [address] [place], [place] [phone] (30 min) Complex 05/27/2016 Patient Education: Patient Medication Summary Completed 05/27/2016 Patient Education: Obesity Completed 05/27/2016 Visit Plan: Hypertension - well controll ed - continue with current medications, continue with no added salt diet. Pt has been encouraged to exercise daily.The pt has been advised to call the office if there are any acute concerns about change in blood pressure readings at home.Bipolar Mood disorder -symptoms improved with current medications-no changes-follow up in 1 month, sooner if needed 04/29/2016 Appointment: Michelle Garcia WPtel: [phone] [phone] (30 min) Complex 04/29/2016 Patient Education: Patient Medication Summary Completed 04/29/2016 Patient Education: Obesity Completed 04/29/2016 Patient Education: Hypertension Completed 04/29/2016 Visit Plan: Bipolar Mood disorder - symp toms improved with switch to seroquel- make appt for counseling-no change in medications-call me if symptoms ANY or new symptoms develop. Follow up in the office in 2 weeks, sooner if needed. Patient verbalized understanding of plan. 04/02/2016 Appointment: Michelle Garcia WPtel: [phone] [phone] (30 min) Complex 04/02/2016 Patient Education: Patient Medication Summary Completed 04/02/2016 Patient Education: Obesity Completed 04/02/2016 Visit Plan: Bipolar Mood disorder - it a ppears that the patient may be having worsening [...] change in blood pressure readings at home. 03/18/2016 [facility]ment: [phone] [phone] (30 min) Complex 03/18/2016 Patient Education: Patient Medication Summary Completed 03/18/2016 Patient Education: Obesity Completed 03/18/2016 Patient Education: Hypertension Completed 03/18/2016 Appointment: Injection 02/20/2016 Patient Education: Patient Medication Summary Completed 02/20/2016 Visit Plan: Pharyngitis-Discussed natura l and expected course of this diagnosis and need to alert me if symtpoms do not follow expected course, or if any worse. Recommended salt water gargles as needed for pain. Tylenol/motrin as needed for fever/discomfort. Allergies - chronic - recommended pt to use allergy medication as prescribed. Pt has been counseled as to the appropriate use of the medicati on. Pt to call if allergy symptoms are not controlled with the medication.If using nasal spray, instructions as follows: Nasal spray- use twice daily, one spray per nostril twice daily, after 30 minutes, rinse out nose with saline spray.. Use opposite hand per nostril to spray in the nasal steroid allergy spray.Kenalog injection today in the office 01/26/2016 Visit Plan: Pharyngitis-Discussed natura l and expected course of this diagnosis and need to alert me if symtpoms do not follow expected course, or if any worse. Recommended salt water gargles as needed for pain. Tylenol/motrin as needed for fever/discomfort. Allergies - chronic - recommended pt to use allergy medication as prescribed. Pt has been counseled as to the appropriate use of the medicati on. Pt to call if allergy symptoms are not controlled with the medication.If using nasal spray, instructions as follows: Nasal spray- use twice daily, one spray per nostril twice daily, after 30 minutes, rinse out nose with saline spray.. Use opposite hand per nostril to spray in the nasal steroid allergy spray.Kenalog injection today in the office 01/26/2016 Appointment: Michelle Garcia WPtel: [address] [place], [place] [phone] (30 min) [facility] 01/26/2016 Patient Education: Patient Medication Summary Completed 01/26/2016 Patient Education: Patient Medication Summary Completed 01/01/2016 Patient Education: Obesity Completed 01/01/2016 Visit Plan: Hypertension - well controll ed - continue with current medications, continue with no added salt diet. Pt has been encouraged to exercise daily.The pt has been advised to call the office if there are any acute concerns about change in blood pressure readings at home.Obesity - chronic issue with this patient. The pt has been counseled about diet changes, calorie restriction, and need to exercise. Pt will RTC in one month for weight check.First goal weight for TOPS is 190#Urinary frequency-check UA 12/25/2015 Visit Plan: Hypertension - well controll ed - continue with current medications, continue with no added salt diet. Pt has been encouraged to exercise daily.The pt has been advised to call the office if there are any acute concerns about change in blood pressure readings at home.Obesity - chronic issue with this patient. The pt has been counseled about diet changes, calorie restriction, and need to exercise. Pt will RTC in one month for weight check.First goal weight for TOPS is 190#Urinary frequency-check UA 12/25/2015 Patient Education: Patient Medication Summary Completed 12/25/2015 Patient Education: Obesity Completed 12/25/2015 Care Plan: BMI Above normal followup [facility] EDUC & TRAIN 1 PT Pending 12/25/2015 Visit Plan: Esophageal Reflux - the mine ent has been counseled against excessive intake of caffeine, spicy foods, peppermint, and cinnamon - all of which can exacerbate esophageal reflux.The patient is to take medications as prescribed and call the office if the symptoms are not improving.Hypertension - well controlled - continue with current medications, continue with no added salt diet. Pt has been encouraged to exercise daily.The pt has been advised to call the office if there are any acute concerns about change in blood pressure readings at home.Chronic Depression and anxiety - the pt has symptoms of chronic anxiety and depression that have been fairly well controlled since the last office visit. The pt has expected periods of exacerbation with abatement of the symptoms with change in situational exposure. No change in current medications. 12/08/2015 Appointment: Michelle Garcia WPtel: [address] [place], [place] [phone] (15 min) Moderate 12/08/2015 Patient Education: Patient Medication Summary Completed 12/08/2015 Visit Plan: Bipolar-symptoms controlled- check depakote level today Hypertension - well controlled - [...] 6 months based on previous levels of control.Allergies - chronic - recommended pt to use allergy medication as prescribed. Pt has been counseled as to the appropriate use of the medication. Pt to call if allergy symptoms are not controlled with the medication.If using nasal spray, instructions as follows: Nasal spray- use twice daily, one spray per nostril twice daily, after 30 m inutes, rinse out nose with saline spray.. Use opposite hand per nostril to spray in the nasal steroid allergy spray.Dysuria-UA negative-monitor symptoms 09/23/2015 Appointment: (30 min) Complex 09/23/2015 Patient Education: Patient Medication Summary Completed 09/23/2015 Appointment: Lab Draw 07/23/2015 Appointment: Lab Draw 07/07/2015 Patient Education: Patient Medication Summary Completed 07/07/2015 Patient Education: Patient Medication Summary Completed 06/24/2015 Visit Plan: Hypertension - well controll ed - continue with current medications, continue with no added salt diet. Pt has been encouraged to exercise daily.The pt has been advised to call the office if there are any acute concerns about change in blood pressure readings at home.Bipolar depression-symptoms stable- seeing Dr Valencia for outpatient treatment 06/19/2015 Appointment: (30 min) Complex 06/19/2015 Patient Education: Patient Medication Summary Completed 06/19/2015 Patient Education: Hypertension Completed 06/19/2015 Visit Plan: Hypertension - well controll ed - continue with current medications, continue with no added salt diet. Pt has been encouraged to exercise daily.The pt has been advised to call the office if there are any acute concerns about change in blood pressure readings at home.Chronic Depression and anxiety - the pt has symptoms of chronic anxiety and depression that have been fairly well controlled since the last office visit. The pt has expected periods of exacerbation with abatement of the symptoms with change in situational exposure. No change in current medications.Rash-resolved 05/19/2015 Appointment: (30 min) Complex 05/19/2015 Patient Education: Patient Medication Summary Completed 05/19/2015 Patient Education: Hypertension Completed 05/19/2015 Appointment: (15 min) Moderate 04/29/2015 Visit Plan: Rash-uncertain etiology-Dr Keiko del valle in to evaluate patient-plan to hold atorvastatin, use hydroxyzine as needed for itching. Instructed patient to call if symptoms do not improve, if any worse or new symptoms develop. Follow up in the office in 2 weeks, sooner if needed. Patient verbalized understanding of plan. 04/28/2015 Appointment: Michelle Garcia [facility]Ptel[phone] (15 min) Moderate 04/28/2015 Patient Education: Patient Medication Summary Completed 04/28/2015 Visit Plan: Hypertension - well controll ed - continue with current medications, continue with no added salt diet. Pt has been encouraged to exercise daily.The pt has been advised to call the office if there are any acute concerns about change in blood pressure readings at home.Bipolar depression-managed by Dr Valencia-doing well on current medications 03/18/2015 Appointment: (30 min) Complex 03/18/2015 Patient Education: Patient Medication Summary Completed 03/18/2015 Patient Education: Hypertension Completed 03/18/2015 Visit Plan: Seborrheic keratosis-not inf lamed today in the office-if becomes irritated or inflamed, will plan for removal. Patient verbalized understanding of plan. 02/27/2015 Appointment: (15 min) Moderate 02/27/2015 Patient Education: Patient Medication Summary Completed 02/27/2015 Visit Plan: Hypothyroidism - pt with chr onic hypothyroidism, continue with current medication, will monitor pt to signs or symptoms of lack of adequate supplementation. Pt is to continue with current dose of medication unless directed otherwise. Check labs at regular intervals wither q 3 months or q 6 months based on previous levels of control.Bipolar, depression-patients sees Dr Valencia-recent inpatient stay at [facility]-now on latuda and doing well-no changes at this time. Influenza vaccine today in the office 2014 Appointment: (30 min) Complex 02/13/2015 Patient Education: Patient Medication Summary Completed 02/13/2015 Visit Plan: Muscle strain/back pain- Bio freeze applied to shoulders and back muscles in office. [...] to clinic if symptoms persist or worsen. 11/18/2014 Appointment: (15 min) Moderate 11/18/2014 Patient Education: Patient Medication Summary Completed 11/18/2014 Visit Plan: Dog bite- Start antibiotic t michelle. RX sent to pt's pharmacy. Pt has been instructed to take probiotic while on antibiotic. Tetanus shot given today in office. Pt instructed to call or return to clinic if symptoms worsen. Verbalizes understanding. Dysuria- UA negative. Increase water intake. Return if symptoms worsen or persist. 10/23/2014 Visit Plan: Dog bite- Start antibiotic t michelle. RX sent to pt's pharmacy. Pt has been instructed to take probiotic while on antibiotic. Tetanus shot given today in office. Pt instructed to call or return to clinic if symptoms worsen. Verbalizes understanding. Dysuria- UA negative. Increase water intake. Return if symptoms worsen or persist. 10/23/2014 Appointment: (30 min) Complex 10/23/2014 Patient Education: Patient Medication Summary Completed 10/23/2014 Appointment: Lab Draw 10/08/2014 Patient Education: Patient Medication Summary Completed 10/08/2014 Visit Plan: Medicare Exam - today we dis cussed the patients past history, immunizations, preventative exams/evaluations [...] her DOPA paperwork for health care surrogate. 10/02/2014 Patient Education: Patient Medication Summary Completed 10/02/2014 Care Plan: ASSAY TEST FOR BLOOD FECAL LOINC : 2335-8 Ordered 10/02/2014 Appointment: Nurse Visit 09/25/2014 Patient Education: Patient Medication Summary Completed 09/25/2014 Patient Education: Hypertension Completed 09/25/2014 Visit Plan: Fomiqszpryx-udspnpwie-rwuhn labs-increase po fluids-monitor blood pressure and pulse-return Tuesday for blood pressure check Hypothyroidism - pt with chronic hypothyroidism, continue with current medication, will monitor pt to signs or symptoms of lack of adequate supplementation. Pt is to continue with current dose of medication unless directed otherwise. Check labs at regular intervals wither q 3 months or q 6 months based on previous levels of control.Dysuria-check UA today 09/23/2014 Appointment: Follow up 09/23/2014 Patient Education: Patient Medication Summary Completed 09/23/2014 Care Plan: COMPLETE CBC AUTOMATED LOINC : 69651-7 Ordered 09/23/2014 Care Plan: URINALYSIS NONAUTO W/O SCOPE LOINC : 15953-3 Ordered 09/23/2014 Visit Plan: URI - Pt advised to increase fluids, vitamin C. Discussed natural and expected course of this diagnosis and need to alert me if symptoms do not follow expected course, or if any worse. RX sent to patient's pharmacy.Allergies-kenalog injection today in the office. Edema - pt has been advised to elevate legs to prevent dependent edema, compression has been recommended to help to naturally decrease peripheral edema. Diuretic use has been discussed and pt has been instructed in appropriate use of such medication as necessary to further attempt to reduce peripheral edema. 07/08/2014 Patient Education: Patient Medication Summary Completed 07/08/2014 Appointment[facility] Jod[facility] Littlejohn [facility]el[facility] [phone] [facility] [place] Lab Draw 06/03/2014 Patient Education: Patient Medication Summary Completed 06/03/2014 Visit Plan: Hypothyroidism - pt with chr onic hypothyroidism, continue with current medication, will monitor pt to signs or symptoms of lack of adequate supplementation. Pt is to continue with current dose of medication unless directed otherwise. Check labs at regular intervals wither q 3 months or q 6 months based on previous levels of control.Bipolar Mood disorder - it appears that the [...] a copy of her labs to the psychiatrist.Hypertension - well controlled - continue with current medications, continue with no added salt diet. Pt has been encouraged to exercise daily.The pt has been advised to call the office if there are any acute concerns about change in blood pressure readings at home. 05/31/2014 Appointment: Jodie Littlejohn WPtel: [facility] [place] Follow up 05/31/2014 Patient Education: Patient Medication Summary Completed 05/31/2014 Patient Education: Hypertension Completed 05/31/2014 Appointment: Jodie Littlejohn WPtel: [facility] [place] Follow up 05/07/2014 Visit Plan: [facility] [place] twice daily x 7 days DRINK LOTS of water - at least 16 ounces with each dose of ibuprofen (motrin)you need to get a deep tissue massage.heat to neck and lower back tiger balm for your neck and back muscles. 04/18/2014 Appointment: Jodie Littlejohn WPtel: [facility] [place] Follow up 04/18/2014 Patient Education: Patient Medication Summary Completed 04/18/2014 Care Plan: ASSAY OF CK (CPK) Ordered 04/18/2014 Care Plan: ASSAY DIPROPYLACETIC ACID Ordered 04/18/2014 Care Plan: ASSAY OF MYOGLOBIN Ordered 04/18/2014 Care Plan: COMPLETE CBC AUTOMATED LOINC : 25393-3 Ordered 04/18/2014 Visit Plan: Back pain - recommended heat , tiger balm to upper back, stretching exercises, and hand out given to pt. Recommended weight loss, and better breast support to help decrease strain on upper shoulder/upper back muscles.Bipolar Mood disorder -pt relatively stable, continue with current regimen - needs labs before next appt, need to check depakote level.Anxiety - relatively stable.Scab - pt to use neosporin over the lesion, call if not healing. 03/05/2014 Appointment: Jodie Littlejohn WPtel: [address] [place], [place] [id number] [place] Follow up 03/05/2014 Patient Education: Patient Medication Summary Completed 03/05/2014 Visit Plan: Hypertension - well controll ed - continue with current medications, continue with no added salt diet. Pt has been encouraged to exercise daily.The pt has been advised to call the office if there are any acute concerns about change in blood pressure readings at home. 01/29/2014 Appointment: Jodie Littlejohn WPtel[facility] [phone] [facility] Follow up 01/29/2014 Patient Education: Patient Medication Summary Completed 01/29/2014 Patient Education: Hypertension Completed 01/29/2014 Patient Education: Patient Medication Summary Completed 11/12/2013 Appointment: Lab Draw 11/09/2013 Visit Plan: Hypertension - well controll ed - continue with current medications, continue with no added salt diet. Pt has been encouraged to exercise daily.The pt has been advised to call the office if there are any acute concerns about change in blood pressure readings at home.Edema - pt has been advised to elevate legs to prevent dependent edema, compression has been recommended to help to naturally decrease peripheral edema. Diuretic use has been discussed and pt has been instructed in appropriate use of such medication as necessary to further attempt to reduce peripheral edema.Pt to start on spironolactone - monitor edema, and call if symptoms uncontrolled.Bipolar mood disorder - change lexapro to bedtime dosing, monitor symptoms of depression and bipolar manic/paranoia symptoms and call if pt starts to have worsening of anxiety/paranoia. 2013 Appointment: Jodie Littlejohn WPtel[facility] [phone] [facility] Follow up 10/23/2013 Patient Education: Patient Medication Summary Completed 10/23/2013 Patient Education: Hypertension Completed 10/23/2013 Appointment: Jodie Ltitlejohn WPtel: [phone] [facility] [place] Follow up 10/16/2013 Visit Plan: Rash-culture today in the of fice-RX for diflucan and nystatin- triamcinolone cream to patients pharmacy and isntructed on use. We will call Tuesday with culture results-let us know if the rash is not better. Call if rash worsens, or does not resolve. Patient verbalized understanding of plan. 2013 Patient Education: Patient Medication Summary Completed 10/11/2013 Visit Plan: Edema - pt has been advised to elevate legs to prevent dependent edema, compression has been recommended to help to naturally decrease peripheral edema. Diuretic use has been discussed and pt has been instructed in appropriate use of such medication as necessary to further attempt to reduce peripheral edema.Pt to use spironolactone 25mg daily and monitor symptoms. 2013 Appointment: Jodie Littlejohn WPtel: [address] [place], [place] [phone] Follow up 09/17/2013 Patient Education: Patient Medication Summary Completed 09/17/2013 Visit Plan: Edema - pt has been advised to [...] the day for compression-rest and elevated leg. 08/27/2013 Appointment: Michelle Garcia WPtel: [address] [place], [place] [phone] Other 08/27/2013 Patient Education: Patient Medication Summary Completed 08/27/2013 Appointment: Jodie Littlejohn WPtel: [address] [place], [place] [phone] [facility] follow up 08/22/2013 Visit Plan: Bipolar Mood disorder - pt s tates that she feels better since her evaluation and management at the facility - pt states that she feels more stable, still having some concerns and worries about her and his "activities" but she feels more stable than prior to her hospitalization.Hypothyroidism - pt with chronic hypothyroidism, continue with current medication, will monitor pt to signs or symptoms of lack of adequate supplementation. Pt is to continue with current dose of medication unless directed otherwise. Check labs at regular intervals wither q 3 months or q 6 months based on previous levels of control. 08/20/2013 Appointment: Jodie Littlejohn WPtel: [facility] Other 08/20/2013 Patient Education: Patient Medication Summary Completed 08/20/2013 Appointment: Jodie Littlejohn WPtel: [facility] [place] Follow up 08/07/2013 Visit Plan: Bipolar Mood Disorder with M anic and Depression symptoms - pt reports that she has not been sleeping well, but since change in her medications she feels as if she is doing better.She reports that she will be seeing the father separate from her so that she can get counseling.She reports that she will not be seeing the physician in [place] any more - had actually stopped seeing the physician in [place] as of 2-3 weeks ago.She will be seeing Dr. Cabrera in [place]. 07/10/2013 Appointment: [place] [phone] [facility] Follow up 07/10/2013 Patient Education: Patient Medication Summary Completed 07/10/2013 Visit Plan: DM-diabetes and diet educati on discussed in detal with patient today in the office-handouts also provided-patient verbalized understanding. Allergies - chronic - recommended pt to use allergy medication as prescribed. Pt has been counseled as the the appropriate use of the medication. Pt to call if allergy symptoms are not controlled with the medication.If using nasal spray, instructions as follows: Nasal spray- use twice daily, one spray per nostril twice daily, after 30 minutes, rinse out nose with saline spray.. Use opposite hand per nostril to spray in the nasal steroid allergy spray.Kenalog injection today in the office. 03/20/2013 Appointment: Michelle [facility]Ptel[facility] [address] [phone] Other 03/20/2013 Patient Education: Patient Medication Summary Completed 03/20/2013 Patient Education: .Amazing charts Diabe tic meal planning guide Completed 03/20/2013 Visit Plan: Hypothyroidism - pt with chr onic hypothyroidism, continue with current medication, will monitor [...] in situational exposure. No change in current medications.Elevated fasting glucose - monitor blood glucose levels, check hgba1c. 03/07/2013 Appointment: Jodie Littlejohn WPtel: [facility] Follow up 03/07/2013 Patient Education: Patient Medication Summary Completed 03/07/2013 Appointment: Michelle Garcia WPtel: [phone] [phone] [place] Lab Draw 03/01/2013 Patient Education: Patient Medication Summary Completed 03/01/2013 Visit Plan: Hypothyroidism - pt with chr onic hypothyroidism, continue with current medication, will monitor [...] situational exposure. No change in current medications. 01/22/2013 Appointment: Jodie Littlejohn WPtel: [address] [place], [place] [phone] Follow up 01/22/2013 Patient Education: Patient Medication Summary Completed 01/22/2013 Patient Education: Patient Medication Summary Completed 09/04/2012 Visit Plan: URI - Pt advised to increase fluids, vitamin C. Discussed natural and expected course of this diagnosis and need to alert me if symtpoms do not follow expected course, or if any worse. RX sent to patient's pharmacy.Rocephin injection today in the office. Allergies - chronic - recommended pt to use allergy medication as prescribed. Pt has been counseled as the the appropriate use of the medication. Pt to call if allergy symptoms are not controlled with the medication.Kenalog injection today in the office. 08/22/2012 Appointment: Michelle Garcia WPtel: [phone] Sick 08/22/2012 Patient Education: Patient Medication Summary Completed 08/22/2012 Visit Plan: Hypertension - well controll ed - continue with current medications, continue with [...] to assure normal liver response to medications. 08/14/2012 Appointment: Jodie Littlejohn WPtel: [phone] [place] [phone] Follow up 08/14/2012 Patient Education: Patient Medication Summary Completed 08/14/2012 Patient Education: Hypertension Completed 08/14/2012 Visit Plan: URI - Pt advised to increase fluids, vitamin C. Discussed natural and expected course of this diagnosis and need to alert me if symtpoms do not follow expected course, or if any worse. RX sent to patient's pharmacy.Rocephin injection today in the office. Allergies - chronic - recommended pt to use allergy medication as prescribed. Pt has been counseled as the the appropriate use of the medication. Pt to call if allergy symptoms are not controlled with the medication.Kenalog injection today in the office. 05/22/2012 Patient Education: Patient Medication Summary Completed 05/22/2012 Visit Plan: Hypertension - well controll ed - continue with current medications, continue with no added salt diet. Pt has been encouraged to exercise daily.The pt has been advised to call the office if there are any acute concerns about change in blood pressure readings at home. 04/17/2012 Appointment: Jodie Littlejohn WPtel: [phone] [facility] Other 04/17/2012 Patient Education: Hypertension Completed 04/17/2012 Patient Education: Patient Medication Summary Completed 04/17/2012 Appointment: Jodie Littlejohn WPtel[facility] [phone] [facility] [place] Injection 02/23/2012 Patient Education: Patient Medication Summary Completed 02/23/2012 Visit Plan: Hypothyroidism - pt with ch ronic hypothyroidism, continue with current medication, will monitor [...] been fairly well controlled since the last offi ce visit. The pt has expected periods of exacerbation with abatement of the symptoms with change in situational exposure. No change in current medications.Per pt report, she was told that her vitamin D level was low - she was informed that her vitamin d level will be reviewed and if needed a script called out to [facility]. 12/01/2011 Appointment: Jodie Littlejohn WPtel[facility] [phone] [facility] [place] 12/01/2011 Patient Education: Patient Medication Summary Completed 12/01/2011 Visit Plan: Hypothyroidism - pt with ch ronic hypothyroidism, continue with current medication, will monitor pt to signs or symptoms of lack of adequate supplementation. Pt is to continue with current dose of medication unless directed otherwise. Check labs at regular intervals wither q 3 months or q 6 months based on previous levels of control.brand name thyroid medication 75 mcg daily Hyperlipidemia [...] tuesday, tuesday, fridays.. Call if the aches return.Motrin twice daily for a week.Osteoarthritis - aspercreme to the joint Chronic Depression and anxiety - the pt has symptoms of chronic anxiety and depression that have been fairly well controlled since the last office visit. The pt has expected periods of exacerbation with abatement of the symptoms with change in situational exposure. No change in current medications. 08/11/2011 Appointment: Jodie Littlejohn WPtel: [address] [place] [address] Other 08/11/2011 Appointment: Jodie Littlejohn WPtel: [address] [place], [place] [phone] Other 08/11/2011 Patient Education: Patient Medication Summary Completed 08/11/2011 Visit Plan: Mastodynia improved - contin ue with no underwire bras and call if symptoms return. Chronic Depression and anxiety - the pt has symptoms of chronic anxiety and depression that have been fairly well controlled since the last office visit. The pt has expected periods of exacerbation with abatement of the symptoms with change in situational exposure. No change in current medications.Abrasion on finger - silvadene prn.Flatulence- start on cultrelle for the bowels, stop using in a week restart if the symptoms return. 2011 Appointment: Jodie Littlejohn WPtel: [address] [place], [place] [phone] Other 06/01/2011 Patient Education: Patient Medication Summary Completed 06/01/2011 Visit Plan: Breast pain - ordered mammog leni and ultrasound.STOP WEARING UNDERWIRE BRAS.Depression - worsening - recommended pt to talk to her psychiatrist AMRITA. If she cannot get ahold of the psychiatrist this week, call the office here and we will probably have her restart her lexapro at 5mg daily.Hyperlipidemia - pt has been counseled about appropriate [...] supplementation. Pt is to continue with current do se of medication unless directed otherwise. Check labs at regular intervals wither q 3 months or q 6 months based on previous levels of control. 2011 Appointment: Jodie Littlejohn WPtel: [phone] [facility] [place] Other 05/18/2011 Patient Education: Patient Medication Summary Completed 05/18/2011 Appointment: Jodie Littlejohn WPtel: [phone] [facility] [place] Other 03/09/2011 Appointment: Jodie Littlejohn WPtel: [phone] [facility] [place] Injection 01/28/2011 Referral: Angie Adorno Referral Relationship Instructions Comment . Rash-culture today in the office-RX [...] . Dog bite- Start antibiotic today. RX sent to pt's pharmacy. Pt has been instructed to take probiotic while on antibiotic. Tetanus shot given today in office. Pt instructed to call or return to clinic if symptoms worsen. Verbalizes understanding. Dysuria- UA negative. Increase water intake. Return if symptoms worsen or persist. Tetanus shot given t michelle in office. Take antiboitic as prescribed. Take probiotic while taking antibiotic. . Dog bite- Start antibiotic today. RX sent to pt's pharmacy. 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 Fcwesnhwp-aeifqhq-akgknbhc daily anti histamine . Hypertension - wel [...] if the symptoms return. . Hypothyroidism - pt with chronic hypothyroidism, continue [...] TOPS is 190# Urinary frequency-check UA . Hypertension - wel l controlled - [...] spray. Kenalog injection today in the office . Pharyngitis-Discus sed natural and expected course [...] x 2 wee ks [place] [facility] [place] ibuprofen 400mg twice daily x 7 days DRINK LOTS of water - at least 16 ounces with each dose of ibuprofen (motrin) you need to get a deep tissue massage. heat to neck and lower back tiger balm for your neck and back muscles. . hold lipitor x 2 weeks check labs [place] [facility] [place] ibuprofen 400mg twice daily x 7 [...] Call if symptoms do not show improvement. FLU SWAB . Sinusitis - Pt has [...] YOUR BLOOD PRESSURE AND YOUR MACHINE . Rsyfvbiqwvs-ldjjavimd-oatec labs-incre ase po fluids-monitor blood pressure and [...] will not be seeing the physician in [place] any more - had actually stopped seeing the physician in [place] as of 2-3 weeks ago. She will be seeing Dr. Cabrera in [place]. . UTI - pt with posi tive [...] depression-patients sees Dr Valencia-recent inpatient stay at [facility]-now on latuda and doing well-no [...]
--- OUTSIDE RECORDS SUMMARY | 2019-11-07 17:17 | XMS REPORT | CCD ---
Author Author Cesar Littlejohn Organization Jodie Littlejohn MD, [facility] Address [facility] [place] [address] Phone Care Team Providers Care Senior Clinical Study Manager Name Role Phone PP Unavailable CCM Unavailable Summary Purpose Interface Exchange Insurance Providers Payer name Policy type / Coverage type Covered alliance party ID Effective Begin Date Effective End Date WPS Medicare Part B Medicare Part B [id number] 2013 Unknown [facility] Part B [id number] 2013 Un known Family history Grandfather Diagnosis [...] Employment Unknown Jessica ntly employed retired from [employer], 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 [employer] 10/23/2013 Number of children Unknown 2 sons - 1 son in an accident in [place]505/13/2011 Marital status Unknown M arried 04/06/[address]: 865419609 Never smoker 04/06/[address]: 032875218 Never drinks alcohol 04/06/2011 Has the patient [...] 311 ICD-10: F32.9 Active 06/24/2015 Unknown Other terminologist (cur rent) drug therapy ICD-9: V58.69 ICD-10: [...] pain ICD-9: 719.47 Active 08/27/2013 Unknown 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 ICD-9: V65.3 Active 03/20/2013 Unknown IMPAIRED FASTING [...] ICD-9: 311 ICD-10: F32.9 06/24/2015 Active Other terminologist (cur rent) drug therapy ICD-9: V58.69 ICD-10: [...] ankle pain ICD-9: 719.47 08/27/2013 Active 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 ICD-9: V65.3 03/20/2013 Active IMPAIRED FASTING GLU [...] Date Stop Date Sta tus Fill Instructions Keflex 500 mg capsule RxNorm: 703342 1 Capsule(s) PO TID 11/10/2016 11/16/2016 Active nystatin 100,000 uni t/mL oral suspension RxNorm: 745849 5 Milliliter(s) PO sw neli and swallow QID 08/17/2016 08/16/2016 Inactive nystatin 100,000 uni t/mL oral suspension RxNorm: 542987 5 Milliliter(s) PO sw neli and swallow QID 08/17/2016 08/26/2016 Inactive Augmentin 875 mg-125 mg tablet RxNorm: 457222 1 Tablet(s) PO BID 08/09/2016 08/15/2016 Inactive Seroquel 100 mg tablet RxNorm: 228445 1/2 Tablet(s) PO QHS 07/20/2016 No Stop Date Active Depakote 125 mg tabl et,delayed release RxNorm: 2206244 2 Capsule(s) PO QAM 1 cap in the evening with meal 07/20/2016 10/17/2016 Inactive levothyroxine 88 mcg tablet RxNorm: 296902 TAKE ONE TABLET BY MO [facility] DAILY 06/01/2016 04/26/2017 Ac tive Synthroid 88 mcg tablet RxNorm: 571926 1 Tablet(s) PO daily 05/31/2016 09/27/2016 Inactive Fill generic if insurance will not cover Synthroid 88 mcg tablet RxNorm: 866823 1 Tablet(s) PO daily 05/31/2016 05/30/2016 Inactive Fill generic if insurance will not cover Flonase Allergy Reli ef 50 mcg/actuation nasal spray,suspension RxNorm: 7515907 2 [place] NASAL daily 05/27/2016 06/09/2016 Inactive Zithromax Z-Juancarlos 250 mg tablet RxNorm: 980473 1 Tablet(s) PO UD 05/27/2016 05/31/2016 Inactive zpack omeprazole 20 mg cap jacquelin,delayed release RxNorm: 957021 TAKE ONE CAPSULE BY M OUTH EVERY DAY 04/12/2016 01/06/2017 Active Effexor XR 75 mg cap jacquelin,extended release RxNorm: 828145 1 Capsule(s) PO daily TAKE ONE CAPSULE BY MOUTH DAILY 03/18/2016 12/12/2016 Active Effexor XR 37.5 mg c apsule,extended release RxNorm: 709558 TAKE ONE CAPSULE BY M OUTH DAILY 02/23/2016 03/17/2016 Inactive promethazine 6.25 mg -codeine 10 mg/5 mL syrup RxNorm: 514625 5-10 Milliliter(s) PO Q6 PRN 01/26/2016 No Stop Date Active Kenalog 40 mg/mL ericka pension for injection RxNorm: 4195818 Milliliter(s) Inj 01/26/2016 01/26/2016 In active Zithromax Z-Juancarlos 250 mg tablet RxNorm: 599077 1 Tablet(s) PO daily 01/26/2016 01/30/2016 Inactive zpack Effexor XR 37.5 mg c apsule,extended release RxNorm: 512774 1 Capsule(s) PO daily 11/21/2015 11/20/2015 In active Effexor XR 37.5 mg c apsule,extended release RxNorm: 175819 1 Capsule(s) PO daily 11/21/2015 02/18/2016 In active Latuda 20 mg tablet RxNorm: 1999871 1 Tablet(s) PO daily 09/23/2015 04/01/2016 Inactive Pristiq 25 mg tablet ,extended release RxNorm: 5497358 1 Tablet(s) PO QAM 09/23/2015 11/20/2015 In active Cipro 500 mg tablet RxNorm: 369018 1 Tablet(s) PO BID 07/23/2015 07/29/2015 Inactive probiotic bid x7 days Levaquin 500 mg tablet RxNorm: 593332 1 Tablet(s) PO daily 07/07/2015 07/06/2015 Inactive Levaquin 500 mg tablet RxNorm: 777784 1 Tablet(s) PO daily 07/07/2015 07/13/2015 Inactive Depakote 125 mg tabl et,delayed release RxNorm: 9734879 2 Tablet(s) PO QPM 05/14/2015 08/11/2015 In active levothyroxine 88 mcg tablet RxNorm: 519878 1 Tablet(s) PO daily 05/05/2015 05/30/2016 Inactive hydroxyzine HCl 25 m g tablet RxNorm: 498182 1 Tablet(s) PO TID PRN 04/28/2015 No Stop Date Active PRN ITCHING escitalopram 20 mg t ablet RxNorm: 173311 1 Tablet(s) PO daily 03/18/2015 03/18/2015 Inactive [SAVINGS FOR UNINSURED PATIENTS -- BIN:0 [id number], PCN: ASPROD1, Group: [id number], ID# [id number], Process claim through [employer], for questions: . THIS IS NOT INSURANCE.] omeprazole 20 mg cap jacquelin,delayed release RxNorm: 604675 TAKE ONE CAPSULE BY M OUTH EVERY DAY 03/11/2015 01/04/2016 Inactive Diflucan 150 mg tablet RxNorm: 622007 1 Tablet(s) PO daily 11/18/2014 11/27/2014 Inactive Biofreeze (menthol) 4 % topical gel RxNorm: 3426703 1 Application TOP BI D 11/18/2014 11/27/2014 In active tetanus and diphther ia tox (PF) 5 Lf unit-2 Lf unit/0.5 mL IM susp RxNorm: 934429 1 injection IM 10/23/2014 10/23/2014 Inactive Augmentin 875 mg-125 mg tablet RxNorm: 350532 1 Tablet(s) PO BID 10/23/2014 11/01/2014 Inactive Kenalog 40 mg/mL ericka pension for injection RxNorm: 8740473 Milliliter(s) Inj 07/08/2014 07/08/2014 In active Zithromax Z-Juancarlos 250 mg tablet RxNorm: 126520 1 Tablet(s) PO daily 07/08/2014 07/12/2014 Inactive zpack escitalopram 20 mg t ablet RxNorm: 407170 1 Tablet(s) PO daily 07/01/2014 01/26/2015 Inactive [SAVINGS FOR UNINSURED PATIENTS -- BIN:0 13578, PCN: ASPROD1, Group: [id number], ID# [id number], Process claim through [employer], for questions: . THIS IS NOT INSURANCE.] escitalopram 20 mg t ablet RxNorm: 230997 TAKE ONE TABLET BY [facility] ONCE A DAY 07/01/2014 12/27/2014 In active Cipro 500 mg tablet RxNorm: 979121 1 Tablet(s) PO BID 06/07/2014 06/13/2014 Inactive probiotic bid x7 days [SAVINGS FOR UNINSURED PATIENTS -- BIN:949261, PCN: ASPROD1, Group: [id number], ID# [id number], Process claim through [employer], for questions: . THIS IS NOT INSURANCE.] Cipro 500 mg tablet RxNorm: 590043 1 Tablet(s) PO BID 06/07/2014 06/06/2014 Inactive probiotic bid x7 days Diflucan 150 mg tablet RxNorm: 538612 1 Tablet(s) PO daily 05/31/2014 05/30/2014 Inactive Diflucan 150 mg tablet RxNorm: 023851 1 Tablet(s) PO daily 05/31/2014 06/04/2014 Inactive [SAVINGS FOR UNINSURED PATIENTS -- BIN:0 59490, PCN: ASPROD1, Group: [id number], ID# [id number], Process claim through [employer], for questions: . THIS IS NOT INSURANCE.] Synthroid 75 mcg tablet RxNorm: 258722 Tablet(s) PO TAKE ONE TABLET BY MOUTH 04/25/2014 05/30/2014 Inactive PLEASE DO NOT SUBSTITUTE levothyroxine 88 mcg tablet RxNorm: 948562 1 Tablet(s) PO daily TAKE ONE TABLET BY MOUTH EVERY DAY 04/24/2014 04/24/2014 Inactive ketorolac 60 mg/2 mL intramuscular solution RxNorm: 437904 Milliliter(s) IM 04/18/2014 04/18/2014 In active nystatin-triamcinolo ne 100,000 unit/g-0.1 % topical cream RxNorm: 4418751 APPLY TOPICALLY TWICE A DAY 04/14/2014 05/11/2014 Inactive nystatin-triamcinolo ne 100,000 unit/g-0.1 % topical cream RxNorm: 6216261 APPLY TOPICALLY TWICE A DAY 04/14/2014 05/11/2014 Inactive Vitamin D3 5,000 uni t tablet RxNorm: 358578 ONE BY MOUTH EVERY DAY 04/08/2014 04/02/2015 Inactive lorazepam 0.5 mg tablet RxNorm: 906046 1 Tablet(s) PO QHS 03/05/2014 No Stop Date Active one q 8 hr prn, may take an extra dose at bedtime if nec omeprazole 20 mg cap jacquelin,delayed release RxNorm: 684326 TAKE ONE CAPSULE BY M OUTH EVERY DAY 03/04/2014 01/27/2015 Inactive spironolactone 25 mg tablet RxNorm: 044656 1 Tablet(s) PO TIW 10/23/2013 2016 Inactive Zyprexa 5 mg tablet RxNorm: 410507 1/2 Tablet(s) PO QHS 10/23/2013 03/04/2014 Inactive escitalopram 20 mg t ablet RxNorm: 483910 1 Tablet(s) PO daily 10/23/2013 05/20/2014 Inactive Depakote 125 mg tabl et,delayed release RxNorm: 2758542 2 Tablet(s) PO QPM 10/23/2013 04/20/2014 In active Diflucan 150 mg tablet RxNorm: 189408 1 Tablet(s) PO daily 10/11/2013 10/17/2013 Inactive nystatin-triamcinolo ne 100,000 unit/g-0.1 % topical cream RxNorm: 9064988 1 Application TOP BID 10/11/2013 10/24/2013 Inactive spironolactone 25 mg tablet RxNorm: 615390 1 Tablet(s) PO daily 09/17/2013 10/22/2013 Inactive Depakote 125 mg tabl et,delayed release RxNorm: 6116097 2 Tablet(s) PO TID 08/20/2013 10/22/[address] valencia increased escitalopram 20 mg t ablet RxNorm: 664094 1 Tablet(s) PO daily 07/10/2013 10/22/2013 Inactive Synthroid 75 mcg tablet RxNorm: 078190 Tablet(s) PO TAKE ONE TABLET BY MOUTH 04/17/2013 04/23/2014 Inactive Vitamin D3 5,000 uni t tablet RxNorm: 652495 1 Tablet(s) PO daily 03/28/2013 04/07/2014 Inactive Kenalog 40 mg/mL ericka pension for injection RxNorm: 6094305 Milliliter(s) Inj 03/20/2013 03/20/2013 In active omeprazole 20 mg cap jacquelin,delayed release RxNorm: 573095 Capsule(s) PO TAKE ON E CAPSULE BY MOUTH EVERY DAY 01/30/2013 08/19/2013 Inactive lorazepam 0.5 mg tablet RxNorm: 076518 1 Tablet(s) PO BID 01/22/2013 03/04/2014 Inactive one q 8 hr prn, may take an extra dose at bedtime if nec risperidone 0.5 mg t ablet RxNorm: 092972 1 Tablet(s) PO QHS 01/22/2013 08/19/2013 Inactive Silvadene 1 % Topica l Cream RxNorm: 202900 Cream TOP APPLY ON SK IN NEEDED 10/27/2012 01/21/2013 In active Cipro 500 mg tablet RxNorm: 049499 1 Tablet(s) PO BID 09/04/2012 09/03/2012 Inactive Cipro 500 mg tablet RxNorm: 823738 1 Tablet(s) PO BID 09/04/2012 09/10/2012 Inactive Rocephin 500 mg Solu tion for Injection RxNorm: 649168 1 Inj 08/22/2012 08/22/2012 Inactive Kenalog 40 mg/mL Ericka p for Injection RxNorm: 8341280 1 Milliliter(s) Inj 08/22/2012 08/22/2012 In active Rocephin 500 mg Solu tion for Injection RxNorm: 508221 1.5 Milliliter(s) Inj 05/22/2012 01/22/2013 In active Kenalog 40 mg/mL Ericka p for Injection RxNorm: 9159113 1 Milliliter(s) Inj 05/22/2012 05/22/2012 In active Synthroid 75 mcg tablet RxNorm: 982966 Tablet(s) PO 04/10/2012 04/16/2013 Inactive TAKE ONE TABLET BY MOUTH EVERY DAY name brand only Synthroid 75 mcg tablet RxNorm: 277407 Tablet(s) PO 04/09/2012 04/09/2012 Inactive TAKE ONE TABLET BY MOUTH EVERY DAY Vitamin D3 5,000 uni t tablet RxNorm: 041677 1 Tablet(s) PO daily 02/14/2012 03/09/2013 Inactive Vitamin D3 5,000 uni t tablet RxNorm: 745005 1 Tablet(s) PO daily 02/14/2012 02/13/2012 Inactive omeprazole 20 mg cap jacquelin,delayed release RxNorm: 651149 1 Capsule(s) PO daily 01/24/2012 01/29/2013 In active Vitamin D2 50,000 un it capsule RxNorm: 164539 1 Capsule(s) PO QW on e weekly x 3 months 12/07/2011 02/13/2012 Inactive one weekly x 3 months then 5000 units da natalie thereafter Synthroid 75 mcg tablet RxNorm: 539604 1 Tablet(s) PO daily 09/28/2011 03/25/2012 Inactive TAKE ONE TABLET BY MOUTH EVERY DAY ON AN EMPTY STOMACH omeprazole 20 mg cap jacquelin,delayed release RxNorm: 290608 1 Capsule(s) PO daily 07/20/2011 01/15/2012 In active Synthroid 75 mcg Tab RxNorm: 802665 Tablet(s) PO 2011 09/27/2011 Inactive TAKE ONE TABLET BY MOUTH EVERY DAY ON AN EMPTY STOMACH lorazepam 0.5 mg tablet RxNorm: 743064 1 Tablet(s) PO QDAY PRN 07/13/2011 01/21/2013 Inactive one q 8 hr prn, may take an extra dose a t bedtime if nec Synthroid 75 mcg Tab RxNorm: 582383 1 Tablet(s) PO daily 06/21/2011 07/18/2011 Inactive Silvadene 1 % Topica l Cream RxNorm: 137516 1 Application TOP PRN 06/01/2011 10/26/2012 Inactive dispense a small tube Depakote 125 mg tabl et,delayed release RxNorm: 5812430 3 Tablet(s) PO daily 06/01/2011 08/19/2013 In active lorazepam 0.5 mg Tab RxNorm: 911924 1 Tablet(s) PO PRN 06/01/2011 07/12/2011 Inactive one q 8 hr prn, may take an extra dose at bedtime if nec lorazepam 0.5 mg Tab RxNorm: 977997 Tablet(s) PO 04/20/2011 05/31/2011 Inactive one q 8 hr prn, may take an extra dose at bedtime if nec Influenza Virus Vacc ine 0.5 mL RxNorm: IM No Start Nathan e Active aspirin 81 mg Cap, D elayed Release RxNorm: 255749 1 Capsule(s) PO daily No Start Date Active omeprazole 20 mg cap jacquelin,delayed release RxNorm: 649703 1 Capsule(s) PO QHS No Start Date Active Lipitor 40 mg Tab RxNorm: 334189 1 Tablet(s) PO daily No Start Date Active Lumigan 0.01 % Eye D rops RxNorm: 6356616 Drop(s) OPH No Start Date Active Remeron 15 mg tablet RxNorm: 276815 1 Tablet(s) PO QHS No Start Date Active Lexapro 10 mg Tab RxNorm: 403650 1/2 Tablet(s) PO daily No Start Date 05/31/2011 Inactive pantoprazole 40 mg t ablet,delayed release RxNorm: 956074 1 Tablet(s) PO daily No Start Date 05/30/2014 Inactive Seroquel 100 mg tablet RxNorm: 697115 1 Tablet(s) PO QHS No Start Date 2016 Inactive Latuda 40 mg tablet RxNorm: 0864685 1 Tablet(s) PO daily No Start Date 09/22/2015 Inactive trifluoperazine 5 mg Tab RxNorm: 102061 1 Tablet(s) PO daily No Start Date 05/17/2011 Inactive Zithromax Z-Juancarlos 250 mg tablet RxNorm: 695423 Tablet(s) PO UD No Start Date 01/21/2013 Inactive trifluoperazine 5 mg Tab RxNorm: 787121 1 Tablet(s) PO QHS violette [place] No Start Date 08/13/2012 Inactive timolol 0.5 % Eye Drops RxNorm: 635908 1 Drop(s) OPH daily No Start Date 05/31/2011 Inactive each eye Lasix 20 mg Tab RxNorm: 728915 1/2 Tablet(s) PO QDAY PRN No Start Date 05/31/2011 Inactive lorazepam 0.5 mg Tab RxNorm: 328238 Tablet(s) PO No Start Date 04/19/2011 Inactive one q 8 hr prn, may take an extra dose at bedtime if nec Lexapro 5 mg tablet RxNorm: 874764 1 Tablet(s) PO daily No Start Date 07/09/2013 Inactive risperidone 0.5 mg t ablet RxNorm: 513845 1 Tablet(s) PO QHS No Start Date 01/21/2013 Inactive Lexapro 10 mg Tab RxNorm: 686072 1 Tablet(s) PO daily No Start Date 05/17/2011 Inactive Pristiq 50 mg tablet ,extended release RxNorm: 224937 1/2 Tablet(s) PO QAM No Start Date 09/22/2015 Inactive Ditropan XL 5 mg 24 hr Tab RxNorm: 261295 1 Tablet(s) PO daily No Start Date 01/28/2014 Inactive Vesicare 5 mg tablet RxNorm: 983641 1 Tablet(s) PO daily No Start Date 01/28/2014 Inactive oxcarbazepine 150 mg Tab RxNorm: 453876 1 Tablet(s) PO QHS No Start Date 08/10/2011 Inactive levothyroxine 88 mcg tablet RxNorm: 218948 oral No S tart Date 05/04/2015 Inactive Depakote 125 mg Tab RxNorm: 1591175 1 Tablet(s) PO daily No Start Date 05/31/2011 Inactive Zyprexa 5 mg tablet RxNorm: 987494 1 q am 2 at hs Tablet(s) PO No Start Date 10/22/2013 Inactive Calcium 500 + D (D3) 500 mg-125 unit Tab RxNorm: 068945 1 Tablet(s) PO BID No Start Date 05/31/2011 Inactive KCL 10 meq RxNorm: 1 PO daily No Start Date 05/31/2011 Inactive Stelazine 1 mg tablet RxNorm: 597476 1 Tablet(s) PO QAM No Start Date 02/12/2015 Inactive Mary 180 mg Tab RxNorm: 298543 1 Tablet(s) PO daily No Start Date 05/31/2011 Inactive Centrum Silver Ultra Women's Tab RxNorm: 1 Tablet(s) PO BID No Start Date 01/21/2013 Inactive Vagifem 10 mcg Vagin al Tab RxNorm: 461126 Tablet(s) VAG No Start Date 01/21/2013 Inactive 2-3x per week per dr kumar omeprazole 20 mg Cap , Delayed Release RxNorm: 390964 1 Capsule(s) PO daily No Start Date 2011 Inactive Vitamin D2 50,000 un it capsule RxNorm: 459791 1 Capsule(s) PO QW on e weekly x 3 months No Start Date 12/06/2011 Inactive one weekly x 3 months levothyroxine 75 mcg Cap RxNorm: 078027 1 Capsule(s) PO daily No Start Date 01/21/2013 Inactive Medication Administered Medication Codes Instruc tions Start Date Status Kenalog 40 mg/mL suspension for injection RxNorm: 7011190 Milliliter 01/26/2016 No longer Active tetanus and diphtheria tox (PF) 5 Lf uni t-2 Lf unit/0.5 mL IM susp RxNorm: 134835 1injection 10/23/2014 No longer Active Kenalog 40 mg/mL suspension for injection RxNorm: 3552376 Milliliter 07/08/2014 No longer Active ketorolac 60 mg/2 mL intramuscular solution RxNorm: 730155 Milliliter 04/18/2014 No longer Active Kenalog 40 mg/mL suspension for injection RxNorm: 8639092 Milliliter 03/20/2013 No longer Active Rocephin 500 mg Solution for Injection RxNorm: 272954 1 08/22/2012 No longer A ctive Kenalog 40 mg/mL Susp for Injection RxNorm: 5657621 1Milliliter 08/22/2012 N o longer Active Kenalog 40 mg/mL Susp for Injection RxNorm: 7752545 1Milliliter 05/22/2012 N o longer Active Immunizations [...] unspecified ICD-10: E03.9 ICD-9: 244.9 09/23/2015 Other terminologist (current) drug therapy ICD-10: Z79.899 ICD-9: V58.69 [...] IMPAIRED FASTING GLUCOSE ICD-9: 790.21 03/20/2013 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 ICD-9: V65.3 03/20/2013 ALLERGIC RHINITIS ICD-9: 477.9 [...] Pt states she had a very difficult [place] - Pt saw her psychiatrist 04/19/11 breast complaint 05/18/2011 Pt states she had a very difficult [place] - Pt saw her psychiatrist 04/19/11 Results Observation Observation Code Item Item Code Result Date Culture Urine [id number] URI NE CULTURE SEE NOTES 11/15/2016 Culture Urine [id number] Con tinued Results 11/15/2016 Urine Culture Ucult Comp lete Growth of aerobe sent to ref lab 11/11/2016 Urine Culture Ucult Prel iminary NO Growth Day 1 09/11 Urine Culture Ucult Comp lete NO Growth Day 2 09/11 C A/B FLU [id number] Influe nza A Scr Negative 08/09/2016 C A/B FLU [id number] Influe nza B Scr Negative 08/09/2016 C RAP A SC [id number] Strep A Negative 01/26/2016 Lipid Ord30 CHOL 189 mg/dL 01/01/2016 Lipid Ord30 HDL 46.0 mg/dl 01/01/2016 Lipid Ord30 TRIG 111 mg/dL 01/01/2016 Lipid Ord30 LDL 121 mg/dL 01/01/2016 Lipid Ord30 C/HDL 4.1 Ratio 01/01/2016 Urine Culture Ucult Prel iminary NO Growth Day 1 12/26 Urine Culture Ucult Comp lete NO Growth Day 2 12/26 Valproic Acid Urm849 BHARATH PROIC 30.0 ug/ml 09/23/2015 Cbc With [...] 27.9 pg 09/23/2015 Cbc With Differential Ord2 [place]% 9.7 % 09/23/2015 Cbc With Differential Ord2 [...] 2.92 K/ul 09/23/2015 Cbc With Differential Ord2 [place] ABS# 0.8 K/ul 09/23/2015 Cbc With Differential Ord2 Eos ABS# 0.2 K/ul 09/23/2015 Cbc With Differential Ord2 Baso ABS# 0.0 K/ul 09/23/2015 Cbc With Differential Ord2 New Analyzer Notice Please note new ref ranges s tarting 05-28-2015 due to implemntation of new five part differential hematolgy analyzer. 09/23/2015 Comp Metabolic Wrr209 NA 138 mEq/L 09/23/2015 Comp Metabolic Hsp704 K 4.0 mEq/L 09/23/2015 Comp Metabolic Btp594 CL 105 mEq/L 09/23/2015 Comp Metabolic Wwe823 CO2 26.0 mEq/L 09/23/2015 Comp Metabolic Kzg392 AN ION GAP 11 09/23/2015 Comp Metabolic Xym192 GL UCOSE 87 mg/dL 09/23/2015 Comp Metabolic Flh089 Cr eat 0.6 mg/dL 09/23/2015 Comp Metabolic Wll047 eG FR 95 ml/min/1.73m2 09/22 Comp Metabolic Afb876 BUN 10 mg/dL 09/23/2015 Comp Metabolic Dur080 B/ C Ratio 15.6 Ratio 09/23/2015 Comp Metabolic Pxz265 CA LCIUM 8.6 mg/dL 09/23/2015 Comp Metabolic Qxc569 AL K PHOS 104 U/L 09/23/2015 Comp Metabolic Vwy583 T(SGOT) 17 U/L 09/23/2015 Comp Metabolic Wml215 AL T(SGPT) 14 U/L 09/23/2015 Comp Metabolic Suo878 BI LI T 0.3 mg/dL 09/23/2015 Comp Metabolic Qxk142 AL BUMIN 3.8 g/dL 09/23/2015 Comp Metabolic Exu992 TP RO 6.3 g/dL 09/23/2015 Comp Metabolic Fqh699 GL OB 2.5 g/dL 09/23/2015 Comp Metabolic Rlf613 A/ G Ratio 1.5 Ratio 09/23/2015 Comp Metabolic Igi164 Os mo 274 mOsmo 09/23/2015 Free T4 Ilv455 FREE T4 1.05 ng/dL 09/23/2015 Tsh Ord6 hTSH II 1.84 uIU/mL 09/23/2015 Culture Urine [id number] URI NE CULTURE SEE NOTES 07/10/2015 Culture Urine [id number] Con tinued Results 07/10/2015 Urine Culture Ucult Comp lete >100,000 col/ml aerobic grow th sent to ref lab 07/08/2015 Comp Metabolic Juu333 NA 140 mEq/L 06/24/2015 Comp Metabolic Zob057 K 4.3 mEq/L 06/24/2015 Comp Metabolic Yow772 CL 103 mEq/L 06/24/2015 Comp Metabolic Jha596 CO2 32.0 mEq/L 06/24/2015 Comp Metabolic Erh086 AN ION GAP 9 06/24/2015 Comp Metabolic Stt190 GL UCOSE 87 mg/dL 06/24/2015 Comp Metabolic Gfs157 Cr eat 0.8 mg/dL 06/24/2015 Comp Metabolic Hmy747 eG FR 76 ml/min/1.73m2 06/24 Comp Metabolic Fkm260 BUN 10 mg/dL 06/24/2015 Comp Metabolic Bog937 B/ C Ratio 12.8 Ratio 06/24/2015 Comp Metabolic Rkb088 CA LCIUM 9.0 mg/dL 06/24/2015 Comp Metabolic Mry761 AL K PHOS 93 U/L 06/24/2015 Comp Metabolic Dtz935 T(SGOT) 16 U/L 06/24/2015 Comp Metabolic Wpl089 AL T(SGPT) 10 U/L 06/24/2015 Comp Metabolic Png315 BI LI T 0.4 mg/dL 06/24/2015 Comp Metabolic Xlm385 AL BUMIN 3.8 g/dL 06/24/2015 Comp Metabolic Qxc682 TP RO 6.2 g/dL 06/24/2015 Comp Metabolic Wru008 GL OB 2.4 g/dL 06/24/2015 Comp Metabolic Wuo923 A/ G Ratio 1.5 Ratio 06/24/2015 Comp Metabolic Rja989 Os mo 278 mOsmo 06/24/2015 Cbc With [...] 28.4 pg 06/24/2015 Cbc With Differential Ord2 [place]% 10.0 % 06/24/2015 Cbc With Differential Ord2 [...] 3.51 K/ul 06/24/2015 Cbc With Differential Ord2 [place] ABS# 0.8 K/ul 06/24/2015 Cbc With Differential Ord2 Eos ABS# 0.4 K/ul 06/24/2015 Cbc With Differential Ord2 Baso ABS# 0.1 K/ul 06/24/2015 Cbc With Differential Ord2 New Analyzer Notice Please note new ref ranges s tarting 05-28-2015 due to implemntation of new five part differential hematolgy analyzer. 06/24/2015 Free T4 Tbx860 FREE T4 0.98 ng/dL 06/24/2015 Tsh Ord6 hTSH II 3.48 uIU/mL 06/24/2015 Lipid Ord30 CHOL 158 mg/dL 06/24/2015 Lipid Ord30 HDL 45.0 mg/dl 06/24/2015 Lipid Ord30 TRIG 129 mg/dL 06/24/2015 Lipid Ord30 LDL 87 mg/dL 06/24/2015 Lipid Ord30 C/HDL 3.5 Ratio 06/24/2015 Valproic Acid Snl444 BHARATH PROIC 42.0 ug/ml 06/24/2015 TSH [id number] TSH 1.199 uIU/ML 08/20/2013 FREE T4 4965296 FREE T4 1.06 NG/DL 08/20/2013 URINALYSIS NONAUTO W/O SCOPE 49599 Specific [place] 1.010 DateTime(Free Text in Aprima) URINALYSIS NONAUTO W/O SCOPE 06695 PH 6.0 DateTime(Free Jayy t in Apr) URINALYSIS NONAUTO W/O SCOPE 19350 GLUCOSE neg DateTime(Free Jayy t in [employer]) URINALYSIS NONAUTO W/O SCOPE 97769 Protein neg DateTime(Free Jayy t in [employer]) URINALYSIS NONAUTO W/O SCOPE 81445 Blood 1+ DateTime(Free Text in [employer]) URINALYSIS NONAUTO W/O SCOPE 18435 Bilirubin neg DateTime(Free Jayy t in [employer]) URINALYSIS NONAUTO W/O SCOPE 06290 Ketones neg DateTime(Free Jayy t in [employer]) URINALYSIS NONAUTO W/O SCOPE 02066 Urobilinogen neg DateTime(Free Text in [employer]) URINALYSIS NONAUTO W/O SCOPE 92992 Nitrite neg DateTime(Free Jayy t in Aprima) URINALYSIS NONAUTO W/O SCOPE 71189 Leukocytes 1+ DateTime(Free Text in [employer]) URINALYSIS NONAUTO W/O SCOPE 34865 Specific [place] 1.005 DateTime(Free Text in [employer]) URINALYSIS NONAUTO W/O SCOPE 39825 PH 7 DateTime(Free Text in [employer]) URINALYSIS NONAUTO W/O SCOPE 13080 GLUCOSE neg DateTime(Free Jayy t in Aprima) URINALYSIS NONAUTO W/O SCOPE 84582 Protein neg DateTime(Free Jayy t in Aprima) URINALYSIS NONAUTO W/O SCOPE 95942 Blood trace DateTime(Free T ext in [employer]) URINALYSIS NONAUTO W/O SCOPE 04242 Bilirubin neg DateTime(Free Jayy t in Aprima) URINALYSIS NONAUTO W/O SCOPE 18995 Ketones neg DateTime(Free Jayy t in Aprima) URINALYSIS NONAUTO W/O SCOPE 21307 Urobilinogen neg DateTime(Free Text in [employer]) URINALYSIS NONAUTO W/O SCOPE 71975 Nitrite neg DateTime(Free Jayy t in Aprima) URINALYSIS NONAUTO W/O SCOPE 65370 Leukocytes neg DateTime(Free Text in Aprima) UA 20060 Specific [place] 1.005 DateTime(Free Text in Aprima ) UA 20254 PH 6 DateTime(Free Text in Aprima ) UA 75380 GLUCOSE neg DateTime(Free Text in Aprima ) UA 71807 Protein neg DateTime(Free Text in Aprima ) UA 19639 Blood trace DateTime(Free Text in Aprima ) UA 04439 Bilirubin neg DateTime(Free Text in Aprima ) UA 09394 Ketones neg DateTime(Free Text in Aprima ) UA 96462 Urobilinogen 0.2 DateTime(Free Text in Aprima ) UA 58466 Nitrite neg DateTime(Free Text in Aprima ) UA 20976 Leukocytes neg DateTime(Free Text in Aprima ) Review of Systems System Result Effective [...] No alteration of consciousness 10/19/2016 Psychiatric anxiety 06/0 10/2016 Psychiatric depression 0 10/19/2016 Psychiatric disturbances [...] Genitourinary/Nephrology No urinary incontinence 07/20/2016 Psychiatric anxiety 0311/2016 Psychiatric depression 0 07/20/2016 Psychiatric disturbances of [...] 03/18/2016 Dermatologic No rash 07/2015 Psychiatric anxiety 110 07/2015 Psychiatric depression 1 05/18/2015 Psychiatric disturbances [...] 06/19/2015 Musculoskeletal No myalgias 06/19/2015 Psychiatric anxiety 02/08/2015 Psychiatric depression 0 06/19/2015 Constitutional No recent [...] No alteration of consciousness 04/18/2014 Psychiatric anxiety 12/0 08/2013 Psychiatric depression 1 06/19/2013 Constitutional No [...] 08/20/2013 Dermatologic No rash 11/2013 Psychiatric anxiety 11/2013 Psychiatric depression 0 08/20/2013 Psychiatric disturbances [...] 08/14/2012 Dermatologic No rash 05/2012 Psychiatric anxiety 04/0 05/2012 Psychiatric depression 0 08/14/2012 Ears/Nose/Throat/Neck No dental [...] distress 01/22/2013 None Full Exam - General 1994 Constitutional general appearance Overall: well nourished 01/22/2013 None Full Exam - General 1994 Eyes pupils and irises Pupil: round 01/22/2013 [...] shape 08/14/2012 None Full Exam - General 1994 [...] non-tender 04/17/2012 None Full Exam - General 1995 Chest/Breast breast and axillae palpation Lower inner quadrant: tender 04/17/2012 over bill 8 o clock position Full Exam - General 1995 Chest/Breast breast and axillae palpation Lower inner quadrant: soft 04/17/2012 None Full Exam - General 1995 Chest/Breast breast/chest inspection Overall: normal chest shape 04/17/2012 None Full Exam - General 1995 Chest/Breast [...] 1995 Ears/Nose/Throat oral cavity/pharynx/larynx Overall: no masses 12/01/2011 [...] non-tender 08/11/2011 None Full Exam - General 1995 [...] Date URINALYSIS NONAUTO W /O SCOPE CPT-4: 02944Xkwjapl 11/10/2016 ADMIN INFLUENZA VIRU S VAC CPT-4: K0371Oocnwft 02/20/2016 FLU VACC 4 BHARATH 3 YRS PLUS IM Formatting Model/CDA Sections, Assigned to/Juli Cerrato SNOMED CT: 89041639 CPT-4: 21685Tqcqxic 02/20/2016 TRIAMCINOLONE ACET I [place] NOS CPT-4: D9843Uqovuyt 01/26/2016 URINALYSIS NONAUTO W /O SCOPE CPT-4: 22235Kvysvxn 09/23/2015 URINALYSIS NONAUTO W /O SCOPE CPT-4: 34572Nudxwbx 07/07/2015 ADMIN INFLUENZA VIRU S VAC Formatting Model/CDA Sections, Assigned to CPT-4: D7466Xbaojop 02/13/2015 FLU VACC 4 BHARATH 3 YRS PLUS IM Formatting Model/CDA Sections, Assigned to SNOMED CT: 78147594 CPT-4: 92429Ftuaaox 02/13/2015 TENIVAC TD VACCINE N O PRSRV 7/> IM Assigned to CPT-4: 34873Sgbvitx 10/23/2014 URINALYSIS NONAUTO W /O SCOPE CPT-4: 59590Lhdheow 10/23/2014 OCCULT BLOOD FECES CPT-4: 25569Qfekuxo 10/08/2014 PPPS, SUBSEQ VISIT CPT-4: S5686Selpwpt 10/02/2014 TRIAMCINOLONE ACET I [place] NOS CPT-4: J4240Yuopbyq 07/08/2014 URINALYSIS NONAUTO W /O SCOPE CPT-4: 21647Xyqdjjx 06/03/2014 THER/PROPH/DIAG INJ SC/IM CPT-4: 46836Hmspqew 04/18/2014 KETOROLAC TROMETHAMI NE INJ CPT-4: I6720Ymwebyk 04/18/2014 ADMIN INFLUENZA VIRU S VAC CPT-4: Y7398Icjehwe 01/29/2014 ADMIN PNEUMOCOCCAL V ACCINE Assigned to/Juli Cerrato CT: 75642797 CPT-4: H3397Oxbspyi 01/29/2014 FLU VAC NO PRSV 4 VA L 3 YRS+ CPT-4: 36649Nqyvdwg 01/29/2014 URINALYSIS NONAUTO W /O SCOPE CPT-4: 14080Hpkkomj 11/12/2013 ROUTINE VENIPUNCTURE CPT-4: 06846Jazjcam 08/20/2013 TRIAMCINOLONE ACET I [place] NOS CPT-4: N9793Apmlfnp 03/20/2013 THER/PROPH/DIAG INJ SC/IM CPT-4: 43189Uxjggwv 03/20/2013 URINALYSIS NONAUTO W /O SCOPE CPT-4: 86693Kkfqunw 03/01/2013 URINALYSIS NONAUTO W /O SCOPE CPT-4: 58536Imnzuqj 09/04/2012 TRIAMCINOLONE ACET I [place] NOS CPT-4: V5821Zdlpodh 08/22/2012 ROCEPHIN, PER 250 MG CPT-4: O2591Ngajpzd 08/22/2012 TRIAMCINOLONE ACET I [place] NOS CPT-4: T1354Glghoft 05/22/2012 THER/PROPH/DIAG INJ SC/IM CPT-4: 22093Nsjlfdy 05/22/2012 ROCEPHIN, PER 250 MG CPT-4: E4768Ycydguo 05/22/2012 PRESCRIP TRANSMIT A ERX SY CPT-4: H0719Izpjqot 05/22/2012 ADMIN INFLUENZA VIRU S VAC CPT-4: M0184Fuidbbf 02/23/2012 FLULAVAL VACC, 3 YRS & >, IM CPT-4: V4928Yqzydbr 02/23/2012 PRESCRIP TRANSMIT A ERX SY CPT-4: V0207Kyobveo 06/01/2011 Vital Signs Date Vital 10/19/2016 Blood Pressure 1: 126/64 Code: 8480-6 Heart Rate 1: 93 bpm Height: 5' SpO2: 97% Weight: 08/09/2016 Blood Pressure 1: 116/68 Code: 8480-6 BMI: 40.2 Code: 16912-4 Heart Rate 1: 98 bpm Height: 5' SpO2: 97% Temperature: 37.5 (C ) / 99.5 (F) Weight: 206 lbs 07/20/2016 Blood Pressure 1: 126/74 Code: 8480-6 BMI: 40.2 Code: 45374-5 Heart Rate 1: 94 bpm Height: 5' SpO2: 95% Weight: 206 lbs 05/27/2016 Blood Pressure 1: 136/76 Code: 8480-6 BMI: 39.1 Code: 71904-2 Heart Rate 1: 95 bpm Height: 5' SpO2: 98% Weight: 200 lbs 04/29/2016 Blood Pressure 1: 128/76 Code: 8480-6 Heart Rate 1: 72 bpm Height: SpO2: 96% Weight: 04/02/2016 Blood Pressure 1: 138/88 Code: 8480-6 BMI: 38.5 Code: 59425-3 Heart Rate 1: 88 bpm Height: 5' SpO2: 96% Weight: 197 lbs 03/18/2016 Blood Pressure 1: 148/88 Code: 8480-6 BMI: 38.5 Code: 48491-8 Heart Rate 1: 66 bpm Height: 5' SpO2: 98% Weight: 197 lbs 01/26/2016 BMI: 39.5 Code: 58573-8 Height: 5' Weight: 202 lbs 01/01/2016 Blood Pressure 1: 120/80 Code: 8480-6 BMI: 40.0 Code: 68281-6 Heart Rate 1: 86 bpm Height: 5' SpO2: 94% Weight: 205 lbs 12/25/2015 Blood Pressure 1: 138/80 Code: 8480-6 BMI: 40.0 Code: 18135-7 Height: 5' Weight: 205 lbs 12/08/2015 Blood Pressure 1: 122/72 Code: 8480-6 Heart Rate 1: 100 bpm Height: 5' SpO2: 98% 09/23/2015 Blood Pressure 1: 130/82 Code: 8480-6 BMI: 40.2 Code: 24750-6 Heart Rate 1: 77 bpm Height: 5' SpO2: 97% Weight: 206 lbs 06/19/2015 Blood Pressure 1: 128/80 Code: 8480-6 BMI: 40.8 Code: 63312-7 Heart Rate 1: 80 bpm Height: 5' SpO2: 94% Weight: 209 lbs 05/19/2015 Blood Pressure 1: 128/78 Code: 8480-6 BMI: 41.0 Code: 24320-2 Heart Rate 1: 103 bpm Height: 5' SpO2: 97% Weight: 210 lbs 04/28/2015 Blood Pressure 1: 128/76 Code: 8480-6 BMI: 41.4 Code: 26947-4 Heart Rate 1: 72 bpm Height: 5' Weight: 212 lbs 03/18/2015 Blood Pressure 1: 128/78 Code: 8480-6 BMI: 41.6 Code: 09734-5 Heart Rate 1: 74 bpm Height: 5' SpO2: 97% Weight: 213 lbs 02/27/2015 Blood Pressure 1: 128/70 Code: 8480-6 BMI: 41.2 Code: 60399-8 Heart Rate 1: 74 bpm Height: 5' SpO2: 95% Weight: 211 lbs 02/13/2015 Blood Pressure 1: 148/80 Code: 8480-6 BMI: 41.2 Code: 46443-2 Heart Rate 1: 90 bpm Height: 5' SpO2: 95% Weight: 211 lbs 11/18/2014 Blood Pressure 1: 124/60 Code: 8480-6 BMI: 40.8 Code: 87077-6 Heart Rate 1: 75 bpm Height: 5' SpO2: 97% Weight: 209 lbs 10/23/2014 Blood Pressure 1: 118/70 Code: 8480-6 BMI: 43.3 Code: 38970-1 Heart Rate 1: 78 bpm Height: 4'10" SpO2: 96% Temperature: 36.5 (C ) / 97.7 (F) Weight: 207 lbs 10/02/2014 Blood Pressure 1: 118/78 Code: 8480-6 BMI: 42.5 Code: 37397-7 Heart Rate 1: 77 bpm Height: 4'10" SpO2: 97% Waist Measure (cm): 107 cm Weight: 207 lbs 09/25/2014 Blood Pressure 1: 140/78 Code: 8480-6 Blood Pressure 2: 140/80 Code: 8480-6 09/23/2014 Blood Pressure 1: 106/62 Code: 8480-6 BMI: 42.9 Code: 89721-7 Heart Rate 1: 99 bpm Height: 4'10" SpO2: 97% Weight: 209 lbs 07/08/2014 Blood Pressure 1: 136/82 Code: 8480-6 BMI: 43.6 Code: 07715-6 Heart Rate 1: 72 bpm Height: 4'10" SpO2: 96% Temperature: 37.0 (C ) / 98.6 (F) Weight: 212 lbs 05/31/2014 Blood Pressure 1: 140/88 Code: 8480-6 BMI: 41.1 Code: 47754-5 Heart Rate 1: 92 bpm Height: 4'10" Weight: 200 lbs 04/18/2014 Blood Pressure 1: 132/78 Code: 8480-6 BMI: 41.9 Code: 19283-2 Heart Rate 1: 80 bpm Height: 4'10" Weight: 204 lbs 03/05/2014 Blood Pressure 1: 128/80 Code: 8480-6 BMI: 41.3 Code: 09224-4 Heart Rate 1: 60 bpm Height: 4'10" SpO2: 96% Weight: 201 lbs 01/29/2014 Blood Pressure 1: 142/88 Code: 8480-6 BMI: 41.5 Code: 44558-9 Heart Rate 1: 80 bpm Height: 4'10" Weight: 202 lbs 10/23/2013 Blood Pressure 1: 110/56 Code: 8480-6 BMI: 41.5 Code: 51747-1 Heart Rate 1: 76 bpm Height: 4'10" Weight: 202 lbs 10/11/2013 Blood Pressure 1: 124/74 Code: 8480-6 BMI: 41.5 Code: 35761-4 Heart Rate 1: 76 bpm Height: 4'10" Weight: 202 lbs 09/17/2013 Blood Pressure 1: 140/84 Code: 8480-6 Heart Rate 1: 80 bpm Weight: 203 lbs 08/27/2013 Blood Pressure 1: 124/80 Code: 8480-6 Heart Rate 1: 72 bpm Weight: 08/20/2013 Blood Pressure 1: 110/50 Code: 8480-6 BMI: 40.3 Code: 16880-0 Heart Rate 1: 72 bpm Height: 4'10" Weight: 196 lbs 07/10/2013 Blood Pressure 1: 110/56 Code: 8480-6 Heart Rate 1: 82 bpm SpO2: 95% Weight: 03/20/2013 Blood Pressure 1: 158/80 Code: 8480-6 Heart Rate 1: 72 bpm Temperature: 37.1 (C) / 98.8 (F) Weight: 189 lbs 03/07/2013 Blood Pressure 1: 108/66 Code: 8480-6 BMI: 38.8 Code: 44873-2 Heart Rate 1: 76 bpm Height: 4'10" Weight: 189 lbs 01/22/2013 Blood Pressure 1: 110/68 Code: 8480-6 BMI: 38.8 Code: 33639-7 Heart Rate 1: 76 bpm Height: 4'10" Weight: 189 lbs 08/22/2012 Blood Pressure 1: 126/68 Code: 8480-6 BMI: 37.0 Code: 89535-1 Heart Rate 1: 76 bpm Height: 4'10" Temperature: 36.7 (C ) / 98.0 (F) Weight: 180 lbs 08/14/2012 Blood Pressure 1: 106/64 Code: 8480-6 BMI: 36.6 Code: 49000-4 Heart Rate 1: 72 bpm Height: 4'10" Weight: 178 lbs 05/22/2012 Blood Pressure 1: 124/72 Code: 8480-6 Heart Rate 1: 80 bpm Temperature: 36.4 (C) / 97.6 (F) Weight: 185 lbs 04/17/2012 Blood Pressure 1: 120/66 Code: 8480-6 BMI: 37.0 Code: 85429-6 Heart Rate 1: 65 bpm Height: 4'10" SpO2: 98% Weight: 180 lbs 12/01/2011 Blood Pressure 1: 122/58 Code: 8480-6 Heart Rate 1: 76 bpm Respiratory Rate: 24 bpm Weight: 175 lbs 08/11/2011 Blood Pressure 1: 98/44 Code: 8480-6 BMI: 34.1 Code: 83927-7 Heart Rate 1: 86 bpm Height: 4'10" Respiratory Rate: 16 bpm Weight: 166 lbs 06/01/2011 Blood Pressure 1: 104/62 Code: 8480-6 BMI: 34.8 Code: 14993-9 Heart Rate 1: 72 bpm Height: 4'10" Respiratory Rate: 16 bpm Weight: 169 lbs 8 oz 05/18/2011 Blood Pressure 1: 130/66 Code: 8480-6 BMI: 34.8 Code: 22497-6 Heart Rate 1: 64 bpm Height: 4'11" [...] None Hospital Follow Up _ Oth er: [facility] 02/13/2015 None back pain Quality dull 11/18/2014 [...] days ago 08/27/2013 fell on [place] [facility] pain Pertinent Findings stiffness 08/27/2013 None [...] t states that since her stay in [facility] - she is much [...] Exercise no exercise 03/20/2013 None 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 03/07/2013 None hypothyroid Severity mil [...] Findings Denies edema 03/07/2013 None 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 P ATIENT, LEVEL III Diagnosis: Unsteadiness on feet[ICD10: R26.81] Diagnosis: Unspecified fracture of left calcaneus, initial encounter for closed fracture[ICD10: S92.002A] Diagnosis: Allergic rhinitis due to pollen[ICD10: J30.1] Michelle Littlejohn MD, [facility] CPT-4: 19831 10/19/2016 ([id number]) 46383 EST. P ATIENT, LEVEL III Diagnosis: Cough[ICD10: R05] Diagnosis: Fever, unspecified[ICD10: R50.9] Diagnosis: Acute recurrent maxillary sinusitis[ICD10: J01.01] Michelle Littlejohn MD, [facility] CPT-4: 65534 08/09/2016 ([id number]) 65279 EST. P ATIENT, LEVEL III Diagnosis: Essential (primary) hypertension[ICD10: I10] Diagnosis: Allergic rhinitis due to pollen[ICD10: J30.1] Diagnosis: Bipolar disorder, current episode depressed, moderate[ICD10: F31.32] Michelle Littlejohn MD, [facility] CPT-4: 40158 07/20/2016 ([id number]) 35545 EST. P ATIENT, LEVEL III Diagnosis: Cough[ICD10: R05] Diagnosis: Bipolar disorder, current episode depressed, moderate[ICD10: F31.32] Diagnosis: Acute upper respiratory infection, unspecified[ICD10: J06.9] Michelle Littlejohn MD, [facility] CPT-4: 88960 05/27/2016 ([id number]) 72933 EST. P ATIENT, LEVEL III Diagnosis: Bipolar disorder, current episode manic without psychotic features, moderate[ICD10: F31.12] Diagnosis: Essential (primary) hypertension[ICD10: I10] Michelle Littlejohn MD, [facility] CPT-4: 46235 04/29/2016 ([id number]) 54998 EST. P ATIENT, LEVEL III Diagnosis: Bipolar disorder, current episode depressed, moderate[ICD10: F31.32] Michelle Littlejohn MD, [facility] CPT-4: 80379 04/02/2016 ([id number]) 84313 EST. P ATIENT, LEVEL IV Diagnosis: Bipolar disorder, current episode manic without psychotic features, moderate[ICD10: F31.12] Diagnosis: Essential (primary) hypertension[ICD10: I10] Michelle Littlejohn MD, [facility] CPT-4: 36605 03/18/2016 ([id number]) 59661 EST. P ATIENT, LEVEL III Diagnosis: Acute laryngopharyngitis[ICD10: J06.0] Diagnosis: Cough[ICD10: R05] Diagnosis: Allergic rhinitis due to pollen[ICD10: J30.1] Michelle Littlejohn MD, [facility] CPT-4: 16400 01/26/2016 ([id number]) Miscellaneou s no charge Diagnosis: Other seborrheic keratosis[ICD10: L82.1] Michelle Littlejohn MD, [facility] CPT-4: 07792 01/01/2016 ([id number]) 96313 EST. P ATIENT, LEVEL III Diagnosis: Essential (primary) hypertension[ICD10: I10] Diagnosis: Mixed hyperlipidemia[ICD10: E78.2] Diagnosis: Other obesity due to excess calories[ICD10: E66.09] Diagnosis: Frequency of micturition[ICD10: R35.0] Michelle Littlejohn MD, [facility] CPT-4: 74972 12/25/2015 ([id number]) 39141 EST. P ATIENT, LEVEL IV Diagnosis: Gastro-esophageal reflux disease without esophagitis[ICD10: K21.9] Diagnosis: Essential (primary) hypertension[ICD10: I10] Diagnosis: Generalized anxiety disorder[ICD10: F41.1] Michelle Littlejohn MD, [facility] CPT-4: 92204 12/08/2015 ([id number]) 07109 EST. P ATIENT, LEVEL IV Diagnosis: Bipolar disorder, current episode depressed, moderate[ICD10: F31.32] Diagnosis: Essential (primary) hypertension[ICD10: I10] Diagnosis: Hypothyroidism, unspecified[ICD10: E03.9] Diagnosis: Allergic rhinitis due to pollen[ICD10: J30.1] Diagnosis: Dysuria[ICD10: R30.0] Michelle Littlejohn MD, [facility] CPT-4: 56707 09/23/2015 ([id number]) 83399 EST. P ATIENT, LEVEL III Diagnosis: Essential (primary) hypertension[ICD10: I10] Diagnosis: Hypothyroidism, unspecified[ICD10: E03.9] Diagnosis: Mixed hyperlipidemia[ICD10: E78.2] Diagnosis: Bipolar disorder, current episode depressed, moderate[ICD10: F31.32] Michelle Littlejohn MD, [facility] CPT-4: 14191 06/19/2015 ([id number]) 52844 EST. P ATIENT, LEVEL III Diagnosis: Essential (primary) hypertension[ICD10: I10] Diagnosis: Major depressive disorder, single episode, unspecified[ICD10: F32.9] Michelle Littlejohn MD, [facility] CPT-4: 64185 05/19/2015 ([id number]) 39890 EST. P ATIENT, LEVEL III Diagnosis: Rash and other nonspecific skin eruption[ICD10: R21] Jodie Littlejohn MD, [facility] CPT-4: 96647 04/28/2015 ([id number]) 04618 EST. P ATIENT, LEVEL III Diagnosis: Essential (primary) hypertension[ICD10: I10] Diagnosis: Bipolar disorder, current episode depressed, moderate[ICD10: F31.32] Michelle Littlejohn MD, [facility] CPT-4: 19147 03/18/2015 ([id number]) 44792 EST. P ATIENT, LEVEL II Diagnosis: Other seborrheic keratosis[ICD10: L82.1] Michelle Littlejohn MD, [facility] CPT-4: 16810 02/27/2015 ([id number]) 92283 EST. P ATIENT, LEVEL IV Diagnosis: Hypothyroidism, unspecified[ICD10: E03.9] Diagnosis: Bipolar disorder, current episode depressed, moderate[ICD10: F31.32] Michelle Littlejohn MD, [facility] CPT-4: 05614 02/13/2015 ([id number]) 73686 EST. P ATIENT, LEVEL III Diagnosis: Yeast infection involving the vagina and surrounding area[ICD9: 112.1] Diagnosis: Back pain[ICD9: 724.5] Diagnosis: Muscle strain[ICD9: 848.9] Katerin Littlejohn MD, [facility] CPT-4: 36070 11/18/2014 ([id number]) 18159 EST. P ATIENT, LEVEL IV Diagnosis: Dog bite[ICD9: 879.8] Diagnosis: CELLULITIS OF ARM[ICD9: 682.3] Diagnosis: DYSURIA[ICD9: 788.1] Katerin Littlejohn MD, [facility] CPT-4: 64122 10/23/2014 ([id number]) Maxine andrew no charge Diagnosis: ESSENTIAL HYPERTENSION[ICD9: 401.9] Jodie Littlejohn MD, [facility] CPT- 4: 27756 09/25/2014 ([id number]) 96684 EST. P ATIENT, LEVEL IV Diagnosis: Hypotension[ICD9: 458.9] Diagnosis: DIZZINESS AND GIDDINESS[ICD9: 780.4] Diagnosis: HYPOTHYROIDISM[ICD9: 244.9] Michelle Littlejohn MD, [facility] CPT- 4: 63950 09/23/2014 ([id number]) 87425 EST. P ATIENT, LEVEL III Diagnosis: ACUTE URI[ICD9: 465.9] Diagnosis: COUGH[ICD9: 786.2] Diagnosis: EDEMA[ICD9: 782.3] Michelle Littlejohn MD, [facility] CPT-4: 46250 07/08/2014 ([id number]) 98451 EST. P ATIENT, LEVEL IV Diagnosis: ESSENTIAL HYPERTENSION[ICD9: 401.9] Diagnosis: HYPOTHYROIDISM[ICD9: 244.9] Diagnosis: Dysuria[ICD9: 788.1] Jodie Littlejohn MD, [facility] CPT-4: 97676 05/31/2014 ([id number]) 62918 EST. P ATIENT, LEVEL III Diagnosis: Back pain[ICD9: 724.5] Jodie Littlejohn MD, [facility] CPT-4: 84394 04/18/2014 ([id number]) 30761 EST. P ATIENT, LEVEL IV Diagnosis: Back pain[ICD9: 724.5] Diagnosis: Scab[ICD9: 782.8] Diagnosis: BIPOLAR AFFECTIVE, MANIC, UNSPEC[ICD9: 296.40] Jodie Littlejohn MD, [facility] CPT-4: 42805 03/05/2014 ([id number]) 98100 EST. P ATIENT, LEVEL III Diagnosis: ESSENTIAL HYPERTENSION[ICD9: 401.9] Jodie Littlejohn MD, [facility] CPT- 4: 46497 01/29/2014 ([id number]) 32960 EST. P ATIENT, LEVEL IV Diagnosis: ESSENTIAL HYPERTENSION[SNOMED: 04791111] Diagnosis: EDEMA[ICD9: 782.3] Diagnosis: DEPRESSIVE DISORDER NEC[ICD9: 311] Jodie Littlejohn MD, [facility] CPT- 4: 88746 10/23/2013 01002 EST. PATIENT, LEVEL II Diagnosis: Rash[ICD9: 782.1] Michelle Littlejohn MD, [facility] CPT-4: 90260 10/11/2013 ([id number]) 12118 EST. P ATIENT, LEVEL III Diagnosis: EDEMA[ICD9: 782.3] Jodie Littlejohn MD, [facility] CPT-4: 65466 09/17/2013 ([id number]) 11488 EST. P ATIENT, LEVEL III Diagnosis: EDEMA[ICD9: 782.3] Diagnosis: Left ankle pain[ICD9: 719.47] Michelle Littlejohn MD, [facility] CPT- 4: 50572 08/27/2013 ([id number]) 67649 EST. P ATIENT, LEVEL IV Diagnosis: BIPOLAR AFFECTIVE, MANIC, UNSPEC[ICD9: 296.40] Diagnosis: HYPOTHYROIDISM[ICD9: 244.9] Jodie Littlejohn MD, [facility] CPT-4: 13218 08/20/2013 ([id number]) 89949 EST. P ATIENT, LEVEL IV Diagnosis: BIPOLAR AFFECTIVE, MANIC, UNSPEC[ICD9: 296.40] Diagnosis: DEPRESSIVE DISORDER NEC[ICD9: 311] Jodie Littlejohn MD, [facility] CPT- 4: 40974 07/10/2013 ([id number]) 64229 EST. 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 P ATIENT, LEVEL IV Diagnosis: Elevated fasting glucose[ICD9: 790.21] Diagnosis: HYPOTHYROIDISM[ICD9: 244.9] Diagnosis: DEPRESSIVE DISORDER NEC[ICD9: 311] Jodie Littlejohn MD, [facility] CPT- 4: 83041 03/07/2013 ([id number]) 74670 EST. P ATIENT, LEVEL III Diagnosis: HYPOTHYROIDISM[ICD9: 244.9] Diagnosis: DEPRESSIVE DISORDER NEC[ICD9: 311] Jodie Littlejohn MD, [facility] CPT- 4: 79055 01/22/2013 ([id number]) 10223 EST. P ATIENT, LEVEL III Diagnosis: ACUTE URI[ICD9: 465.9] Diagnosis: COUGH[ICD9: 786.2] Michelle Littlejohn MD, [facility] CPT-4: 30632 08/22/2012 ([id number]) 79009 EST. P ATIENT, LEVEL IV Diagnosis: ESSENTIAL HYPERTENSION[SNOMED: 66128786] Diagnosis: HYPERLIPIDEMIA[ICD9: 272.4] Jodie Littlejohn MD, [facility] CPT-4: 47115 08/14/2012 ([id number]) 41482 EST. P ATIENT, LEVEL III Diagnosis: ACUTE URI[ICD9: 465.9] Jodie Littlejohn MD, [facility] CPT-4: 81833 05/22/2012 ([id number]) 26268 EST. P ATIENT, LEVEL III Diagnosis: ESSENTIAL HYPERTENSION[SNOMED: 77135050] Jodie Littlejohn MD, [facility] CPT-4: 63694 04/17/2012 ([id number]) 78336 EST. P ATIENT, LEVEL IV Diagnosis: HYPOTHYROIDISM[ICD9: 244.9] Diagnosis: HYPERLIPIDEMIA[ICD9: 272.4] Diagnosis: DEPRESSIVE DISORDER NEC[ICD9: 311] Diagnosis: Vitamin D deficiency[ICD9: 268.9] Jodie Littlejohn MD, [facility] CPT-4: 15470 12/01/2011 ([id number]) 99838 EST. 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 P ATIENT, LEVEL IV Diagnosis: MASTODYNIA[ICD9: 611.71] Diagnosis: DEPRESSIVE DISORDER NEC[ICD9: 311] Diagnosis: Flatulence[ICD9: 787.3] Diagnosis: ABRASION HAND[ICD9: 914.0] [facility] CPT-4: 30692 06/01/2011 40491 EST. PATIENT, LEVEL IV Diagnosis: Breast pain in female[ICD9: 611.71] Diagnosis: DEPRESSIVE DISORDER NEC[ICD9: 311] Diagnosis: HYPERLIPIDEMIA[ICD9: 272.4] Diagnosis: HYPOTHYROIDISM[ICD9: 244.9] [facility] CPT-4: 53758 05/18/2011 Plan of Care Planned Activity Notes [...] assist-home health to continue working with her. Eskbtqvar-jwrkboo-hhiulndw daily anti histamine 10/19/2016 Appointment: Michelle Garcia WPtel: [address] [place], [place] [phone] (30 min) [facility] 10/19/2016 Patient Education: Patient Medication Summary Completed [...] show improvement. 08/09/2016 Appointment: Michelle Garcia WPtel: [phone] (15 min) Moderate 08/09/2016 Patient Education: Patient [...] stable-no changes-call with any concerns. 07/20/2016 Appointment: Mcihelle Garcia WPtel: [phone] (30 min) Complex 07/20/2016 Patient Education: Patient [...] stable-no changes 05/27/2016 Appointment: Michelle Garcia WPtel: [phone] (30 min) Complex 05/27/2016 Patient Education: Patient [...] if needed 04/29/2016 Appointment: Michelle Garcia WPtel: [phone] (30 min) Complex 04/29/2016 Patient Education: Patient [...] of plan. 04/02/2016 Appointment: [facility] [phone] [facility] [phone] (30 min) Complex 04/02/2016 Patient Education: Patient [...] at home. 03/18/2016 Appointment: Michelle Garcia WPtel: [facility] [phone] (30 min) Complex 03/18/2016 Patient Education: Patient [...] in the office 01/26/2016 Appointment: Michelle Garcia WPte: [address] [place], [place] [phone] (30 min) [facility] 01/26/2016 Patient Education: Patient Medication Summary Completed [...] month for weight check.First goal weight for TOPVeronica is 190#Urinary frequency-check UA 12/25/2015 Patient Education: [...] current medications. 12/08/2015 Appointment: Michelle Garcia WPtel: [address] [place], [place] [phone] (15 min) Moderate 12/08/2015 Patient Education: Patient [...] of plan. 04/28/2015 Appointment: Michelle Garcia WPtel: [address] [place], [place] [phone] (15 min) Moderate 04/28/2015 Patient Education: Patient [...] depression-patients sees Dr Valencia-recent inpatient stay at [facility] Unit-now on latuda and doing well-no changes [...] Patient Education: Hypertension Completed 09/25/2014 Visit Plan: Qzvofydcgwf-uwjwyutui-irwgf labs-increase po fluids-monitor blood pressure and pulse-return [...] Care Plan: COMPLETE CBC AUTOMATED LOINC : 76649-3 Ordered 09/23/2014 Care Plan: URINALYSIS NONAUTO W/O SCOPE LOINC : 98129-7 Ordered 09/23/2014 Visit Plan: URI - Pt [...] Completed 07/08/2014 Appointment: Jodie Littlejohn [facility]el[facility] [phone] [id number] [place] Lab Draw 06/03/2014 Patient Education: Patient [...] at home. 05/31/2014 Appointment: Jodie Littlejohn [facility]el[facility] [phone] [facility] [id number] [place] Follow up 05/31/2014 Patient Education: Patient Medication Summary Completed 05/31/2014 Patient Education: Hypertension Completed 05/31/2014 Appointment: Jodie Littlejohn WPtel: [facility] [id number] [place] Follow up 05/07/2014 Visit Plan: [facility] [place] 400[place] twice daily x 7 days DRINK LOTS of water - at least 16 ounces with each dose of ibuprofen (motrin)you need to get a deep tissue massage.heat to neck and lower back tiger balm for your neck and back muscles. 04/18/2014 Appointment: Jodie Littlejohn WPtel: [facility] Follow up 04/18/2014 Patient Education: Patient Medication Summary Completed 04/18/2014 Care Plan: ASSAY OF CK (CPK) Ordered 04/18/2014 Care Plan: ASSAY DIPROPYLACETIC ACID Ordered 04/18/2014 Care Plan: ASSAY OF MYOGLOBIN Ordered 04/18/2014 Care Plan: COMPLETE CBC AUTOMATED LOINC : 65287-2 Ordered 04/18/2014 Visit Plan: Back pain - [...] not healing. 03/05/2014 Appointment: Jodie Littlejohn WPtel: [facility] [place] Follow up 03/05/2014 Patient Education: Patient [...] home. 01/29/2014 Appointment: Jodie Littlejohn WPtel: [phone] Follow up 01/29/2014 Patient Education: Patient Medication [...] anxiety/paranoia. 2013 Appointment: Jodie Littlejohn WPtel[phone] Follow up 10/23/2013 Patient Education: Patient Medication Summary Completed 10/23/2013 Patient Education: Hypertension Completed 10/23/2013 Appointment: Jodie Littlejohn WPtel: [phone] Follow up 10/16/2013 Visit Plan: Rash-culture today [...] monitor symptoms. 2013 Appointment: Jodie Littlejohn WPtel: [address] [place], [place] [phone] Follow up 09/17/2013 Patient Education: Patient Medication [...] elevated leg. 08/27/2013 Appointment: Michelle Garcia WPtel: [facility]1 [facility] [place] [address] Other 08/27/2013 Patient Education: Patient Medication Summary Completed 08/27/2013 Appointment: Jodie Littlejohn WPtel: [address] [place], [place] [id number] follow up 08/22/2013 Visit Plan: Bipolar [...] of control. 08/20/2013 Appointment: Jodie Littlejohn WPtel: [address] [place], [place] [id number] Other 08/20/2013 Patient Education: Patient Medication Summary Completed 08/20/2013 Appointment: Jodie Littlejohn WPtel: [address] [place], [place] [id number] Follow up 08/07/2013 Visit Plan: Bipolar Mood [...] will not be seeing the physician in [place] any more - had actually stopped seeing the physician in [place] as of 2-3 weeks ago.She will be seeing Dr. Cabrera in [place]. 07/10/2013 Appointment: Jodie Littlejohn WPtel[phone] [facility] Follow up 07/10/2013 Patient Education: Patient Medication [...] the office. 03/20/2013 Appointment: Michelle Garcia [facility]Ptel[id number] Other 03/20/2013 Patient Education: Patient Medication Summary [...] check hgba1c. 03/07/2013 Appointment: Jodie Littlejohn WPtel: [facility]5 [facility] Follow up 03/07/2013 Patient Education: Patient Medication Summary Completed 03/07/2013 Appointment: Michelle Garcia WPtel: [phone] Lab Draw 03/01/2013 Patient Education: Patient Medication [...] current medications. 01/22/2013 Appointment: Jodie Littlejohn WPtel: [facility]5 [facility] Follow up 01/22/2013 Patient Education: Patient Medication [...] the office. 08/22/2012 Appointment: Michelle Garcia WPtel: [phone] [facility] 08/22/2012 Patient Education: Patient Medication Summary Completed [...] to medications. 08/14/2012 Appointment: Jodie Littlejohn WPtel: [facility]5 [facility] [place] Follow up 08/14/2012 Patient Education: Patient Medication [...] at home. 04/17/2012 Appointment: Jodie Littlejohn WPtel: [phone] [place] Other 04/17/2012 Patient Education: Hypertension Completed 04/17/2012 Patient Education: Patient Medication Summary Completed 04/17/2012 Appointment: Jodie Littlejohn WPtel: [facility] [place] Injection 02/23/2012 Patient Education: Patient Medication [...] to hany. 12/01/2011 Appointment: Jodie Littlejohn WPtel: [address] [place], [place] [id number] Other 12/01/2011 Patient Education: Patient Medication Summary [...] current medications. 08/11/2011 Appointment: Jodie Littlejohn WPtel: [facility] [address] Other 08/11/2011 Appointment: Jodie Littlejohn WPtel: [facility] Other 08/11/2011 Patient Education: Patient Medication Summary [...] symptoms return. 2011 Appointment: Jodie Littlejohn WPtel: [address] [place] [address] Other 06/01/2011 Patient Education: Patient Medication Summary Completed 06/01/2011 Visit Plan: Breast pain - ordered mammog lein and ultrasound.STOP WEARING UNDERWIRE BRAS.Depression - worsening [...] of control. 2011 Appointment: Jodie Littlejohn WPtel: [address] [facility] [place] Other 05/18/2011 Patient Education: Patient Medication Summary Completed 05/18/2011 Appointment: Jodie Littlejohn WPtel: [phone] [facility] [place] Other 03/09/2011 Appointment: Jodie Littlejohn WPtel: [address] [facility] [place] Injection 01/28/2011 Referral: Angie Adorno Referral Relationship Instructions Comment Vipul . Bipolar-symptoms controlled-check depa kote level today [...] symptoms persist or worsen. . Hypothyroidism - pt with chronic hypothyroidism, [...] assist-home health to continue working with her. Cwxvlemyl-oafyvfs-zfuziwmb daily anti histamine . URI - Pt [...] monitor blood glucose levels, check hgba1c. . Hypertension - wel l controlled - [...] for TOPS is 190# Urinary frequency-check UA change generic lexap ro to bedtime dosing. [...] will not be seeing the physician in [place] any more - had actually stopped seeing the physician in [place] as of 2-3 weeks ago. She will be seeing Dr. Cabrera in [place]. zyrtec 10mg daily . Hypertension - well [...] YOUR BLOOD PRESSURE AND YOUR MACHINE . Ehpcvvrrnyr-zcxhhgegf-dnqpg labs-incre ase po fluids-monitor blood pressure and [...] up in 1 month, sooner if needed FLU SWAB . Sinusitis - Pt has [...] depression-patients sees Dr Valencia-recent inpatient stay at [facility]-now on latuda and doing well-no changes at this time. Influenza vaccine today in the office
--- OUTSIDE RECORDS SUMMARY | 2019-11-07 17:20 | XMS REPORT | CCD ---
Author Author Cesar Littlejohn Organization Jodie Littlejohn MD, [employer] Address [facility] [place] [address] Phone Care Team Providers Care Junior Linux Administrator Name Role Phone PP Unavailable CCM Unavailable Summary Purpose Interface Exchange Insurance Providers Payer name Policy type / Coverage type Covered libertarian ID Effective Begin Date Effective End Date WPS Medicare Part B Medicare Part B [id number] 2013 Unknown [facility] Part B [id number] 2013 Un known Family history Grandfather Diagnosis [...] Employment Unknown Jessica ntly employed retired from [employer], 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 [employer] 10/23/2013 Number of children Unknown 2 sons - 1 son in an accident in [place]505/13/2011 Marital status Unknown M arried 04/06/[address]: 770316820 Never smoker 04/06/[address]: 646324546 Never drinks alcohol 04/06/2011 Has the patient [...] 311 ICD-10: F32.9 Active 06/24/2015 Unknown Other long term care pharmacist (cur rent) drug therapy ICD-9: V58.69 ICD-10: [...] pain ICD-9: 719.47 Active 08/27/2013 Unknown DIETARY SURVEIL/OPHTHALMIC NURSE ICD-9: V65.3 Active 03/20/2013 Unknown IMPAIRED FASTING [...] ICD-9: 311 ICD-10: F32.9 06/24/2015 Active Other long term care pharmacist (cur rent) drug therapy ICD-9: V58.69 ICD-10: [...] ankle pain ICD-9: 719.47 08/27/2013 Active DIETARY SURVEIL/OPHTHALMIC NURSE ICD-9: V65.3 03/20/2013 Active IMPAIRED FASTING GLU [...] Fill Instructions Keflex 500 mg capsule RxNorm: 124036 1 Capsule(s) PO TID 11/10/2016 11/16/2016 Active nystatin 100,000 uni t/mL oral suspension RxNorm: 580943 5 Milliliter(s) PO sw neli and swallow QID 08/17/2016 08/16/2016 Inactive nystatin 100,000 uni t/mL oral suspension RxNorm: 902994 5 Milliliter(s) PO sw neli and swallow QID 08/17/2016 08/26/2016 Inactive Augmentin 875 mg-125 mg tablet RxNorm: 168370 1 Tablet(s) PO BID 08/09/2016 08/15/2016 Inactive Seroquel 100 mg tablet RxNorm: 055315 1/2 Tablet(s) PO QHS 07/20/2016 No Stop Date Active Depakote 125 mg tabl et,delayed release RxNorm: 8911948 2 Capsule(s) PO QAM 1 cap in the evening with meal 07/20/2016 10/17/2016 Inactive levothyroxine 88 mcg tablet RxNorm: 935367 TAKE ONE TABLET BY MO [facility] DAILY 06/01/2016 04/26/2017 Ac tive Synthroid 88 mcg tablet RxNorm: 897317 1 Tablet(s) PO daily 05/31/2016 09/27/2016 Inactive Fill generic if insurance will not cover Synthroid 88 mcg tablet RxNorm: 217403 1 Tablet(s) PO daily 05/31/2016 05/30/2016 Inactive Fill generic if insurance will not cover Flonase Allergy Reli ef 50 mcg/actuation nasal spray,suspension RxNorm: 1666560 2 [place] NASAL daily 05/27/2016 06/09/2016 Inactive Zithromax Z-Juancarlos 250 mg tablet RxNorm: 802571 1 Tablet(s) PO UD 05/27/2016 05/31/2016 Inactive zpack omeprazole 20 mg cap jacquelin,delayed release RxNorm: 945181 TAKE ONE CAPSULE BY M OUTH EVERY DAY 04/12/2016 01/06/2017 Active Effexor XR 75 mg cap jacquelin,extended release RxNorm: 038516 1 Capsule(s) PO daily TAKE ONE CAPSULE BY MOUTH DAILY 03/18/2016 12/12/2016 Active Effexor XR 37.5 mg c apsule,extended release RxNorm: 796221 TAKE ONE CAPSULE BY M OUTH DAILY 02/23/2016 03/17/2016 Inactive promethazine 6.25 mg -codeine 10 mg/5 mL syrup RxNorm: 000280 5-10 Milliliter(s) PO Q6 PRN 01/26/2016 No Stop Date Active Kenalog 40 mg/mL ericka pension for injection RxNorm: 1454673 Milliliter(s) Inj 01/26/2016 01/26/2016 In active Zithromax Z-Juancarlos 250 mg tablet RxNorm: 456239 1 Tablet(s) PO daily 01/26/2016 01/30/2016 Inactive zpack Effexor XR 37.5 mg c apsule,extended release RxNorm: 214205 1 Capsule(s) PO daily 11/21/2015 11/20/2015 In active Effexor XR 37.5 mg c apsule,extended release RxNorm: 150558 1 Capsule(s) PO daily 11/21/2015 02/18/2016 In active Latuda 20 mg tablet RxNorm: 5175601 1 Tablet(s) PO daily 09/23/2015 04/01/2016 Inactive Pristiq 25 mg tablet ,extended release RxNorm: 1074355 1 Tablet(s) PO QAM 09/23/2015 11/20/2015 In active Cipro 500 mg tablet RxNorm: 216379 1 Tablet(s) PO BID 07/23/2015 07/29/2015 Inactive probiotic bid x7 days Levaquin 500 mg tablet RxNorm: 764307 1 Tablet(s) PO daily 07/07/2015 07/06/2015 Inactive Levaquin 500 mg tablet RxNorm: 357784 1 Tablet(s) PO daily 07/07/2015 07/13/2015 Inactive Depakote 125 mg tabl et,delayed release RxNorm: 5480790 2 Tablet(s) PO QPM 05/14/2015 08/11/2015 In active levothyroxine 88 mcg tablet RxNorm: 190061 1 Tablet(s) PO daily 05/05/2015 05/30/2016 Inactive hydroxyzine HCl 25 m g tablet RxNorm: 983299 1 Tablet(s) PO TID PRN 04/28/2015 No Stop Date Active PRN ITCHING escitalopram 20 mg t ablet RxNorm: 942902 1 Tablet(s) PO daily 03/18/2015 03/18/2015 Inactive [SAVINGS FOR UNINSURED PATIENTS -- BIN:0 [id number], PCN: ASPROD1, Group: [id number], ID# [id number], Process claim through [facility], for questions: . THIS IS NOT INSURANCE.] omeprazole 20 mg cap jacquelin,delayed release RxNorm: 433700 TAKE ONE CAPSULE BY M OUTH EVERY DAY 03/11/2015 01/04/2016 Inactive Diflucan 150 mg tablet RxNorm: 772447 1 Tablet(s) PO daily 11/18/2014 11/27/2014 Inactive Biofreeze (menthol) 4 % topical gel RxNorm: 1205537 1 Application TOP BI D 11/18/2014 11/27/2014 In active tetanus and diphther ia tox (PF) 5 Lf unit-2 Lf unit/0.5 mL IM susp RxNorm: 412690 1 injection IM 10/23/2014 10/23/2014 Inactive Augmentin 875 mg-125 mg tablet RxNorm: 888324 1 Tablet(s) PO BID 10/23/2014 11/01/2014 Inactive Kenalog 40 mg/mL ericka pension for injection RxNorm: 1057402 Milliliter(s) Inj 07/08/2014 07/08/2014 In active Zithromax Z-Juancarlos 250 mg tablet RxNorm: 193608 1 Tablet(s) PO daily 07/08/2014 07/12/2014 Inactive zpack escitalopram 20 mg t ablet RxNorm: 097160 1 Tablet(s) PO daily 07/01/2014 01/26/2015 Inactive [SAVINGS FOR UNINSURED PATIENTS -- BIN:0 [id number], PCN: ASPROD1, Group: [id number], ID# [id number], Process claim through [facility], for questions: . THIS IS NOT INSURANCE.] escitalopram 20 mg t ablet RxNorm: 623970 TAKE ONE TABLET BY [facility] ONCE A DAY 07/01/2014 12/27/2014 In active Cipro 500 mg tablet RxNorm: 606981 1 Tablet(s) PO BID 06/07/2014 06/13/2014 Inactive probiotic bid x7 days [SAVINGS FOR UNINSURED PATIENTS -- BIN:[id number], PCN: ASPROD1, Group: [id number], ID# [id number], Process claim through [facility], for questions: . THIS IS NOT INSURANCE.] Cipro 500 mg tablet RxNorm: 182395 1 Tablet(s) PO BID 06/07/2014 06/06/2014 Inactive probiotic bid x7 days Diflucan 150 mg tablet RxNorm: 990969 1 Tablet(s) PO daily 05/31/2014 05/30/2014 Inactive Diflucan 150 mg tablet RxNorm: 250102 1 Tablet(s) PO daily 05/31/2014 06/04/2014 Inactive [SAVINGS FOR UNINSURED PATIENTS -- BIN:0 68950, PCN: ASPROD1, Group: [id number], ID# [id number], Process claim through [facility], for questions: . THIS IS NOT INSURANCE.] Synthroid 75 mcg tablet RxNorm: 579965 Tablet(s) PO TAKE ONE TABLET BY MOUTH 04/25/2014 05/30/2014 Inactive PLEASE DO NOT SUBSTITUTE levothyroxine 88 mcg tablet RxNorm: 464656 1 Tablet(s) PO daily TAKE ONE TABLET BY MOUTH EVERY DAY 04/24/2014 04/24/2014 Inactive ketorolac 60 mg/2 mL intramuscular solution RxNorm: 763815 Milliliter(s) IM 04/18/2014 04/18/2014 In active nystatin-triamcinolo ne 100,000 unit/g-0.1 % topical cream RxNorm: 6067598 APPLY TOPICALLY TWICE A DAY 04/14/2014 05/11/2014 Inactive nystatin-triamcinolo ne 100,000 unit/g-0.1 % topical cream RxNorm: 4777219 APPLY TOPICALLY TWICE A DAY 04/14/2014 05/11/2014 Inactive Vitamin D3 5,000 uni t tablet RxNorm: 668892 ONE BY MOUTH EVERY DAY 04/08/2014 04/02/2015 Inactive lorazepam 0.5 mg tablet RxNorm: 050733 1 Tablet(s) PO QHS 03/05/2014 No Stop Date Active one q 8 hr prn, may take an extra dose at bedtime if nec omeprazole 20 mg cap jacquelin,delayed release RxNorm: 181090 TAKE ONE CAPSULE BY M OUTH EVERY DAY 03/04/2014 01/27/2015 Inactive spironolactone 25 mg tablet RxNorm: 284068 1 Tablet(s) PO TIW 10/23/2013 2016 Inactive Zyprexa 5 mg tablet RxNorm: 405294 1/2 Tablet(s) PO QHS 10/23/2013 03/04/2014 Inactive escitalopram 20 mg t ablet RxNorm: 144525 1 Tablet(s) PO daily 10/23/2013 05/20/2014 Inactive Depakote 125 mg tabl et,delayed release RxNorm: 5388683 2 Tablet(s) PO QPM 10/23/2013 04/20/2014 In active Diflucan 150 mg tablet RxNorm: 758034 1 Tablet(s) PO daily 10/11/2013 10/17/2013 Inactive nystatin-triamcinolo ne 100,000 unit/g-0.1 % topical cream RxNorm: 6459953 1 Application TOP BID 10/11/2013 10/24/2013 Inactive spironolactone 25 mg tablet RxNorm: 464757 1 Tablet(s) PO daily 09/17/2013 10/22/2013 Inactive Depakote 125 mg tabl et,delayed release RxNorm: 4604102 2 Tablet(s) PO TID 08/20/2013 10/22/[address] valencia increased escitalopram 20 mg t ablet RxNorm: 864823 1 Tablet(s) PO daily 07/10/2013 10/22/2013 Inactive Synthroid 75 mcg tablet RxNorm: 562835 Tablet(s) PO TAKE ONE TABLET BY MOUTH 04/17/2013 04/23/2014 Inactive Vitamin D3 5,000 uni t tablet RxNorm: 062629 1 Tablet(s) PO daily 03/28/2013 04/07/2014 Inactive Kenalog 40 mg/mL ericka pension for injection RxNorm: 4148611 Milliliter(s) Inj 03/20/2013 03/20/2013 In active omeprazole 20 mg cap jacquelin,delayed release RxNorm: 570889 Capsule(s) PO TAKE ON E CAPSULE BY MOUTH EVERY DAY 01/30/2013 08/19/2013 Inactive lorazepam 0.5 mg tablet RxNorm: 489219 1 Tablet(s) PO BID 01/22/2013 03/04/2014 Inactive one q 8 hr prn, may take an extra dose at bedtime if nec risperidone 0.5 mg t ablet RxNorm: 211609 1 Tablet(s) PO QHS 01/22/2013 08/19/2013 Inactive Silvadene 1 % Topica l Cream RxNorm: 967634 Cream TOP APPLY ON SK IN NEEDED 10/27/2012 01/21/2013 In active Cipro 500 mg tablet RxNorm: 750366 1 Tablet(s) PO BID 09/04/2012 09/03/2012 Inactive Cipro 500 mg tablet RxNorm: 606613 1 Tablet(s) PO BID 09/04/2012 09/10/2012 Inactive Rocephin 500 mg Solu tion for Injection RxNorm: 347628 1 Inj 08/22/2012 08/22/2012 Inactive Kenalog 40 mg/mL Ericka p for Injection RxNorm: 7201861 1 Milliliter(s) Inj 08/22/2012 08/22/2012 In active Rocephin 500 mg Solu tion for Injection RxNorm: 043928 1.5 Milliliter(s) Inj 05/22/2012 01/22/2013 In active Kenalog 40 mg/mL Ericka p for Injection RxNorm: 8515644 1 Milliliter(s) Inj 05/22/2012 05/22/2012 In active Synthroid 75 mcg tablet RxNorm: 780214 Tablet(s) PO 04/10/2012 04/16/2013 Inactive TAKE ONE TABLET BY MOUTH EVERY DAY name brand only Synthroid 75 mcg tablet RxNorm: 052642 Tablet(s) PO 04/09/2012 04/09/2012 Inactive TAKE ONE TABLET BY MOUTH EVERY DAY Vitamin D3 5,000 uni t tablet RxNorm: 437736 1 Tablet(s) PO daily 02/14/2012 03/09/2013 Inactive Vitamin D3 5,000 uni t tablet RxNorm: 668722 1 Tablet(s) PO daily 02/14/2012 02/13/2012 Inactive omeprazole 20 mg cap jacquelin,delayed release RxNorm: 180717 1 Capsule(s) PO daily 01/24/2012 01/29/2013 In active Vitamin D2 50,000 un it capsule RxNorm: 807061 1 Capsule(s) PO QW on e weekly x 3 months 12/07/2011 02/13/2012 Inactive one weekly x 3 months then 5000 units da natalie thereafter Synthroid 75 mcg tablet RxNorm: 784573 1 Tablet(s) PO daily 09/28/2011 03/25/2012 Inactive TAKE ONE TABLET BY MOUTH EVERY DAY ON AN EMPTY STOMACH omeprazole 20 mg cap jacquelin,delayed release RxNorm: 494814 1 Capsule(s) PO daily 07/20/2011 01/15/2012 In active Synthroid 75 mcg Tab RxNorm: 125395 Tablet(s) PO 2011 09/27/2011 Inactive TAKE ONE TABLET BY MOUTH EVERY DAY ON AN EMPTY STOMACH lorazepam 0.5 mg tablet RxNorm: 530500 1 Tablet(s) PO QDAY PRN 07/13/2011 01/21/2013 Inactive one q 8 hr prn, may take an extra dose a t bedtime if nec Synthroid 75 mcg Tab RxNorm: 613805 1 Tablet(s) PO daily 06/21/2011 07/18/2011 Inactive Silvadene 1 % Topica l Cream RxNorm: 669984 1 Application TOP PRN 06/01/2011 10/26/2012 Inactive dispense a small tube Depakote 125 mg tabl et,delayed release RxNorm: 3673724 3 Tablet(s) PO daily 06/01/2011 08/19/2013 In active lorazepam 0.5 mg Tab RxNorm: 187241 1 Tablet(s) PO PRN 06/01/2011 07/12/2011 Inactive one q 8 hr prn, may take an extra dose at bedtime if nec lorazepam 0.5 mg Tab RxNorm: 292201 Tablet(s) PO 04/20/2011 05/31/2011 Inactive one q 8 hr prn, may take an extra dose at bedtime if nec Influenza Virus Vacc ine 0.5 mL RxNorm: IM No Start Nathan e Active aspirin 81 mg Cap, D elayed Release RxNorm: 579491 1 Capsule(s) PO daily No Start Date Active omeprazole 20 mg cap jacquelin,delayed release RxNorm: 718198 1 Capsule(s) PO QHS No Start Date Active Lipitor 40 mg Tab RxNorm: 869243 1 Tablet(s) PO daily No Start Date Active Lumigan 0.01 % Eye D rops RxNorm: 3245760 Drop(s) OPH No Start Date Active Remeron 15 mg tablet RxNorm: 816636 1 Tablet(s) PO QHS No Start Date Active Lexapro 10 mg Tab RxNorm: 119955 1/2 Tablet(s) PO daily No Start Date 05/31/2011 Inactive pantoprazole 40 mg t ablet,delayed release RxNorm: 414338 1 Tablet(s) PO daily No Start Date 05/30/2014 Inactive Seroquel 100 mg tablet RxNorm: 709270 1 Tablet(s) PO QHS No Start Date 2016 Inactive Latuda 40 mg tablet RxNorm: 3605281 1 Tablet(s) PO daily No Start Date 09/22/2015 Inactive trifluoperazine 5 mg Tab RxNorm: 978847 1 Tablet(s) PO daily No Start Date 05/17/2011 Inactive Zithromax Z-Juancarlos 250 mg tablet RxNorm: 587181 Tablet(s) PO UD No Start Date 01/21/2013 Inactive trifluoperazine 5 mg Tab RxNorm: 351674 1 Tablet(s) PO QHS violette [place] No Start Date 08/13/2012 Inactive timolol 0.5 % Eye Drops RxNorm: 305801 1 Drop(s) OPH daily No Start Date 05/31/2011 Inactive each eye Lasix 20 mg Tab RxNorm: 309844 1/2 Tablet(s) PO QDAY PRN No Start Date 05/31/2011 Inactive lorazepam 0.5 mg Tab RxNorm: 242189 Tablet(s) PO No Start Date 04/19/2011 Inactive one q 8 hr prn, may take an extra dose at bedtime if nec Lexapro 5 mg tablet RxNorm: 282980 1 Tablet(s) PO daily No Start Date 07/09/2013 Inactive risperidone 0.5 mg t ablet RxNorm: 846349 1 Tablet(s) PO QHS No Start Date 01/21/2013 Inactive Lexapro 10 mg Tab RxNorm: 116813 1 Tablet(s) PO daily No Start Date 05/17/2011 Inactive Pristiq 50 mg tablet ,extended release RxNorm: 291102 1/2 Tablet(s) PO QAM No Start Date 09/22/2015 Inactive Ditropan XL 5 mg 24 hr Tab RxNorm: 005688 1 Tablet(s) PO daily No Start Date 01/28/2014 Inactive Vesicare 5 mg tablet RxNorm: 019610 1 Tablet(s) PO daily No Start Date 01/28/2014 Inactive oxcarbazepine 150 mg Tab RxNorm: 610456 1 Tablet(s) PO QHS No Start Date 08/10/2011 Inactive levothyroxine 88 mcg tablet RxNorm: 017149 oral No S tart Date 05/04/2015 Inactive Depakote 125 mg Tab RxNorm: 4101061 1 Tablet(s) PO daily No Start Date 05/31/2011 Inactive Zyprexa 5 mg tablet RxNorm: 083086 1 q am 2 at hs Tablet(s) PO No Start Date 10/22/2013 Inactive Calcium 500 + D (D3) 500 mg-125 unit Tab RxNorm: 854536 1 Tablet(s) PO BID No Start Date 05/31/2011 Inactive KCL 10 meq RxNorm: 1 PO daily No Start Date 05/31/2011 Inactive Stelazine 1 mg tablet RxNorm: 234920 1 Tablet(s) PO QAM No Start Date 02/12/2015 Inactive Mary 180 mg Tab RxNorm: 255933 1 Tablet(s) PO daily No Start Date 05/31/2011 Inactive Centrum Silver Ultra Women's Tab RxNorm: 1 Tablet(s) PO BID No Start Date 01/21/2013 Inactive Vagifem 10 mcg Vagin al Tab RxNorm: 355012 Tablet(s) VAG No Start Date 01/21/2013 Inactive 2-3x per week per dr kumar omeprazole 20 mg Cap , Delayed Release RxNorm: 843395 1 Capsule(s) PO daily No Start Date 2011 Inactive Vitamin D2 50,000 un it capsule RxNorm: 586567 1 Capsule(s) PO QW on e weekly x 3 months No Start Date 12/06/2011 Inactive one weekly x 3 months levothyroxine 75 mcg Cap RxNorm: 735020 1 Capsule(s) PO daily No Start Date 01/21/2013 Inactive Medication Administered Medication Codes Instruc tions Start Date Status Kenalog 40 mg/mL suspension for injection RxNorm: 3944069 Milliliter 01/26/2016 No longer Active tetanus and diphtheria tox (PF) 5 Lf uni t-2 Lf unit/0.5 mL IM susp RxNorm: 736103 1injection 10/23/2014 No longer Active Kenalog 40 mg/mL suspension for injection RxNorm: 7362001 Milliliter 07/08/2014 No longer Active ketorolac 60 mg/2 mL intramuscular solution RxNorm: 893103 Milliliter 04/18/2014 No longer Active Kenalog 40 mg/mL suspension for injection RxNorm: 2128637 Milliliter 03/20/2013 No longer Active Rocephin 500 mg Solution for Injection RxNorm: 334514 1 08/22/2012 No longer A ctive Kenalog 40 mg/mL Susp for Injection RxNorm: 8982145 1Milliliter 08/22/2012 N o longer Active Kenalog 40 mg/mL Susp for Injection RxNorm: 5166372 1Milliliter 05/22/2012 N o longer Active Immunizations [...] unspecified ICD-10: E03.9 ICD-9: 244.9 09/23/2015 Other long term care pharmacist (current) drug therapy ICD-10: Z79.899 ICD-9: V58.69 [...] IMPAIRED FASTING GLUCOSE ICD-9: 790.21 03/20/2013 DIETARY SURVEIL/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 NURSE ICD-9: V65.3 03/20/2013 ALLERGIC RHINITIS ICD-9: 477.9 [...] Pt states she had a very difficult [place] - Pt saw her psychiatrist 04/19/11 breast complaint 05/18/2011 Pt states she had a very difficult [place] - Pt saw her psychiatrist 04/19/11 Results Observation Observation Code Item Item Code Result Date Urine Culture Ucult Prel iminary NO Growth Day 1 09/11 Urine Culture Ucult Comp lete NO Growth Day 2 09/11 C A/B FLU 8978469 Influe nza A Scr Negative 08/09/2016 C A/B FLU 2115183 Influe nza B Scr Negative 08/09/2016 C RAP A SC 1544051 Strep A Negative 01/26/2016 Lipid Ord30 CHOL 189 mg/dL 01/01/2016 Lipid Ord30 HDL 46.0 mg/dl 01/01/2016 Lipid Ord30 TRIG 111 mg/dL 01/01/2016 Lipid Ord30 LDL 121 mg/dL 01/01/2016 Lipid Ord30 C/HDL 4.1 Ratio 01/01/2016 Urine Culture Ucult Prel iminary NO Growth Day 1 12/26 Urine Culture Ucult Comp lete NO Growth Day 2 12/26 Valproic Acid Xco909 BHARATH PROIC 30.0 ug/ml 09/23/2015 Cbc With [...] 37.6 % 09/23/2015 Cbc With Differential Ord2 Crowley% 9.7 % 09/23/2015 Cbc With Differential Ord2 MCH 27.9 pg 09/23/2015 Cbc With Differential Ord2 MCHC 32.5 pg 09/23/2015 Cbc With Differential Ord2 Eos% 3.1 % 09/23/2015 Cbc With Differential Ord2 Baso% 0.4 % 09/23/2015 Cbc With Differential Ord2 PLT 254 K/ul 09/23/2015 Cbc With Differential Ord2 Neut ABS# 3.83 K/ul 09/23/2015 Cbc With Differential Ord2 RDW 15.6 % 09/23/2015 Cbc With Differential Ord2 Lymph ABS# 2.92 K/ul 09/23/2015 Cbc With Differential Ord2 [place] ABS# 0.8 K/ul 09/23/2015 Cbc With Differential Ord2 Eos ABS# 0.2 K/ul 09/23/2015 Cbc With Differential Ord2 Baso ABS# 0.0 K/ul 09/23/2015 Cbc With Differential Ord2 New Analyzer Notice Please note new ref ranges s tarting 05-28-2015 due to implemntation of new five part differential hematolgy analyzer. 09/23/2015 Comp Metabolic Rrp574 NA 138 mEq/L 09/23/2015 Comp Metabolic Cti988 K 4.0 mEq/L 09/23/2015 Comp Metabolic Arl626 CL 105 mEq/L 09/23/2015 Comp Metabolic Cvl738 CO2 26.0 mEq/L 09/23/2015 Comp Metabolic Wlw038 AN ION GAP 11 09/23/2015 Comp Metabolic Qja456 GL UCOSE 87 mg/dL 09/23/2015 Comp Metabolic Adm068 Cr eat 0.6 mg/dL 09/23/2015 Comp Metabolic Amt111 eG FR 95 ml/min/1.73m2 09/22 Comp Metabolic Fja330 BUN 10 mg/dL 09/23/2015 Comp Metabolic Udn930 B/ C Ratio 15.6 Ratio 09/23/2015 Comp Metabolic Cyq838 CA LCIUM 8.6 mg/dL 09/23/2015 Comp Metabolic Ics769 AL K PHOS 104 U/L 09/23/2015 Comp Metabolic Bpp901 T(SGOT) 17 U/L 09/23/2015 Comp Metabolic Evf290 AL T(SGPT) 14 U/L 09/23/2015 Comp Metabolic Wnu378 BI LI T 0.3 mg/dL 09/23/2015 Comp Metabolic Gmy452 AL BUMIN 3.8 g/dL 09/23/2015 Comp Metabolic Rut013 TP RO 6.3 g/dL 09/23/2015 Comp Metabolic Xbq839 GL OB 2.5 g/dL 09/23/2015 Comp Metabolic Dhi589 A/ G Ratio 1.5 Ratio 09/23/2015 Comp Metabolic Dba217 Os mo 274 mOsmo 09/23/2015 Free T4 Zah684 FREE T4 1.05 ng/dL 09/23/2015 Tsh Ord6 hTSH II 1.84 uIU/mL 09/23/2015 Culture Urine [id number] URI NE CULTURE SEE NOTES 07/10/2015 Culture Urine [id number] Con tinued Results 07/10/2015 Urine Culture Ucult Comp lete >100,000 col/ml aerobic grow th sent to ref lab 07/08/2015 Comp Metabolic Kwl953 NA 140 mEq/L 06/24/2015 Comp Metabolic Anw732 K 4.3 mEq/L 06/24/2015 Comp Metabolic Mfe950 CL 103 mEq/L 06/24/2015 Comp Metabolic Iek681 CO2 32.0 mEq/L 06/24/2015 Comp Metabolic Sjl869 AN ION GAP 9 06/24/2015 Comp Metabolic Fkp128 GL UCOSE 87 mg/dL 06/24/2015 Comp Metabolic Cqm448 Cr eat 0.8 mg/dL 06/24/2015 Comp Metabolic Meh130 eG FR 76 ml/min/1.73m2 06/24 Comp Metabolic Xpy962 BUN 10 mg/dL 06/24/2015 Comp Metabolic Uqo114 B/ C Ratio 12.8 Ratio 06/24/2015 Comp Metabolic Igr207 CA LCIUM 9.0 mg/dL 06/24/2015 Comp Metabolic Jhp029 AL K PHOS 93 U/L 06/24/2015 Comp Metabolic Otb035 T(SGOT) 16 U/L 06/24/2015 Comp Metabolic Soq398 AL T(SGPT) 10 U/L 06/24/2015 Comp Metabolic Dai858 BI LI T 0.4 mg/dL 06/24/2015 Comp Metabolic Ykh788 AL BUMIN 3.8 g/dL 06/24/2015 Comp Metabolic Ixh964 TP RO 6.2 g/dL 06/24/2015 Comp Metabolic Nmz029 GL OB 2.4 g/dL 06/24/2015 Comp Metabolic Pqq122 A/ G Ratio 1.5 Ratio 06/24/2015 Comp Metabolic Grp757 Os mo 278 mOsmo 06/24/2015 Cbc With Differential Ord2 WBC 8.23 K/ul 06/24/2015 Cbc With Differential Ord2 RBC 5.11 M/ul 06/24/2015 Cbc With Differential Ord2 HGB 14.5 g/dl 06/24/2015 Cbc With Differential Ord2 Neut% 41.6 % 06/24/2015 Cbc With Differential Ord2 HCT 44.6 % 06/24/2015 Cbc With Differential Ord2 Lymph% 42.6 % 06/24/2015 Cbc With Differential Ord2 MCV 87.3 fl 06/24/2015 Cbc With Differential Ord2 Crow[place]% 10.0 % 06/24/2015 Cbc With Differential Ord2 MCH 28.4 pg 06/24/2015 Cbc With Differential Ord2 Eos% 4.9 % 06/24/2015 Cbc With Differential Ord2 MCHC 32.5 pg 06/24/2015 Cbc With Differential Ord2 Baso% 0.9 % 06/24/2015 Cbc With Differential Ord2 PLT 269 K/ul 06/24/2015 Cbc With Differential Ord2 Neut ABS# 3.43 K/ul 06/24/2015 Cbc With Differential Ord2 RDW 15.4 % 06/24/2015 Cbc With Differential Ord2 Lymph ABS# 3.51 K/ul 06/24/2015 Cbc With Differential Ord2 [place] ABS# 0.8 K/ul 06/24/2015 Cbc With Differential Ord2 Eos ABS# 0.4 K/ul 06/24/2015 Cbc With Differential Ord2 Baso ABS# 0.1 K/ul 06/24/2015 Cbc With Differential Ord2 New Analyzer Notice Please note new ref ranges s tarting 05-28-2015 due to implemntation of new five part differential hematolgy analyzer. 06/24/2015 Free T4 Snj330 FREE T4 0.98 ng/dL 06/24/2015 Tsh Ord6 hTSH II 3.48 uIU/mL 06/24/2015 Lipid Ord30 CHOL 158 mg/dL 06/24/2015 Lipid Ord30 HDL 45.0 mg/dl 06/24/2015 Lipid Ord30 TRIG 129 mg/dL 06/24/2015 Lipid Ord30 LDL 87 mg/dL 06/24/2015 Lipid Ord30 C/HDL 3.5 Ratio 06/24/2015 Valproic Acid Rlw266 BHARATH PROIC 42.0 ug/ml 06/24/2015 TSH [id number] TSH 1.199 uIU/ML 08/20/2013 FREE T4 7199482 FREE T4 1.06 NG/DL 08/20/2013 URINALYSIS NONAUTO W/O SCOPE 57825 Specific [place] 1.010 DateTime(Free Text in [employer]) URINALYSIS NONAUTO W/O SCOPE 50269 PH 6.0 DateTime(Free Jayy t in [employer]) URINALYSIS NONAUTO W/O SCOPE 03870 GLUCOSE neg DateTime(Free Jayy t in [employer]) URINALYSIS NONAUTO W/O SCOPE 59754 Protein neg DateTime(Free Jayy t in [employer]) URINALYSIS NONAUTO W/O SCOPE 88297 Blood 1+ DateTime(Free Text in [employer]) URINALYSIS NONAUTO W/O SCOPE 08199 Bilirubin neg DateTime(Free Jayy t in [employer]) URINALYSIS NONAUTO W/O SCOPE 49886 Ketones neg DateTime(Free Jayy t in [employer]) URINALYSIS NONAUTO W/O SCOPE 07538 Urobilinogen neg DateTime(Free Text in [employer]) URINALYSIS NONAUTO W/O SCOPE 43735 Nitrite neg DateTime(Free Jayy t in [employer]) URINALYSIS NONAUTO W/O SCOPE 30073 Leukocytes 1+ DateTime(Free Text in [employer]) URINALYSIS NONAUTO W/O SCOPE 44106 Specific [place] 1.005 DateTime(Free Text in [employer]) URINALYSIS NONAUTO W/O SCOPE 33773 PH 7 DateTime(Free Text in [employer]) URINALYSIS NONAUTO W/O SCOPE 11227 GLUCOSE neg DateTime(Free Jayy t in [employer]) URINALYSIS NONAUTO W/O SCOPE 93471 Protein neg DateTime(Free Jayy t in [employer]) URINALYSIS NONAUTO W/O SCOPE 26797 Blood trace DateTime(Free T ext in ) URINALYSIS NONAUTO W/O SCOPE 23222 Bilirubin neg DateTime(Free Jayy t in [employer]) URINALYSIS NONAUTO W/O SCOPE 48224 Ketones neg DateTime(Free Jayy t in [employer]) URINALYSIS NONAUTO W/O SCOPE 78308 Urobilinogen neg DateTime(Free Text in [employer]) URINALYSIS NONAUTO W/O SCOPE 49386 Nitrite neg DateTime(Free Jayy t in [employer]) URINALYSIS NONAUTO W/O SCOPE 08903 Leukocytes neg DateTime(Free Text in ) UA 96391 Specific [place] 1.005 DateTime(Free Text in [employer] ) UA 24407 PH 6 DateTime(Free Text in ) UA 63885 GLUCOSE neg DateTime(Free Text in Apr ) UA 07076 Protein neg DateTime(Free Text in [employer] ) UA 27485 Blood trace DateTime(Free Text in [employer] ) UA 59370 Bilirubin neg DateTime(Free Text in [employer] ) UA [address] Ketones neg DateTime(Free Text in Aprima ) UA 28787 Urobilinogen 0.2 DateTime(Free Text in ) UA 21737 Nitrite neg DateTime(Free Text in ) UA 57948 Leukocytes neg DateTime(Free Text in Apr ) Review of Systems System Result Effective [...] Genitourinary/Nephrology No urinary incontinence 07/20/2016 Psychiatric anxiety 03/11/2016 Psychiatric depression 0 07/20/2016 Psychiatric disturbances of [...] No alteration of consciousness 03/18/2015 Psychiatric anxiety 11/0 07/2014 Psychiatric depression 1 05/18/2014 Endocrine No [...] rash 07/2011 Dermatologic No sores Psychiatric anxiety /0 07/2011 Psychiatric depression 0 05/18/2011 Physical Exam [...] developed 03/07/2013 None Full Exam - General 1993 [...] Date URINALYSIS NONAUTO W /O SCOPE CPT-4: 29629Ndhrcnk 11/10/2016 ADMIN INFLUENZA VIRU S VAC CPT-4: R5722Ibzwbai 02/20/2016 FLU VACC 4 BHARATH 3 YRS PLUS IM Formatting Model/CDA Sections, Assigned to/Juli Cerrato SNOMED CT: [id number] CPT-4: 98802Damjbaw 02/20/2016 TRIAMCINOLONE ACET I [place] NOS CPT-4: X1288Diwkbrs 01/26/2016 URINALYSIS NONAUTO W /O SCOPE CPT-4: 13867Nolmaqw 09/23/2015 URINALYSIS NONAUTO W /O SCOPE CPT-4: 67033Fcyjeze 07/07/2015 ADMIN INFLUENZA VIRU S VAC Formatting Model/CDA Sections, Assigned to CPT-4: K7438Mdpuffy 02/13/2015 FLU VACC 4 BHARATH 3 YRS PLUS IM Formatting Model/CDA Sections, Assigned to SNOMED CT: 92761728 CPT-4: 21899Lhzkftb 02/13/2015 TENIVAC TD VACCINE N O PRSRV 7/> IM Assigned to CPT-4: 31634Myvendh 10/23/2014 URINALYSIS NONAUTO W /O SCOPE CPT-4: 88051Futspmi 10/23/2014 OCCULT BLOOD FECES CPT-4: 10629Douyrtv 10/08/2014 PPPS, SUBSEQ VISIT CPT-4: G6758Mnocrjt 10/02/2014 TRIAMCINOLONE ACET I [place] NOS CPT-4: U8164Opqnaks 07/08/2014 URINALYSIS NONAUTO W /O SCOPE CPT-4: 48762Wwxvdvj 06/03/2014 THER/PROPH/DIAG INJ SC/IM CPT-4: 01698Uevotdm 04/18/2014 KETOROLAC TROMETHAMI NE INJ CPT-4: P2311Yroyopk 04/18/2014 ADMIN INFLUENZA VIRU S VAC CPT-4: U0278Jmskdwp 01/29/2014 ADMIN PNEUMOCOCCAL V ACCINE Assigned to/Juli Cerrato CT: 62580499 CPT-4: W6523Qkdocnj 01/29/2014 FLU VAC NO PRSV 4 VA L 3 YRS+ CPT-4: 09740Ifhsplb 01/29/2014 URINALYSIS NONAUTO W /O SCOPE CPT-4: 46086Zbnienq 11/12/2013 ROUTINE VENIPUNCTURE CPT-4: 35258Wjxzfvf 08/20/2013 TRIAMCINOLONE ACET I [place] NOS CPT-4: I2401Hrnlqbz 03/20/2013 THER/PROPH/DIAG INJ SC/IM CPT-4: 43746Hqvhdmt 03/20/2013 URINALYSIS NONAUTO W /O SCOPE CPT-4: 21823Ergrrgm 03/01/2013 URINALYSIS NONAUTO W /O SCOPE CPT-4: 66573Fnbewmp 09/04/2012 TRIAMCINOLONE ACET I [place] NOS CPT-4: O9609Tsunpiw 08/22/2012 ROCEPHIN, PER 250 MG CPT-4: N4121Zmtnaew 08/22/2012 TRIAMCINOLONE ACET I [place] NOS CPT-4: D6592Yqifzpv 05/22/2012 THER/PROPH/DIAG INJ SC/IM CPT-4: 21758Xvsencm 05/22/2012 ROCEPHIN, PER 250 MG CPT-4: L6173Zjwjmgl 05/22/2012 PRESCRIP TRANSMIT A ERX SY CPT-4: V5630Aelnxvc 05/22/2012 ADMIN INFLUENZA VIRU S VAC CPT-4: F7139Bxazdul 02/23/2012 FLULAVAL VACC, 3 YRS & >, IM CPT-4: T5589Gkehjnc 02/23/2012 PRESCRIP TRANSMIT A ERX SY CPT-4: I4212Wwizsjc 06/01/2011 Vital Signs Date Vital 10/19/2016 Blood Pressure 1: 126/64 Code: 8480-6 Heart Rate 1: 93 bpm Height: 5' SpO2: 97% Weight: 08/09/2016 Blood Pressure 1: 116/68 Code: 8480-6 BMI: 40.2 Code: 89597-3 Heart Rate 1: 98 bpm Height: 5' SpO2: 97% Temperature: 37.5 (C ) / 99.5 (F) Weight: 206 lbs 07/20/2016 Blood Pressure 1: 126/74 Code: 8480-6 BMI: 40.2 Code: 80388-8 Heart Rate 1: 94 bpm Height: 5' SpO2: 95% Weight: 206 lbs 05/27/2016 Blood Pressure 1: 136/76 Code: 8480-6 BMI: 39.1 Code: 58081-2 Heart Rate 1: 95 bpm Height: 5' SpO2: 98% Weight: 200 lbs 04/29/2016 Blood Pressure 1: 128/76 Code: 8480-6 Heart Rate 1: 72 bpm Height: SpO2: 96% Weight: 04/02/2016 Blood Pressure 1: 138/88 Code: 8480-6 BMI: 38.5 Code: 00653-0 Heart Rate 1: 88 bpm Height: 5' SpO2: 96% Weight: 197 lbs 03/18/2016 Blood Pressure 1: 148/88 Code: 8480-6 BMI: 38.5 Code: 69618-0 Heart Rate 1: 66 bpm Height: 5' SpO2: 98% Weight: 197 lbs 01/26/2016 BMI: 39.5 Code: 64334-6 Height: 5' Weight: 202 lbs 01/01/2016 Blood Pressure 1: 120/80 Code: 8480-6 BMI: 40.0 Code: 04116-6 Heart Rate 1: 86 bpm Height: 5' SpO2: 94% Weight: 205 lbs 12/25/2015 Blood Pressure 1: 138/80 Code: 8480-6 BMI: 40.0 Code: 12743-7 Height: 5' Weight: 205 lbs 12/08/2015 Blood Pressure 1: 122/72 Code: 8480-6 Heart Rate 1: 100 bpm Height: 5' SpO2: 98% 09/23/2015 Blood Pressure 1: 130/82 Code: 8480-6 BMI: 40.2 Code: 36046-6 Heart Rate 1: 77 bpm Height: 5' SpO2: 97% Weight: 206 lbs 06/19/2015 Blood Pressure 1: 128/80 Code: 8480-6 BMI: 40.8 Code: 18624-5 Heart Rate 1: 80 bpm Height: 5' SpO2: 94% Weight: 209 lbs 05/19/2015 Blood Pressure 1: 12878 Code: 8480-6 BMI: 41.0 Code: 83031-1 Heart Rate 1: 103 bpm Height: 5' SpO2: 97% Weight: 210 lbs 04/28/2015 Blood Pressure 1: 128/76 Code: 8480-6 BMI: 41.4 Code: 77901-9 Heart Rate 1: 72 bpm Height: 5' Weight: 212 lbs 03/18/2015 Blood Pressure 1: 128/78 Code: 8480-6 BMI: 41.6 Code: 75772-1 Heart Rate 1: 74 bpm Height: 5' SpO2: 97% Weight: 213 lbs 02/27/2015 Blood Pressure 1: 128/70 Code: 8480-6 BMI: 41.2 Code: 00921-7 Heart Rate 1: 74 bpm Height: 5' SpO2: 95% Weight: 211 lbs 02/13/2015 Blood Pressure 1: 148/80 Code: 8480-6 BMI: 41.2 Code: 30560-3 Heart Rate 1: 90 bpm Height: 5' SpO2: 95% Weight: 211 lbs 11/18/2014 Blood Pressure 1: 124/60 Code: 8480-6 BMI: 40.8 Code: 39827-8 Heart Rate 1: 75 bpm Height: 5' SpO2: 97% Weight: 209 lbs 10/23/2014 Blood Pressure 1: 118/70 Code: 8480-6 BMI: 43.3 Code: 93980-5 Heart Rate 1: 78 bpm Height: 4'10" SpO2: 96% Temperature: 36.5 (C ) / 97.7 (F) Weight: 207 lbs 10/02/2014 Blood Pressure 1: 118/78 Code: 8480-6 BMI: 42.5 Code: 92947-7 Heart Rate 1: 77 bpm Height: 4'10" SpO2: 97% Waist Measure (cm): 107 cm Weight: 207 lbs 09/25/2014 Blood Pressure 1: 140/78 Code: 8480-6 Blood Pressure 2: 140/80 Code: 8480-6 09/23/2014 Blood Pressure 1: 106/62 Code: 8480-6 BMI: 42.9 Code: 45015-1 Heart Rate 1: 99 bpm Height: 4'10" SpO2: 97% Weight: 209 lbs 07/08/2014 Blood Pressure 1: 136/82 Code: 8480-6 BMI: 43.6 Code: 74331-5 Heart Rate 1: 72 bpm Height: 4'10" SpO2: 96% Temperature: 37.0 (C ) / 98.6 (F) Weight: 212 lbs 05/31/2014 Blood Pressure 1: 140/88 Code: 8480-6 BMI: 41.1 Code: 24488-4 Heart Rate 1: 92 bpm Height: 4'10" Weight: 200 lbs 04/18/2014 Blood Pressure 1: 132/78 Code: 8480-6 BMI: 41.9 Code: 99186-4 Heart Rate 1: 80 bpm Height: 4'10" Weight: 204 lbs 03/05/2014 Blood Pressure 1: 128/80 Code: 8480-6 BMI: 41.3 Code: 11890-5 Heart Rate 1: 60 bpm Height: 4'10" SpO2: 96% Weight: 201 lbs 01/29/2014 Blood Pressure 1: 142/88 Code: 8480-6 BMI: 41.5 Code: 61351-3 Heart Rate 1: 80 bpm Height: 4'10" Weight: 202 lbs 10/23/2013 Blood Pressure 1: 110/56 Code: 8480-6 BMI: 41.5 Code: 88212-9 Heart Rate 1: 76 bpm Height: 4'10" Weight: 202 lbs 10/11/2013 Blood Pressure 1: 124/74 Code: 8480-6 BMI: 41.5 Code: 04101-1 Heart Rate 1: 76 bpm Height: 4'10" Weight: 202 lbs 09/17/2013 Blood Pressure 1: 140/84 Code: 8480-6 Heart Rate 1: 80 bpm Weight: 203 lbs 08/27/2013 Blood Pressure 1: 124/80 Code: 8480-6 Heart Rate 1: 72 bpm Weight: 08/20/2013 Blood Pressure 1: 110/50 Code: 8480-6 BMI: 40.3 Code: 90413-8 Heart Rate 1: 72 bpm Height: 4'10" Weight: 196 lbs 07/10/2013 Blood Pressure 1: 110/56 Code: 8480-6 Heart Rate 1: 82 bpm SpO2: 95% Weight: 03/20/2013 Blood Pressure 1: 158/80 Code: 8480-6 Heart Rate 1: 72 bpm Temperature: 37.1 (C) / 98.8 (F) Weight: 189 lbs 03/07/2013 Blood Pressure 1: 108/66 Code: 8480-6 BMI: 38.8 Code: 99439-0 Heart Rate 1: 76 bpm Height: 4'10" Weight: 189 lbs 01/22/2013 Blood Pressure 1: 110/68 Code: 8480-6 BMI: 38.8 Code: 97569-4 Heart Rate 1: 76 bpm Height: 4'10" Weight: 189 lbs 08/22/2012 Blood Pressure 1: 126/68 Code: 8480-6 BMI: 37.0 Code: 00872-4 Heart Rate 1: 76 bpm Height: 4'10" Temperature: 36.7 (C ) / 98.0 (F) Weight: 180 lbs 08/14/2012 Blood Pressure 1: 106/64 Code: 8480-6 BMI: 36.6 Code: 60482-6 Heart Rate 1: 72 bpm Height: 4'10" Weight: 178 lbs 05/22/2012 Blood Pressure 1: 124/72 Code: 8480-6 Heart Rate 1: 80 bpm Temperature: 36.4 (C) / 97.6 (F) Weight: 185 lbs 04/17/2012 Blood Pressure 1: 120/66 Code: 8480-6 BMI: 37.0 Code: 63895-1 Heart Rate 1: 65 bpm Height: 4'10" SpO2: 98% Weight: 180 lbs 12/01/2011 Blood Pressure 1: 122/58 Code: 8480-6 Heart Rate 1: 76 bpm Respiratory Rate: 24 bpm Weight: 175 lbs 08/11/2011 Blood Pressure 1: 98/44 Code: 8480-6 BMI: 34.1 Code: 73608-1 Heart Rate 1: 86 bpm Height: 4'10" Respiratory Rate: 16 bpm Weight: 166 lbs 06/01/2011 Blood Pressure 1: 104/62 Code: 8480-6 BMI: 34.8 Code: 31798-8 Heart Rate 1: 72 bpm Height: 4'10" Respiratory Rate: 16 bpm Weight: 169 lbs 8 oz 05/18/2011 Blood Pressure 1: 130/66 Code: 8480-6 BMI: 34.8 Code: 59342-0 Heart Rate 1: 64 bpm Height: 4'11" [...] Symptom _ weeks ago 10/19/2016 fell on 15 and broke ca lcaneous heel pain Limitation [...] None Hospital Follow Up _ Oth er: [facility] 02/13/2015 None back pain Quality dull 11/18/2014 [...] days ago 08/27/2013 fell on [facility] pain Pertinent Findings stiffness 08/27/2013 None [...] Hospital Follow Up _ Oth er: from [facility] 08/20/2013 started on remeron and zyprexa [...] t states that since her stay in [facility] - she is much better, [...] Exercise no exercise 03/20/2013 None hypothyroid Quality direct response consultant kellie 03/07/2013 None hypothyroid Severity mil d [...] Findings Denies edema 03/07/2013 None hypothyroid Quality direct response consultant kellie 01/22/2013 None hypothyroid Severity mil d [...] known all ergens 08/22/2012 None hypothyroid Quality direct response consultant kellie 08/14/2012 None hypothyroid Severity mil d [...] decreased energy level 05/22/2012 None hypothyroid Quality direct response consultant kellie 04/17/2012 None hypothyroid Severity mil d [...] Pertinent Findings stiffness 12/01/2011 None hypothyroid Quality direct response consultant kellie 08/11/2011 None hypothyroid Severity mil d [...] Encounters Encounter Performer Loca tion Codes Date ([id number]) 83774 EST. P ATIENT, LEVEL III Diagnosis: Unsteadiness on feet[ICD10: R26.81] Diagnosis: Unspecified fracture of left calcaneus, initial encounter for closed fracture[ICD10: S92.002A] Diagnosis: Allergic rhinitis due to pollen[ICD10: J30.1] [facility] CPT-4: 27097 10/19/2016 ([id number]) 38090 EST. P ATIENT, LEVEL III Diagnosis: Cough[ICD10: R05] Diagnosis: Fever, unspecified[ICD10: R50.9] Diagnosis: Acute recurrent maxillary sinusitis[ICD10: J01.01] Michelle Littlejohn MD, [facility] CPT-4: 95080 08/09/2016 ([id number]) 75567 EST. P ATIENT, LEVEL III Diagnosis: Essential (primary) hypertension[ICD10: I10] Diagnosis: Allergic rhinitis due to pollen[ICD10: J30.1] Diagnosis: Bipolar disorder, current episode depressed, moderate[ICD10: F31.32] Michelle Littlejohn MD, [facility] CPT-4: 59951 07/20/2016 ([id number]) 73244 EST. P ATIENT, LEVEL III Diagnosis: Cough[ICD10: R05] Diagnosis: Bipolar disorder, current episode depressed, moderate[ICD10: F31.32] Diagnosis: Acute upper respiratory infection, unspecified[ICD10: J06.9] Michelle Littlejohn MD, [facility] CPT-4: 70354 05/27/2016 ([id number]) 99715 EST. P ATIENT, LEVEL III Diagnosis: Bipolar disorder, current episode manic without psychotic features, moderate[ICD10: F31.12] Diagnosis: Essential (primary) hypertension[ICD10: I10] Michelle Littlejohn MD, [facility] CPT-4: 92264 04/29/2016 ([id number]) 32382 EST. P ATIENT, LEVEL III Diagnosis: Bipolar disorder, current episode depressed, moderate[ICD10: F31.32] Michelle Littlejohn MD, [facility] CPT-4: 56266 04/02/2016 ([id number]) 98734 EST. P ATIENT, LEVEL IV Diagnosis: Bipolar disorder, current episode manic without psychotic features, moderate[ICD10: F31.12] Diagnosis: Essential (primary) hypertension[ICD10: I10] Michelle Littlejohn MD, [facility] CPT-4: 15392 03/18/2016 ([id number]) 51215 EST. P ATIENT, LEVEL III Diagnosis: Acute laryngopharyngitis[ICD10: J06.0] Diagnosis: Cough[ICD10: R05] Diagnosis: Allergic rhinitis due to pollen[ICD10: J30.1] Michelle Littlejohn MD, [facility] CPT-4: 61649 01/26/2016 ([id number]) Miscellaneou s no charge Diagnosis: Other seborrheic keratosis[ICD10: L82.1] Michelle Littlejohn MD, [facility] CPT-4: 23506 01/01/2016 ([id number]) 19022 EST. P ATIENT, LEVEL III Diagnosis: Essential (primary) hypertension[ICD10: I10] Diagnosis: Mixed hyperlipidemia[ICD10: E78.2] Diagnosis: Other obesity due to excess calories[ICD10: E66.09] Diagnosis: Frequency of micturition[ICD10: R35.0] Michelle Littlejohn MD, [facility] CPT-4: 81018 12/25/2015 ([id number]) 86215 EST. P ATIENT, LEVEL IV Diagnosis: Gastro-esophageal reflux disease without esophagitis[ICD10: K21.9] Diagnosis: Essential (primary) hypertension[ICD10: I10] Diagnosis: Generalized anxiety disorder[ICD10: F41.1] Michelle Littlejohn MD, [facility] CPT-4: 18305 12/08/2015 ([id number]) 88174 EST. P ATIENT, LEVEL IV Diagnosis: Bipolar disorder, current episode depressed, moderate[ICD10: F31.32] Diagnosis: Essential (primary) hypertension[ICD10: I10] Diagnosis: Hypothyroidism, unspecified[ICD10: E03.9] Diagnosis: Allergic rhinitis due to pollen[ICD10: J30.1] Diagnosis: Dysuria[ICD10: R30.0] Michelle Littlejohn MD, [facility] CPT-4: 10650 09/23/2015 ([id number]) 55678 EST. P ATIENT, LEVEL III Diagnosis: Essential (primary) hypertension[ICD10: I10] Diagnosis: Hypothyroidism, unspecified[ICD10: E03.9] Diagnosis: Mixed hyperlipidemia[ICD10: E78.2] Diagnosis: Bipolar disorder, current episode depressed, moderate[ICD10: F31.32] Michelle Littlejohn MD, [facility] CPT-4: 61720 06/19/2015 ([id number]) 63492 EST. P ATIENT, LEVEL III Diagnosis: Essential (primary) hypertension[ICD10: I10] Diagnosis: Major depressive disorder, single episode, unspecified[ICD10: F32.9] Michelle Littlejohn MD, [facility] CPT-4: 00120 05/19/2015 ([id number]) 09479 EST. P ATIENT, LEVEL III Diagnosis: Rash and other nonspecific skin eruption[ICD10: R21] Jodie Littlejohn MD, [facility] CPT-4: 22640 04/28/2015 ([id number]) 35570 EST. P ATIENT, LEVEL III Diagnosis: Essential (primary) hypertension[ICD10: I10] Diagnosis: Bipolar disorder, current episode depressed, moderate[ICD10: F31.32] Michelle Littlejohn MD, [facility] CPT-4: 69131 03/18/2015 ([id number]) 47635 EST. P ATIENT, LEVEL II Diagnosis: Other seborrheic keratosis[ICD10: L82.1] Michelle Littlejohn MD, [facility] CPT-4: 14232 02/27/2015 ([id number]) 11602 EST. P ATIENT, LEVEL IV Diagnosis: Hypothyroidism, unspecified[ICD10: E03.9] Diagnosis: Bipolar disorder, current episode depressed, moderate[ICD10: F31.32] Michelle Littlejohn MD, [facility] CPT-4: 67889 02/13/2015 ([id number]) 98184 EST. P ATIENT, LEVEL III Diagnosis: Yeast infection involving the vagina and surrounding area[ICD9: 112.1] Diagnosis: Back pain[ICD9: 724.5] Diagnosis: Muscle strain[ICD9: 848.9] Katerin Littlejohn MD, [facility] CPT-4: 37279 11/18/2014 ([id number]) 45683 EST. P ATIENT, LEVEL IV Diagnosis: Dog bite[ICD9: 879.8] Diagnosis: CELLULITIS OF ARM[ICD9: 682.3] Diagnosis: DYSURIA[ICD9: 788.1] Katerin Littlejohn MD, [facility] CPT-4: 73928 10/23/2014 ([id number]) Maxine andrew no charge Diagnosis: ESSENTIAL HYPERTENSION[ICD9: 401.9] Jodie Littlejohn MD, [facility] CPT- 4: 45043 09/25/2014 ([id number]) 11185 EST. P ATIENT, LEVEL IV Diagnosis: Hypotension[ICD9: 458.9] Diagnosis: DIZZINESS AND GIDDINESS[ICD9: 780.4] Diagnosis: HYPOTHYROIDISM[ICD9: 244.9] Michelle Littlejohn MD, [facility] CPT- 4: 29579 09/23/2014 ([id number]) 54918 EST. P ATIENT, LEVEL III Diagnosis: ACUTE URI[ICD9: 465.9] Diagnosis: COUGH[ICD9: 786.2] Diagnosis: EDEMA[ICD9: 782.3] Michelle Littlejohn MD, [facility] CPT-4: 87010 07/08/2014 ([id number]) 69036 EST. P ATIENT, LEVEL IV Diagnosis: ESSENTIAL HYPERTENSION[ICD9: 401.9] Diagnosis: HYPOTHYROIDISM[ICD9: 244.9] Diagnosis: Dysuria[ICD9: 788.1] Jodie Littlejohn MD, [facility] CPT-4: 76299 05/31/2014 ([id number]) 83371 EST. P ATIENT, LEVEL III Diagnosis: Back pain[ICD9: 724.5] Jodie Littlejohn MD, [facility] CPT-4: 82246 04/18/2014 ([id number]) 38917 EST. P ATIENT, LEVEL IV Diagnosis: Back pain[ICD9: 724.5] Diagnosis: Scab[ICD9: 782.8] Diagnosis: BIPOLAR AFFECTIVE, MANIC, UNSPEC[ICD9: 296.40] Jodie Littlejohn MD, [facility] CPT-4: 80865 03/05/2014 ([id number]) 19417 EST. P ATIENT, LEVEL III Diagnosis: ESSENTIAL HYPERTENSION[ICD9: 401.9] Jodie Littlejohn MD, [facility] CPT- 4: 89512 01/29/2014 ([id number]) 71377 EST. P ATIENT, LEVEL IV Diagnosis: ESSENTIAL HYPERTENSION[SNOMED: 92515430] Diagnosis: EDEMA[ICD9: 782.3] Diagnosis: DEPRESSIVE DISORDER NEC[ICD9: 311] Jodie Littlejohn MD, [facility] CPT- 4: 72896 10/23/2013 74934 EST. PATIENT, LEVEL II Diagnosis: Rash[ICD9: 782.1] Michelle Littlejohn MD, [facility] CPT-4: 44272 10/11/2013 ([id number]) 07049 EST. P ATIENT, LEVEL III Diagnosis: EDEMA[ICD9: 782.3] Jodie Littlejohn MD, [facility] CPT-4: 88565 09/17/2013 ([id number]) 82750 EST. P ATIENT, LEVEL III Diagnosis: EDEMA[ICD9: 782.3] Diagnosis: Left ankle pain[ICD9: 719.47] Michelle Littlejohn MD, [facility] CPT- 4: 61221 08/27/2013 ([id number]) 37122 EST. P ATIENT, LEVEL IV Diagnosis: BIPOLAR AFFECTIVE, MANIC, UNSPEC[ICD9: 296.40] Diagnosis: HYPOTHYROIDISM[ICD9: 244.9] Jodie Littlejohn MD, [facility] CPT-4: 00592 08/20/2013 ([id number]) 31274 EST. P ATIENT, LEVEL IV Diagnosis: BIPOLAR AFFECTIVE, MANIC, UNSPEC[ICD9: 296.40] Diagnosis: DEPRESSIVE DISORDER NEC[ICD9: 311] Jodie Littlejohn MD, [facility] CPT- 4: 70695 07/10/2013 ([id number]) 33482 EST. P ATIENT, LEVEL III Diagnosis: ALLERGIC RHINITIS[ICD9: 477.9] Diagnosis: IMPAIRED FASTING GLUCOSE[ICD9: 790.21] Diagnosis: DIETARY SURVEIL/OPHTHALMIC NURSE[ICD9: V65.3] Jodie Littlejohn MD, [facility] CPT-4: 51223 03/20/2013 ([id number]) 56559 EST. P ATIENT, LEVEL IV Diagnosis: Elevated fasting glucose[ICD9: 790.21] Diagnosis: HYPOTHYROIDISM[ICD9: 244.9] Diagnosis: DEPRESSIVE DISORDER NEC[ICD9: 311] Jodie Littlejohn MD, [facility] CPT- 4: 15363 03/07/2013 ([id number]) 77654 EST. P ATIENT, LEVEL III Diagnosis: HYPOTHYROIDISM[ICD9: 244.9] Diagnosis: DEPRESSIVE DISORDER NEC[ICD9: 311] Jodie Littlejohn MD, [facility] CPT- 4: 11713 01/22/2013 ([id number]) 18463 EST. P ATIENT, LEVEL III Diagnosis: ACUTE URI[ICD9: 465.9] Diagnosis: COUGH[ICD9: 786.2] Michelle Littlejohn MD, [facility] CPT-4: 51345 08/22/2012 ([id number]) 60429 EST. P ATIENT, LEVEL IV Diagnosis: ESSENTIAL HYPERTENSION[SNOMED: 21294621] Diagnosis: HYPERLIPIDEMIA[ICD9: 272.4] Jodie Littlejohn MD, [facility] CPT-4: 43746 08/14/2012 ([id number]) 75918 EST. P ATIENT, LEVEL III Diagnosis: ACUTE URI[ICD9: 465.9] Jodie Littlejohn MD, [facility] CPT-4: 28436 05/22/2012 ([id number]) 63536 EST. P ATIENT, LEVEL III Diagnosis: ESSENTIAL HYPERTENSION[SNOMED: 53119262] Jodie Littlejohn MD, [facility] CPT-4: 21300 04/17/2012 ([id number]) 74499 EST. P ATIENT, LEVEL IV Diagnosis: HYPOTHYROIDISM[ICD9: 244.9] Diagnosis: HYPERLIPIDEMIA[ICD9: 272.4] Diagnosis: DEPRESSIVE DISORDER NEC[ICD9: 311] Diagnosis: Vitamin D deficiency[ICD9: 268.9] Jodie Littlejohn MD, [facility] CPT-4: 77598 12/01/2011 ([id number]) 43154 EST. 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 P ATIENT, LEVEL IV Diagnosis: MASTODYNIA[ICD9: 611.71] Diagnosis: DEPRESSIVE DISORDER NEC[ICD9: 311] Diagnosis: Flatulence[ICD9: 787.3] Diagnosis: ABRASION HAND[ICD9: 914.0] [facility] CPT-4: 58204 06/01/2011 14171 EST. PATIENT, LEVEL IV Diagnosis: Breast pain in female[ICD9: 611.71] Diagnosis: DEPRESSIVE DISORDER NEC[ICD9: 311] Diagnosis: HYPERLIPIDEMIA[ICD9: 272.4] Diagnosis: HYPOTHYROIDISM[ICD9: 244.9] [facility] CPT-4: 82438 05/18/2011 Plan of Care Planned Activity Notes C odes Status Date Visit Plan: UTI - pt with positive urina lysis - culture sent if appropriate. Antibiotic electronically prescribed to pt's pharmacy of choice. Pt to call if symptoms do not improve. 11/10/2016 Patient Education: Patient Medication Summary Completed 11/10/2016 Care Plan: Urine Culture Pending 11/10/2016 Visit Plan: Fracture of left heel-gait i nstability-seeing Dr Artis-no surgery required-patient is using wheelchair or walker with stand by assist-home health to continue working with her. Sfidgaqgx-kfbbbbe-ulnwaatl daily anti histamine 10/19/2016 Appointment: Michelle Garcia WPtel: [address] [place] [address] (30 min) Complex 10/19/2016 Patient Education: Patient Medication Summary Completed [...] show improvement. 08/09/2016 Appointment: Michelle Garcia WPtel: [phone] (15 min) Moderate 08/09/2016 Patient Education: Patient [...] any concerns. 07/20/2016 Appointment: Michelle Garcia WPtel: [address] [place], [place] [phone] (30 min) Complex 07/20/2016 Patient Education: Patient [...] stable-no changes 05/27/2016 Appointment: Michelle Garcia WPtel: [address] [place], [place] [phone] (30 min) Complex 05/27/2016 Patient Education: Patient [...] if needed 04/29/2016 Appointment: Michelle Garcia WPtel: [phone] (30 min) Complex 04/29/2016 Patient Education: Patient [...] of plan. 04/02/2016 Appointment: Michelle Garcia WPtel: [phone] (30 min) Complex 04/02/2016 Patient Education: Patient [...] at home. 03/18/2016 Appointment: Michelle Garcia WPtel: [phone] (30 min) Complex 03/18/2016 Patient Education: Patient [...] the office 01/26/2016 Appointment: Michelle Garcia WPtel: [facility] [phone] (30 min) [facility] 01/26/2016 Patient Education: Patient Medication Summary Completed [...] current medications. 12/08/2015 Appointment: Michelle Garcia WPtel: [facility] [phone] (15 min) Moderate 12/08/2015 Patient Education: Patient [...] of plan. 04/28/2015 Appointment: Michelle Garcia WPtel: [address] [place], [place] [phone] (15 min) Moderate 04/28/2015 Patient Education: Patient [...] depression-patients sees Dr Valencia-recent inpatient stay at [facility]-now on latuda and doing well-no changes [...] Patient Education: Hypertension Completed 09/25/2014 Visit Plan: Iyitepkznxe-bmcfxucqa-dyrzp labs-increase po fluids-monitor blood pressure and pulse-return [...] Care Plan: COMPLETE CBC AUTOMATED LOINC : 59569-1 Ordered 09/23/2014 Care Plan: URINALYSIS NONAUTO W/O SCOPE LOINC : 74480-8 Ordered 09/23/2014 Visit Plan: URI - Pt [...] Summary Completed 07/08/2014 Appointment: [phone] [facility] [facility] 06/03/2014 Patient Education: Patient [...] at home. 05/31/2014 Appointment: [phone] [facility] Follow up 05/31/2014 Patient Education: Patient Medication Summary Completed 05/31/2014 Patient Education: Hypertension Completed 05/31/2014 Appointment: Jodie Littlejohn WPtel: [address] [place], [place] [phone] Follow up 05/07/2014 Visit Plan: [facility] [place] twice daily x 7 days DRINK LOTS of water - at least 16 ounces with each dose of ibuprofen (motrin)you need to get a deep tissue massage.heat to neck and lower back tiger balm for your neck and back muscles. 04/18/2014 Appointment: Jodie Littlejohn WPtel: [address] [place], [place] [phone] Follow up 04/18/2014 Patient Education: Patient Medication Summary Completed 04/18/2014 Care Plan: ASSAY OF CK (CPK) Ordered 04/18/2014 Care Plan: ASSAY DIPROPYLACETIC ACID Ordered 04/18/2014 Care Plan: ASSAY OF MYOGLOBIN Ordered 04/18/2014 Care Plan: COMPLETE CBC AUTOMATED LOINC : 29543-7 Ordered 04/18/2014 Visit Plan: Back pain - [...] not healing. 03/05/2014 Appointment: Jodie Littlejohn WPtel: [id number] [place] Follow up 03/05/2014 Patient Education: Patient Medication Summary Completed 03/05/2014 Visit Plan: Hypertension - well controll ed - continue with current medications, continue with no added salt diet. Pt has been encouraged to exercise daily.The pt has been advised to call the office if there are any acute concerns about change in blood pressure readings at home. 01/29/2014 Appointment: Jodie Littlejohn WPtel: [address] [place], [place] [phone] [place] Follow up 01/29/2014 Patient Education: Patient Medication [...] of anxiety/paranoia. 2013 Appointment: Jodie Littlejohn WPtel: [address] [place], [place] [phone] Follow up 10/23/2013 Patient Education: Patient Medication Summary Completed 10/23/2013 Patient Education: Hypertension Completed 10/23/2013 Appointment: Jodie Littlejohn WPtel: [address] [place], [place] [phone] Follow up 10/16/2013 Visit Plan: Rash-culture today [...] monitor symptoms. 2013 Appointment: Jodie Littlejohn WPtel: [address] [place], [place] [id number] Follow up 09/17/2013 Patient Education: Patient Medication [...] for compression-rest and elevated leg. 08/27/2013 Appointment: iMchelle Garcia WPtel: [phone] Other 08/27/2013 Patient Education: Patient Medication Summary Completed 08/27/2013 Appointment: Jodie Littlejohn WPtel: [address] [place], [place] [phone] [facility] follow up 08/22/2013 Visit Plan: Bipolar Mood [...] of control. 08/20/2013 Appointment: Jodie Littlejohn WPtel: [facility] Other 08/20/2013 Patient Education: Patient Medication Summary Completed 08/20/2013 Appointment: Jodie Littlejohn WPtel: [address] [place], [place] [phone] Follow up 08/07/2013 Visit Plan: Bipolar Mood [...] will not be seeing the physician in [place] any more - had actually stopped seeing the physician in [place] as of 2-3 weeks ago.She will be seeing Dr. Cabrera in [place]. 07/10/2013 Appointment: Jodie Littlejohn WPtel: [phone] [facility] Follow up 07/10/2013 Patient Education: Patient Medication [...] the office. 03/20/2013 Appointment: Michelle [facility]el[phone] [phone] [place] [address] Other 03/20/2013 Patient Education: Patient Medication Summary [...] check hgba1c. 03/07/2013 Appointment: Jodie Littlejohn WPtel: [phone] [facility] [place] Follow up 03/07/2013 Patient Education: Patient Medication Summary Completed 03/07/2013 Appointment: Michelle Garcia WPtel: [phone] [phone] Lab Draw 03/01/2013 Patient Education: Patient Medication [...] current medications. 01/22/2013 Appointment: Jodie Littlejohn WPtel: [facility] [facility] 01/22/2013 Patient Education: Patient Medication [...] the office. 08/22/2012 Appointment: Michelle Garcia [facility]el[phone] [phone] [facility] 08/22/2012 Patient Education: Patient Medication Summary [...] to medications. 08/14/2012 Appointment: Jodie Littlejohn WPtel: [phone] [facility] Follow up 08/14/2012 Patient Education: Patient Medication [...] home. 04/17/2012 Appointment: [facility]john [facility]Ptel[phone] [place] Other 04/17/2012 Patient Education: Hypertension Completed 04/17/2012 Patient Education: Patient Medication Summary Completed 04/17/2012 Appointment: [facility]john [facility]el[phone] [facility] [place] Injection 02/23/2012 Patient Education: Patient Medication [...] to hany. 12/01/2011 Appointment: Jodie Littlejohn WPtel: [address] [place], [place] [id number] Other 12/01/2011 Patient Education: Patient Medication Summary [...] No change in current medications. 08/11/2011 Appointment: Annetta Jodie WPtel: [address] [place], [place] [phone] Other 08/11/2011 Appointment: Jodie Littlejohn WPtel: [address] [place], [place] [phone] Other 08/11/2011 Patient Education: Patient Medication Summary [...] symptoms return. 2011 Appointment: Jodie Littlejohn WPtel: [address] [place] [address] Other 06/01/2011 Patient Education: Patient Medication Summary [...] control. 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 Hkdjuenqr-kpnewpv-qjqqgarx daily anti histamine . Hypertension - wel [...] x 2 wee ks [place] [facility] [place] [facility] [place] 400mg twice daily x 7 [...] YOUR BLOOD PRESSURE AND YOUR MACHINE . Hqgmwedjkcv-xwqlnlxne-dwrsz labs-incre ase po fluids-monitor blood pressure and [...] will not be seeing the physician in [place] any more - had actually stopped seeing the physician in [place] as of 2-3 weeks ago. She will be seeing Dr. Cabrera in [place]. . UTI - pt with posi tive [...] depression-patients sees Dr Valencia-recent inpatient stay at [facility]-now on latuda and doing well-no changes [...]
--- OUTSIDE RECORDS SUMMARY | 2019-11-07 17:22 | XMS REPORT | CCD ---
Author Author Cesar Littlejohn Organization Jodie Littlejohn MD, [facility] Address [facility] [address] [place] [address] Phone Care Team Providers Care Workforce Development Assistant Name Role Phone PP Unavailable CCM Unavailable Summary Purpose Interface Exchange Insurance Providers Payer name Policy type / Coverage type Covered green party ID Effective Begin Date Effective End Date WPS Medicare Part B Medicare Part B [id number] 2013 Unknown [facility] Part B [id number] 2013 Un known Family history Grandfather Diagnosis [...] Employment Unknown Jessica ntly employed retired from [employer], 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 [employer] 10/23/2013 Number of children Unknown 2 sons - 1 son in an accident in [place]505/13/2011 Marital status Unknown M arried 04/06/[address]: 886560765 Never smoker 04/06/[address]: 862106940 Never drinks alcohol 04/06/2011 Has the patient [...] 311 ICD-10: F32.9 Active 06/24/2015 Unknown 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 ICD-9: V58.69 ICD-10: [...] pain ICD-9: 719.47 Active 08/27/2013 Unknown 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.3 Active 03/20/2013 Unknown IMPAIRED FASTING [...] ICD-9: 311 ICD-10: F32.9 06/24/2015 Active 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 ICD-9: V58.69 ICD-10: [...] ankle pain ICD-9: 719.47 08/27/2013 Active 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.3 03/20/2013 Active IMPAIRED FASTING GLU [...] Fill Instructions Keflex 500 mg capsule RxNorm: 141953 1 Capsule(s) PO TID 11/10/2016 11/16/2016 Active nystatin 100,000 uni t/mL oral suspension RxNorm: 997142 5 Milliliter(s) PO sw neli and swallow QID 08/17/2016 08/16/2016 Inactive nystatin 100,000 uni t/mL oral suspension RxNorm: 105509 5 Milliliter(s) PO sw neli and swallow QID 08/17/2016 08/26/2016 Inactive Augmentin 875 mg-125 mg tablet RxNorm: 739071 1 Tablet(s) PO BID 08/09/2016 08/15/2016 Inactive Seroquel 100 mg tablet RxNorm: 644574 1/2 Tablet(s) PO QHS 07/20/2016 No Stop Date Active Depakote 125 mg tabl et,delayed release RxNorm: 9144296 2 Capsule(s) PO QAM 1 cap in the evening with meal 07/20/2016 10/17/2016 Inactive levothyroxine 88 mcg tablet RxNorm: 733789 TAKE ONE TABLET BY MO [facility] DAILY 06/01/2016 04/26/2017 Ac tive Synthroid 88 mcg tablet RxNorm: 608191 1 Tablet(s) PO daily 05/31/2016 09/27/2016 Inactive Fill generic if insurance will not cover Synthroid 88 mcg tablet RxNorm: 234932 1 Tablet(s) PO daily 05/31/2016 05/30/2016 Inactive Fill generic if insurance will not cover Flonase Allergy Reli ef 50 mcg/actuation nasal spray,suspension RxNorm: 3743822 2 [place] NASAL daily 05/27/2016 06/09/2016 Inactive Zithromax Z-Juancarlos 250 mg tablet RxNorm: 332769 1 Tablet(s) PO UD 05/27/2016 05/31/2016 Inactive zpack omeprazole 20 mg cap jacquelin,delayed release RxNorm: 731829 TAKE ONE CAPSULE BY M OUTH EVERY DAY 04/12/2016 01/06/2017 Active Effexor XR 75 mg cap jacquelin,extended release RxNorm: 473089 1 Capsule(s) PO daily TAKE ONE CAPSULE BY MOUTH DAILY 03/18/2016 12/12/2016 Active Effexor XR 37.5 mg c apsule,extended release RxNorm: 498980 TAKE ONE CAPSULE BY M OUTH DAILY 02/23/2016 03/17/2016 Inactive promethazine 6.25 mg -codeine 10 mg/5 mL syrup RxNorm: 005560 5-10 Milliliter(s) PO Q6 PRN 01/26/2016 No Stop Date Active Kenalog 40 mg/mL ericka pension for injection RxNorm: 8220123 Milliliter(s) Inj 01/26/2016 01/26/2016 In active Zithromax Z-Juancarlos 250 mg tablet RxNorm: 914070 1 Tablet(s) PO daily 01/26/2016 01/30/2016 Inactive zpack Effexor XR 37.5 mg c apsule,extended release RxNorm: 283643 1 Capsule(s) PO daily 11/21/2015 11/20/2015 In active Effexor XR 37.5 mg c apsule,extended release RxNorm: 948063 1 Capsule(s) PO daily 11/21/2015 02/18/2016 In active Latuda 20 mg tablet RxNorm: 8594450 1 Tablet(s) PO daily 09/23/2015 04/01/2016 Inactive Pristiq 25 mg tablet ,extended release RxNorm: 6032890 1 Tablet(s) PO QAM 09/23/2015 11/20/2015 In active Cipro 500 mg tablet RxNorm: 067213 1 Tablet(s) PO BID 07/23/2015 07/29/2015 Inactive probiotic bid x7 days Levaquin 500 mg tablet RxNorm: 112235 1 Tablet(s) PO daily 07/07/2015 07/06/2015 Inactive Levaquin 500 mg tablet RxNorm: 730633 1 Tablet(s) PO daily 07/07/2015 07/13/2015 Inactive Depakote 125 mg tabl et,delayed release RxNorm: 2338911 2 Tablet(s) PO QPM 05/14/2015 08/11/2015 In active levothyroxine 88 mcg tablet RxNorm: 764367 1 Tablet(s) PO daily 05/05/2015 05/30/2016 Inactive hydroxyzine HCl 25 m g tablet RxNorm: 495372 1 Tablet(s) PO TID PRN 04/28/2015 No Stop Date Active PRN ITCHING escitalopram 20 mg t ablet RxNorm: 674074 1 Tablet(s) PO daily 03/18/2015 03/18/2015 Inactive [SAVINGS FOR UNINSURED PATIENTS -- BIN:0 76292, PCN: ASPROD1, Group: [id number], ID# [id number], Process claim through [employer], for questions: . THIS IS NOT INSURANCE.] omeprazole 20 mg cap jacquelin,delayed release RxNorm: 609806 TAKE ONE CAPSULE BY M OUTH EVERY DAY 03/11/2015 01/04/2016 Inactive Diflucan 150 mg tablet RxNorm: 499753 1 Tablet(s) PO daily 11/18/2014 11/27/2014 Inactive Biofreeze (menthol) 4 % topical gel RxNorm: 3936840 1 Application TOP BI D 11/18/2014 11/27/2014 In active tetanus and diphther ia tox (PF) 5 Lf unit-2 Lf unit/0.5 mL IM susp RxNorm: 744686 1 injection IM 10/23/2014 10/23/2014 Inactive Augmentin 875 mg-125 mg tablet RxNorm: 146684 1 Tablet(s) PO BID 10/23/2014 11/01/2014 Inactive Kenalog 40 mg/mL ericka pension for injection RxNorm: 7976131 Milliliter(s) Inj 07/08/2014 07/08/2014 In active Zithromax Z-Juancarlos 250 mg tablet RxNorm: 844413 1 Tablet(s) PO daily 07/08/2014 07/12/2014 Inactive zpack escitalopram 20 mg t ablet RxNorm: 267057 1 Tablet(s) PO daily 07/01/2014 01/26/2015 Inactive [SAVINGS FOR UNINSURED PATIENTS -- BIN:0 54278, PCN: ASPROD1, Group: [id number], ID# [id number], Process claim through [employer], for questions: . THIS IS NOT INSURANCE.] escitalopram 20 mg t ablet RxNorm: 052107 TAKE ONE TABLET BY [facility] ONCE A DAY 07/01/2014 12/27/2014 In active Cipro 500 mg tablet RxNorm: 882609 1 Tablet(s) PO BID 06/07/2014 06/13/2014 Inactive probiotic bid x7 days [SAVINGS FOR UNINSURED PATIENTS -- BIN:[id number], PCN: ASPROD1, Group: [id number], ID# [id number], Process claim through [employer], for questions: . THIS IS NOT INSURANCE.] Cipro 500 mg tablet RxNorm: 113130 1 Tablet(s) PO BID 06/07/2014 06/06/2014 Inactive probiotic bid x7 days Diflucan 150 mg tablet RxNorm: 117051 1 Tablet(s) PO daily 05/31/2014 05/30/2014 Inactive Diflucan 150 mg tablet RxNorm: 571412 1 Tablet(s) PO daily 05/31/2014 06/04/2014 Inactive [SAVINGS FOR UNINSURED PATIENTS -- BIN:0 40152, PCN: ASPROD1, Group: [id number], ID# [id number], Process claim through [employer], for questions: . THIS IS NOT INSURANCE.] Synthroid 75 mcg tablet RxNorm: 774057 Tablet(s) PO TAKE ONE TABLET BY MOUTH 04/25/2014 05/30/2014 Inactive PLEASE DO NOT SUBSTITUTE levothyroxine 88 mcg tablet RxNorm: 599997 1 Tablet(s) PO daily TAKE ONE TABLET BY MOUTH EVERY DAY 04/24/2014 04/24/2014 Inactive ketorolac 60 mg/2 mL intramuscular solution RxNorm: 454376 Milliliter(s) IM 04/18/2014 04/18/2014 In active nystatin-triamcinolo ne 100,000 unit/g-0.1 % topical cream RxNorm: 4082482 APPLY TOPICALLY TWICE A DAY 04/14/2014 05/11/2014 Inactive nystatin-triamcinolo ne 100,000 unit/g-0.1 % topical cream RxNorm: 7640373 APPLY TOPICALLY TWICE A DAY 04/14/2014 05/11/2014 Inactive Vitamin D3 5,000 uni t tablet RxNorm: 202825 ONE BY MOUTH EVERY DAY 04/08/2014 04/02/2015 Inactive lorazepam 0.5 mg tablet RxNorm: 226246 1 Tablet(s) PO QHS 03/05/2014 No Stop Date Active one q 8 hr prn, may take an extra dose at bedtime if nec omeprazole 20 mg cap jacquelin,delayed release RxNorm: 093921 TAKE ONE CAPSULE BY M OUTH EVERY DAY 03/04/2014 01/27/2015 Inactive spironolactone 25 mg tablet RxNorm: 583508 1 Tablet(s) PO TIW 10/23/2013 2016 Inactive Zyprexa 5 mg tablet RxNorm: 595543 1/2 Tablet(s) PO QHS 10/23/2013 03/04/2014 Inactive escitalopram 20 mg t ablet RxNorm: 555574 1 Tablet(s) PO daily 10/23/2013 05/20/2014 Inactive Depakote 125 mg tabl et,delayed release RxNorm: 3328062 2 Tablet(s) PO QPM 10/23/2013 04/20/2014 In active Diflucan 150 mg tablet RxNorm: 647414 1 Tablet(s) PO daily 10/11/2013 10/17/2013 Inactive nystatin-triamcinolo ne 100,000 unit/g-0.1 % topical cream RxNorm: 9179594 1 Application TOP BID 10/11/2013 10/24/2013 Inactive spironolactone 25 mg tablet RxNorm: 487497 1 Tablet(s) PO daily 09/17/2013 10/22/2013 Inactive Depakote 125 mg tabl et,delayed release RxNorm: 3392466 2 Tablet(s) PO TID 08/20/2013 10/22/[address] valencia increased escitalopram 20 mg t ablet RxNorm: 975018 1 Tablet(s) PO daily 07/10/2013 10/22/2013 Inactive Synthroid 75 mcg tablet RxNorm: 655492 Tablet(s) PO TAKE ONE TABLET BY MOUTH 04/17/2013 04/23/2014 Inactive Vitamin D3 5,000 uni t tablet RxNorm: 450186 1 Tablet(s) PO daily 03/28/2013 04/07/2014 Inactive Kenalog 40 mg/mL ericka pension for injection RxNorm: 2612004 Milliliter(s) Inj 03/20/2013 03/20/2013 In active omeprazole 20 mg cap jacquelin,delayed release RxNorm: 638704 Capsule(s) PO TAKE ON E CAPSULE BY MOUTH EVERY DAY 01/30/2013 08/19/2013 Inactive lorazepam 0.5 mg tablet RxNorm: 051332 1 Tablet(s) PO BID 01/22/2013 03/04/2014 Inactive one q 8 hr prn, may take an extra dose at bedtime if nec risperidone 0.5 mg t ablet RxNorm: 671305 1 Tablet(s) PO QHS 01/22/2013 08/19/2013 Inactive Silvadene 1 % Topica l Cream RxNorm: 098868 Cream TOP APPLY ON SK IN NEEDED 10/27/2012 01/21/2013 In active Cipro 500 mg tablet RxNorm: 390671 1 Tablet(s) PO BID 09/04/2012 09/03/2012 Inactive Cipro 500 mg tablet RxNorm: 861515 1 Tablet(s) PO BID 09/04/2012 09/10/2012 Inactive Rocephin 500 mg Solu tion for Injection RxNorm: 298428 1 Inj 08/22/2012 08/22/2012 Inactive Kenalog 40 mg/mL Ericka p for Injection RxNorm: 9508575 1 Milliliter(s) Inj 08/22/2012 08/22/2012 In active Rocephin 500 mg Solu tion for Injection RxNorm: 912827 1.5 Milliliter(s) Inj 05/22/2012 01/22/2013 In active Kenalog 40 mg/mL Ericka p for Injection RxNorm: 7192004 1 Milliliter(s) Inj 05/22/2012 05/22/2012 In active Synthroid 75 mcg tablet RxNorm: 478196 Tablet(s) PO 04/10/2012 04/16/2013 Inactive TAKE ONE TABLET BY MOUTH EVERY DAY name brand only Synthroid 75 mcg tablet RxNorm: 816704 Tablet(s) PO 04/09/2012 04/09/2012 Inactive TAKE ONE TABLET BY MOUTH EVERY DAY Vitamin D3 5,000 uni t tablet RxNorm: 244431 1 Tablet(s) PO daily 02/14/2012 03/09/2013 Inactive Vitamin D3 5,000 uni t tablet RxNorm: 543777 1 Tablet(s) PO daily 02/14/2012 02/13/2012 Inactive omeprazole 20 mg cap jacquelin,delayed release RxNorm: 596307 1 Capsule(s) PO daily 01/24/2012 01/29/2013 In active Vitamin D2 50,000 un it capsule RxNorm: 143599 1 Capsule(s) PO QW on e weekly x 3 months 12/07/2011 02/13/2012 Inactive one weekly x 3 months then 5000 units da natalie thereafter Synthroid 75 mcg tablet RxNorm: 503642 1 Tablet(s) PO daily 09/28/2011 03/25/2012 Inactive TAKE ONE TABLET BY MOUTH EVERY DAY ON AN EMPTY STOMACH omeprazole 20 mg cap jacquelin,delayed release RxNorm: 877893 1 Capsule(s) PO daily 07/20/2011 01/15/2012 In active Synthroid 75 mcg Tab RxNorm: 344304 Tablet(s) PO 2011 09/27/2011 Inactive TAKE ONE TABLET BY MOUTH EVERY DAY ON AN EMPTY STOMACH lorazepam 0.5 mg tablet RxNorm: 933035 1 Tablet(s) PO QDAY PRN 07/13/2011 01/21/2013 Inactive one q 8 hr prn, may take an extra dose a t bedtime if nec Synthroid 75 mcg Tab RxNorm: 729740 1 Tablet(s) PO daily 06/21/2011 07/18/2011 Inactive Silvadene 1 % Topica l Cream RxNorm: 835989 1 Application TOP PRN 06/01/2011 10/26/2012 Inactive dispense a small tube Depakote 125 mg tabl et,delayed release RxNorm: 9804200 3 Tablet(s) PO daily 06/01/2011 08/19/2013 In active lorazepam 0.5 mg Tab RxNorm: 565029 1 Tablet(s) PO PRN 06/01/2011 07/12/2011 Inactive one q 8 hr prn, may take an extra dose at bedtime if nec lorazepam 0.5 mg Tab RxNorm: 707576 Tablet(s) PO 04/20/2011 05/31/2011 Inactive one q 8 hr prn, may take an extra dose at bedtime if nec Influenza Virus Vacc ine 0.5 mL RxNorm: IM No Start Nathan e Active aspirin 81 mg Cap, D elayed Release RxNorm: 617921 1 Capsule(s) PO daily No Start Date Active omeprazole 20 mg cap jacquelin,delayed release RxNorm: 892728 1 Capsule(s) PO QHS No Start Date Active Lipitor 40 mg Tab RxNorm: 041527 1 Tablet(s) PO daily No Start Date Active Lumigan 0.01 % Eye D rops RxNorm: 5266322 Drop(s) OPH No Start Date Active Remeron 15 mg tablet RxNorm: 460518 1 Tablet(s) PO QHS No Start Date Active Lexapro 10 mg Tab RxNorm: 084116 1/2 Tablet(s) PO daily No Start Date 05/31/2011 Inactive pantoprazole 40 mg t ablet,delayed release RxNorm: 009405 1 Tablet(s) PO daily No Start Date 05/30/2014 Inactive Seroquel 100 mg tablet RxNorm: 411162 1 Tablet(s) PO QHS No Start Date 2016 Inactive Latuda 40 mg tablet RxNorm: 7142492 1 Tablet(s) PO daily No Start Date 09/22/2015 Inactive trifluoperazine 5 mg Tab RxNorm: 026301 1 Tablet(s) PO daily No Start Date 05/17/2011 Inactive Zithromax Z-Juancarlos 250 mg tablet RxNorm: 528875 Tablet(s) PO UD No Start Date 01/21/2013 Inactive trifluoperazine 5 mg Tab RxNorm: 640833 1 Tablet(s) PO QHS violette [place] No Start Date 08/13/2012 Inactive timolol 0.5 % Eye Drops RxNorm: 970898 1 Drop(s) OPH daily No Start Date 05/31/2011 Inactive each eye Lasix 20 mg Tab RxNorm: 569367 1/2 Tablet(s) PO QDAY PRN No Start Date 05/31/2011 Inactive lorazepam 0.5 mg Tab RxNorm: 379827 Tablet(s) PO No Start Date 04/19/2011 Inactive one q 8 hr prn, may take an extra dose at bedtime if nec Lexapro 5 mg tablet RxNorm: 953469 1 Tablet(s) PO daily No Start Date 07/09/2013 Inactive risperidone 0.5 mg t ablet RxNorm: 898607 1 Tablet(s) PO QHS No Start Date 01/21/2013 Inactive Lexapro 10 mg Tab RxNorm: 226287 1 Tablet(s) PO daily No Start Date 05/17/2011 Inactive Pristiq 50 mg tablet ,extended release RxNorm: 451229 1/2 Tablet(s) PO QAM No Start Date 09/22/2015 Inactive Ditropan XL 5 mg 24 hr Tab RxNorm: 019766 1 Tablet(s) PO daily No Start Date 01/28/2014 Inactive Vesicare 5 mg tablet RxNorm: 765673 1 Tablet(s) PO daily No Start Date 01/28/2014 Inactive oxcarbazepine 150 mg Tab RxNorm: 607437 1 Tablet(s) PO QHS No Start Date 08/10/2011 Inactive levothyroxine 88 mcg tablet RxNorm: 922637 oral No S tart Date 05/04/2015 Inactive Depakote 125 mg Tab RxNorm: 1310171 1 Tablet(s) PO daily No Start Date 05/31/2011 Inactive Zyprexa 5 mg tablet RxNorm: 348069 1 q am 2 at hs Tablet(s) PO No Start Date 10/22/2013 Inactive Calcium 500 + D (D3) 500 mg-125 unit Tab RxNorm: 228174 1 Tablet(s) PO BID No Start Date 05/31/2011 Inactive KCL 10 meq RxNorm: 1 PO daily No Start Date 05/31/2011 Inactive Stelazine 1 mg tablet RxNorm: 694381 1 Tablet(s) PO QAM No Start Date 02/12/2015 Inactive Mary 180 mg Tab RxNorm: 750594 1 Tablet(s) PO daily No Start Date 05/31/2011 Inactive Centrum Silver Ultra Women's Tab RxNorm: 1 Tablet(s) PO BID No Start Date 01/21/2013 Inactive Vagifem 10 mcg Vagin al Tab RxNorm: 803661 Tablet(s) VAG No Start Date 01/21/2013 Inactive 2-3x per week per dr kumar omeprazole 20 mg Cap , Delayed Release RxNorm: 649987 1 Capsule(s) PO daily No Start Date 2011 Inactive Vitamin D2 50,000 un it capsule RxNorm: 922123 1 Capsule(s) PO QW on e weekly x 3 months No Start Date 12/06/2011 Inactive one weekly x 3 months levothyroxine 75 mcg Cap RxNorm: 234452 1 Capsule(s) PO daily No Start Date 01/21/2013 Inactive Medication Administered Medication Codes Instruc tions Start Date Status Kenalog 40 mg/mL suspension for injection RxNorm: 2808613 Milliliter 01/26/2016 No longer Active tetanus and diphtheria tox (PF) 5 Lf uni t-2 Lf unit/0.5 mL IM susp RxNorm: 040729 1injection 10/23/2014 No longer Active Kenalog 40 mg/mL suspension for injection RxNorm: 7337602 Milliliter 07/08/2014 No longer Active ketorolac 60 mg/2 mL intramuscular solution RxNorm: 177644 Milliliter 04/18/2014 No longer Active Kenalog 40 mg/mL suspension for injection RxNorm: 1184225 Milliliter 03/20/2013 No longer Active Rocephin 500 mg Solution for Injection RxNorm: 956633 1 08/22/2012 No longer A ctive Kenalog 40 mg/mL Susp for Injection RxNorm: 8027549 1Milliliter 08/22/2012 N o longer Active Kenalog 40 mg/mL Susp for Injection RxNorm: 8643757 1Milliliter 05/22/2012 N o longer Active Immunizations [...] unspecified ICD-10: E03.9 ICD-9: 244.9 09/23/2015 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 ICD-10: Z79.899 ICD-9: V58.69 [...] IMPAIRED FASTING GLUCOSE ICD-9: 790.21 03/20/2013 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.3 03/20/2013 ALLERGIC RHINITIS ICD-9: 477.9 [...] Pt states she had a very difficult [place] - Pt saw her psychiatrist 04/19/11 breast complaint 05/18/2011 Pt states she had a very difficult [place] - Pt saw her psychiatrist 04/19/11 Results Observation Observation Code Item Item Code Result Date Urine Culture Ucult Prel iminary NO Growth Day 1 09/11 Urine Culture Ucult Comp lete NO Growth Day 2 09/11 C A/B FLU 9521262 Influe nza A Scr Negative 08/09/2016 C A/B FLU 3559951 Influe nza B Scr Negative 08/09/2016 C RAP A SC 7380431 Strep A Negative 01/26/2016 Lipid Ord30 CHOL 189 mg/dL 01/01/2016 Lipid Ord30 HDL 46.0 mg/dl 01/01/2016 Lipid Ord30 TRIG 111 mg/dL 01/01/2016 Lipid Ord30 LDL 121 mg/dL 01/01/2016 Lipid Ord30 C/HDL 4.1 Ratio 01/01/2016 Urine Culture Ucult Prel iminary NO Growth Day 1 12/26 Urine Culture Ucult Comp lete NO Growth Day 2 12/26 Valproic Acid Vnz949 BHARATH PROIC 30.0 ug/ml 09/23/2015 Cbc With [...] 37.6 % 09/23/2015 Cbc With Differential Ord2 [place]% 9.7 % 09/23/2015 Cbc With Differential Ord2 [...] 2.92 K/ul 09/23/2015 Cbc With Differential Ord2 [place] ABS# 0.8 K/ul 09/23/2015 Cbc With Differential Ord2 Eos ABS# 0.2 K/ul 09/23/2015 Cbc With Differential Ord2 Baso ABS# 0.0 K/ul 09/23/2015 Cbc With Differential Ord2 New Analyzer Notice Please note new ref ranges s tarting 05-28-2015 due to implemntation of new five part differential hematolgy analyzer. 09/23/2015 Comp Metabolic Bsh076 NA 138 mEq/L 09/23/2015 Comp Metabolic Wua041 K 4.0 mEq/L 09/23/2015 Comp Metabolic Duv000 CL 105 mEq/L 09/23/2015 Comp Metabolic Cau374 CO2 26.0 mEq/L 09/23/2015 Comp Metabolic Edu616 AN ION GAP 11 09/23/2015 Comp Metabolic Tsf982 GL UCOSE 87 mg/dL 09/23/2015 Comp Metabolic Ypj492 Cr eat 0.6 mg/dL 09/23/2015 Comp Metabolic Amf194 eG FR 95 ml/min/1.73m2 09/22 Comp Metabolic Pgh635 BUN 10 mg/dL 09/23/2015 Comp Metabolic Mvo358 B/ C Ratio 15.6 Ratio 09/23/2015 Comp Metabolic Ged601 CA LCIUM 8.6 mg/dL 09/23/2015 Comp Metabolic Wdb961 AL K PHOS 104 U/L 09/23/2015 Comp Metabolic Xui943 T(SGOT) 17 U/L 09/23/2015 Comp Metabolic Zot444 AL T(SGPT) 14 U/L 09/23/2015 Comp Metabolic Tie175 BI LI T 0.3 mg/dL 09/23/2015 Comp Metabolic Nmk476 AL BUMIN 3.8 g/dL 09/23/2015 Comp Metabolic Dxa073 TP RO 6.3 g/dL 09/23/2015 Comp Metabolic Chy500 GL OB 2.5 g/dL 09/23/2015 Comp Metabolic Hpw476 A/ G Ratio 1.5 Ratio 09/23/2015 Comp Metabolic Mqz643 Os mo 274 mOsmo 09/23/2015 Free T4 Svh990 FREE T4 1.05 ng/dL 09/23/2015 Tsh Ord6 hTSH II 1.84 uIU/mL 09/23/2015 Culture Urine [id number] URI NE CULTURE SEE NOTES 07/10/2015 Culture Urine [id number] Con tinued Results 07/10/2015 Urine Culture Ucult Comp lete >100,000 col/ml aerobic grow th sent to ref lab 07/08/2015 Comp Metabolic Nvo212 NA 140 mEq/L 06/24/2015 Comp Metabolic Aqd373 K 4.3 mEq/L 06/24/2015 Comp Metabolic Pkf353 CL 103 mEq/L 06/24/2015 Comp Metabolic Qit077 CO2 32.0 mEq/L 06/24/2015 Comp Metabolic Sgf464 AN ION GAP 9 06/24/2015 Comp Metabolic Hfi810 GL UCOSE 87 mg/dL 06/24/2015 Comp Metabolic Qcv721 Cr eat 0.8 mg/dL 06/24/2015 Comp Metabolic Lrg876 eG FR 76 ml/min/1.73m2 06/24 Comp Metabolic Dsb512 BUN 10 mg/dL 06/24/2015 Comp Metabolic Xqp450 B/ C Ratio 12.8 Ratio 06/24/2015 Comp Metabolic Dqm134 CA LCIUM 9.0 mg/dL 06/24/2015 Comp Metabolic Gcv561 AL K PHOS 93 U/L 06/24/2015 Comp Metabolic Hhw509 T(SGOT) 16 U/L 06/24/2015 Comp Metabolic Njj114 AL T(SGPT) 10 U/L 06/24/2015 Comp Metabolic Aiy870 BI LI T 0.4 mg/dL 06/24/2015 Comp Metabolic Xet901 AL BUMIN 3.8 g/dL 06/24/2015 Comp Metabolic Lki836 TP RO 6.2 g/dL 06/24/2015 Comp Metabolic Muq268 GL OB 2.4 g/dL 06/24/2015 Comp Metabolic Ehs590 A/ G Ratio 1.5 Ratio 06/24/2015 Comp Metabolic Jxd304 Os mo 278 mOsmo 06/24/2015 Cbc With [...] 87.3 fl 06/24/2015 Cbc With Differential Ord2 [place]% 10.0 % 06/24/2015 Cbc With Differential Ord2 [...] 3.51 K/ul 06/24/2015 Cbc With Differential Ord2 [place] ABS# 0.8 K/ul 06/24/2015 Cbc With Differential Ord2 Eos ABS# 0.4 K/ul 06/24/2015 Cbc With Differential Ord2 Baso ABS# 0.1 K/ul 06/24/2015 Cbc With Differential Ord2 New Analyzer Notice Please note new ref ranges s tarting 05-28-2015 due to implemntation of new five part differential hematolgy analyzer. 06/24/2015 Free T4 Fgd210 FREE T4 0.98 ng/dL 06/24/2015 Tsh Ord6 hTSH II 3.48 uIU/mL 06/24/2015 Lipid Ord30 CHOL 158 mg/dL 06/24/2015 Lipid Ord30 HDL 45.0 mg/dl 06/24/2015 Lipid Ord30 TRIG 129 mg/dL 06/24/2015 Lipid Ord30 LDL 87 mg/dL 06/24/2015 Lipid Ord30 C/HDL 3.5 Ratio 06/24/2015 Valproic Acid Qgm386 BHARATH PROIC 42.0 ug/ml 06/24/2015 TSH 7032827 TSH 1.199 uIU/ML 08/20/2013 FREE T4 1145104 FREE T4 1.06 NG/DL 08/20/2013 URINALYSIS NONAUTO W/O SCOPE 33803 Specific [place] 1.010 DateTime(Free Text in Aprima) URINALYSIS NONAUTO W/O SCOPE 07203 PH 6.0 DateTime(Free Jayy t in Aprima) URINALYSIS NONAUTO W/O SCOPE 65008 GLUCOSE neg DateTime(Free Jayy t in Aprima) URINALYSIS NONAUTO W/O SCOPE 84539 Protein neg DateTime(Free Jayy t in Aprima) URINALYSIS NONAUTO W/O SCOPE 66972 Blood 1+ DateTime(Free Text in Aprima) URINALYSIS NONAUTO W/O SCOPE 85502 Bilirubin neg DateTime(Free Jayy t in Aprima) URINALYSIS NONAUTO W/O SCOPE 14124 Ketones neg DateTime(Free Jayy t in Aprima) URINALYSIS NONAUTO W/O SCOPE 59125 Urobilinogen neg DateTime(Free Text in Aprima) URINALYSIS NONAUTO W/O SCOPE 10969 Nitrite neg DateTime(Free Jayy t in Aprima) URINALYSIS NONAUTO W/O SCOPE 32266 Leukocytes 1+ DateTime(Free Text in Aprima) URINALYSIS NONAUTO W/O SCOPE 87104 Specific [place] 1.005 DateTime(Free Text in Aprima) URINALYSIS NONAUTO W/O SCOPE 49830 PH 7 DateTime(Free Text in Aprima) URINALYSIS NONAUTO W/O SCOPE 52299 GLUCOSE neg DateTime(Free Jayy t in Aprima) URINALYSIS NONAUTO W/O SCOPE 20509 Protein neg DateTime(Free Jayy t in Aprima) URINALYSIS NONAUTO W/O SCOPE 44983 Blood trace DateTime(Free T ext in ) URINALYSIS NONAUTO W/O SCOPE 61679 Bilirubin neg DateTime(Free Jayy t in Aprima) URINALYSIS NONAUTO W/O SCOPE 51183 Ketones neg DateTime(Free Jayy t in Aprima) URINALYSIS NONAUTO W/O SCOPE 93546 Urobilinogen neg DateTime(Free Text in Aprima) URINALYSIS NONAUTO W/O SCOPE 96303 Nitrite neg DateTime(Free Jayy t in Aprima) URINALYSIS NONAUTO W/O SCOPE 35859 Leukocytes neg DateTime(Free Text in ) UA 37907 Specific [place] 1.005 DateTime(Free Text in Aprima ) UA 39525 PH 6 DateTime(Free Text in ) UA 85307 GLUCOSE neg DateTime(Free Text in Apr ) UA 21247 Protein neg DateTime(Free Text in Aprima ) UA 88018 Blood trace DateTime(Free Text in Aprima ) UA 15896 Bilirubin neg DateTime(Free Text in Aprima ) UA 64321 Ketones neg DateTime(Free Text in Aprima ) UA 68904 Urobilinogen 0.2 DateTime(Free Text in ) UA 29855 Nitrite neg DateTime(Free Text in ) UA 19878 Leukocytes neg DateTime(Free Text in Apr ) [...] Date URINALYSIS NONAUTO W /O SCOPE CPT-4: [id number] 11/10/2016 ADMIN INFLUENZA VIRU S VAC CPT-4: G6355Mividfl 02/20/2016 FLU VACC 4 BHARATH 3 YRS PLUS IM Formatting Model/CDA Sections, Assigned to/Juli Cerrato SNOMED CT: [id number] CPT-4: 14833Ugmnyxc 02/20/2016 TRIAMCINOLONE ACET I [place] NOS CPT-4: W8683Ebfseqf 01/26/2016 URINALYSIS NONAUTO W /O SCOPE CPT-4: 02881Zfsiyxo 09/23/2015 URINALYSIS NONAUTO W /O SCOPE CPT-4: 89439Detwlmw 07/07/2015 ADMIN INFLUENZA VIRU S VAC Formatting Model/CDA Sections, Assigned to CPT-4: C6316Ksxcyed 02/13/2015 FLU VACC 4 BHARATH 3 YRS PLUS IM Formatting Model/CDA Sections, Assigned to SNOMED CT: [id number] CPT-4: 69692Ycjiezu 02/13/2015 TENIVAC TD VACCINE N O PRSRV 7/> IM Assigned to CPT-4: 40774Lquhoxs 10/23/2014 URINALYSIS NONAUTO W /O SCOPE CPT-4: 50577Zrzrdpb 10/23/2014 OCCULT BLOOD FECES CPT-4: 02616Etpiviz 10/08/2014 PPPS, SUBSEQ VISIT CPT-4: F3282Rtqgidb 10/02/2014 TRIAMCINOLONE ACET I [place] NOS CPT-4: U5352Pgaccsv 07/08/2014 URINALYSIS NONAUTO W /O SCOPE CPT-4: 45426Ivqvtzh 06/03/2014 THER/PROPH/DIAG INJ SC/IM CPT-4: 32756Jiehxjy 04/18/2014 KETOROLAC TROMETHAMI NE INJ CPT-4: L7418Eopuxdj 04/18/2014 ADMIN INFLUENZA VIRU S VAC CPT-4: B7477Luumxvl 01/29/2014 ADMIN PNEUMOCOCCAL V ACCINE Assigned to/Juli Cerrato CT: [id number] CPT-4: B6391Nlektys 01/29/2014 FLU VAC NO PRSV 4 VA L 3 YRS+ CPT-4: 90299Cnggndd 01/29/2014 URINALYSIS NONAUTO W /O SCOPE CPT-4: 16184Wdsvxql 11/12/2013 ROUTINE VENIPUNCTURE CPT-4: 75894Flzvykb 08/20/2013 TRIAMCINOLONE ACET I [place] NOS CPT-4: Q8167Hpidxfo 03/20/2013 THER/PROPH/DIAG INJ SC/IM CPT-4: 62709Kirblry 03/20/2013 URINALYSIS NONAUTO W /O SCOPE CPT-4: 63094Osmuely 03/01/2013 URINALYSIS NONAUTO W /O SCOPE CPT-4: 24247Ksbpmxd 09/04/2012 TRIAMCINOLONE ACET I [place] NOS CPT-4: X3456Ubndjce 08/22/2012 ROCEPHIN, PER 250 MG CPT-4: G4838Ewxtcdp 08/22/2012 TRIAMCINOLONE ACET I [place] NOS CPT-4: O4039Ozemvgh 05/22/2012 THER/PROPH/DIAG INJ SC/IM CPT-4: 15147Ypnrfwz 05/22/2012 ROCEPHIN, PER 250 MG CPT-4: X0488Clvpewv 05/22/2012 PRESCRIP TRANSMIT A ERX SY CPT-4: R9644Zkwqyrx 05/22/2012 ADMIN INFLUENZA VIRU S VAC CPT-4: Y1629Btqakew 02/23/2012 FLULAVAL VACC, 3 YRS & >, IM CPT-4: J6279Vmurtwi 02/23/2012 PRESCRIP TRANSMIT A ERX SY CPT-4: E7070Ufbfcth 06/01/2011 Vital Signs Date Vital 10/19/2016 Blood Pressure 1: 126/64 Code: 8480-6 Heart Rate 1: 93 bpm Height: 5' SpO2: 97% Weight: 08/09/2016 Blood Pressure 1: 116/68 Code: 8480-6 BMI: 40.2 Code: 29561-5 Heart Rate 1: 98 bpm Height: 5' SpO2: 97% Temperature: 37.5 (C ) / 99.5 (F) Weight: 206 lbs 07/20/2016 Blood Pressure 1: 126/74 Code: 8480-6 BMI: 40.2 Code: 19827-1 Heart Rate 1: 94 bpm Height: 5' SpO2: 95% Weight: 206 lbs 05/27/2016 Blood Pressure 1: 136/76 Code: 8480-6 BMI: 39.1 Code: 72106-9 Heart Rate 1: 95 bpm Height: 5' SpO2: 98% Weight: 200 lbs 04/29/2016 Blood Pressure 1: 128/76 Code: 8480-6 Heart Rate 1: 72 bpm Height: SpO2: 96% Weight: 04/02/2016 Blood Pressure 1: 138/88 Code: 8480-6 BMI: 38.5 Code: 67314-4 Heart Rate 1: 88 bpm Height: 5' SpO2: 96% Weight: 197 lbs 03/18/2016 Blood Pressure 1: 148/88 Code: 8480-6 BMI: 38.5 Code: 28395-1 Heart Rate 1: 66 bpm Height: 5' SpO2: 98% Weight: 197 lbs 01/26/2016 BMI: 39.5 Code: 19275-9 Height: 5' Weight: 202 lbs 01/01/2016 Blood Pressure 1: 120/80 Code: 8480-6 BMI: 40.0 Code: 58689-2 Heart Rate 1: 86 bpm Height: 5' SpO2: 94% Weight: 205 lbs 12/25/2015 Blood Pressure 1: 138/80 Code: 8480-6 BMI: 40.0 Code: 45654-1 Height: 5' Weight: 205 lbs 12/08/2015 Blood Pressure 1: 122/72 Code: 8480-6 Heart Rate 1: 100 bpm Height: 5' SpO2: 98% 09/23/2015 Blood Pressure 1: 130/82 Code: 8480-6 BMI: 40.2 Code: 76647-7 Heart Rate 1: 77 bpm Height: 5' SpO2: 97% Weight: 206 lbs 06/19/2015 Blood Pressure 1: 128/80 Code: 8480-6 BMI: 40.8 Code: 15255-1 Heart Rate 1: 80 bpm Height: 5' SpO2: 94% Weight: 209 lbs 05/19/2015 Blood Pressure 1: 12878 Code: 8480-6 BMI: 41.0 Code: 05414-1 Heart Rate 1: 103 bpm Height: 5' SpO2: 97% Weight: 210 lbs 04/28/2015 Blood Pressure 1: 128/76 Code: 8480-6 BMI: 41.4 Code: 82073-0 Heart Rate 1: 72 bpm Height: 5' Weight: 212 lbs 03/18/2015 Blood Pressure 1: 128/78 Code: 8480-6 BMI: 41.6 Code: 06693-6 Heart Rate 1: 74 bpm Height: 5' SpO2: 97% Weight: 213 lbs 02/27/2015 Blood Pressure 1: 128/70 Code: 8480-6 BMI: 41.2 Code: 72638-0 Heart Rate 1: 74 bpm Height: 5' SpO2: 95% Weight: 211 lbs 02/13/2015 Blood Pressure 1: 148/80 Code: 8480-6 BMI: 41.2 Code: 83625-2 Heart Rate 1: 90 bpm Height: 5' SpO2: 95% Weight: 211 lbs 11/18/2014 Blood Pressure 1: 124/60 Code: 8480-6 BMI: 40.8 Code: 65250-7 Heart Rate 1: 75 bpm Height: 5' SpO2: 97% Weight: 209 lbs 10/23/2014 Blood Pressure 1: 118/70 Code: 8480-6 BMI: 43.3 Code: 68764-2 Heart Rate 1: 78 bpm Height: 4'10" SpO2: 96% Temperature: 36.5 (C ) / 97.7 (F) Weight: 207 lbs 10/02/2014 Blood Pressure 1: 118/78 Code: 8480-6 BMI: 42.5 Code: 70909-2 Heart Rate 1: 77 bpm Height: 4'10" SpO2: 97% Waist Measure (cm): 107 cm Weight: 207 lbs 09/25/2014 Blood Pressure 1: 140/78 Code: 8480-6 Blood Pressure 2: 140/80 Code: 8480-6 09/23/2014 Blood Pressure 1: 106/62 Code: 8480-6 BMI: 42.9 Code: 34294-3 Heart Rate 1: 99 bpm Height: 4'10" SpO2: 97% Weight: 209 lbs 07/08/2014 Blood Pressure 1: 136/82 Code: 8480-6 BMI: 43.6 Code: 11540-6 Heart Rate 1: 72 bpm Height: 4'10" SpO2: 96% Temperature: 37.0 (C ) / 98.6 (F) Weight: 212 lbs 05/31/2014 Blood Pressure 1: 140/88 Code: 8480-6 BMI: 41.1 Code: 12237-8 Heart Rate 1: 92 bpm Height: 4'10" Weight: 200 lbs 04/18/2014 Blood Pressure 1: 132/78 Code: 8480-6 BMI: 41.9 Code: 80157-4 Heart Rate 1: 80 bpm Height: 4'10" Weight: 204 lbs 03/05/2014 Blood Pressure 1: 128/80 Code: 8480-6 BMI: 41.3 Code: 98874-2 Heart Rate 1: 60 bpm Height: 4'10" SpO2: 96% Weight: 201 lbs 01/29/2014 Blood Pressure 1: 142/88 Code: 8480-6 BMI: 41.5 Code: 82188-1 Heart Rate 1: 80 bpm Height: 4'10" Weight: 202 lbs 10/23/2013 Blood Pressure 1: 110/56 Code: 8480-6 BMI: 41.5 Code: 79213-3 Heart Rate 1: 76 bpm Height: 4'10" Weight: 202 lbs 10/11/2013 Blood Pressure 1: 124/74 Code: 8480-6 BMI: 41.5 Code: 76466-2 Heart Rate 1: 76 bpm Height: 4'10" Weight: 202 lbs 09/17/2013 Blood Pressure 1: 140/84 Code: 8480-6 Heart Rate 1: 80 bpm Weight: 203 lbs 08/27/2013 Blood Pressure 1: 124/80 Code: 8480-6 Heart Rate 1: 72 bpm Weight: 08/20/2013 Blood Pressure 1: 110/50 Code: 8480-6 BMI: 40.3 Code: 69786-8 Heart Rate 1: 72 bpm Height: 4'10" Weight: 196 lbs 07/10/2013 Blood Pressure 1: 110/56 Code: 8480-6 Heart Rate 1: 82 bpm SpO2: 95% Weight: 03/20/2013 Blood Pressure 1: 158/80 Code: 8480-6 Heart Rate 1: 72 bpm Temperature: 37.1 (C) / 98.8 (F) Weight: 189 lbs 03/07/2013 Blood Pressure 1: 108/66 Code: 8480-6 BMI: 38.8 Code: 16066-1 Heart Rate 1: 76 bpm Height: 4'10" Weight: 189 lbs 01/22/2013 Blood Pressure 1: 110/68 Code: 8480-6 BMI: 38.8 Code: 31538-7 Heart Rate 1: 76 bpm Height: 4'10" Weight: 189 lbs 08/22/2012 Blood Pressure 1: 126/68 Code: 8480-6 BMI: 37.0 Code: 23003-7 Heart Rate 1: 76 bpm Height: 4'10" Temperature: 36.7 (C ) / 98.0 (F) Weight: 180 lbs 08/14/2012 Blood Pressure 1: 106/64 Code: 8480-6 BMI: 36.6 Code: 79615-2 Heart Rate 1: 72 bpm Height: 4'10" Weight: 178 lbs 05/22/2012 Blood Pressure 1: 124/72 Code: 8480-6 Heart Rate 1: 80 bpm Temperature: 36.4 (C) / 97.6 (F) Weight: 185 lbs 04/17/2012 Blood Pressure 1: 120/66 Code: 8480-6 BMI: 37.0 Code: 59133-2 Heart Rate 1: 65 bpm Height: 4'10" SpO2: 98% Weight: 180 lbs 12/01/2011 Blood Pressure 1: 122/58 Code: 8480-6 Heart Rate 1: 76 bpm Respiratory Rate: 24 bpm Weight: 175 lbs 08/11/2011 Blood Pressure 1: 98/44 Code: 8480-6 BMI: 34.1 Code: 20313-3 Heart Rate 1: 86 bpm Height: 4'10" Respiratory Rate: 16 bpm Weight: 166 lbs 06/01/2011 Blood Pressure 1: 104/62 Code: 8480-6 BMI: 34.8 Code: 42967-8 Heart Rate 1: 72 bpm Height: 4'10" Respiratory Rate: 16 bpm Weight: 169 lbs 8 oz 05/18/2011 Blood Pressure 1: 130/66 Code: 8480-6 BMI: 34.8 Code: 62387-2 Heart Rate 1: 64 bpm Height: 4'11" [...] None Hospital Follow Up _ Oth er: [facility] 02/13/2015 None back pain Quality dull [...] days ago 08/27/2013 fell on cement at [facility] ankle pain Pertinent Findings stiffness 08/27/2013 None [...] Hospital Follow Up _ Oth er: from [facility] 08/20/2013 started on remeron and zyprexa changed [...] t states that since her stay in [facility] - she is [...] Exercise no exercise 03/20/2013 None hypothyroid Quality extension service specialist in charge kellie 03/07/2013 None hypothyroid Severity mil d [...] Findings Denies edema 03/07/2013 None hypothyroid Quality extension service specialist in charge kellie 01/22/2013 None hypothyroid Severity mil d [...] known all ergens 08/22/2012 None hypothyroid Quality extension service specialist in charge kellie 08/14/2012 None hypothyroid Severity mil d [...] decreased energy level 05/22/2012 None hypothyroid Quality extension service specialist in charge kellie 04/17/2012 None hypothyroid Severity mil d [...] Pertinent Findings stiffness 12/01/2011 None hypothyroid Quality extension service specialist in charge kellie 08/11/2011 None hypothyroid Severity mil d [...] Encounters Encounter Performer Loca tion Codes Date ([id number]) 48977 EST. P ATIENT, LEVEL III Diagnosis: Unsteadiness on feet[ICD10: R26.81] Diagnosis: Unspecified fracture of left calcaneus, initial encounter for closed fracture[ICD10: S92.002A] Diagnosis: Allergic rhinitis due to pollen[ICD10: J30.1] [facility] CPT-4: 11741 10/19/2016 ([id number]) 61656 EST. P ATIENT, LEVEL III Diagnosis: Cough[ICD10: R05] Diagnosis: Fever, unspecified[ICD10: R50.9] Diagnosis: Acute recurrent maxillary sinusitis[ICD10: J01.01] Michelle Littlejohn MD, [facility] CPT-4: 65821 08/09/2016 ([id number]) 46292 EST. P ATIENT, LEVEL III Diagnosis: Essential (primary) hypertension[ICD10: I10] Diagnosis: Allergic rhinitis due to pollen[ICD10: J30.1] Diagnosis: Bipolar disorder, current episode depressed, moderate[ICD10: F31.32] Michelle Littlejohn MD, [facility] CPT-4: 93672 07/20/2016 ([id number]) 84108 EST. P ATIENT, LEVEL III Diagnosis: Cough[ICD10: R05] Diagnosis: Bipolar disorder, current episode depressed, moderate[ICD10: F31.32] Diagnosis: Acute upper respiratory infection, unspecified[ICD10: J06.9] Michelle Littlejohn MD, [facility] CPT-4: 60587 05/27/2016 ([id number]) 77388 EST. P ATIENT, LEVEL III Diagnosis: Bipolar disorder, current episode manic without psychotic features, moderate[ICD10: F31.12] Diagnosis: Essential (primary) hypertension[ICD10: I10] Michelle Littlejohn MD, [facility] CPT-4: 50781 04/29/2016 ([id number]) 53339 EST. P ATIENT, LEVEL III Diagnosis: Bipolar disorder, current episode depressed, moderate[ICD10: F31.32] Michelle Littlejohn MD, [facility] CPT-4: 44421 04/02/2016 ([id number]) 07784 EST. P ATIENT, LEVEL IV Diagnosis: Bipolar disorder, current episode manic without psychotic features, moderate[ICD10: F31.12] Diagnosis: Essential (primary) hypertension[ICD10: I10] Michelle Littlejohn MD, [facility] CPT-4: 62279 03/18/2016 ([id number]) 02232 EST. P ATIENT, LEVEL III Diagnosis: Acute laryngopharyngitis[ICD10: J06.0] Diagnosis: Cough[ICD10: R05] Diagnosis: Allergic rhinitis due to pollen[ICD10: J30.1] Michelle Littlejohn MD, [facility] CPT-4: 53707 01/26/2016 ([id number]) Miscellaneou s no charge Diagnosis: Other seborrheic keratosis[ICD10: L82.1] Michelle Littlejohn MD, [facility] CPT-4: 75260 01/01/2016 ([id number]) 79422 EST. P ATIENT, LEVEL III Diagnosis: Essential (primary) hypertension[ICD10: I10] Diagnosis: Mixed hyperlipidemia[ICD10: E78.2] Diagnosis: Other obesity due to excess calories[ICD10: E66.09] Diagnosis: Frequency of micturition[ICD10: R35.0] Michelle Littlejohn MD, [facility] CPT-4: 19498 12/25/2015 ([id number]) 31544 EST. P ATIENT, LEVEL IV Diagnosis: Gastro-esophageal reflux disease without esophagitis[ICD10: K21.9] Diagnosis: Essential (primary) hypertension[ICD10: I10] Diagnosis: Generalized anxiety disorder[ICD10: F41.1] Michelle Littlejohn MD, [facility] CPT-4: 61557 12/08/2015 ([id number]) 71652 EST. P ATIENT, LEVEL IV Diagnosis: Bipolar disorder, current episode depressed, moderate[ICD10: F31.32] Diagnosis: Essential (primary) hypertension[ICD10: I10] Diagnosis: Hypothyroidism, unspecified[ICD10: E03.9] Diagnosis: Allergic rhinitis due to pollen[ICD10: J30.1] Diagnosis: Dysuria[ICD10: R30.0] Michelle Littlejohn MD, [facility] CPT-4: 15748 09/23/2015 ([id number]) 96988 EST. P ATIENT, LEVEL III Diagnosis: Essential (primary) hypertension[ICD10: I10] Diagnosis: Hypothyroidism, unspecified[ICD10: E03.9] Diagnosis: Mixed hyperlipidemia[ICD10: E78.2] Diagnosis: Bipolar disorder, current episode depressed, moderate[ICD10: F31.32] Michelle Littlejohn MD, [facility] CPT-4: 90150 06/19/2015 ([id number]) 80481 EST. P ATIENT, LEVEL III Diagnosis: Essential (primary) hypertension[ICD10: I10] Diagnosis: Major depressive disorder, single episode, unspecified[ICD10: F32.9] Michelle Littlejohn MD, [facility] CPT-4: 75852 05/19/2015 ([id number]) 25006 EST. P ATIENT, LEVEL III Diagnosis: Rash and other nonspecific skin eruption[ICD10: R21] Jodie Littlejohn MD, [facility] CPT-4: 11608 04/28/2015 ([id number]) 03164 EST. P ATIENT, LEVEL III Diagnosis: Essential (primary) hypertension[ICD10: I10] Diagnosis: Bipolar disorder, current episode depressed, moderate[ICD10: F31.32] Michelle Littlejohn MD, [facility] CPT-4: 55240 03/18/2015 ([id number]) 47915 EST. P ATIENT, LEVEL II Diagnosis: Other seborrheic keratosis[ICD10: L82.1] Michelle Littlejohn MD, [facility] CPT-4: 83977 02/27/2015 ([id number]) 30239 EST. P ATIENT, LEVEL IV Diagnosis: Hypothyroidism, unspecified[ICD10: E03.9] Diagnosis: Bipolar disorder, current episode depressed, moderate[ICD10: F31.32] Michelle Littlejohn MD, [facility] CPT-4: 47785 02/13/2015 ([id number]) 04473 EST. P ATIENT, LEVEL III Diagnosis: Yeast infection involving the vagina and surrounding area[ICD9: 112.1] Diagnosis: Back pain[ICD9: 724.5] Diagnosis: Muscle strain[ICD9: 848.9] Katerin Littlejohn MD, [facility] CPT-4: 18229 11/18/2014 ([id number]) 30615 EST. P ATIENT, LEVEL IV Diagnosis: Dog bite[ICD9: 879.8] Diagnosis: CELLULITIS OF ARM[ICD9: 682.3] Diagnosis: DYSURIA[ICD9: 788.1] Katerin Littlejohn MD, [facility] CPT-4: 17603 10/23/2014 ([id number]) Maxine andrew no charge Diagnosis: ESSENTIAL HYPERTENSION[ICD9: 401.9] Jodie Littlejohn MD, [facility] CPT- 4: 95768 09/25/2014 ([id number]) 53408 EST. P ATIENT, LEVEL IV Diagnosis: Hypotension[ICD9: 458.9] Diagnosis: DIZZINESS AND GIDDINESS[ICD9: 780.4] Diagnosis: HYPOTHYROIDISM[ICD9: 244.9] Michelle Littlejohn MD, [facility] CPT- 4: 45405 09/23/2014 ([id number]) 59773 EST. P ATIENT, LEVEL III Diagnosis: ACUTE URI[ICD9: 465.9] Diagnosis: COUGH[ICD9: 786.2] Diagnosis: EDEMA[ICD9: 782.3] Michelle Littlejohn MD, [facility] CPT-4: 36452 07/08/2014 ([id number]) 43512 EST. P ATIENT, LEVEL IV Diagnosis: ESSENTIAL HYPERTENSION[ICD9: 401.9] Diagnosis: HYPOTHYROIDISM[ICD9: 244.9] Diagnosis: Dysuria[ICD9: 788.1] Jodie Littlejohn MD, [facility] CPT-4: 20695 05/31/2014 ([id number]) 39624 EST. P ATIENT, LEVEL III Diagnosis: Back pain[ICD9: 724.5] Jodie Littlejohn MD, [facility] CPT-4: 62391 04/18/2014 ([id number]) 85472 EST. P ATIENT, LEVEL IV Diagnosis: Back pain[ICD9: 724.5] Diagnosis: Scab[ICD9: 782.8] Diagnosis: BIPOLAR AFFECTIVE, MANIC, UNSPEC[ICD9: 296.40] Jodie Littlejohn MD, [facility] CPT-4: 07215 03/05/2014 ([id number]) 12458 EST. P ATIENT, LEVEL III Diagnosis: ESSENTIAL HYPERTENSION[ICD9: 401.9] Jodie Littlejohn MD, [facility] CPT- 4: 09586 01/29/2014 ([id number]) 24167 EST. P ATIENT, LEVEL IV Diagnosis: ESSENTIAL HYPERTENSION[SNOMED: 19669270] Diagnosis: EDEMA[ICD9: 782.3] Diagnosis: DEPRESSIVE DISORDER NEC[ICD9: 311] Jodie Littlejohn MD, [facility] CPT- 4: 44242 10/23/2013 65875 EST. PATIENT, LEVEL II Diagnosis: Rash[ICD9: 782.1] Michelle Littlejohn MD, [facility] CPT-4: 58508 10/11/2013 ([id number]) 68717 EST. P ATIENT, LEVEL III Diagnosis: EDEMA[ICD9: 782.3] Jodie Littlejohn MD, [facility] CPT-4: 08282 09/17/2013 ([id number]) 08708 EST. P ATIENT, LEVEL III Diagnosis: EDEMA[ICD9: 782.3] Diagnosis: Left ankle pain[ICD9: 719.47] Michelle Littlejohn MD, [facility] CPT- 4: 79646 08/27/2013 ([id number]) 32505 EST. P ATIENT, LEVEL IV Diagnosis: BIPOLAR AFFECTIVE, MANIC, UNSPEC[ICD9: 296.40] Diagnosis: HYPOTHYROIDISM[ICD9: 244.9] Jodie Littlejohn MD, [facility] CPT-4: 67814 08/20/2013 ([id number]) 97817 EST. P ATIENT, LEVEL IV Diagnosis: BIPOLAR AFFECTIVE, MANIC, UNSPEC[ICD9: 296.40] Diagnosis: DEPRESSIVE DISORDER NEC[ICD9: 311] Jodie Littlejohn MD, [facility] CPT- 4: 84928 07/10/2013 ([id number]) 98858 EST. 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 P ATIENT, LEVEL IV Diagnosis: Elevated fasting glucose[ICD9: 790.21] Diagnosis: HYPOTHYROIDISM[ICD9: 244.9] Diagnosis: DEPRESSIVE DISORDER NEC[ICD9: 311] Jodie Littlejohn MD, [facility] CPT- 4: 22958 03/07/2013 ([id number]) 13268 EST. P ATIENT, LEVEL III Diagnosis: HYPOTHYROIDISM[ICD9: 244.9] Diagnosis: DEPRESSIVE DISORDER NEC[ICD9: 311] Jodie Littlejohn MD, [facility] CPT- 4: 09660 01/22/2013 ([id number]) 97700 EST. P ATIENT, LEVEL III Diagnosis: ACUTE URI[ICD9: 465.9] Diagnosis: COUGH[ICD9: 786.2] Michelle Littlejohn MD, [facility] CPT-4: 90741 08/22/2012 ([id number]) 36823 EST. P ATIENT, LEVEL IV Diagnosis: ESSENTIAL HYPERTENSION[SNOMED: 36004657] Diagnosis: HYPERLIPIDEMIA[ICD9: 272.4] Jodie Littlejohn MD, [facility] CPT-4: 52032 08/14/2012 ([id number]) 33373 EST. P ATIENT, LEVEL III Diagnosis: ACUTE URI[ICD9: 465.9] Jodie Littlejohn MD, [facility] CPT-4: 96248 05/22/2012 ([id number]) 93743 EST. P ATIENT, LEVEL III Diagnosis: ESSENTIAL HYPERTENSION[SNOMED: 30435544] Jodie Littlejohn MD, [facility] CPT-4: 40106 04/17/2012 ([id number]) 62029 EST. P ATIENT, LEVEL IV Diagnosis: HYPOTHYROIDISM[ICD9: 244.9] Diagnosis: HYPERLIPIDEMIA[ICD9: 272.4] Diagnosis: DEPRESSIVE DISORDER NEC[ICD9: 311] Diagnosis: Vitamin D deficiency[ICD9: 268.9] Jodie Littlejohn MD, [facility] CPT-4: 10193 12/01/2011 ([id number]) 23627 EST. 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 P ATIENT, LEVEL IV Diagnosis: MASTODYNIA[ICD9: 611.71] Diagnosis: DEPRESSIVE DISORDER NEC[ICD9: 311] Diagnosis: Flatulence[ICD9: 787.3] Diagnosis: ABRASION HAND[ICD9: 914.0] [facility] CPT-4: 18342 06/01/2011 01577 EST. PATIENT, LEVEL IV Diagnosis: Breast pain in female[ICD9: 611.71] Diagnosis: DEPRESSIVE DISORDER NEC[ICD9: 311] Diagnosis: HYPERLIPIDEMIA[ICD9: 272.4] Diagnosis: HYPOTHYROIDISM[ICD9: 244.9] [facility] CPT-4: 30969 05/18/2011 Plan of Care Planned Activity Notes [...] assist-home health to continue working with her. Ysuetzbdi-sxavgzn-fxziyrcr daily anti histamine 10/19/2016 Appointment: Michelle Garcia WPtel: [address] [place] [phone] (30 min) Complex 10/19/2016 Patient Education: Patient [...] show improvement. 08/09/2016 Appointment: Michelle Garcia WPtel: [phone] (15 min) Moderate 08/09/2016 Patient Education: [...] any concerns. 07/20/2016 Appointment: Michelle Garcia WPtel: [address] [place] [place] [phone] ([facility] Complex 07/20/2016 Patient Education: Patient [...] stable-no changes 05/27/2016 Appointment: Michelle Garcia WPtel: [address] [place], [place] [phone] (30 min) Complex 05/27/2016 Patient Education: Patient [...] if needed 04/29/2016 Appointment: Michelle Garcia WPtel: [phone] (30 min) Complex 04/29/2016 Patient Education: Patient [...] of plan. 04/02/2016 Appointment: Michelle Garcia WPtel: [phone] (30 min) Complex 04/02/2016 Patient Education: Patient [...] at home. 03/18/2016 Appointment: Michelle Garcia WPtel: [phone] (30 min) Complex 03/18/2016 Patient Education: [...] the office 01/26/2016 Appointment: Michelle Garcia WPtel: [phone] (30 min) [facility] 01/26/2016 Patient Education: Patient Medication Summary [...] current medications. 12/08/2015 Appointment: Michelle Garcia WPtel: [phone] (15 min) Moderate 12/08/2015 Patient Education: Patient [...] of plan. 04/28/2015 Appointment: Michelle Garcia WPtel: [address] [place], [place] [phone] (15 min) Moderate 04/28/2015 Patient Education: Patient [...] Dr Valencia-recent inpatient stay at [facility]-now on latuda and doing well-no changes [...] Patient Education: Hypertension Completed 09/25/2014 Visit Plan: Rtvclhkrdid-lciljuucg-amwlv labs-increase po fluids-monitor blood pressure and pulse-return [...] Care Plan: COMPLETE CBC AUTOMATED LOINC : 42886-7 Ordered 09/23/2014 Care Plan: URINALYSIS NONAUTO W/O SCOPE LOINC : 21248-3 Ordered 09/23/2014 Visit Plan: URI - Pt [...] Summary Completed 07/08/2014 Appointment: [phone] [phone] [facility] 06/03/2014 Patient Education: [...] at home. 05/31/2014 Appointment: Jod[facility] Littlejohn [facility] [phone] [facility] Follow up 05/31/2014 Patient Education: Patient Medication Summary Completed 05/31/2014 Patient Education: Hypertension Completed 05/31/2014 Appointment: Jodie Littlejohn WPtel: [address] [place], [place] [phone] Follow up 05/07/2014 Visit Plan: [facility] [facility] 400mg twice daily x 7 days DRINK LOTS of water - at least 16 ounces with each dose of ibuprofen (motrin)you need to get a deep tissue massage.heat to neck and lower back tiger balm for your neck and back muscles. 04/18/2014 Appointment: Jodie Littlejohn WPtel: [address] [place], [place] [phone] Follow up 04/18/2014 Patient Education: Patient Medication Summary Completed 04/18/2014 Care Plan: ASSAY OF CK (CPK) Ordered 04/18/2014 Care Plan: ASSAY DIPROPYLACETIC ACID Ordered 04/18/2014 Care Plan: ASSAY OF MYOGLOBIN Ordered 04/18/2014 Care Plan: COMPLETE CBC AUTOMATED LOINC : 69898-7 Ordered 04/18/2014 Visit Plan: Back pain - [...] not healing. 03/05/2014 Appointment: Jodie Littlejohn WPtel: [facility] [place] Follow up 03/05/2014 Patient Education: [...] at home. 01/29/2014 Appointment: Jodie Littlejohn WPtel: [address] [place], [place] [phone] [place] Follow up 01/29/2014 Patient Education: Patient [...] of anxiety/paranoia. 2013 Appointment: Jodie Littlejohn WPtel: [address] [place], [place] [phone] Follow up 10/23/2013 Patient Education: Patient Medication Summary Completed 10/23/2013 Patient Education: Hypertension Completed 10/23/2013 Appointment: Jodie Littlejohn WPtel: [address] [place], [place] [phone] Follow up 10/16/2013 Visit Plan: Rash-culture today [...] monitor symptoms. 2013 Appointment: Jodie Littlejohn WPtel: [address] [place], [place] [phone] Follow up 09/17/2013 Patient Education: Patient Medication [...] elevated leg. 08/27/2013 Appointment: Michelle Garcia WPtel: [phone] Other 08/27/2013 Patient Education: Patient Medication Summary Completed 08/27/2013 Appointment: Jodie Littlejohn WPtel: [address] [place], [place] [phone] [facility] follow up 08/22/2013 Visit Plan: Bipolar [...] of control. 08/20/2013 Appointment: Jodie Littlejohn WPtel: [facility] [id number] Other 08/20/2013 Patient Education: Patient Medication Summary Completed 08/20/2013 Appointment: Jodie Littlejohn WPtel: [address] [place], [place] [phone] Follow up 08/07/2013 Visit Plan: Bipolar Mood [...] will not be seeing the physician in [place] any more - had actually stopped seeing the physician in [place] as of 2-3 weeks ago.She will be seeing Dr. Cabrera in [place]. 07/10/2013 Appointment: Jodie Littlejohn WPtel: [address] [facility] Follow up 07/10/2013 Patient Education: Patient [...] injection today in the office. 03/20/2013 Appointment: Mcihelle Garcia WPtel: [phone] [facility] [id number] [place] [address] Other 03/20/2013 Patient Education: Patient Medication Summary [...] check hgba1c. 03/07/2013 Appointment: Jodie Littlejohn WPtel: [phone] [facility] [place] Follow up 03/07/2013 Patient Education: Patient Medication Summary Completed 03/07/2013 Appointment: Michelle Garcia WPtel: [phone] [id number] Lab Draw 03/01/2013 Patient Education: Patient Medication [...] current medications. 01/22/2013 Appointment: Jodie Littlejohn [facility]el[facility] [place] [facility] 01/22/2013 Patient Education: Patient [...] the office. 08/22/2012 Appointment: [phone] [facility] 08/22/2012 Patient Education: Patient Medication Summary [...] medications. 08/14/2012 Appointment: Jodie Littlejohn WPtel: [phone] [facility] Follow up 08/14/2012 Patient Education: Patient [...] home. 04/17/2012 Appointment: [phone] [place] Other 04/17/2012 Patient Education: Hypertension Completed 04/17/2012 Patient Education: Patient Medication Summary Completed 04/17/2012 Appointment: [phone] [place] [facility] 02/23/2012 Patient Education: Patient [...] to hany. 12/01/2011 Appointment: Jodie Littlejohn WPtel: [address] [place] [address] Other 12/01/2011 Patient Education: Patient Medication Summary [...] current medications. 08/11/2011 Appointment: Annetta Jodie WPtel: [address] [place], [place] [id number] Other 08/11/2011 Appointment: Jodie Littlejohn WPtel: [address] [place], [place] [id number] Other 08/11/2011 Patient Education: Patient Medication Summary [...] symptoms return. 2011 Appointment: Jodie Littlejohn WPtel: [address] [place] [address] Other 06/01/2011 Patient Education: Patient Medication Summary [...] previous levels of control. 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 Pzhcougex-ctqxgyf-xwnymmly daily anti histamine . Hypertension - wel [...] x 2 wee ks check labs [facility] ibupro[place] 400mg twice daily x 7 [...] YOUR BLOOD PRESSURE AND YOUR MACHINE . Gkhnioizcxu-hgtzdlpxv-scxco labs-incre ase po fluids-monitor blood pressure and [...] will not be seeing the physician in [place] any more - had actually stopped seeing the physician in [place] as of 2-3 weeks ago. She will be seeing Dr. Cabrera in [place]. . UTI - pt with posi tive [...] Dr Valencia-recent inpatient stay at [facility]-now on latuda and doing well-no changes [...]
--- OUTSIDE RECORDS SUMMARY | 2019-11-07 17:25 | XMS REPORT | CCD ---
Author Author Cesar Littlejohn Organization Jodie Littlejohn MD, [facility] Address [facility] [place] [address] Phone Care Team Providers Care Hose Tester Name Role Phone PP Unavailable CCM Unavailable Summary Purpose Interface Exchange Insurance Providers Payer name Policy type / Coverage type Covered green party ID Effective Begin Date Effective End Date WPS Medicare Part B Medicare Part B [id number] 2013 Unknown [facility] Part B [id number] 2013 Un known Family history Grandfather Diagnosis [...] Employment Unknown Jessica ntly employed retired from [employer], 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 Unknown Has never used illegal drugs 011 Allergies, Adverse Reactions, Alerts Substance Reaction Codes Entered Date Inactivated Date Status Chocolate hives Unknown 05/18/2011 No In active Date Active Past Medical History Illness Codes Condition Status Onset Date Resolved Date Allergic rhinitis du e to pollen ICD-9: 477.0 ICD-10: J30.1 Active 01/25/2016 Unknown Unspecified fracture of left calcaneus, initial encounter for closed fracture ICD-9: 825.0 ICD-10: S92.002A Active 10/19/2016 Unknown Unsteadiness on feet ICD-9: 781.2 ICD-10: R26.81 Active 10/19/2016 Unknown Dysuria ICD-9: 788.1 ICD-10: R30.0 Active 09/22/2015 Unknown Acute recurrent maxi llary sinusitis ICD-9: [...] 311 ICD-10: F32.9 Active 06/24/2015 Unknown Other emt intermediate (cur rent) drug therapy ICD-9: V58.69 ICD-10: [...] pain ICD-9: 719.47 Active 08/27/2013 Unknown 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 ICD-9: V65.3 Active 03/20/2013 Unknown IMPAIRED FASTING [...] Condition Codes Effectiv e Dates Condition Status Allergic rhinitis du e to pollen ICD-9: 477.0 ICD-10: J30.1 01/25/2016 Active Unspecified fracture of left calcaneus, initial encounter for closed fracture ICD-9: 825.0 ICD-10: S92.002A 10/19/2016 Active Unsteadiness on feet ICD-9: 781.2 ICD-10: R26.81 10/19/2016 Active Dysuria ICD-9: 788.1 ICD-10: R30.0 09/22/2015 Active Acute recurrent maxi llary sinusitis ICD-9: [...] ICD-9: 311 ICD-10: F32.9 06/24/2015 Active Other emt intermediate (cur rent) drug therapy ICD-9: V58.69 ICD-10: [...] ankle pain ICD-9: 719.47 08/27/2013 Active 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 ICD-9: V65.3 03/20/2013 Active IMPAIRED FASTING GLU [...] Date Stop Date Sta tus Fill Instructions nystatin 100,000 uni t/mL oral suspension RxNorm: 547415 5 Milliliter(s) PO sw neli and swallow QID 08/17/2016 08/16/2016 Inactive nystatin 100,000 uni t/mL oral suspension RxNorm: 863658 5 Milliliter(s) PO sw neli and swallow QID 08/17/2016 08/26/2016 Inactive Augmentin 875 mg-125 mg tablet RxNorm: 217431 1 Tablet(s) PO BID 08/09/2016 08/15/2016 Inactive Seroquel 100 mg tablet RxNorm: 746579 1/2 Tablet(s) PO QHS 07/20/2016 No Stop Date Active Depakote 125 mg tabl et,delayed release RxNorm: 4970529 2 Capsule(s) PO QAM 1 cap in the evening with meal 07/20/2016 10/17/2016 Inactive levothyroxine 88 mcg tablet RxNorm: 288645 TAKE ONE TABLET BY MO UTH DAILY 06/01/2016 04/26/2017 Ac tive Synthroid 88 mcg tablet RxNorm: 623646 1 Tablet(s) PO daily 05/31/2016 09/27/2016 Inactive Fill generic if insurance will not cover Synthroid 88 mcg tablet RxNorm: 376236 1 Tablet(s) PO daily 05/31/2016 05/30/2016 Inactive Fill generic if insurance will not cover Flonase Allergy Reli ef 50 mcg/actuation nasal spray,suspension RxNorm: 3502092 2 [place] NASAL daily 05/27/2016 06/09/2016 Inactive Zithromax Z-Juancarlos 250 mg tablet RxNorm: 169052 1 Tablet(s) PO UD 05/27/2016 05/31/2016 Inactive zpack omeprazole 20 mg cap jacquelin,delayed release RxNorm: 026044 TAKE ONE CAPSULE BY M OUTH EVERY DAY 04/12/2016 01/06/2017 Active Effexor XR 75 mg cap jacquelin,extended release RxNorm: 824613 1 Capsule(s) PO daily TAKE ONE CAPSULE BY MOUTH DAILY 03/18/2016 12/12/2016 Active Effexor XR 37.5 mg c apsule,extended release RxNorm: 398863 TAKE ONE CAPSULE BY M OUTH DAILY 02/23/2016 03/17/2016 Inactive promethazine 6.25 mg -codeine 10 mg/5 mL syrup RxNorm: 650525 5-10 Milliliter(s) PO Q6 PRN 01/26/2016 No Stop Date Active Kenalog 40 mg/mL ericka pension for injection RxNorm: 6211409 Milliliter(s) Inj 01/26/2016 01/26/2016 In active Zithromax Z-Juancarlos 250 mg tablet RxNorm: 807487 1 Tablet(s) PO daily 01/26/2016 01/30/2016 Inactive zpack Effexor XR 37.5 mg c apsule,extended release RxNorm: 438006 1 Capsule(s) PO daily 11/21/2015 11/20/2015 In active Effexor XR 37.5 mg c apsule,extended release RxNorm: 918175 1 Capsule(s) PO daily 11/21/2015 02/18/2016 In active Latuda 20 mg tablet RxNorm: 3649187 1 Tablet(s) PO daily 09/23/2015 04/01/2016 Inactive Pristiq 25 mg tablet ,extended release RxNorm: 8198015 1 Tablet(s) PO QAM 09/23/2015 11/20/2015 In active Cipro 500 mg tablet RxNorm: 242354 1 Tablet(s) PO BID 07/23/2015 07/29/2015 Inactive probiotic bid x7 days Levaquin 500 mg tablet RxNorm: 014209 1 Tablet(s) PO daily 07/07/2015 07/06/2015 Inactive Levaquin 500 mg tablet RxNorm: 803358 1 Tablet(s) PO daily 07/07/2015 07/13/2015 Inactive Depakote 125 mg tabl et,delayed release RxNorm: 9751851 2 Tablet(s) PO QPM 05/14/2015 08/11/2015 In active levothyroxine 88 mcg tablet RxNorm: 024153 1 Tablet(s) PO daily 05/05/2015 05/30/2016 Inactive hydroxyzine HCl 25 m g tablet RxNorm: 928395 1 Tablet(s) PO TID PRN 04/28/2015 No Stop Date Active PRN ITCHING escitalopram 20 mg t ablet RxNorm: 791000 1 Tablet(s) PO daily 03/18/2015 03/18/2015 Inactive [SAVINGS FOR UNINSURED PATIENTS -- BIN:0 12726, PCN: ASPROD1, Group: [id number], ID# [id number], Process claim through [employer], for questions: . THIS IS NOT INSURANCE.] omeprazole 20 mg cap jacquelin,delayed release RxNorm: 101951 TAKE ONE CAPSULE BY M OUTH EVERY DAY 03/11/2015 01/04/2016 Inactive Diflucan 150 mg tablet RxNorm: 497210 1 Tablet(s) PO daily 11/18/2014 11/27/2014 Inactive Biofreeze (menthol) 4 % topical gel RxNorm: 5666160 1 Application TOP BI D 11/18/2014 11/27/2014 In active tetanus and diphther ia tox (PF) 5 Lf unit-2 Lf unit/0.5 mL IM susp RxNorm: 269056 1 injection IM 10/23/2014 10/23/2014 Inactive Augmentin 875 mg-125 mg tablet RxNorm: 783972 1 Tablet(s) PO BID 10/23/2014 11/01/2014 Inactive Kenalog 40 mg/mL ericka pension for injection RxNorm: 7622277 Milliliter(s) Inj 07/08/2014 07/08/2014 In active Zithromax Z-Juancarlos 250 mg tablet RxNorm: 995352 1 Tablet(s) PO daily 07/08/2014 07/12/2014 Inactive zpack escitalopram 20 mg t ablet RxNorm: 911824 1 Tablet(s) PO daily 07/01/2014 01/26/2015 Inactive [SAVINGS FOR UNINSURED PATIENTS -- BIN:0 [id number], PCN: ASPROD1, Group: [id number], ID# [id number], Process claim through [employer], for questions: . THIS IS NOT INSURANCE.] escitalopram 20 mg t ablet RxNorm: 503529 TAKE ONE TABLET BY [facility] ONCE A DAY 07/01/2014 12/27/2014 In active Cipro 500 mg tablet RxNorm: 674081 1 Tablet(s) PO BID 06/07/2014 06/13/2014 Inactive probiotic bid x7 days [SAVINGS FOR UNINSURED PATIENTS -- BIN:[id number], PCN: ASPROD1, Group: [id number], ID# [id number], Process claim through [employer], for questions: . THIS IS NOT INSURANCE.] Cipro 500 mg tablet RxNorm: 618687 1 Tablet(s) PO BID 06/07/2014 06/06/2014 Inactive probiotic bid x7 days Diflucan 150 mg tablet RxNorm: 388854 1 Tablet(s) PO daily 05/31/2014 05/30/2014 Inactive Diflucan 150 mg tablet RxNorm: 795250 1 Tablet(s) PO daily 05/31/2014 06/04/2014 Inactive [SAVINGS FOR UNINSURED PATIENTS -- BIN:0 17989, PCN: ASPROD1, Group: [id number], ID# [id number], Process claim through [employer], for questions: . THIS IS NOT INSURANCE.] Synthroid 75 mcg tablet RxNorm: 532296 Tablet(s) PO TAKE ONE TABLET BY MOUTH EV 04/25/2014 05/30/2014 Inactive PLEASE DO NOT SUBSTITUTE levothyroxine 88 mcg tablet RxNorm: 402488 1 Tablet(s) PO daily TAKE ONE TABLET BY MOUTH EVERY DAY 04/24/2014 04/24/2014 Inactive ketorolac 60 mg/2 mL intramuscular solution RxNorm: 539898 Milliliter(s) IM 04/18/2014 04/18/2014 In active nystatin-triamcinolo ne 100,000 unit/g-0.1 % topical cream RxNorm: 5274648 APPLY TOPICALLY TWICE A DAY 04/14/2014 05/11/2014 Inactive nystatin-triamcinolo ne 100,000 unit/g-0.1 % topical cream RxNorm: 2648599 APPLY TOPICALLY TWICE A DAY 04/14/2014 05/11/2014 Inactive Vitamin D3 5,000 uni t tablet RxNorm: 992367 ONE BY MOUTH EVERY DAY 04/08/2014 04/02/2015 Inactive lorazepam 0.5 mg tablet RxNorm: 218359 1 Tablet(s) PO QHS 03/05/2014 No Stop Date Active one q 8 hr prn, may take an extra dose at bedtime if nec omeprazole 20 mg cap jacquelin,delayed release RxNorm: 526814 TAKE ONE CAPSULE BY M OUTH EVERY DAY 03/04/2014 01/27/2015 Inactive spironolactone 25 mg tablet RxNorm: 691651 1 Tablet(s) PO TIW 10/23/2013 2016 Inactive Zyprexa 5 mg tablet RxNorm: 949744 1/2 Tablet(s) PO QHS 10/23/2013 03/04/2014 Inactive escitalopram 20 mg t ablet RxNorm: 252857 1 Tablet(s) PO daily 10/23/2013 05/20/2014 Inactive Depakote 125 mg tabl et,delayed release RxNorm: 0069349 2 Tablet(s) PO QPM 10/23/2013 04/20/2014 In active Diflucan 150 mg tablet RxNorm: 910922 1 Tablet(s) PO daily 10/11/2013 10/17/2013 Inactive nystatin-triamcinolo ne 100,000 unit/g-0.1 % topical cream RxNorm: 6815377 1 Application TOP BID 10/11/2013 10/24/2013 Inactive spironolactone 25 mg tablet RxNorm: 873836 1 Tablet(s) PO daily 09/17/2013 10/22/2013 Inactive Depakote 125 mg tabl et,delayed release RxNorm: 9412080 2 Tablet(s) PO TID 08/20/2013 10/22/[address] valencia increased escitalopram 20 mg t ablet RxNorm: 356676 1 Tablet(s) PO daily 07/10/2013 10/22/2013 Inactive Synthroid 75 mcg tablet RxNorm: 663756 Tablet(s) PO TAKE ONE TABLET BY MOUTH EV ZAY04/17/2013 04/23/2014 Inactive Vitamin D3 5,000 uni t tablet RxNorm: 537481 1 Tablet(s) PO daily 03/28/2013 04/07/2014 Inactive Kenalog 40 mg/mL ericka pension for injection RxNorm: 5183512 Milliliter(s) Inj 03/20/2013 03/20/2013 In active omeprazole 20 mg cap jacquelin,delayed release RxNorm: 024998 Capsule(s) PO TAKE ON E CAPSULE BY MOUTH EVERY DAY 01/30/2013 08/19/2013 Inactive lorazepam 0.5 mg tablet RxNorm: 060496 1 Tablet(s) PO BID 01/22/2013 03/04/2014 Inactive one q 8 hr prn, may take an extra dose at bedtime if nec risperidone 0.5 mg t ablet RxNorm: 626736 1 Tablet(s) PO QHS 01/22/2013 08/19/2013 Inactive Silvadene 1 % Topica l Cream RxNorm: 901152 Cream TOP APPLY ON SK IN NEEDED 10/27/2012 01/21/2013 In active Cipro 500 mg tablet RxNorm: 503524 1 Tablet(s) PO BID 09/04/2012 09/03/2012 Inactive Cipro 500 mg tablet RxNorm: 533088 1 Tablet(s) PO BID 09/04/2012 09/10/2012 Inactive Rocephin 500 mg Solu tion for Injection RxNorm: 855424 1 Inj 08/22/2012 08/22/2012 Inactive Kenalog 40 mg/mL Ericka p for Injection RxNorm: 8642491 1 Milliliter(s) Inj 08/22/2012 08/22/2012 In active Rocephin 500 mg Solu tion for Injection RxNorm: 641416 1.5 Milliliter(s) Inj 05/22/2012 01/22/2013 In active Kenalog 40 mg/mL Ericka p for Injection RxNorm: 3944858 1 Milliliter(s) Inj 05/22/2012 05/22/2012 In active Synthroid 75 mcg tablet RxNorm: 071365 Tablet(s) PO 04/10/2012 04/16/2013 Inactive TAKE ONE TABLET BY MOUTH EVERY DAY name brand only Synthroid 75 mcg tablet RxNorm: 497637 Tablet(s) PO 04/09/2012 04/09/2012 Inactive TAKE ONE TABLET BY MOUTH EVERY DAY Vitamin D3 5,000 uni t tablet RxNorm: 551257 1 Tablet(s) PO daily 02/14/2012 03/09/2013 Inactive Vitamin D3 5,000 uni t tablet RxNorm: 220453 1 Tablet(s) PO daily 02/14/2012 02/13/2012 Inactive omeprazole 20 mg cap jacquelin,delayed release RxNorm: 640837 1 Capsule(s) PO daily 01/24/2012 01/29/2013 In active Vitamin D2 50,000 un it capsule RxNorm: 906693 1 Capsule(s) PO QW on e weekly x 3 months 12/07/2011 02/13/2012 Inactive one weekly x 3 months then 5000 units da natalie thereafter Synthroid 75 mcg tablet RxNorm: 511525 1 Tablet(s) PO daily 09/28/2011 03/25/2012 Inactive TAKE ONE TABLET BY MOUTH EVERY DAY ON AN EMPTY STOMACH omeprazole 20 mg cap jacquelin,delayed release RxNorm: 806325 1 Capsule(s) PO daily 07/20/2011 01/15/2012 In active Synthroid 75 mcg Tab RxNorm: 120556 Tablet(s) PO 2011 09/27/2011 Inactive TAKE ONE TABLET BY MOUTH EVERY DAY ON AN EMPTY STOMACH lorazepam 0.5 mg tablet RxNorm: 707639 1 Tablet(s) PO QDAY PRN 07/13/2011 01/21/2013 Inactive one q 8 hr prn, may take an extra dose a t bedtime if nec Synthroid 75 mcg Tab RxNorm: 931021 1 Tablet(s) PO daily 06/21/2011 07/18/2011 Inactive Silvadene 1 % Topica l Cream RxNorm: 325190 1 Application TOP PRN 06/01/2011 10/26/2012 Inactive dispense a small tube Depakote 125 mg tabl et,delayed release RxNorm: 5236651 3 Tablet(s) PO daily 06/01/2011 08/19/2013 In active lorazepam 0.5 mg Tab RxNorm: 960479 1 Tablet(s) PO PRN 06/01/2011 07/12/2011 Inactive one q 8 hr prn, may take an extra dose at bedtime if nec lorazepam 0.5 mg Tab RxNorm: 137747 Tablet(s) PO 04/20/2011 05/31/2011 Inactive one q 8 hr prn, may take an extra dose at bedtime if nec Influenza Virus Vacc ine 0.5 mL RxNorm: IM No Start Nathan e Active aspirin 81 mg Cap, D elayed Release RxNorm: 428610 1 Capsule(s) PO daily No Start Date Active omeprazole 20 mg cap jacquelin,delayed release RxNorm: 705704 1 Capsule(s) PO QHS No Start Date Active Lipitor 40 mg Tab RxNorm: 421666 1 Tablet(s) PO daily No Start Date Active Lumigan 0.01 % Eye D rops RxNorm: 3681803 Drop(s) OPH No Start Date Active Remeron 15 mg tablet RxNorm: 668425 1 Tablet(s) PO QHS No Start Date Active Lexapro 10 mg Tab RxNorm: 646861 1/2 Tablet(s) PO daily No Start Date 05/31/2011 Inactive pantoprazole 40 mg t ablet,delayed release RxNorm: 353710 1 Tablet(s) PO daily No Start Date 05/30/2014 Inactive Seroquel 100 mg tablet RxNorm: 800751 1 Tablet(s) PO QHS No Start Date 2016 Inactive Latuda 40 mg tablet RxNorm: 5157389 1 Tablet(s) PO daily No Start Date 09/22/2015 Inactive trifluoperazine 5 mg Tab RxNorm: 544248 1 Tablet(s) PO daily No Start Date 05/17/2011 Inactive Zithromax Z-Juancarlos 250 mg tablet RxNorm: 002294 Tablet(s) PO UD No Start Date 01/21/2013 Inactive trifluoperazine 5 mg Tab RxNorm: 938531 1 Tablet(s) PO QHS violette r Dr. [place] No Start Date 08/13/2012 Inactive timolol 0.5 % Eye Drops RxNorm: 225716 1 Drop(s) OPH daily No Start Date 05/31/2011 Inactive each eye Lasix 20 mg Tab RxNorm: 496683 1/2 Tablet(s) PO QDAY PRN No Start Date 05/31/2011 Inactive lorazepam 0.5 mg Tab RxNorm: 769161 Tablet(s) PO No Start Date 04/19/2011 Inactive one q 8 hr prn, may take an extra dose at bedtime if nec Lexapro 5 mg tablet RxNorm: 655771 1 Tablet(s) PO daily No Start Date 07/09/2013 Inactive risperidone 0.5 mg t ablet RxNorm: 775097 1 Tablet(s) PO QHS No Start Date 01/21/2013 Inactive Lexapro 10 mg Tab RxNorm: 538971 1 Tablet(s) PO daily No Start Date 05/17/2011 Inactive Pristiq 50 mg tablet ,extended release RxNorm: 075994 1/2 Tablet(s) PO QAM No Start Date 09/22/2015 Inactive Ditropan XL 5 mg 24 hr Tab RxNorm: 664989 1 Tablet(s) PO daily No Start Date 01/28/2014 Inactive Vesicare 5 mg tablet RxNorm: 525122 1 Tablet(s) PO daily No Start Date 01/28/2014 Inactive oxcarbazepine 150 mg Tab RxNorm: 015687 1 Tablet(s) PO QHS No Start Date 08/10/2011 Inactive levothyroxine 88 mcg tablet RxNorm: 720573 oral No S tart Date 05/04/2015 Inactive Depakote 125 mg Tab RxNorm: 8212942 1 Tablet(s) PO daily No Start Date 05/31/2011 Inactive Zyprexa 5 mg tablet RxNorm: 246089 1 q am 2 at hs Tablet(s) PO No Start Date 10/22/2013 Inactive Calcium 500 + D (D3) 500 mg-125 unit Tab RxNorm: 697955 1 Tablet(s) PO BID No Start Date 05/31/2011 Inactive KCL 10 meq RxNorm: 1 PO daily No Start Date 05/31/2011 Inactive Stelazine 1 mg tablet RxNorm: 335828 1 Tablet(s) PO QAM No Start Date 02/12/2015 Inactive Mary 180 mg Tab RxNorm: 907078 1 Tablet(s) PO daily No Start Date 05/31/2011 Inactive Centrum Silver Ultra Women's Tab RxNorm: 1 Tablet(s) PO BID No Start Date 01/21/2013 Inactive Vagifem 10 mcg Vagin al Tab RxNorm: 190333 Tablet(s) VAG No Start Date 01/21/2013 Inactive 2-3x per week per dr kumar omeprazole 20 mg Cap , Delayed Release RxNorm: 058071 1 Capsule(s) PO daily No Start Date 2011 Inactive Vitamin D2 50,000 un it capsule RxNorm: 735214 1 Capsule(s) PO QW on e weekly x 3 months No Start Date 12/06/2011 Inactive one weekly x 3 months levothyroxine 75 mcg Cap RxNorm: 156204 1 Capsule(s) PO daily No Start Date 01/21/2013 Inactive Medication Administered Medication Codes Instruc tions Start Date Status Kenalog 40 mg/mL suspension for injection RxNorm: 8228159 Milliliter 01/26/2016 No longer Active tetanus and diphtheria tox (PF) 5 Lf uni t-2 Lf unit/0.5 mL IM susp RxNorm: 605042 1injection 10/23/2014 No longer Active Kenalog 40 mg/mL suspension for injection RxNorm: 9487994 Milliliter 07/08/2014 No longer Active ketorolac 60 mg/2 mL intramuscular solution RxNorm: 660755 Milliliter 04/18/2014 No longer Active Kenalog 40 mg/mL suspension for injection RxNorm: 1939303 Milliliter 03/20/2013 No longer Active Rocephin 500 mg Solution for Injection RxNorm: 438957 1 08/22/2012 No longer A ctive Kenalog 40 mg/mL Susp for Injection RxNorm: 6746617 1Milliliter 08/22/2012 N o longer Active Kenalog 40 mg/mL Susp for Injection RxNorm: 8558245 1Milliliter 05/22/2012 N o longer Active Immunizations [...] completed Assessments Condition Codes Effectiv e Dates Allergic rhinitis [...] unspecified ICD-10: E03.9 ICD-9: 244.9 09/23/2015 Other usp (current) drug therapy ICD-10: Z79.899 ICD-9: V58.69 [...] IMPAIRED FASTING GLUCOSE ICD-9: 790.21 03/20/2013 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 ICD-9: V65.3 03/20/2013 ALLERGIC RHINITIS ICD-9: 477.9 [...] Pt states she had a very difficult Page - Pt saw her psychiatrist 04/19/11 breast complaint 05/18/2011 Pt states she had a very difficult Melvin - Pt saw her psychiatrist 04/19/11 Results Observation Observation Code Item Item Code Result Date Urine Culture Ucult Prel iminary NO Growth Day 1 09/11 Urine Culture Ucult Comp lete NO Growth Day 2 09/11 C A/B FLU 3481216 Influe nza A Scr Negative 08/09/2016 C A/B FLU [id number] Influe nza B Scr Negative 08/09/2016 C RAP A SC 8296157 Strep A Negative 01/26/2016 Lipid Ord30 CHOL 189 mg/dL 01/01/2016 Lipid Ord30 HDL 46.0 mg/dl 01/01/2016 Lipid Ord30 TRIG 111 mg/dL 01/01/2016 Lipid Ord30 LDL 121 mg/dL 01/01/2016 Lipid Ord30 C/HDL 4.1 Ratio 01/01/2016 Urine Culture Ucult Prel iminary NO Growth Day 1 12/26 Urine Culture Ucult Comp lete NO Growth Day 2 12/26 Valproic Acid Fof015 BHARATH PROIC 30.0 ug/ml 09/23/2015 Cbc With [...] 37.6 % 09/23/2015 Cbc With Differential Ord2 [place]% 9.7 % 09/23/2015 Cbc With Differential Ord2 [...] 2.92 K/ul 09/23/2015 Cbc With Differential Ord2 [place] ABS# 0.8 K/ul 09/23/2015 Cbc With Differential Ord2 Eos ABS# 0.2 K/ul 09/23/2015 Cbc With Differential Ord2 Baso ABS# 0.0 K/ul 09/23/2015 Cbc With Differential Ord2 New Analyzer Notice Please note new ref ranges s tarting 05-28-2015 due to implemntation of new five part differential hematolgy analyzer. 09/23/2015 Comp Metabolic Tom866 NA 138 mEq/L 09/23/2015 Comp Metabolic Pkk198 K 4.0 mEq/L 09/23/2015 Comp Metabolic Oml196 CL 105 mEq/L 09/23/2015 Comp Metabolic Euy088 CO2 26.0 mEq/L 09/23/2015 Comp Metabolic Isb766 AN ION GAP 11 09/23/2015 Comp Metabolic Sev057 GL UCOSE 87 mg/dL 09/23/2015 Comp Metabolic Ngw448 Cr eat 0.6 mg/dL 09/23/2015 Comp Metabolic Kpy486 eG FR 95 ml/min/1.73m2 09/22 Comp Metabolic Zot501 BUN 10 mg/dL 09/23/2015 Comp Metabolic Egw349 B/ C Ratio 15.6 Ratio 09/23/2015 Comp Metabolic Qtt186 CA LCIUM 8.6 mg/dL 09/23/2015 Comp Metabolic Qnn692 AL K PHOS 104 U/L 09/23/2015 Comp Metabolic Qyw001 T(SGOT) 17 U/L 09/23/2015 Comp Metabolic Dqq574 AL T(SGPT) 14 U/L 09/23/2015 Comp Metabolic Peh824 BI LI T 0.3 mg/dL 09/23/2015 Comp Metabolic Teb522 AL BUMIN 3.8 g/dL 09/23/2015 Comp Metabolic Swt990 TP RO 6.3 g/dL 09/23/2015 Comp Metabolic Guh869 GL OB 2.5 g/dL 09/23/2015 Comp Metabolic Mej280 A/ G Ratio 1.5 Ratio 09/23/2015 Comp Metabolic Amo172 Os mo 274 mOsmo 09/23/2015 Free T4 Tqd636 FREE T4 1.05 ng/dL 09/23/2015 Tsh Ord6 hTSH II 1.84 uIU/mL 09/23/2015 Culture Urine [id number] URI NE CULTURE SEE NOTES 07/10/2015 Culture Urine [id number] Con tinued Results 07/10/2015 Urine Culture Ucult Comp lete >100,000 col/ml aerobic grow th sent to ref lab 07/08/2015 Comp Metabolic Ztc173 NA 140 mEq/L 06/24/2015 Comp Metabolic Okn098 K 4.3 mEq/L 06/24/2015 Comp Metabolic Odt049 CL 103 mEq/L 06/24/2015 Comp Metabolic Rch399 CO2 32.0 mEq/L 06/24/2015 Comp Metabolic Peq772 AN ION GAP 9 06/24/2015 Comp Metabolic Pnb474 GL UCOSE 87 mg/dL 06/24/2015 Comp Metabolic Isx649 Cr eat 0.8 mg/dL 06/24/2015 Comp Metabolic Qir065 eG FR 76 ml/min/1.73m2 06/24 Comp Metabolic Ber474 BUN 10 mg/dL 06/24/2015 Comp Metabolic Hed825 B/ C Ratio 12.8 Ratio 06/24/2015 Comp Metabolic Xpl098 CA LCIUM 9.0 mg/dL 06/24/2015 Comp Metabolic Gtp322 AL K PHOS 93 U/L 06/24/2015 Comp Metabolic Prz913 T(SGOT) 16 U/L 06/24/2015 Comp Metabolic Gce580 AL T(SGPT) 10 U/L 06/24/2015 Comp Metabolic Wrw087 BI LI T 0.4 mg/dL 06/24/2015 Comp Metabolic Uhz451 AL BUMIN 3.8 g/dL 06/24/2015 Comp Metabolic Huh837 TP RO 6.2 g/dL 06/24/2015 Comp Metabolic Emx313 GL OB 2.4 g/dL 06/24/2015 Comp Metabolic Pcv935 A/ G Ratio 1.5 Ratio 06/24/2015 Comp Metabolic Rhg445 Os mo 278 mOsmo 06/24/2015 Cbc With [...] 87.3 fl 06/24/2015 Cbc With Differential Ord2 [place]% 10.0 % 06/24/2015 Cbc With Differential Ord2 [...] 3.51 K/ul 06/24/2015 Cbc With Differential Ord2 [place] ABS# 0.8 K/ul 06/24/2015 Cbc With Differential Ord2 Eos ABS# 0.4 K/ul 06/24/2015 Cbc With Differential Ord2 Baso ABS# 0.1 K/ul 06/24/2015 Cbc With Differential Ord2 New Analyzer Notice Please note new ref ranges s tarting 05-28-2015 due to implemntation of new five part differential hematolgy analyzer. 06/24/2015 Free T4 Zzl298 FREE T4 0.98 ng/dL 06/24/2015 Tsh Ord6 hTSH II 3.48 uIU/mL 06/24/2015 Lipid Ord30 CHOL 158 mg/dL 06/24/2015 Lipid Ord30 HDL 45.0 mg/dl 06/24/2015 Lipid Ord30 TRIG 129 mg/dL 06/24/2015 Lipid Ord30 LDL 87 mg/dL 06/24/2015 Lipid Ord30 C/HDL 3.5 Ratio 06/24/2015 Valproic Acid Bnq375 BHARATH PROIC 42.0 ug/ml 06/24/2015 TSH 6644279 TSH 1.199 uIU/ML 08/20/2013 FREE T4 6507064 FREE T4 1.06 NG/DL 08/20/2013 URINALYSIS NONAUTO W/O SCOPE 28552 Specific [place] 1.010 DateTime(Free Text in Apr) URINALYSIS NONAUTO W/O SCOPE 35917 PH 6.0 DateTime(Free Jayy t in ) URINALYSIS NONAUTO W/O SCOPE 56676 GLUCOSE neg DateTime(Free Jayy t in Apr) URINALYSIS NONAUTO W/O SCOPE 71586 Protein neg DateTime(Free Jayy t in Apr) URINALYSIS NONAUTO W/O SCOPE 65213 Blood 1+ DateTime(Free Text in Aprima) URINALYSIS NONAUTO W/O SCOPE 23427 Bilirubin neg DateTime(Free Jayy t in Apr) URINALYSIS NONAUTO W/O SCOPE 93099 Ketones neg DateTime(Free Jayy t in [employer]ima) URINALYSIS NONAUTO W/O SCOPE 86438 Urobilinogen neg DateTime(Free Text in [employer]ima) URINALYSIS NONAUTO W/O SCOPE 28784 Nitrite neg DateTime(Free Jayy t in Aprima) URINALYSIS NONAUTO W/O SCOPE 68462 Leukocytes 1+ DateTime(Free Text in [employer]ima) URINALYSIS NONAUTO W/O SCOPE 87723 Specific [place] 1.005 DateTime(Free Text in Aprima) URINALYSIS NONAUTO W/O SCOPE 90294 PH 7 DateTime(Free Text in Aprima) URINALYSIS NONAUTO W/O SCOPE 78521 GLUCOSE neg DateTime(Free Jayy t in Aprima) URINALYSIS NONAUTO W/O SCOPE 22159 Protein neg DateTime(Free Jayy t in Aprima) URINALYSIS NONAUTO W/O SCOPE 07849 Blood trace DateTime(Free T ext in Aprima) URINALYSIS NONAUTO W/O SCOPE 63773 Bilirubin neg DateTime(Free Jayy t in Aprima) URINALYSIS NONAUTO W/O SCOPE 09098 Ketones neg DateTime(Free Jayy t in Aprima) URINALYSIS NONAUTO W/O SCOPE 33523 Urobilinogen neg DateTime(Free Text in Aprima) URINALYSIS NONAUTO W/O SCOPE 01940 Nitrite neg DateTime(Free Jayy t in Aprima) URINALYSIS NONAUTO W/O SCOPE 10264 Leukocytes neg DateTime(Free Text in Aprima) UA 38075 Specific [place] 1.005 DateTime(Free Text in Aprima ) UA 04513 PH 6 DateTime(Free Text in Aprima ) UA 11099 GLUCOSE neg DateTime(Free Text in Aprima ) UA 40188 Protein neg DateTime(Free Text in Aprima ) UA 47209 Blood trace DateTime(Free Text in Aprima ) UA 04567 Bilirubin neg DateTime(Free Text in Aprima ) UA 04252 Ketones neg DateTime(Free Text in Aprima ) UA 75785 Urobilinogen 0.2 DateTime(Free Text in Aprima ) UA 58249 Nitrite neg DateTime(Free Text in Aprima ) UA 92236 Leukocytes neg DateTime(Free Text in Apr ) [...] rash 07/2011 Dermatologic No sores Psychiatric anxiety 12/0 07/2011 Psychiatric depression 1 06/18/2011 Eyes cataract [...] incontinence 12/01/2011 Dermatologic No rash Psychiatric anxiety 0712/2011 Psychiatric depression 0 12/01/2011 Cardiovascular No chest [...] Integument inspection/palpation Location: back 01/01/2016 [facility] back Full Exam - General 1994 Constitutional [...] clear 05/31/2014 None Full Exam - General 1995 Ears/Nose/Throat oral cavity/pharynx/larynx Overall: no masses 05/31/2014 [...] retractions 08/14/2012 None Full Exam - General 1995 Respiratory respiratory effort/rhythm Overall: normal rate 08/14/2012 [...] anxious 05/18/2011 None Procedures Procedure Codes Date ADMIN INFLUENZA VIRU S VAC CPT-4: Y6170Erejpof 02/20/2016 FLU VACC 4 BHARATH 3 YRS PLUS IM Formatting Model/CDA Sections, Assigned to/Juli Cerrato SNOMED CT: 21126662 CPT-4: 43559Jgsjquu 02/20/2016 TRIAMCINOLONE ACET I [place] NOS CPT-4: A9165Expvdxv 01/26/2016 URINALYSIS NONAUTO W /O SCOPE CPT-4: 53278Klyijtq 09/23/2015 URINALYSIS NONAUTO W /O SCOPE CPT-4: 74830Uypbhli 07/07/2015 ADMIN INFLUENZA VIRU S VAC Formatting Model/CDA Sections, Assigned to CPT-4: D1243Fgcgian 02/13/2015 FLU VACC 4 BHARATH 3 YRS PLUS IM Formatting Model/CDA Sections, Assigned to SNOMED CT: 61916878 CPT-4: 52570Ukiggof 02/13/2015 TENIVAC TD VACCINE N O PRSRV 7/> IM Assigned to CPT-4: 00470Eemrxlc 10/23/2014 URINALYSIS NONAUTO W /O SCOPE CPT-4: 81757Bwbsavc 10/23/2014 OCCULT BLOOD FECES CPT-4: 44353Vmgpsyg 10/08/2014 PPPS, SUBSEQ VISIT CPT-4: C7218Pobskhz 10/02/2014 TRIAMCINOLONE ACET I [place] NOS CPT-4: F7010Silnkcq 07/08/2014 URINALYSIS NONAUTO W /O SCOPE CPT-4: 20171Fqznipd 06/03/2014 THER/PROPH/DIAG INJ SC/IM CPT-4: 67144Waiwntc 04/18/2014 KETOROLAC TROMETHAMI NE INJ CPT-4: A8824Xuypcfo 04/18/2014 ADMIN INFLUENZA VIRU S VAC CPT-4: H3902Mxufpwx 01/29/2014 ADMIN PNEUMOCOCCAL V ACCINE Assigned to/Juli Cerrato CT: 29741262 CPT-4: J4669Hzbrvsm 01/29/2014 FLU VAC NO PRSV 4 VA L 3 YRS+ CPT-4: 36981Ekcboxg 01/29/2014 URINALYSIS NONAUTO W /O SCOPE CPT-4: 13519Jdncqoy 11/12/2013 ROUTINE VENIPUNCTURE CPT-4: 18602Gdjwoqr 08/20/2013 TRIAMCINOLONE ACET I [place] NOS CPT-4: C3846Gxupxyk 03/20/2013 THER/PROPH/DIAG INJ SC/IM CPT-4: 08058Rddrnzu 03/20/2013 URINALYSIS NONAUTO W /O SCOPE CPT-4: 92946Ytztixi 03/01/2013 URINALYSIS NONAUTO W /O SCOPE CPT-4: 33481Fmaysem 09/04/2012 TRIAMCINOLONE ACET I [place] NOS CPT-4: Y6761Ghfqidq 08/22/2012 ROCEPHIN, PER 250 MG CPT-4: Q4623Ooxvssk 08/22/2012 TRIAMCINOLONE ACET I [place] NOS CPT-4: D2659Qzpwxet 05/22/2012 THER/PROPH/DIAG INJ SC/IM CPT-4: 01634Qknloth 05/22/2012 ROCEPHIN, PER 250 MG CPT-4: Y8821Gapyxty 05/22/2012 PRESCRIP TRANSMIT A ERX SY CPT-4: U9893Bjtwihq 05/22/2012 ADMIN INFLUENZA VIRU S VAC CPT-4: Z5816Prjbteo 02/23/2012 FLULAVAL VACC, 3 YRS & >, IM CPT-4: K1290Wzewaij 02/23/2012 PRESCRIP TRANSMIT A ERX SY CPT-4: I1260Keivgto 06/01/2011 Vital Signs Date Vital 10/19/2016 Blood Pressure 1: 126/64 Code: 8480-6 Heart Rate 1: 93 bpm Height: 5' SpO2: 97% Weight: 08/09/2016 Blood Pressure 1: 116/68 Code: 8480-6 BMI: 40.2 Code: 80161-8 Heart Rate 1: 98 bpm Height: 5' SpO2: 97% Temperature: 37.5 (C ) / 99.5 (F) Weight: 206 lbs 07/20/2016 Blood Pressure 1: 126/74 Code: 8480-6 BMI: 40.2 Code: 16018-4 Heart Rate 1: 94 bpm Height: 5' SpO2: 95% Weight: 206 lbs 05/27/2016 Blood Pressure 1: 136/76 Code: 8480-6 BMI: 39.1 Code: 80972-5 Heart Rate 1: 95 bpm Height: 5' SpO2: 98% Weight: 200 lbs 04/29/2016 Blood Pressure 1: 128/76 Code: 8480-6 Heart Rate 1: 72 bpm Height: SpO2: 96% Weight: 04/02/2016 Blood Pressure 1: 138/88 Code: 8480-6 BMI: 38.5 Code: 52561-0 Heart Rate 1: 88 bpm Height: 5' SpO2: 96% Weight: 197 lbs 03/18/2016 Blood Pressure 1: 148/88 Code: 8480-6 BMI: 38.5 Code: 05668-5 Heart Rate 1: 66 bpm Height: 5' SpO2: 98% Weight: 197 lbs 01/26/2016 BMI: 39.5 Code: 32112-0 Height: 5' Weight: 202 lbs 01/01/2016 Blood Pressure 1: 120/80 Code: 8480-6 BMI: 40.0 Code: 37203-2 Heart Rate 1: 86 bpm Height: 5' SpO2: 94% Weight: 205 lbs 12/25/2015 Blood Pressure 1: 138/80 Code: 8480-6 BMI: 40.0 Code: 63874-0 Height: 5' Weight: 205 lbs 12/08/2015 Blood Pressure 1: 122/72 Code: 8480-6 Heart Rate 1: 100 bpm Height: 5' SpO2: 98% 09/23/2015 Blood Pressure 1: 130/82 Code: 8480-6 BMI: 40.2 Code: 06827-1 Heart Rate 1: 77 bpm Height: 5' SpO2: 97% Weight: 206 lbs 06/19/2015 Blood Pressure 1: 128/80 Code: 8480-6 BMI: 40.8 Code: 66897-6 Heart Rate 1: 80 bpm Height: 5' SpO2: 94% Weight: 209 lbs 05/19/2015 Blood Pressure 1: 128/78 Code: 8480-6 BMI: 41.0 Code: 55344-9 Heart Rate 1: 103 bpm Height: 5' SpO2: 97% Weight: 210 lbs 04/28/2015 Blood Pressure 1: 12876 Code: 8480-6 BMI: 41.4 Code: 51735-5 Heart Rate 1: 72 bpm Height: 5' Weight: 212 lbs 03/18/2015 Blood Pressure 1: 12878 Code: 8480-6 BMI: 41.6 Code: 06270-8 Heart Rate 1: 74 bpm Height: 5' SpO2: 97% Weight: 213 lbs 02/27/2015 Blood Pressure 1: 128/70 Code: 8480-6 BMI: 41.2 Code: 55763-9 Heart Rate 1: 74 bpm Height: 5' SpO2: 95% Weight: 211 lbs 02/13/2015 Blood Pressure 1: 148/80 Code: 8480-6 BMI: 41.2 Code: 04363-7 Heart Rate 1: 90 bpm Height: 5' SpO2: 95% Weight: 211 lbs 11/18/2014 Blood Pressure 1: 124/60 Code: 8480-6 BMI: 40.8 Code: 64594-7 Heart Rate 1: 75 bpm Height: 5' SpO2: 97% Weight: 209 lbs 10/23/2014 Blood Pressure 1: 118/70 Code: 8480-6 BMI: 43.3 Code: 26862-6 Heart Rate 1: 78 bpm Height: 4'10" SpO2: 96% Temperature: 36.5 (C ) / 97.7 (F) Weight: 207 lbs 10/02/2014 Blood Pressure 1: 11878 Code: 8480-6 BMI: 42.5 Code: 48667-4 Heart Rate 1: 77 bpm Height: 4'10" SpO2: 97% Waist Measure (cm): 107 cm Weight: 207 lbs 09/25/2014 Blood Pressure 1: 140/78 Code: 8480-6 Blood Pressure 2: 140/80 Code: 8480-6 09/23/2014 Blood Pressure 1: 106/62 Code: 8480-6 BMI: 42.9 Code: 92172-1 Heart Rate 1: 99 bpm Height: 4'10" SpO2: 97% Weight: 209 lbs 07/08/2014 Blood Pressure 1: 136/82 Code: 8480-6 BMI: 43.6 Code: 03664-7 Heart Rate 1: 72 bpm Height: 4'10" SpO2: 96% Temperature: 37.0 (C ) / 98.6 (F) Weight: 212 lbs 05/31/2014 Blood Pressure 1: 140/88 Code: 8480-6 BMI: 41.1 Code: 12729-7 Heart Rate 1: 92 bpm Height: 4'10" Weight: 200 lbs 04/18/2014 Blood Pressure 1: 132/78 Code: 8480-6 BMI: 41.9 Code: 39741-6 Heart Rate 1: 80 bpm Height: 4'10" Weight: 204 lbs 03/05/2014 Blood Pressure 1: 128/80 Code: 8480-6 BMI: 41.3 Code: 21480-0 Heart Rate 1: 60 bpm Height: 4'10" SpO2: 96% Weight: 201 lbs 01/29/2014 Blood Pressure 1: 142/88 Code: 8480-6 BMI: 41.5 Code: 25287-2 Heart Rate 1: 80 bpm Height: 4'10" Weight: 202 lbs 10/23/2013 Blood Pressure 1: 110/56 Code: 8480-6 BMI: 41.5 Code: 10981-4 Heart Rate 1: 76 bpm Height: 4'10" Weight: 202 lbs 10/11/2013 Blood Pressure 1: 124/74 Code: 8480-6 BMI: 41.5 Code: 77522-4 Heart Rate 1: 76 bpm Height: 4'10" Weight: 202 lbs 09/17/2013 Blood Pressure 1: 140/84 Code: 8480-6 Heart Rate 1: 80 bpm Weight: 203 lbs 08/27/2013 Blood Pressure 1: 124/80 Code: 8480-6 Heart Rate 1: 72 bpm Weight: 08/20/2013 Blood Pressure 1: 110/50 Code: 8480-6 BMI: 40.3 Code: 14859-4 Heart Rate 1: 72 bpm Height: 4'10" Weight: 196 lbs 07/10/2013 Blood Pressure 1: 110/56 Code: 8480-6 Heart Rate 1: 82 bpm SpO2: 95% Weight: 03/20/2013 Blood Pressure 1: 158/80 Code: 8480-6 Heart Rate 1: 72 bpm Temperature: 37.1 (C) / 98.8 (F) Weight: 189 lbs 03/07/2013 Blood Pressure 1: 108/66 Code: 8480-6 BMI: 38.8 Code: 67972-1 Heart Rate 1: 76 bpm Height: 4'10" Weight: 189 lbs 01/22/2013 Blood Pressure 1: 110/68 Code: 8480-6 BMI: 38.8 Code: 57179-3 Heart Rate 1: 76 bpm Height: 4'10" Weight: 189 lbs 08/22/2012 Blood Pressure 1: 126/68 Code: 8480-6 BMI: 37.0 Code: 33515-2 Heart Rate 1: 76 bpm Height: 4'10" Temperature: 36.7 (C ) / 98.0 (F) Weight: 180 lbs 08/14/2012 Blood Pressure 1: 106/64 Code: 8480-6 BMI: 36.6 Code: 52433-1 Heart Rate 1: 72 bpm Height: 4'10" Weight: 178 lbs 05/22/2012 Blood Pressure 1: 124/72 Code: 8480-6 Heart Rate 1: 80 bpm Temperature: 36.4 (C) / 97.6 (F) Weight: 185 lbs 04/17/2012 Blood Pressure 1: 120/66 Code: 8480-6 BMI: 37.0 Code: 88976-3 Heart Rate 1: 65 bpm Height: 4'10" SpO2: 98% Weight: 180 lbs 12/01/2011 Blood Pressure 1: 122/58 Code: 8480-6 Heart Rate 1: 76 bpm Respiratory Rate: 24 bpm Weight: 175 lbs 08/11/2011 Blood Pressure 1: 98/44 Code: 8480-6 BMI: 34.1 Code: 80731-9 Heart Rate 1: 86 bpm Height: 4'10" Respiratory Rate: 16 bpm Weight: 166 lbs 06/01/2011 Blood Pressure 1: 104/62 Code: 8480-6 BMI: 34.8 Code: 26968-6 Heart Rate 1: 72 bpm Height: 4'10" Respiratory Rate: 16 bpm Weight: 169 lbs 8 oz 05/18/2011 Blood Pressure 1: 130/66 Code: 8480-6 BMI: 34.8 Code: 18245-8 Heart Rate 1: 64 bpm Height: 4'11" [...] None Hospital Follow Up _ Oth er: [facility] 02/13/2015 None back pain Quality [...] days ago 08/27/2013 fell on cement at [employer] ankle pain Pertinent Findings stiffness 08/27/2013 None [...] Hospital Follow Up _ Oth er: from [facility] 08/20/2013 started on remeron and zyprexa changed [...] t states that since her stay in [facility] - she is much [...] Exercise no exercise 03/20/2013 None hypothyroid Quality synchronizer kellie 03/07/2013 None hypothyroid Severity mil d [...] Findings Denies edema 03/07/2013 None hypothyroid Quality synchronizer kellie 01/22/2013 None hypothyroid Severity mil d [...] known all ergens 08/22/2012 None hypothyroid Quality synchronizer kellie 08/14/2012 None hypothyroid Severity mil d [...] decreased energy level 05/22/2012 None hypothyroid Quality synchronizer kellie 04/17/2012 None hypothyroid Severity mil d [...] Pertinent Findings stiffness 12/01/2011 None hypothyroid Quality synchronizer kellie 08/11/2011 None hypothyroid Severity mil d [...] Encounters Encounter Performer Loca tion Codes Date ([id number]) 18033 EST. P ATIENT, LEVEL III Diagnosis: Unsteadiness on feet[ICD10: R26.81] Diagnosis: Unspecified fracture of left calcaneus, initial encounter for closed fracture[ICD10: S92.002A] Diagnosis: Allergic rhinitis due to pollen[ICD10: J30.1] Michelle Littlejohn MD, [facility] CPT-4: 16380 10/19/2016 ([id number]) 50177 EST. P ATIENT, LEVEL III Diagnosis: Cough[ICD10: R05] Diagnosis: Fever, unspecified[ICD10: R50.9] Diagnosis: Acute recurrent maxillary sinusitis[ICD10: J01.01] Michelle Littlejohn MD, [facility] CPT-4: 01068 08/09/2016 ([id number]) 42630 EST. P ATIENT, LEVEL III Diagnosis: Essential (primary) hypertension[ICD10: I10] Diagnosis: Allergic rhinitis due to pollen[ICD10: J30.1] Diagnosis: Bipolar disorder, current episode depressed, moderate[ICD10: F31.32] Michelle Littlejohn MD, [facility] CPT-4: 09062 07/20/2016 ([id number]) 57616 EST. P ATIENT, LEVEL III Diagnosis: Cough[ICD10: R05] Diagnosis: Bipolar disorder, current episode depressed, moderate[ICD10: F31.32] Diagnosis: Acute upper respiratory infection, unspecified[ICD10: J06.9] Michelle Littlejohn MD, [facility] CPT-4: 22312 05/27/2016 ([id number]) 05688 EST. P ATIENT, LEVEL III Diagnosis: Bipolar disorder, current episode manic without psychotic features, moderate[ICD10: F31.12] Diagnosis: Essential (primary) hypertension[ICD10: I10] Michelle Littlejohn MD, [facility] CPT-4: 18231 04/29/2016 ([id number]) 82019 EST. P ATIENT, LEVEL III Diagnosis: Bipolar disorder, current episode depressed, moderate[ICD10: F31.32] Michelle Littlejohn MD, [facility] CPT-4: 08241 04/02/2016 ([id number]) 39833 EST. P ATIENT, LEVEL IV Diagnosis: Bipolar disorder, current episode manic without psychotic features, moderate[ICD10: F31.12] Diagnosis: Essential (primary) hypertension[ICD10: I10] Michelle Littlejohn MD, [facility] CPT-4: 95151 03/18/2016 ([id number]) 40003 EST. P ATIENT, LEVEL III Diagnosis: Acute laryngopharyngitis[ICD10: J06.0] Diagnosis: Cough[ICD10: R05] Diagnosis: Allergic rhinitis due to pollen[ICD10: J30.1] Michelle Littlejohn MD, [facility] CPT-4: 10201 01/26/2016 ([id number]) Miscellaneou s no charge Diagnosis: Other seborrheic keratosis[ICD10: L82.1] Michelle Littlejohn MD, [facility] CPT-4: 15202 01/01/2016 ([id number]) 39190 EST. P ATIENT, LEVEL III Diagnosis: Essential (primary) hypertension[ICD10: I10] Diagnosis: Mixed hyperlipidemia[ICD10: E78.2] Diagnosis: Other obesity due to excess calories[ICD10: E66.09] Diagnosis: Frequency of micturition[ICD10: R35.0] Michelle Littlejohn MD, [facility] CPT-4: 81506 12/25/2015 ([id number]) 34507 EST. P ATIENT, LEVEL IV Diagnosis: Gastro-esophageal reflux disease without esophagitis[ICD10: K21.9] Diagnosis: Essential (primary) hypertension[ICD10: I10] Diagnosis: Generalized anxiety disorder[ICD10: F41.1] Michelle Littlejohn MD, [facility] CPT-4: 01455 12/08/2015 ([id number]) 57975 EST. P ATIENT, LEVEL IV Diagnosis: Bipolar disorder, current episode depressed, moderate[ICD10: F31.32] Diagnosis: Essential (primary) hypertension[ICD10: I10] Diagnosis: Hypothyroidism, unspecified[ICD10: E03.9] Diagnosis: Allergic rhinitis due to pollen[ICD10: J30.1] Diagnosis: Dysuria[ICD10: R30.0] Michelle Littlejohn MD, [facility] CPT-4: 06719 09/23/2015 ([id number]) 90312 EST. P ATIENT, LEVEL III Diagnosis: Essential (primary) hypertension[ICD10: I10] Diagnosis: Hypothyroidism, unspecified[ICD10: E03.9] Diagnosis: Mixed hyperlipidemia[ICD10: E78.2] Diagnosis: Bipolar disorder, current episode depressed, moderate[ICD10: F31.32] Michelle Littlejohn MD, [facility] CPT-4: 67446 06/19/2015 ([id number]) 25031 EST. P ATIENT, LEVEL III Diagnosis: Essential (primary) hypertension[ICD10: I10] Diagnosis: Major depressive disorder, single episode, unspecified[ICD10: F32.9] Michelle Littlejohn MD, [facility] CPT-4: 46461 05/19/2015 ([id number]) 08291 EST. P ATIENT, LEVEL III Diagnosis: Rash and other nonspecific skin eruption[ICD10: R21] Jodie Littlejohn MD, [facility] CPT-4: 91557 04/28/2015 ([id number]) 34086 EST. P ATIENT, LEVEL III Diagnosis: Essential (primary) hypertension[ICD10: I10] Diagnosis: Bipolar disorder, current episode depressed, moderate[ICD10: F31.32] Michelle Littlejohn MD, [facility] CPT-4: 82307 03/18/2015 ([id number]) 07902 EST. P ATIENT, LEVEL II Diagnosis: Other seborrheic keratosis[ICD10: L82.1] Michelle Littlejohn MD, [facility] CPT-4: 26640 02/27/2015 ([id number]) 19778 EST. P ATIENT, LEVEL IV Diagnosis: Hypothyroidism, unspecified[ICD10: E03.9] Diagnosis: Bipolar disorder, current episode depressed, moderate[ICD10: F31.32] Michelle Littlejohn MD, [facility] CPT-4: 16478 02/13/2015 ([id number]) 90125 EST. P ATIENT, LEVEL III Diagnosis: Yeast infection involving the vagina and surrounding area[ICD9: 112.1] Diagnosis: Back pain[ICD9: 724.5] Diagnosis: Muscle strain[ICD9: 848.9] Katerin Littlejohn MD, [facility] CPT-4: 75914 11/18/2014 ([id number]) 58752 EST. P ATIENT, LEVEL IV Diagnosis: Dog bite[ICD9: 879.8] Diagnosis: CELLULITIS OF ARM[ICD9: 682.3] Diagnosis: DYSURIA[ICD9: 788.1] Katerin Littlejohn MD, [facility] CPT-4: 87818 10/23/2014 ([id number]) Miscellaneou s no charge Diagnosis: ESSENTIAL HYPERTENSION[ICD9: 401.9] Jodie Littlejohn MD, [facility] CPT- 4: 33207 09/25/2014 ([id number]) 62307 EST. P ATIENT, LEVEL IV Diagnosis: Hypotension[ICD9: 458.9] Diagnosis: DIZZINESS AND GIDDINESS[ICD9: 780.4] Diagnosis: HYPOTHYROIDISM[ICD9: 244.9] Michelle Littlejohn MD, [facility] CPT- 4: 41766 09/23/2014 ([id number]) 93548 EST. P ATIENT, LEVEL III Diagnosis: ACUTE URI[ICD9: 465.9] Diagnosis: COUGH[ICD9: 786.2] Diagnosis: EDEMA[ICD9: 782.3] Michelle Littlejohn MD, [facility] CPT-4: 04384 07/08/2014 ([id number]) 26281 EST. P ATIENT, LEVEL IV Diagnosis: ESSENTIAL HYPERTENSION[ICD9: 401.9] Diagnosis: HYPOTHYROIDISM[ICD9: 244.9] Diagnosis: Dysuria[ICD9: 788.1] Jodie Littlejohn MD, [facility] CPT-4: 21817 05/31/2014 ([id number]) 23043 EST. P ATIENT, LEVEL III Diagnosis: Back pain[ICD9: 724.5] Jodie Littlejohn MD, [facility] CPT-4: 09135 04/18/2014 ([id number]) 82830 EST. P ATIENT, LEVEL IV Diagnosis: Back pain[ICD9: 724.5] Diagnosis: Scab[ICD9: 782.8] Diagnosis: BIPOLAR AFFECTIVE, MANIC, UNSPEC[ICD9: 296.40] Jodie Littlejohn MD, [facility] CPT-4: 60481 03/05/2014 ([id number]) 03075 EST. P ATIENT, LEVEL III Diagnosis: ESSENTIAL HYPERTENSION[ICD9: 401.9] Jodie Littlejohn MD, [facility] CPT- 4: 27839 01/29/2014 ([id number]) 40063 EST. P ATIENT, LEVEL IV Diagnosis: ESSENTIAL HYPERTENSION[SNOMED: 10938592] Diagnosis: EDEMA[ICD9: 782.3] Diagnosis: DEPRESSIVE DISORDER NEC[ICD9: 311] Jodie Littlejohn MD, [facility] CPT- 4: 04772 10/23/2013 08038 EST. PATIENT, LEVEL II Diagnosis: Rash[ICD9: 782.1] Michelle Littlejohn MD, [facility] CPT-4: 82919 10/11/2013 ([id number]) 70268 EST. P ATIENT, LEVEL III Diagnosis: EDEMA[ICD9: 782.3] Jodie Littlejohn MD, [facility] CPT-4: 21666 09/17/2013 ([id number]) 39805 EST. P ATIENT, LEVEL III Diagnosis: EDEMA[ICD9: 782.3] Diagnosis: Left ankle pain[ICD9: 719.47] Michelle Littlejohn MD, [facility] CPT- 4: 47943 08/27/2013 ([id number]) 49044 EST. P ATIENT, LEVEL IV Diagnosis: BIPOLAR AFFECTIVE, MANIC, UNSPEC[ICD9: 296.40] Diagnosis: HYPOTHYROIDISM[ICD9: 244.9] Jodie Littlejohn MD, [facility] CPT-4: 76463 08/20/2013 ([id number]) 41423 EST. P ATIENT, LEVEL IV Diagnosis: BIPOLAR AFFECTIVE, MANIC, UNSPEC[ICD9: 296.40] Diagnosis: DEPRESSIVE DISORDER NEC[ICD9: 311] Jodie Littlejohn MD, [facility] CPT- 4: 92990 07/10/2013 ([id number]) 78154 EST. 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 P ATIENT, LEVEL IV Diagnosis: Elevated fasting glucose[ICD9: 790.21] Diagnosis: HYPOTHYROIDISM[ICD9: 244.9] Diagnosis: DEPRESSIVE DISORDER NEC[ICD9: 311] Jodie Littlejohn MD, [facility] CPT- 4: 42204 03/07/2013 ([id number]) 67975 EST. P ATIENT, LEVEL III Diagnosis: HYPOTHYROIDISM[ICD9: 244.9] Diagnosis: DEPRESSIVE DISORDER NEC[ICD9: 311] Jodie Littlejohn MD, [facility] CPT- 4: 12490 01/22/2013 ([id number]) 19590 EST. P ATIENT, LEVEL III Diagnosis: ACUTE URI[ICD9: 465.9] Diagnosis: COUGH[ICD9: 786.2] Michelle Littlejohn MD, [facility] CPT-4: 43504 08/22/2012 ([id number]) 95490 EST. P ATIENT, LEVEL IV Diagnosis: ESSENTIAL HYPERTENSION[SNOMED: 54612813] Diagnosis: HYPERLIPIDEMIA[ICD9: 272.4] Jodie Littlejohn MD, [facility] CPT-4: 34164 08/14/2012 ([id number]) 06640 EST. P ATIENT, LEVEL III Diagnosis: ACUTE URI[ICD9: 465.9] Jodie Littlejohn MD, [facility] CPT-4: 75880 05/22/2012 ([id number]) 61293 EST. P ATIENT, LEVEL III Diagnosis: ESSENTIAL HYPERTENSION[SNOMED: 56331278] Jodie Littlejohn MD, [facility] CPT-4: 70462 04/17/2012 ([id number]) 03573 EST. P ATIENT, LEVEL IV Diagnosis: HYPOTHYROIDISM[ICD9: 244.9] Diagnosis: HYPERLIPIDEMIA[ICD9: 272.4] Diagnosis: DEPRESSIVE DISORDER NEC[ICD9: 311] Diagnosis: Vitamin D deficiency[ICD9: 268.9] Jodie Littlejohn MD, [facility] CPT-4: 90800 12/01/2011 ([id number]) 14695 EST. 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 P ATIENT, LEVEL IV Diagnosis: MASTODYNIA[ICD9: 611.71] Diagnosis: DEPRESSIVE DISORDER NEC[ICD9: 311] Diagnosis: Flatulence[ICD9: 787.3] Diagnosis: ABRASION HAND[ICD9: 914.0] Jodie Littlejohn MD, [facility] CPT-4: 20073 06/01/2011 03081 EST. PATIENT, LEVEL IV Diagnosis: Breast pain in female[ICD9: 611.71] Diagnosis: DEPRESSIVE DISORDER NEC[ICD9: 311] Diagnosis: HYPERLIPIDEMIA[ICD9: 272.4] Diagnosis: HYPOTHYROIDISM[ICD9: 244.9] Jodie Littlejohn MD, [facility] CPT-4: 82049 05/18/2011 Plan of Care Planned Activity Notes C odes Status Date Visit Plan: Fracture of left heel-gait i nstability-seeing Dr Artis-no surgery required-patient is using wheelchair or walker with stand by assist-home health to continue working with her. Zbcwvxdup-xgyyoau-uhcqrcxl daily anti histamine 10/19/2016 Appointment: Michelle Garcia WPtel: [phone] (30 min) Complex 10/19/2016 Patient Education: Patient [...] show improvement. 08/09/2016 Appointment: Michelle Garcia WPtel: [address] [place], [place] [phone] (15 min) Moderate 08/09/2016 Patient Education: Patient [...] any concerns. 07/20/2016 Appointment: Michelle Garcia WPtel: [address] [place], [place] [phone] (30 min) Complex 07/20/2016 Patient Education: Patient [...] stable-no changes 05/27/2016 Appointment: Michelle Garcia WPtel: [phone] (30 min) Complex 05/27/2016 Patient Education: Patient [...] if needed 04/29/2016 Appointment: Michelle Garcia WPtel: [address] [place], [place] [phone] (30 min) Complex 04/29/2016 Patient Education: Patient [...] of plan. 04/02/2016 Appointment: Michelle Garcia WPtel: [address] [place], [place] [phone] (30 min) Complex 04/02/2016 Patient Education: Patient [...] at home. 03/18/2016 Appointment: Michelle Garcia WPtel: [address] [place], [place] [phone] (30 min) Complex 03/18/2016 Patient Education: Patient [...] the office 01/26/2016 [facility] [phone] [phone] [facility] min[facility] 01/26/2016 Patient Education: Patient Medication Summary Completed [...] current medications. 12/08/2015 App[facility]ment: [phone] (15 min) Moderate 12/08/2015 Patient Education: [...] of plan. 04/28/2015 Appointment: Michelle Garcia WPtel: [address] [place], [place] [phone] (15 min) Moderate 04/28/2015 Patient Education: Patient [...] previous levels of control.Bipolar, depression-patients sees Dr Valnecia-recent inpatient stay at [facility]-now on latuda and doing well-no changes [...] Patient Education: Hypertension Completed 09/25/2014 Visit Plan: Izjacvlvzdu-zdkeyttgv-gmvdp labs-increase po fluids-monitor blood pressure and pulse-return [...] Care Plan: COMPLETE CBC AUTOMATED LOINC : 46560-1 Ordered 09/23/2014 Care Plan: URINALYSIS NONAUTO W/O SCOPE LOINC : 20198-3 Ordered 09/23/2014 Visit Plan: URI - Pt [...] Completed 07/08/2014 Appointment: Jodie Littlejohn WPtel: [phone] [id number] [place] Lab Draw 06/03/2014 Patient Education: Patient [...] home. 05/31/2014 Appointment: Jodie Littlejohn WPtel: [phone] [facility] Follow up 05/31/2014 Patient Education: Patient Medication Summary Completed 05/31/2014 Patient Education: Hypertension Completed 05/31/2014 Appointment: Jodie Littlejohn WPtel: [phone] [facility] [place] Follow up 05/07/2014 Visit Plan: [facility] [place] twice daily x 7 days DRINK LOTS of water - at least 16 ounces with each dose of ibuprofen (motrin)you need to get a deep tissue massage.heat to neck and lower back tiger balm for your neck and back muscles. 04/18/2014 Appointment: Jodie Littlejohn WPtel: [facility]5 [facility] Follow up 04/18/2014 Patient Education: Patient Medication Summary Completed 04/18/2014 Care Plan: ASSAY OF CK (CPK) Ordered 04/18/2014 Care Plan: ASSAY DIPROPYLACETIC ACID Ordered 04/18/2014 Care Plan: ASSAY OF MYOGLOBIN Ordered 04/18/2014 Care Plan: COMPLETE CBC AUTOMATED LOINC : 48981-0 Ordered 04/18/2014 Visit Plan: Back pain - [...] not healing. 03/05/2014 Appointment: Jodie Littlejohn WPtel: [facility] Follow up 03/05/2014 Patient Education: Patient Medication Summary Completed 03/05/2014 Visit Plan: Hypertension - well controll ed - continue with current medications, continue with no added salt diet. Pt has been encouraged to exercise daily.The pt has been advised to call the office if there are any acute concerns about change in blood pressure readings at home. 01/29/2014 Appointment: Jodie Littlejohn WPtel: [facility] Follow up 01/29/2014 Patient Education: Patient Medication [...] of anxiety/paranoia. 2013 Appointment: [facility]od[facility] Littlejohn [facility]Ptel[facility] [facility] 10/23/2013 Patient Education: Patient Medication Summary Completed 10/23/2013 Patient Education: Hypertension Completed 10/23/2013 Appointment: Jodie Littlejohn WPtel: [phone] [facility] Follow up 10/16/2013 Visit Plan: Rash-culture today [...] monitor symptoms. 2013 Appointment: [facility] Littlejohn [facility]el[phone] Follow [facility] 09/17/2013 Patient Education: Patient Medication [...] elevated leg. 08/27/2013 Appointment: Michelle Garcia WPtel: [address] [place], [place] [phone] Other 08/27/2013 Patient Education: Patient Medication Summary Completed 08/27/2013 Appointment: Jodie Littlejohn WPtel: [address] [place], [place] [phone] Hospital follow up 08/22/2013 Visit Plan: Bipolar [...] of control. 08/20/2013 Appointment: Jodie Littlejohn WPtel: [address] [place], [place] [phone] Other 08/20/2013 Patient Education: Patient Medication Summary Completed 08/20/2013 Appointment: Jodie Littlejohn WPtel: [address] [place], [place] [phone] Follow up 08/07/2013 Visit Plan: Bipolar Mood [...] will not be seeing the physician in [place] any more - had actually stopped seeing the physician in [place] as of 2-3 weeks ago.She will be seeing Dr. Cabrera in [place]. 07/10/2013 Appointment: Jodie Littlejohn WPtel: [facility] Follow up 07/10/2013 Patient Education: Patient Medication [...] the office. 03/20/2013 Appointment: Michelle Garcia WPtel: [facility]5 [phone] Other 03/20/2013 Patient Education: Patient Medication Summary [...] check hgba1c. 03/07/2013 Appointment: Jodie Littlejohn WPtel: [facility] Follow up 03/07/2013 Patient Education: Patient Medication Summary Completed 03/07/2013 Appointment: Michelle Garcia WPtel: [phone] Lab Draw 03/01/2013 Patient Education: Patient Medication [...] current medications. 01/22/2013 Appointment: Jodie Littlejohn WPtel: [phone] [phone] Follow up 01/22/2013 Patient Education: Patient Medication [...] the office. 08/22/2012 [facility]ment[phone] [facility] 08/22/2012 Patient Education: Patient Medication Summary [...] medications. 08/14/2012 Appointment: Jodie Littlejohn WPtel: [phone] [facility] Follow up 08/14/2012 Patient Education: Patient Medication [...] home. 04/17/2012 Appointment: [facility]john [facility]el[phone] [place] Other 04/17/2012 Patient Education: Hypertension Completed 04/17/2012 Patient Education: Patient Medication Summary Completed 04/17/2012 Appointment: [facility] Littlejohn [facility]Ptel[phone] [place] Injection 02/23/2012 Patient Education: Patient Medication [...] to hany. 12/01/2011 Appointment: Jodie Littlejohn WPtel: [address] [place] [address] Other 12/01/2011 Patient Education: Patient Medication Summary [...] current medications. 08/11/2011 Appointment: Jodie Littlejohn WPtel: [address] [place], [place] [phone] Other 08/11/2011 Appointment: Jodie Littlejohn WPtel: [address] [place], [place] [phone] Other 08/11/2011 Patient Education: Patient Medication Summary [...] symptoms return. 2011 Appointment: Jodie Littlejohn WPtel: [address] [place] [address] Other 06/01/2011 Patient Education: Patient Medication Summary [...] of control. 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 Jqivkseew-cdoqcfr-qdwnfrmz daily anti histamine . Hypertension - wel [...] YOUR BLOOD PRESSURE AND YOUR MACHINE . Qtyjvikszcu-rshgjofgg-fvzuj labs-incre ase po fluids-monitor blood pressure and [...] will not be seeing the physician in [place] any more - had actually stopped seeing the physician in [place] as of 2-3 weeks ago. She will be seeing Dr. Cabrera in [place]. zyrtec 10mg daily . Hypertension - well [...] depression-patients sees Dr Valencia-recent inpatient stay at [facility]-now on latuda and doing well-no [...]
--- OUTSIDE RECORDS SUMMARY | 2019-11-07 17:28 | XMS REPORT | CCD ---
Author Author Cesar Littlejohn Organization Jodie Littlejohn MD, [facility] Address [address] [place] [address] Phone Care Team Providers Care Splunk Dashboard Developer Name Role Phone PP Unavailable CCM Unavailable Summary Purpose Interface Exchange Insurance Providers Payer name Policy type / Coverage type Covered libertarian ID Effective Begin Date Effective End Date WPS Medicare Part B Medicare Part B [id number] Unknown [facility] Part B [id number] Un known Family history Grandfather Diagnosis Age [...] Element Codes Description Effective Dates Employment Unknown Retir ed from [employer] 10/06/2017 Number of children Unknown 2 sons - 1 son in an accident in [place]/13/2011 Marital status Unknown M arried 04/06/[address]: 408454757 Never smoker 04/06/[address]: 232961310 Never drinks alcohol 04/06/2011 Has the patient ever used illegal drugs? Unknown Has never used illegal drugs 011 Allergies, Adverse Reactions, Alerts Substance Reaction Codes Entered Date Inactivated Date Status Chocolate hives, Unknown 05/18/2011 No In active Date Active Tape Unknown 05/18/2011 No In active Date Active Benadryl RxNorm: 467122 10/11/2013 No Inactive Date Active IV DYE, IODINE CONTA INING Unknown 04/06/2011 No Inactive Date Active QUINIDINE/QUININE Unknown 04/06/2011 No In active Date Active SULFA (SULFONAMIDES) Unknown 04/06/2011 No Inactive Date Active Past Medical History Illness Codes Condition Status Onset Date Resolved Date Essential (primary) hypertension ICD-9: 401.1 ICD-10: I10 Active 05/23/2017 Unknown Other obesity due to excess calories ICD-9: 278.00 ICD-10: E66.09 Active 12/24/2015 Unknown Bipolar disorder, cu rrent episode depressed, moderate ICD-9: 296.52 ICD-10: F31.32 Active 05/26/2016 Unknown Shortness of breath ICD- 9: 786.05 ICD-10: R06.02 Active 12/22/2017 Unknown Vitamin D deficiency , unspecified ICD-9: 268.9 ICD-10: E55.9 Active 12/22/2017 Unknown Encounter for genera l adult medical examination with abnormal findings ICD-9: V70.0 ICD-10: Z00.01 Active 10/06/2017 Unknown Encounter for immuni zation ICD-9: V03.82 ICD-10: Z23 Active 10/06/2017 Unknown Encounter for screen ing mammogram for malignant neoplasm of breast ICD-9: V76.12 ICD-10: Z12.31 Active 10/06/2017 Unknown Atrophy of thyroid ( acquired) ICD-9: 244.8 ICD-10: E03.4 Active 05/23/2017 Unknown Cough ICD-9: 786.2 ICD-10: R05 Active 05/26/2016 Unknown Gastro-esophageal re flux disease without esophagitis ICD-9: 530.81 ICD-10: K21.9 Active 12/07/2015 Unknown Generalized anxiety disorder ICD-9: 300.00 ICD-10: F41.1 Active 12/07/2015 Unknown Mixed hyperlipidemia ICD-9: 272.4 ICD-10: E78.2 Active 12/24/2015 Unknown 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 ICD-9: V58.69 ICD-10: Z79.899 Active 06/23/2015 Unknown Bipolar disorder, cu rrent episode manic without psychotic features, moderate ICD-9: 296.40 ICD-10: F31.12 Active 04/28/2016 Unknown Bipolar disorder, in partial remission, most recent episode manic ICD-9: 296.45 ICD-10: F31.73 Active 12/30/2016 Unknown Acute upper respirat ory infection, unspecified ICD-9: 465.9 ICD-10: J06.9 Active 05/26/2016 Unknown Dysuria ICD-9: 788.1 ICD-10: R30.0 Active 09/22/2015 Unknown Dizziness and giddiness ICD-9: 780.4 ICD-10: R42 Active 02/07/2017 Unknown Headache ICD-9: 784.0 ICD-10: R51 Active 02/07/2017 Unknown Unspecified visual d isturbance ICD-9: 368.9 ICD-10: H53.9 Active 02/07/2017 Unknown Encounter for immuni zation ICD-9: V04.81 ICD-10: Z23 Active 02/19/2016 Unknown Essential (primary) hypertension ICD-9: 401.9 ICD-10: I10 Active 04/28/2016 Unknown Hypothyroidism, unsp ecified ICD-9: 244.9 ICD-10: E03.9 Active 09/22/2015 Unknown Allergic rhinitis du e to pollen ICD-9: 477.0 ICD-10: J30.1 Active 01/25/2016 Unknown Unspecified fracture of left calcaneus, initial encounter for closed fracture ICD-9: 825.0 ICD-10: S92.002A Active 10/19/2016 Unknown Unsteadiness on feet ICD-9: 781.2 ICD-10: R26.81 Active 10/19/2016 Unknown Acute recurrent maxi llary sinusitis ICD-9: 461.0 ICD-10: J01.01 Active 08/09/2016 Unknown Fever, unspecified ICD- 9: 780.60 ICD-10: R50.9 Active 08/09/2016 Unknown Allergic rhinitis du e to pollen ICD-9: 477.9 ICD-10: J30.1 Active 07/20/2016 Unknown Acute laryngopharyng itis ICD-9: 465.0 ICD-10: J06.0 Active 01/25/2016 Unknown Other seborrheic ker atosis ICD-9: 702.19 ICD-10: L82.1 Active 12/31/2015 Unknown Frequency of micturi tion ICD-9: 788.41 ICD-10: R35.0 Active 12/24/2015 Unknown Major depressive dis order, single episode, unspecified ICD-9: 311 ICD-10: F32.9 Active 06/24/2015 Unknown Rash and other nonsp ecific skin [...] pain ICD-9: 719.47 Active 08/27/2013 Unknown 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 Active 03/20/2013 Unknown IMPAIRED FASTING [...] Condition Codes Effectiv e Dates Condition Status Essential (primary) hypertension ICD-9: 401.1 ICD-10: I10 05/23/2017 Active Other obesity due to excess calories ICD-9: 278.00 ICD-10: E66.09 12/24/2015 Active Bipolar disorder, cu rrent episode depressed, moderate ICD-9: 296.52 ICD-10: F31.32 05/26/2016 Active Shortness of breath ICD- 9: 786.05 ICD-10: R06.02 12/22/2017 Active Vitamin D deficiency , unspecified ICD-9: 268.9 ICD-10: E55.9 12/22/2017 Active Encounter for genera l adult medical examination with abnormal findings ICD-9: V70.0 ICD-10: Z00.01 10/06/2017 Active Encounter for immuni zation ICD-9: V03.82 ICD-10: Z23 10/06/2017 Active Encounter for screen ing mammogram for malignant neoplasm of breast ICD-9: V76.12 ICD-10: Z12.31 10/06/2017 Active Atrophy of thyroid ( acquired) ICD-9: 244.8 ICD-10: E03.4 05/23/2017 Active Cough ICD-9: 786.2 ICD-10: R05 05/26/2016 Active Gastro-esophageal re flux disease without esophagitis ICD-9: 530.81 ICD-10: K21.9 12/07/2015 Active Generalized anxiety disorder ICD-9: 300.00 ICD-10: F41.1 12/07/2015 Active Mixed hyperlipidemia ICD-9: 272.4 ICD-10: E78.2 12/24/2015 Active Other penitentiary (cur rent) drug therapy ICD-9: V58.69 ICD-10: Z79.899 06/23/2015 Active Bipolar disorder, cu rrent episode manic without psychotic features, moderate ICD-9: 296.40 ICD-10: F31.12 04/28/2016 Active Bipolar disorder, in partial remission, most recent episode manic ICD-9: 296.45 ICD-10: F31.73 12/30/2016 Active Acute upper respirat ory infection, unspecified ICD-9: 465.9 ICD-10: J06.9 05/26/2016 Active Dysuria ICD-9: 788.1 ICD-10: R30.0 09/22/2015 Active Dizziness and giddiness ICD-9: 780.4 ICD-10: R42 02/07/2017 Active Headache ICD-9: 784.0 ICD-10: R51 02/07/2017 Active Unspecified visual d isturbance ICD-9: 368.9 ICD-10: H53.9 02/07/2017 Active Encounter for immuni zation ICD-9: V04.81 ICD-10: Z23 02/19/2016 Active Essential (primary) hypertension ICD-9: 401.9 ICD-10: I10 04/28/2016 Active Hypothyroidism, unsp ecified ICD-9: 244.9 ICD-10: E03.9 09/22/2015 Active Allergic rhinitis du e to pollen ICD-9: 477.0 ICD-10: J30.1 01/25/2016 Active Unspecified fracture of left calcaneus, initial encounter for closed fracture ICD-9: 825.0 ICD-10: S92.002A 10/19/2016 Active Unsteadiness on feet ICD-9: 781.2 ICD-10: R26.81 10/19/2016 Active Acute recurrent maxi llary sinusitis ICD-9: 461.0 ICD-10: J01.01 08/09/2016 Active Fever, unspecified ICD- 9: 780.60 ICD-10: R50.9 08/09/2016 Active Allergic rhinitis du e to pollen ICD-9: 477.9 ICD-10: J30.1 07/20/2016 Active Acute laryngopharyng itis ICD-9: 465.0 ICD-10: J06.0 01/25/2016 Active Other seborrheic ker atosis ICD-9: 702.19 ICD-10: L82.1 12/31/2015 Active Frequency of micturi tion ICD-9: 788.41 ICD-10: R35.0 12/24/2015 Active Major depressive dis order, single episode, unspecified ICD-9: 311 ICD-10: F32.9 06/24/2015 Active Rash and other nonsp ecific skin [...] ankle pain ICD-9: 719.47 08/27/2013 Active 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 03/20/2013 Active IMPAIRED FASTING GLU [...] Date Stop Date Sta tus Fill Instructions Vitamin D3 5,000 uni t tablet RxNorm: 227513 Tablet(s) ONE BY MOUT H EVERY DAY 12/22/2017 12/16/2018 Ac tive lorazepam 0.5 mg tablet RxNorm: 098972 1 Tablet(s) PO QHS as needed 12/14/2017 03/13/2018 Active lorazepam 0.5 mg tablet RxNorm: 396484 1 Tablet(s) PO QHS as needed 12/12/2017 03/10/2018 Active levothyroxine 100 mc g tablet RxNorm: 553580 1 Tablet(s) PO daily 12/07/2017 06/04/2018 Active Lipitor 40 mg tablet RxNorm: 231975 TAKE ONE TABLET BY MOUTH EVERY NIGHT AT BEDTIME 11/25/2017 05/23/2018 Active omeprazole 20 mg cap jacquelin,delayed release RxNorm: 294567 TAKE ONE CAPSULE BY M OUTH EVERY DAY 09/19/2017 03/17/2018 Active omeprazole 20 mg cap jacquelin,delayed release RxNorm: 621014 TAKE ONE CAPSULE BY M OUTH EVERY DAY 09/19/2017 09/18/2017 Inactive lorazepam 0.5 mg tablet RxNorm: 682446 1 Tablet(s) PO QHS as needed 09/06/2017 12/03/2017 Inactive lorazepam 0.5 mg tablet RxNorm: 1 Tablet(s) PO QHS 09/06/2017 09/05/2017 Inactive levothyroxine 100 mc g tablet RxNorm: 112529 1 Tablet(s) PO daily 09/02/2017 09/01/2017 Inactive Vitamin D2 50,000 un it capsule RxNorm: 297760 1 Capsule(s) PO QW 09/02/2017 09/01/2017 Inactive levothyroxine 100 mc g tablet RxNorm: 174809 1 Tablet(s) PO daily 09/02/2017 12/29/2017 Inactive Vitamin D2 50,000 un it capsule RxNorm: 380143 1 Capsule(s) PO QW 09/02/2017 11/30/2017 Inactive Lipitor 40 mg tablet RxNorm: 957566 TAKE ONE TABLET BY MOUTH EVERY NIGHT AT BEDTIME 07/18/2017 11/14/2017 Inactive Depakote 125 mg tabl et,delayed release RxNorm: 9508147 2 Tablet(s) PO TID 05/23/2017 No Stop Date Active hydroxyzine HCl 25 m g tablet RxNorm: 203950 1/2 Tablet(s) PO BID 05/23/2017 No Stop Date Active Flonase Allergy Reli ef 50 mcg/actuation nasal spray,suspension RxNorm: 4805383 1 Jolo NASAL BID 05/23/2017 07/21/2017 Inactive Diflucan 150 mg tablet RxNorm: 813812 1 Tablet(s) PO daily 03/28/2017 03/30/2017 Inactive Zithromax Z-Juancarlos 250 mg tablet RxNorm: 902776 1 Tablet(s) PO UD 03/10/2017 03/14/2017 Inactive Synthroid 88 mcg tablet RxNorm: 673659 TAKE ONE TABLET BY MOUTH DAILY 02/01/2017 10/05/2017 In active omeprazole 20 mg cap jacquelin,delayed release RxNorm: 964568 TAKE ONE CAPSULE BY M OUTH EVERY DAY 01/10/2017 07/08/2017 Inactive Augmentin 875 mg-125 mg tablet RxNorm: 112991 1 Tablet(s) PO BID 11/15/2016 11/14/2016 Inactive Augmentin 875 mg-125 mg tablet RxNorm: 767758 1 Tablet(s) PO BID 11/15/2016 11/21/2016 Inactive Keflex 500 mg capsule RxNorm: 722844 1 Capsule(s) PO TID 11/10/2016 11/14/2016 Inactive nystatin 100,000 uni t/mL oral suspension RxNorm: 956105 5 Milliliter(s) PO sw neli and swallow QID 08/17/2016 08/16/2016 Inactive nystatin 100,000 uni t/mL oral suspension RxNorm: 714557 5 Milliliter(s) PO sw neli and swallow QID 08/17/2016 08/26/2016 Inactive Augmentin 875 mg-125 mg tablet RxNorm: 942479 1 Tablet(s) PO BID 08/09/2016 08/15/2016 Inactive Seroquel 100 mg tablet RxNorm: 669887 1/2 Tablet(s) PO QHS 07/20/2016 05/22/2017 Inactive Depakote 125 mg tabl et,delayed release RxNorm: 8044406 2 Capsule(s) PO QAM 1 cap in the evening with meal 07/20/2016 10/17/2016 Inactive levothyroxine 88 mcg tablet RxNorm: 079044 TAKE ONE TABLET BY MO NEH DAILY 06/01/2016 05/22/2017 In active Synthroid 88 mcg tablet RxNorm: 514659 1 Tablet(s) PO daily 05/31/2016 09/27/2016 Inactive Fill generic if insurance will not cover Synthroid 88 mcg tablet RxNorm: 509527 1 Tablet(s) PO daily 05/31/2016 05/30/2016 Inactive Fill generic if insurance will not cover Flonase Allergy Reli ef 50 mcg/actuation nasal spray,suspension RxNorm: 6588607 2 Jolo NASAL daily 05/27/2016 06/09/2016 Inactive Zithromax Z-Juancarlos 250 mg tablet RxNorm: 571445 1 Tablet(s) PO UD 05/27/2016 05/31/2016 Inactive zpack omeprazole 20 mg cap jacquelin,delayed release RxNorm: 663150 TAKE ONE CAPSULE BY M OUTH EVERY DAY 04/12/2016 01/06/2017 Inactive Effexor XR 75 mg cap jacquelin,extended release RxNorm: 525383 1 Capsule(s) PO daily TAKE ONE CAPSULE BY MOUTH DAILY 03/18/2016 12/12/2016 Inactive Effexor XR 37.5 mg c apsule,extended release RxNorm: 273815 TAKE ONE CAPSULE BY M OUTH DAILY 02/23/2016 03/17/2016 Inactive Kenalog 40 mg/mL ericka pension for injection RxNorm: 5628491 Milliliter(s) Inj 01/26/2016 01/26/2016 In active promethazine 6.25 mg -codeine 10 mg/5 mL syrup RxNorm: 739755 5-10 Milliliter(s) PO Q6 PRN 01/26/2016 05/22/2017 Inactive Zithromax Z-Juancarlos 250 mg tablet RxNorm: 895142 1 Tablet(s) PO daily 01/26/2016 01/30/2016 Inactive zpack Effexor XR 37.5 mg c apsule,extended release RxNorm: 762759 1 Capsule(s) PO daily 11/21/2015 11/20/2015 In active Effexor XR 37.5 mg c apsule,extended release RxNorm: 648316 1 Capsule(s) PO daily 11/21/2015 02/18/2016 In active Latuda 20 mg tablet RxNorm: 8428531 1 Tablet(s) PO daily 09/23/2015 04/01/2016 Inactive Pristiq 25 mg tablet ,extended release RxNorm: 0697928 1 Tablet(s) PO QAM 09/23/2015 11/20/2015 In active Cipro 500 mg tablet RxNorm: 624173 1 Tablet(s) PO BID 07/23/2015 07/29/2015 Inactive probiotic bid x7 days Levaquin 500 mg tablet RxNorm: 458185 1 Tablet(s) PO daily 07/07/2015 07/06/2015 Inactive Levaquin 500 mg tablet RxNorm: 026946 1 Tablet(s) PO daily 07/07/2015 07/13/2015 Inactive Depakote 125 mg tabl et,delayed release RxNorm: 5478455 2 Tablet(s) PO QPM 05/14/2015 08/11/2015 In active levothyroxine 88 mcg tablet RxNorm: 279841 1 Tablet(s) PO daily 05/05/2015 05/30/2016 Inactive hydroxyzine HCl 25 m g tablet RxNorm: 021153 1 Tablet(s) PO TID PRN 04/28/2015 05/22/2017 Inactive PRN ITCHING escitalopram 20 mg t ablet RxNorm: 672351 1 Tablet(s) PO daily 03/18/2015 03/18/2015 Inactive [SAVINGS FOR UNINSURED PATIENTS -- BIN:0 75301, PCN: ASPROD1, Group: [id number], ID# [id number], Process claim through CarePayment, for questions: . THIS IS NOT INSURANCE.] omeprazole 20 mg cap jacquelin,delayed release RxNorm: 392293 TAKE ONE CAPSULE BY M OUTH EVERY DAY 03/11/2015 01/04/2016 Inactive Diflucan 150 mg tablet RxNorm: 815419 1 Tablet(s) PO daily 11/18/2014 11/27/2014 Inactive Biofreeze (menthol) 4 % topical gel RxNorm: 0663526 1 Application TOP BI D 11/18/2014 11/27/2014 In active tetanus and diphther ia tox (PF) 5 Lf unit-2 Lf unit/0.5 mL IM susp RxNorm: 172250 1 injection IM 10/23/2014 10/23/2014 Inactive Augmentin 875 mg-125 mg tablet RxNorm: 120993 1 Tablet(s) PO BID 10/23/2014 11/01/2014 Inactive Kenalog 40 mg/mL ericka pension for injection RxNorm: 0981013 Milliliter(s) Inj 07/08/2014 07/08/2014 In active Zithromax Z-Juancarlos 250 mg tablet RxNorm: 202022 1 Tablet(s) PO daily 07/08/2014 07/12/2014 Inactive zpack escitalopram 20 mg t ablet RxNorm: 715392 1 Tablet(s) PO daily 07/01/2014 01/26/2015 Inactive [SAVINGS FOR UNINSURED PATIENTS -- BIN:0 72148, PCN: ASPROD1, Group: [id number], ID# [id number], Process claim through CarePayment, for questions: . THIS IS NOT INSURANCE.] escitalopram 20 mg t ablet RxNorm: 496351 TAKE ONE TABLET BY [facility] ONCE A DAY 07/01/2014 12/27/2014 In active Cipro 500 mg tablet RxNorm: 327916 1 Tablet(s) PO BID 06/07/2014 06/13/2014 Inactive probiotic bid x7 days [SAVINGS FOR UNINSURED PATIENTS -- BIN:824056, PCN: ASPROD1, Group: [id number], ID# [id number], Process claim through CarePayment, for questions: . THIS IS NOT INSURANCE.] Cipro 500 mg tablet RxNorm: 779192 1 Tablet(s) PO BID 06/07/2014 06/06/2014 Inactive probiotic bid x7 days Diflucan 150 mg tablet RxNorm: 780262 1 Tablet(s) PO daily 05/31/2014 05/30/2014 Inactive Diflucan 150 mg tablet RxNorm: 709164 1 Tablet(s) PO daily 05/31/2014 06/04/2014 Inactive [SAVINGS FOR UNINSURED PATIENTS -- BIN:0 58252, PCN: ASPROD1, Group: [id number], ID# [id number], Process claim through CarePayment, for questions: . THIS IS NOT INSURANCE.] Synthroid 75 mcg tablet RxNorm: 857217 Tablet(s) PO TAKE ONE TABLET BY MOUTH 04/25/2014 05/30/2014 Inactive PLEASE DO NOT SUBSTITUTE levothyroxine 88 mcg tablet RxNorm: 598207 1 Tablet(s) PO daily TAKE ONE TABLET BY MOUTH EVERY DAY 04/24/2014 04/24/2014 Inactive ketorolac 60 mg/2 mL intramuscular solution RxNorm: 129873 Milliliter(s) IM 04/18/2014 04/18/2014 In active nystatin-triamcinolo ne 100,000 unit/g-0.1 % topical cream RxNorm: 4769579 APPLY TOPICALLY TWICE A DAY 04/14/2014 05/11/2014 Inactive nystatin-triamcinolo ne 100,000 unit/g-0.1 % topical cream RxNorm: 2185918 APPLY TOPICALLY TWICE A DAY 04/14/2014 05/11/2014 Inactive Vitamin D3 5,000 uni t tablet RxNorm: 543803 ONE BY MOUTH EVERY DAY 04/08/2014 04/02/2015 Inactive lorazepam 0.5 mg tablet RxNorm: 697626 1 Tablet(s) PO QHS 03/05/2014 12/11/2017 Inactive one q 8 hr prn, may take an extra dose at bedtime if nec omeprazole 20 mg cap jacquelin,delayed release RxNorm: 403586 TAKE ONE CAPSULE BY M OUTH EVERY DAY 03/04/2014 01/27/2015 Inactive spironolactone 25 mg tablet RxNorm: 061423 1 Tablet(s) PO TIW 10/23/2013 2016 Inactive Zyprexa 5 mg tablet RxNorm: 972345 1/2 Tablet(s) PO QHS 10/23/2013 03/04/2014 Inactive escitalopram 20 mg t ablet RxNorm: 255190 1 Tablet(s) PO daily 10/23/2013 05/20/2014 Inactive Depakote 125 mg tabl et,delayed release RxNorm: 7932239 2 Tablet(s) PO QPM 10/23/2013 04/20/2014 In active Diflucan 150 mg tablet RxNorm: 068452 1 Tablet(s) PO daily 10/11/2013 10/17/2013 Inactive nystatin-triamcinolo ne 100,000 unit/g-0.1 % topical cream RxNorm: 3941483 1 Application TOP BID 10/11/2013 10/24/2013 Inactive spironolactone 25 mg tablet RxNorm: 1 Tablet(s) PO daily 09/17/2013 10/22/2013 Inactive Depakote 125 mg tabl et,delayed release RxNorm: 7781802 2 Tablet(s) PO TID 08/20/2013 10/22/[address] valencia increased escitalopram 20 mg t ablet RxNorm: 024494 1 Tablet(s) PO daily 07/10/2013 10/22/2013 Inactive Synthroid 75 mcg tablet RxNorm: 786732 Tablet(s) PO TAKE ONE TABLET BY MOUTH 04/17/2013 04/23/2014 Inactive Vitamin D3 5,000 uni t tablet RxNorm: 910555 1 Tablet(s) PO daily 03/28/2013 04/07/2014 Inactive Kenalog 40 mg/mL ericka pension for injection RxNorm: 2401360 Milliliter(s) Inj 03/20/2013 03/20/2013 In active omeprazole 20 mg cap jacquelin,delayed release RxNorm: 564358 Capsule(s) PO TAKE ON E CAPSULE BY MOUTH EVERY DAY 01/30/2013 08/19/2013 Inactive lorazepam 0.5 mg tablet RxNorm: 050185 1 Tablet(s) PO BID 01/22/2013 03/04/2014 Inactive one q 8 hr prn, may take an extra dose at bedtime if nec risperidone 0.5 mg t ablet RxNorm: 028858 1 Tablet(s) PO QHS 01/22/2013 08/19/2013 Inactive Silvadene 1 % Topica l Cream RxNorm: 004160 Cream TOP APPLY ON SK IN NEEDED 10/27/2012 01/21/2013 In active Cipro 500 mg tablet RxNorm: 372272 1 Tablet(s) PO BID 09/04/2012 09/03/2012 Inactive Cipro 500 mg tablet RxNorm: 848036 1 Tablet(s) PO BID 09/04/2012 09/10/2012 Inactive Rocephin 500 mg Solu tion for Injection RxNorm: 665360 1 Inj 08/22/2012 08/22/2012 Inactive Kenalog 40 mg/mL Ericka p for Injection RxNorm: 3607641 1 Milliliter(s) Inj 08/22/2012 08/22/2012 In active Rocephin 500 mg Solu tion for Injection RxNorm: 002780 1.5 Milliliter(s) Inj 05/22/2012 01/22/2013 In active Kenalog 40 mg/mL Ericka p for Injection RxNorm: 9343578 1 Milliliter(s) Inj 05/22/2012 05/22/2012 In active Synthroid 75 mcg tablet RxNorm: 174365 Tablet(s) PO 04/10/2012 04/16/2013 Inactive TAKE ONE TABLET BY MOUTH EVERY DAY name brand only Synthroid 75 mcg tablet RxNorm: 350225 Tablet(s) PO 04/09/2012 04/09/2012 Inactive TAKE ONE TABLET BY MOUTH EVERY DAY Vitamin D3 5,000 uni t tablet RxNorm: 340765 1 Tablet(s) PO daily 02/14/2012 03/09/2013 Inactive Vitamin D3 5,000 uni t tablet RxNorm: 151271 1 Tablet(s) PO daily 02/14/2012 02/13/2012 Inactive omeprazole 20 mg cap jacquelin,delayed release RxNorm: 231192 1 Capsule(s) PO daily 01/24/2012 01/29/2013 In active Vitamin D2 50,000 un it capsule RxNorm: 506229 1 Capsule(s) PO QW on e weekly x 3 months 12/07/2011 02/13/2012 Inactive one weekly x 3 months then 5000 units da natalie thereafter Synthroid 75 mcg tablet RxNorm: 752179 1 Tablet(s) PO daily 09/28/2011 03/25/2012 Inactive TAKE ONE TABLET BY MOUTH EVERY DAY ON AN EMPTY STOMACH omeprazole 20 mg cap jacquelin,delayed release RxNorm: 074317 1 Capsule(s) PO daily 07/20/2011 01/15/2012 In active Synthroid 75 mcg Tab RxNorm: 441199 Tablet(s) PO 2011 09/27/2011 Inactive TAKE ONE TABLET BY MOUTH EVERY DAY ON AN EMPTY STOMACH lorazepam 0.5 mg tablet RxNorm: 364245 1 Tablet(s) PO QDAY PRN 07/13/2011 01/21/2013 Inactive one q 8 hr prn, may take an extra dose a t bedtime if nec Synthroid 75 mcg Tab RxNorm: 995089 1 Tablet(s) PO daily 06/21/2011 07/18/2011 Inactive Silvadene 1 % Topica l Cream RxNorm: 065861 1 Application TOP PRN 06/01/2011 10/26/2012 Inactive dispense a small tube Depakote 125 mg tabl et,delayed release RxNorm: 7699958 3 Tablet(s) PO daily 06/01/2011 08/19/2013 In active lorazepam 0.5 mg Tab RxNorm: 382782 1 Tablet(s) PO PRN 06/01/2011 07/12/2011 Inactive one q 8 hr prn, may take an extra dose at bedtime if nec lorazepam 0.5 mg Tab RxNorm: 726460 Tablet(s) PO 04/20/2011 05/31/2011 Inactive one q 8 hr prn, may take an extra dose at bedtime if nec Alphagan P 0.1 % eye drops RxNorm: 288812 1 Drop(s) ophthalmic (eye) to left eye BID No Start Date Active melatonin 3 mg tablet RxNorm: 882172 1 Tablet(s) PO QHS No Start Date Active lactulose 20 gram/30 mL oral solution RxNorm: 053088 30 Milliliter(s) PO B ID No Start Date Active aspirin 81 mg Cap, D elayed Release RxNorm: 355952 1 Capsule(s) PO daily No Start Date Active omeprazole 20 mg cap jacquelin,delayed release RxNorm: 372464 1 Capsule(s) PO QHS No Start Date Active Lumigan 0.01 % Eye D rops RxNorm: 0548078 Drop(s) OPH No Start Date Active olanzapine 5 mg tablet RxNorm: 919462 1 Tablet(s) PO QAM No Start Date Active olanzapine 10 mg tablet RxNorm: 714295 1 Tablet(s) PO QPM No Start Date Active Lexapro 10 mg Tab RxNorm: 652663 1/2 Tablet(s) PO daily No Start Date 05/31/2011 Inactive pantoprazole 40 mg t ablet,delayed release RxNorm: 001331 1 Tablet(s) PO daily No Start Date 05/30/2014 Inactive Seroquel 100 mg tablet RxNorm: 480931 1 Tablet(s) PO QHS No Start Date 2016 Inactive Influenza Virus Vacc ine 0.5 mL RxNorm: IM No Start Nathan e 03/10/2017 Inactive Latuda 40 mg tablet RxNorm: 1237867 1 Tablet(s) PO daily No Start Date 09/22/2015 Inactive trifluoperazine 5 mg Tab RxNorm: 336948 1 Tablet(s) PO daily No Start Date 05/17/2011 Inactive Zithromax Z-Juancarlos 250 mg tablet RxNorm: 712348 Tablet(s) PO UD No Start Date 01/21/2013 Inactive trifluoperazine 5 mg Tab RxNorm: 767333 1 Tablet(s) PO QHS [place] No Start Date 08/13/2012 Inactive timolol 0.5 % Eye Drops RxNorm: 590111 1 Drop(s) OPH daily No Start Date 05/31/2011 Inactive each eye Lasix 20 mg Tab RxNorm: 507198 1/2 Tablet(s) PO QDAY PRN No Start Date 05/31/2011 Inactive lorazepam 0.5 mg Tab RxNorm: 886968 Tablet(s) PO No Start Date 04/19/2011 Inactive one q 8 hr prn, may take an extra dose at bedtime if nec Lexapro 5 mg tablet RxNorm: 743038 1 Tablet(s) PO daily No Start Date 07/09/2013 Inactive risperidone 0.5 mg t ablet RxNorm: 460596 1 Tablet(s) PO QHS No Start Date 01/21/2013 Inactive hydroxyzine HCl 25 m g tablet RxNorm: 966554 1 Tablet(s) PO BID No Start Date 05/22/2017 Inactive Lexapro 10 mg Tab RxNorm: 042903 1 Tablet(s) PO daily No Start Date 05/17/2011 Inactive Pristiq 50 mg tablet ,extended release RxNorm: 528551 1/2 Tablet(s) PO QAM No Start Date 09/22/2015 Inactive Ditropan XL 5 mg 24 hr Tab RxNorm: 320262 1 Tablet(s) PO daily No Start Date 01/28/2014 Inactive Vesicare 5 mg tablet RxNorm: 419971 1 Tablet(s) PO daily No Start Date 01/28/2014 Inactive oxcarbazepine 150 mg Tab RxNorm: 266398 1 Tablet(s) PO QHS No Start Date 08/10/2011 Inactive levothyroxine 88 mcg tablet RxNorm: 761403 oral No S tart Date 05/04/2015 Inactive Depakote 125 mg Tab RxNorm: 4015988 1 Tablet(s) PO daily No Start Date 05/31/2011 Inactive Zyprexa 5 mg tablet RxNorm: 634368 1 q am 2 at hs Tablet(s) PO No Start Date 10/22/2013 Inactive Lipitor 40 mg tablet RxNorm: 190851 1 Tablet(s) PO daily No Start Date 07/17/2017 Inactive Calcium 500 + D (D3) 500 mg-125 unit Tab RxNorm: 877368 1 Tablet(s) PO BID No Start Date 05/31/2011 Inactive KCL 10 meq RxNorm: 1 PO daily No Start Date 05/31/2011 Inactive Stelazine 1 mg tablet RxNorm: 513567 1 Tablet(s) PO QAM No Start Date 02/12/2015 Inactive Mary 180 mg Tab RxNorm: 888383 1 Tablet(s) PO daily No Start Date 05/31/2011 Inactive Centrum Silver Ultra Women's Tab RxNorm: 1 Tablet(s) PO BID No Start Date 01/21/2013 Inactive Vagifem 10 mcg Vagin al Tab RxNorm: 702656 Tablet(s) VAG No Start Date 01/21/2013 Inactive 2-3x per week per dr kumar omeprazole 20 mg Cap , Delayed Release RxNorm: 385369 1 Capsule(s) PO daily No Start Date 2011 Inactive Vitamin D2 50,000 un it capsule RxNorm: 539404 1 Capsule(s) PO QW on e weekly x 3 months No Start Date 12/06/2011 Inactive one weekly x 3 months Remeron 15 mg tablet RxNorm: 925139 1 Tablet(s) PO QHS No Start Date 05/22/2017 Inactive levothyroxine 75 mcg Cap RxNorm: 271658 1 Capsule(s) PO daily No Start Date 01/21/2013 Inactive Medication Administered Medication Codes Instruc tions Start Date Status Kenalog 40 mg/mL suspension for injection RxNorm: 0652473 Milliliter 01/26/2016 No longer Active tetanus and diphtheria tox (PF) 5 Lf uni t-2 Lf unit/0.5 mL IM susp RxNorm: 838677 1injection 10/23/2014 No longer Active Kenalog 40 mg/mL suspension for injection RxNorm: 1741220 Milliliter 07/08/2014 No longer Active ketorolac 60 mg/2 mL intramuscular solution RxNorm: 318170 Milliliter 04/18/2014 No longer Active Kenalog 40 mg/mL suspension for injection RxNorm: 6902180 Milliliter 03/20/2013 No longer Active Rocephin 500 mg Solution for Injection RxNorm: 422780 1 08/22/2012 No longer A ctive Kenalog 40 mg/mL Susp for Injection RxNorm: 0999349 1Milliliter 08/22/2012 N o longer Active Kenalog 40 mg/mL Susp for Injection RxNorm: 4098355 1Milliliter 05/22/2012 N o longer Active Immunizations Vaccine Codes Date Status Pneumococcal (Adult) CVX: 133 10/06/2017 completed Influenza CVX: 141 02/02 completed Influenza CVX: 141 02/19 completed Influenza CVX: 141 02/13 completed Tetanus, Diptheria, Pertussis CVX: 113 10/23/2014 completed Tetanus/Diptheria CVX: 113 10/23/2014 completed PPD Unknown 09/25/2014 completed Influenza CVX: 141 01/29 completed Pneumococcal CVX: 33 completed Influenza CVX: 141 03/30 completed Influenza CVX: 141 03/07 completed Influenza CVX: 141 02/22 completed Influenza CVX: 141 02/11 completed Assessments Condition Codes Effectiv e Dates Other obesity [...] hyperlipidemia ICD-10: E78.2 ICD-9: 272.4 08/25/2017 Other penitentiary (current) drug therapy ICD-10: Z79.899 ICD-9: V58.69 [...] IMPAIRED FASTING GLUCOSE ICD-9: 790.21 03/20/2013 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 03/20/2013 ALLERGIC RHINITIS ICD-9: 477.9 03/20/2013 HYPERLIPIDEMIA ICD-9: 272.4 08/14/2012 VACCIN FOR INFLUENZA ICD-9: V04.81 02/23/2012 Vitamin D deficiency ICD-9: 268.9 12/01/2011 Osteoarthrosis, 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 08/11/2011 MASTODYNIA ICD-9: 611.71 06/01/2011 ABRASION HAND ICD-9: 914.0 06/01/2011 Flatulence ICD-9: 787.3 06/01/2011 Reason For Visit Reason For Visit Effective Dates Notes dyspnea 12/22/2017 Annual Medicare Wellness Exam 10/06/2017 disturbances of thinking 08/25/2017 disturbances of thinking 05/23/2017 cough 03/10/2017 headache 02/07/2017 vaccination against influenza 02/02/2017 heel pain 12/30/2016 imp roving nasal allergies 10/19/2016 sore throat 08/09/2016 nasal [...] Melvin - Pt saw her psychiatrist 04/19/11 breast complaint 05/18/2011 Pt states she had a very difficult Melvin - Pt saw her psychiatrist 04/19/11 Results Observation Observation Code Item Item Code Result Date Vitamin D 25 Oh [id number] VITAMIN D, 25 HYDROXY 30.92 ng/mL 08/29/2017 Lipid Ord30 CHOL 146 mg/dL 08/29/2017 Lipid Ord30 HDL 50.0 mg/dl 08/29/2017 Lipid Ord30 TRIG 66 mg/dL 08/29/2017 Lipid Ord30 LDL 83 mg/dL 08/29/2017 Lipid Ord30 C/HDL 2.9 Ratio 08/29/2017 Comp Metabolic Ukm950 NA 138 mEq/L 08/29/2017 Comp Metabolic Aws352 K 4.4 mEq/L 08/29/2017 Comp Metabolic Pwb881 CL 100 mEq/L 08/29/2017 Comp Metabolic Bfr383 CO2 28.0 mEq/L 08/29/2017 Comp Metabolic Kio891 AN ION GAP 14 08/29/2017 Comp Metabolic Eys770 GL UCOSE 96 mg/dL 08/29/2017 Comp Metabolic Cam784 Cr eat 0.7 mg/dL 08/29/2017 Comp Metabolic Hxb224 eG FR 84 ml/min/1.73m2 08/29 Comp Metabolic Iwb803 BUN 11 mg/dL 08/29/2017 Comp Metabolic Jzv143 B/ C Ratio 15.5 Ratio 08/29/2017 Comp Metabolic Lip940 CA LCIUM 9.0 mg/dL 08/29/2017 Comp Metabolic Ggm558 AL K PHOS 86 U/L 08/29/2017 Comp Metabolic Zzm666 T(SGOT) 15 U/L 08/29/2017 Comp Metabolic Hit581 AL T(SGPT) 10 U/L 08/29/2017 Comp Metabolic Xsj558 BI LI T 0.4 mg/dL 08/29/2017 Comp Metabolic Oqx954 AL BUMIN 3.7 g/dL 08/29/2017 Comp Metabolic Tby774 TP RO 6.3 g/dL 08/29/2017 Comp Metabolic Ycq905 GL OB 2.6 g/dL 08/29/2017 Comp Metabolic Fir456 A/ G Ratio 1.5 Ratio 08/29/2017 Comp Metabolic Rne429 Os mo 275 mOsmo 08/29/2017 Free T4 Oyg053 FREE T4 0.84 ng/dL 08/29/2017 Tsh Ord6 TSH (3rd IS) 5.72 uIU/mL 08/29/2017 Valproic Acid Eds993 BHARATH PROIC 55.0 ug/ml 08/29/2017 %Hba1C Ggr360 % HbA1c 88367-2 5.8 % 08/29/2017 %Hba1C Hgc997 Gluc Ave 120 mg/dL 08/29/2017 Cbc With Differential Ord2 WBC 11.80 K/ul 08/29/2017 Cbc With Differential Ord2 RBC 5.09 M/ul 08/29/2017 Cbc With Differential Ord2 HGB 13.8 g/dl 08/29/2017 Cbc With Differential Ord2 Neut% 65.3 % 08/29/2017 Cbc With Differential Ord2 HCT 42.6 % 08/29/2017 Cbc With Differential Ord2 Lymph% 20.3 % 08/29/2017 Cbc With Differential Ord2 MCV 83.7 fl 08/29/2017 Cbc With Differential Ord2 [place]% 10.3 % 08/29/2017 Cbc With Differential Ord2 MCH 27.1 pg 08/29/2017 Cbc With Differential Ord2 MCHC 32.4 pg 08/29/2017 Cbc With Differential Ord2 Eos% 3.7 % 08/29/2017 Cbc With Differential Ord2 Baso% 0.4 % 08/29/2017 Cbc With Differential Ord2 PLT 329 K/ul 08/29/2017 Cbc With Differential Ord2 RDW 16.7 % 08/29/2017 Cbc With Differential Ord2 Neut ABS# 7.70 K/ul 08/29/2017 Cbc With Differential Ord2 Lymph ABS# 2.39 K/ul 08/29/2017 Cbc With Differential Ord2 [place] ABS# 1.2 K/ul 08/29/2017 Cbc With Differential Ord2 Eos ABS# 0.4 K/ul 08/29/2017 Cbc With Differential Ord2 Baso ABS# 0.1 K/ul 08/29/2017 Urine Culture Ucult Prel iminary NO Growth Day 1 03/12 Urine Culture Ucult Comp lete NO Growth Day 2 03/12 Cbc With Differential Ord2 WBC 9.16 K/ul 12/30/2016 Cbc With Differential Ord2 RBC 5.13 M/ul 12/30/2016 Cbc With Differential Ord2 HGB 14.0 g/dl 12/30/2016 Cbc With Differential Ord2 Neut% 50.1 % 12/30/2016 Cbc With Differential Ord2 HCT 42.9 % 12/30/2016 Cbc With Differential Ord2 MCV 83.6 fl 12/30/2016 Cbc With Differential Ord2 Lymph% 36.2 % 12/30/2016 Cbc With Differential Ord2 MCH 27.3 pg 12/30/2016 Cbc With Differential Ord2 [place]% 10.4 % 12/30/2016 Cbc With Differential Ord2 MCHC 32.6 pg 12/30/2016 Cbc With Differential Ord2 Eos% 3.1 % 12/30/2016 Cbc With Differential Ord2 PLT 333 K/ul 12/30/2016 Cbc With Differential Ord2 Baso% 0.2 % 12/30/2016 Cbc With Differential Ord2 RDW 16.1 % 12/30/2016 Cbc With Differential Ord2 Neut ABS# 4.59 K/ul 12/30/2016 Cbc With Differential Ord2 Lymph ABS# 3.32 K/ul 12/30/2016 Cbc With Differential Ord2 [place] ABS# 1.0 K/ul 12/30/2016 Cbc With Differential Ord2 Eos ABS# 0.3 K/ul 12/30/2016 Cbc With Differential Ord2 Baso ABS# 0.0 K/ul 12/30/2016 Tsh Ord6 hTSH II 3.57 uIU/mL 12/30/2016 Comp Metabolic Bxz669 NA 139 mEq/L 12/30/2016 Comp Metabolic Err002 K 4.1 mEq/L 12/30/2016 Comp Metabolic Ucl153 CL 103 mEq/L 12/30/2016 Comp Metabolic Des645 CO2 26.0 mEq/L 12/30/2016 Comp Metabolic Rsx067 AN ION GAP 14 12/30/2016 Comp Metabolic Yjo006 GL UCOSE 78 mg/dL 12/30/2016 Comp Metabolic Kto396 Cr eat 0.7 mg/dL 12/30/2016 Comp Metabolic Ciq098 eG FR 84 ml/min/1.73m2 12/30 Comp Metabolic Jcu459 BUN 10 mg/dL 12/30/2016 Comp Metabolic Mvd796 B/ C Ratio 14.1 Ratio 12/30/2016 Comp Metabolic Lgj511 CA LCIUM 9.0 mg/dL 12/30/2016 Comp Metabolic Dxk121 AL K PHOS 109 U/L 12/30/2016 Comp Metabolic Qzz325 T(SGOT) 14 U/L 12/30/2016 Comp Metabolic Rqn651 AL T(SGPT) 8 U/L 12/30/2016 Comp Metabolic Noo912 BI LI T 0.3 mg/dL 12/30/2016 Comp Metabolic Yxd568 AL BUMIN 3.5 g/dL 12/30/2016 Comp Metabolic Gcl573 TP RO 6.4 g/dL 12/30/2016 Comp Metabolic Dsg890 GL OB 2.9 g/dL 12/30/2016 Comp Metabolic Qse006 A/ G Ratio 1.2 Ratio 12/30/2016 Comp Metabolic Aus280 Os mo 275 mOsmo 12/30/2016 Valproic Acid Eso400 BHARATH PROIC 31.0 ug/ml 12/30/2016 Free T4 Brq734 FREE T4 1.05 ng/dL 12/30/2016 Culture Urine [id number] URI NE CULTURE SEE NOTES 11/15/2016 Culture Urine [id number] Con tinued Results 11/15/2016 Urine Culture Ucult Comp lete Growth of aerobe sent to ref lab 11/11/2016 Urine Culture Ucult Prel iminary NO Growth Day 1 09/11 Urine Culture Ucult Comp lete NO Growth Day 2 09/11 C A/B FLU [id number] Influe nza A Scr Negative 08/09/2016 C A/B FLU 4129115 Influe nza B Scr Negative 08/09/2016 C RAP A SC 8351780 Strep A Negative 01/26/2016 Lipid Ord30 CHOL 189 mg/dL 01/01/2016 Lipid Ord30 HDL 46.0 mg/dl 01/01/2016 Lipid Ord30 TRIG 111 mg/dL 01/01/2016 Lipid Ord30 LDL 121 mg/dL 01/01/2016 Lipid Ord30 C/HDL 4.1 Ratio 01/01/2016 Urine Culture Ucult Prel iminary NO Growth Day 1 12/26 Urine Culture Ucult Comp lete NO Growth Day 2 12/26 Valproic Acid Jvj027 BHARATH PROIC 30.0 ug/ml 09/23/2015 Cbc With [...] 27.9 pg 09/23/2015 Cbc With Differential Ord2 [place]% 9.7 % 09/23/2015 Cbc With Differential Ord2 [...] 2.92 K/ul 09/23/2015 Cbc With Differential Ord2 [place] ABS# 0.8 K/ul 09/23/2015 Cbc With Differential Ord2 Eos ABS# 0.2 K/ul 09/23/2015 Cbc With Differential Ord2 Baso ABS# 0.0 K/ul 09/23/2015 Cbc With Differential Ord2 New Analyzer Notice Please note new ref ranges s tarting 05-28-2015 due to implemntation of new five part differential hematolgy analyzer. 09/23/2015 Comp Metabolic Vto286 NA 138 mEq/L 09/23/2015 Comp Metabolic Eay542 K 4.0 mEq/L 09/23/2015 Comp Metabolic Kkt140 CL 105 mEq/L 09/23/2015 Comp Metabolic Mqy908 CO2 26.0 mEq/L 09/23/2015 Comp Metabolic Yzl916 AN ION GAP 11 09/23/2015 Comp Metabolic Bua941 GL UCOSE 87 mg/dL 09/23/2015 Comp Metabolic Bgt706 Cr eat 0.6 mg/dL 09/23/2015 Comp Metabolic Mnb003 eG FR 95 ml/min/1.73m2 09/22 Comp Metabolic Obv393 BUN 10 mg/dL 09/23/2015 Comp Metabolic Wvu756 B/ C Ratio 15.6 Ratio 09/23/2015 Comp Metabolic Oko909 CA LCIUM 8.6 mg/dL 09/23/2015 Comp Metabolic Lrl603 AL K PHOS 104 U/L 09/23/2015 Comp Metabolic Dyl418 T(SGOT) 17 U/L 09/23/2015 Comp Metabolic Fhz617 AL T(SGPT) 14 U/L 09/23/2015 Comp Metabolic Pjb856 BI LI T 0.3 mg/dL 09/23/2015 Comp Metabolic Oah208 AL BUMIN 3.8 g/dL 09/23/2015 Comp Metabolic Nvr233 TP RO 6.3 g/dL 09/23/2015 Comp Metabolic Ksd911 GL OB 2.5 g/dL 09/23/2015 Comp Metabolic Csb890 A/ G Ratio 1.5 Ratio 09/23/2015 Comp Metabolic Die946 Os mo 274 mOsmo 09/23/2015 Free T4 Txq507 FREE T4 1.05 ng/dL 09/23/2015 Tsh Ord6 hTSH II 1.84 uIU/mL 09/23/2015 Culture Urine [id number] URI NE CULTURE SEE NOTES 07/10/2015 Culture Urine [id number] Con tinued Results 07/10/2015 Urine Culture Ucult Comp lete >100,000 col/ml aerobic grow th sent to ref lab 07/08/2015 Comp Metabolic Oxh121 NA 140 mEq/L 06/24/2015 Comp Metabolic Fiu099 K 4.3 mEq/L 06/24/2015 Comp Metabolic Fck699 CL 103 mEq/L 06/24/2015 Comp Metabolic Srf726 CO2 32.0 mEq/L 06/24/2015 Comp Metabolic Zda568 AN ION GAP 9 06/24/2015 Comp Metabolic Kzr225 GL UCOSE 87 mg/dL 06/24/2015 Comp Metabolic Ecw233 Cr eat 0.8 mg/dL 06/24/2015 Comp Metabolic Rao640 eG FR 76 ml/min/1.73m2 06/24 Comp Metabolic Fma517 BUN 10 mg/dL 06/24/2015 Comp Metabolic Sfu025 B/ C Ratio 12.8 Ratio 06/24/2015 Comp Metabolic Rre054 CA LCIUM 9.0 mg/dL 06/24/2015 Comp Metabolic Hqw961 AL K PHOS 93 U/L 06/24/2015 Comp Metabolic Vwu493 T(SGOT) 16 U/L 06/24/2015 Comp Metabolic Twe822 AL T(SGPT) 10 U/L 06/24/2015 Comp Metabolic Mnu856 BI LI T 0.4 mg/dL 06/24/2015 Comp Metabolic Xsj803 AL BUMIN 3.8 g/dL 06/24/2015 Comp Metabolic Izg987 TP RO 6.2 g/dL 06/24/2015 Comp Metabolic Jct625 GL OB 2.4 g/dL 06/24/2015 Comp Metabolic Nfm949 A/ G Ratio 1.5 Ratio 06/24/2015 Comp Metabolic Kub719 Os mo 278 mOsmo 06/24/2015 Cbc With [...] 87.3 fl 06/24/2015 Cbc With Differential Ord2 [place]% 10.0 % 06/24/2015 Cbc With Differential Ord2 [...] 3.51 K/ul 06/24/2015 Cbc With Differential Ord2 [place] ABS# 0.8 K/ul 06/24/2015 Cbc With Differential Ord2 Eos ABS# 0.4 K/ul 06/24/2015 Cbc With Differential Ord2 Baso ABS# 0.1 K/ul 06/24/2015 Cbc With Differential Ord2 New Analyzer Notice Please note new ref ranges s tarting 05-28-2015 due to implemntation of new five part differential hematolgy analyzer. 06/24/2015 Free T4 Bxh872 FREE T4 0.98 ng/dL 06/24/2015 Tsh Ord6 hTSH II 3.48 uIU/mL 06/24/2015 Lipid Ord30 CHOL 158 mg/dL 06/24/2015 Lipid Ord30 HDL 45.0 mg/dl 06/24/2015 Lipid Ord30 TRIG 129 mg/dL 06/24/2015 Lipid Ord30 LDL 87 mg/dL 06/24/2015 Lipid Ord30 C/HDL 3.5 Ratio 06/24/2015 Valproic Acid Ftp161 BHARATH PROIC 42.0 ug/ml 06/24/2015 TSH 0866995 TSH 1.199 uIU/ML 08/20/2013 FREE T4 3321574 FREE T4 1.06 NG/DL 08/20/2013 URINALYSIS NONAUTO W/O SCOPE 33986 Specific [place] 1.010 DateTime(Free Text in Aprima) URINALYSIS NONAUTO W/O SCOPE 02250 PH 6.0 DateTime(Free Jayy t in Aprima) URINALYSIS NONAUTO W/O SCOPE 85571 GLUCOSE neg DateTime(Free Jayy t in Aprima) URINALYSIS NONAUTO W/O SCOPE 82619 Protein neg DateTime(Free Jayy t in Aprima) URINALYSIS NONAUTO W/O SCOPE 95675 Blood 1+ DateTime(Free Text in Aprima) URINALYSIS NONAUTO W/O SCOPE 04436 Bilirubin neg DateTime(Free Jayy t in Aprima) URINALYSIS NONAUTO W/O SCOPE 79510 Ketones neg DateTime(Free Jayy t in Aprima) URINALYSIS NONAUTO W/O SCOPE 55684 Urobilinogen neg DateTime(Free Text in Aprima) URINALYSIS NONAUTO W/O SCOPE 68948 Nitrite neg DateTime(Free Jayy t in Aprima) URINALYSIS NONAUTO W/O SCOPE 97553 Leukocytes 1+ DateTime(Free Text in Aprima) URINALYSIS NONAUTO W/O SCOPE 34652 Specific [place] 1.005 DateTime(Free Text in Aprima) URINALYSIS NONAUTO W/O SCOPE 94126 PH 7 DateTime(Free Text in Aprima) URINALYSIS NONAUTO W/O SCOPE 93876 GLUCOSE neg DateTime(Free Jayy t in Aprima) URINALYSIS NONAUTO W/O SCOPE 75716 Protein neg DateTime(Free Jayy t in Aprima) URINALYSIS NONAUTO W/O SCOPE 51787 Blood trace DateTime(Free T ext in Aprima) URINALYSIS NONAUTO W/O SCOPE 31405 Bilirubin neg DateTime(Free Jayy t in Aprima) URINALYSIS NONAUTO W/O SCOPE 71141 Ketones neg DateTime(Free Jayy t in Aprima) URINALYSIS NONAUTO W/O SCOPE 85661 Urobilinogen neg DateTime(Free Text in Aprima) URINALYSIS NONAUTO W/O SCOPE 73246 Nitrite neg DateTime(Free Jayy t in Aprima) URINALYSIS NONAUTO W/O SCOPE 42299 Leukocytes neg DateTime(Free Text in Aprima) UA 99856 Specific [place] 1.005 DateTime(Free Text in Aprima ) UA 00507 PH 6 DateTime(Free Text in Aprima ) UA 21095 GLUCOSE neg DateTime(Free Text in Aprima ) UA 61147 Protein neg DateTime(Free Text in ) UA 68203 Blood trace DateTime(Free Text in ) UA 78548 Bilirubin neg DateTime(Free Text in ) UA 74908 Ketones neg DateTime(Free Text in ) UA 13140 Urobilinogen 0.2 DateTime(Free Text in ) UA 38972 Nitrite neg DateTime(Free Text in ) UA 58527 Leukocytes neg DateTime(Free Text in ) UA 93118 Specific [place] 1.020 DateTime(Free Text in ) UA 72203 PH 6.0 DateTime(Free Text in ) UA 26238 Protein N DateTime(Free Text in ) UA 07010 Blood N DateTime(Free Text in ) UA 18259 Bilirubin N DateTime(Free Text in ) UA 87425 Ketones N DateTime(Free Text in ) UA 41330 Urobilinogen N DateTime(Free Text in ) UA 20504 Nitrite POSITIVE DateTime(Free Text in ) UA 40559 Leukocytes N DateTime(Free Text in ) UA 02183 Glucose DateTime(Free Text in ) Review of Systems [...] No alteration of consciousness 12/22/2017 Psychiatric anxiety 01/2018 Psychiatric depression 0 12/22/2017 Psychiatric disturbances of [...] No alteration of consciousness 05/23/2017 Psychiatric anxiety 12/2017 Psychiatric depression 0 05/23/2017 Psychiatric disturbances [...] rash 02/2016 Dermatologic No sores Psychiatric anxiety 05/1 Psychiatric depression 0 09/23/2015 Constitutional No recent [...] No alteration of consciousness 03/18/2015 Psychiatric anxiety 1107/2014 Psychiatric depression 1 05/18/2014 Endocrine No dry [...] No alteration of consciousness 02/13/2015 Psychiatric anxiety 1005/2014 Psychiatric depression 1 Endocrine No dry or [...] Cardiology Integument inspection/palpation Location: back 01/01/2016 kelsey middle upper back Full Exam - General [...] tenderness 03/20/2013 None Full Exam - General 1995 Constitutional general appearance Overall: well nourished 03/20/2013 None Full Exam - General 1995 Constitutional general appearance Overall: well developed 03/20/2013 [...] bilaterally 03/07/2013 None Full Exam - General 1995 Respiratory respiratory effort/rhythm Overall: no retractions 03/07/2013 [...] tenderness 03/07/2013 None Full Exam - General 1995 Abdomen [...] light 01/22/2013 None Full Exam - General 1994 Ears/Nose/Throat otoscopic exam Overall: external auditory canals clear 01/22/2013 None Full Exam - General 1994 Ears/Nose/Throat [...] non-tender 08/14/2012 None Full Exam - General 1995 Chest/Breast breast and axillae palpation Nipple: no [...] non-tender 08/14/2012 None Full Exam - General 1995 [...] time 08/11/2011 None Full Exam - General 1995 Psychiatric mood and affect Overall: normal mood and affect 08/11/2011 None Full Exam - General 1995 Musculoskeletal digits and nails DIPs: fifth 08/11/2011 [...] tenderness 06/01/2011 None Full Exam - General 1995 Constitutional general appearance Overall: well nourished 06/01/2011 None Full Exam - General 1995 Constitutional general appearance Overall: well developed 06/01/2011 None Full Exam - General 1994 Abdomen abdominal exam Overall: normal bowel sounds 06/01/2011 None Full Exam - General 1994 Musculoskeletal head and neck Overall: head atraumatic 06/01/2011 None Full Exam - General 1994 Musculoskeletal head and neck Overall: cervical spine benign 06/01/2011 None Full Exam - General 1995 Constitutional general appearance Overall: well nourished 05/18/2011 None Full Exam - General 1995 Constitutional general appearance Overall: well developed 05/18/2011 None Full Exam - General 1995 Constitutional [...] anxious 05/18/2011 None Procedures Procedure Codes Date PPPS, SUBSEQ VISIT CPT- 4: G0439 10/06/2017 ADMIN PNEUMOCOCCAL V ACCINE SNOMED CT: 52295471 CPT-4: G0009 10/06/2017 PNEUMOCOCCAL VACC [address]: 32602024 CPT-4: 14350 10/06/2017 URINALYSIS NONAUTO W /O SCOPE CPT-4: 31464 03/10/2017 ADMIN INFLUENZA VIRU S VAC CPT-4: G0008 02/02/2017 FLU VACC PRSV FREE I NC ANTIG CPT-4: 38979 02/02/2017 URINALYSIS NONAUTO W /O SCOPE CPT-4: 69041 11/10/2016 ADMIN INFLUENZA VIRU S VAC CPT-4: G0008 02/20/2016 FLU VACC 4 BHARATH 3 YRS PLUS IM Formatting Model/CDA Sections, Assigned to/Juli Cerrato SNOMED CT: 78185770 CPT-4: 73745Xhuxgcf 02/20/2016 TRIAMCINOLONE ACET I [place] NOS CPT-4: J3301 01/26/2016 URINALYSIS NONAUTO W /O SCOPE CPT-4: 64131 09/23/2015 URINALYSIS NONAUTO W /O SCOPE CPT-4: 41501 07/07/2015 ADMIN INFLUENZA VIRU S VAC Formatting Model/CDA Sections, Assigned to CPT-4: J1313Aalrcvt 02/13/2015 FLU VACC 4 BHARATH 3 YRS PLUS IM Formatting Model/CDA Sections, Assigned to SNOMED CT: 98451662 CPT-4: 11419Gsdlbor 02/13/2015 TENIVAC TD VACCINE N O PRSRV 7/> IM Assigned to CPT-4: 13917Gepuhjn 10/23/2014 URINALYSIS NONAUTO W /O SCOPE CPT-4: 40702 10/23/2014 OCCULT BLOOD FECES CPT- 4: 28814 10/08/2014 PPPS, SUBSEQ VISIT CPT- 4: G0439 10/02/2014 TRIAMCINOLONE ACET I [place] NOS CPT-4: J3301 07/08/2014 URINALYSIS NONAUTO W /O SCOPE CPT-4: 10084 06/03/2014 THER/PROPH/DIAG INJ SC/IM CPT-4: 87540 04/18/2014 KETOROLAC TROMETHAMI NE INJ CPT-4: J1885 04/18/2014 ADMIN INFLUENZA VIRU S VAC CPT-4: G0008 01/29/2014 ADMIN PNEUMOCOCCAL V ACCINE Assigned to/Juli Cerrato CT: 12089807 CPT-4: F8205Ckpjkdv 01/29/2014 FLU VAC NO PRSV 4 VA L 3 YRS+ CPT-4: 22164 01/29/2014 URINALYSIS NONAUTO W /O SCOPE CPT-4: 34814 11/12/2013 ROUTINE VENIPUNCTURE CPT-4: 72516 08/20/2013 TRIAMCINOLONE ACET I [place] NOS CPT-4: J3301 03/20/2013 THER/PROPH/DIAG INJ SC/IM CPT-4: 47105 03/20/2013 URINALYSIS NONAUTO W /O SCOPE CPT-4: 80199 03/01/2013 URINALYSIS NONAUTO W /O SCOPE CPT-4: 35023 09/04/2012 TRIAMCINOLONE ACET I [place] NOS CPT-4: J3301 08/22/2012 ROCEPHIN, PER 250 MG CPT-4: J0696 08/22/2012 TRIAMCINOLONE ACET I [place] NOS CPT-4: J3301 05/22/2012 THER/PROPH/DIAG INJ SC/IM CPT-4: 24573 05/22/2012 ROCEPHIN, PER 250 MG CPT-4: J0696 05/22/2012 PRESCRIP TRANSMIT A ERX SY CPT-4: G8553 05/22/2012 ADMIN INFLUENZA VIRU S VAC CPT-4: G0008 02/23/2012 FLULAVAL VACC, 3 YRS & >, IM CPT-4: Q2036 02/23/2012 PRESCRIP TRANSMIT A ERX SY CPT-4: G8553 06/01/2011 Vital Signs Date Vital 01/05/2018 Blood Pressure 1: 122/74 Code: 8480-6 Heart Rate 1: 88 bpm SpO2: 95% Weight: 228 lbs 12/22/2017 Blood Pressure 1: 134/88 Code: 8480-6 Heart Rate 1: 104 bpm Height: 5' SpO2: 90% Weight: 10/06/2017 Blood Pressure 1: 116/72 Code: 8480-6 BMI: 43.7 Code: 24201-1 Heart Rate 1: 83 bpm Height: 5' SpO2: 94% Weight: 224 lbs 08/25/2017 Blood Pressure 1: 128/74 Code: 8480-6 BMI: 42.4 Code: 68827-9 Heart Rate 1: 93 bpm Height: 5' SpO2: 93% Weight: 217 lbs 05/23/2017 Blood Pressure 1: 106/60 Code: 8480-6 BMI: 39.6 Code: 29435-0 Heart Rate 1: 76 bpm Height: 5' SpO2: 97% Weight: 203 lbs 03/10/2017 Blood Pressure 1: 144/82 Code: 8480-6 BMI: 38.3 Code: 78078-1 Heart Rate 1: 91 bpm Height: 5' SpO2: 96% Temperature: 36.8 (C ) / 98.2 (F) Weight: 196 lbs 02/07/2017 Blood Pressure 1: 126/72 Code: 8480-6 BMI: 38.8 Code: 90859-8 Heart Rate 1: 95 bpm Height: 5' SpO2: 96% Weight: 198 lbs 8 oz 12/30/2016 Blood Pressure 1: 122/84 Code: 8480-6 BMI: 38.3 Code: 08058-6 Heart Rate 1: 83 bpm Height: 5' SpO2: 96% Weight: 196 lbs 10/19/2016 Blood Pressure 1: 126/64 Code: 8480-6 Heart Rate 1: 93 bpm Height: 5' SpO2: 97% Weight: 08/09/2016 Blood Pressure 1: 116/68 Code: 8480-6 BMI: 40.2 Code: 92029-9 Heart Rate 1: 98 bpm Height: 5' SpO2: 97% Temperature: 37.5 (C ) / 99.5 (F) Weight: 206 lbs 07/20/2016 Blood Pressure 1: 126/74 Code: 8480-6 BMI: 40.2 Code: 28919-8 Heart Rate 1: 94 bpm Height: 5' SpO2: 95% Weight: 206 lbs 05/27/2016 Blood Pressure 1: 136/76 Code: 8480-6 BMI: 39.1 Code: 25617-5 Heart Rate 1: 95 bpm Height: 5' SpO2: 98% Weight: 200 lbs 04/29/2016 Blood Pressure 1: 128/76 Code: 8480-6 Heart Rate 1: 72 bpm Height: SpO2: 96% Weight: 04/02/2016 Blood Pressure 1: 138/88 Code: 8480-6 BMI: 38.5 Code: 60926-9 Heart Rate 1: 88 bpm Height: 5' SpO2: 96% Weight: 197 lbs 03/18/2016 Blood Pressure 1: 148/88 Code: 8480-6 BMI: 38.5 Code: 63759-0 Heart Rate 1: 66 bpm Height: 5' SpO2: 98% Weight: 197 lbs 01/26/2016 BMI: 39.5 Code: 95420-6 Height: 5' Weight: 202 lbs 01/01/2016 Blood Pressure 1: 120/80 Code: 8480-6 BMI: 40.0 Code: 38560-8 Heart Rate 1: 86 bpm Height: 5' SpO2: 94% Weight: 205 lbs 12/25/2015 Blood Pressure 1: 138/80 Code: 8480-6 BMI: 40.0 Code: 87621-1 Height: 5' Weight: 205 lbs 12/08/2015 Blood Pressure 1: 122/72 Code: 8480-6 Heart Rate 1: 100 bpm Height: 5' SpO2: 98% 09/23/2015 Blood Pressure 1: 130/82 Code: 8480-6 BMI: 40.2 Code: 85980-6 Heart Rate 1: 77 bpm Height: 5' SpO2: 97% Weight: 206 lbs 06/19/2015 Blood Pressure 1: 128/80 Code: 8480-6 BMI: 40.8 Code: 52576-9 Heart Rate 1: 80 bpm Height: 5' SpO2: 94% Weight: 209 lbs 05/19/2015 Blood Pressure 1: 128/78 Code: 8480-6 BMI: 41.0 Code: 80063-9 Heart Rate 1: 103 bpm Height: 5' SpO2: 97% Weight: 210 lbs 04/28/2015 Blood Pressure 1: 128/76 Code: 8480-6 BMI: 41.4 Code: 24696-3 Heart Rate 1: 72 bpm Height: 5' Weight: 212 lbs 03/18/2015 Blood Pressure 1: 128/78 Code: 8480-6 BMI: 41.6 Code: 07118-2 Heart Rate 1: 74 bpm Height: 5' SpO2: 97% Weight: 213 lbs 02/27/2015 Blood Pressure 1: 128/70 Code: 8480-6 BMI: 41.2 Code: 32715-2 Heart Rate 1: 74 bpm Height: 5' SpO2: 95% Weight: 211 lbs 02/13/2015 Blood Pressure 1: 148/80 Code: 8480-6 BMI: 41.2 Code: 90467-6 Heart Rate 1: 90 bpm Height: 5' SpO2: 95% Weight: 211 lbs 11/18/2014 Blood Pressure 1: 124/60 Code: 8480-6 BMI: 40.8 Code: 92950-4 Heart Rate 1: 75 bpm Height: 5' SpO2: 97% Weight: 209 lbs 10/23/2014 Blood Pressure 1: 118/70 Code: 8480-6 BMI: 43.3 Code: 84378-6 Heart Rate 1: 78 bpm Height: 4'10" SpO2: 96% Temperature: 36.5 (C ) / 97.7 (F) Weight: 207 lbs 10/02/2014 Blood Pressure 1: 118/78 Code: 8480-6 BMI: 42.5 Code: 04829-6 Heart Rate 1: 77 bpm Height: 4'10" SpO2: 97% Waist Measure (cm): 107 cm Weight: 207 lbs 09/25/2014 Blood Pressure 1: 140/78 Code: 8480-6 Blood Pressure 2: 140/80 Code: 8480-6 09/23/2014 Blood Pressure 1: 106/62 Code: 8480-6 BMI: 42.9 Code: 77996-4 Heart Rate 1: 99 bpm Height: 4'10" SpO2: 97% Weight: 209 lbs 07/08/2014 Blood Pressure 1: 136/82 Code: 8480-6 BMI: 43.6 Code: 76768-5 Heart Rate 1: 72 bpm Height: 4'10" SpO2: 96% Temperature: 37.0 (C ) / 98.6 (F) Weight: 212 lbs 05/31/2014 Blood Pressure 1: 140/88 Code: 8480-6 BMI: 41.1 Code: 56458-9 Heart Rate 1: 92 bpm Height: 4'10" Weight: 200 lbs 04/18/2014 Blood Pressure 1: 132/78 Code: 8480-6 BMI: 41.9 Code: 10685-5 Heart Rate 1: 80 bpm Height: 4'10" Weight: 204 lbs 03/05/2014 Blood Pressure 1: 128/80 Code: 8480-6 BMI: 41.3 Code: 14859-2 Heart Rate 1: 60 bpm Height: 4'10" SpO2: 96% Weight: 201 lbs 01/29/2014 Blood Pressure 1: 142/88 Code: 8480-6 BMI: 41.5 Code: 48763-1 Heart Rate 1: 80 bpm Height: 4'10" Weight: 202 lbs 10/23/2013 Blood Pressure 1: 110/56 Code: 8480-6 BMI: 41.5 Code: 11295-9 Heart Rate 1: 76 bpm Height: 4'10" Weight: 202 lbs 10/11/2013 Blood Pressure 1: 124/74 Code: 8480-6 BMI: 41.5 Code: 61811-9 Heart Rate 1: 76 bpm Height: 4'10" Weight: 202 lbs 09/17/2013 Blood Pressure 1: 140/84 Code: 8480-6 Heart Rate 1: 80 bpm Weight: 203 lbs 08/27/2013 Blood Pressure 1: 124/80 Code: 8480-6 Heart Rate 1: 72 bpm Weight: 08/20/2013 Blood Pressure 1: 110/50 Code: 8480-6 BMI: 40.3 Code: 98120-7 Heart Rate 1: 72 bpm Height: 4'10" Weight: 196 lbs 07/10/2013 Blood Pressure 1: 110/56 Code: 8480-6 Heart Rate 1: 82 bpm SpO2: 95% Weight: 03/20/2013 Blood Pressure 1: 158/80 Code: 8480-6 Heart Rate 1: 72 bpm Temperature: 37.1 (C) / 98.8 (F) Weight: 189 lbs 03/07/2013 Blood Pressure 1: 108/66 Code: 8480-6 BMI: 38.8 Code: 67803-5 Heart Rate 1: 76 bpm Height: 4'10" Weight: 189 lbs 01/22/2013 Blood Pressure 1: 110/68 Code: 8480-6 BMI: 38.8 Code: 80593-9 Heart Rate 1: 76 bpm Height: 4'10" Weight: 189 lbs 08/22/2012 Blood Pressure 1: 126/68 Code: 8480-6 BMI: 37.0 Code: 51042-3 Heart Rate 1: 76 bpm Height: 4'10" Temperature: 36.7 (C ) / 98.0 (F) Weight: 180 lbs 08/14/2012 Blood Pressure 1: 106/64 Code: 8480-6 BMI: 36.6 Code: 08299-9 Heart Rate 1: 72 bpm Height: 4'10" Weight: 178 lbs 05/22/2012 Blood Pressure 1: 124/72 Code: 8480-6 Heart Rate 1: 80 bpm Temperature: 36.4 (C) / 97.6 (F) Weight: 185 lbs 04/17/2012 Blood Pressure 1: 120/66 Code: 8480-6 BMI: 37.0 Code: 25831-5 Heart Rate 1: 65 bpm Height: 4'10" SpO2: 98% Weight: 180 lbs 12/01/2011 Blood Pressure 1: 122/58 Code: 8480-6 Heart Rate 1: 76 bpm Respiratory Rate: 24 bpm Weight: 175 lbs 08/11/2011 Blood Pressure 1: 98/44 Code: 8480-6 BMI: 34.1 Code: 64949-0 Heart Rate 1: 86 bpm Height: 4'10" Respiratory Rate: 16 bpm Weight: 166 lbs 06/01/2011 Blood Pressure 1: 104/62 Code: 8480-6 BMI: 34.8 Code: 16413-4 Heart Rate 1: 72 bpm Height: 4'10" Respiratory Rate: 16 bpm Weight: 169 lbs 8 oz 05/18/2011 Blood Pressure 1: 130/66 Code: 8480-6 BMI: 34.8 Code: 90252-0 Heart Rate 1: 64 bpm Height: 4'11" Respiratory Rate: 16 bpm Weight: 171 lbs Functional Status No Functional Status data History of Present Illness Symptom Name Status Resu lt Effective Date Notes dyspnea Quality intermit tent 12/22/2017 None dyspnea Onset and Resolution ongoing 12/22/2017 None dyspnea Onset of Symptom _ months ago 12/22/2017 None dyspnea Limitation on Activities moderately limits activities 12/22/2017 None dyspnea Frequency of Episodes daily 12/22/2017 None dyspnea Pertinent Findings Denies chest discomfort 12/22/2017 None dyspnea Pertinent Findings Denies cough 12/22/2017 None dyspnea Pertinent Findings Denies fever 12/22/2017 None hypertension Quality int ermittent 12/22/2017 None hypertension Onset and Resolution ongoing 12/22/2017 None hypertension Onset of Symptom _ years ago 12/22/2017 None hypertension Blood Pressure Values not checking blood pressure at home 12/22/2017 None hypertension Pertinent Findings dyspnea 12/22/2017 None hypertension Pertinent Findings Denies edema 12/22/2017 None Annual Medicare Wellness Exam Life S atisfaction satisfied 10/06/2017 Non e Annual Medicare Wellness Exam Motor Vehicle Safety always fastens seat belt: yes 2017 None Annual Medicare Wellness Exam Motor Vehicle Safety drives after drinking: no 10/06/2017 None Annual Medicare Wellness Exam Motor Vehicle Safety rides with someone who has been drinking: no 10/06/2017 None Annual Medicare Wellness Exam Nutrition servings of fried food / high fat foods per day: 1 10/06/2017 None Annual Medicare Wellness Exam Nutrition servings of high fiber / whole grain per day: 2 10/06/2017 None Annual Medicare Wellness Exam Nutrition servings of vegetables / fruit per day: 3 10/06/2017 None Annual Medicare Wellness Exam Smokin g and Tobacco Use non smoker 10/06/2017 No ne Annual Medicare Wellness Exam Social & Emotional Support rarely 10/06/2017 None Annual Medicare Wellness Exam Stress almost all of the time 10/06/2017 None Annual Medicare Wellness Exam Sun Exposure protects skin when outdoors: no 10/06/2017 None Annual Medicare Wellness Exam Alcohol Use does not drink any alcohol 10/06/2017 None Annual Medicare Wellness Exam Aspirin Use yes 10/06/2017 None Annual Medicare Wellness Exam Blood Glucose (self reported) desireable (below 100) 10/06/2017 None Annual Medicare Wellness Exam Blood Pressure (self reported) low / normal (120/80) 10/06/2017 None Annual Medicare Wellness Exam Choles terol (self reported) diagnosed with elevated cholesterol 10/06/2017 None Annual Medicare Wellness Exam Depres jessa (last 6 months) some of the time 10/06/2017 None Annual Medicare Wellness Exam Depres jessa or Hopelessness almost never 10/06/2017 None Annual Medicare Wellness Exam Descri be Your Health fair 10/06/2017 None Annual Medicare Wellness Exam Exerci se Habits exercises 3 days per week 10/06/2017 None Annual Medicare Wellness Exam Exerci se Habits exercises 20 minutes per day 10/06/2017 None Annual Medicare Wellness Exam Handli ng Stress has problems coping 10/06/2017 None Annual Medicare Wellness Exam Hemagl obin A-1C (self reported) don't know 10/06/2017 No ne Annual Medicare Wellness Exam Hours of Sleep 10 10/06/2017 None Annual Medicare Wellness Exam Intera ction with Friends no 10/06/2017 None Annual Medicare Wellness Exam Intere sts & Pleasure some of the time 10/06/2017 None disturbances of thinking Quality acute 08/25/2017 None disturbances of thinking Quality paranoia 08/25/2017 None disturbances of thinking Alleviating Factors medication 08/25/2017 No ne cough Location in the th roat 08/25/2017 None cough Quality chronic 08/25/2017 None cough Quality dry 08/25/2017 None cough Quality improving 08/25/2017 None cough Quality stable 08/25/2017 None cough Onset and Resolution ongoing 08/25/2017 None cough Triggers no known associated factors 08/25/2017 None cough Pertinent Findings Denies apnea 08/25/2017 None cough Pertinent Findings Denies chest discomfort 08/25/2017 None cough Pertinent Findings dyspnea 08/25/2017 on exertion cough Pertinent Findings Denies fever 08/25/2017 None cough Pertinent Findings Denies hoarseness 08/25/2017 None cough Pertinent Findings Denies ill contacts 08/25/2017 None cough Pertinent Findings Denies lethargy 08/25/2017 None cough Pertinent Findings Denies muscle aches 08/25/2017 None cough Pertinent Findings Denies nasal congestion 08/25/2017 None cough Pertinent Findings Denies post nasal drip 08/25/2017 None cough Pertinent Findings Denies purulent sputum 08/25/2017 None cough Pertinent Findings Denies sputum production 08/25/2017 None disturbances of thinking Quality acute 05/23/2017 None disturbances of thinking Quality paranoia 05/23/2017 None disturbances of thinking Alleviating Factors medication 05/23/2017 No ne sinus congestion Quality acute 05/23/2017 None sinus congestion Quality fullness 05/23/2017 None sinus congestion Onset and Resolution sudden in onset 05/23/2017 None sinus congestion Onset of Symptom 1-2 weeks ago 05/23/2017 None sinus congestion Pertinent Findings cough 05/23/2017 None sinus congestion Pertinent Findings fever 05/23/2017 --100.5 per patient one d ay- took tylenol cough Quality intermitte nt 03/10/2017 None cough Quality productive 03/10/2017 None cough Quality acute 03/10/2017 None cough Pertinent Findings sputum production 03/10/2017 yellowish, green cough Pertinent Findings Denies fever 03/10/2017 None cough Pertinent Findings Denies chills 03/10/2017 None cough Onset and Resolution sudden in onset 03/10/2017 None cough Onset of Symptom 4 weeks ago 03/10/2017 None cough Triggers change of seasons 03/10/2017 None cough Triggers known all ergens 03/10/2017 None urinary incontinence Quality acute 03/10/2017 None urinary incontinence Quality stress incontinence 03/10/2017 None urinary incontinence Onset and Resolution sudden in onset 03/10/2017 None urinary incontinence Onset of Symptom 2-3 weeks ago 03/10/2017 None urinary incontinence Triggers sneezing 03/10/2017 None urinary incontinence Triggers coughing 03/10/2017 None urinary incontinence Pertinent Findings urinary urgency 03/10/2017 has been ongoing urinary incontinence Pertinent Findings Denies fever 03/10/2017 None urinary incontinence Pertinent Findings Denies chills 03/10/2017 None headache Location diffus helena 02/07/2017 None headache Quality aching 02/07/2017 None headache Quality constant 02/07/2017 None headache Quality acute 02/07/2017 None headache Onset and Resolution sudden in onset 02/07/2017 None headache Onset and Resolution ongoing 02/07/2017 None headache Pertinent Findings Denies blurred vision 02/07/2017 None headache Pertinent Findings Denies diplopia 02/07/2017 None headache Pertinent Findings dizziness 02/07/2017 None headache Pertinent Findings Denies nausea 02/07/2017 None headache Pertinent Findings Denies vomiting 02/07/2017 None headache Pertinent Findings Denies weakness 02/07/2017 None headache Pertinent Findings Denies photophobia 02/07/2017 None headache Pertinent Findings Denies phonophobia 02/07/2017 None headache Onset of Symptom _ months ago 02/07/2017 None headache Limitation on Activities does not limit activities 02/07/2017 None headache Frequency of Episodes unchanged 02/07/2017 None headache Significant Medical Conditions trauma 02/07/2017 None headache Triggers no kno wn associated factors 02/07/2017 None heel pain Location on th e left 12/30/2016 None heel pain Quality acute 12/30/2016 None heel pain Onset and Resolution ongoing 12/30/2016 None heel pain Onset of Symptom _ weeks ago 12/30/2016 fell on 09/27 and broke ca lcaneous heel pain Limitation on Activities restricts weight bearing activity 12/30/2016 None heel pain Severity moder ate 12/30/2016 None heel pain Significant Medical Conditions prior foot injury 12/30/2016 None heel pain Alleviating Factors rest 12/30/2016 None heel pain Alleviating Factors well padded shoes 12/30/2016 None nasal allergies Location in both nares 10/19/2016 [...] None Hospital Follow Up _ Oth er: [facility] 02/13/2015 None back pain Quality dull [...] days ago 08/27/2013 fell on cement at [employer] ankle pain Pertinent Findings stiffness 08/27/2013 None [...] Hospital Follow Up _ Oth er: from [facility] 08/20/2013 started on remeron and [...] t states that since her stay in [facility] - she is [...] Exercise no exercise 03/20/2013 None 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 03/07/2013 None hypothyroid Severity mil d [...] Findings Denies edema 03/07/2013 None 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 01/22/2013 None hypothyroid Severity mil d [...] known all ergens 08/22/2012 None 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 08/14/2012 None hypothyroid Severity mil d [...] decreased energy level 05/22/2012 None 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 P ATIENT, LEVEL IV Diagnosis: Other obesity due to excess calories[ICD10: E66.09] Diagnosis: Vitamin D deficiency, unspecified[ICD10: E55.9] Diagnosis: Shortness of breath[ICD10: R06.02] Diagnosis: Bipolar disorder, current episode depressed, moderate[ICD10: F31.32] Jodie Littlejohn MD, [facility] CPT-4: 29620 12/22/2017 ([id number] EST. 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 CPT-4: 11009 08/25/2017 ([id number]) 20993 EST. P ATIENT, LEVEL IV Diagnosis: Essential (primary) hypertension[ICD10: I10] Diagnosis: Atrophy of thyroid (acquired)[ICD10: E03.4] Diagnosis: Bipolar disorder, in partial remission, most recent episode manic[ICD10: F31.73] Jodie Littljeohn MD, [facility] CPT-4: 83058 05/23/2017 ([id number]) 81761 EST. P ATIENT, LEVEL III Diagnosis: Dysuria[ICD10: R30.0] Diagnosis: Cough[ICD10: R05] Diagnosis: Acute upper respiratory infection, unspecified[ICD10: J06.9] Michelle Littlejohn MD, [facility] CPT-4: 06854 03/10/2017 ([id number]) 31060 EST. P ATIENT, LEVEL III Diagnosis: Headache[ICD10: R51] Diagnosis: Dizziness and giddiness[ICD10: R42] Diagnosis: Unspecified visual disturbance[ICD10: H53.9] Michelle Littlejohn MD, [facility] CPT-4: 56794 02/07/2017 ([id number]) 81980 EST. P ATIENT, LEVEL IV Diagnosis: Essential (primary) hypertension[ICD10: I10] Diagnosis: Bipolar disorder, in partial remission, most recent episode manic[ICD10: F31.73] Diagnosis: Hypothyroidism, unspecified[ICD10: E03.9] Michelle Littlejohn MD, [facility] CPT-4: 49892 12/30/2016 ([id number]) 71576 EST. P ATIENT, LEVEL III Diagnosis: Unsteadiness on feet[ICD10: R26.81] Diagnosis: Unspecified fracture of left calcaneus, initial encounter for closed fracture[ICD10: S92.002A] Diagnosis: Allergic rhinitis due to pollen[ICD10: J30.1] Michelle Littlejohn MD, [facility] CPT-4: 47743 10/19/2016 ([id number]) 84288 EST. P ATIENT, LEVEL III Diagnosis: Cough[ICD10: R05] Diagnosis: Fever, unspecified[ICD10: R50.9] Diagnosis: Acute recurrent maxillary sinusitis[ICD10: J01.01] Michelle Littlejohn MD, [facility] CPT-4: 63398 08/09/2016 ([id number]) 48867 EST. P ATIENT, LEVEL III Diagnosis: Essential (primary) hypertension[ICD10: I10] Diagnosis: Allergic rhinitis due to pollen[ICD10: J30.1] Diagnosis: Bipolar disorder, current episode depressed, moderate[ICD10: F31.32] Michelle Littlejohn MD, [facility] CPT-4: 79824 07/20/2016 ([id number]) 94050 EST. P ATIENT, LEVEL III Diagnosis: Cough[ICD10: R05] Diagnosis: Bipolar disorder, current episode depressed, moderate[ICD10: F31.32] Diagnosis: Acute upper respiratory infection, unspecified[ICD10: J06.9] Michelle Littlejohn MD, [facility] CPT-4: 38518 05/27/2016 ([id number]) 20950 EST. P ATIENT, LEVEL III Diagnosis: Bipolar disorder, current episode manic without psychotic features, moderate[ICD10: F31.12] Diagnosis: Essential (primary) hypertension[ICD10: I10] Michelle Littlejohn MD, [facility] CPT-4: 99568 04/29/2016 ([id number]) 76319 EST. P ATIENT, LEVEL III Diagnosis: Bipolar disorder, current episode depressed, moderate[ICD10: F31.32] Michelle Littlejohn MD, [facility] CPT-4: 22889 04/02/2016 ([id number]) 38346 EST. P ATIENT, LEVEL IV Diagnosis: Bipolar disorder, current episode manic without psychotic features, moderate[ICD10: F31.12] Diagnosis: Essential (primary) hypertension[ICD10: I10] Michelle Littlejohn MD, [facility] CPT-4: 65105 03/18/2016 ([id number]) 15434 EST. P ATIENT, LEVEL III Diagnosis: Acute laryngopharyngitis[ICD10: J06.0] Diagnosis: Cough[ICD10: R05] Diagnosis: Allergic rhinitis due to pollen[ICD10: J30.1] Michelle Littlejohn MD, [facility] CPT-4: 29338 01/26/2016 ([id number]) Miscellaneou s no charge Diagnosis: Other seborrheic keratosis[ICD10: L82.1] Michelle Littlejohn MD, [facility] CPT-4: 37797 01/01/2016 ([id number]) 50759 EST. P ATIENT, LEVEL III Diagnosis: Essential (primary) hypertension[ICD10: I10] Diagnosis: Mixed hyperlipidemia[ICD10: E78.2] Diagnosis: Other obesity due to excess calories[ICD10: E66.09] Diagnosis: Frequency of micturition[ICD10: R35.0] Michelle Littlejohn MD, [facility] CPT-4: 14055 12/25/2015 ([id number]) 76105 EST. P ATIENT, LEVEL IV Diagnosis: Gastro-esophageal reflux disease without esophagitis[ICD10: K21.9] Diagnosis: Essential (primary) hypertension[ICD10: I10] Diagnosis: Generalized anxiety disorder[ICD10: F41.1] Michelle Littlejohn MD, [facility] CPT-4: 66972 12/08/2015 ([id number]) 60596 EST. P ATIENT, LEVEL IV Diagnosis: Bipolar disorder, current episode depressed, moderate[ICD10: F31.32] Diagnosis: Essential (primary) hypertension[ICD10: I10] Diagnosis: Hypothyroidism, unspecified[ICD10: E03.9] Diagnosis: Allergic rhinitis due to pollen[ICD10: J30.1] Diagnosis: Dysuria[ICD10: R30.0] Michelle Littlejohn MD, [facility] CPT-4: 37647 09/23/2015 ([id number]) 47539 EST. P ATIENT, LEVEL III Diagnosis: Essential (primary) hypertension[ICD10: I10] Diagnosis: Hypothyroidism, unspecified[ICD10: E03.9] Diagnosis: Mixed hyperlipidemia[ICD10: E78.2] Diagnosis: Bipolar disorder, current episode depressed, moderate[ICD10: F31.32] Michelle Littlejohn MD, [facility] CPT-4: 71391 06/19/2015 ([id number]) 29142 EST. P ATIENT, LEVEL III Diagnosis: Essential (primary) hypertension[ICD10: I10] Diagnosis: Major depressive disorder, single episode, unspecified[ICD10: F32.9] Michelle Littlejohn MD, [facility] CPT-4: 33501 05/19/2015 ([id number]) 80588 EST. P ATIENT, LEVEL III Diagnosis: Rash and other nonspecific skin eruption[ICD10: R21] Jodie Littlejohn MD, [facility] CPT-4: 99668 04/28/2015 ([id number]) 87618 EST. P ATIENT, LEVEL III Diagnosis: Essential (primary) hypertension[ICD10: I10] Diagnosis: Bipolar disorder, current episode depressed, moderate[ICD10: F31.32] Michelle Littlejohn MD, [facility] CPT-4: 12202 03/18/2015 ([id number]) 81688 EST. P ATIENT, LEVEL II Diagnosis: Other seborrheic keratosis[ICD10: L82.1] Michelle Littlejohn MD, [facility] CPT-4: 38771 02/27/2015 ([id number]) 31381 EST. P ATIENT, LEVEL IV Diagnosis: Hypothyroidism, unspecified[ICD10: E03.9] Diagnosis: Bipolar disorder, current episode depressed, moderate[ICD10: F31.32] Michelle Littlejohn MD, [facility] CPT-4: 78649 02/13/2015 ([id number]) 53073 EST. P ATIENT, LEVEL III Diagnosis: Yeast infection involving the vagina and surrounding area[ICD9: 112.1] Diagnosis: Back pain[ICD9: 724.5] Diagnosis: Muscle strain[ICD9: 848.9] Katerin Littlejohn MD, [facility] CPT-4: 60525 11/18/2014 ([id number]) 46368 EST. P ATIENT, LEVEL IV Diagnosis: Dog bite[ICD9: 879.8] Diagnosis: CELLULITIS OF ARM[ICD9: 682.3] Diagnosis: DYSURIA[ICD9: 788.1] Katerin Littlejohn MD, [facility] CPT-4: 77424 10/23/2014 ([id number]) Miscellaneou s no charge Diagnosis: ESSENTIAL HYPERTENSION[ICD9: 401.9] Jodie Littlejohn MD, [facility] CPT- 4: 32155 09/25/2014 ([id number]) 43821 EST. P ATIENT, LEVEL IV Diagnosis: Hypotension[ICD9: 458.9] Diagnosis: DIZZINESS AND GIDDINESS[ICD9: 780.4] Diagnosis: HYPOTHYROIDISM[ICD9: 244.9] Michelle Littlejohn MD, [facility] CPT- 4: 27303 09/23/2014 ([id number]) 55481 EST. P ATIENT, LEVEL III Diagnosis: ACUTE URI[ICD9: 465.9] Diagnosis: COUGH[ICD9: 786.2] Diagnosis: EDEMA[ICD9: 782.3] Michelle Littlejohn MD, [facility] CPT-4: 57573 07/08/2014 ([id number]) 77515 EST. P ATIENT, LEVEL IV Diagnosis: ESSENTIAL HYPERTENSION[ICD9: 401.9] Diagnosis: HYPOTHYROIDISM[ICD9: 244.9] Diagnosis: Dysuria[ICD9: 788.1] Jodie Littlejohn MD, [facility] CPT-4: 13181 05/31/2014 ([id number]) 91200 EST. P ATIENT, LEVEL III Diagnosis: Back pain[ICD9: 724.5] Jodie Littlejohn MD, [facility] CPT-4: 74829 04/18/2014 ([id number]) 42022 EST. P ATIENT, LEVEL IV Diagnosis: Back pain[ICD9: 724.5] Diagnosis: Scab[ICD9: 782.8] Diagnosis: BIPOLAR AFFECTIVE, MANIC, UNSPEC[ICD9: 296.40] Jodie Littlejohn MD, [facility] CPT-4: 15456 03/05/2014 ([id number]) 96201 EST. P ATIENT, LEVEL III Diagnosis: ESSENTIAL HYPERTENSION[ICD9: 401.9] Jodie Littlejohn MD, [facility] CPT- 4: 79921 01/29/2014 ([id number]) 20216 EST. P ATIENT, LEVEL IV Diagnosis: ESSENTIAL HYPERTENSION[SNOMED: 79101158] Diagnosis: EDEMA[ICD9: 782.3] Diagnosis: DEPRESSIVE DISORDER NEC[ICD9: 311] Jodie Littlejohn MD, [facility] CPT- 4: 96111 10/23/2013 07424 EST. PATIENT, LEVEL II Diagnosis: Rash[ICD9: 782.1] Michelle Littlejohn MD, [facility] CPT-4: 07033 10/11/2013 ([id number]) 77345 EST. P ATIENT, LEVEL III Diagnosis: EDEMA[ICD9: 782.3] Jodie Littlejohn MD, [facility] CPT-4: 33621 09/17/2013 ([id number]) 23643 EST. P ATIENT, LEVEL III Diagnosis: EDEMA[ICD9: 782.3] Diagnosis: Left ankle pain[ICD9: 719.47] Michelle Littlejohn MD, [facility] CPT- 4: 68123 08/27/2013 ([id number]) 84401 EST. P ATIENT, LEVEL IV Diagnosis: BIPOLAR AFFECTIVE, MANIC, UNSPEC[ICD9: 296.40] Diagnosis: HYPOTHYROIDISM[ICD9: 244.9] Jodie Littlejonh MD, [facility] CPT-4: 87651 08/20/2013 ([id number]) 35921 EST. P ATIENT, LEVEL IV Diagnosis: BIPOLAR AFFECTIVE, MANIC, UNSPEC[ICD9: 296.40] Diagnosis: DEPRESSIVE DISORDER NEC[ICD9: 311] Jodie Littlejohn MD, [facility] CPT- 4: 70914 07/10/2013 ([id number]) 12575 EST. 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 CPT-4: 12527 03/20/2013 ([id number]) 67381 EST. P ATIENT, LEVEL IV Diagnosis: Elevated fasting glucose[ICD9: 790.21] Diagnosis: HYPOTHYROIDISM[ICD9: 244.9] Diagnosis: DEPRESSIVE DISORDER NEC[ICD9: 311] Jodie Littlejohn MD, [facility] CPT- 4: 36660 03/07/2013 ([id number]) 88779 EST. P ATIENT, LEVEL III Diagnosis: HYPOTHYROIDISM[ICD9: 244.9] Diagnosis: DEPRESSIVE DISORDER NEC[ICD9: 311] Jodie Littlejohn MD, [facility] CPT- 4: 66094 01/22/2013 ([id number]) 87844 EST. P ATIENT, LEVEL III Diagnosis: ACUTE URI[ICD9: 465.9] Diagnosis: COUGH[ICD9: 786.2] Michelle Littlejohn MD, [facility] CPT-4: 03716 08/22/2012 ([id number]) 77918 EST. P ATIENT, LEVEL IV Diagnosis: ESSENTIAL HYPERTENSION[SNOMED: 17145015] Diagnosis: HYPERLIPIDEMIA[ICD9: 272.4] Jodie Littlejohn MD, [facility] CPT-4: 86254 08/14/2012 ([id number]) 10625 EST. P ATIENT, LEVEL III Diagnosis: ACUTE URI[ICD9: 465.9] Jodie Littlejohn MD, [facility] CPT-4: 05900 05/22/2012 ([id number]) 20181 EST. P ATIENT, LEVEL III Diagnosis: ESSENTIAL HYPERTENSION[SNOMED: 78878060] Jodie Littlejohn MD, [facility] CPT-4: 75356 04/17/2012 ([id number]) 76589 EST. P ATIENT, LEVEL IV Diagnosis: HYPOTHYROIDISM[ICD9: 244.9] Diagnosis: HYPERLIPIDEMIA[ICD9: 272.4] Diagnosis: DEPRESSIVE DISORDER NEC[ICD9: 311] Diagnosis: Vitamin D deficiency[ICD9: 268.9] Jodie Littlejohn MD, [facility] CPT-4: 04738 12/01/2011 ([id number]) 69592 EST. 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 CPT- 4: 88156 08/11/2011 ([id number]) [id number] EST. P ATIENT, LEVEL IV Diagnosis: MASTODYNIA[ICD9: 611.71] Diagnosis: DEPRESSIVE DISORDER NEC[ICD9: 311] Diagnosis: Flatulence[ICD9: 787.3] Diagnosis: ABRASION HAND[ICD9: 914.0] [facility] CPT-4: 69753 06/01/2011 [id number] EST. PATIENT, LEVEL IV Diagnosis: Breast pain in female[ICD9: 611.71] Diagnosis: DEPRESSIVE DISORDER NEC[ICD9: 311] Diagnosis: HYPERLIPIDEMIA[ICD9: 272.4] Diagnosis: HYPOTHYROIDISM[ICD9: 244.9] [facility] CPT-4: 09504 05/18/2011 Plan of Care Planned Activity Notes C odes Status Date Patient Education: Patient Medication Summary Completed 01/05/2018 Visit Plan: Obesity - chronic issue with this patient. The pt has been counseled about diet changes, calorie restriction, and need to exercise. Pt will RTC in every two weeks for weight check. Dyspnea due to obesit y - cardiac work-up has been negative. bipolar mood disorder - symptom have been stable on current regimen - pt to continue with psychiatric care, current medications, call if symptoms are starting to return. 12/22/2017 Appointment: Jodie Littlejohn WPtel: [id number] (15 min) Moderate 12/22/2017 Patient Education: Patient Medication Summary Completed 12/22/2017 Patient Education: Obesity Completed 12/22/2017 Visit Plan: Medicare Exam - today w e discussed the patients past history, immunizations, preventative [...] her DOPA paperwork for health care surrogate. 10/06/2017 Appointment: [facility] - Annual Wellness Visit 10/06/2017 Patient Education: Patient Medication Summary Completed 10/06/2017 Care Plan: SCREENINGMAMMOGRAPHYDIGITAL LOINC : 17522-9 Pending 10/06/2017 Visit Plan: Hypertension - well con trolled - continue with current medications, continue with [...] of control. Hyperlipidemia - pt has been counselor marriage and family ed about appropriate diet, exercise, and need for [...] - call if cough is not improving. 08/25/2017 Appointment: Jodie Littlejohn WPtel: [id number] (15 min) Moderate 08/25/2017 Patient Education: Patient Medication Summary Completed 08/25/2017 [facility]ment[phone] (15 min) Moderate 05/24/2017 Visit Plan: Hypertension - well con trolled - continue with current medications, continue with [...] months based on previous levels of control. B ipolar-recent hospitalization at [facility] with pt residing at [facility] - continue with current management. Defer Bipolar treatment to psychiatry. 05/23/2017 Appointment: Jodie Littlejohn WPtel: [id number] (15 min) Moderate 05/23/2017 Patient Education: Patient Medication Summary Completed 05/23/2017 Appointment: Michelle Garcia WPtel: [facility]6 [phone] [place] (30 min) Complex 04/01/2017 Visit Plan: Dysuria-UA positive-bel l culture and treat as appropriate URI with persistent cough - Pt advised to increase fluids, vitamin C. Discussed natural and expected course of this diagnosis and need to alert me if symptoms do not follow expected course, or if any worse. RX sent to patient's pharmacy. 03/10/2017 Appointment: Michelle Garcia WPtel: [facility]5 [phone] [place] (30 min) Complex 03/10/2017 Patient Education: Patient Medication Summary Completed 03/10/2017 Patient Education: Obesity Completed 03/10/2017 Visit Plan: Gpjzakzed-eaehjsae-jetz on changes-recommend MRI brain for further evaluation-also discussed eye exam 02/07/2017 Appointment: Michelle Garcia WPtel: [phone] [place] (30 min) Complex 02/07/2017 Patient Education: Patient Medication Summary Completed 02/07/2017 Patient Education: Obesity Completed 02/07/2017 Appointment: Injection 02/02/2017 Patient Education: Patient Medication Summary Completed 02/02/2017 Visit Plan: Hypertension - well con trolled - continue with current medications, continue with [...] months based on previous levels of control. B ipolar-check depakote level today 12/30/2016 Patient Education: Patient Medication Summary Completed 12/30/2016 Patient Education: Obesity Completed 12/30/2016 Appointment: Michelle Garcia WPtel: [phone] [phone] (30 min) Complex 12/23/2016 Visit Plan: UTI - pt with positive urinalysis - culture sent if appropriate. Antibiotic electronically prescribed to pt's pharmacy of choice. Pt to call if symptoms do not improve. 11/10/2016 Patient Education: Patient Medication Summary Completed 11/10/2016 Visit Plan: Fracture of left heel-g ait instability-seeing Dr Artis-no surgery required-patient is using wheelchair or walker with stand by assist-home health to continue working with her. Ftzgcrfid-dpwtrvw-gxrzjnqq daily anti histamine 10/19/2016 Appointment: Michelle Garcia WPtel: [phone] (30 min) Complex 10/19/2016 Patient Education: Patient Medication Summary Completed 10/19/2016 Appointment: Lab Draw 09/09/2016 Patient Education: Patient Medication Summary Completed 09/09/2016 Visit Plan: Sinusitis - Pt has acut e infection - pain in face, maxillary region, Pt informed to use decongestant, RX given to patient, sinus rinses also recommended. Call if symptoms do not show improvement. 08/09/2016 Visit Plan: Sinusitis - Pt has acut e infection - pain in face, maxillary region, Pt informed to use decongestant, RX given to patient, sinus rinses also recommended. Call if symptoms do not show improvement. 08/09/2016 Appointment: Michelle Garcia WPtel: [facility]4 [phone] (15 min) Moderate 08/09/2016 Patient Education: Patient Medication Summary Completed 08/09/2016 Visit Plan: Hypertension - well con trolled - continue with current medications, continue with [...] spray. Bipolar-symptoms stable-no changes-call with any concerns. 07/20/2016 Appointment: Michelle Garcia WPtel: [address] [place], [place] [phone] (30 min) Complex 07/20/2016 Patient Education: Patient Medication Summary Completed 07/20/2016 Patient Education: Obesity Completed 07/20/2016 Visit Plan: URI - Pt advised to inc rease fluids, vitamin C. Discussed natural and expected course of this diagnosis and need to alert me if symptoms do not follow expected course, or if any worse. RX sent to patient's pharmacy. Bipolar-symptoms stable-no changes 05/27/2016 Appointment: Michelle Garcia WPtel: [address] [place] [phone] (30 min) Complex 05/27/2016 Patient Education: Patient Medication Summary Completed 05/27/2016 Patient Education: Obesity Completed 05/27/2016 Visit Plan: Hypertension - well con trolled - continue with current medications, continue with no added salt diet. Pt has been encouraged to exercise daily. The pt has been advised to call the office if there are any acute concerns about change in blood pressure readings at home. Bipolar Mood disorder -symptoms improved with current medications-no changes-follow up in 1 month, sooner if needed 04/29/2016 Appointment: Michelle Garcia WPtel: [address] [place], [place] [phone] (30 min) Complex 04/29/2016 Patient Education: Patient Medication Summary Completed 04/29/2016 Patient Education: Obesity Completed 04/29/2016 Patient Education: Hypertension Completed 04/29/2016 Visit Plan: Bipolar Mood disorder - symptoms improved with switch to seroquel-make appt for counseling-no change in medications-call me if symptoms ANY or new symptoms develop. Follow up in the office in 2 weeks, sooner if needed. Patient verbalized understanding of plan. 04/02/2016 Appointment: Michelle Garcia WPtel: [address] [place], [place] [phone] (30 min) Complex 04/02/2016 Patient Education: Patient Medication Summary Completed 04/02/2016 Patient Education: Obesity Completed 04/02/2016 Visit Plan: Bipolar Mood disorder - it appears that the patient may be having worsening manic episodes, and paranoia - discussed with Dr Littlejohn-recommend inpatient treatment-patient declines at this time-will inc rease effexor to 75mg daily and recommend patient [...] at home. 03/18/2016 Appointment: Michelle Garcia WPtel: [address] [place], [place] [phone] (30 min) Complex 03/18/2016 Patient Education: Patient Medication Summary Completed 03/18/2016 Patient Education: Obesity Completed 03/18/2016 Patient Education: Hypertension Completed 03/18/2016 Appointment: Injection 02/20/2016 Patient Education: Patient Medication Summary Completed 02/20/2016 Visit Plan: Pharyngitis-Discussed n atural and expected course of this diagnosis and need to alert me if symtpoms do not follow expected course, or if any worse. Recommended salt water gargles as needed for pain. Ty lenol/motrin as needed for fever/discomfort. Allergies - chronic [...] spray. Kenalog injection today in the office 01/26/2016 Visit Plan: Pharyngitis-Discussed n atural and expected course of this diagnosis and need to alert me if symtpoms do not follow expected course, or if any worse. Recommended salt water gargles as needed for pain. Ty lenol/motrin as needed for fever/discomfort. Allergies - chronic [...] spray. Kenalog injection today in the office 01/26/2016 Appointment: Michelle Garcia WPtel: [phone] (30 min) [facility] 01/26/2016 Patient Education: Patient Medication Summary Completed 01/26/2016 Patient Education: Patient Medication Summary Completed 01/01/2016 Patient Education: Obesity Completed 01/01/2016 Visit Plan: Hypertension - well con trolled - continue with current medications, continue with [...] for TOPS is 190# Urinary frequency-check UA 12/25/2015 Visit Plan: Hypertension - well con trolled - continue with current medications, continue with [...] for TOPS is 190# Urinary frequency-check UA 12/25/2015 Patient Education: Patient Medication Summary Completed 12/25/2015 Patient Education: Obesity Completed 12/25/2015 Care Plan: BMI Above normal followup SUDHEER F-MGMT EDUC & TRAIN 1 PT Pending 12/25/2015 Visit Plan: Esophageal Reflux - the patient has been counseled against excessive intake of [...] current medications. 12/08/2015 Appointment: Michelle Garcia WPtel: [phone] (15 min) Moderate 12/08/2015 Patient Education: Patient Medication Summary Completed 12/08/2015 Visit Plan: Bipolar-symptoms contro lled-check depakote level today Hypertension - well controlled [...] nasal steroid allergy spray. Dysuria-UA negative-monitor symptoms 09/23/2015 Appointment: (30 min) Complex 09/23/2015 Patient Education: Patient Medication Summary Completed 09/23/2015 Appointment: Lab Draw 07/23/2015 Appointment: Lab Draw 07/07/2015 Patient Education: Patient Medication Summary Completed 07/07/2015 Patient Education: Patient Medication Summary Completed 06/24/2015 Visit Plan: Hypertension - well con trolled - continue with current medications, continue with no added salt diet. Pt has been encouraged to exercise daily. The pt has been advised to call the office if there are any acute concerns about change in blood pressure readings at home. Bipolar depression-symptoms stable-seeing Dr Valencia for outpatient treatment 06/19/2015 Appointment: (30 min) Complex 06/19/2015 Patient Education: Patient Medication Summary Completed 06/19/2015 Patient Education: Hypertension Completed 06/19/2015 Visit Plan: Hypertension - well con trolled - continue with current medications, continue with [...] exposure. No change in current medications. Rash-resolved 05/19/2015 Appointment: (30 min) Complex 05/19/2015 Patient Education: Patient Medication Summary Completed 05/19/2015 Patient Education: Hypertension Completed 05/19/2015 Appointment: (15 min) Moderate 04/29/2015 Visit Plan: Rash-uncertain etiology -Dr Littlejohn in to evaluate patient-plan to hold atorvastatin, use hydroxyzine as needed for itching. Instructed patient to call if symptoms do not improve, if any worse or new symptoms develop. Follow up in the office in 2 weeks, sooner if needed. Patient verbalized understanding of plan. 04/28/2015 Appointment: Michelle Garcia WPtel: [address] [place] [phone] (15 min) Moderate 04/28/2015 Patient Education: Patient Medication Summary Completed 04/28/2015 Visit Plan: Hypertension - well con trolled - continue with current medications, continue with [...] Education: Hypertension Completed 03/18/2015 Visit Plan: Seborrheic keratosis-no t inflamed today in the office-if becomes irritated or inflamed, will plan for removal. Patient verbalized understanding of plan. 02/27/2015 Appointment: (15 min) Moderate 02/27/2015 Patient Education: Patient Medication Summary Completed 02/27/2015 Visit Plan: Hypothyroidism - pt wit h chronic hypothyroidism, continue with current medication, will monitor pt to signs or symptoms of lack of adequate supplementation. Pt is to continue with current dose of medication unless directed otherwise. Check labs at regular intervals wither q 3 months or q 6 months based on previous levels of control. Bipolar, depression-patients sees Dr Valencia-recent inpatient stay at [facility]-now on latuda and doing well-no changes at this time. Influenza vaccine today in the office 02/13/2015 Appointment: (30 min) Complex 02/13/2015 Patient Education: Patient Medication Summary Completed 02/13/2015 Visit Plan: Muscle strain/back pain - Biofreeze applied to shoulders and back muscles in [...] Completed 11/18/2014 Visit Plan: Dog bite- Start antibio tic today. RX sent to pt's pharmacy. Pt has been instructed to take probiotic while on antibiotic. Tetanus shot given today in office. Pt instructed to call or return to clinic if symptoms worsen. Verbalizes understanding. Dysuria- UA negative. Increase water intake. Return if symptoms worsen or persist. 10/23/2014 Visit Plan: Dog bite- Start antibio tic today. RX sent to pt's pharmacy. Pt [...] 10/08/2014 Visit Plan: Medicare Exam - today w e discussed the patients past history, immunizations, preventative [...] Patient Education: Hypertension Completed 09/25/2014 Visit Plan: Lngfvclmnrw-iwlyqidsk-n heck labs-increase po fluids-monitor blood pressure and pulse-return Tuesday for blood pressure check Hypothyroidism - pt with chronic hypothyroidism, continue with current m edication, will monitor pt to signs or symptoms of lack of adequate supplementation. Pt is to continue with current dose of medication unless directed otherwise. Check labs at regular intervals wither q 3 months or q 6 months based on previous levels of control. Dysuria-check UA today 09/23/2014 Appointment: Follow up 09/23/2014 Patient Education: Patient Medication Summary Completed 09/23/2014 Care Plan: COMPLETE CBC AUTOMATED LOINC : 13582-7 Ordered 09/23/2014 Care Plan: URINALYSIS NONAUTO W/O SCOPE LOINC : 60620-7 Ordered 09/23/2014 Visit Plan: URI - Pt advised to inc rease fluids, vitamin C. Discussed natural and expected [...] Completed 07/08/2014 Appointment: Jodie Littlejohn WPtel: [id number] [place] Lab Draw 06/03/2014 Patient Education: Patient Medication Summary Completed 06/03/2014 Visit Plan: Hypothyroidism - pt wit h chronic hypothyroidism, continue with current medication, will [...] home. 05/31/2014 Appointment: Jodie Littlejohn WPtel: [id number] [place] Follow up 05/31/2014 Patient Education: Patient Medication Summary Completed 05/31/2014 Patient Education: Hypertension Completed 05/31/2014 Appointment: Jodie Littlejohn WPtel: [address] [place], [place] [phone] Follow up 05/07/2014 Visit Plan: hold lipitor x 2 weeks check labs at [facility] lab ibuprofen 400mg twice daily x 7 days DRINK LOTS of water - at least 16 ounces with each dose of ibuprofen (motrin) you need to get a deep tissue massage. heat to neck and lower back tiger balm for your neck and back muscles. 04/18/2014 Appointment: Jodie Littlejohn WPtel: [facility]5 [facility] Follow up 04/18/2014 Patient Education: Patient Medication Summary Completed 04/18/2014 Care Plan: ASSAY OF CK (CPK) Ordered 04/18/2014 Care Plan: ASSAY DIPROPYLACETIC ACID Ordered 04/18/2014 Care Plan: ASSAY OF MYOGLOBIN Ordered 04/18/2014 Care Plan: COMPLETE CBC AUTOMATED LOINC : 34015-0 Ordered 04/18/2014 Visit Plan: Back pain - recommended heat, tiger balm to upper back, stretching [...] not healing. 03/05/2014 Appointment: Jodie Littlejohn WPtel: [id number] [place] Follow up 03/05/2014 Patient Education: Patient Medication Summary Completed 03/05/2014 Visit Plan: Hypertension - well con trolled - continue with current medications, continue with no added salt diet. Pt has been encouraged to exercise daily. The pt has been advised to call the office if there are any acute concerns about change in blood pressure readings at home. 01/29/2014 Appointment: Jodie Littlejohn WPtel: [address] [place], [place] [phone] [place] Follow up 01/29/2014 Patient Education: Patient Medication Summary Completed 01/29/2014 Patient Education: Hypertension Completed 01/29/2014 Patient Education: Patient Medication Summary Completed 11/12/2013 Appointment: Lab Draw 11/09/2013 Visit Plan: Hypertension - well con trolled - continue with current medications, continue with [...] pt starts to have worsening of anxiety/paranoia. 10/23/2013 Appointment: Jodie Littlejohn WPtel: [facility] Follow up 10/23/2013 Patient Education: Patient Medication Summary Completed 10/23/2013 Patient Education: Hypertension Completed 10/23/2013 Appointment: Jodie Littlejohn WPtel: [facility] [place] Follow up 10/16/2013 Visit Plan: Rash-[facility]-RX for diflucan and nystatin-triamcinolone cream to patients pharmacy and isntructed on use. We will call Tuesday with culture results-let us know if the rash is not better. Call if rash worsens, or does not resolve. Patient verbalized understanding of plan. 10/11/2013 Patient Education: Patient Medication Summary Completed 10/11/2013 Visit Plan: Edema - pt has been adv ised to elevate legs to prevent dependent edema, compression has been recommended to help to naturally decrease peripheral edema. Diuretic use has been discussed and pt has been i nstructed in appropriate use of such medication as necessary to further attempt to reduce peripheral edema. Pt to use spironolactone 25mg daily and monitor symptoms. 09/17/2013 Appointment: Jodie Littlejohn WPtel: [phone] [id number] Follow up 09/17/2013 Patient Education: Patient Medication Summary Completed 09/17/2013 Visit Plan: Edema - pt has been adv ised to elevate legs to prevent dependent edema, compression has been recommended to help to naturally decrease peripheral edema. Diuretic use has been discussed and pt has been i nstructed in appropriate use of such medication as necessary to further attempt to reduce peripheral edema. TAKE LASIX AND POTASSIUM DAILY X 3 DAYS AND CALL WITH UPDATE ON SYMPTOMS. Left ankle pain-much improved-use cooper wrap during the day for compression-rest and elevated leg. 08/27/2013 Appointment: Michelle Garcia WPtel: [facility]6 [phone] Other 08/27/2013 Patient Education: Patient Medication Summary Completed 08/27/2013 Appointment: Jodie Littlejohn WPtel: [address] [place], [place] [phone] Hospital follow up 08/22/2013 Visit Plan: Bipolar Mood disorder - pt states that she feels better [...] of control. 08/20/2013 Appointment: Jodie Littlejohn WPtel: [id number] [place] Other 08/20/2013 Patient Education: Patient Medication Summary Completed 08/20/2013 Appointment: Jodie Littlejohn WPtel: [facility]5 [facility] Follow up 08/07/2013 Visit Plan: Bipolar Mood Disorder w ith Manic and Depression symptoms - pt reports that she has not been sleeping well, but since change in her medications she feels as if she is doing better. She reports that she will be seeing the father separate from her so that she can get counseling. She reports that she will not be seeing the physician in [place] any more - had actually stopped seeing the physician in [place] as of 2-3 weeks ago. She will be seeing Dr. Cabrera in [place]. 07/10/2013 Appointment: Jodie Littlejohn WPtel: [facility] Follow up 07/10/2013 Patient Education: Patient Medication Summary Completed 07/10/2013 Visit Plan: DM-diabetes and diet ed ucation discussed in detal with patient today in [...] spray. Kenalog injection today in the office. 03/20/2013 Appointment: Michelle Garcia WPtel: [phone] [place] [address] Other 03/20/2013 Patient Education: Patient Medication Summary Completed 03/20/2013 Patient Education: .Amazing charts Diabe tic meal planning guide Completed 03/20/2013 Visit Plan: Hypothyroidism - pt wit h chronic hypothyroidism, continue with current medication, will [...] check hgba1c. 03/07/2013 Appointment: Jodie Littlejohn WPtel: [facility] [place] Follow up 03/07/2013 Patient Education: Patient Medication Summary Completed 03/07/2013 Appointment: Michelle Garcia WPtel: [facility]5 [phone] Lab Draw 03/01/2013 Patient Education: Patient Medication Summary Completed 03/01/2013 Visit Plan: Hypothyroidism - pt wit h chronic hypothyroidism, continue with current medication, will [...] current medications. 01/22/2013 Appointment: Jodie Littlejohn WPtel: [facility]5 [place] [phone] Follow up 01/22/2013 Patient Education: Patient Medication Summary Completed 01/22/2013 Patient Education: Patient Medication Summary Completed 09/04/2012 Visit Plan: URI - Pt advised to inc rease fluids, vitamin C. Discussed natural and expected [...] medication. Kenalog injection today in the office. 08/22/2012 Appointment: Michelle Garcia WPtel: [phone] [facility] 08/22/2012 Patient Education: Patient Medication Summary Completed 08/22/2012 Visit Plan: Hypertension - well con trolled - continue with current medications, continue with [...] medications. 08/14/2012 Appointment: Jodie Littlejohn WPtel: [phone] Follow up 08/14/2012 Patient Education: Patient Medication Summary Completed 08/14/2012 Patient Education: Hypertension Completed 08/14/2012 Visit Plan: URI - Pt advised to inc rease fluids, vitamin C. Discussed natural and expected [...] medication. Kenalog injection today in the office. 05/22/2012 Patient Education: Patient Medication Summary Completed 05/22/2012 Visit Plan: Hypertension - josiane macdonald - continue with current medications, continue with no added salt diet. Pt has been encouraged to exercise daily. The pt has been advised to call the office if there are any acute concerns about change in blood pressure readings at home. 04/17/2012 Appointment: Jodie Littlejohn WPtel: [phone] [place] Other 04/17/2012 Patient Education: Hypertension Completed 04/17/2012 Patient Education: Patient Medication Summary Completed 04/17/2012 [id number] [place] [facility] 02/23/2012 Patient Education: Patient Medication Summary Completed 02/23/2012 Visit Plan: Hypothyroidism - pt wit h chronic hypothyroidism, continue with current medication, will [...] to hany. 12/01/2011 Appointment: Jodie Littlejohn WPtel: [address] [place], [place] [id number] Other 12/01/2011 Patient Education: Patient Medication Summary Completed 12/01/2011 Visit Plan: Hypothyroidism - pt wit h chronic hypothyroidism, continue with current medication, will [...] current medications. 08/11/2011 Appointment: Jodie Littlejohn WPtel: [address] [place] [address] Other 08/11/2011 Appointment: Jodie Littlejohn WPtel: [address] [place] [address] Other 08/11/2011 Patient Education: Patient Medication Summary Completed 08/11/2011 Visit Plan: Mastodynia improved - c ontinue with no underwire bras and call if [...] a week restart if the symptoms return. 06/01/2011 Appointment: Jodie Littlejohn WPtel: [address] [place] [address] Other 06/01/2011 Patient Education: Patient Medication Summary Completed 06/01/2011 Visit Plan: Breast pain - ordered m ammogram and ultrasound. STOP WEARING UNDERWIRE BRAS. Depression [...] months based on previous levels of control. 05/18/2011 Appointment: Jodie Littlejohn WPtel: [phone] [id number] Other 05/18/2011 Patient Education: Patient Medication Summary Completed 05/18/2011 Appointment: Jodie Littlejohn WPtel: [phone] [id number] Other 03/09/2011 Appointment: Jodie Littlejohn WPtel: [phone] [facility] [place] Injection 01/28/2011 Referral: Angie Adorno Referral Relationship Instructions Comment mammogram prevnar 13 . Medicare [...] assist-home health to continue working with her. Hqtoozvtr-hboumsc-qfkegciq daily anti histamine . Dizziness-headache -vision changes-recommend [...] sent to patient's pharmacy. . Hypothyroidism - pt with chronic hypothyroidism, [...] to clinic if symptoms persist or worsen. Cesar - You need to let your family [...] previous levels of control. Bipolar-recent hospitalization at [facility] with pt residing at [facility] - continue with current management. Defer Bipolar [...] YOUR BLOOD PRESSURE AND YOUR MACHINE . Binnuejamsp-xdkqszejb-intfb labs-incre ase po fluids-monitor blood pressure and [...] depression-patients sees Dr Valencia-recent inpatient stay at [facility]-now on latuda and doing well-no changes [...] wee ks check labs at [facility] ibuprofen 400mg twice daily x 7 days DRINK LOTS of water - at least 16 ounces with each dose of ibuprofen (motrin) you need to get a deep tissue massage. heat to neck and lower back tiger balm for your neck and back muscles. . hold lipitor x 2 weeks check labs at [facility] ibuprofen 400mg twice daily x 7 [...] will not be seeing the physician in [place] any more - had actually stopped seeing the physician in [place] as of 2-3 weeks ago. She will be seeing Dr. Cabrera in [place]. . Back pain - recomm ended heat, [...]
--- OUTSIDE RECORDS SUMMARY | 2019-11-07 17:29 | XMS REPORT ---
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 Active 99485986 Problem Delusional disorder F22 Active 94333218 Problem Adjustment disorder with anxious mood F43.22 Active [id number] ALLERGIES No Information ENCOUNTERS Encounter Location Date Diagnosis [place] [id number] [address] [facility] [id number] [address] [place] [id number] Jan, [place] [address] [place] [id number] [address] [place] [phone] Nov, Major depressive disorder, r ecurrent episode, 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 [place] [address] [address] [facility] [id number] [address] [place] [id number] Oct, Major depressive disorder, r ecurrent episode, 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 ; Delusional disorder F22 and RAD (generalized anxiety disorder) F41.1 [facility] [address] [facility] [id number] [address] [place] [phone] September, Major depressive disorder, r ecurrent episode, 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 [facility] [address] [facility] [id number] [address] [place] [address] Aug, Major depressive disorder, r ecurrent episode, 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 [facility] [address] [id number] [address] [place] [address] Aug, Major depressive disorder, r ecurrent episode, 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 ; Delusional disorder F22 and RAD (generalized anxiety disorder) F41.1 [facility] [address] [id number] [address] [place] [phone] Jul, Major depressive disorder, r ecurrent episode, 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 [facility] [address] [id number] [address] [place] [phone] Jul, Major depressive disorder, r ecurrent episode, unspecified F33.9 [facility] [address] [id number] [address] [place] [address] Jun, Major depressive disorder, r ecurrent episode, 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 [facility] [address] [id number] [address] [place] [address] May, Major depressive disorder, r ecurrent episode, 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 ; Delusional disorder F22 and RAD (generalized anxiety disorder) F41.1 [facility] [address] [id number] [address] [place] [address] May, [facility] [address] [id number] [address] [place] [id number] May, Major depressive disorder, r ecurrent episode, 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 [facility] [address] [id number] [address] [place] [id number] May, Major depressive disorder, r ecurrent episode, 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 ; Adjustment disorder with anxious mood F43.22 and Delusional disorder F22 [facility] [address] [id number] [address] [place] [address] Mar, [facility] [address] [facility] [id number] [address] [place] [address] Mar, Major depressive disorder, r ecurrent episode, 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 [facility] [address] [facility] [id number] [address] [place] [address] Mar, Major depressive disorder, r ecurrent episode, 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 ; Adjustment disorder with anxious mood F43.22 and Delusional disorder F22 [facility] [address] [facility] [id number] [address] [place] [phone] Mar, Major depressive disorder, r ecurrent episode, 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 [facility] [address] [facility] [id number] [address] [place] [id number] Feb, Major depressive disorder, r ecurrent episode, 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 [facility] [address] [facility] [id number] [address] [place] [address] Feb, Major depressive disorder, r ecurrent episode, 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 ; Adjustment disorder with anxious mood F43.22 and Delusional disorder F22 [facility] [address] [facility] [id number] [address] [place] [phone] Jan, Major depressive disorder, r ecurrent episode, 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 [facility] [address] [facility] [id number] [address] [place] [address] Jan, Major depressive disorder, r ecurrent episode, 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 [facility] [address] [facility] [id number] [address] [place] [address] Jan, Major depressive disorder, r ecurrent episode, 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 [facility] [address] [facility] [id number] [address] [place] [address] Dec, Major depressive disorder, r ecurrent episode, 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 [facility] [address] [id number] [address] [place] [address] Dec, Major depressive disorder, r ecurrent episode, 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 ; Adjustment disorder with anxious mood F43.22 and Delusional disorder F22 [facility] [address] [id number] [address] [place] [address] Dec, Major depressive disorder, r ecurrent episode, 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 [facility] [address] [id number] [address] [place] [address] Dec, [address] [id number] [address] Dec, [facility] [address] [id number] [address] [place] [address] Dec, Major depressive disorder, r ecurrent episode, 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 [facility] [address] [id number] [address] [place] [address] Nov, Major depressive disorder, r ecurrent episode, 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 [facility] [address] [id number] [address] [place] [address] Nov, Major depressive disorder, r ecurrent episode, 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 [facility] [address] [id number] [address] [place] [address] Nov, Major depressive disorder, r ecurrent episode, 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 and Adjustment disorder with anxious mood F43.22 [facility] [address] [id number] [address] [place] [address] September, Major depressive disorder, r ecurrent episode, 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 [facility] [address] [id number] [address] [place] [address] Aug, Major depressive disorder, r ecurrent episode, 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 [facility] [address] [id number] [address] [place] [address] Jul, Major depressive disorder, r ecurrent episode, 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 [facility] [address] [id number] [address] [place] [address] Jul, [facility] [address] [id number] [address] [place] [address] Jun, Major depressive disorder, r ecurrent episode, 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 and Other half-way (current) drug therapy Z79.899 [facility] [address] [id number] [address] [place] [address] Jun, [facility] [address] [id number] [address] [place] [address] May, Major depressive disorder, r ecurrent episode, 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 [facility] [address] [id number] [address] [place] [address] Mar, [facility] [address] [id number] [address] [place] [address] Mar, [facility] [address] [id number] [address] [place] [id number] Mar, [facility] [address] [id number] [address] [place] [phone] Mar, Major depressive disorder, r ecurrent episode, 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 [facility] [address] [id number] [address] [place] [address] Feb, [facility] [address] [id number] [address] [place] [address] Feb, [facility] [address] [id number] [address] [place] [address] Feb, [facility] [address] [id number] [address] [place] [id number] Jan, [facility] [address] [id number] [address] [place] [address] Jan, Major depressive disorder, r ecurrent episode, 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 [facility] [address] [id number] [address] [place] [address] Jan, [facility] [address] [id number] [address] [place] [id number] Oct, Major depressive disorder, r ecurrent episode, 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 [facility] [address] [id number] [address] [place] [id number] September, [facility] [address] [id number] [address] [place] [address] September, [facility] [address] [id number] [address] [place] [id number] Aug, Major depressive disorder, r ecurrent episode, 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 PLAN OF CARE Activity Details Follow Up 4 Weeks Reason:depression VITAL SIGNS MEDICATIONS Unknown Medications RESULTS No Results PROCEDURES Procedure Date Ordered Result Body Site [facility] VISIT MENTAL HEALTH ESTAB PT September 07, 2017 Psychotherapy, patient &/family, 30 minutes, established pat ient September 07, 2017 INSTRUCTIONS MEDICATIONS ADMINISTERED No Known Medications [...] due to a fall 09/2016 Hospitalization History [facility] health 03/21/17--
--- OUTSIDE RECORDS SUMMARY | 2019-11-07 17:29 | XMS REPORT ---
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 Active 37951580 Problem Delusional disorder F22 Active 96736409 Problem Adjustment disorder with anxious mood F43.22 Active [id number] ALLERGIES No Information ENCOUNTERS Encounter Location Date Diagnosis [place] [id number] [place] [id number] Nov, Major depressive disorder, r ecurrent episode, 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 [place] [address] [address] [place] [id number] [place] [address] Oct, Major depressive disorder, r ecurrent episode, 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 ; Delusional disorder F22 and RAD (generalized anxiety disorder) F41.1 [place] [address] [place] [id number] [place] [address] September, Major depressive disorder, r ecurrent episode, 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 [place] [address] [address] [facility] [id number] [address] [place] [address] Aug, Major depressive disorder, r ecurrent episode, 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 [place] [address] [address] [place] [id number] [place] [address] Aug, Major depressive disorder, r ecurrent episode, 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 ; Delusional disorder F22 and RAD (generalized anxiety disorder) F41.1 [facility] [address] [id number] [address] [place] [address] Jul, Major depressive disorder, r ecurrent episode, 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 [facility] [address] [id number] [address] [place] [address] Jul, Major depressive disorder, r ecurrent episode, unspecified F33.9 [facility] [address] [id number] [address] [place] [address] Jun, Major depressive disorder, r ecurrent episode, 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 [facility] [address] [id number] [address] [place] [address] May, Major depressive disorder, r ecurrent episode, 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 ; Delusional disorder F22 and RAD (generalized anxiety disorder) F41.1 [facility] [address] [id number] [address] [place] [address] May, [facility] [address] [id number] [address] [place] [address] May, Major depressive disorder, r ecurrent episode, 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 [facility] [address] [id number] [address] [place] [address] May, Major depressive disorder, r ecurrent episode, 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 ; Adjustment disorder with anxious mood F43.22 and Delusional disorder F22 [facility] [address] [id number] [address] [place] [address] Mar, [facility] [address] [id number] [address] [place] [address] Mar, Major depressive disorder, r ecurrent episode, 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 [facility] [address] [id number] [address] [place] [address] Mar, Major depressive disorder, r ecurrent episode, 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 ; Adjustment disorder with anxious mood F43.22 and Delusional disorder F22 [facility] [address] [id number] [address] [place] [address] Mar, Major depressive disorder, r ecurrent episode, 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 [facility] [address] [id number] [address] [place] [address] Feb, Major depressive disorder, r ecurrent episode, 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 [facility] [address] [id number] [address] [place] [address] Feb, Major depressive disorder, r ecurrent episode, 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 ; Adjustment disorder with anxious mood F43.22 and Delusional disorder F22 [facility] [address] [id number] [address] [place] [address] Jan, Major depressive disorder, r ecurrent episode, 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 [facility] [address] [id number] [address] [place] [address] Jan, Major depressive disorder, r ecurrent episode, 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 [facility] [address] [id number] [address] [place] [address] Jan, Major depressive disorder, r ecurrent episode, 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 [facility] [address] [id number] [address] [place] [address] Dec, Major depressive disorder, r ecurrent episode, 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 [facility] [address] [id number] [address] [place] [address] Dec, Major depressive disorder, r ecurrent episode, 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 ; Adjustment disorder with anxious mood F43.22 and Delusional disorder F22 [facility] [address] [id number] [address] [place] [address] Dec, Major depressive disorder, r ecurrent episode, 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 [facility] [address] [id number] [address] [place] [address] Dec, [facility] [id number] [place] [phone] Dec, [facility] [address] [id number] [address] [place] [address] Dec, Major depressive disorder, r ecurrent episode, 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 [facility] [address] [facility] [id number] [address] [place] [address] Nov, Major depressive disorder, r ecurrent episode, 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 [facility] [address] [id number] [address] [place] [address] Nov, Major depressive disorder, r ecurrent episode, 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 [facility] [address] [id number] [address] [place] [address] Nov, Major depressive disorder, r ecurrent episode, 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 and Adjustment disorder with anxious mood F43.22 [facility] [address] [id number] [address] [place] [address] September, Major depressive disorder, r ecurrent episode, 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 [facility] [address] [id number] [address] [place] [address] Aug, Major depressive disorder, r ecurrent episode, 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 [facility] [address] [id number] [address] [place] [address] Jul, Major depressive disorder, r ecurrent episode, 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 [facility] [address] [id number] [address] [place] [address] Jul, [facility] [address] [id number] [address] [place] [address] Jun, Major depressive disorder, r ecurrent episode, 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 and Other longterm (current) drug therapy Z79.899 [facility] [address] [id number] [address] [place] [address] Jun, [facility] [address] [id number] [address] [place] [address] May, Major depressive disorder, r ecurrent episode, 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 [facility] [address] [id number] [address] [place] [address] Mar, [facility] [address] [id number] [address] [place] [address] Mar, [facility] [address] [id number] [address] [place] [address] Mar, [facility] [address] [id number] [address] [place] [address] Mar, Major depressive disorder, r ecurrent episode, 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 [facility] [address] [id number] [address] [place] [address] Feb, [facility] [address] [id number] [address] [place] [address] Feb, [facility] [address] [id number] [address] [place] [address] Feb, [facility] [address] [facility] [id number] [address] [place] [address] Jan, [facility] [address] [id number] [address] [place] [address] Jan, Major depressive disorder, r ecurrent episode, 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 [facility] [address] [id number] [address] [place] [phone] Jan, [facility] [address] [facility] [id number] [address] [place] [address] Oct, Major depressive disorder, r ecurrent episode, 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 [facility] [address] [id number] [address] [place] [address] September, [facility] [address] [facility] [id number] [address] [place] [address] September, [facility] [address] [facility] [id number] [address] [place] [address] Aug, Major depressive disorder, r ecurrent episode, 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 [facility] [address] [facility] [id number] [address] [place] [address] Jul, Recur major depre, part emi s F33.41 IMMUNIZATIONS No Known Immunizations SOCIAL HISTORY Never Assessed REASON FOR VISIT f/u PLAN OF CARE Activity Details Follow Up prn Reason: VITAL SIGNS MEDICATIONS Unknown Medications RESULTS No Results PROCEDURES Procedure Date Ordered Result Body Site [facility] VISIT MENTAL HEALTH ESTAB PT November 24, 2017 Psychotherapy, patient &/family, 30 minutes, established pat ient November 24, 2017 INSTRUCTIONS MEDICATIONS ADMINISTERED No Known Medications [...] to a fall 09/2016 Hospitalization History [facility] 03/21/17-
--- OUTSIDE RECORDS SUMMARY | 2019-11-07 17:29 | XMS REPORT ---
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 Active 61635952 Problem Delusional disorder F22 Active 05733368 Problem Adjustment disorder with anxious mood F43.22 Active 11952547 ALLERGIES No Information ENCOUNTERS Encounter Location Date Diagnosis [place] [address] [address] [facility] [id number] [address] [place] [phone] Jan, [place] [address] [address] [place] [id number] [address] [place] [phone] Nov, Major depressive disorder, r ecurrent episode, 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 [place] [address] [address] [facility] [id number] [address] [place] [phone] Oct, Major depressive disorder, r ecurrent episode, 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 ; Delusional disorder F22 and RAD (generalized anxiety disorder) F41.1 [facility] [place] [address] [facility] [id number] [address] [place] [phone] September, Major depressive disorder, r ecurrent episode, 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 [facility] [place] [address] [facility] [id number] [address] [place] [phone] Aug, Major depressive disorder, r ecurrent episode, 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 [facility] [place] [address] [id number] [address] [place] [phone] Aug, Major depressive disorder, r ecurrent episode, 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 ; Delusional disorder F22 and RAD (generalized anxiety disorder) F41.1 [facility] [place] [address] [id number] [address] [place] [phone] Jul, Major depressive disorder, r ecurrent episode, 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 [facility] [place] [address] [id number] [address] [place] [phone] Jul, Major depressive disorder, r ecurrent episode, unspecified F33.9 [facility] [place] [address] [id number] [address] [place] [phone] Jun, Major depressive disorder, r ecurrent episode, 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 [facility] [place] [address] [id number] [address] [place] [phone] May, Major depressive disorder, r ecurrent episode, 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 ; Delusional disorder F22 and RAD (generalized anxiety disorder) F41.1 [facility] [place] [address] [id number] [address] [place] [phone] May, [facility] [place] [address] [id number] [address] [place] [phone] May, Major depressive disorder, r ecurrent episode, 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 [facility] [place] [address] [id number] [address] [place] [phone] May, Major depressive disorder, r ecurrent episode, 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 ; Adjustment disorder with anxious mood F43.22 and Delusional disorder F22 [facility] [place] [address] [id number] [address] [place] [phone] Mar, [facility] [place] [address] [facility] [id number] [address] [place] [phone] Mar, Major depressive disorder, r ecurrent episode, 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 [facility] [place] [address] [facility] [id number] [address] [place] [phone] Mar, Major depressive disorder, r ecurrent episode, 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 ; Adjustment disorder with anxious mood F43.22 and Delusional disorder F22 [facility] [place] [address] [facility] [id number] [address] [place] [phone] Mar, Major depressive disorder, r ecurrent episode, 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 [facility] [place] [address] [facility] [id number] [address] [place] [phone] Feb, Major depressive disorder, r ecurrent episode, 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 [facility] [place] [address] [facility] [id number] [address] [place] [phone] Feb, Major depressive disorder, r ecurrent episode, 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 ; Adjustment disorder with anxious mood F43.22 and Delusional disorder F22 [facility] [place] [address] [facility] [id number] [address] [place] [phone] Jan, Major depressive disorder, r ecurrent episode, 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 [facility] [place] [address] [facility] [id number] [address] [place] [phone] Jan, Major depressive disorder, r ecurrent episode, 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 [facility] [place] [address] [facility] [id number] [address] [place] [phone] Jan, Major depressive disorder, r ecurrent episode, 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 [facility] [place] [address] [facility] [id number] [address] [place] [phone] Dec, Major depressive disorder, r ecurrent episode, 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 [facility] [place] [address] [id number] [address] [place] [phone] Dec, Major depressive disorder, r ecurrent episode, 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 ; Adjustment disorder with anxious mood F43.22 and Delusional disorder F22 [facility] [place] [address] [id number] [address] [place] [phone] Dec, Major depressive disorder, r ecurrent episode, 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 [facility] [place] [address] [id number] [address] [place] [phone] Dec, [address] [id number] [address] Dec, [facility] [place] [address] [id number] [address] [place] [phone] Dec, Major depressive disorder, r ecurrent episode, 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 [facility] [place] [address] [id number] [address] [place] [phone] Nov, Major depressive disorder, r ecurrent episode, 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 [facility] [place] [address] [id number] [address] [place] [phone] Nov, Major depressive disorder, r ecurrent episode, 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 [facility] [place] [address] [id number] [address] [place] [phone] Nov, Major depressive disorder, r ecurrent episode, 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 and Adjustment disorder with anxious mood F43.22 [facility] [place] [address] [id number] [address] [place] [phone] September, Major depressive disorder, r ecurrent episode, 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 [facility] [place] [address] [id number] [address] [place] [address] Aug, Major depressive disorder, r ecurrent episode, 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 [facility] [place] [address] [id number] [address] [place] [phone] Jul, Major depressive disorder, r ecurrent episode, 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 [facility] [place] [address] [id number] [address] [place] [phone] Jul, [facility] [place] [address] [id number] [address] [place] [address] Jun, Major depressive disorder, r ecurrent episode, 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 and Other longterm (current) drug therapy Z79.899 [facility] [place] [address] [id number] [address] [place] [phone] Jun, [facility] [place] [address] [id number] [address] [place] [phone] May, Major depressive disorder, r ecurrent episode, 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 [facility] [place] [address] [id number] [address] [place] [phone] Mar, [facility] [place] [address] [id number] [address] [place] [phone] Mar, [facility] [place] [address] [id number] [address] [place] [phone] Mar, [facility] [place] [address] [id number] [address] [place] [phone] Mar, Major depressive disorder, r ecurrent episode, 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 [facility] [place] [address] [id number] [address] [place] [phone] Feb, [facility] [place] [address] [id number] [address] [place] [phone] Feb, [facility] [place] [address] [id number] [address] [place] [phone] Feb, [facility] [place] [address] [id number] [address] [place] [phone] Jan, [facility] [place] [address] [id number] [address] [place] [phone] Jan, Major depressive disorder, r ecurrent episode, 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 [facility] [place] [address] [id number] [address] [place] [phone] Jan, [facility] [place] [address] [id number] [address] [place] [phone] Oct, Major depressive disorder, r ecurrent episode, 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 [facility] [place] [address] [id number] [address] [place] [phone] September, [facility] [place] [address] [id number] [address] [place] [phone] September, [facility] [place] [address] [id number] [address] [place] [phone] Aug, Major depressive disorder, r ecurrent episode, 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 PLAN OF CARE Activity Details Follow Up 4 Weeks Reason:depression VITAL SIGNS MEDICATIONS Unknown Medications RESULTS No Results PROCEDURES Procedure Date Ordered Result Body Site [facility] VISIT MENTAL HEALTH ESTAB PT August 09, 2017 Psychotherapy, patient &/family, 30 minutes, established pat ient August 09, 2017 INSTRUCTIONS MEDICATIONS ADMINISTERED No Known Medications [...] due to a fall 09/2016 Hospitalization History [facility] health 03/21/17--
--- OUTSIDE RECORDS SUMMARY | 2019-11-07 17:29 | XMS REPORT ---
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 Active 22355738 Problem Delusional disorder F22 Active 98267720 Problem Adjustment disorder with anxious mood F43.22 Active 35451725 ALLERGIES Substance Reaction Event Type Date Status SulfADIAZINE Unknown Drug Allergy Aug, Active Quinine Sulfate Unknown Drug Allergy Aug, Active Neosporin Unknown Drug Allergy Aug, Active Benadryl Unknown Drug Allergy Aug, Active ENCOUNTERS Encounter Location Date Diagnosis [facility] [address] [facility] [id number] [address] [place] [phone] Jan, [facility] [address] [facility] [id number] [address] [place] [phone] Nov, Major depressive disorder, r ecurrent episode, 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 [facility] [address] [facility] [id number] [address] [place] [phone] Oct, Major depressive disorder, r ecurrent episode, 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 ; Delusional disorder F22 and RAD (generalized anxiety disorder) F41.1 [facility] [address] [facility] [id number] [address] [place] [id number] September, Major depressive disorder, r ecurrent episode, 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 [facility] [address] [id number] [address] [place] [id number] Aug, Major depressive disorder, r ecurrent episode, 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 [facility] [address] [id number] [address] [place] [phone] Aug, Major depressive disorder, r ecurrent episode, 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 ; Delusional disorder F22 and RAD (generalized anxiety disorder) F41.1 [facility] [address] [id number] [address] [place] [phone] Jul, Major depressive disorder, r ecurrent episode, 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 [facility] [address] [id number] [address] [place] [id number] Jul, Major depressive disorder, r ecurrent episode, unspecified F33.9 [facility] [address] [id number] [address] [place] [phone] Jun, Major depressive disorder, r ecurrent episode, 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 [facility] [address] [id number] [address] [place] [phone] May, Major depressive disorder, r ecurrent episode, 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 ; Delusional disorder F22 and RAD (generalized anxiety disorder) F41.1 [facility] [address] [id number] [address] [place] [phone] May, [facility] [address] [id number] [address] [place] [phone] May, Major depressive disorder, r ecurrent episode, 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 [facility] [address] [id number] [address] [place] [phone] May, Major depressive disorder, r ecurrent episode, 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 ; Adjustment disorder with anxious mood F43.22 and Delusional disorder F22 [facility] [address] [id number] [address] [place] [phone] Mar, [facility] [address] [id number] [address] [place] [phone] Mar, Major depressive disorder, r ecurrent episode, 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 [facility] [address] [id number] [address] [place] [phone] Mar, Major depressive disorder, r ecurrent episode, 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 ; Adjustment disorder with anxious mood F43.22 and Delusional disorder F22 [facility] [address] [id number] [address] [place] [id number] Mar, Major depressive disorder, r ecurrent episode, 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 [facility] [address] [facility] [id number] [address] [place] [phone] Feb, Major depressive disorder, r ecurrent episode, 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 [facility] [address] [id number] [address] [place] [phone] Feb, Major depressive disorder, r ecurrent episode, 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 ; Adjustment disorder with anxious mood F43.22 and Delusional disorder F22 [facility] [address] [id number] [address] [place] [phone] Jan, Major depressive disorder, r ecurrent episode, 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 [facility] [address] [id number] [address] [place] [phone] Jan, Major depressive disorder, r ecurrent episode, 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 [facility] [address] [facility] [id number] [address] [place] [phone] Jan, Major depressive disorder, r ecurrent episode, 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 [facility] [address] [id number] [address] [place] [phone] Dec, Major depressive disorder, r ecurrent episode, 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 [facility] [address] [id number] [address] [place] [phone] Dec, Major depressive disorder, r ecurrent episode, 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 ; Adjustment disorder with anxious mood F43.22 and Delusional disorder F22 [facility] [address] [id number] [address] [place] [phone] Dec, Major depressive disorder, r ecurrent episode, 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 [facility] [address] [id number] [address] [place] [phone] Dec, [id number] [place] [phone] Dec, [facility] [address] [id number] [address] [place] [id number] Dec, Major depressive disorder, r ecurrent episode, 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 [facility] [address] [id number] [address] [place] [phone] Nov, Major depressive disorder, r ecurrent episode, 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 [facility] [address] [id number] [address] [place] [id number] Nov, Major depressive disorder, r ecurrent episode, 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 [facility] [address] [id number] [address] [place] [phone] Nov, Major depressive disorder, r ecurrent episode, 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 and Adjustment disorder with anxious mood F43.22 [facility] [address] [id number] [address] [place] [id number] September, Major depressive disorder, r ecurrent episode, 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 [facility] [address] [id number] [address] [place] [phone] Aug, Major depressive disorder, r ecurrent episode, 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 [facility] [address] [id number] [address] [place] [phone] Jul, Major depressive disorder, r ecurrent episode, 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 [facility] [address] [id number] [address] [place] [id number] Jul, [facility] [address] [id number] [address] [place] [phone] Jun, Major depressive disorder, r ecurrent episode, 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 and Other remote computer terminal operator (current) drug therapy Z79.899 [facility] [address] [id number] [address] [place] [phone] Jun, [facility] [address] [id number] [address] [place] [phone] May, Major depressive disorder, r ecurrent episode, 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 [facility] [address] [id number] [address] [place] [phone] Mar, [facility] [address] [id number] [address] [place] [phone] Mar, [facility] [address] [id number] [address] [place] [phone] Mar, [facility] [address] [id number] [address] [place] [phone] Mar, Major depressive disorder, r ecurrent episode, 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 [facility] [address] [id number] [address] [place] [phone] Feb, [facility] [address] [id number] [address] [place] [phone] Feb, [facility] [address] [id number] [address] [place] [phone] Feb, [facility] [address] [id number] [address] [place] [phone] Jan, [facility] [address] [id number] [address] [place] [id number] Jan, Major depressive disorder, r ecurrent episode, 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 [facility] [address] [id number] [address] [place] [phone] Jan, [facility] [address] [id number] [address] [place] [phone] Oct, Major depressive disorder, r ecurrent episode, 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 [facility] [address] [id number] [address] [place] [phone] September, [facility] [address] [id number] [address] [place] [phone] September, [facility] [address] [id number] [address] [place] [phone] Aug, Major depressive disorder, r ecurrent episode, 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 [facility] [address] [id number] [address] [place] [id number] Jul, Recur major depre, part emi s F33.41 IMMUNIZATIONS No Known Immunizations SOCIAL HISTORY Never Assessed REASON FOR VISIT SUSAN f/u Ling PLAN OF CARE Activity Details Follow Up 2 Months Reason:SUSAN f/u VITAL SIGNS Height 60 in 2017-08-16 Weight 216.3 lbs 2017-08-16 Heart Rate 84 bpm 2017-08-16 Respiratory Rate 20 2017-08-16 BMI 42.24 kg/m2 2017-08-16 Blood pressure systolic 128 mmHg 2017-08-16 Blood pressure diastolic 68 mmHg 2017-08-16 MEDICATIONS Medication Instructions Dosage Frequency Start Date End Date Duration S jhon Zyprexa 5 mg Orally in the morning and 2 tablets at bedtime 1 tablet Active Levothyroxine Sodium 88 MCG Orally Once a day 1 tablet 24h Active Effexor XR 75 MG Orally Once a day 1 capsule with food 24h Active Lumigan 0.01 % Ophthalmic Once a day 1 drop into affected eye i n the evening 24h Active Lorazepam 0.5 MG Orally daily 1 tablet at bedtime as needed 24h Active Lipitor 20 MG Orally Once a day 1 tablet 24h Active Depakote 250 MG Orally 3 times a day 1 tablet 8h Active Alphagan P 0.15 % Ophthalmic Once a day 1 drop into affected eye 24h Active Omeprazole 20 MG Orally Once a day 2 capsules 24h Active RESULTS No Results PROCEDURES Procedure Date Ordered Result Body Site [facility] VISIT ESTABLISHED PATIENT August 16, 2017 INSTRUCTIONS MEDICATIONS ADMINISTERED No Known Medications [...] to a fall 09/2016 Hospitalization History [facility] 03/21/17-
--- OUTSIDE RECORDS SUMMARY | 2019-11-07 17:29 | XMS REPORT ---
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 Active 70792787 Problem Delusional disorder F22 Active [id number] Problem Adjustment disorder with anxious mood F43.22 Active [id number] ALLERGIES No Information ENCOUNTERS Encounter Location Date Diagnosis [place] [address] [address] [facility] [id number] [address] [place] [id number] Jan, [place] [address] [address] [place] [id number] [address] [place] [phone] Nov, Major depressive disorder, r ecurrent episode, 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 [place] [address] [address] [facility] [id number] [address] [place] [phone] Oct, Major depressive disorder, r ecurrent episode, 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 ; Delusional disorder F22 and RAD (generalized anxiety disorder) F41.1 [facility] [address] [facility] [id number] [address] [place] [id number] September, Major depressive disorder, r ecurrent episode, 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 [facility] [address] [facility] [id number] [address] [place] [id number] Aug, Major depressive disorder, r ecurrent episode, 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 [facility] [address] [id number] [address] [place] [phone] Aug, Major depressive disorder, r ecurrent episode, 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 ; Delusional disorder F22 and RAD (generalized anxiety disorder) F41.1 [facility] [address] [id number] [address] [place] [phone] Jul, Major depressive disorder, r ecurrent episode, 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 [facility] [address] [id number] [address] [place] [id number] Jul, Major depressive disorder, r ecurrent episode, unspecified F33.9 [facility] [address] [id number] [address] [place] [id number] Jun, Major depressive disorder, r ecurrent episode, 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 [facility] [address] [id number] [address] [place] [phone] May, Major depressive disorder, r ecurrent episode, 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 ; Delusional disorder F22 and RAD (generalized anxiety disorder) F41.1 [facility] [address] [id number] [address] [place] [phone] May, [facility] [address] [id number] [address] [place] [phone] May, Major depressive disorder, r ecurrent episode, 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 [facility] [address] [id number] [address] [place] [phone] May, Major depressive disorder, r ecurrent episode, 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 ; Adjustment disorder with anxious mood F43.22 and Delusional disorder F22 [facility] [address] [id number] [address] [place] [phone] Mar, [facility] [address] [facility] [id number] [address] [place] [id number] Mar, Major depressive disorder, r ecurrent episode, 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 [facility] [address] [facility] [id number] [address] [place] [id number] Mar, Major depressive disorder, r ecurrent episode, 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 ; Adjustment disorder with anxious mood F43.22 and Delusional disorder F22 [facility] [address] [facility] [id number] [address] [place] [id number] Mar, Major depressive disorder, r ecurrent episode, 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 [facility] [address] [facility] [id number] [address] [place] [id number] Feb, Major depressive disorder, r ecurrent episode, 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 [facility] [address] [facility] [id number] [address] [place] [phone] Feb, Major depressive disorder, r ecurrent episode, 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 ; Adjustment disorder with anxious mood F43.22 and Delusional disorder F22 [facility] [address] [facility] [id number] [address] [place] [id number] Jan, Major depressive disorder, r ecurrent episode, 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 [facility] [address] [facility] [id number] [address] [place] [id number] Jan, Major depressive disorder, r ecurrent episode, 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 [facility] [address] [facility] [id number] [address] [place] [phone] Jan, Major depressive disorder, r ecurrent episode, 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 [facility] [address] [facility] [id number] [address] [place] [id number] Dec, Major depressive disorder, r ecurrent episode, 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 [facility] [address] [id number] [address] [place] [id number] Dec, Major depressive disorder, r ecurrent episode, 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 ; Adjustment disorder with anxious mood F43.22 and Delusional disorder F22 [facility] [address] [id number] [address] [place] [phone] Dec, Major depressive disorder, r ecurrent episode, 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 [facility] [address] [id number] [address] [place] [id number] Dec, [address] [id number] [address] Dec, [facility] [address] [id number] [address] [place] [id number] Dec, Major depressive disorder, r ecurrent episode, 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 [facility] [address] [id number] [address] [place] [id number] Nov, Major depressive disorder, r ecurrent episode, 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 [facility] [address] [id number] [address] [place] [phone] Nov, Major depressive disorder, r ecurrent episode, 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 [facility] [address] [id number] [address] [place] [id number] Nov, Major depressive disorder, r ecurrent episode, 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 and Adjustment disorder with anxious mood F43.22 [facility] [address] [id number] [address] [place] [id number] September, Major depressive disorder, r ecurrent episode, 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 [facility] [address] [id number] [address] [place] [phone] Aug, Major depressive disorder, r ecurrent episode, 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 [facility] [address] [id number] [address] [place] [phone] Jul, Major depressive disorder, r ecurrent episode, 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 [facility] [address] [id number] [address] [place] [id number] Jul, [facility] [address] [id number] [address] [place] [phone] Jun, Major depressive disorder, r ecurrent episode, 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 and Other prison (current) drug therapy Z79.899 [facility] [address] [id number] [address] [place] [phone] Jun, [facility] [address] [id number] [address] [place] [phone] May, Major depressive disorder, r ecurrent episode, 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 [facility] [address] [id number] [address] [place] [phone] Mar, [facility] [address] [id number] [address] [place] [phone] Mar, [facility] [address] [id number] [address] [place] [id number] Mar, [facility] [address] [id number] [address] [place] [id number] Mar, Major depressive disorder, r ecurrent episode, 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 [facility] [address] [id number] [address] [place] [id number] Feb, [facility] [address] [id number] [address] [place] [phone] Feb, [facility] [address] [id number] [address] [place] [phone] Feb, [facility] [address] [id number] [address] [place] [phone] Jan, [facility] [address] [id number] [address] [place] [phone] Jan, Major depressive disorder, r ecurrent episode, 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 [facility] [address] [id number] [address] [place] [phone] Jan, [facility] [address] [id number] [address] [place] [phone] Oct, Major depressive disorder, r ecurrent episode, 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 [facility] [address] [id number] [address] [place] [phone] September, [facility] [address] [id number] [address] [place] [phone] September, [facility] [address] [id number] [address] [place] [phone] Aug, Major depressive disorder, r ecurrent episode, 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 PLAN OF CARE Activity Details Follow Up 4 Weeks Reason:depression VITAL SIGNS MEDICATIONS Unknown Medications RESULTS No Results PROCEDURES Procedure Date Ordered Result Body Site [facility] VISIT MENTAL HEALTH ESTAB PT September 28, 2017 Psychotherapy, patient &/family, 30 minutes, established patient September 28, 2017 INSTRUCTIONS MEDICATIONS ADMINISTERED No Known Medications [...] due to a fall 09/2016 Hospitalization History [facility] health 03/21/17--
--- OUTSIDE RECORDS SUMMARY | 2019-11-07 17:29 | XMS REPORT ---
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 Active 18876235 Problem Delusional disorder F22 Active 10635062 Problem Adjustment disorder with anxious mood F43.22 Active [id number] ALLERGIES Substance Reaction Event Type Date Status SulfADIAZINE Unknown Drug Allergy Oct, Active Quinine Sulfate Unknown Drug Allergy Oct, Active Neosporin Unknown Drug Allergy Oct, Active Benadryl Unknown Drug Allergy Oct, Active ENCOUNTERS Encounter Location Date Diagnosis [facility] [address] [facility] [id number] [address] [place] [id number] Jan, [facility] [address] [facility] [id number] [address] [place] [id number] Nov, Major depressive disorder, r ecurrent episode, 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 [facility] [address] [facility] [id number] [address] [place] [address] Oct, Major depressive disorder, r ecurrent episode, 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 ; Delusional disorder F22 and RAD (generalized anxiety disorder) F41.1 [facility] [address] [facility] [id number] [address] [place] [id number] September, Major depressive disorder, r ecurrent episode, 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 [facility] [address] [id number] [address] [place] [id number] Aug, Major depressive disorder, r ecurrent episode, 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 [facility] [address] [id number] [address] [place] [id number] Aug, Major depressive disorder, r ecurrent episode, 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 ; Delusional disorder F22 and RAD (generalized anxiety disorder) F41.1 [facility] [address] [id number] [address] [place] [id number] Jul, Major depressive disorder, r ecurrent episode, 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 [facility] [address] [id number] [address] [place] [phone] Jul, Major depressive disorder, r ecurrent episode, unspecified F33.9 [facility] [address] [id number] [address] [place] [id number] Jun, Major depressive disorder, r ecurrent episode, 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 [facility] [address] [id number] [address] [place] [id number] May, Major depressive disorder, r ecurrent episode, 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 ; Delusional disorder F22 and RAD (generalized anxiety disorder) F41.1 [facility] [address] [id number] [address] [place] [id number] May, [facility] [address] [id number] [address] [place] [id number] May, Major depressive disorder, r ecurrent episode, 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 [facility] [address] [id number] [address] [place] [id number] May, Major depressive disorder, r ecurrent episode, 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 ; Adjustment disorder with anxious mood F43.22 and Delusional disorder F22 [facility] [address] [id number] [address] [place] [id number] Mar, [facility] [address] [id number] [address] [place] [phone] Mar, Major depressive disorder, r ecurrent episode, 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 [facility] [address] [id number] [address] [place] [id number] Mar, Major depressive disorder, r ecurrent episode, 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 ; Adjustment disorder with anxious mood F43.22 and Delusional disorder F22 [facility] [address] [id number] [address] [place] [address] Mar, Major depressive disorder, r ecurrent episode, 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 [facility] [address] [facility] [id number] [address] [place] [id number] Feb, Major depressive disorder, r ecurrent episode, 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 [facility] [address] [id number] [address] [place] [address] Feb, Major depressive disorder, r ecurrent episode, 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 ; Adjustment disorder with anxious mood F43.22 and Delusional disorder F22 [facility] [address] [id number] [address] [place] [id number] Jan, Major depressive disorder, r ecurrent episode, 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 [facility] [address] [id number] [address] [place] [id number] Jan, Major depressive disorder, r ecurrent episode, 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 [facility] [address] [facility] [id number] [address] [place] [address] Jan, Major depressive disorder, r ecurrent episode, 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 [facility] [address] [id number] [address] [place] [id number] Dec, Major depressive disorder, r ecurrent episode, 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 [facility] [address] [id number] [address] [place] [id number] Dec, Major depressive disorder, r ecurrent episode, 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 ; Adjustment disorder with anxious mood F43.22 and Delusional disorder F22 [facility] [address] [id number] [address] [place] [id number] Dec, Major depressive disorder, r ecurrent episode, 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 [facility] [address] [id number] [address] [place] [id number] Dec, [id number] [place] [id number] Dec, [facility] [address] [id number] [address] [place] [address] Dec, Major depressive disorder, r ecurrent episode, 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 [facility] [address] [id number] [address] [place] [address] Nov, Major depressive disorder, r ecurrent episode, 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 [facility] [address] [id number] [address] [place] [address] Nov, Major depressive disorder, r ecurrent episode, 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 [facility] [address] [id number] [address] [place] [phone] Nov, Major depressive disorder, r ecurrent episode, 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 and Adjustment disorder with anxious mood F43.22 [facility] [address] [id number] [address] [place] [phone] September, Major depressive disorder, r ecurrent episode, 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 [facility] [address] [id number] [address] [place] [id number] Aug, Major depressive disorder, r ecurrent episode, 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 [facility] [address] [id number] [address] [place] [id number] Jul, Major depressive disorder, r ecurrent episode, 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 [facility] [address] [id number] [address] [place] [id number] Jul, [facility] [address] [id number] [address] [place] [phone] Jun, Major depressive disorder, r ecurrent episode, 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 and 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 [facility] [address] [id number] [address] [place] [phone] Jun, [facility] [address] [id number] [address] [place] [address] May, Major depressive disorder, r ecurrent episode, 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 [facility] [address] [id number] [address] [place] [phone] Mar, [facility] [address] [id number] [address] [place] [id number] Mar, [facility] [address] [id number] [address] [place] [id number] Mar, [facility] [address] [id number] [address] [place] [address] Mar, Major depressive disorder, r ecurrent episode, 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 [facility] [address] [id number] [address] [place] [id number] Feb, [facility] [address] [id number] [address] [place] [id number] Feb, [facility] [address] [id number] [address] [place] [id number] Feb, [facility] [address] [id number] [address] [place] [id number] Jan, [facility] [address] [id number] [address] [place] [phone] Jan, Major depressive disorder, r ecurrent episode, 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 [facility] [address] [id number] [address] [place] [id number] Jan, [facility] [address] [id number] [address] [place] [address] Oct, Major depressive disorder, r ecurrent episode, 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 [facility] [address] [id number] [address] [place] [address] September, [facility] [address] [id number] [address] [place] [id number] September, [facility] [address] [id number] [address] [place] [phone] Aug, Major depressive disorder, r ecurrent episode, 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 [facility] [address] [id number] [address] [place] [address] Jul, Recur major depre, part emi s F33.41 IMMUNIZATIONS No Known Immunizations SOCIAL HISTORY Never Assessed REASON FOR VISIT SUSAN mcneal/monik Tang MA PLAN OF CARE Activity Details Follow Up 3 Months Reason:SUSAN f/monik VITAL SIGNS Height 60 in 2017-10-17 Weight 215.1 lbs 2017-10-17 Heart Rate 83 bpm 2017-10-17 Respiratory Rate 20 2017-10-17 BMI 42.00 kg/m2 2017-10-17 Blood pressure systolic 130 mmHg 2017-10-17 Blood pressure diastolic 65 mmHg 2017-10-17 MEDICATIONS Medication Instructions Dosage Frequency Start Date End Date Duration S christyus Omeprazole 20 MG Orally Once a day 2 capsules 24h Active Lipitor 20 MG Orally Once a day 1 tablet 24h Active Levothyroxine Sodium 100 MCG Orally Once a day 1 tablet 24h Active Effexor XR 75 MG Orally Once a day 1 capsule with food 24h Active Lumigan 0.01 % Ophthalmic Once a day 1 drop into affected eye i n the evening 24h Active Alphagan P 0.15 % Ophthalmic Once a day 1 drop into affected eye 24h Active Lorazepam 0.5 MG Orally daily 1 tablet at bedtime as needed 24h Active Zyprexa 5 mg Orally in the morning and 2 tablets at bedtime 1 tablet Active Depakote 250 MG Orally 3 times a day 1 tablet 8h Active RESULTS No Results PROCEDURES Procedure Date Ordered Result Body Site [facility] VISIT ESTABLISHED PATIENT October 17, 2017 INSTRUCTIONS MEDICATIONS ADMINISTERED No Known Medications [...] due to a fall 09/2016 Hospitalization History [facility] health 03/21/17-
--- OUTSIDE RECORDS SUMMARY | 2019-11-07 17:29 | XMS REPORT ---
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 Active 73320753 Problem Delusional disorder F22 Active 21368488 Problem Adjustment disorder with anxious mood F43.22 Active 98546417 ALLERGIES Substance Reaction Event Type Date Status SulfADIAZINE Unknown Drug Allergy Feb, Active Quinine Sulfate Unknown Drug Allergy Feb, Active Neosporin Unknown Drug Allergy Feb, Active Benadryl Unknown Drug Allergy Feb, Active ENCOUNTERS Encounter Location Date Diagnosis [place] [address] [address] [facility] [id number] [address] [place] [id number] Oct, [place] [id number] [facility] [id number] [address] [place] [phone] September, [facility] [address] [place] [id number] [address] [place] [id number] Aug, Major depressive disorder, r ecurrent episode, 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 [facility] [address] [facility] [id number] [address] [place] [phone] Aug, Major depressive disorder, r ecurrent episode, 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 ; Delusional disorder F22 and RAD (generalized anxiety disorder) F41.1 [facility] [address] [place] [id number] [address] [place] [id number] Jul, Major depressive disorder, r ecurrent episode, 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 [facility] [address] [id number] [address] [place] [phone] Jul, Major depressive disorder, r ecurrent episode, unspecified F33.9 [facility] [address] [id number] [address] [place] [id number] Jun, Major depressive disorder, r ecurrent episode, 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 [facility] [address] [id number] [address] [place] [phone] May, Major depressive disorder, r ecurrent episode, 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 ; Delusional disorder F22 and RAD (generalized anxiety disorder) F41.1 [facility] [address] [id number] [address] [place] [id number] May, [facility] [address] [id number] [address] [place] [phone] May, Major depressive disorder, r ecurrent episode, 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 [facility] [address] [id number] [address] [place] [phone] May, Major depressive disorder, r ecurrent episode, 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 ; Adjustment disorder with anxious mood F43.22 and Delusional disorder F22 [facility] [address] [id number] [address] [place] [id number] Mar, [facility] [address] [id number] [address] [place] [id number] Mar, Major depressive disorder, r ecurrent episode, 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 [facility] [address] [id number] [address] [place] [phone] Mar, Major depressive disorder, r ecurrent episode, 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 ; Adjustment disorder with anxious mood F43.22 and Delusional disorder F22 [facility] [address] [id number] [address] [place] [id number] Mar, Major depressive disorder, r ecurrent episode, 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 [facility] [address] [id number] [address] [place] [id number] Feb, Major depressive disorder, r ecurrent episode, 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 [facility] [address] [id number] [address] [place] [id number] Feb, Major depressive disorder, r ecurrent episode, 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 ; Adjustment disorder with anxious mood F43.22 and Delusional disorder F22 [facility] [address] [id number] [address] [place] [phone] Jan, Major depressive disorder, r ecurrent episode, 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 [facility] [address] [id number] [address] [place] [id number] Jan, Major depressive disorder, r ecurrent episode, 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 [facility] [address] [id number] [address] [place] [phone] Jan, Major depressive disorder, r ecurrent episode, 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 [facility] [address] [id number] [address] [place] [phone] Dec, Major depressive disorder, r ecurrent episode, 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 [facility] [address] [id number] [address] [place] [phone] Dec, Major depressive disorder, r ecurrent episode, 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 ; Adjustment disorder with anxious mood F43.22 and Delusional disorder F22 [facility] [address] [id number] [address] [place] [phone] Dec, Major depressive disorder, r ecurrent episode, 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 [facility] [address] [id number] [address] [place] [phone] Dec, [facility] [id number] [place] [phone] Dec, [facility] [address] [id number] [address] [place] [phone] Dec, Major depressive disorder, r ecurrent episode, 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 [facility] [address] [id number] [address] [place] [phone] Nov, Major depressive disorder, r ecurrent episode, 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 [place] [id number] [facility] [id number] [address] [place] [phone] Nov, Major depressive disorder, r ecurrent episode, 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 [facility] [address] [id number] [address] [place] [id number] Nov, Major depressive disorder, r ecurrent episode, 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 and Adjustment disorder with anxious mood F43.22 [facility] [address] [id number] [address] [place] [id number] September, Major depressive disorder, r ecurrent episode, 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 [facility] [address] [id number] [address] [place] [phone] Aug, Major depressive disorder, r ecurrent episode, 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 [facility] [address] [id number] [address] [place] [phone] Jul, Major depressive disorder, r ecurrent episode, 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 [facility] [address] [id number] [address] [place] [phone] Jul, [facility] [address] [id number] [address] [place] [phone] Jun, Major depressive disorder, r ecurrent episode, 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 and Other detention (current) drug therapy Z79.899 [facility] [address] [id number] [address] [place] [phone] Jun, [facility] [address] [id number] [address] [place] [phone] May, Major depressive disorder, r ecurrent episode, 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 [facility] [address] [id number] [address] [place] [phone] Mar, [facility] [address] [id number] [address] [place] [phone] Mar, [facility] [address] [id number] [address] [place] [phone] Mar, [facility] [address] [id number] [address] [place] [phone] Mar, Major depressive disorder, r ecurrent episode, 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 [facility] [address] [id number] [address] [place] [phone] Feb, [facility] [address] [id number] [address] [place] [phone] Feb, [facility] [address] [id number] [address] [place] [phone] Feb, [facility] [address] [id number] [address] [place] [phone] Jan, [facility] [address] [id number] [address] [place] [id number] Jan, Major depressive disorder, r ecurrent episode, 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 [facility] [address] [facility] [id number] [address] [place] [phone] Jan, [facility] [address] [facility] [id number] [address] [place] [phone] Oct, Major depressive disorder, r ecurrent episode, 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 [facility] [address] [facility] [id number] [address] [place] [id number] September, [facility] [address] [facility] [id number] [address] [place] [phone] September, [facility] [address] [facility] [id number] [address] [place] [phone] Aug, Major depressive disorder, r ecurrent episode, 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 [facility] [address] [facility] [id number] [address] [place] [phone] Jul, Recur major depre, part emi s F33.41 IMMUNIZATIONS No Known Immunizations SOCIAL HISTORY Never Assessed REASON FOR VISIT f/u--Tavares De Luna MA PLAN OF CARE Activity Details Follow Up 4 Weeks Reason: f/u VITAL SIGNS Height 60 in 2017-02-28 Weight 199.0 lbs 2017-02-28 Heart Rate 94 bpm 2017-02-28 Respiratory Rate 20 2017-02-28 BMI 38.86 kg/m2 2017-02-28 Blood pressure systolic 134 mmHg 2017-02-28 Blood pressure diastolic 86 mmHg 2017-02-28 MEDICATIONS Medication Instructions Dosage Frequency Start Date End Date Duration S tatus Alphagan P 0.15 % Ophthalmic Once a day 1 drop into affected eye 24h Active Lumigan 0.01 % Ophthalmic Once a day 1 drop into affected eye i n the evening 24h Active Remeron 15 MG Orally Once a day 1 tablet before bedtime in the evening 24h Active Ciprofloxacin HCl 250 MG Orally every 12 hrsx 5days 1 tablet Active Lipitor 40 MG Orally Once a day 1 tablet 24h Active Omeprazole 20 MG Orally Once a day 2 capsules 24h Active Abilify 5 mg Orally Once a day at bedtime 1 tablet Feb, 30 day(s) Active Depakote 125 mg TAKE Three TABLETS BY MOUTH EVERY NIGHT AT BEDT [place]JAY Active Levothyroxine Sodium 88 MCG Orally Once a day 1 tablet 24h Active Lorazepam 0.5 MG Orally daily 1 tablet at bedtime as needed 24h Active Effexor XR 75 MG Orally Once a day 1 capsule with food 24h Active RESULTS No Results PROCEDURES Procedure Date Ordered Result Body Site [facility] VISIT ESTABLISHED PATIENT Feb 28, 2017 INSTRUCTIONS MEDICATIONS ADMINISTERED No Known [...] due to a fall 09/2016 Hospitalization History [facility] health 03/21/17-
--- OUTSIDE RECORDS SUMMARY | 2019-11-07 17:30 | XMS REPORT ---
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 Active 92815911 Problem Delusional disorder F22 Active 24142788 Problem Adjustment disorder with anxious mood F43.22 Active 95666375 ALLERGIES No Information ENCOUNTERS Encounter Location Date Diagnosis [place] [address] [place] [id number] [address] [place] [phone] Oct, [place] [address] [place] [id number] [address] [place] [phone] September, [place] [address] [place] [id number] [address] [place] [phone] Aug, Major depressive disorder, r ecurrent episode, 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 [facility] [address] [place] [id number] [address] [place] [phone] Aug, Major depressive disorder, r ecurrent episode, 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 ; Delusional disorder F22 and RAD (generalized anxiety disorder) F41.1 [facility] [address] [facility] [id number] [address] [place] [phone] Jul, Major depressive disorder, r ecurrent episode, 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 [place] [address] [id number] [address] [place] [phone] Jul, Major depressive disorder, r ecurrent episode, unspecified F33.9 [facility] [address] [facility] [id number] [address] [place] [phone] Jun, Major depressive disorder, r ecurrent episode, 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 [facility] [address] [id number] [address] [place] [phone] May, Major depressive disorder, r ecurrent episode, 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 ; Delusional disorder F22 and RAD (generalized anxiety disorder) F41.1 [facility] [address] [id number] [address] [place] [phone] May, [facility] [address] [id number] [address] [place] [phone] May, Major depressive disorder, r ecurrent episode, 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 [facility] [address] [id number] [address] [place] [phone] May, Major depressive disorder, r ecurrent episode, 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 ; Adjustment disorder with anxious mood F43.22 and Delusional disorder F22 [facility] [address] [id number] [address] [place] [phone] Mar, [facility] [address] [id number] [address] [place] [phone] Mar, Major depressive disorder, r ecurrent episode, 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 [facility] [address] [id number] [address] [place] [phone] Mar, Major depressive disorder, r ecurrent episode, 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 ; Adjustment disorder with anxious mood F43.22 and Delusional disorder F22 [facility] [address] [id number] [address] [place] [phone] Mar, Major depressive disorder, r ecurrent episode, 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 [facility] [address] [id number] [address] [place] [phone] Feb, Major depressive disorder, r ecurrent episode, 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 [facility] [address] [id number] [address] [place] [phone] Feb, Major depressive disorder, r ecurrent episode, 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 ; Adjustment disorder with anxious mood F43.22 and Delusional disorder F22 [facility] [address] [id number] [address] [place] [phone] Jan, Major depressive disorder, r ecurrent episode, 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 [facility] [address] [id number] [address] [place] [phone] Jan, Major depressive disorder, r ecurrent episode, 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 [facility] [address] [id number] [address] [place] [phone] Jan, Major depressive disorder, r ecurrent episode, 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 [facility] [address] [id number] [address] [place] [phone] Dec, Major depressive disorder, r ecurrent episode, 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 [facility] [address] [id number] [address] [place] [phone] Dec, Major depressive disorder, r ecurrent episode, 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 ; Adjustment disorder with anxious mood F43.22 and Delusional disorder F22 [facility] [address] [id number] [address] [place] [phone] Dec, Major depressive disorder, r ecurrent episode, 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 [facility] [address] [id number] [address] [place] [phone] Dec, [facility] [id number] [place] [address] Dec, [facility] [address] [facility] [id number] [address] [place] [phone] Dec, Major depressive disorder, r ecurrent episode, 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 [facility] [address] [id number] [address] [place] [phone] Nov, Major depressive disorder, r ecurrent episode, 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 [facility] [address] [id number] [address] [place] [phone] Nov, Major depressive disorder, r ecurrent episode, 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 [facility] [address] [facility] [id number] [address] [place] [address] Nov, Major depressive disorder, r ecurrent episode, 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 and Adjustment disorder with anxious mood F43.22 [facility] [address] [facility] [id number] [address] [place] [phone] September, Major depressive disorder, r ecurrent episode, 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 [facility] [address] [facility] [id number] [address] [place] [phone] Aug, Major depressive disorder, r ecurrent episode, 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 [facility] [address] [id number] [address] [place] [address] Jul, Major depressive disorder, r ecurrent episode, 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 [facility] [address] [id number] [address] [place] [phone] Jul, [facility] [address] [facility] [id number] [address] [place] [phone] Jun, Major depressive disorder, r ecurrent episode, 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 and Other assisted (current) drug therapy Z79.899 [facility] [address] [id number] [address] [place] [phone] Jun, [facility] [address] [id number] [address] [place] [phone] May, Major depressive disorder, r ecurrent episode, 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 [facility] [address] [id number] [address] [place] [phone] Mar, [facility] [address] [id number] [address] [place] [phone] Mar, [facility] [address] [id number] [address] [place] [phone] Mar, [facility] [address] [id number] [address] [place] [phone] Mar, Major depressive disorder, r ecurrent episode, 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 [facility] [address] [id number] [address] [place] [phone] Feb, [facility] [address] [id number] [address] [place] [phone] Feb, [facility] [address] [id number] [address] [place] [phone] Feb, [facility] [address] [id number] [address] [place] [phone] Jan, [facility] [address] [id number] [address] [place] [phone] Jan, Major depressive disorder, r ecurrent episode, 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 [facility] [address] [id number] [address] [place] [phone] Jan, [facility] [address] [facility] [id number] [address] [place] [phone] Oct, Major depressive disorder, r ecurrent episode, 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 [facility] [address] [facility] [id number] [address] [place] [phone] September, [facility] [address] [facility] [id number] [address] [place] [phone] September, [facility] [address] [facility] [id number] [address] [place] [phone] Aug, Major depressive disorder, r ecurrent episode, 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 PLAN OF CARE Activity Details Follow Up 2 Weeks Reason:depression VITAL SIGNS MEDICATIONS Unknown Medications RESULTS No Results PROCEDURES Procedure Date Ordered Result Body Site [facility] VISIT MENTAL HEALTH ESTAB PT Mar 09, 2017 Psychotherapy, patient &/family, 45 minutes, established patient Mar 09, 2017 INSTRUCTIONS MEDICATIONS ADMINISTERED No Known Medications MEDICAL (GENERAL) HISTORY Type Description Date Surgical History appendectomy 1950 Surgical History 1959 Surgical History 1966 Surgical History Left knee replacement 1998 Surgical History blood transfusion 1998 Surgical History removal right side of thyroid gland 2007 Surgical History Right knee replacement 2009 Hospitalization History surgeries Hospitalization History psychiatric hospitalizations x4-5 Hospitalization History hospitalized for two nights due to a fall 09/2016 Hospitalization History [facility] 03/21/17-
--- OUTSIDE RECORDS SUMMARY | 2019-11-07 17:30 | XMS REPORT ---
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 Active 95191163 Problem Delusional disorder F22 Active 07850182 Problem Adjustment disorder with anxious mood F43.22 Active 96242519 ALLERGIES No Information ENCOUNTERS Encounter Location Date Diagnosis [facility] [address] [facility] [id number] [address] [place] [phone] Oct, [facility] [address] [facility] [id number] [address] [place] [phone] Oct, [place] [address] [facility] [id number] [address] [place] [phone] September, Major depressive disorder, r ecurrent episode, 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 [facility] [address] [facility] [id number] [address] [place] [phone] Aug, Major depressive disorder, r ecurrent episode, 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 [facility] [address] [facility] [id number] [address] [place] [phone] Aug, Major depressive disorder, r ecurrent episode, 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 ; Delusional disorder F22 and RAD (generalized anxiety disorder) F41.1 [facility] [address] [place] [id number] [address] [place] [phone] Jul, Major depressive disorder, r ecurrent episode, 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 [facility] [address] [id number] [address] [place] [phone] Jul, Major depressive disorder, r ecurrent episode, unspecified F33.9 [facility] [address] [id number] [address] [place] [address] Jun, Major depressive disorder, r ecurrent episode, 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 [facility] [address] [id number] [address] [place] [phone] May, Major depressive disorder, r ecurrent episode, 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 ; Delusional disorder F22 and RAD (generalized anxiety disorder) F41.1 [facility] [address] [facility] [id number] [address] [place] [phone] May, [facility] [address] [id number] [address] [place] [phone] May, Major depressive disorder, r ecurrent episode, 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 [facility] [address] [id number] [address] [place] [phone] May, Major depressive disorder, r ecurrent episode, 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 ; Adjustment disorder with anxious mood F43.22 and Delusional disorder F22 [facility] [address] [id number] [address] [place] [phone] Mar, [facility] [address] [facility] [id number] [address] [place] [phone] Mar, Major depressive disorder, r ecurrent episode, 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 [facility] [address] [facility] [id number] [address] [place] [phone] Mar, Major depressive disorder, r ecurrent episode, 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 ; Adjustment disorder with anxious mood F43.22 and Delusional disorder F22 [facility] [address] [id number] [address] [place] [phone] Mar, Major depressive disorder, r ecurrent episode, 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 [facility] [address] [id number] [address] [place] [phone] Feb, Major depressive disorder, r ecurrent episode, 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 [facility] [address] [id number] [address] [place] [address] Feb, Major depressive disorder, r ecurrent episode, 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 ; Adjustment disorder with anxious mood F43.22 and Delusional disorder F22 [facility] [address] [facility] [id number] [address] [place] [phone] Jan, Major depressive disorder, r ecurrent episode, 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 [facility] [address] [id number] [address] [place] [phone] Jan, Major depressive disorder, r ecurrent episode, 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 [facility] [address] [id number] [address] [place] [phone] Jan, Major depressive disorder, r ecurrent episode, 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 [facility] [address] [id number] [address] [place] [address] Dec, Major depressive disorder, r ecurrent episode, 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 [facility] [address] [id number] [address] [place] [phone] Dec, Major depressive disorder, r ecurrent episode, 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 ; Adjustment disorder with anxious mood F43.22 and Delusional disorder F22 [facility] [address] [id number] [address] [place] [phone] Dec, Major depressive disorder, r ecurrent episode, 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 [facility] [address] [id number] [address] [place] [phone] Dec, [facility] [id number] [place] [address] Dec, [facility] [address] [id number] [address] [place] [address] Dec, Major depressive disorder, r ecurrent episode, 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 [facility] [address] [facility] [id number] [address] [place] [phone] Nov, Major depressive disorder, r ecurrent episode, 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 [facility] [address] [facility] [id number] [address] [place] [phone] Nov, Major depressive disorder, r ecurrent episode, 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 [facility] [address] [facility] [id number] [address] [place] [phone] Nov, Major depressive disorder, r ecurrent episode, 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 and Adjustment disorder with anxious mood F43.22 [facility] [address] [facility] [id number] [address] [place] [phone] September, Major depressive disorder, r ecurrent episode, 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 [facility] [address] [facility] [id number] [address] [place] [phone] Aug, Major depressive disorder, r ecurrent episode, 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 [facility] [address] [facility] [id number] [address] [place] [phone] Jul, Major depressive disorder, r ecurrent episode, 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 [facility] [address] [id number] [address] [place] [phone] Jul, [facility] [address] [id number] [address] [place] [phone] Jun, Major depressive disorder, r ecurrent episode, 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 and Other half-way (current) drug therapy Z79.899 [facility] [address] [id number] [address] [place] [address] Jun, [facility] [address] [id number] [address] [place] [phone] May, Major depressive disorder, r ecurrent episode, 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 [facility] [address] [id number] [address] [place] [phone] Mar, [facility] [address] [id number] [address] [place] [phone] Mar, [facility] [address] [id number] [address] [place] [phone] Mar, [facility] [address] [id number] [address] [place] [phone] Mar, Major depressive disorder, r ecurrent episode, 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 [facility] [address] [id number] [address] [place] [phone] Feb, [facility] [address] [id number] [address] [place] [phone] Feb, [facility] [address] [id number] [address] [place] [phone] Feb, [facility] [address] [id number] [address] [place] [phone] Jan, [facility] [address] [id number] [address] [place] [phone] Jan, Major depressive disorder, r ecurrent episode, 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 [facility] [address] [facility] [id number] [address] [place] [phone] Jan, [facility] [address] [facility] [id number] [address] [place] [phone] Oct, Major depressive disorder, r ecurrent episode, 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 [facility] [address] [facility] [id number] [address] [place] [phone] September, [facility] [address] [facility] [id number] [address] [place] [phone] September, [facility] [address] [facility] [id number] [address] [place] [phone] Aug, Major depressive disorder, r ecurrent episode, 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
--- OUTSIDE RECORDS SUMMARY | 2019-11-07 17:30 | XMS REPORT ---
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 Active 96852120 Problem Delusional disorder F22 Active 06483092 Problem Adjustment disorder with anxious mood F43.22 Active 32470864 ALLERGIES Substance Reaction Event Type Date Status SulfADIAZINE Unknown Drug Allergy May, Active Quinine Sulfate Unknown Drug Allergy May, Active Neosporin Unknown Drug Allergy May, Active Benadryl Unknown Drug Allergy May, Active ENCOUNTERS Encounter Location Date Diagnosis [facility] [address] [facility] [id number] [address] [place] [phone] Jan, [facility] [address] [place] [id number] [address] [place] [phone] Oct, [facility] [address] [place] [id number] [address] [place] [phone] Oct, Major depressive disorder, r ecurrent episode, 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 ; Delusional disorder F22 and RAD (generalized anxiety disorder) F41.1 [facility] [address] [facility] [id number] [address] [place] [phone] September, Major depressive disorder, r ecurrent episode, 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 [facility] [address] [place] [id number] [address] [place] [phone] Aug, Major depressive disorder, r ecurrent episode, 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 [facility] [address] [facility] [id number] [address] [place] [phone] Aug, Major depressive disorder, r ecurrent episode, 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 ; Delusional disorder F22 and RAD (generalized anxiety disorder) F41.1 [facility] [address] [facility] [id number] [address] [place] [address] Jul, Major depressive disorder, r ecurrent episode, 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 [facility] [address] [facility] [id number] [address] [place] [phone] Jul, Major depressive disorder, r ecurrent episode, unspecified F33.9 [facility] [address] [facility] [id number] [address] [place] [address] Jun, Major depressive disorder, r ecurrent episode, 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 [facility] [address] [facility] [id number] [address] [place] [address] May, Major depressive disorder, r ecurrent episode, 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 ; Delusional disorder F22 and RAD (generalized anxiety disorder) F41.1 [facility] [address] [facility] [id number] [address] [place] [phone] May, [facility] [address] [facility] [id number] [address] [place] [address] May, Major depressive disorder, r ecurrent episode, 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 [facility] [address] [facility] [id number] [address] [place] [phone] May, Major depressive disorder, r ecurrent episode, 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 ; Adjustment disorder with anxious mood F43.22 and Delusional disorder F22 [facility] [address] [id number] [address] [place] [phone] Mar, [facility] [address] [id number] [address] [place] [phone] Mar, Major depressive disorder, r ecurrent episode, 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 [facility] [address] [id number] [address] [place] [phone] Mar, Major depressive disorder, r ecurrent episode, 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 ; Adjustment disorder with anxious mood F43.22 and Delusional disorder F22 [facility] [address] [id number] [address] [place] [phone] Mar, Major depressive disorder, r ecurrent episode, 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 [facility] [address] [facility] [id number] [address] [place] [phone] Feb, Major depressive disorder, r ecurrent episode, 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 [facility] [address] [id number] [address] [place] [phone] Feb, Major depressive disorder, r ecurrent episode, 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 ; Adjustment disorder with anxious mood F43.22 and Delusional disorder F22 [facility] [address] [id number] [address] [place] [address] Jan, Major depressive disorder, r ecurrent episode, 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 [facility] [address] [id number] [address] [place] [address] Jan, Major depressive disorder, r ecurrent episode, 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 [facility] [address] [id number] [address] [place] [address] Jan, Major depressive disorder, r ecurrent episode, 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 [facility] [address] [id number] [address] [place] [phone] Dec, Major depressive disorder, r ecurrent episode, 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 [facility] [address] [id number] [address] [place] [phone] Dec, Major depressive disorder, r ecurrent episode, 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 ; Adjustment disorder with anxious mood F43.22 and Delusional disorder F22 [facility] [address] [id number] [address] [place] [phone] Dec, Major depressive disorder, r ecurrent episode, 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 [facility] [address] [facility] [id number] [address] [place] [phone] Dec, [id number] [place] [phone] Dec, [facility] [address] [facility] [id number] [address] [place] [phone] Dec, Major depressive disorder, r ecurrent episode, 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 [facility] [address] [id number] [address] [place] [phone] Nov, Major depressive disorder, r ecurrent episode, 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 [facility] [address] [facility] [id number] [address] [place] [address] Nov, Major depressive disorder, r ecurrent episode, 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 [facility] [address] [id number] [address] [place] [phone] Nov, Major depressive disorder, r ecurrent episode, 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 and Adjustment disorder with anxious mood F43.22 [facility] [address] [facility] [id number] [address] [place] [phone] September, Major depressive disorder, r ecurrent episode, 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 [facility] [address] [id number] [address] [place] [phone] Aug, Major depressive disorder, r ecurrent episode, 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 [facility] [address] [id number] [address] [place] [phone] Jul, Major depressive disorder, r ecurrent episode, 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 [facility] [address] [id number] [address] [place] [phone] Jul, [facility] [address] [id number] [address] [place] [phone] Jun, Major depressive disorder, r ecurrent episode, 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 and Other long chain beamer (current) drug therapy Z79.899 [facility] [address] [id number] [address] [place] [phone] Jun, [facility] [address] [id number] [address] [place] [phone] May, Major depressive disorder, r ecurrent episode, 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 [facility] [address] [id number] [address] [place] [phone] Mar, [facility] [address] [id number] [address] [place] [phone] Mar, [facility] [address] [id number] [address] [place] [address] Mar, [facility] [address] [id number] [address] [place] [phone] Mar, Major depressive disorder, r ecurrent episode, 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 [facility] [address] [id number] [address] [place] [address] Feb, [facility] [address] [id number] [address] [place] [phone] Feb, [facility] [address] [id number] [address] [place] [phone] Feb, [facility] [address] [id number] [address] [place] [phone] Jan, [facility] [address] [id number] [address] [place] [phone] Jan, Major depressive disorder, r ecurrent episode, 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 [facility] [address] [id number] [address] [place] [phone] Jan, [facility] [address] [id number] [address] [place] [phone] Oct, Major depressive disorder, r ecurrent episode, 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 [facility] [address] [id number] [address] [place] [phone] September, [facility] [address] [id number] [address] [place] [address] September, [facility] [address] [id number] [address] [place] [phone] Aug, Major depressive disorder, r ecurrent episode, 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 [facility] [address] [id number] [address] [place] [address] Jul, Recur major depre, part emi s F33.41 IMMUNIZATIONS No Known Immunizations SOCIAL HISTORY Never Assessed REASON FOR VISIT f/u, contract PLAN OF CARE Activity Details Follow Up 4 Weeks Reason: f/u VITAL SIGNS Height 60 in 2017-06-07 Weight 203.6 lbs 2017-06-07 Heart Rate 96 bpm 2017-06-07 Respiratory Rate 20 2017-06-07 BMI 39.76 kg/m2 2017-06-07 Blood pressure systolic 112 mmHg 2017-06-07 Blood pressure diastolic 62 mmHg 2017-06-07 MEDICATIONS Medication Instructions Dosage Frequency Start Date End Date Duration S jhon Zyprexa 5 mg Orally in the morning and 2 tablets at bedtime 1 tablet Active Lorazepam 0.5 MG Orally daily 1 tablet at bedtime as needed 24h Active Effexor XR 75 MG Orally Once a day 1 capsule with food 24h Active Lumigan 0.01 % Ophthalmic Once a day 1 drop into affected eye i n the evening 24h Active Depakote 125 mg Orally 3 times a day 2 tablet 8h Active Levothyroxine Sodium 88 MCG Orally Once a day 1 tablet 24h Active Lipitor 40 MG Orally Once a day 1 tablet 24h Active Alphagan P 0.15 % Ophthalmic Once a day 1 drop into affected eye 24h Active Omeprazole 20 MG Orally Once a day 2 capsules 24h Active RESULTS No Results PROCEDURES Procedure Date Ordered Result Body Site [facility] VISIT ESTABLISHED PATIENT Jun 07, 2017 INSTRUCTIONS MEDICATIONS ADMINISTERED No Known [...] due to a fall 09/2016 Hospitalization History [facility] 03/21/17-
--- OUTSIDE RECORDS SUMMARY | 2019-11-07 17:30 | XMS REPORT ---
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 Active 77803392 Problem Delusional disorder F22 Active 60614890 Problem Adjustment disorder with anxious mood F43.22 Active 40682006 ALLERGIES No Information ENCOUNTERS Encounter Location Date Diagnosis [place] [address] [facility] [id number] [address] [place] [phone] Oct, [place] [address] [facility] [id number] [address] [place] [phone] Oct, [place] [address] [facility] [id number] [address] [place] [phone] September, Major depressive disorder, r ecurrent episode, 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 [facility] [address] [facility] [id number] [address] [place] [phone] Aug, Major depressive disorder, r ecurrent episode, 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 [facility] [address] [facility] [id number] [address] [place] [phone] Aug, Major depressive disorder, r ecurrent episode, 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 ; Delusional disorder F22 and RAD (generalized anxiety disorder) F41.1 [place] [address] [id number] [address] [place] [phone] Jul, Major depressive disorder, r ecurrent episode, 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 [facility] [address] [id number] [address] [place] [phone] Jul, Major depressive disorder, r ecurrent episode, unspecified F33.9 [facility] [address] [id number] [address] [place] [phone] Jun, Major depressive disorder, r ecurrent episode, 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 [facility] [address] [id number] [address] [place] [phone] May, Major depressive disorder, r ecurrent episode, 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 ; Delusional disorder F22 and RAD (generalized anxiety disorder) F41.1 [facility] [address] [id number] [address] [place] [phone] May, [facility] [address] [id number] [address] [place] [phone] May, Major depressive disorder, r ecurrent episode, 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 [facility] [address] [id number] [address] [place] [phone] May, Major depressive disorder, r ecurrent episode, 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 ; Adjustment disorder with anxious mood F43.22 and Delusional disorder F22 [facility] [address] [id number] [address] [place] [phone] Mar, [facility] [address] [id number] [address] [place] [phone] Mar, Major depressive disorder, r ecurrent episode, 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 [facility] [address] [id number] [address] [place] [address] Mar, Major depressive disorder, r ecurrent episode, 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 ; Adjustment disorder with anxious mood F43.22 and Delusional disorder F22 [facility] [address] [id number] [address] [place] [phone] Mar, Major depressive disorder, r ecurrent episode, 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 [facility] [address] [id number] [address] [place] [phone] Feb, Major depressive disorder, r ecurrent episode, 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 [facility] [address] [id number] [address] [place] [phone] Feb, Major depressive disorder, r ecurrent episode, 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 ; Adjustment disorder with anxious mood F43.22 and Delusional disorder F22 [facility] [address] [id number] [address] [place] [phone] Jan, Major depressive disorder, r ecurrent episode, 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 [facility] [address] [id number] [address] [place] [phone] Jan, Major depressive disorder, r ecurrent episode, 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 [facility] [address] [id number] [address] [place] [phone] Jan, Major depressive disorder, r ecurrent episode, 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 [facility] [address] [id number] [address] [place] [phone] Dec, Major depressive disorder, r ecurrent episode, 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 [facility] [address] [id number] [address] [place] [address] Dec, Major depressive disorder, r ecurrent episode, 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 ; Adjustment disorder with anxious mood F43.22 and Delusional disorder F22 [facility] [address] [id number] [address] [place] [phone] Dec, Major depressive disorder, r ecurrent episode, 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 [facility] [address] [id number] [address] [place] [phone] Dec, [facility] [id number] [place] [phone] Dec, [facility] [address] [id number] [address] [place] [phone] Dec, Major depressive disorder, r ecurrent episode, 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 [facility] [address] [id number] [address] [place] [phone] Nov, Major depressive disorder, r ecurrent episode, 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 [place] [address] [facility] [id number] [address] [place] [phone] Nov, Major depressive disorder, r ecurrent episode, 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 [facility] [address] [id number] [address] [place] [address] Nov, Major depressive disorder, r ecurrent episode, 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 and Adjustment disorder with anxious mood F43.22 [facility] [address] [id number] [address] [place] [phone] September, Major depressive disorder, r ecurrent episode, 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 [facility] [address] [id number] [address] [place] [phone] Aug, Major depressive disorder, r ecurrent episode, 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 [facility] [address] [id number] [address] [place] [phone] Jul, Major depressive disorder, r ecurrent episode, 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 [facility] [address] [id number] [address] [place] [phone] Jul, [facility] [address] [id number] [address] [place] [phone] Jun, Major depressive disorder, r ecurrent episode, 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 and 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 [facility] [address] [id number] [address] [place] [phone] Jun, [facility] [address] [id number] [address] [place] [phone] May, Major depressive disorder, r ecurrent episode, 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 [facility] [address] [id number] [address] [place] [phone] Mar, [facility] [address] [id number] [address] [place] [phone] Mar, [facility] [address] [id number] [address] [place] [phone] Mar, [facility] [address] [id number] [address] [place] [phone] Mar, Major depressive disorder, r ecurrent episode, 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 [facility] [address] [id number] [address] [place] [phone] Feb, [facility] [address] [id number] [address] [place] [phone] Feb, [facility] [address] [id number] [address] [place] [phone] Feb, [facility] [address] [id number] [address] [place] [phone] Jan, [facility] [address] [id number] [address] [place] [phone] Jan, Major depressive disorder, r ecurrent episode, 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 [facility] [address] [facility] [id number] [address] [place] [phone] Jan, [facility] [address] [facility] [id number] [address] [place] [phone] Oct, Major depressive disorder, r ecurrent episode, 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 [facility] [address] [facility] [id number] [address] [place] [phone] September, [facility] [address] [facility] [id number] [address] [place] [phone] September, [facility] [address] [facility] [id number] [address] [place] [phone] Aug, Major depressive disorder, r ecurrent episode, 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 PLAN OF CARE Activity Details Follow Up Next available Reason:depres jessa VITAL SIGNS MEDICATIONS Unknown Medications RESULTS No Results PROCEDURES Procedure Date Ordered Result Body Site [facility] VISIT MENTAL HEALTH ESTAB PT Mar 28, 2017 Psychotherapy, patient &/family, 45 minutes, established patient Mar 28, 2017 INSTRUCTIONS MEDICATIONS ADMINISTERED No Known [...] to a fall 09/2016 Hospitalization History [facility] 03/21/17-
--- OUTSIDE RECORDS SUMMARY | 2019-11-07 17:30 | XMS REPORT ---
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 Active 40655986 Problem Delusional disorder F22 Active 50578093 Problem Adjustment disorder with anxious mood F43.22 Active [id number] ALLERGIES No Information ENCOUNTERS Encounter Location Date Diagnosis [place] [id number] [facility] [id number] [address] [place] [phone] Jan, [place] [address] [address] [facility] [id number] [address] [place] [phone] Nov, [place] [address] [facility] [id number] [address] [place] [phone] Oct, Major depressive disorder, r ecurrent episode, 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 ; Delusional disorder F22 and RAD (generalized anxiety disorder) F41.1 [facility] [address] [facility] [id number] [address] [place] [id number] September, Major depressive disorder, r ecurrent episode, 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 [facility] [address] [facility] [id number] [address] [place] [phone] Aug, Major depressive disorder, r ecurrent episode, 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 [place] [address] [id number] [address] [place] [phone] Aug, Major depressive disorder, r ecurrent episode, 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 ; Delusional disorder F22 and RAD (generalized anxiety disorder) F41.1 [facility] [address] [id number] [address] [place] [phone] Jul, Major depressive disorder, r ecurrent episode, 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 [facility] [address] [id number] [address] [place] [phone] Jul, Major depressive disorder, r ecurrent episode, unspecified F33.9 [facility] [address] [id number] [address] [place] [phone] Jun, Major depressive disorder, r ecurrent episode, 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 [facility] [address] [facility] [id number] [address] [place] [phone] May, Major depressive disorder, r ecurrent episode, 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 ; Delusional disorder F22 and RAD (generalized anxiety disorder) F41.1 [facility] [address] [id number] [address] [place] [phone] May, [facility] [address] [id number] [address] [place] [phone] May, Major depressive disorder, r ecurrent episode, 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 [facility] [address] [id number] [address] [place] [phone] May, Major depressive disorder, r ecurrent episode, 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 ; Adjustment disorder with anxious mood F43.22 and Delusional disorder F22 [facility] [address] [id number] [address] [place] [phone] Mar, [facility] [address] [id number] [address] [place] [phone] Mar, Major depressive disorder, r ecurrent episode, 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 [facility] [address] [facility] [id number] [address] [place] [phone] Mar, Major depressive disorder, r ecurrent episode, 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 ; Adjustment disorder with anxious mood F43.22 and Delusional disorder F22 [facility] [address] [facility] [id number] [address] [place] [phone] Mar, Major depressive disorder, r ecurrent episode, 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 [facility] [address] [id number] [address] [place] [phone] Feb, Major depressive disorder, r ecurrent episode, 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 [facility] [address] [facility] [id number] [address] [place] [phone] Feb, Major depressive disorder, r ecurrent episode, 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 ; Adjustment disorder with anxious mood F43.22 and Delusional disorder F22 [facility] [address] [facility] [id number] [address] [place] [phone] Jan, Major depressive disorder, r ecurrent episode, 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 [facility] [address] [facility] [id number] [address] [place] [phone] Jan, Major depressive disorder, r ecurrent episode, 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 [facility] [address] [id number] [address] [place] [phone] Jan, Major depressive disorder, r ecurrent episode, 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 [facility] [address] [id number] [address] [place] [phone] Dec, Major depressive disorder, r ecurrent episode, 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 [facility] [address] [id number] [address] [place] [phone] Dec, Major depressive disorder, r ecurrent episode, 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 ; Adjustment disorder with anxious mood F43.22 and Delusional disorder F22 [facility] [address] [id number] [address] [place] [phone] Dec, Major depressive disorder, r ecurrent episode, 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 [facility] [address] [id number] [address] [place] [phone] Dec, [address] [id number] [place] [phone] Dec, [facility] [address] [id number] [address] [place] [phone] Dec, Major depressive disorder, r ecurrent episode, 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 [place] [address] [facility] [id number] [address] [place] [phone] Nov, Major depressive disorder, r ecurrent episode, 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 [facility] [address] [id number] [address] [place] [phone] Nov, Major depressive disorder, r ecurrent episode, 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 [facility] [address] [facility] [id number] [address] [place] [phone] Nov, Major depressive disorder, r ecurrent episode, 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 and Adjustment disorder with anxious mood F43.22 [facility] [address] [facility] [id number] [address] [place] [phone] September, Major depressive disorder, r ecurrent episode, 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 [facility] [address] [id number] [address] [place] [phone] Aug, Major depressive disorder, r ecurrent episode, 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 [facility] [address] [id number] [address] [place] [phone] Jul, Major depressive disorder, r ecurrent episode, 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 [facility] [address] [id number] [address] [place] [phone] Jul, [facility] [address] [id number] [address] [place] [phone] Jun, Major depressive disorder, r ecurrent episode, 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 and 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 [facility] [address] [id number] [address] [place] [phone] Jun, [facility] [address] [id number] [address] [place] [phone] May, Major depressive disorder, r ecurrent episode, 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 [facility] [address] [id number] [address] [place] [phone] Mar, [facility] [address] [id number] [address] [place] [phone] Mar, [facility] [address] [id number] [address] [place] [phone] Mar, [facility] [address] [id number] [address] [place] [phone] Mar, Major depressive disorder, r ecurrent episode, 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 [facility] [address] [id number] [address] [place] [phone] Feb, [facility] [address] [id number] [address] [place] [phone] Feb, [facility] [address] [id number] [address] [place] [phone] Feb, [facility] [address] [facility] [id number] [address] [place] [phone] Jan, [facility] [address] [facility] [id number] [address] [place] [phone] Jan, Major depressive disorder, r ecurrent episode, 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 [facility] [address] [facility] [id number] [address] [place] [phone] Jan, [facility] [address] [facility] [id number] [address] [place] [phone] Oct, Major depressive disorder, r ecurrent episode, 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 [facility] [address] [facility] [id number] [address] [place] [phone] September, [facility] [address] [facility] [id number] [address] [place] [phone] September, [facility] [address] [facility] [id number] [address] [place] [phone] Aug, Major depressive disorder, r ecurrent episode, 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 PLAN OF CARE Activity Details Follow Up 2 Weeks Reason:depression VITAL SIGNS MEDICATIONS Unknown Medications RESULTS No Results PROCEDURES Procedure Date Ordered Result Body Site [facility] VISIT MENTAL HEALTH ESTAB PT Jul 12, 2017 Psychotherapy, patient &/family, 30 minutes, established patient Jul 12, 2017 INSTRUCTIONS MEDICATIONS ADMINISTERED No Known Medications [...]
--- OUTSIDE RECORDS SUMMARY | 2019-11-07 17:30 | XMS REPORT ---
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 Active 40950833 Problem Delusional disorder F22 Active 84326879 Problem Adjustment disorder with anxious mood F43.22 Active 72971115 ALLERGIES Substance Reaction Event Type Date Status SulfADIAZINE Unknown Drug Allergy May, Active Quinine Sulfate Unknown Drug Allergy May, Active Neosporin Unknown Drug Allergy May, Active Benadryl Unknown Drug Allergy May, Active ENCOUNTERS Encounter Location Date Diagnosis [facility] [address] [facility] [id number] [address] [place] [phone] Jan, [facility] [address] [place] [id number] [address] [place] [phone] Oct, [facility] [address] [id number] [address] [place] [address] Oct, Major depressive disorder, r ecurrent episode, 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 ; Delusional disorder F22 and RAD (generalized anxiety disorder) F41.1 [facility] [address] [facility] [id number] [address] [place] [id number] September, Major depressive disorder, r ecurrent episode, 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 [facility] [address] [id number] [address] [place] [phone] Aug, Major depressive disorder, r ecurrent episode, 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 [facility] [address] [facility] [id number] [address] [place] [address] Aug, Major depressive disorder, r ecurrent episode, 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 ; Delusional disorder F22 and RAD (generalized anxiety disorder) F41.1 [facility] [address] [facility] [id number] [address] [place] [id number] Jul, Major depressive disorder, r ecurrent episode, 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 [facility] [address] [facility] [id number] [address] [place] [phone] Jul, Major depressive disorder, r ecurrent episode, unspecified F33.9 [facility] [address] [facility] [id number] [address] [place] [address] Jun, Major depressive disorder, r ecurrent episode, 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 [facility] [address] [facility] [id number] [address] [place] [address] May, Major depressive disorder, r ecurrent episode, 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 ; Delusional disorder F22 and RAD (generalized anxiety disorder) F41.1 [facility] [address] [facility] [id number] [address] [place] [phone] May, [facility] [address] [facility] [id number] [address] [place] [address] May, Major depressive disorder, r ecurrent episode, 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 [facility] [address] [facility] [id number] [address] [place] [phone] May, Major depressive disorder, r ecurrent episode, 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 ; Adjustment disorder with anxious mood F43.22 and Delusional disorder F22 [facility] [address] [id number] [address] [place] [address] Mar, [facility] [address] [id number] [address] [place] [address] Mar, Major depressive disorder, r ecurrent episode, 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 [facility] [address] [id number] [address] [place] [address] Mar, Major depressive disorder, r ecurrent episode, 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 ; Adjustment disorder with anxious mood F43.22 and Delusional disorder F22 [facility] [address] [id number] [address] [place] [address] Mar, Major depressive disorder, r ecurrent episode, 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 [facility] [address] [facility] [id number] [address] [place] [address] Feb, Major depressive disorder, r ecurrent episode, 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 [facility] [address] [id number] [address] [place] [address] Feb, Major depressive disorder, r ecurrent episode, 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 ; Adjustment disorder with anxious mood F43.22 and Delusional disorder F22 [facility] [address] [id number] [address] [place] [address] Jan, Major depressive disorder, r ecurrent episode, 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 [facility] [address] [id number] [address] [place] [address] Jan, Major depressive disorder, r ecurrent episode, 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 [facility] [address] [id number] [address] [place] [address] Jan, Major depressive disorder, r ecurrent episode, 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 [facility] [address] [id number] [address] [place] [address] Dec, Major depressive disorder, r ecurrent episode, 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 [facility] [address] [id number] [address] [place] [address] Dec, Major depressive disorder, r ecurrent episode, 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 ; Adjustment disorder with anxious mood F43.22 and Delusional disorder F22 [facility] [address] [id number] [address] [place] [address] Dec, Major depressive disorder, r ecurrent episode, 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 [facility] [address] [facility] [id number] [address] [place] [address] Dec, [id number] [place] [address] Dec, [facility] [address] [facility] [id number] [address] [place] [address] Dec, Major depressive disorder, r ecurrent episode, 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 [facility] [address] [id number] [address] [place] [address] Nov, Major depressive disorder, r ecurrent episode, 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 [facility] [address] [facility] [id number] [address] [place] [address] Nov, Major depressive disorder, r ecurrent episode, 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 [facility] [address] [id number] [address] [place] [address] Nov, Major depressive disorder, r ecurrent episode, 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 and Adjustment disorder with anxious mood F43.22 [facility] [address] [facility] [id number] [address] [place] [address] September, Major depressive disorder, r ecurrent episode, 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 [facility] [address] [id number] [address] [place] [address] Aug, Major depressive disorder, r ecurrent episode, 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 [facility] [address] [id number] [address] [place] [address] Jul, Major depressive disorder, r ecurrent episode, 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 [facility] [address] [id number] [address] [place] [address] Jul, [facility] [address] [id number] [address] [place] [phone] Jun, Major depressive disorder, r ecurrent episode, 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 and 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 [facility] [address] [id number] [address] [place] [phone] Jun, [facility] [address] [id number] [address] [place] [phone] May, Major depressive disorder, r ecurrent episode, 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 [facility] [address] [id number] [address] [place] [address] Mar, [facility] [address] [id number] [address] [place] [address] Mar, [facility] [address] [id number] [address] [place] [address] Mar, [facility] [address] [id number] [address] [place] [address] Mar, Major depressive disorder, r ecurrent episode, 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 [facility] [address] [id number] [address] [place] [address] Feb, [facility] [address] [id number] [address] [place] [address] Feb, [facility] [address] [id number] [address] [place] [phone] Feb, [facility] [address] [id number] [address] [place] [address] Jan, [facility] [address] [id number] [address] [place] [address] Jan, Major depressive disorder, r ecurrent episode, 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 [facility] [address] [id number] [address] [place] [address] Jan, [facility] [address] [id number] [address] [place] [id number] Oct, Major depressive disorder, r ecurrent episode, 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 [facility] [address] [id number] [address] [place] [address] September, [facility] [address] [id number] [address] [place] [address] September, [facility] [address] [id number] [address] [place] [address] Aug, Major depressive disorder, r ecurrent episode, 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 [facility] [address] [id number] [address] [place] [phone] Jul, Recur major depre, part emi s F33.41 IMMUNIZATIONS No Known Immunizations SOCIAL HISTORY Never Assessed REASON FOR VISIT SUSAN f/u Ling PLAN OF CARE Activity Details Follow Up 2 Weeks Reason: f/u VITAL SIGNS Height 60 in 2017-05-24 Weight 198.3 lbs 2017-05-24 Heart Rate 104 bpm 2017-05-24 Respiratory Rate 22 2017-05-24 BMI 38.72 kg/m2 2017-05-24 Blood pressure systolic 102 mmHg 2017-05-24 Blood pressure diastolic 60 mmHg 2017-05-24 MEDICATIONS Medication Instructions Dosage Frequency Start Date End Date Duration S jhon Lumigan 0.01 % Ophthalmic Once a day 1 drop into affected eye i n the evening 24h Active Alphagan P 0.15 % Ophthalmic Once a day 1 drop into affected eye 24h Active Lipitor 20mg Orally Once a day 1 tablet 24h Active Levothyroxine Sodium 88 MCG Orally Once a day 1 tablet 24h Active Omeprazole 20 MG Orally Once a day 2 capsules 24h Active Effexor XR 75 MG Orally Once a day 1 capsule with food 24h Active Depakote 125 mg Orally 3 times a day 2 tablet 8h Active Zyprexa 5 mg Orally in the morning and 2 tablets at bedtime 1 tablet Active Lorazepam 0.5 MG Orally daily 1 tablet at bedtime as needed 24h Active RESULTS No Results PROCEDURES Procedure Date Ordered Result Body Site [facility] VISIT ESTABLISHED PATIENT May 24, 2017 [facility] Visit needs to be added with another visit on the [facility] day May 24, 2017 INSTRUCTIONS MEDICATIONS ADMINISTERED No Known [...] due to a fall 09/2016 Hospitalization History [facility] 03/21/17-
--- OUTSIDE RECORDS SUMMARY | 2019-11-07 17:31 | XMS REPORT | Continuity of Care Document ---
Author Organization Unknown Address Unknown Phone Unavailable Allergies Active Description Code Type Severity Reaction Onset Reported/Identified Relationship to Patient Clinical Status Yes BENADRYL MODERATE MODERATE Yes BENADRYL MODERATE OTHER Yes CONTRAST DYE MODERATE MODERATE Yes CONTRAST DYE MODERATE OTHER Yes NEOSPORIN ([id number]) MODERATE MODERATE Yes NEOSPORIN ([id number]) MODERATE OTHER Yes OTHER MODERATE MODERATE Yes OTHER MODERATE UNKNOWN Yes QUININE SULFATE M ODERATE MODERATE Yes QUININE SULFATE M ODERATE OTHER Yes SULFA (SULFONAMIDE ANTIBIOTICS) MODERATE MODERATE Yes SULFA (SULFONAMIDE ANTIBIOTICS) MODERATE OTHER Yes IV CONTRAST IV CONTRAST Unknown N/A 06/25/2014 Yes bacitracin [id number] Drug Allerg y Unknown N/A 08/01/2018 Yes diphenhydramine [id number] D rug Allergy Unknown N/A 08/01/2018 Yes gramicidin D [id number] Drug Allergy Unknown N/A 08/01/2018 Yes neomycin [id number] Drug Allergy Unknown N/A 08/01/2018 Yes polymyxin B [id number] Drug Aller gy Unknown N/A 08/01/2018 Yes quinine [id number] Drug Allergy Unknown N/A 08/01/2018 Yes Sulfa (Sulfonamide Antibiotics) [id number] Drug Allergy Unknown N/A 019 Medications Medication Packaging Start Date St op Date Route Dosage Sig KETOROLAC VIAL INJ 30 MG/CC (TORADOL VIAL) MG 09/28/2016 09/28/2016 ONCE&0144 KETOROLAC VIAL INJ 30 MG/CC (TORADOL VIAL) MG 09/28/2016 09/28/2016 ONCE&0228 OXYCODONE 5MG/APAP 325MG TAB(PERCOCET-5) TAB 09/28/2016 10/05/2016 PRN Q6H VENLAFAXINE XR CAP 75 MG (EFFEXOR XR) MG 09/28/2016 10/04/2016 Daily&0900 ASA 81MG ENTERIC COATED TAB 81 MG (BABY ASPIRIN EC) MG 09/28/2016 10/04/2016 Daily&0900 Vitamin D-3 5,000 units oral capsule UNITS 09/28/2016 10/27/2016 Daily&0900 LEVOTHYROXINE TAB 88 MCG (SYNTHROID) MCG 09/28/2016 10/04/2016 Daily&0900 OXYCODONE 5MG/APAP 325MG TAB(PERCOCET-5) TAB 09/28/2016 10/05/2016 PRN Q6H QUETIAPINE TAB 100 MG (SEROQUEL) MG 09/28/2016 10/04/2016 QHS&2099 LORAZEPAM TAB 0.5 MG (ATIVAN) MG 09/28/2016 10/04/2016 QHS&2100 DIVALPROEX ER TAB 125 MG (DEPAKOTE ER) MG 09/28/2016 10/04/2016 QHS&[address] 20 MG CAPSULE (omeprazole) oral capsule,delayed release(DR/EC) CAP 09/28/201609/14 QHS&2100 MIRTAZAPINE TAB 15 MG (REMERON) MG 09/28/2016 10/04/2016 QHS&2100 LIPITOR 20 MG TABLET (atorvastatin) oral t ablet TAB 09/28/2016 10/04/2016 QHS&2100 LUMIGAN 0.01% EYE DROPS (bim atoprost) opht drops DROP 09/28/2016 10/04/2016 QHS&2100 DIVALPROEX ER TAB 125 MG (DEPAKOTE ER) Dose(s) 09/29/2016 10/05/2016 QAM&0800 DIVALPROEX ER TAB 125 MG (DEPAKOTE ER) MG 09/29/2016 09/29/2016 ONCE&0900 DIVALPROEX ER TAB 125 MG (DEPAKOTE ER) MG 09/29/2016 10/05/2016 QPM&2000 DIVALPROEX ER TAB 125 MG (DEPAKOTE ER) MG 09/30/2016 10/06/2016 QAM&0800 ACETAMINOPHEN ORAL TABLET 325mg(Tylenol) MG 03/31/2017 04/10/2017 PRN EVERY 6 Hour DIVALPROEX SPRINKLE CAP 125 MG (DEPAKOTE SPRINKLE) MG 03/31/2017 04/29/2017 Daily&1700 LOPERAMIDE CAP 2 MG (IMMODIUM) MG 03/31/2017 04/30/2017 PRN QID POLYETHYLENE GLYCOL POWDER U D PWD (MIRALAX 17GM UNIT DOSE PAKS) gm 03/31/2017 04/30/2017 PRN Q3H PROMETHAZINE W/ CODEINE LIQ (PHENERGAN) ml 03/31/2017 04/30/2017 PRN Q6H ALUM/MAG/SIMETH 30CC LIQ (MYLANTA PLUS) cc 03/31/2017 04/30/2017 PRN Q4H DIVALPROEX SPRINKLE CAP 125 MG (DEPAKOTE SPRINKLE) MG 03/31/2017 04/30/2017 BID&0800,2000 SIMVASTATIN TAB 40 MG (ZOCOR) MG 03/31/2017 04/29/2017 QPM&2000 HYDROXYZINE TAB 25 MG (ATARAX) MG 03/31/2017 04/30/2017 PRN TID LACTULOSE SYRUP LIQ 20 GM/30 CC (CHRONULAC SYRUP) GM 03/31/2017 04/30/2017 BID&0800,2000 NYSTATIN ORAL SUSP LIQ (MYCOSTATIN Susp) Dose(s) 03/31/2017 04/13/2017 BID&0800,2000 MILK OF MAGNESIA LIQ ml 03/31/2017 04/07/2017 PRN BID QUETIAPINE TAB 100 MG (SEROQUEL) MG 03/31/2017 04/29/2017 QHS&2100 LORAZEPAM TAB 0.5 MG (ATIVAN) MG 03/31/2017 04/29/2017 QHS&2100 MELATONIN TAB 3 MG (MELATONIN) MG 03/31/2017 04/29/2017 QHS&2100 TRAZODONE TAB 50 MG (DESYREL) MG 03/31/2017 04/30/2017 PRN QHS MIRTAZAPINE TAB 15 MG (REMERON) MG 03/31/2017 04/29/2017 QHS&2100 HYDROXYZINE TAB 25 MG (ATARAX) MG 04/01/2017 04/01/2017 PRN ONCE PANTOPRAZOLE TAB 40 MG (PROTONIX) MG 04/01/2017 04/30/2017 Daily&0900 VENLAFAXINE XR CAP 75 MG (EFFEXOR XR) MG 04/01/2017 04/30/2017 Daily&0900 ASA 81MG ENTERIC COATED TAB 81 MG (BABY ASPIRIN EC) MG 04/01/2017 04/30/2017 Daily&0900 BISACODYL SUPPOS SUP 10 MG (DULCOLAX SUPPO S) MG 04/01/2017 05/01/2017 PRN Daily LEVOTHYROXINE TAB 88 MCG (SYNTHROID) MCG 04/01/2017 04/30/2017 Daily&0900 HYDROXYZINE TAB 25 MG (ATARAX) MG 04/01/2017 04/01/2017 PRN ONCE LURASIDONE TAB 20 MG (LATUDA) MG 04/01/2017 04/01/2017 ONCE&1700 QUETIAPINE TAB 25 MG (SEROQUEL) MG 04/01/2017 04/30/2017 QHS&2100 PANTOPRAZOLE TAB 40 MG (PROTONIX) MG 04/02/2017 05/01/2017 Daily&0600 LEVOTHYROXINE TAB 88 MCG (SYNTHROID) MCG 04/02/2017 05/01/2017 Daily&0600 FLUCONAZOLE TAB 100 MG (DIFLUCAN) MG 04/02/2017 04/06/2017 Daily&0900 LURASIDONE TAB 40 MG (LATUDA) MG 04/02/2017 04/02/2017 ONCE&1700 LURASIDONE TAB 20 MG (LATUDA) MG 04/02/2017 05/01/2017 Daily&1700 PANTOPRAZOLE TAB 40 MG (PROTONIX) MG 04/03/2017 04/03/2017 ONCE&0700 LURASIDONE TAB 40 MG (LATUDA) MG 04/03/2017 05/02/2017 QPM&1700 OLANZAPINE TAB 2.5 MG (ZYPREXA) MG 04/03/2017 04/03/2017 ONCE&1900 OLANZAPINE IM VIAL INJ 10 MG /VIAL (ZYPREXA IM VIAL) MG 04/03/2017 04/03/2017 ONCE&1930 HYDROXYZINE TAB 25 MG (ATARAX) MG 04/04/2017 04/04/2017 PRN ONCE OLANZAPINE TAB 2.5 MG (ZYPREXA) MG 04/04/2017 04/04/2017 ONCE&1733 HYDROXYZINE TAB 25 MG (ATARAX) MG 04/06/2017 05/05/2017 Daily&1200 OLANZAPINE TAB 2.5 MG (ZYPREXA) MG 04/06/2017 04/13/2017 PRN BID OLANZAPINE TAB 2.5 MG (ZYPREXA) MG 04/06/2017 04/07/2017 PRN BID OLANZAPINE TAB 2.5 MG (ZYPREXA) MG 04/07/2017 05/06/2017 Daily&1100 OLANZAPINE TAB 2.5 MG (ZYPREXA) MG 04/09/2017 05/09/2017 PRN Daily FLUCONAZOLE TAB 100 MG (DIFLUCAN) MG 04/13/2017 04/19/2017 Daily&0900 OLANZAPINE TAB 2.5 MG (ZYPREXA) MG 04/13/2017 04/23/2017 PRN BID ACETAMINOPHEN ORAL TABLET 325mg(Tylenol) MG 04/14/2017 04/24/2017 PRN EVERY 6 Hour RISPERIDONE DISSOLVABLE TAB 1 MG (RISPERDAL M-TAB) MG 04/14/2017 05/13/2017 Daily&1400 Miconazole nitrate vagl cream (Monistat) APPLICATORFUL 04/15/2017 04/21/2017 QHS&2100 HYDROXYZINE TAB 25 MG (ATARAX) MG 04/16/2017 04/19/2017 PRN Q6H VENLAFAXINE XR TAB 37.5 MG (EFFEXOR XR) MG 04/16/2017 05/15/2017 Daily&0900 DIVALPROEX SPRINKLE CAP 125 MG (DEPAKOTE SPRINKLE) MG 04/18/2017 04/18/2017 ONCE&1547 DIVALPROEX SPRINKLE CAP 125 MG (DEPAKOTE SPRINKLE) MG 04/18/2017 05/18/2017 TID&0800,1400,2000 HYDROXYZINE TAB 25 MG (ATARAX) MG 04/19/2017 05/19/2017 PRN Q6H VENLAFAXINE XR CAP 75 MG (EFFEXOR XR) MG 04/21/2017 05/20/2017 Daily&0900 HYDROXYZINE TAB 25 MG (ATARAX) MG 04/21/2017 05/21/2017 BID&0800,2000 OLANZAPINE TAB 2.5 MG (ZYPREXA) MG 04/22/2017 05/22/2017 BID&0800,2000 OLANZAPINE TAB 2.5 MG (ZYPREXA) MG 04/27/2017 05/26/2017 QPM&1700 OLANZAPINE TAB 2.5 MG (ZYPREXA) MG 04/28/2017 05/27/2017 QAM&0800 OLANZAPINE TAB 2.5 MG (ZYPREXA) MG 04/28/2017 04/28/2017 ONCE&1313 OLANZAPINE TAB 5 MG (ZYPREXA) MG 04/28/2017 05/27/2017 Daily&1700 OLANZAPINE TAB 5 MG (ZYPREXA) MG 04/30/2017 05/29/2017 QAM&0800 GUAIFENESIN - DM LIQ (ROBITUSSIN DM) ml 04/30/2017 05/07/2017 PRN Q4H ACETAMINOPHEN ORAL TABLET 325mg(Tylenol) MG 04/30/2017 05/10/2017 PRN EVERY 6 Hour SIMVASTATIN TAB 40 MG (ZOCOR) MG 04/30/2017 05/29/2017 QPM&2000 LACTULOSE SYRUP LIQ 20 GM/30 CC (CHRONULAC SYRUP) GM 04/30/2017 05/30/2017 BID&0800,2000 LORAZEPAM TAB 0.5 MG (ATIVAN) Dose(s) 04/30/2017 05/29/2017 QHS&2100 MELATONIN TAB 3 MG (MELATONIN) MG 04/30/2017 05/29/2017 QHS&2100 ASA 81MG ENTERIC COATED TAB 81 MG (BABY ASPIRIN EC) Dose(s) 05/01/2017 05/30/2017 Daily&0900 HALOPERIDOL VIAL INJ 5 MG/CC (HALDOL 1CC V IAL) MG 05/01/2017 05/01/2017 PRN ONCE LORAZEPAM 1CC VIAL INJ 2 MG/CC (ATIVAN VIA L) MG 05/01/2017 05/01/2017 PRN ONCE LEVOTHYROXINE TAB 88 MCG (SYNTHROID) Dose(s) 05/02/2017 05/31/2017 Daily&0600 PANTOPRAZOLE TAB 40 MG (PROTONIX) MG 05/02/2017 05/31/2017 Daily&0900 OLANZAPINE TAB 5 MG (ZYPREXA) MG 05/02/2017 05/31/2017 QPM&1700 OLANZAPINE TAB 10 MG (ZYPREXA) MG 05/07/2017 06/05/2017 QPM&1700 OLANZAPINE DISSOLVABLE TAB 5 MG (ZYPREXA Z YDIS) MG 05/09/2017 05/09/2017 ONCE&1245 OLANZAPINE TAB 2.5 MG (ZYPREXA) MG 05/10/2017 06/09/2017 PRN Daily Problems Date Dx Coded Attending Type Code Diagnosis Diagnosed By 04/14/1129 ARMANI OSBORNE MD Ot S92.002 D UNSP FRACTURE OF LEFT CALCANEUS, SUBS FO 01/01/2010 Ot 246.8 01/01/2010 Ot 272.0 01/01/2010 Ot 272.4 01/01/2010 Ot 285.9 01/01/2010 Ot 296.50 01/01/2010 Ot 401.9 01/01/2010 Ot 486 01/01/2010 Ot 530.81 01/01/2010 Ot 715.36 01/01/2010 Ot 787.91 01/01/2010 Ot 997.39 01/01/2010 Ot V43.65 01/01/2010 Ot V57.1 01/01/2010 Ot V57.21 01/01/2010 Ot V58.49 01/05/2010 Ot 246.8 01/05/2010 Ot 272.0 01/05/2010 Ot 272.4 01/05/2010 Ot 285.9 01/05/2010 Ot 296.50 01/05/2010 Ot 401.9 01/05/2010 Ot 486 01/05/2010 Ot 530.81 01/05/2010 Ot 997.39 01/05/2010 Ot V43.65 01/05/2010 Ot V54.81 01/05/2010 Ot V57.1 01/05/2010 Ot V57.21 03/26/2010 Ot 401.9 03/26/2010 Ot V43.65 03/26/2010 Ot V54.81 03/26/2010 Ot V57.1 12/15/2010 Ot 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 12/15/2010 Ot 276.9 ELEC TROLYT/FLUID DIS NEC 12/15/2010 Ot 296.80 BIP OLAR DISORDER, UNSPECIFIED 12/15/2010 Ot 300.00 ANX IETY STATE NOS 12/15/2010 Ot 414.01 COR ONARY ATHEROSCLEROSIS OF [place] CORON 12/15/2010 Ot 433.10 CAR OTID ARTERY OCCLUSION W O CEREBRAL IN 12/15/2010 Ot 443.9 JOSESITO PH VASCULAR DIS NOS 12/15/2010 Ot 530.81 ESO PHAGEAL REFLUX 12/15/2010 Ot 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 12/15/2010 Ot 715.90 OST EOARTHROS NOS- UNSPEC 12/15/2010 Ot 729.81 SWE LLING OF LIMB 12/15/2010 [address] PAIN NOS 12/15/2010 Ot V43.65 KNE E JOINT REPLACEMENT STATUS 12/15/2010 Ot V58.69 OTH MED,LT,CURRENT USE 10/06/2011 Ot 812.03 FX GR TUBEROS HUMERUS-CL 10/06/2011 Ot 959.2 SHLD R/UPPER ARM INJ NOS 10/06/2011 Ot E000.8 OTH ER EXTERNAL CAUSE STATUS 10/06/2011 Ot E849.0 ACC IDENT IN HOME 10/06/2011 Ot E885.9 FAL L FROM SLIPPING, TRIPPING, OR STUMBLI 07/03/2013 DARIEN FLANAGAN BELL Sophia Ot 300.00 ANXIETY STATE NOS 07/03/2013 BELL LEDEZMA DO Ot 311 DEPRESSIVE DISORDER NEC 07/03/2013 BELL LEDEZMA DO Ot 786.59 CHEST PAIN NEC 06/12/2014 JOSHUA RINCON, ALISHA Montoya Ot V76.12 06/27/2014 Ot 433.10 06/27/2014 Ot V76.12 06/27/2014 Ot 611.71 06/27/2014 Ot V76.12 06/27/2014 RONALD RINCON [facility], ALI FACP CCDS Ot 397.0 06/27/2014 RONALD RINCON FAC, ALI FACP CCDS Ot 414.00 06/27/2014 RONALD RINCON FAC, ALI FACP CCDS Ot 424.0 06/27/2014 RONALD RINCON FAC, ALI FACP CCDS Ot 427.81 06/27/2014 RONALD RINCON FAC, ALI FACP CCDS Ot 786.09 06/27/2014 JOSHUA RINCON, ALISHA Montoya Ot V76.12 06/27/2014 DALI RINCON, FREDDIE Rocha Ot 553. 3 06/27/2014 FREDDIE MCNALLY MD Ot 787. 22 09/13/2014 RONALD RINCON FAC, ALI FACP CCDS Ot 272.4 09/13/2014 RONALD RINCON FACC, ALI FACP CCDS Ot 278.00 09/13/2014 RONALD MD FACC, ALI FACP CCDS Ot 296.80 09/13/2014 RONALD RINCON FACC, ALI FACP CCDS Ot 414.00 09/13/2014 RONALD RINCON FACC, ALI FACP CCDS Ot 416.8 09/13/2014 RONALD RINCON FACC, ALI FACP CCDS Ot 447.9 09/13/2014 RONALD RINCON FACC, ALI FACP CCDS Ot 530.81 09/13/2014 RONALD RINCON FACC, ALI FACP CCDS Ot 715.90 09/13/2014 RONALD RINCON FACC, ALI FACP CCDS Ot 786.09 09/14/2014 EVERTON ISAAC DO Ot 327. 23 OBSTRUCTIVE SLEEP APNEA (ADULT) (PEDIATR 09/14/2014 EVERTON ISAAC DO Ot 401. 9 HYPERTENSION NOS 10/12/2014 DALI RINCON, FREDDIE Rocha Ot 553. 3 10/12/2014 DALI RINCON, FREDDIE Rocha Ot 787. 22 10/15/2014 DALI RINCON, FREDDIE Rocha Ot 553. 3 10/15/2014 DALI RINCON, FREDDIE Rocha Ot 787. 22 11/01/2014 RONALD RINCON FACC, ALI FACP CCDS Ot 272.4 11/01/2014 RONALD RINCON FACC, ALI FACP CCDS Ot 278.00 11/01/2014 RONALD RINCON FACC, ALI FACP CCDS Ot 296.80 11/01/2014 RONALD RINCON FACC, ALI FACP CCDS Ot 414.00 11/01/2014 RONALD RINCON FACC, ALI FACP CCDS Ot 416.8 11/01/2014 RONALD RINCON FACC, ALI FACP CCDS Ot 447.9 11/01/2014 RONALD RINCON FACC, ALI FACP CCDS Ot 530.81 11/01/2014 RONALD RINCON FACC, ALI FACP CCDS Ot 715.90 11/01/2014 RONALD RINCON FACC, ALI FACP CCDS Ot 786.09 12/07/2014 EVERTON ISAAC DO Ot 327. 23 OBSTRUCTIVE SLEEP APNEA (ADULT) (PEDIATR 12/07/2014 EVERTON ISAAC DO Ot 327. 51 PERIODIC LIMB MOVEMENT DISORDER 04/06/2015 Ot 414.00 04/06/2015 Ot 715.36 04/06/2015 Ot 791.9 04/06/2015 Ot V57.1 04/06/2015 Ot V57.21 04/06/2015 Ot V58.61 04/06/2015 Ot V72.63 04/06/2015 Ot V72.81 04/06/2015 Ot V74.8 04/06/2015 Ot 433.10 04/06/2015 Ot V76.12 04/06/2015 Ot 611.71 04/06/2015 Ot V76.12 04/06/2015 RONALD RINCON FACC, ALI FACP CCDS Ot 397.0 04/06/2015 RONALD RINCON FACC, ALI FACP CCDS Ot 414.00 04/06/2015 RONALD RINCON FACC, ALI FACP CCDS Ot 424.0 04/06/2015 RONALD RINCNO FACC, ALI FACP CCDS Ot 427.81 04/06/2015 RONALD RINCON FACC, ALI FACP CCDS Ot 786.09 04/06/2015 JOSHUA RINCON, ALISHA Montoya Ot V76.12 04/06/2015 DALI RINCON, FREDDIE Rocha Ot 553. 3 04/06/2015 DALI RINCON, FREDDIE Rocha Ot 787. 22 04/06/2015 RONALD RINCON FACC, ALI FACP CCDS Ot 272.4 04/06/2015 RONALD RINCON FACC, ALI FACP CCDS Ot 278.00 04/06/2015 RONALD RINCON FACC, ALI FACP CCDS Ot 296.80 04/06/2015 RONALD RINCON FACC, ALI FACP CCDS Ot 414.00 04/06/2015 RONALD RINCON FACC, ALI FACP CCDS Ot 416.8 04/06/2015 RONALD RINCON FACC, ALI FACP CCDS Ot 447.9 04/06/2015 RONALD RINCON FACC, ALI FACP CCDS Ot 530.81 04/06/2015 RONALD RINCON FACC, ALI FACP CCDS Ot 715.90 04/06/2015 RONALD PIZANOC, ALI FACP CCDS Ot 786.09 04/07/2015 BEATRIS DOLAN APRN Ot G47.33 OBSTRUCTIVE SLEEP APNEA (ADULT) (PEDIATR 04/07/2015 EBATRIS DOLAN APRN Ot G47.61 PERIODIC LIMB MOVEMENT DISORDER 05/20/2015 TAYLOR ANDERSON APRN Ot Z12.31 06/03/2016 Ot 611.71 MAS TODYNIA 06/03/2016 Ot V76.12 OTH SCREEN MAMMO- MALIGN NEOPLASM OF [place] 06/03/2016 RONALD PIZANOC, ALI FACP CCDS Ot 397.0 TRICUSPID VALVE DISEASE 06/03/2016 RONALD RINCON FACC, ALI FACP CCDS Ot 414.00 CORON ATHEROSCLER NOS TYPE VESSEL, NATIV 06/03/2016 RONALD PIZANOC, ALI FACP CCDS Ot 424.0 MITRAL VALVE DISORDER 06/03/2016 RONALD RINCON FACC, ALI FACP CCDS Ot 427.81 SINOATRIAL NODE DYSFUNCT 06/03/2016 RONALD RINCON FACC, ALI FACP CCDS Ot 786.09 RESPIRATORY ABNORM NEC 06/03/2016 ALISHA LEWIS MD Ot V76.12 OTH SCREEN MAMMO-MALIGN NEOPLASM OF [place] 06/03/2016 DALI RINCON, FREDDIE Rocha Ot 553. 3 DIAPHRAGMATIC HERNIA 06/03/2016 DALI RINCON, FREDDIE Rocha Ot 787. 22 DYSPHAGIA, OROPHARYNGEAL PHASE 06/03/2016 RONALD PIZANOC, ALI FACP CCDS Ot 272.4 HYPERLIPIDEMIA NEC/NOS 06/03/2016 RONALD PIZANOC, ALI FACP CCDS Ot 278.00 OBESITY, NOS 06/03/2016 RONALD RINCON FACC, ALI FACP CCDS Ot 296.80 BIPOLAR DISORDER, UNSPECIFIED 06/03/2016 RONALD RINCON FACC, ALI FACP CCDS Ot 414.00 CORON ATHEROSCLER NOS TYPE VESSEL, NATIV 06/03/2016 RONALD PIZANOC, ALI FACP CCDS Ot 416.8 CHR PULMON HEART DIS NEC 06/03/2016 RONALD PIZANOC, ALI FACP CCDS Ot 447.9 ARTERIAL DISEASE NOS 06/03/2016 RONALD RINCON FACC, ALI FACP CCDS Ot 530.81 ESOPHAGEAL REFLUX 06/03/2016 RONALD PIZANOC, ALI FACP CCDS Ot 715.90 OSTEOARTHROS NOS-UNSPEC 06/03/2016 RONALD RINCON FACC, ALI FACP CCDS Ot 786.09 RESPIRATORY ABNORM NEC 06/03/2016 TAYLOR ANDERSON APRN Ot Z12.31 ENCNTR SCREEN MAMMOGRAM FOR MALIGNANT NE 06/29/2016 JAIR ZHANG Ot E78.5 HYPERLIPIDEMIA, UNSPECIFIED 06/29/2016 BAIMA, JAIR L FLEET ADMINISTRATIVE ASSISTANT Ot I25.10 ATHSCL HEART DISEASE OF [place] CORONARY 06/29/2016 BAIMA, JAIR L FLEET ADMINISTRATIVE ASSISTANT Ot I27.2 OTHER SECONDARY PULMONARY HYPERTENSION 06/29/2016 BAIMA, JAIR L FLEET ADMINISTRATIVE ASSISTANT Ot R06.09 OTHER FORMS OF DYSPNEA 06/30/2016 BAIMA, JAIR L FLEET ADMINISTRATIVE ASSISTANT Ot E78.5 HYPERLIPIDEMIA, UNSPECIFIED 06/30/2016 BAIMA, JAIR L FLEET ADMINISTRATIVE ASSISTANT Ot I25.10 ATHSCL HEART DISEASE OF [place] CORONARY 06/30/2016 BAIMA, JAIR L FLEET ADMINISTRATIVE ASSISTANT Ot I27.2 OTHER SECONDARY PULMONARY HYPERTENSION 06/30/2016 BAIMA, JAIR L FLEET ADMINISTRATIVE ASSISTANT Ot R06.09 OTHER FORMS OF DYSPNEA 09/28/2016 Rupesh, Bell W 311 DEPRESSIVE DISORDER, NOT ELSEWHERE CLASSIFIED 09/28/2016 Rupesh, Bell W 530.81 ESOPHAGEAL REFLUX 09/28/2016 Rupesh, Bell W 825.0 FRACTURE OF CALCANEUS, CLOSED 09/28/2016 Rupesh, Bell W F32.9 MAJOR DEPRESSIVE DISORDER, SINGLE EPISODE, UNSPECIFIED 09/28/2016 Rupesh, Bell W K21.0 GASTRO-ESOPHAGEAL REFLUX DISEASE WITH ESOPHAGITIS 09/28/2016 Rupesh, Bell W M84.376 STRESS FRACTURE, UNSPECIFIED FOOT 09/29/2016 [facility], Bell W 244.9 09/29/2016 [facility], Bell W 272.4 09/29/2016 [facility], Bell W 296.20 09/29/2016 [facility], Bell W 296.80 09/29/2016 Rupesh, Bell W 530.81 ESOPHAGEAL REFLUX 09/29/2016 Rupesh, Bell A 825.0 09/29/2016 [facility], Bell W 910.0 09/29/2016 Rupesh, Bell W 913.0 09/29/2016 Rupesh, Bell W E03.9 HYPOTHYROIDISM, UNSPECIFIED 09/29/2016 Rupesh, Bell W E78.5 HYPERLIPIDEMIA, UNSPECIFIED 09/29/2016 Rupesh, Bell W F31.9 BIPOLAR DISORDER, UNSPECIFIED 09/29/2016 Rupesh, Bell W F32.9 MAJOR DEPRESSIVE DISORDER, SINGLE EPISODE, UNSPECIFIED 09/29/2016 Rupesh, Bell W K21.9 GASTRO-ESOPHAGEAL REFLUX DISEASE WITHOUT ESOPHAGITIS 09/29/2016 Bell Goddard S00.31XA ABRASION OF NOSE, INITIAL ENCOUNTER 09/29/2016 Bell Goddard S50.812A 09/29/2016 Bell Goddard A S92.002A 10/05/2016 SAL DE OLIVEIRA MD, Ot F41.9 ANXIETY DISORDER, UNSPECIFIED 10/05/2016 SAL DE OLIVEIRA MD Ot R06.00 DYSPNEA, UNSPECIFIED 10/05/2016 SAL DE OLIVEIRA MD Ot R06.02 SHORTNESS OF BREATH 10/05/2016 SAL DE OLIVEIRA MD Ot Z79.82 FOIL STAMP OPERATOR (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) USE OF ASPIRIN 10/05/2016 SAL DE OLIVEIRA MD Ot Z79.899 OTHER RESIDENTIAL (CURRENT) DRUG THERAPY 10/05/2016 SAL DE OLIVEIRA MD Ot Z98.890 OTHER SPECIFIED POSTPROCEDURAL STATES 10/06/2016 SAL DE OLIVEIRA MD, Ot F41.9 ANXIETY DISORDER, UNSPECIFIED 10/06/2016 SAL DE OLIVEIRA MD Ot R06.00 DYSPNEA, UNSPECIFIED 10/06/2016 SAL DE OLIVEIRA MD Ot R06.02 SHORTNESS OF BREATH 10/06/2016 SAL DE OLIVEIRA MD Ot Z79.82 RESIDENTIAL (CURRENT) USE OF ASPIRIN 10/06/2016 SAL DE OLIVEIRA MD Ot Z79.899 OTHER FOIL STAMP OPERATOR (CURRENT) DRUG THERAPY 10/06/2016 SAL DE OLIVEIRA MD Ot Z98.890 OTHER SPECIFIED POSTPROCEDURAL STATES 11/12/2016 ARMANI OSBORNE MD Ot S92.002 D UNSP FRACTURE OF LEFT CALCANEUS, SUBS FO 12/10/2016 ARMANI OSBORNE MD Ot S92.002 D UNSP FRACTURE OF LEFT CALCANEUS, SUBS FO 12/29/2016 ARMANI OSBORNE MD Ot S92.002 D UNSP FRACTURE OF LEFT CALCANEUS, SUBS FO 01/25/2017 JAIR ZHANG Ot G47.33 OBSTRUCTIVE SLEEP APNEA (ADULT) (PEDIATR 01/25/2017 JAIR ZHANG Ot I25.10 ATHSCL HEART DISEASE OF [place] CORONARY 01/25/2017 BAIMA, JAIR L FLEET ADMINISTRATIVE ASSISTANT Ot R00.1 BRADYCARDIA, UNSPECIFIED 01/25/2017 JAIR ZHANG L FLEET ADMINISTRATIVE ASSISTANT Ot R06.09 OTHER FORMS OF DYSPNEA 01/25/2017 JAIR ZHANG FLEET ADMINISTRATIVE ASSISTANT Ot R 42 DIZZINESS AND GIDDINESS 02/03/2017 JAIR ZHANG FLEET ADMINISTRATIVE ASSISTANT Ot G47.33 OBSTRUCTIVE SLEEP APNEA (ADULT) (PEDIATR 02/03/2017 JAIR ZHANG FLEET ADMINISTRATIVE ASSISTANT Ot I25.10 ATHSCL HEART DISEASE OF [place] CORONARY 02/03/2017 JAIR ZHANG FLEET ADMINISTRATIVE ASSISTANT Ot R00.1 BRADYCARDIA, UNSPECIFIED 02/03/2017 JAIR ZHANG FLEET ADMINISTRATIVE ASSISTANT Ot R06.09 OTHER FORMS OF DYSPNEA 02/03/2017 JAIR ZHANG FLEET ADMINISTRATIVE ASSISTANT Ot R 42 DIZZINESS AND GIDDINESS 02/15/2017 DAY BECERRA FLEET ADMINISTRATIVE ASSISTANT Ot R42 DIZZINESS AND GIDDINESS 02/15/2017 DAY BECERRA FLEET ADMINISTRATIVE ASSISTANT Ot R51 HEADACHE 03/29/2017 DAY BECERRA FLEET ADMINISTRATIVE ASSISTANT Ot R51 HEADACHE 04/06/2017 DAY BECERRA FLEET ADMINISTRATIVE ASSISTANT Ot R51 HEADACHE 05/12/2017 Fredy Ortizb W 041.04 05/12/2017 Fredy Ortizb W 244.9 UNSPECIFIED HYPOTHYROIDISM 05/12/2017 Fredy Ortizb W 272.4 OTHER AND UNSPECIFIED HYPERLIPIDEMIA 05/12/2017 Fredy Ortizb W 278.00 OBESITY, UNSPECIFIED 05/12/2017 Fredy Ortizb A 297.1 05/12/2017 Fredy Ortizb W 300.02 05/12/2017 Fredy Ortizb W 530.81 ESOPHAGEAL REFLUX 05/12/2017 Angel, Eh W 599.0 05/12/2017 Angel, Eh W B95.2 ENTEROCOCCUS THE CAUSE OF DISEASES CLASSIFIED ELSEWHERE 05/12/2017 Fredy Ortizb W E03.9 HYPOTHYROIDISM, UNSPECIFIED 05/12/2017 AngelFredy thomasb W E66.9 OBESITY, UNSPECIFIED 05/12/2017 AngelFredy thomasb W E78.5 HYPERLIPIDEMIA, UNSPECIFIED 05/12/2017 Fredy Ortizb A F22 DELUSIONAL DISORDERS 05/12/2017 AngelEh thomas W F41.1 GENERALIZED ANXIETY DISORDER 05/12/2017 Eh Ortiz W K21.9 GASTRO-ESOPHAGEAL REFLUX DISEASE WITHOUT ESOPHAGITIS 05/12/2017 AngelEh thomas W N39.0 URINARY TRACT INFECTION, SITE NOT SPECIFIED 10/11/2017 Ot V76.12 OTH SCREEN MAMMO- MALIGN NEOPLASM OF [place] 10/11/2017 RONALD RINCON FACC, ALI FACP CCDS Ot 397.0 TRICUSPID VALVE DISEASE 10/11/2017 RONALD RINCON FACC, ALI FACP CCDS Ot 414.00 CORON ATHEROSCLER NOS TYPE VESSEL, NATIV 10/11/2017 RONALD RINCON FACC, ALI FACP CCDS Ot 424.0 MITRAL VALVE DISORDER 10/11/2017 RONALD PIZANOC, ALI FACP CCDS Ot 427.81 SINOATRIAL NODE DYSFUNCT 10/11/2017 RONALD PIZANOC, ALI FACP CCDS Ot 786.09 RESPIRATORY ABNORM NEC 10/11/2017 ALISHA LEWIS MD Ot V76.12 OTH SCREEN MAMMO-MALIGN NEOPLASM OF [place] 10/11/2017 DALI RINCON, FREDDIE Rocha Ot 553. 3 DIAPHRAGMATIC HERNIA 10/11/2017 DALI RINCON, FREDDIE Rocha Ot 787. 22 DYSPHAGIA, OROPHARYNGEAL PHASE 10/11/2017 RONALD PIZANOC, ALI FACP CCDS Ot 272.4 HYPERLIPIDEMIA NEC/NOS 10/11/2017 RONALD RINCON FACC, ALI FACP CCDS Ot 278.00 OBESITY, NOS 10/11/2017 RONALD RINCON FACC, ALI FACP CCDS Ot 296.80 BIPOLAR DISORDER, UNSPECIFIED 10/11/2017 RONALD RINCON FACC, ALI FACP CCDS Ot 414.00 CORON ATHEROSCLER NOS TYPE VESSEL, NATIV 10/11/2017 RONALD PIZANOC, ALI FACP CCDS Ot 416.8 CHR PULMON HEART DIS NEC 10/11/2017 RONALD PIZANOC, ALI FACP CCDS Ot 447.9 ARTERIAL DISEASE NOS 10/11/2017 RONALD PIZANOC, ALI FACP CCDS Ot 530.81 ESOPHAGEAL REFLUX 10/11/2017 RONALD PIZANOC, ALI FACP CCDS Ot 715.90 OSTEOARTHROS NOS-UNSPEC 10/11/2017 RONALD RINCON FACC, ALI FACP CCDS Ot 786.09 RESPIRATORY ABNORM NEC 10/11/2017 TAYLOR ANDERSON HOP WEIGHER Ot Z12.31 ENCNTR SCREEN MAMMOGRAM FOR MALIGNANT NE 10/11/2017 BAIMA, JAIR L FLEET ADMINISTRATIVE ASSISTANT Ot E78.5 HYPERLIPIDEMIA, UNSPECIFIED 10/11/2017 BAIMA, JAIR L FLEET ADMINISTRATIVE ASSISTANT Ot I25.10 ATHSCL HEART DISEASE OF [place] CORONARY 10/11/2017 BAIMA, JAIR L FLEET ADMINISTRATIVE ASSISTANT Ot I27.2 OTHER SECONDARY PULMONARY HYPERTENSION 10/11/2017 BAIMA, JAIR L FLEET ADMINISTRATIVE ASSISTANT Ot R06.09 OTHER FORMS OF DYSPNEA 10/11/2017 BAIMA, JAIR L FLEET ADMINISTRATIVE ASSISTANT Ot G47.33 OBSTRUCTIVE SLEEP APNEA (ADULT) (PEDIATR 10/11/2017 BAIMA, JAIR L FLEET ADMINISTRATIVE ASSISTANT Ot I25.10 ATHSCL HEART DISEASE OF [place] CORONARY 10/11/2017 BAIMA, JAIR L FLEET ADMINISTRATIVE ASSISTANT Ot R00.1 BRADYCARDIA, UNSPECIFIED 10/11/2017 BAIMA, JAIR L FLEET ADMINISTRATIVE ASSISTANT Ot R06.09 OTHER FORMS OF DYSPNEA 10/11/2017 BAIMA, JAIR L FLEET ADMINISTRATIVE ASSISTANT Ot R 42 DIZZINESS AND GIDDINESS 10/11/2017 DAY BECERRA FLEET ADMINISTRATIVE ASSISTANT Ot R42 DIZZINESS AND GIDDINESS 10/11/2017 DAY BECERRA FLEET ADMINISTRATIVE ASSISTANT Ot R51 HEADACHE 10/11/2017 DAY BECERRA FLEET ADMINISTRATIVE ASSISTANT Ot R51 HEADACHE 10/11/2017 DAY BECERRA FLEET ADMINISTRATIVE ASSISTANT Ot Z12.31 ENCNTR SCREEN MAMMOGRAM FOR MALIGNANT NE 10/12/2017 DAY BECERRA FLEET ADMINISTRATIVE ASSISTANT Ot Z12.31 ENCNTR SCREEN MAMMOGRAM FOR MALIGNANT NE 10/13/2017 DAY BECERRA FLEET ADMINISTRATIVE ASSISTANT Ot R92.0 MAMMOGRAPHIC MICROCALCIFICATION FOUND ON 10/13/2017 DAY BECERRA FLEET ADMINISTRATIVE ASSISTANT Ot Z12.31 ENCNTR SCREEN MAMMOGRAM FOR MALIGNANT NE 10/18/2017 RONALD RINCON FACC, SUSSY FACP CCDS Ot E66.9 OBESITY, UNSPECIFIED 10/18/2017 RONALD RINCON FACC, SUSSY FACP CCDS Ot E78.5 HYPERLIPIDEMIA, UNSPECIFIED 10/18/2017 RONALD RINCON FACC, SUSSY FACP CCDS Ot F31.9 BIPOLAR DISORDER, UNSPECIFIED 10/18/2017 RONALD RINCON FACC, SUSSY FACP CCDS Ot G47.30 SLEEP APNEA, UNSPECIFIED 10/18/2017 RONALD RINCON FACC, ALI FACP CCDS Ot I25.10 ATHSCL HEART DISEASE OF [place] CORONARY 10/18/2017 RONALD RINCON FACC, ALI FACP CCDS Ot I27.20 PULMONARY HYPERTENSION, UNSPECIFIED 10/18/2017 RONALD RINCON FACC, ALI FACP CCDS Ot I50.31 ACUTE DIASTOLIC (CONGESTIVE) HEART FAILU 10/18/2017 RONALD RINCON FACC, ALI FACP CCDS Ot I73.9 PERIPHERAL VASCULAR DISEASE, UNSPECIFIED 10/18/2017 RONALD RINCON FACC, ALI FACP CCDS Ot I77.89 OTHER SPECIFIED DISORDERS OF ARTERIES AN 10/18/2017 RONALD RINCON FACC, ALI FACP CCDS Ot K21.9 GASTRO-ESOPHAGEAL REFLUX DISEASE WITHOUT 10/18/2017 RONALD RINCON FACC, ALI FACP CCDS Ot K58.9 IRRITABLE BOWEL SYNDROME WITHOUT DIARRHE 10/18/2017 RONALD RINCON FACC, ALI FACP CCDS Ot Z68.41 BODY MASS INDEX (BMI) 40.0-44.9, ADULT 10/18/2017 RONALD RINCON FACC, ALI FACP CCDS Ot Z96.653 PRESENCE OF ARTIFICIAL KNEE JOINT, BILAT 10/21/2017 RONALD RINCON FACC, ALI FACP CCDS Ot E66.9 OBESITY, UNSPECIFIED 10/21/2017 RONALD RINCON FACC, ALI FACP CCDS Ot E78.5 HYPERLIPIDEMIA, UNSPECIFIED 10/21/2017 RONALD RINCON FACC, ALI FACP CCDS Ot F31.9 BIPOLAR DISORDER, UNSPECIFIED 10/21/2017 RONALD RINCON FACC, ALI FACP CCDS Ot G47.30 SLEEP APNEA, UNSPECIFIED 10/21/2017 RONALD RINCON FACC, ALI FACP CCDS Ot I25.10 ATHSCL HEART DISEASE OF [place] CORONARY 10/21/2017 RONALD RINCON FACC, ALI FACP CCDS Ot I27.20 PULMONARY HYPERTENSION, UNSPECIFIED 10/21/2017 RONALD RINCON FACC, ALI FACP CCDS Ot I50.31 ACUTE DIASTOLIC (CONGESTIVE) HEART FAILU 10/21/2017 RONALD RINCON FACC, ALI FACP CCDS Ot I73.9 PERIPHERAL VASCULAR DISEASE, UNSPECIFIED 10/21/2017 RONALD RINCON FACC, ALI FACP CCDS Ot I77.89 OTHER SPECIFIED DISORDERS OF ARTERIES AN 10/21/2017 RONALD RINCON FACC, SUSSY RUBIN CCDS Ot K21.9 GASTRO-ESOPHAGEAL REFLUX DISEASE WITHOUT 10/21/2017 RONALD RINCON FACC, [facility]SY [facility] CCDS Ot K58.9 IRRITABLE BOWEL SYNDROME WITHOUT DIARRHE 10/21/2017 RONALD RINCON FACC, SUSSY [facility] CCDS Ot Z68.41 BODY MASS INDEX (BMI) 40.0-44.9, ADULT 10/21/2017 RONALD RINCON FACC, SUSSY [facility] CCDS Ot Z96.653 PRESENCE OF ARTIFICIAL KNEE JOINT, BILAT 11/01/2017 DAY BECERRA FLEET ADMINISTRATIVE ASSISTANT Ot R92.0 MAMMOGRAPHIC MICROCALCIFICATION FOUND ON 11/01/2017 DAY BECERRA FLEET ADMINISTRATIVE ASSISTANT Ot Z12.31 ENCNTR SCREEN MAMMOGRAM FOR MALIGNANT NE 11/08/2017 TAYLOR ANDERSON HOP WEIGHER Ot R92.8 OTH ABN AND INCONCLUSIVE FINDINGS ON DX 11/08/2017 TAYLOR ANDERSON HOP WEIGHER Ot R92.8 OTH ABN AND INCONCLUSIVE FINDINGS ON DX 11/17/2017 JAIR ZHANG FLEET ADMINISTRATIVE ASSISTANT Ot G47.33 OBSTRUCTIVE SLEEP APNEA (ADULT) (PEDIATR 11/17/2017 JAIR ZHANG FLEET ADMINISTRATIVE ASSISTANT Ot I25.10 ATHSCL HEART DISEASE OF [place] CORONARY 11/17/2017 JAIR ZHANG FLEET ADMINISTRATIVE ASSISTANT Ot R00.1 BRADYCARDIA, UNSPECIFIED 11/17/2017 JAIR ZHANG FLEET ADMINISTRATIVE ASSISTANT Ot R06.09 OTHER FORMS OF DYSPNEA 11/17/2017 JAIR ZHANG FLEET ADMINISTRATIVE ASSISTANT Ot R 42 DIZZINESS AND GIDDINESS 11/17/2017 DAY BECERRA FLEET ADMINISTRATIVE ASSISTANT Ot R42 DIZZINESS AND GIDDINESS 11/17/2017 DAY BECERRA FLEET ADMINISTRATIVE ASSISTANT Ot R51 HEADACHE 11/17/2017 DAY BECERRA FLEET ADMINISTRATIVE ASSISTANT Ot R51 HEADACHE 11/17/2017 DAY BECERRA FLEET ADMINISTRATIVE ASSISTANT Ot Z12.31 ENCNTR SCREEN MAMMOGRAM FOR MALIGNANT NE 11/17/2017 DAY BECERRA FLEET ADMINISTRATIVE ASSISTANT Ot R92.0 MAMMOGRAPHIC MICROCALCIFICATION FOUND ON 11/17/2017 DAY BECERRA FLEET ADMINISTRATIVE ASSISTANT Ot Z12.31 ENCNTR SCREEN MAMMOGRAM FOR MALIGNANT NE 11/17/2017 DAY BECERRA FLEET ADMINISTRATIVE ASSISTANT Ot R92.0 MAMMOGRAPHIC MICROCALCIFICATION FOUND ON 11/17/2017 TAYLOR ANDERSON HOP WEIGHER Ot R92.8 OTH ABN AND INCONCLUSIVE FINDINGS ON DX 11/17/2017 TAYLOR ANDERSON HOP WEIGHER Ot R92.8 OTH ABN AND INCONCLUSIVE FINDINGS ON DX 11/21/2017 TAYLOR ANDERSON HOP WEIGHER Ot D24.1 BENIGN NEOPLASM OF RIGHT BREAST 11/22/2017 DAY BECERRA FLEET ADMINISTRATIVE ASSISTANT Ot R92.0 MAMMOGRAPHIC MICROCALCIFICATION FOUND ON 11/30/2017 CAMACHO BECERRAIE Jay FLEET ADMINISTRATIVE ASSISTANT Ot R92.0 MAMMOGRAPHIC MICROCALCIFICATION FOUND ON 12/07/2017 TAYLOR ANDERSON HOP WEIGHER Ot D24.1 BENIGN NEOPLASM OF RIGHT BREAST 01/30/2018 RONALD RINCON FACC, ALI FACP CCDS Ot 397.0 TRICUSPID VALVE DISEASE 01/30/2018 RONALD PIZANOC, ALI FACP CCDS Ot 414.00 CORON ATHEROSCLER NOS TYPE VESSEL, NATIV 01/30/2018 RONALD RINCON FACC, ALI FACP CCDS Ot 424.0 MITRAL VALVE DISORDER 01/30/2018 RONALD PIZANOC, ALI FACP CCDS Ot 427.81 SINOATRIAL NODE DYSFUNCT 01/30/2018 RONALD RINCON FACC, ALI FACP CCDS Ot 786.09 RESPIRATORY ABNORM NEC 01/30/2018 JOSHUA RINCON, ALISHA Montoya Ot V76.12 OTH SCREEN MAMMO-MALIGN NEOPLASM OF GLADYS 01/30/2018 DALI RINCON, FREDDIE Rocha Ot 553. 3 DIAPHRAGMATIC HERNIA 01/30/2018 DALI RINCON, FREDDIE Rocha Ot 787. 22 DYSPHAGIA, OROPHARYNGEAL PHASE 01/30/2018 RONALD PIZANOC, ALI FACP CCDS Ot 272.4 HYPERLIPIDEMIA NEC/NOS 01/30/2018 RONALD PIZANOC, ALI FACP CCDS Ot 278.00 OBESITY, NOS 01/30/2018 RONALD RINCON FACC, ALI FACP CCDS Ot 296.80 BIPOLAR DISORDER, UNSPECIFIED 01/30/2018 RONALD PIZANOC, ALI FACP CCDS Ot 414.00 CORON ATHEROSCLER NOS TYPE VESSEL, NATIV 01/30/2018 RONALD PIZANOC, ALI FACP CCDS Ot 416.8 CHR PULMON HEART DIS NEC 01/30/2018 RONALD PIZANOC, ALI FACP CCDS Ot 447.9 ARTERIAL DISEASE NOS 01/30/2018 RONALD MD FACC, ALI FACP CCDS Ot 530.81 ESOPHAGEAL REFLUX 01/30/2018 RONALD RINCON [facility], ALI FACP CCDS Ot 715.90 OSTEOARTHROS NOS-UNSPEC 01/30/2018 RONALD RINCON FAC, ALI FACP CCDS Ot 786.09 RESPIRATORY ABNORM NEC 01/30/2018 TAYLOR ANDERSON APRN Ot Z12.31 ENCNTR SCREEN MAMMOGRAM FOR MALIGNANT NE 01/30/2018 BAIMA, JAIR L FLEET ADMINISTRATIVE ASSISTANT Ot E78.5 HYPERLIPIDEMIA, UNSPECIFIED 01/30/2018 BAIMA, JAIR L FLEET ADMINISTRATIVE ASSISTANT Ot I25.10 ATHSCL HEART DISEASE OF [place] CORONARY 01/30/2018 BAIMA, JAIR L FLEET ADMINISTRATIVE ASSISTANT Ot I27.2 OTHER SECONDARY PULMONARY HYPERTENSION 01/30/2018 BAIMA, JAIR L FLEET ADMINISTRATIVE ASSISTANT Ot R06.09 OTHER FORMS OF DYSPNEA 01/30/2018 BAIMA, JAIR L FLEET ADMINISTRATIVE ASSISTANT Ot G47.33 OBSTRUCTIVE SLEEP APNEA (ADULT) (PEDIATR 01/30/2018 BAIMA, JAIR L FLEET ADMINISTRATIVE ASSISTANT Ot I25.10 ATHSCL HEART DISEASE OF [place] CORONARY 01/30/2018 BAIMA, JAIR L FLEET ADMINISTRATIVE ASSISTANT Ot R00.1 BRADYCARDIA, UNSPECIFIED 01/30/2018 BAIMA, JAIR L FLEET ADMINISTRATIVE ASSISTANT Ot R06.09 OTHER FORMS OF DYSPNEA 01/30/2018 BAIMA, JAIR L FLEET ADMINISTRATIVE ASSISTANT Ot R 42 DIZZINESS AND GIDDINESS 01/30/2018 DAY BECERRA FLEET ADMINISTRATIVE ASSISTANT Ot R42 DIZZINESS AND GIDDINESS 01/30/2018 DAY BECERRA FLEET ADMINISTRATIVE ASSISTANT Ot R51 HEADACHE 01/30/2018 DAY BECERRA FLEET ADMINISTRATIVE ASSISTANT Ot R51 HEADACHE 01/30/2018 DAY BECERRA FLEET ADMINISTRATIVE ASSISTANT Ot Z12.31 ENCNTR SCREEN MAMMOGRAM FOR MALIGNANT NE 01/30/2018 DAY BECERRA FLEET ADMINISTRATIVE ASSISTANT Ot R92.0 MAMMOGRAPHIC MICROCALCIFICATION FOUND ON 01/30/2018 DAY BECERRA FLEET ADMINISTRATIVE ASSISTANT Ot Z12.31 ENCNTR SCREEN MAMMOGRAM FOR MALIGNANT NE 01/30/2018 DAY BECERRA FLEET ADMINISTRATIVE ASSISTANT Ot R92.0 MAMMOGRAPHIC MICROCALCIFICATION FOUND ON 01/30/2018 TAYLOR ANDERSON HOP WEIGHER Ot D24.1 BENIGN NEOPLASM OF RIGHT BREAST 01/30/2018 BEATRIS DOLAN HOP WEIGHER Ot R22.43 LOCALIZED SWELLING, MASS AND LUMP, LOWER 01/30/2018 SANJANA DOLANINE Alex HOP WEIGHER Ot G47.33 OBSTRUCTIVE SLEEP APNEA (ADULT) (PEDIATR 01/30/2018 SANJANA DOLANINE E HOP WEIGHER Ot J30.9 ALLERGIC RHINITIS, UNSPECIFIED 01/30/2018 SANJANA DOLANINE E HOP WEIGHER Ot K44.9 DIAPHRAGMATIC HERNIA WITHOUT OBSTRUCTION 01/30/2018 SANJANA DOLANINE E HOP WEIGHER Ot M79.89 OTHER SPECIFIED SOFT TISSUE DISORDERS 01/30/2018 SANJANA DOLANINE E HOP WEIGHER Ot R06.09 OTHER FORMS OF DYSPNEA 01/31/2018 SANJANA DOLANINE E HOP WEIGHER Ot R22.43 LOCALIZED SWELLING, MASS AND LUMP, LOWER 02/02/2018 MAGDALENOSANJANA SNYDERINE E HOP WEIGHER Ot G47.10 HYPERSOMNIA, UNSPECIFIED 02/02/2018 MAGDALENOBEATRIS SNYDER E HOP WEIGHER Ot G47.33 OBSTRUCTIVE SLEEP APNEA (ADULT) (PEDIATR 02/02/2018 BEATRIS DOLAN HOP WEIGHER Ot G47.61 PERIODIC LIMB MOVEMENT DISORDER 02/02/2018 BEATRIS DOLAN E HOP WEIGHER Ot J30.9 ALLERGIC RHINITIS, UNSPECIFIED 02/02/2018 SANJANA DOLANINE E HOP WEIGHER Ot J44.9 CHRONIC OBSTRUCTIVE PULMONARY DISEASE, U 02/02/2018 SANJANA DOLANINE E HOP WEIGHER Ot R06.09 OTHER FORMS OF DYSPNEA 02/02/2018 BEATRIS DOLAN HOP WEIGHER Ot R06.83 SNORING 02/02/2018 BEATRIS DOLAN E HOP WEIGHER Ot R09.02 HYPOXEMIA 02/03/2018 BEATRIS DOLAN E HOP WEIGHER Ot M79.89 OTHER SPECIFIED SOFT TISSUE DISORDERS 02/08/2018 BEATRIS DOLAN HOP WEIGHER Ot G47.10 HYPERSOMNIA, UNSPECIFIED 02/08/2018 BEATRIS DOLAN HOP WEIGHER Ot G47.33 OBSTRUCTIVE SLEEP APNEA (ADULT) (PEDIATR 02/08/2018 SANJANA DOLANINE E HOP WEIGHER Ot G47.61 PERIODIC LIMB MOVEMENT DISORDER 02/08/2018 SANJANA DOLANINE E HOP WEIGHER Ot J30.9 ALLERGIC RHINITIS, UNSPECIFIED 02/08/2018 SANJANA DOLANINE E HOP WEIGHER Ot J44.9 CHRONIC OBSTRUCTIVE PULMONARY DISEASE, U 02/08/2018 SANJANA DOLANINE E HOP WEIGHER Ot R06.09 OTHER FORMS OF DYSPNEA 02/08/2018 SANJANA DOLANINE E HOP WEIGHER Ot R06.83 SNORING 02/08/2018 MAGDALENO, BEATRIS E HOP WEIGHER Ot R09.02 HYPOXEMIA 02/08/2018 MAGDALENO, BEATRIS E HOP WEIGHER Ot R06.09 OTHER FORMS OF DYSPNEA 02/15/2018 MAGDALENO BEATRIS Johnson HOP WEIGHER Ot J30.9 ALLERGIC RHINITIS, UNSPECIFIED 02/15/2018 MAGDALENO, BEATRIS Johnson HOP WEIGHER Ot K44.9 DIAPHRAGMATIC HERNIA WITHOUT OBSTRUCTION 02/15/2018 SANJANA DOLANINE E HOP WEIGHER Ot M79.89 OTHER SPECIFIED SOFT TISSUE DISORDERS 02/15/2018 MAGDALENO, BEATRIS E HOP WEIGHER Ot R06.09 OTHER FORMS OF DYSPNEA 02/22/2018 SANJANA DOLANINE E HOP WEIGHER Ot M79.89 OTHER SPECIFIED SOFT TISSUE DISORDERS 02/22/2018 BEATRIS DOLAN HOP WEIGHER Ot J30.9 ALLERGIC RHINITIS, UNSPECIFIED 02/22/2018 MAGDALENO, BEATRIS Johnson HOP WEIGHER Ot K44.9 DIAPHRAGMATIC HERNIA WITHOUT OBSTRUCTION 02/22/2018 BEATRIS DOLAN HOP WEIGHER Ot M79.89 OTHER SPECIFIED SOFT TISSUE DISORDERS 02/22/2018 BEATRIS DOLAN HOP WEIGHER Ot R06.09 OTHER FORMS OF DYSPNEA 03/02/2018 MAGDALENO BEATRIS Alex HOP WEIGHER Ot M79.89 OTHER SPECIFIED SOFT TISSUE DISORDERS 03/03/2018 BEATRIS DOLAN E HOP WEIGHER Ot G47.10 HYPERSOMNIA, UNSPECIFIED 03/03/2018 BEATRIS DOLAN E HOP WEIGHER Ot G47.34 IDIO SLEEP RELATED NONOBSTRUCTIVE ALVEOL 03/03/2018 BEATRIS DOLAN HOP WEIGHER Ot J30.9 ALLERGIC RHINITIS, UNSPECIFIED 03/03/2018 BEATRIS DOLAN HOP WEIGHER Ot R06.09 OTHER FORMS OF DYSPNEA 03/30/2018 BEATRIS DOLAN HOP WEIGHER Ot G47.10 HYPERSOMNIA, UNSPECIFIED 03/30/2018 BEATRIS DOLAN HOP WEIGHER Ot J30.9 ALLERGIC RHINITIS, UNSPECIFIED 03/30/2018 SANJANA DOLANINE E HOP WEIGHER Ot R06.09 OTHER FORMS OF DYSPNEA 03/30/2018 SANJANA DOLANINE E HOP WEIGHER Ot R09.02 HYPOXEMIA 03/30/2018 SANJANA DOLANINE E HOP WEIGHER Ot R94.2 ABNORMAL RESULTS OF PULMONARY FUNCTION S 04/18/2018 SANJANA DOLANINE E HOP WEIGHER Ot G47.10 HYPERSOMNIA, UNSPECIFIED 04/18/2018 MAGDALENO, BEATRIS E HOP WEIGHER Ot G47.34 IDIO SLEEP RELATED NONOBSTRUCTIVE ALVEOL 04/18/2018 MAGDALENO, BEATRIS E HOP WEIGHER Ot J30.9 ALLERGIC RHINITIS, UNSPECIFIED 04/18/2018 MAGDALENO, BEATRIS E HOP WEIGHER Ot R06.09 OTHER FORMS OF DYSPNEA 04/20/2018 MAGDALENO, BEATRIS E HOP WEIGHER Ot G47.10 HYPERSOMNIA, UNSPECIFIED 04/20/2018 MAGDALENO, BEATRIS E HOP WEIGHER Ot G47.34 IDIO SLEEP RELATED NONOBSTRUCTIVE ALVEOL 04/20/2018 MAGDALENO, BEATRIS E HOP WEIGHER Ot J30.9 ALLERGIC RHINITIS, UNSPECIFIED 04/20/2018 MAGDALENO, BEATRIS E HOP WEIGHER Ot R06.09 OTHER FORMS OF DYSPNEA 06/12/2018 MAUREEN, TAMMY R HOP WEIGHER Ot R35.0 FREQUENCY OF MICTURITION 06/12/2018 MAUREEN, TAMMY R HOP WEIGHER Ot R39.15 URGENCY OF URINATION 07/04/2018 MAUREEN TAMMY R HOP WEIGHER Ot R92.8 OTH ABN AND INCONCLUSIVE FINDINGS ON DX 07/20/2018 MAUREEN, TAMMY R HOP WEIGHER Ot R92.8 OTH ABN AND INCONCLUSIVE FINDINGS ON DX 07/28/2018 MAUREEN, TAMMY R HOP WEIGHER Ot R92.8 OTH ABN AND INCONCLUSIVE FINDINGS ON DX 07/28/2018 MAUREEN TAMMY R HOP WEIGHER Ot Z98.890 OTHER SPECIFIED POSTPROCEDURAL STATES 07/30/2018 MAUREEN, TAMMY R HOP WEIGHER Ot R35.0 FREQUENCY OF MICTURITION 07/30/2018 MAUREEN, TAMMY R HOP WEIGHER Ot R39.15 URGENCY OF URINATION 07/31/2018 MAUREEN, TAMMY R HOP WEIGHER Ot R35.0 FREQUENCY OF MICTURITION 07/31/2018 MAUREEN, TAMMY R HOP WEIGHER Ot R39.15 URGENCY OF URINATION 08/01/2018 MAUREEN, TAMMY R HOP WEIGHER Ot R35.0 FREQUENCY OF MICTURITION 08/01/2018 MAUREEN, TAMMY R HOP WEIGHER Ot R39.15 URGENCY OF URINATION 08/01/2018 JUAN JOSÉ MCKEON DO Ot Z01.818 ENCOUNTER FOR OTHER PREPROCEDURAL EXAMIN 08/15/2018 MAUREEN TAMMY R HOP WEIGHER Ot R92.8 OTH ABN AND INCONCLUSIVE FINDINGS ON DX 08/15/2018 SOBEIDA REDDYN R HOP WEIGHER Ot Z98.890 OTHER SPECIFIED POSTPROCEDURAL STATES 08/25/2018 TAMMY REDDY R HOP WEIGHER Ot R92.8 OTH ABN AND INCONCLUSIVE FINDINGS ON DX 08/25/2018 MAUREENTAMMY R HOP WEIGHER Ot Z98.890 OTHER SPECIFIED POSTPROCEDURAL STATES 09/12/2018 BEATRIS DOLAN HOP WEIGHER Ot J98.4 OTHER DISORDERS OF LUNG 09/12/2018 BEATRIS DOLAN HOP WEIGHER Ot R09.02 HYPOXEMIA 09/12/2018 BEATRIS DOLAN HOP WEIGHER Ot R94.2 ABNORMAL RESULTS OF PULMONARY FUNCTION S 09/12/2018 BEATRIS DOLAN HOP WEIGHER Ot Z99.81 DEPENDENCE ON SUPPLEMENTAL OXYGEN 09/14/2018 BEATRIS DOLAN HOP WEIGHER Ot J98.4 OTHER DISORDERS OF LUNG 09/14/2018 BEATRIS DOLAN HOP WEIGHER Ot R09.02 HYPOXEMIA 09/14/2018 BEATRIS DOLAN HOP WEIGHER Ot R94.2 ABNORMAL RESULTS OF PULMONARY FUNCTION S 09/14/2018 BEATRIS DOLAN HOP WEIGHER Ot Z99.81 DEPENDENCE ON SUPPLEMENTAL OXYGEN 09/15/2018 EVERTON ISAAC DO Ot G47. 10 HYPERSOMNIA, UNSPECIFIED 09/15/2018 EVERTON ISAAC DO Ot G47. 34 IDIO SLEEP RELATED NONOBSTRUCTIVE ALVEOL 09/15/2018 EVERTON ISAAC DO Ot I51. 7 CARDIOMEGALY 09/15/2018 EVERTON ISAAC DO Ot J30. 9 ALLERGIC RHINITIS, UNSPECIFIED 09/15/2018 EVERTON ISAAC DO Ot J98. 4 OTHER DISORDERS OF LUNG 09/15/2018 EVERTON ISAAC DO Ot K44. 9 DIAPHRAGMATIC HERNIA WITHOUT OBSTRUCTION 09/15/2018 EVERTON ISAAC DO Ot R94. 2 ABNORMAL RESULTS OF PULMONARY FUNCTION S 09/19/2018 BEATRIS DOLAN HOP WEIGHER Ot J98.4 OTHER DISORDERS OF LUNG 09/19/2018 BEATRIS DOLAN HOP WEIGHER Ot R09.02 HYPOXEMIA 09/19/2018 BEATRIS DOLAN HOP WEIGHER Ot R94.2 ABNORMAL RESULTS OF PULMONARY FUNCTION S 09/19/2018 BEATRIS DOLAN HOP WEIGHER Ot Z99.81 DEPENDENCE ON SUPPLEMENTAL OXYGEN 09/21/2018 BEATRIS DOLAN HOP WEIGHER Ot J98.4 OTHER DISORDERS OF LUNG 09/21/2018 MAGDALENOSANJANA SNYDERINE Alex HOP WEIGHER Ot R09.02 HYPOXEMIA 09/21/2018 MAGDALENOSANJANA SNYDERINE E HOP WEIGHER Ot R94.2 ABNORMAL RESULTS OF PULMONARY FUNCTION S 09/21/2018 SANJANA DOLANINE Alex HOP WEIGHER Ot Z99.81 DEPENDENCE ON SUPPLEMENTAL OXYGEN 09/26/2018 MAGDALENOSANJANA SNYDERINE Alex HOP WEIGHER Ot J98.4 OTHER DISORDERS OF LUNG 09/26/2018 MAGDALENOSANJANA SNYDERINE E HOP WEIGHER Ot R09.02 HYPOXEMIA 09/26/2018 MAGDALENOSANJANA SNYDERINE Alex HOP WEIGHER Ot R94.2 ABNORMAL RESULTS OF PULMONARY FUNCTION S 09/26/2018 MAGDALENOSANJANA SNYDERINE Alex HOP WEIGHER Ot Z99.81 DEPENDENCE ON SUPPLEMENTAL OXYGEN 09/28/2018 MAGDALENOSANJANA SNYDERINE Alex HOP WEIGHER Ot J98.4 OTHER DISORDERS OF LUNG 09/28/2018 MAGDALENOSANJANA SNYDERINE Alex HOP WEIGHER Ot R09.02 HYPOXEMIA 09/28/2018 MAGDALENOSANJANA SNYDERINE Alex HOP WEIGHER Ot R94.2 ABNORMAL RESULTS OF PULMONARY FUNCTION S 09/28/2018 MAGDALENOSANJANA SNYDERINE Alex HOP WEIGHER Ot Z99.81 DEPENDENCE ON SUPPLEMENTAL OXYGEN 10/03/2018 MAGDALENOSANJANA SNYDERINE Alex HOP WEIGHER Ot J98.4 OTHER DISORDERS OF LUNG 10/03/2018 MAGDALENOSANJANA SNYDERINE Alex HOP WEIGHER Ot R09.02 HYPOXEMIA 10/03/2018 MAGDALENOSANJANA SNYDERINE Alex HOP WEIGHER Ot R94.2 ABNORMAL RESULTS OF PULMONARY FUNCTION S 10/03/2018 MAGDALENOSANJANA SNYDERINE Alex HOP WEIGHER Ot Z99.81 DEPENDENCE ON SUPPLEMENTAL OXYGEN 10/03/2018 MAGDALENOSANJANABEATRIS Alex HOP WEIGHER Ot J98.4 OTHER DISORDERS OF LUNG 10/03/2018 MAGDALENOSANJANA SNYDERINE Alex HOP WEIGHER Ot R09.02 HYPOXEMIA 10/03/2018 MAGDALENOSANJANABEATRIS Alex HOP WEIGHER Ot R94.2 ABNORMAL RESULTS OF PULMONARY FUNCTION S 10/03/2018 MAGDALENOSANJANABEATRIS Alex HOP WEIGHER Ot Z99.81 DEPENDENCE ON SUPPLEMENTAL OXYGEN 10/05/2018 EVERTON ISAAC DO Ot G47. 10 HYPERSOMNIA, UNSPECIFIED 10/05/2018 EVERTON ISAAC DO Ot G47. 34 IDIO SLEEP RELATED NONOBSTRUCTIVE ALVEOL 10/05/2018 EVERTON ISAAC DO Ot I51. 7 CARDIOMEGALY 10/05/2018 EVERTON ISAAC DO Ot J30. 9 ALLERGIC RHINITIS, UNSPECIFIED 10/05/2018 EVERTON ISAAC DO Ot J98. 4 OTHER DISORDERS OF LUNG 10/05/2018 EVERTON ISAAC DO M Ot K44. 9 DIAPHRAGMATIC HERNIA WITHOUT OBSTRUCTION 10/05/2018 EVERTON ISAAC DO M Ot R94. 2 ABNORMAL RESULTS OF PULMONARY FUNCTION S 10/05/2018 BEATRIS DOLAN HOP WEIGHER Ot J98.4 OTHER DISORDERS OF LUNG 10/05/2018 BEATRIS DOLAN HOP WEIGHER Ot R09.02 HYPOXEMIA 10/05/2018 BEATRIS DOLAN HOP WEIGHER Ot R94.2 ABNORMAL RESULTS OF PULMONARY FUNCTION S 10/05/2018 BEATRIS DOLAN HOP WEIGHER Ot Z99.81 DEPENDENCE ON SUPPLEMENTAL OXYGEN 10/10/2018 BEATRIS DOLAN HOP WEIGHER Ot J98.4 OTHER DISORDERS OF LUNG 10/10/2018 BEATRIS DOLAN HOP WEIGHER Ot R09.02 HYPOXEMIA 10/10/2018 BEATRIS DOLAN HOP WEIGHER Ot R94.2 ABNORMAL RESULTS OF PULMONARY FUNCTION S 10/10/2018 BEATRIS DOLAN HOP WEIGHER Ot Z99.81 DEPENDENCE ON SUPPLEMENTAL OXYGEN 10/12/2018 EVERTON ISAAC DO Ot G47. 10 HYPERSOMNIA, UNSPECIFIED 10/12/2018 EVERTON ISAAC DO Ot G47. 34 IDIO SLEEP RELATED NONOBSTRUCTIVE ALVEOL 10/12/2018 EVERTON ISAAC DO Ot I51. 7 CARDIOMEGALY 10/12/2018 EVERTON ISAAC DO Ot J30. 9 ALLERGIC RHINITIS, UNSPECIFIED 10/12/2018 EVERTON ISAAC DO Ot J98. 4 OTHER DISORDERS OF LUNG 10/12/2018 EVERTON ISAAC DO Ot K44. 9 DIAPHRAGMATIC HERNIA WITHOUT OBSTRUCTION 10/12/2018 EVERTON ISAAC DO Ot R94. 2 ABNORMAL RESULTS OF PULMONARY FUNCTION S 10/12/2018 BEATRIS DOLAN HOP WEIGHER Ot J98.4 OTHER DISORDERS OF LUNG 10/12/2018 BEATRIS DOLAN HOP WEIGHER Ot R09.02 HYPOXEMIA 10/12/2018 BEATRIS DOLAN HOP WEIGHER Ot R94.2 ABNORMAL RESULTS OF PULMONARY FUNCTION S 10/12/2018 BEATRIS DOLAN HOP WEIGHER Ot Z99.81 DEPENDENCE ON SUPPLEMENTAL OXYGEN 10/12/2018 MAGDALENO BEATRIS E HOP WEIGHER Ot J98.4 OTHER DISORDERS OF LUNG 10/12/2018 MAGDALENO, BEATRIS E HOP WEIGHER Ot R09.02 HYPOXEMIA 10/12/2018 MAGDALENO, BEATRIS E HOP WEIGHER Ot R94.2 ABNORMAL RESULTS OF PULMONARY FUNCTION S 10/12/2018 MAGDALENO BEATRIS E HOP WEIGHER Ot Z99.81 DEPENDENCE ON SUPPLEMENTAL OXYGEN 10/17/2018 MAGDALENO BEATRIS E HOP WEIGHER Ot J98.4 OTHER DISORDERS OF LUNG 10/17/2018 MAGDALENO, BEATRIS E HOP WEIGHER Ot R09.02 HYPOXEMIA 10/17/2018 MAGDALENO, BEATRIS E HOP WEIGHER Ot R94.2 ABNORMAL RESULTS OF PULMONARY FUNCTION S 10/17/2018 MAGDALENO, BEATRIS E HOP WEIGHER Ot Z99.81 DEPENDENCE ON SUPPLEMENTAL OXYGEN 10/17/2018 MAGDALENO, BEATRIS E HOP WEIGHER Ot J98.4 OTHER DISORDERS OF LUNG 10/17/2018 MAGDALENO, BEATRIS E HOP WEIGHER Ot R09.02 HYPOXEMIA 10/17/2018 MAGDALENO, BEATRIS E HOP WEIGHER Ot R94.2 ABNORMAL RESULTS OF PULMONARY FUNCTION S 10/17/2018 MAGDALENO BEATRIS E HOP WEIGHER Ot Z99.81 DEPENDENCE ON SUPPLEMENTAL OXYGEN 10/19/2018 MAGDALENO, BEATRIS E HOP WEIGHER Ot J98.4 OTHER DISORDERS OF LUNG 10/19/2018 MAGDALENO, BEATRIS E HOP WEIGHER Ot R09.02 HYPOXEMIA 10/19/2018 MAGDALENO, BEATRIS E HOP WEIGHER Ot R94.2 ABNORMAL RESULTS OF PULMONARY FUNCTION S 10/19/2018 MAGDALENO BEATRIS E HOP WEIGHER Ot Z99.81 DEPENDENCE ON SUPPLEMENTAL OXYGEN 10/24/2018 MAGDALENOSANJANABEATRIS E HOP WEIGHER Ot J98.4 OTHER DISORDERS OF LUNG 10/24/2018 MAGDALENO, BEATRIS E HOP WEIGHER Ot R09.02 HYPOXEMIA 10/24/2018 MAGDALENO, BEATRIS E HOP WEIGHER Ot R94.2 ABNORMAL RESULTS OF PULMONARY FUNCTION S 10/24/2018 MAGDALENO, BEATRIS E HOP WEIGHER Ot Z99.81 DEPENDENCE ON SUPPLEMENTAL OXYGEN 10/26/2018 MAGADLENO, BEATRIS E HOP WEIGHER Ot J98.4 OTHER DISORDERS OF LUNG 10/26/2018 MAGDALENO, BEATRIS E HOP WEIGHER Ot R09.02 HYPOXEMIA 10/26/2018 MAGDALENO, BEATRIS E HOP WEIGHER Ot R94.2 ABNORMAL RESULTS OF PULMONARY FUNCTION S 10/26/2018 MAGDALENO BEATRIS E HOP WEIGHER Ot Z99.81 DEPENDENCE ON SUPPLEMENTAL OXYGEN 10/31/2018 MAGDALENO, BEATRIS E HOP WEIGHER Ot J98.4 OTHER DISORDERS OF LUNG 10/31/2018 MAGDALENO, BEATRIS E HOP WEIGHER Ot R09.02 HYPOXEMIA 10/31/2018 MAGDALENO, BEATRIS E HOP WEIGHER Ot R94.2 ABNORMAL RESULTS OF PULMONARY FUNCTION S 10/31/2018 MAGDALENO BEATRIS E HOP WEIGHER Ot Z99.81 DEPENDENCE ON SUPPLEMENTAL OXYGEN 11/02/2018 MAGDALENO, BEATRIS E HOP WEIGHER Ot J98.4 OTHER DISORDERS OF LUNG 11/02/2018 MAGDALENO, BEATRIS E HOP WEIGHER Ot R09.02 HYPOXEMIA 11/02/2018 MAGDALENO, BEATRIS E HOP WEIGHER Ot R94.2 ABNORMAL RESULTS OF PULMONARY FUNCTION S 11/02/2018 MAGDALENO BEATRIS E HOP WEIGHER Ot Z99.81 DEPENDENCE ON SUPPLEMENTAL OXYGEN 11/07/2018 MAGDALENO BEATRIS E HOP WEIGHER Ot J98.4 OTHER DISORDERS OF LUNG 11/07/2018 MAGDALENO BEATRIS E HOP WEIGHER Ot R09.02 HYPOXEMIA 11/07/2018 MAGDALENO, BEATRIS E HOP WEIGHER Ot R94.2 ABNORMAL RESULTS OF PULMONARY FUNCTION S 11/07/2018 MAGDALENO BEATRIS E HOP WEIGHER Ot Z99.81 DEPENDENCE ON SUPPLEMENTAL OXYGEN 11/14/2018 MAGDALENOSANJANABEATRIS E HOP WEIGHER Ot J98.4 OTHER DISORDERS OF LUNG 11/14/2018 MAGDALENOSANJANABEATRIS E HOP WEIGHER Ot R09.02 HYPOXEMIA 11/14/2018 MAGDALENO, BEATRIS E HOP WEIGHER Ot R94.2 ABNORMAL RESULTS OF PULMONARY FUNCTION S 11/14/2018 MAGDALENOSANJANABEATRIS E HOP WEIGHER Ot Z99.81 DEPENDENCE ON SUPPLEMENTAL OXYGEN 11/19/2018 MAGDALENO BEATRIS E HOP WEIGHER Ot J98.4 OTHER DISORDERS OF LUNG 11/19/2018 MAGDALENO BEATRIS E HOP WEIGHER Ot R09.02 HYPOXEMIA 11/19/2018 MAGDALENO, BEATRIS E HOP WEIGHER Ot R94.2 ABNORMAL RESULTS OF PULMONARY FUNCTION S 11/19/2018 MAGDALENO BEATRIS E HOP WEIGHER Ot Z99.81 DEPENDENCE ON SUPPLEMENTAL OXYGEN 11/21/2018 MAGDALENO BEATRIS E HOP WEIGHER Ot J98.4 OTHER DISORDERS OF LUNG 11/21/2018 MAGDALENO BEATRIS E HOP WEIGHER Ot R09.02 HYPOXEMIA 11/21/2018 BEATRIS DOLAN HOP WEIGHER Ot R94.2 ABNORMAL RESULTS OF PULMONARY FUNCTION S 11/21/2018 BEATRIS DOLAN HOP WEIGHER Ot Z99.81 DEPENDENCE ON SUPPLEMENTAL OXYGEN 11/23/2018 BEATRIS DOLAN HOP WEIGHER Ot J98.4 OTHER DISORDERS OF LUNG 11/23/2018 BEATRIS DOLAN HOP WEIGHER Ot R09.02 HYPOXEMIA 11/23/2018 BEATRIS DOLAN HOP WEIGHER Ot R94.2 ABNORMAL RESULTS OF PULMONARY FUNCTION S 11/23/2018 BEATRIS DOLAN HOP WEIGHER Ot Z99.81 DEPENDENCE ON SUPPLEMENTAL OXYGEN 11/27/2018 ANJUM RINCON, ARMANI Avila Ot R92.8 OTH ABN AND INCONCLUSIVE FINDINGS ON DX 11/27/2018 ANJUM RINCON, ARMANI Avila Ot Z98.8 90 OTHER SPECIFIED POSTPROCEDURAL STATES 11/28/2018 BEATRIS DOLAN HOP WEIGHER Ot J98.4 OTHER DISORDERS OF LUNG 11/28/2018 BEATRIS DOLAN HOP WEIGHER Ot R09.02 HYPOXEMIA 11/28/2018 BEATRIS DOLAN HOP WEIGHER Ot R94.2 ABNORMAL RESULTS OF PULMONARY FUNCTION S 11/28/2018 BEATRIS DOLAN HOP WEIGHER Ot Z99.81 DEPENDENCE ON SUPPLEMENTAL OXYGEN 11/30/2018 BEATRIS DOLAN HOP WEIGHER Ot J98.4 OTHER DISORDERS OF LUNG 11/30/2018 BEATRIS DOLAN HOP WEIGHER Ot R09.02 HYPOXEMIA 11/30/2018 SANJANA DOLANINE Alex HOP WEIGHER Ot R94.2 ABNORMAL RESULTS OF PULMONARY FUNCTION S 11/30/2018 BEATRIS DOLAN HOP WEIGHER Ot Z99.81 DEPENDENCE ON SUPPLEMENTAL OXYGEN 12/05/2018 BEATRIS DOLAN HOP WEIGHER Ot J98.4 OTHER DISORDERS OF LUNG 12/05/2018 BEATRIS DOLAN HOP WEIGHER Ot R09.02 HYPOXEMIA 12/05/2018 SANJANA DOLANINE Alex HOP WEIGHER Ot R94.2 ABNORMAL RESULTS OF PULMONARY FUNCTION S 12/05/2018 BEATRIS DOLAN HOP WEIGHER Ot Z99.81 DEPENDENCE ON SUPPLEMENTAL OXYGEN 12/05/2018 SANJANA DOLANINE Alex HOP WEIGHER Ot J98.4 OTHER DISORDERS OF LUNG 12/05/2018 SANJANA DOLANINE Alex HOP WEIGHER Ot R09.02 HYPOXEMIA 12/05/2018 SANJANA DOLANINE Alex HOP WEIGHER Ot R94.2 ABNORMAL RESULTS OF PULMONARY FUNCTION S 12/05/2018 BEATRIS DOLAN HOP WEIGHER Ot Z99.81 DEPENDENCE ON SUPPLEMENTAL OXYGEN 12/07/2018 BEATRIS DOLAN HOP WEIGHER Ot J98.4 OTHER DISORDERS OF LUNG 12/07/2018 BEATRIS DOLAN HOP WEIGHER Ot R09.02 HYPOXEMIA 12/07/2018 BEATRIS DOLAN HOP WEIGHER Ot R94.2 ABNORMAL RESULTS OF PULMONARY FUNCTION S 12/07/2018 BEATRIS DOLAN HOP WEIGHER Ot Z99.81 DEPENDENCE ON SUPPLEMENTAL OXYGEN 12/12/2018 BETARIS DOLAN HOP WEIGHER Ot J98.4 OTHER DISORDERS OF LUNG 12/12/2018 BEATRIS DOLAN HOP WEIGHER Ot R09.02 HYPOXEMIA 12/12/2018 BEATRIS DOLAN HOP WEIGHER Ot R94.2 ABNORMAL RESULTS OF PULMONARY FUNCTION S 12/12/2018 BEATRIS DOLAN HOP WEIGHER Ot Z99.81 DEPENDENCE ON SUPPLEMENTAL OXYGEN 12/13/2018 ARMANI VALERO MD Ot R92.8 OTH ABN AND INCONCLUSIVE FINDINGS ON DX 12/13/2018 ARMANI VALERO MD Ot Z98.8 90 OTHER SPECIFIED POSTPROCEDURAL STATES 12/29/2018 ARMANI VALERO MD Ot R92.8 OTH ABN AND INCONCLUSIVE FINDINGS ON DX 12/29/2018 ARMANI VALERO MD Ot Z98.8 90 OTHER SPECIFIED POSTPROCEDURAL STATES 02/26/2019 BEATRIS DOLAN HOP WEIGHER Ot J98.4 OTHER DISORDERS OF LUNG 02/26/2019 BEATRIS DOLAN HOP WEIGHER Ot R09.02 HYPOXEMIA 02/26/2019 BEATRIS DOLAN HOP WEIGHER Ot R94.2 ABNORMAL RESULTS OF PULMONARY FUNCTION S 02/26/2019 BEATRIS DOLAN HOP WEIGHER Ot Z99.81 DEPENDENCE ON SUPPLEMENTAL OXYGEN 02/27/2019 BEATRIS DOLAN HOP WEIGHER Ot J98.4 OTHER DISORDERS OF LUNG 02/27/2019 BEATRIS DOLAN HOP WEIGHER Ot R09.02 HYPOXEMIA 02/27/2019 BEATRIS DOLAN HOP WEIGHER Ot R94.2 ABNORMAL RESULTS OF PULMONARY FUNCTION S 02/27/2019 BAETRIS DOLAN HOP WEIGHER Ot Z99.81 DEPENDENCE ON SUPPLEMENTAL OXYGEN 03/02/2019 LOREEPATSY ADAMS L HOP WEIGHER Ot M79.605 PAIN IN LEFT LEG 03/02/2019 LOREECORINA ADAMSN L HOP WEIGHER Ot R60 .0 LOCALIZED EDEMA 03/20/2019 LOREE, PATSY L HOP WEIGHER Ot M79.605 PAIN IN LEFT LEG 03/20/2019 LOREE, PATSY L HOP WEIGHER Ot R60 .0 LOCALIZED EDEMA 03/30/2019 LOREE, PATSY L HOP WEIGHER Ot M79.605 PAIN IN LEFT LEG 03/30/2019 LOREE, PATSY L HOP WEIGHER Ot R60 .0 LOCALIZED EDEMA 04/13/2019 TA THORNTON Ot K57.90 DVRTCLOS OF INTEST, PART UNSP, W/O PERF 04/13/2019 TA THORNTON Ot M54.5 LOW BACK PAIN 04/13/2019 TA THORNTON Ot R31.9 HEMATURIA, UNSPECIFIED 04/13/2019 TA THORNTON Ot R35.0 FREQUENCY OF MICTURITION 04/16/2019 TA THORNTON Ot K57.90 DVRTCLOS OF INTEST, PART UNSP, W/O PERF 04/16/2019 TA THORNTON Ot M54.5 LOW BACK PAIN 04/16/2019 TA THORNTON Ot R31.9 HEMATURIA, UNSPECIFIED 04/16/2019 TA THORNTON Ot R35.0 FREQUENCY OF MICTURITION 05/11/2019 TA THORNTON Ot K57.90 DVRTCLOS OF INTEST, PART UNSP, W/O PERF 05/11/2019 TA THORNTON Ot M54.5 LOW BACK PAIN 05/11/2019 TA THORNTON Ot R31.9 HEMATURIA, UNSPECIFIED 05/11/2019 TA THORNTON Ot R35.0 FREQUENCY OF MICTURITION 05/17/2019 TA THORNTON Ot K57.90 DVRTCLOS OF INTEST, PART UNSP, W/O PERF 05/17/2019 TA THORNTON Ot M54.5 LOW BACK PAIN 05/17/2019 TA THORNTON L Ot R31.9 HEMATURIA, UNSPECIFIED 05/17/2019 TA THORNTON Ot R35.0 FREQUENCY OF MICTURITION Procedures There is no data. Results Test Result Range Complete blood count (CBC) with automate d white blood cell (WBC) differential - 10/05/16 07:35 Blood leukocytes automated count (number/volume) 13.0 10*3/uL 4.3-11.0 Blood erythrocytes automated count (number/volume) 4.79 10*6/uL 4.35-5.85 Venous blood hemoglobin measurement (mass/volume) 13.1 g/dL 11.5-16.0 Blood hematocrit (volume fraction) 41 % 35-52 Automated erythrocyte mean corpuscular volume 85 [ foz_us] 80-99 Automated erythrocyte mean corpuscular h emoglobin (mass per erythrocyte) 27 pg 25-34 Automated erythrocyte mean corpuscular h emoglobin concentration measurement (mass/volume) 32 g/dL 32-36 Automated erythrocyte distribution width ratio 15. 6 % 10.0- 14.5 Automated blood platelet count (count/volume) 346 10*3/uL 130-400 Automated blood platelet mean volume measurement 9.8 [foz_us] 7.4-10.4 Automated blood neutrophils/100 leukocytes 71 % 42-75 Automated blood lymphocytes/100 leukocytes 17 % 12-44 Blood monocytes/100 leukocytes 9 % 0-12 Automated blood eosinophils/100 leukocytes 3 % 0-10 Automated blood basophils/100 leukocytes 1 % 0-10 Blood neutrophils automated count (number/volume) 9.2 10*3 1.8-7.8 Blood lymphocytes automated count (number/volume) 2.2 10*3 1.0-4.0 Blood monocytes automated count (number/volume) 1. 1 10*3 0.0-1.0 Automated eosinophil count 0.4 10*3/uL 0 .0-0.3 Automated blood basophil count (count/volume) 0.1 10*3/uL 0.0-0.1 Comprehensive metabolic panel - 10/05/16 07:35 Serum or plasma sodium measurement (moles/volume) 140 mmol/L 135-145 Serum or plasma potassium measurement (moles/volume) 3.9 mmol/L 3.6-5.0 Serum or plasma chloride measurement (moles/volume) 105 mmol/L 98-107 Carbon dioxide 25 mmol/L 21-32 Serum or plasma anion gap determination (moles/volume) 10 mmol/L 5-14 Serum or plasma urea nitrogen measurement (mass/volume ) 12 mg/dL 7-18 Serum or plasma creatinine measurement (mass/volume) 0.72 mg/dL 0.60-1.30 Serum or plasma urea nitrogen/creatinine mass ratio 17 NRG Serum or plasma creatinine measurement w ith calculation of estimated glomerular filtration rate > NRG Serum or plasma glucose measurement (mass/volume) 102 mg/dL 70-105 Serum or plasma calcium measurement (mass/volume) 9.0 mg/dL 8.5-10.1 Serum or plasma total bilirubin measurement (mass/volu me) 0.6 mg/dL 0.1-1.0 Serum or plasma alkaline phosphatase javon surement (enzymatic activity/volume) 84 U/L 40-136 Serum or plasma aspartate aminotransfera se measurement (enzymatic activity/volume) 18 U/L 5-34 Serum or plasma alanine aminotransferase measurement (enzymatic activity/volume) 17 U/L 0-55 Serum or plasma protein measurement (mass/volume) 6.4 g/dL 6.4-8.2 Serum or plasma albumin measurement (mass/volume) 3.3 g/dL 3.2-4.5 Magnesium - 10/05/16 07:35 Magnesium 2.1 mg/dL 1.8-2.4 Serum or plasma troponin i.cardiac measu rement (mass/volume) - 10/05/16 07:35 Serum or plasma troponin i.cardiac measurement (mass/v olume) < ng/mL <0.30 Serum or plasma C reactive protein measu rement (mass/volume) - 10/05/16 07:35 Serum or plasma C reactive protein measurement (mass/v olume) 1.12 mg/dL 0.00-0.50 Complete urinalysis with reflex to cultu re - 10/05/16 07:35 Urine color determination YELLOW NRG Urine clarity determination CLEAR NR G Urine pH measurement by test strip 8 5-9 Specific gravity of urine by test strip 1.015 1.016-1.022 Urine protein assay by test strip, semi-quantitative NEGATIVE NEGATIVE Urine glucose detection by automated test strip NE GATIVE NEGATIVE Erythrocytes detection in urine sediment by light micr oscopy NEGATIVE NEGATIVE Urine ketones detection by automated test strip NE GATIVE NEGATIVE Urine nitrite detection by test strip NEGATIVE NEGATIVE Urine total bilirubin detection by test strip NEGA TIVE NEGATIVE Urine urobilinogen measurement by automated test strip (mass/volume) NORMAL NORMAL Urine leukocyte esterase detection by dipstick NEG ATIVE NEGATIVE Automated urine sediment erythrocyte cou nt by microscopy (number/high power field) NONE NRG Automated urine sediment leukocyte count by microscopy (number/high power field) NONE NRG Bacteria detection in urine sediment by light microsco py NEGATIVE NRG Squamous epithelial cells detection in u rine sediment by light microscopy RARE NRG Crystals detection in urine sediment by light microsco py NONE NRG Casts detection in urine sediment by light microscopy NONE NRG Mucus detection in urine sediment by light microscopy NEGATIVE NRG Complete urinalysis with reflex to culture NO NRG Thyroid Stimulating Hormone - 03/31/17 1 4:17 TSH 0.99 mIU/mL 0.32-5.00 VIT B-12 - 03/31/17 14:17 Vitamin B12 432.00 pg/mL 213.00-816.00 Vitamin D, 25 OH - 03/31/17 14:17 Vitamin D, 25 OH 43.70 ng/mL 25.00-100.0 0 Lipid Panel - 04/01/17 05:10 C/HDL 3.2 3.7-6.7 Cholesterol 159 mg/dL 100-240 HDL 50 mg/dL 30-85 LDL-Calculated 97 mg/dL 0-100 Trig 61 mg/dL 35-160 VLDL 12 mg/dL 0-42 Valproic Acid - 04/06/17 05:30 Valproic Acid 46.0 ug/mL 55.0-105.0 Valproic Acid - 04/16/17 05:00 Valproic Acid 44.1 ug/mL 55.0-105.0 Valproic Acid - 04/23/17 05:25 Valproic Acid 45.4 ug/mL 55.0-105.0 Urinalysis - 04/26/17 12:45 Icotest N/A Negative Urine Volume Urine Volume <1 ml, Microsco pic exam was performed on uncentrifuged urine sample. Urine Yeast No Yeast present Urine-Appearance Clear Clear Urine-Bacteria 1+ Urine-Bilirubin Negative Negative Urine-Blood 1+ Negative Urine-Color Yellow Colorless-Lt. [place] ow Urine-Epithelial Cells 0-5/HPF Urine-Glucose Negative Negative Urine-Ketones Negative Negative Urine-Leukocytes Trace Negative Urine-Nitrite Negative Negative Urine-Other Culture to follow Urine-pH 7.0 5-8.5 Urine-Protein Negative Negative Urine-RBC Rare/HPF Urine-Specific Hye 1.010 1.000-1 .030 Urine-WBC 2-5/HPF Urobilinogen 0.2 E.U./dL 0.2-1.0 Urine Culture - 04/26/17 12:45 PRELIM CULTURE RESULTS 10,000-20,000 Enteroc occus [id number] / ID to Follow MEDIA PLATED Setup at 12:58 on 04/26/2017 CULTURE SOURCE straight cath Sensi - 04/26/17 12:45 FINAL CULTURE RESULTS Enterococcus faecalis ([place] te 1) Ampicillin/Sulbactam <=8/4 Ampicillin <=2 Amoxicillin/K Clavulanate <=4/2 Ceftriaxone >32 Clindamycin >4 Cefoxitin Screen N/R Ciprofloxacin <=1 Daptomycin <=0.5 Erythromycin 2 Nitrofurantoin <=32 Gentamicin 8 Gentamicin Synergy Screen <=500 Inducible Clindamycin N/R Levofloxacin <=1 Linezolid 2 Moxifloxacin <=0.5 Oxacillin 2 Penicillin 2 Rifampin <=1 Streptomycin Synergy <=1000 Synercid N/R Trimethoprim/ Sulfamethoxazole <=0.5/9.5 Tetracycline >8 Vancomycin 1 Comprehensive Metabolic Panel - 05/02/17 04:54 Albumin 3.3 g/dL 3.6-5.1 ALP 86 U/L 35-130 ALT 10 U/L 6-45 Anion Gap 14 6-14 AST 13 U/L 2-40 BUN 12 mg/dL 5-25 Calcium 8.4 mg/dL 8.3-10.4 Chloride 106 mmol/L 95-114 CO2 25 mEq/L 22-33 Creat 0.73 mg/dL 0.50-1.50 eGFR 77 mL/min/1.73m2 >59 Globulin 2.5 g/dL 2.3-3.5 Glucose 87 mg/dL 70-110 Osmo 290 280-295 Potassium 4.1 mmol/L 3.5-5.3 Sodium 141 mmol/L 134-148 TBil 0.2 mg/dL 0.2-1.2 TP 5.8 g/dL 6.0-8.3 Automated blood complete blood count (he mogram) panel - 10/18/17 07:38 Blood leukocytes automated count (number/volume) 7.8 10*3/uL 4.3-11.0 Blood erythrocytes automated count (number/volume) 5.80 10*6/uL 4.35-5.85 Venous blood hemoglobin measurement (mass/volume) 15.5 g/dL 11.5-16.0 Blood hematocrit (volume fraction) 46 % 35-52 Automated erythrocyte mean corpuscular volume 79 [ foz_us] 80-99 Automated erythrocyte mean corpuscular h emoglobin (mass per erythrocyte) 27 pg 25-34 Automated erythrocyte mean corpuscular h emoglobin concentration measurement (mass/volume) 34 g/dL 32-36 Automated erythrocyte distribution width ratio 16. 7 % 10.0- 14.5 Automated blood platelet count (count/volume) 329 10*3/uL 130-400 Automated blood platelet mean volume measurement 10.8 [foz_us] 7.4-10.4 PT panel in platelet poor plasma by coag ulation assay - 10/18/17 07:38 Prothrombin time (PT) in platelet poor plasma by coagu lation assay 12.7 s 12.2-14.7 INR in platelet poor plasma or blood by coagulation as say 1.0 0.8-1.4 Activated partial thromboplastin time (a PTT) in platelet poor plasma bycoagulation assay - 10/18/17 07:38 Activated partial thromboplastin time (a PTT) in platelet poor plasma bycoagulation assay 31 s 24-35 Comprehensive metabolic panel - 10/18/17 07:38 Serum or plasma sodium measurement (moles/volume) 135 mmol/L 135-145 Serum or plasma potassium measurement (moles/volume) 4.1 mmol/L 3.6-5.0 Serum or plasma chloride measurement (moles/volume) 99 mmol/L 98-107 Carbon dioxide 23 mmol/L 21-32 Serum or plasma anion gap determination (moles/volume) 13 mmol/L 5-14 Serum or plasma urea nitrogen measurement (mass/volume ) 11 mg/dL 7-18 Serum or plasma creatinine measurement (mass/volume) 0.79 mg/dL 0.60-1.30 Serum or plasma urea nitrogen/creatinine mass ratio 14 NRG Serum or plasma creatinine measurement w ith calculation of estimated glomerular filtration rate > NRG Serum or plasma glucose measurement (mass/volume) 132 mg/dL 70-105 Serum or plasma calcium measurement (mass/volume) 9.2 mg/dL 8.5-10.1 Serum or plasma total bilirubin measurement (mass/volu me) 0.4 mg/dL 0.1-1.0 Serum or plasma alkaline phosphatase javon surement (enzymatic activity/volume) 106 U/L 40-136 Serum or plasma aspartate aminotransfera se measurement (enzymatic activity/volume) 17 U/L 5-34 Serum or plasma alanine aminotransferase measurement (enzymatic activity/volume) 11 U/L 0-55 Serum or plasma protein measurement (mass/volume) 7.6 g/dL 6.4-8.2 Serum or plasma albumin measurement (mass/volume) 4.1 g/dL 3.2-4.5 Lipid 1996 panel - 10/18/17 07:38 Serum or plasma triglyceride measurement (mass/volume) 59 mg/dL <150 Serum or plasma cholesterol measurement (mass/volume) 167 mg/dL < 200 Serum or plasma cholesterol in HDL measurement (mass/v olume) 57 mg/dL 40-60 Cholesterol in LDL [mass/volume] in serum or plasma by direct assay 96 mg/dL 1-129 Serum or plasma cholesterol in VLDL measurement (mass/ volume) 12 mg/dL 5-40 Methicillin resistant Staphylococcus aur eus (MRSA) screening culture - 10/18/17 07:38 Methicillin resistant Staphylococcus aureus (MRSA) scr eening culture NEG NRG Arterial blood gas measurement - 8 15:45 Blood pCO2 42 mm[Hg] 35-45 Blood pO2 63 mm[Hg] 79-93 Arterial blood bicarbonate measurement (moles/volume) 28 mmol/L 23-27 Arterial blood base excess by calculation 4.3 mmol /L -2.5-2.5 Arterial blood oxygen saturation measurement 89 % 94-100 * Inhaled oxygen flow rate ROOM AIR NRG Arterial blood pH measurement with patient temperature correction 7.45 7.37-7.43 Arterial blood carbon dioxide, total measurement (mole s/volume) 29.7 mmol/L 21.0-31.0 Body site LEFT RADIAL NRG Assessment of wrist artery patency prior to arterial p uncture POSITIVE NRG Setting of ventilation mode NO NR G Measurement of body temperature 97.6 NRG Complete urinalysis with reflex to cultu re - 05/02/18 08:00 Urine color determination YELLOW NRG Urine clarity determination CLEAR NR G Urine pH measurement by test strip 6 5-9 Specific gravity of urine by test strip 1.015 1.016-1.022 Urine protein assay by test strip, semi-quantitative NEGATIVE NEGATIVE Urine glucose detection by automated test strip NE GATIVE NEGATIVE Erythrocytes detection in urine sediment by light micr oscopy 1+ NEGATIVE Urine ketones detection by automated test strip NE GATIVE NEGATIVE Urine nitrite detection by test strip NEGATIVE NEGATIVE Urine total bilirubin detection by test strip NEGA TIVE NEGATIVE Urine urobilinogen measurement by automated test strip (mass/volume) NORMAL NORMAL Urine leukocyte esterase detection by dipstick 2+ NEGATIVE Automated urine sediment erythrocyte cou nt by microscopy (number/high power field) [HPF] NRG Automated urine sediment leukocyte count by microscopy (number/high power field) [HPF] NRG Bacteria detection in urine sediment by light microsco py TRACE NRG Squamous epithelial cells detection in u rine sediment by light microscopy 2-5 NRG Crystals detection in urine sediment by light microsco py NONE NRG Casts detection in urine sediment by light microscopy NONE NRG Mucus detection in urine sediment by light microscopy NEGATIVE NRG Complete urinalysis with reflex to culture NO NRG Bacterial urine culture - 05/02/18 08:00 Bacterial urine culture SEE REPORT NRG COLONY COUNT . NRG Encounters ACCT No. Visit Date/Time Discharge Status Pt. 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 [id number] 02/26/2019 08:02:00 23:59:59 CLS Outpatient PATSY RALPH APRN [facility] RAD PAIN IN LT LEG,LOCALIZE D EDEMA [id number] 12/07/2018 14:30:00 00:01:00 DIS Outpatient BEATRIS DOLAN HOP WEIGHER [facility] PULM 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 [id number] 11/23/2018 08:24:00 23:59:59 CLS Outpatient ARMANI VALERO MD [facility] RAD FU ABNORMAL [id number] 11/07/2018 14:00:00 00:01:00 DIS Outpatient BEATRIS DOLAN APRN [facility] PULM 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 [id number] 09/14/2018 08:50:00 23:59:59 CLS Outpatient EVERTON ISAAC DO [facility] RAD LINDSEY [id number] 08/08/2018 12:20:00 23:59:59 CLS Preadmit JUAN JOSÉ MCKEON DO [facility] ENDO SCREENING/FAMILY HX COL ON CANCER [id number] 08/01/2018 05:55:00 13:30:00 DIS Outpatient JUAN JOSÉ MCKEON DO [facility] PREOP COLONOSCOPY [id number] 07/31/2018 00:12:00 23:59:59 CLS Preadmit TAMMY REDDY APRN [facility] LAB URINARY URGENCY AND ANAYELI QUENCY [id number] 05/01/2018 15:51:00 00:01:00 DIS Outpatient TAMMY REDDY APRN [facility] LAB URINARY URGENCY AND FREQUENCY [id number] 07/26/2018 12:55:00 23:59:59 CLS Outpatient TAMMY REDDY HOP WEIGHER [facility] RAD ABNORMAL MAMMOG JOYCELYN [id number] 03/28/2018 14:25:00 23:59:59 CLS Outpatient BEATRIS DOLAN HOP WEIGHER [facility] LAB G47.10,R06.09 [id number] 02/28/2018 15:21:00 23:59:59 CLS Outpatient BEATRIS DOLAN HOP WEIGHER [facility] RT HYPERSOMNIA,LINDSEY [id number] 02/06/2018 08:24:00 018 23:59:59 CLS Outpatient BEATRIS DOLAN HOP WEIGHER [facility] RT LINDSEY [id number] 02/02/2018 11:29:00 018 23:59:59 CLS Outpatient BEATRIS DOLAN HOP WEIGHER [facility] RAD LEG SWELLING [id number] 02/01/2018 20:45:00 018 06:36:00 DIS Outpatient BEATRIS DOLAN HOP WEIGHER [facility] SLEEP MANDY [id number] 01/19/2018 12:15:00 018 23:59:59 CLS Outpatient BEATRIS DOLAN HOP WEIGHER [facility] RAD LEG SWELLING,DO E,ALLERGIC RHINITIS [id number] 11/17/2017 09:42:00 018 23:59:59 CLS Outpatient TAYLOR ANDERSON HOP WEIGHER [facility] RAD ABNORMAL MAMMOGRAM RIG HT BREAST [id number] 10/31/2017 13:43:00 018 23:59:59 CLS Outpatient DAY BECERRAP [facility] RAD ABN MAMMO [id number] 10/18/2017 06:48:00 018 14:00:00 DIS Outpatient RONALD RINCON FACC, SUSSY RUBIN CC DS [facility] CATH ACUTE DIAST OLIC CHF,CAD,LINDSEY,MANDY,PAH,OBESITY [id number] 10/12/2017 13:34:00 018 23:59:59 CLS Outpatient DAY BECERRA FLEET ADMINISTRATIVE ASSISTANT [facility] RAD SCREENING [id number] 10/11/2017 09:57:00 018 23:59:59 CLS Outpatient DYA BECERRAP [facility] RAD SCREENING [id number] 03/07/2017 12:53:00 017 23:59:59 CLS Outpatient DAY BECERRA FLEET ADMINISTRATIVE ASSISTANT [facility] RAD HEADACHES [id number] 02/14/2017 13:33:00 017 23:59:59 CLS Outpatient DAY BECERRA FLEET ADMINISTRATIVE ASSISTANT [facility] RAD DIZZINESS,HEADA ANA MARIA, [id number] 01/04/2017 11:05:00 017 23:59:59 CLS Outpatient LEATHAALEXIAJAIRHER Bassem HUERTASP [facility] CARD R06.09 [id number] 12/16/2016 13:00:00 017 11:30:00 DIS Outpatient INDIA RINCON, ARMANI andino [facility] REHAB L HEEL FRACTURE [id number] 10/05/2016 06:53:00 10:48:00 DIS Emergency YENNIFER RINCON, SAL Avila [facility] ER ILLNESS [id number] 06/03/2016 12:52:00 017 23:59:59 CLS Outpatient JAIR ZHANG [facility] CARD LINDSEY,PAH,CAD [id number] 04/18/2015 13:30:00 015 23:59:59 CLS Outpatient TAYLOR ANDERSON APRN [facility] RAD SCREENING [id number] 04/06/2015 20:20:00 015 06:35:00 DIS Outpatient BEATRIS DOLAN APRN [facility] SLEEP MANDY [id number] 12/06/2014 19:45:00 015 06:50:00 DIS Outpatient EVERTON ISAAC DO [facility] SLEEP MANDY,SNORING, [id number] 09/13/2014 19:45:00 015 07:05:00 DIS Outpatient EVERTON ISAAC DO [facility] SLEEP SNORING,CHOKING,GASPING [id number] 08/08/2014 07:58:00 015 23:59:59 CLS Outpatient RONALD RINCON FACC, SUSSY FACP CC DS [facility] CARD CAD,HLP [id number] 06/25/2014 10:18:00 015 23:59:59 CLS Outpatient FREDDIE MCNALLY MD [facility] RAD DYSPHAGIA [id number] 02/19/2014 11:16:00 014 23:59:59 CLS Outpatient ALISHA LEWIS MD [facility] RAD SCREENING [id number] 10/02/2013 07:19:00 014 23:59:59 CLS Outpatient RONALD RINCON FACC, SUSSY RUBIN CC DS [facility] CARD PAD,HLP [id number] 07/03/2013 11:04:00 014 17:20:00 DIS Emergency BELL LEDEZMA DO a [facility] ER CHEST TIGHTNESS/DIZZINE SS [id number] 11/13/2019 12:00:00 P EN Preadmit BAIJAIR PANIAGUA FLEET ADMINISTRATIVE ASSISTANT [facility] CARD CAD,LINDSEY [id number] 06/25/2014 10:34:00 Document Registration [id number] 06/25/2014 10:34:00 Document Registration [id number] 05/29/2012 09:13:00 Document Registration [id number] 10/06/2011 17:21:00 Document Registration [id number] 05/26/2011 10:04:00 Document Registration [id number] 12/14/2010 21:10:00 Document Registration [id number] 09/17/2010 09:33:00 Document Registration [id number] 03/24/2010 13:51:00 Document Registration [id number] 03/10/2010 13:39:00 Document Registration [id number] 01/01/2010 13:02:00 Document Registration [id number] 12/29/2009 05:46:00 Document Registration [id number] 12/24/2009 09:50:00 Document Registration [id number] 11/10/2009 10:42:00 Document Registration [id number] 11/23/2017 11:26:00 11/23/2017 23:59: 00 DIS Outpatient ARMANI OSBORNE [id number] 11/23/2017 10:51:00 11/23/2017 23:59: 00 DIS Outpatient ARMANI OSBORNE [id number] 03/31/2017 16:00:00 05/12/2017 10:50: 00 DIS Inpatient Eh Ortiz [facility] EVANS [id number] 12/22/2016 09:21:00 12/22/2016 23:59: 00 DIS Outpatient ARMANI OSBORNE [id number] 11/05/2016 10:45:00 11/05/2016 23:59: 00 DIS Outpatient ARMANI OSBORNE [id number] 09/28/2016 00:18:00 09/29/2016 10:15: 00 DIS Outpatient RupeshBell [facility] MED-SURG [id number] 09/28/2016 01:43:42 Document Registration [id number] 11/24/2017 13:30:00 11/24/2017 23:59: 59 [facility] Out[facility]
== END 2019-11-07 17:02 | disposition home or self-care (01) ==
LOC: EDUNIT# 16:07 → ER 16:08
DX: S90.32XA Contusion of left foot, initial encounter (principal); G24.9 Dystonia, unspecified; E78.00 Pure hypercholesterolemia, unspecified; K21.9 Gastro-esophageal reflux disease without esophagitis; K58.1 Irritable bowel syndrome with constipation; E03.9 Hypothyroidism, unspecified; F41.9 Anxiety disorder, unspecified; F31.9 Bipolar disorder, unspecified; Z88.2 Allergy status to sulfonamides; Z88.1 Allergy status to other antibiotic agents; Z91.041 Radiographic dye allergy status; Z88.8 Allergy status to other drugs, medicaments and biological substances; Z79.82 Long term (current) use of aspirin; Z79.890 Hormone replacement therapy; X58.XXXA Exposure to other specified factors, initial encounter
CPT/HCPCS: 99282

== ENCOUNTER → 2019-11-13 | Outpatient (CLI) | payer MEDICARE | LOC: CARD 11:25 | PROVIDERS: ATTEND Nurse Practitioner Family | DX: I25.10 Atherosclerotic heart disease of native coronary artery without angina pectoris (principal); I07.1 Rheumatic tricuspid insufficiency; I51.7 Cardiomegaly; E78.5 Hyperlipidemia, unspecified; G47.33 Obstructive sleep apnea (adult) (pediatric); I65.23 Occlusion and stenosis of bilateral carotid arteries; I73.9 Peripheral vascular disease, unspecified | CPT/HCPCS: 93306; 93923 ==

== ENCOUNTER → 2019-12-21 | Outpatient (CLI) | payer MEDICARE ==
--- NOTE | 2019-12-21 12:10 | Diagnostic Imaging Report ---
INDICATION: Routine screening. Comparison is made with prior mammograms 11/23/2018 and 10/11/2017. 2-D and 3-D bilateral screening mammography was performed with CAD. Both breasts remain heterogeneously dense, limiting the sensitivity of mammography. There are scattered benign-appearing parenchymal and vascular calcifications bilaterally. Biopsy marker clip in the right breast is again noted. No mass or malignant appearing microcalcifications are identified. Axillae are unremarkable. IMPRESSION: BI-RADS Category 2 No mammographic features suspicious for malignancy are identified. ACR BI-RADS Category 2: Benign findings. Result letter will be mailed to the patient. Note: At least 10% of breast cancer is not imaged by mammography. Dictated by: Dictated on workstation # [id number]
== END ==
LOC: RAD 10:15
PROVIDERS: ATTEND Internal Medicine
DX: Z12.31 Encounter for screening mammogram for malignant neoplasm of breast (principal)
CPT/HCPCS: 77063; 77067

== ENCOUNTER → 2020-03-05 | Outpatient (CLI) | payer MEDICARE ==
[~2020-03-05] MED LIST changes: +ASPI-1238 PO; -ASPI-983 PO
== END ==
LOC: LABNPT 05:16
PROVIDERS: ATTEND Internal Medicine
DX: R05 Cough (principal); R09.81 Nasal congestion; Z20.828 Contact with and (suspected) exposure to other viral communicable diseases
CPT/HCPCS: 87635

== ENCOUNTER → 2020-07-25 | Outpatient (CLI) | payer MEDICARE ==
--- NOTE | 2020-07-25 15:34 | Diagnostic Imaging Report ---
INDICATION: Respiratory distress. EXAMINATION: PA and lateral chest. FINDINGS: There is a moderate-sized hiatal hernia. Heart size and pulmonary vascularity are normal. Lungs are clear. There is no effusion or pneumothorax. IMPRESSION: No acute abnormality in the chest. Dictated by: Dictated on workstation # [id number]
== END ==
LOC: RAD 14:50
PROVIDERS: ATTEND Nurse Practitioner Family
DX: J44.9 Chronic obstructive pulmonary disease, unspecified (principal)
CPT/HCPCS: 71046

== ENCOUNTER 2020-09-03 09:55 | Outpatient (RCR) | payer MEDICARE ==
[~2020-09-03 09:55] MED LIST changes: -OLAN5TAB25 PO; +OLN5T PO
[2020-10-24] MEDS ORDERED: CALC-250 PO (11:30)
== END 2020-12-02 | disposition home or self-care (01) ==
LOC: PULM 09:55
PROVIDERS: ATTEND Nurse Practitioner Family
DX: J44.9 Chronic obstructive pulmonary disease, unspecified (principal)
CPT/HCPCS: 99211

== ENCOUNTER 2020-10-23 05:33 | Outpatient (CLI) | payer MEDICARE ==
[~2020-10-23] VITALS: Ht 154.9 cm; Wt 102.3 kg
[~2020-10-23 05:33] MED LIST changes: +OLAN5TAB25 PO; -OLN5T PO
[2020-10-24] MEDS ORDERED: CALC-250 PO (11:30)
== END 2020-10-24 11:34 | disposition home or self-care (01) ==
LOC: PREOP 05:33
PROVIDERS: ATTEND Specialist
DX: Z01.818 Encounter for other preprocedural examination (principal)

== ENCOUNTER 2020-10-31 08:41 | Day surgery (SDC) | payer MEDICARE ==
[~2020-10-31] VITALS: Ht 154.9 cm; Wt 102.3 kg
[~2020-10-31 08:41] MED LIST changes: +CALC-250 PO
[2020-10-31] MEDS ORDERED: TROPICAMIDE 1% OPH SOLN (MYDRIACYL) 15 ML BTL OU PRN (09:00)
[2020-10-31] MEDS ORDERED: PHENYLEPHRINE 10% OPHTH (NEO-SYN) 5 ML BTL OU PRN (09:00)
[2020-10-31 09:08] VITALS: BP 130/77
[2020-10-31] MEDS: TETRACAINE 0.5% OPHTH SOLN 4 ML BTL (SINGLE DOSE ONLY) OU PRN ×3 (09:12→09:20)
--- NOTE | 2020-10-31 09:27 | Ophthalmologist Pre-Op Note ---
Pre-Operative Progress Note H&P Reviewed The H&P was reviewed, patient examined and no changes noted. Date H&P Reviewed: Oct 31, 2020 Time H&P Reviewed: 09:27 Pre-Op Dx Secondary Cataract, Right Eye WILLIAM AVILA MD Oct 31, 2020 09:27
[2020-10-31 09:40] VITALS: BP 130/77
--- NOTE | 2020-10-31 09:50 | Ophthalmology Operative Report ---
YAG Capsulotomy PREOPERATIVE DIAGNOSIS: Secondary Cataract Left Eye POSTOPERATIVE DIAGNOSIS: Secondary Cataract Left Eye PROCEDURE: YAG Capsulotomy, left eye SURGEON: Jason Avila ANESTHESIA: Topical anesthesia COMPLICATIONS: None ESTIMATED BLOOD LOSS: Minimal DESCRIPTION OF PROCEDURE: After proper informed consent was obtained, the patient's, a 85 female left eye received one drop of Tropicamide and one drop of Tetracaine. The patient was then placed at the YAG laser and using a power of [3.8 ] millijoules and [21 ] bursts were used to fashion a central capsulotomy. The patient tolerated the procedure well without complications. JASON AVILA MD Oct 31, 2020 09:50
== END 2020-10-31 09:40 | disposition home or self-care (01) ==
LOC: SDC 08:41
PROVIDERS: ATTEND Specialist
DX: H26.492 Other secondary cataract, left eye (principal)

== ENCOUNTER 2020-11-07 13:41 | Outpatient (RCR) | payer MEDICARE | END 2020-11-13 | disposition home or self-care (01) | LOC: CR3 13:41 | PROVIDERS: ATTEND Internal Medicine | DX: Z29.8 Encounter for other specified prophylactic measures (principal) ==

== ENCOUNTER 2020-12-05 13:02 | Outpatient (RCR) | payer MEDICARE ==
[~2020-12-05 13:02] MED LIST changes: -OLAN5TAB25 PO; +OLN5T PO
== END 2020-12-19 | disposition home or self-care (01) ==
LOC: CR3 13:02
PROVIDERS: ATTEND Internal Medicine
DX: Z29.8 Encounter for other specified prophylactic measures (principal)

== ENCOUNTER → 2021-01-13 | Outpatient (CLI) | payer MEDICARE ==
--- NOTE | 2021-01-13 15:40 | Diagnostic Imaging Report ---
INDICATION: Cough. TIME OF EXAM: 1:54 PM. COMPARISON: Correlation is made with the prior chest from 07/25/2020. FINDINGS: The heart size is stable. The patient has a large hiatal hernia. No significant infiltrate is seen. The pulmonary vascularity is normal. There is no effusion or pneumothorax. IMPRESSION: Large hiatal hernia, similar to the prior exam. No other significant abnormality is identified. Dictated by: Dictated on workstation # [id number]
== END ==
LOC: RAD 13:35
PROVIDERS: ATTEND Internal Medicine
DX: K44.9 Diaphragmatic hernia without obstruction or gangrene (principal); J44.9 Chronic obstructive pulmonary disease, unspecified
CPT/HCPCS: 71046

== ENCOUNTER 2021-01-23 13:02 | Outpatient (RCR) | payer MEDICARE | END 2021-01-25 | LOC: CR3 13:02 | PROVIDERS: ATTEND Internal Medicine | DX: Z02.89 Encounter for other administrative examinations (principal) ==

== ENCOUNTER → 2021-02-27 | Outpatient (RCR) | payer MEDICARE | END | disposition home or self-care (01) | LOC: CR3 01-28 17:43 | PROVIDERS: ATTEND Internal Medicine | DX: Z29.8 Encounter for other specified prophylactic measures (principal) ==

== ENCOUNTER → 2021-03-02 | Outpatient (CLI) | payer MEDICARE ==
--- NOTE | 2021-03-03 18:20 | Diagnostic Imaging Report ---
EXAM: Digital mammogram, bilateral screening. COMPARISONS: This study was compared to the prior exams of 12/21/2019, 11/23/2018, 07/26/2018 and 10/11/2017. At this time, there are no current complaints. The current study was also evaluated with a Computer Aided Detection (CAD) system. FINDINGS: The fibroglandular tissue in both breasts is heterogeneously dense. This does limit the sensitivity of this exam. Overall, there does not appear to have been any significant change when compared to the prior study. No primary or secondary sign of malignancy is noted. The stereotactic clip in the right breast seen previously is again evident and no different. IMPRESSION: There is no radiographic evidence for malignancy. ACR category 1 ACR BI-RADS Category 1: Negative. Result letter will be mailed to the patient. Note: At least 10% of breast cancer is not imaged by mammography. Dictated by: Dictated on workstation # [id number]
== END ==
LOC: RAD 14:43
PROVIDERS: ATTEND Internal Medicine
DX: Z12.31 Encounter for screening mammogram for malignant neoplasm of breast (principal)
CPT/HCPCS: 77063; 77067

== ENCOUNTER → 2021-04-01 | Outpatient (RCR) | payer MEDICARE | END | disposition home or self-care (01) | LOC: CR3 03-02 14:45 | PROVIDERS: ATTEND Internal Medicine | DX: Z29.8 Encounter for other specified prophylactic measures (principal) ==

== ENCOUNTER → 2021-05-06 | Outpatient (RCR) | payer MEDICARE | LOC: CR3 04-06 13:25 | PROVIDERS: ATTEND Internal Medicine | DX: Z29.8 Encounter for other specified prophylactic measures (principal) ==

== ENCOUNTER 2021-05-22 05:30 | Outpatient (RCR) | payer MEDICARE ==
[~2021-05-22] VITALS: Ht 152.4 cm; Wt 101.2 kg
[~2021-05-22 05:30] MED LIST changes: +DIVA250T12 PO; +FURO20TA4 PO; +LATA7.5D OP; +OLAN15TA35 PO; +PANT40SU PO; +POTA10CA43 PO
== END 2021-05-22 09:34 | disposition home or self-care (01) ==
LOC: PREOP 05:30
PROVIDERS: ATTEND Surgery
DX: R11.2 Nausea with vomiting, unspecified (principal); Z20.822 Contact with and (suspected) exposure to COVID-19
CPT/HCPCS: 87635

== ENCOUNTER → 2021-05-26 | Day surgery (SDC) | payer MEDICARE ==
[~2021-05-26] VITALS: Ht 152.4 cm; Wt 101.2 kg
[~2021-05-26] MED LIST changes: +HURRICAINE EXT TUBE (BENZOCAINE) XX PRN; +LACTATED RINGERS 1,000 ML IV ONE; +LACTATED RINGERS 1,000 ML IV STA; +proPOfol 200 MG/20 ML (DIPRIVAN) VIAL IV ONE
[2021-05-26 10:15] VITALS: BP 133/50
--- NOTE | 2021-05-26 10:42 | Progress Note-Pre Operative ---
Pre-Operative Progress Note H&P Reviewed The H&P was reviewed, patient examined and no changes noted. Date Seen by Provider: May 26, 2021 Time Seen by Provider: 10:41 Date H&P Reviewed: May 26, 2021 Time H&P Reviewed: 10:41 Pre-Operative Diagnosis: gerd, hiatal hernia, n/v JUAN JOSÉ MCKEON DO May 26, 2021 10:42
[2021-05-26 11:31] VITALS: BP 132/71
[2021-05-26 11:36] VITALS: BP 152/76
--- NOTE | 2021-05-26 11:38 | Progress Note-Post Operative ---
Post-Operative Progess Note Surgeon (s)/Building Carpenter (s) Surgeon JUAN JOSÉ MCKEON DO Building Carpenter: na Pre-Operative Diagnosis gerd, hiatal hernia, n/v Post-Operative Diagnosis hiatal hernia, gastric polyp Procedure & Operative Findings Date of Procedure 05/26/21 Procedure Performed/Findings egd c snare polypectomy of gastric polyp, biopsy antrum, placement resolution clip. Anesthesia Type per remelter Estimated Blood Loss Estimated blood loss (mL): scant Specimens/Packing Specimens Removed antrum JUAN JOSÉ MCKEON DO May 26, 2021 11:38
--- NOTE | 2021-05-26 11:39 | Discharge Inst-Simple/Standard ---
Discharge Inst-Standard Patient Instructions/Follow Up Plan of Care/Instructions/FU: 2 weeks Manuel Activity as Tolerated: Yes Discharge Diet: Regular Diet (small frequent meals, avoid breads and solid meats.) JUAN JOSÉ MCKEON DO May 26, 2021 11:39
[2021-05-26 11:40] VITALS: BP 111/63
[2021-05-26 12:10] VITALS: BP 125/65
[2021-05-26 12:25] VITALS: BP 125/65
--- NOTE | 2021-05-26 13:23 | Anesthesia-General Post-Op ---
MAC Patient Condition Mental Status/LOC: Same as Preop Cardiovascular: Satisfactory Nausea/Vomiting: Absent Respiratory: Satisfactory Pain: Controlled Complications: Absent Post Op Complications Complications None Follow Up Care/Instructions Patient Instructions None needed. Anesthesiology Discharge Order Discharge Order Patient is doing well, no complaints, stable vital signs, no apparent adverse anesthesia problems. No complications reported per nursing. ANTONINO CONSTANTINO CRNA May 26, 2021 13:23
--- NOTE | 2021-05-26 16:47 | OPERATIVE REPORT ---
DATE OF SERVICE: 05/26/2021 PREOPERATIVE DIAGNOSES: Gastroesophageal reflux disease, hiatal hernia, nausea and vomiting. POSTOPERATIVE DIAGNOSES: Hiatal hernia, gastric polyp. PROCEDURE: EGD with snare polypectomy of gastric polyp, biopsy of the antrum and placement of Resolution clip. SURGEON: Juan José Jackson DO ANESTHESIA: Per MONUMENT LETTERER. ESTIMATED BLOOD LOSS: Scant. COMPLICATIONS: None. INDICATIONS: The patient is an 85-year-old female with nausea, vomiting, GERD and hiatal hernia. She understands risks and benefits of procedure and wishes to proceed. Consent was signed in the chart. DESCRIPTION OF PROCEDURE: The patient was taken to the endoscopy suite, placed in left lateral recumbent position. Timeout was performed. Scope was inserted in mouth, down the esophagus, stomach and into the duodenum without difficulty. No polyps, masses or ulcerations within the duodenum. Scope was slowly retracted back into the stomach where it was further insufflated. Biopsy of the antrum was obtained. Scope was retroflexed noting a moderate to large sized hiatal hernia, also benign-appearing gastric polyp. The scope was then slowly retracted back. Snare polypectomy was performed. The base did have some bleeding. Resolution clip was then placed in this area to stop the bleeding. The gastric polyp was able to be obtained for pathology. Scope was then continuously retracted back into the esophagus and no other pathology noted. Scope was then slowly retracted back until completely removed. The patient tolerated procedure well without any complications. She was taken to recovery room in stable condition. RECOMMENDATIONS: The patient to continue on current medications. We would recommend small frequent meals. She will follow up in a couple of weeks. The polyp appeared benign, but the patient is concerned. We would consider repeating endoscopy in 3 to 6 months for reevaluation of that area. Job ID: [id number] DocumentID: [id number] Dictated Date: 05/26/2021 11:44:27 Splash Line Operator Date: 05/26/2021 16:46:17 Dictated By: JUAN JOSÉ JACKSON DO
== END ==
LOC: ENDO 09:50
PROVIDERS: ATTEND Surgery
DX: K21.9 Gastro-esophageal reflux disease without esophagitis (principal); K31.7 Polyp of stomach and duodenum; K44.9 Diaphragmatic hernia without obstruction or gangrene; E78.5 Hyperlipidemia, unspecified; G47.33 Obstructive sleep apnea (adult) (pediatric); J44.9 Chronic obstructive pulmonary disease, unspecified; K58.9 Irritable bowel syndrome, unspecified; E66.9 Obesity, unspecified; F41.9 Anxiety disorder, unspecified; F31.9 Bipolar disorder, unspecified; Z79.890 Hormone replacement therapy; Z79.82 Long term (current) use of aspirin; Z79.899 Other long term (current) drug therapy; Z90.89 Acquired absence of other organs; Z79.02 Long term (current) use of antithrombotics/antiplatelets; Z68.41 Body mass index [BMI] 40.0-44.9, adult; Z80.9 Family history of malignant neoplasm, unspecified; Z82.49 Family history of ischemic heart disease and other diseases of the circulatory system
CPT/HCPCS: 88305

== ENCOUNTER 2021-06-05 13:17 | Outpatient (RCR) | payer MEDICARE ==
[~2021-06-05 13:17] MED LIST changes: -HURRICAINE EXT TUBE (BENZOCAINE) XX PRN; -LACTATED RINGERS 1,000 ML IV ONE; -LACTATED RINGERS 1,000 ML IV STA; -proPOfol 200 MG/20 ML (DIPRIVAN) VIAL IV ONE
== END 2021-06-14 | disposition home or self-care (01) ==
LOC: CR3 13:17
PROVIDERS: ATTEND Internal Medicine
DX: Z29.8 Encounter for other specified prophylactic measures (principal)

== ENCOUNTER → 2021-08-12 | Outpatient (RCR) | payer MEDICARE | END | disposition home or self-care (01) | LOC: CR3 06-24 14:10 | PROVIDERS: ATTEND Internal Medicine | DX: Z29.8 Encounter for other specified prophylactic measures (principal) ==

== ENCOUNTER 2021-10-09 15:17 | Outpatient (RCR) | payer MEDICARE | END 2021-10-12 | disposition home or self-care (01) | LOC: CR3 15:17 | PROVIDERS: ATTEND Internal Medicine | DX: Z29.8 Encounter for other specified prophylactic measures (principal) ==

== ENCOUNTER 2021-10-28 15:16 | Outpatient (RCR) | payer MEDICARE | END 2021-12-12 | disposition home or self-care (01) | LOC: CR3 15:16 | PROVIDERS: ATTEND Internal Medicine | DX: Z29.8 Encounter for other specified prophylactic measures (principal) ==

== ENCOUNTER 2021-11-20 15:41 | Emergency (ER) | payer MEDICARE ==
[~2021-11-20] VITALS: Ht 152.4 cm; Wt 94.8 kg
--- NOTE | 2021-11-20 15:59 | ED General ---
General Stated Complaint: ABD PAIN Source of Information: Patient Exam Limitations: No Limitations History of Present Illness Date Seen by Provider: Nov 20, 2021 Time Seen by Provider: 15:57 Initial Comments To ER with reports of nausea vomiting throughout the night last night. Denies abdominal pain. No bowel movement for 1 week though she is passing gas. She called primary care provider today and was advised to come to the emergency room. She has no nausea no vomiting no abdominal pain currently. Timing/Duration: 12 Hours Severity: Moderate Associated Systoms: Nausea/Vomiting Allergies and Home Medications Allergies Coded Allergies: Iodinated Contrast Media (Verified Allergy, Unknown, 10/24/20) Sulfa (Sulfonamide Antibiotics) (Verified Allergy, Unknown, 08/01/18) bacitracin (Unverified Allergy, Unknown, 08/01/18) diphenhydramine (Unverified Allergy, Unknown, 08/01/18) gramicidin D (Unverified Allergy, Unknown, 08/01/18) neomycin (Unverified Allergy, Unknown, 08/01/18) polymyxin B (Unverified Allergy, Unknown, 08/01/18) quinine (Unverified Allergy, Unknown, 08/01/18) Patient Home Medication List Home Medication List Reviewed: Yes Aspirin (Aspirin EC) 81 Mg Tablet.dr, 81 MG PO DAILY, (Reported) Entered as Reported by: SETH CARBONE on 10/18/17 0832 Atorvastatin Calcium (Atorvastatin Calcium) 40 Mg Tablet, 40 MG PO HS, (Reported) Entered as Reported by: SETH CARBONE on 10/18/17 0828 Cholecalciferol (Vitamin D3) (Vitamin D3) 125 Mcg Tablet, 125 MCG PO DAILY, (Reported) Entered as Reported by: RAYSHAWN PYLE on 10/24/20 1130 Divalproex Sodium (Divalproex Sodium ER) 250 Mg Tab.er.24h, 250 MG PO BID, (Reported) Entered as Reported by: BERKLEY WELLS on 05/18/21 1252 Furosemide (Furosemide) 20 Mg Tablet, 20 MG PO DAILY, (Reported) Entered as Reported by: BERKLEY WELLS on 05/18/21 1254 Latanoprost/Pf (Latanoprost 0.005% Eye Drop) 7.5 Ml Drops, 7.5 ML OP DAILY, (Reported) Entered as Reported by: BERKLEY WELLS on 05/18/21 1256 Levothyroxine Sodium (Levothyroxine Sodium) 100 Mcg Tablet, 100 MCG PO DAILY, (Reported) Entered as Reported by: SETH CARBONE on 10/18/17827 Melatonin (Melatonin) 3 Mg Tablet, 3 MG PO HS, (Reported) Entered as Reported by: SETH CARBONE on 10/18/17827 Olanzapine (Olanzapine) 15 Mg Tablet, 15 MG PO HS, (Reported) Entered as Reported by: BERKLEY WELLS on 05/18/21 130 Pantoprazole Sodium (Protonix) 40 Mg Granpkt.dr, 40 MG PO DAILY, (Reported) Entered as Reported by: BERKLEY WELLS on 05/18/21 130 Potassium Chloride (Potassium Chloride) 10 Meq Capsule.er, 10 MEQ PO DAILY, (Reported) Entered as Reported by: BERKLEY WLELS on 05/18/21 130 Venlafaxine HCl (Venlafaxine HCl ER) 75 Mg Tab.er.24, 75 MG PO DAILY, (Reported) Entered as Reported by: SETH CARBONE on 10/18/17827 Review of Systems Review of Systems Constitutional: see HPI EENTM: see HPI Respiratory: no symptoms reported Cardiovascular: no symptoms reported Gastrointestinal: No abdominal pain; constipation, nausea, vomiting Genitourinary: no symptoms reported Musculoskeletal: no symptoms reported Skin: no symptoms reported Psychiatric/Neurological: No Symptoms Reported Hematologic/Lymphatic: No Symptoms Reported Immunological/Allergic: no symptoms reported Past Veqxqeb-Phfclz-Sjpjdu Hx Immunizations Up To Date First/Initial COVID19 Vaccinat: yes Second COVID19 Vaccination Nathan: yes Seasonal Allergies Seasonal Allergies: No Past Medical History Surgeries: Yes (INÉS TKR,2 C-SECTIONS) Appendectomy, Thyroidectomy Respiratory: Yes (STATES CANT WEAR MASK, O2 2L-HAS LOW O2 SATS, chronic cough) Sleep Apnea Cardiac: Yes (bradycardia) High Cholesterol Neurological: No Reproductive Disorders: No 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 Sexually Transmitted Disease: No HIV/AIDS: No Genitourinary: No Gastrointestinal: Yes (n&V) Gastroesophageal Reflux, Chronic Constipation, Irritable Bowel Musculoskeletal: Yes Arthritis Endocrine: Yes (RIGHT SIDE OF THYROID REMOVED) Hypothyroidsim HEENT: Yes (GLASSES, TOP DENTURES) Loss of Vision: Bilateral Hearing Impairment: Denies Cancer: No Psychosocial: Yes (HX DEPRESSION, BI POLAR) Anxiety, Bipolar, Depression Integumentary: No Blood Disorders: No Adverse Reaction/Blood Tranf: No (HAS HAD BLOOD WITH NO REACTION) Family Medical History No Pertinent Family Hx Physical Exam Vital Signs Vital Signs - First Documented 11/20/21 15:49 Temp 36.9 Pulse 101 Resp 15 B/P (MAP) 162/90 (114) O2 Delivery Room Air Capillary Refill : Height, Weight, BMI Height: 5'0.00" Weight: 243lbs. 4.0oz. 103.168014wg; 43.57 BMI Method:Stated General Appearance: No Apparent Distress, WD/WN, Obese Eyes: Bilateral Eye Normal Inspection, Bilateral Eye PERRL, Bilateral Eye EOMI Neck: Full Range of Motion, Normal Inspection Respiratory: Normal Breath Sounds, No Accessory Muscle Use, No Respiratory Distress Cardiovascular: Regular Rate, Rhythm, Normal Peripheral Pulses Gastrointestinal: Normal Bowel Sounds, Non Tender, Soft Extremity: Normal Capillary Refill, Normal Inspection Neurologic/Psychiatric: Alert, Oriented x3 Skin: Normal Color, Warm/Dry Progress/Results/Core Measures Suspected Sepsis SIRS Temperature: Pulse: Respiratory Rate: Laboratory Tests 11/20/21 16:04: White Blood Count 10.7 Blood Pressure / Mean: Laboratory Tests 11/20/21 16:04: Creatinine 0.80, Platelet Count 264, Total Bilirubin 0.5 Results/Orders Lab Results Laboratory Tests Test 11/20/21 16:04 11/20/21 18:10 Range/Units White Blood Count 10.7 4.3-11.0 10^3/uL Red Blood Count 5.05 3.80-5.11 10^6/uL Hemoglobin 13.3 11.5-16.0 g/dL Hematocrit 41 35-52 % Mean Corpuscular Volume 82 80-99 fL Mean Corpuscular Hemoglobin 26 25-34 pg Mean Corpuscular Hemoglobin Concent 32 32-36 g/dL Red Cell Distribution Width 16.5 H 10.0-14.5 % Platelet Count 264 130-400 10^3/uL Mean Platelet Volume 10.8 9.0-12.2 fL Immature Granulocyte % (Auto) 0 % Neutrophils (%) (Auto) 63 42-75 % Lymphocytes (%) (Auto) 26 12-44 % Monocytes (%) (Auto) 10 0-12 % Eosinophils (%) (Auto) 0 0-10 % Basophils (%) (Auto) 0 0-10 % Neutrophils # (Auto) 6.8 1.8-7.8 10^3/uL Lymphocytes # (Auto) 2.8 1.0-4.0 10^3/uL Monocytes # (Auto) 1.0 0.0-1.0 10^3/uL Eosinophils # (Auto) 0.0 0.0-0.3 10^3/uL Basophils # (Auto) 0.0 0.0-0.1 10^3/uL Immature Granulocyte # (Auto) 0.0 0.0-0.1 10^3/uL Sodium Level 139 135-145 MMOL/L Potassium Level 3.2 L 3.6-5.0 MMOL/L Chloride Level 99 98-107 MMOL/L Carbon Dioxide Level 26 21-32 MMOL/L Anion Gap 14 5-14 MMOL/L Blood Urea Nitrogen 11 7-18 MG/DL Creatinine 0.80 0.60-1.30 MG/DL Estimat Glomerular Filtration Rate 73 BUN/Creatinine Ratio 14 Glucose Level 122 H 70-105 MG/DL Calcium Level 9.2 8.5-10.1 MG/DL Corrected Calcium 9.4 8.5-10.1 MG/DL Total Bilirubin 0.5 0.1-1.0 MG/DL Aspartate Amino Transf (AST/SGOT) 14 5-34 U/L Alanine Aminotransferase (ALT/SGPT) 11 0-55 U/L Alkaline Phosphatase 82 40-136 U/L C-Reactive Protein High Sensitivity 0.66 H 0.00-0.50 MG/DL Total Protein 7.0 6.4-8.2 GM/DL Albumin 3.8 3.2-4.5 GM/DL Lipase 11 8-78 U/L Urine Color YELLOW Urine Clarity CLEAR Urine pH 6.0 5-9 Urine Specific Whitmore 1.025 H 1.016-1.022 Urine Protein NEGATIVE NEGATIVE Urine Glucose (UA) NEGATIVE NEGATIVE Urine Ketones NEGATIVE NEGATIVE Urine Nitrite NEGATIVE NEGATIVE Urine Bilirubin NEGATIVE NEGATIVE Urine Urobilinogen 1.0 < = 1.0 MG/DL Urine Leukocyte Esterase TRACE H NEGATIVE Urine RBC (Auto) 2+ H NEGATIVE Urine RBC 2-5 H /HPF Urine WBC 0-2 /HPF Urine Squamous Epithelial Cells 5-10 /HPF Urine Crystals NONE /LPF Urine Bacteria NEGATIVE /HPF Urine Casts NONE /LPF Urine Mucus SMALL H /LPF Urine Culture Indicated NO My Orders Orders - VICKI BOTELLO APRN Ns Iv 500 Ml (Sodium Chloride 0.9%) (11/20/21 16:00) Ct Abdomen/Pelvis Wo (11/20/21 15:55) Ns Iv 500 Ml (Sodium Chloride 0.9%) (11/20/21 17:15) Lactated Ringers (Lr 1000 Ml Iv Solution (11/20/21 17:15) Vital Signs/I&O 11/20/21 15:49 Temp 36.9 Pulse 101 Resp 15 B/P (MAP) 162/90 (114) O2 Delivery Room Air Capillary Refill : Departure Communication (Admissions) NAME: LINDA RIVERA [facility] REC#: [id number] PT STATUS: REG ER : 1935 PHYSICIAN: VICKI BOTELLO APRN ADMIT DATE: 11/20/21/ER Draft Date of Exam:11/20/21 CT ABDOMEN/PELVIS WO PROCEDURE: CT abdomen and pelvis without contrast. TECHNIQUE: Multiple contiguous axial images were obtained through the abdomen and pelvis without the use of intravenous contrast. Auto Exposure Controls were utilized during the CT exam to meet ALARA standards for radiation dose reduction. INDICATION: Abdominal pain. Constipation. COMPARISON: 04/10/2019. FINDINGS: The heart is unremarkable. The lung bases are clear. Cortical cyst is seen in the mid left kidney. No hydronephrosis or renal calculi. No perinephric fat stranding. The urinary bladder is decompressed. The liver, spleen, pancreas, and adrenal glands have a normal noncontrast CT appearance. The gallbladder is decompressed. There is no pathologically enlarged mesenteric or retroperitoneal adenopathy. Large hiatal hernia is seen with intrathoracic stomach. The bowel loops are nondilated. Scattered diverticula are seen in the descending and sigmoid colon without evidence of acute diverticulitis. There is no free fluid or free air. No acute osseous abnormalities. There is grade 1 anterolisthesis of L4 on L5. Chronic height loss is seen in the superior endplate of T12 secondary to a prominent Schmorl's node. There is calcified aortic and iliac atherosclerotic plaque without aneurysm. There is no free air, loculated collection, or adenopathy in the pelvis. IMPRESSION: 1. No evidence of bowel obstruction. No large burden of stool is seen in the colon. No free fluid or free air. 2. Large hiatal hernia with intrathoracic stomach. This has increased in size since the prior exam. This can predispose to gastric volvulus. Recommend correlation with patient history and symptoms and surgical consultation to further evaluate. 3. Scattered diverticula without evidence of acute diverticulitis. Dictated on workstation # [id number] Dict: 11/20/21 1629 Trans: 11/20/21 1636 [id number] Interpreted by: RANDALL PINEDO DO Electronically signed by: Impression Primary Impression: Hiatal hernia Additional Impression: Nausea and vomiting Disposition: 01 HOME, SELF-CARE Condition: Stable Departure-Patient Inst. Decision time for Depature: 16:47 Referrals: ARMANI VALERO MD (PCP/Family) Primary Care Physician Patient Instructions: Nausea and Vomiting, Adult Add. Discharge Instructions: 1. Return to ER for any concerns follow-up with your doctor next week. VICKI BOTELLO FRONT END LOADER OPERATOR Nov 20, 2021 15:59
[2021-11-20] MEDS ORDERED: NS IV 500 ML 500 ML IV SCH ×2 (16:00→17:15)
[2021-11-20 16:10] LABS: BASOPHILS % (AUTO) 0 % (0-10); EOSINOPHILS % (AUTO) 0 % (0-10); HEMATOCRIT 41 % (35-52); HEMOGLOBIN 13.3 g/dL (11.5-16.0); LYMPHOCYTES # (AUTO) 2.8 10^3/uL (1.0-4.0); LYMPHOCYTES % (AUTO) 26 % (12-44); MEAN CORPUSCULAR HEMOGLOBIN 26 pg (25-34); MEAN CORPUSCULAR HGB CONC 32 g/dL (32-36); MEAN CORPUSCULAR VOLUME 82 fL (80-99); MEAN PLATELET VOLUME 10.8 fL (9.0-12.2); MONOCYTES % (AUTO) 10 % (0-12); NEUTROPHILS # (AUTO) 6.8 10^3/uL (1.8-7.8); NEUTROPHILS % (AUTO) 63 % (42-75); PLATELET COUNT 264 10^3/uL (130-400); WHITE BLOOD COUNT 10.7 10^3/uL (4.3-11.0)
[2021-11-20 16:24] LABS: ALBUMIN 3.8 GM/DL (3.2-4.5); POTASSIUM 3.2 MMOL/L (3.6-5.0)
[2021-11-20 16:25] LABS: CALCIUM 9.2 MG/DL (8.5-10.1)
[2021-11-20 16:28] LABS: BILIRUBIN,TOTAL 0.5 MG/DL (0.1-1.0)
[2021-11-20 16:30] LABS: CREATININE SERUM 0.8 MG/DL (0.60-1.30)
--- NOTE | 2021-11-20 16:37 | Diagnostic Imaging Report ---
PROCEDURE: CT abdomen and pelvis without contrast. TECHNIQUE: Multiple contiguous axial images were obtained through the abdomen and pelvis without the use of intravenous contrast. Auto Exposure Controls were utilized during the CT exam to meet ALARA standards for radiation dose reduction. INDICATION: Abdominal pain. Constipation. COMPARISON: 04/10/2019. FINDINGS: The heart is unremarkable. The lung bases are clear. Cortical cyst is seen in the mid left kidney. No hydronephrosis or renal calculi. No perinephric fat stranding. The urinary bladder is decompressed. The liver, spleen, pancreas, and adrenal glands have a normal noncontrast CT appearance. The gallbladder is decompressed. There is no pathologically enlarged mesenteric or retroperitoneal adenopathy. Large hiatal hernia is seen with intrathoracic stomach. The bowel loops are nondilated. Scattered diverticula are seen in the descending and sigmoid colon without evidence of acute diverticulitis. There is no free fluid or free air. No acute osseous abnormalities. There is grade 1 anterolisthesis of L4 on L5. Chronic height loss is seen in the superior endplate of T12 secondary to a prominent Schmorl's node. There is calcified aortic and iliac atherosclerotic plaque without aneurysm. There is no free air, loculated collection, or adenopathy in the pelvis. IMPRESSION: 1. No evidence of bowel obstruction. No large burden of stool is seen in the colon. No free fluid or free air. 2. Large hiatal hernia with intrathoracic stomach. This has increased in size since the prior exam. This can predispose to gastric volvulus. Recommend correlation with patient history and symptoms and surgical consultation to further evaluate. 3. Scattered diverticula without evidence of acute diverticulitis. Dictated by: Dictated on workstation # [id number]
[2021-11-20] MEDS ORDERED: LACTATED RINGERS 1,000 ML IV SCH (17:15)
[2021-11-20 18:15] LABS: BILIRUBIN,URINE NEGATIVE (NEGATIVE); CLARITY,URINE CLEAR; COLOR,URINE YELLOW; GLUCOSE, URINE (UA) NEGATIVE (NEGATIVE); KETONES,URINE NEGATIVE (NEGATIVE); LEUKOCYTE ESTERASE ,URINE TRACE (NEGATIVE); NITRITE,URINE NEGATIVE (NEGATIVE); PROTEIN,URINE NEGATIVE (NEGATIVE)
[2021-11-20 18:40] LABS: BACTERIA,URINE NEGATIVE /HPF; WBC,URINE 0-2 /HPF
[2021-11-20 18:55] VITALS: BP 137/94
== END 2021-11-20 18:55 | disposition home or self-care (01) ==
LOC: EDUNIT# 15:41 → ER 15:44
DX: K44.9 Diaphragmatic hernia without obstruction or gangrene (principal); G47.30 Sleep apnea, unspecified; Z99.81 Dependence on supplemental oxygen; Z90.49 Acquired absence of other specified parts of digestive tract
CPT/HCPCS: 36415; 74176; 80053; 81000; 83690; 85025; 86141

== ENCOUNTER 2022-01-22 13:01 | Outpatient (RCR) | payer MEDICARE | END 2022-03-14 | disposition home or self-care (01) | LOC: CR3 13:01 | PROVIDERS: ATTEND Internal Medicine | DX: Z29.8 Encounter for other specified prophylactic measures (principal) ==

== ENCOUNTER → 2022-02-23 | Outpatient (CLI) | payer MEDICARE ==
--- NOTE | 2022-02-23 16:48 | Diagnostic Imaging Report ---
INDICATION: Routine screening. COMPARISON: 03/03/2021 and 12/21/2019. TECHNIQUE: 2D and 3D bilateral screening mammography was performed with CAD. FINDINGS: Both breasts are heterogeneously dense, limiting the sensitivity of mammography. A biopsy marker clip in the central right breast is again noted. A cluster of appearing microcalcifications in the upper and outer aspect of the right breast appears to be slowly increasing. Additional views of these calcifications are recommended. No mass is identified. The axillae are unremarkable. IMPRESSION: Slight increase in a cluster of calcifications in the upper outer right breast at mid depth. Additional views are recommended for further evaluation. ACR BI-RADS Category 0: Incomplete. (Needs additional imaging evaluation). Result letter will be mailed to the patient. Note: At least 10% of breast cancer is not imaged by mammography. Dictated by: Dictated on workstation # [id number]
== END ==
LOC: RAD 13:45
PROVIDERS: ATTEND Nurse Practitioner Family
DX: Z12.31 Encounter for screening mammogram for malignant neoplasm of breast (principal); R92.1 Mammographic calcification found on diagnostic imaging of breast
CPT/HCPCS: 77063; 77067

== ENCOUNTER → 2022-02-26 | Outpatient (CLI) | payer MEDICARE ==
--- NOTE | 2022-02-26 16:48 | Diagnostic Imaging Report ---
Indication: Right breast calcifications. The patient presents for additional views. Correlation is made with recent screening study from 02/23/2022 as well as studies dating back to 2018. Unilateral right 2-D and 3-D diagnostic mammography was performed. This included magnification CC and ML views as well as conventional 90 degree lateral views. There is an emerging cluster of microcalcifications in the upper outer right breast. These calcifications demonstrate some pleomorphism. No associated soft tissue mass is seen. This is a similar location as a prior biopsy from 2018 with a benign result. Despite this, a repeat serotactic biopsy would be recommended. IMPRESSION: BI-RADS Category 4 Emerging cluster of microcalcifications in the upper outer right breast mid depth with pleomorphism. Tissue sampling is recommended. This would be amenable to stereotactic biopsy approach. ACR BI-RADS Category 4: Suspicious abnormality. Result letter will be mailed to the patient. Note: At least 10% of breast cancer is not imaged by mammography. Dictated by: Dictated on workstation # [id number]
== END ==
LOC: RAD 13:45
PROVIDERS: ATTEND Internal Medicine
DX: R92.0 Mammographic microcalcification found on diagnostic imaging of breast (principal)
CPT/HCPCS: 77065; G0279

== ENCOUNTER → 2022-03-05 | Outpatient (CLI) | payer MEDICARE ==
[2022-03-05 13:57] LABS: ABSOLUTE RETIC # 62 10e9/uL (24-90); BASOPHILS # (AUTO) 0.1 10^3/uL (0.0-0.1); BASOPHILS % (AUTO) 1 % (0-10); EOSINOPHILS # (AUTO) 0.3 10^3/uL (0.0-0.3); EOSINOPHILS % (AUTO) 4 % (0-10); HEMATOCRIT 41 % (35-52); HEMOGLOBIN 12.4 g/dL (11.5-16.0); LYMPHOCYTES # (AUTO) 2.6 10^3/uL (1.0-4.0); LYMPHOCYTES % (AUTO) 35 % (12-44); MEAN CORPUSCULAR HEMOGLOBIN 26 pg (25-34); MEAN CORPUSCULAR HGB CONC 30 g/dL (32-36); MEAN CORPUSCULAR VOLUME 84 fL (80-99); MEAN PLATELET VOLUME 10.6 fL (9.0-12.2); MONOCYTES # (AUTO) 0.8 10^3/uL (0.0-1.0); MONOCYTES % (AUTO) 11 % (0-12); NEUTROPHILS # (AUTO) 3.6 10^3/uL (1.8-7.8); NEUTROPHILS % (AUTO) 49 % (42-75); PLATELET COUNT 234 10^3/uL (130-400); RETICULOCYTE % 1.27 % (0.50-2.40); WHITE BLOOD COUNT 7.4 10^3/uL (4.3-11.0)
[2022-03-05 14:22] LABS: ELLIPT/OVALOCYTES SLIGHT; EOSINOPHILS % (MANUAL) 3 %; HYPOCHROMASIA SLIGHT; LYMPHOCYTES % (MANUAL) 37 %; MONOCYTES % (MANUAL) 5 %; NEUTROPHILS % (MANUAL) 55 %
== END ==
LOC: LAB 13:33
PROVIDERS: ATTEND Internal Medicine
DX: D64.9 Anemia, unspecified (principal); D72.820 Lymphocytosis (symptomatic)
CPT/HCPCS: 36415; 85007; 85027; 85045; 85055

== ENCOUNTER → 2022-03-25 | Outpatient (CLI) | payer MEDICARE ==
[~2022-03-25] MED LIST changes: +LIDOCAINE 1% INJ 10 ML VIAL INJ ONE; +LIDOCAINE 1% INJ 10 ML VIAL ONE
[2022-03-25 14:09] VITALS: BP 149/68
--- NOTE | 2022-03-25 18:45 | Diagnostic Imaging Report ---
INDICATION: Right breast calcifications. Patient presents for stereotactic biopsy. COMPARISON: Correlation is made with mammogram from 06/26/2021. PROCEDURE: Patient was brought to the stereotactic suite placed in a chair in the sitting upright position. Right breast was positioned lateral medial. Imaging was performed. The calcifications in the outer upper aspect of the right breast were stereotactically and tomographically targeted. The skin of the lateral right breast was prepped and draped in the usual sterile fashion. Small amount of 1% lidocaine was utilized for local anesthesia. An 8 gauge needle was advanced from a lateral medial approach and placed per stereotactic coordinates. All images were viewed on a dedicated workstation. A total of 4 core samples were obtained utilizing the 8 gauge vacuum-assisted device. Specimen radiograph demonstrates numerous calcifications within sample labeled #2, #3 and #4. A marker clip was then deployed. Needle was removed and hemostasis was obtained. Postprocedure 2D CC and ML mammogram was obtained demonstrating a marker clip in the upper slightly outer right breast. Patient tolerated the procedure well and left Department in stable condition. IMPRESSION: Successful stereotactic biopsy of right breast calcifications utilizing the vacuum-assisted device. Pathology results are currently pending. Dictated by: Dictated on workstation # [id number]
== END ==
LOC: RAD 03-11 08:43
PROVIDERS: ATTEND Internal Medicine
CPT/HCPCS: 19081; A4648

== ENCOUNTER → 2022-04-19 | Outpatient (CLI) | payer MEDICARE ==
[~2022-04-19] MED LIST changes: -LIDOCAINE 1% INJ 10 ML VIAL INJ ONE; -LIDOCAINE 1% INJ 10 ML VIAL ONE
== END ==
LOC: CARD 13:30
PROVIDERS: ATTEND Nurse Practitioner Family
DX: I27.21 Secondary pulmonary arterial hypertension (principal)
CPT/HCPCS: 93306

== ENCOUNTER 2022-10-08 15:42 | Outpatient (RCR) | payer MEDICARE ==
[~2022-10-08 15:42] MED LIST changes: -LACT10SO33 PO; +LACT10SO74 PO; -POTA10CA43 PO; +POTA10CA44 PO
== END 2022-10-12 | disposition home or self-care (01) ==
LOC: CR3 15:42
PROVIDERS: ATTEND Internal Medicine
DX: Z29.8 Encounter for other specified prophylactic measures (principal)

== ENCOUNTER 2022-10-22 14:38 | Outpatient (RCR) | payer MEDICARE | END 2022-11-12 | disposition home or self-care (01) | LOC: CR3 14:38 | PROVIDERS: ATTEND Internal Medicine | DX: Z29.8 Encounter for other specified prophylactic measures (principal) ==

== ENCOUNTER 2023-01-21 09:10 | Outpatient (CLI) | payer MEDICARE ==
[~2023-01-21] VITALS: Ht 152.4 cm; Wt 92.5 kg
[~2023-01-21 09:10] MED LIST changes: -POTA10CA44 PO; +POTA10CA84 PO
== END 2023-01-21 13:02 | disposition home or self-care (01) ==
LOC: PREOP 09:10
PROVIDERS: ATTEND Internal Medicine
DX: Z01.818 Encounter for other preprocedural examination (principal)

== ENCOUNTER 2023-01-28 09:51 | Day surgery (SDC) | payer MEDICARE ==
--- NOTE | 2023-01-21 23:56 | HISTORY AND PHYSICAL ---
PANENDOSCOPY HISTORY AND PHYSICAL HISTORY OF PRESENT ILLNESS: The patient is an 87-year-old white female who was found to be anemic, iron deficiency, which was occult positive for blood in Dr. Hilliard's office. She has some occasional generalized abdominal discomfort, but has not been aware of any melena or bright red blood per rectum. She does report occasional dysphagia to solids. She did have EGD done a little over a year ago per Dr. Jackson and review of electronic medical record, she had moderate size hiatal hernia without evidence for erosive esophagitis. She had a fundal polyp removed via snare, but there was no report of mechanical obstruction or peptic ulcer disease. 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 FAMILY HISTORY: Pertinent for brother who of colon cancer in his late 50s. The patient reports that she had a colonoscopy done per Dr. Rodriguez. She reports it was quite a long time ago and there is no record of colonoscopy dating back to 2011, her first entry in her electronic medical record. REVIEW OF SYSTEMS: CONSTITUTIONAL: Denies night sweats, chills, fever or change in weight. GASTROINTESTINAL: Denies melena or bright red blood per rectum. Does report dysphagia as noted above, has had no change in bowel habits. PULMONARY: Denies cough or wheezing. Reports stable dyspnea on exertion, is O2 dependent. CARDIOVASCULAR: Denies chest pain, orthopnea, PND, or syncope, intermittently takes furosemide for pedal edema, which has pretty much been at her baseline. PHYSICAL EXAMINATION: GENERAL: Reveals a pleasant, overweight white female, alert and oriented and a good historian. VITAL SIGNS: Weight 204 pounds, 5 feet tall, blood pressure 118/72. HEENT: Unremarkable. Sclerae nonicteric. CHEST: Clear. CARDIOVASCULAR: Reveals a regular rate and rhythm without murmur, S3, or S4. ABDOMEN: Soft, supple without mass, organomegaly, or tenderness. EXTREMITIES: No cyanosis, clubbing or edema. Blood tests from Dr. Hilliard's office from 01/03 were reviewed. Her hemoglobin was 11.5, which was down 7/10 of a gram from October and her MCV was lower at 80.9, platelet count 263,000. ASSESSMENT AND PLAN: The patient is being set up for panendoscopy due to dysphagia and a family history for colon cancer with likely recent onset iron deficiency anemia and occult positive blood in the stool. Prep instructions were given and questions were answered. As the patient is an ASA class III status and O2 dependent, she will not be a candidate for outpatient surgery center and will consequently be done at [facility]. I thank you for referral of this pleasant lady. Job ID: [id number] DocumentID: [id number] Dictated Date: 01/20/2023 15:29:34 Manager Nursing Date: 01/20/2023 16:13:00 Dictated By: LETY SCHWARZ MD MTDD
[~2023-01-28] VITALS: Ht 152.4 cm; Wt 92.5 kg
[2023-01-28] MEDS ORDERED: LACTATED RINGERS 1,000 ML 1,000 ML IV STA (10:07)
[2023-01-28] MEDS ORDERED: HURRICAINE EXT TUBE (BENZOCAINE) XX PRN (10:15)
[2023-01-28 10:22] VITALS: BP 134/61
--- NOTE | 2023-01-28 10:46 | Pre-Op Note & Conscious Sedat ---
Pre-Operative Progress Note Date H&P Reviewed: Jan 28, 2023 Time H&P Reviewed: 10:45 History & Physical: H&P Reviewed, Patient Examed, No changes noted Pre-Op Diagnosis: Iron deficiency anemia and abdominal pain Moderate Sedation PreProcedure ASA Score 3 Airway Lungs Heart ASA score ASA 1: a normal healthy patient ASA 2: a patient with a mild systemic disease (mid diabetes, controlled hypertension, obesity ASA 3: a patient with a severe systemic disease that limits activity (angina, COPD, prior Myocardial infarction) ASA 4: a patient with an incapacitating disease that is a constant threat to life (CHF, renal failure) ASA 5: a moribund patient not expected to survive 24 hrs. (ruptured aneurysm) ASA 6: a declared brain- patient whose organs are being harvested. For emergent operations, add the letter E after the classification Mallampati Classification Grade 2 Sedation Plan Analgesia, Amnesia, Plan communicated to team members, Discussed options with patient/fam, Discussed risks with patient/fam The patient is an appropriate candidate to undergo the planned procedure, sedation, and anesthesia. The patient immediately re-assessed prior to indication. LETY SCHWARZ MD Jan 28, 2023 10:46
[2023-01-28] MEDS ORDERED: PHENYLEPHRINE 100 MCG/ML 10 ML (ANESTHESIA) SYR ONE (11:36)
[2023-01-28] MEDS ORDERED: proPOfol INJECTION 200 MG/20 ML VIAL IV ONE (11:53)
[2023-01-28 12:15] VITALS: BP 135/57
[2023-01-28 12:20] VITALS: BP 126/58
[2023-01-28 13:00] VITALS: BP 126/58
--- NOTE | 2023-01-28 13:03 | Progress Note-Post Operative ---
Post-Procedure Note Physician (s)/Rink Rat (s) Physician LETY SCHWARZ MD Pre-Procedure Diagnosis Pre-Procedure Diagnosis: Iron deficiency anemia and abdominal pain Post-Procedure Diagnosis Post-operative diagnosis: The endoscope was inserted into the oral cavity and under direct visualization the esophagus is intubated. The endoscope was passed down the esophagus through the stomach into the second portion of the duodenum. A careful inspection was made as the endoscope was withdrawn. Findings: The posterior pharynx epiglottis arytenoid aperture and true and false vocal folds were unremarkable to gross inspection. Proximal mid and distal esophagus were unremarkable except for the fact that the GE junction is approximately placed at 30 cm secondary to a large approximate 5 cm hiatal hernia with the proximately quarter of the stomach being present above the level of the diaphragm. There is no evidence for erosive esophagitis no evidence for marginal ulceration otherwise the cardia fundus antrum pylorus pyloric channel duodenal bulb and second portion of the duodenum were unremarkable with normal villous appearing architecture. Assessment Large hiatal hernia is present with approximately quarter the stomach being present above the level of the diaphragm. No other abnormalities are noted no potential bleeding sites were identified with normal villous appearing architecture in the duodenal bulb and second portion of the duodenum. We then proceeded with colonoscopy. Prior to undergoing colonoscopy digital rectal evaluation was performed. Anal suture tone was normal and the perianal reflexes intact. No abnormalities were noted on digital inspection anal canal or distal rectal vault. The colonoscope was then inserted into the rectum and under direct visualization advanced to the cecum. The cecum was identified by the indication of the ileocecal valve and cecal strap. Photographic documentation was obtained. Quality prep was good. Careful inspection was made as the colonoscope withdrawn. Findings: There are no evidence for internal/external hemorrhoids. Present the distal rectum was a sessile 8 mm adenomatous appearing polyp without ulceration was biopsied cauterized and submitted for histopathology with a several cc blood loss. The remainder the rectum was unremarkable. Few small sigmoid diverticulum were present without evidence for diverticulitis the sigmoid colon was otherwise unremarkable. The descending colon splenic flexure unremarkable. Present in the proximal transverse colon as well as the proximal ascending colon were 5 mm sessile polyps that were biopsied and ablated with no subsequent blood loss remainder the ascending colon and cecum was unremarkable. A/P 1. 3 polyps were removed the most significant from the distal rectum all having adenomatous features but without gross evidence to suggest malignancy. As long as there is no evidence for dysplasia or microscopic malignancy considering this patient's age I would not recommend future surveillance colonoscopy. These polyps are questionable site in regards to patient's reported iron deficiency anemia. No vascular malformations were noted today. I thank you for the furl this pleasant lady sincerely Lety Schwarz MD. CC: Dr. Brandon SCHWARZ,LETY Avila MD Jan 28, 2023 13:03
--- NOTE | 2023-01-28 14:03 | Anesthesia-General Post-Op ---
MAC Patient Condition Mental Status/LOC: Same as Preop Cardiovascular: Satisfactory Nausea/Vomiting: Absent Respiratory: Satisfactory Pain: Controlled Complications: Absent Post Op Complications Complications None Follow Up Care/Instructions Patient Instructions None needed. Anesthesiology Discharge Order Discharge Order Patient was doing well after the procedure with no complaints, stable vital signs, no apparent adverse anesthesia problems. No complications reported per nursing. ANA PAULA AUSTIN DO Jan 28, 2023 14:03
== END 2023-01-28 13:10 | disposition home or self-care (01) ==
LOC: ENDO 09:51
PROVIDERS: ATTEND Internal Medicine
DX: D12.2 Benign neoplasm of ascending colon (principal); D12.3 Benign neoplasm of transverse colon; D12.8 Benign neoplasm of rectum; D50.9 Iron deficiency anemia, unspecified; K44.9 Diaphragmatic hernia without obstruction or gangrene; E66.9 Obesity, unspecified; R10.9 Unspecified abdominal pain; R19.5 Other fecal abnormalities; G47.33 Obstructive sleep apnea (adult) (pediatric); Z99.81 Dependence on supplemental oxygen; Z80.0 Family history of malignant neoplasm of digestive organs

== ENCOUNTER 2023-03-03 12:46 | Emergency (ER) | payer MEDICARE ==
[~2023-03-03] VITALS: Ht 152 cm; Wt 95.0 kg
[2023-03-03] MEDS ORDERED: POTASSIUM CL 10MEQ/50ML IVPB 50 ML IV STA (13:27)
[2023-03-03] MEDS ORDERED: POTASSIUM CHLORIDE 20 MEQ TABLET PO STA (13:27)
[2023-03-03] MEDS ORDERED: MAGNESIUM 1 GM/100 ML IVPB 100 ML IV ONE (13:30)
[2023-03-03 13:31] LABS: BASOPHILS # (AUTO) 0.1 10^3/uL (0.0-0.1); BASOPHILS % (AUTO) 0 % (0-10); EOSINOPHILS # (AUTO) 0.1 10^3/uL (0.0-0.3); EOSINOPHILS % (AUTO) 1 % (0-10); HEMATOCRIT 36 % (35-52); HEMOGLOBIN 11.6 g/dL (11.5-16.0); LYMPHOCYTES % (AUTO) 24 % (12-44); MEAN CORPUSCULAR HEMOGLOBIN 25 pg (25-34); MEAN CORPUSCULAR HGB CONC 32 g/dL (32-36); MEAN CORPUSCULAR VOLUME 78 fL (80-99); MONOCYTES # (AUTO) 1.3 10^3/uL (0.0-1.0); MONOCYTES % (AUTO) 11 % (0-12); NEUTROPHILS # (AUTO) 7.9 10^3/uL (1.8-7.8); NEUTROPHILS % (AUTO) 64 % (42-75); PLATELET COUNT 267 10^3/uL (130-400); WHITE BLOOD COUNT 12.4 10^3/uL (4.3-11.0)
--- NOTE | 2023-03-03 13:33 | ED General ---
General Chief Complaint: - Reproductive Stated Complaint: LOW POTASSIUM | VOMITING Nursing Triage Note: PT STATES VOMITING UPPER ABD PAIN, WAS GIVEN MEDS AND THAT WAS BETTER, LABS DRAWN SHOWED LOW K AND HIGH WBC. NOT FEELING RIGHT, HAS NOT TAKEN LASIX FOR A FEW DAYS Source of Information: Patient Exam Limitations: No Limitations History of Present Illness Date Seen by Provider: Mar 03, 2023 Time Seen by Provider: 12:47 Initial Comments 87-year-old female that is on Lasix coming in as a referral from her primary care physician due to low potassium. She started having nonbloody nonbilious vomiting last week. The last episode of vomiting was a couple days ago. She has been on Zofran now which has been helping. She did have an episode of diarrhea today that was nonbloody. Denies any abdominal pain, chest pain, shortness of breath, or any other concerns. She has not taken her Lasix in a couple of days now. She is unsure what her potassium actually was. Otherwise denying any other acute complaints Allergies and Home Medications Allergies Coded Allergies: Iodinated Contrast Media (Verified Allergy, Unknown, 10/24/20) Sulfa (Sulfonamide Antibiotics) (Verified Allergy, Unknown, 08/01/18) bacitracin (Unverified Allergy, Unknown, 08/01/18) diphenhydramine (Unverified Allergy, Unknown, 08/01/18) gramicidin D (Unverified Allergy, Unknown, 08/01/18) neomycin (Unverified Allergy, Unknown, 08/01/18) polymyxin B (Unverified Allergy, Unknown, 08/01/18) quinine (Unverified Allergy, Unknown, 08/01/18) Patient Home Medication List Home Medication List Reviewed: Yes Aspirin (Aspirin EC) 81 Mg Tablet.dr, 81 MG PO DAILY, (Reported) Entered as Reported by: SETH CARBONE on 10/18/17 0832 Atorvastatin Calcium (Atorvastatin Calcium) 40 Mg Tablet, 40 MG PO HS, (Reported) Entered as Reported by: SETH CARBONE on 10/18/17 0828 Cholecalciferol (Vitamin D3) (Vitamin D3) 125 Mcg Tablet, 125 MCG PO DAILY, (Reported) Entered as Reported by: RAYSHAWN PYLE on 10/24/20 1130 Divalproex Sodium (Divalproex Sodium ER) 250 Mg Tab.er.24h, 250 MG PO BID, (Reported) Entered as Reported by: BERKLEY WELLS on 05/18/21 1252 Furosemide (Furosemide) 20 Mg Tablet, 20 MG PO DAILY, (Reported) Entered as Reported by: BERKLEY WELLS on 05/18/21 1254 Latanoprost/Pf (Latanoprost 0.005% Eye Drop) 7.5 Ml Drops, 7.5 ML OP DAILY, (Reported) Entered as Reported by: BERKLEY WELLS on 05/18/21 1256 Levothyroxine Sodium (Levothyroxine Sodium) 100 Mcg Tablet, 100 MCG PO DAILY, (Reported) Entered as Reported by: SETH CARBONE on 10/18/17827 Melatonin (Melatonin) 3 Mg Tablet, 3 MG PO HS, (Reported) Entered as Reported by: SETH CARBONE on 10/18/17827 Olanzapine (Olanzapine) 15 Mg Tablet, 15 MG PO HS, (Reported) Entered as Reported by: BERKLEY WELLS on 05/18/21 130 Pantoprazole Sodium (Protonix) 40 Mg Granpkt.dr, 40 MG PO DAILY, (Reported) Entered as Reported by: BERKLEY WELLS on 05/18/21 1302 Potassium Chloride (Potassium Chloride) 10 Meq Capsule.er, 10 MEQ PO DAILY, (Reported) Entered as Reported by: BERKLEY WELLS on 05/18/21 130 Venlafaxine HCl (Venlafaxine HCl ER) 75 Mg Tab.er.24, 75 MG PO DAILY, (Reported) Entered as Reported by: SETH CARBONE on 10/18/17827 Review of Systems Review of Systems Constitutional: No fever EENTM: no symptoms reported Respiratory: no symptoms reported Cardiovascular: no symptoms reported Gastrointestinal: see HPI Genitourinary: no symptoms reported Musculoskeletal: no symptoms reported Past Nerliyn-Srbrno-Okoekm Hx Patient Social History Tobacco Use?: No Substance use?: No Alcohol Use?: No Immunizations Up To Date First/Initial COVID19 Vaccinat: yes Second COVID19 Vaccination Nathan: yes Third COVID19 Vaccination Date: yes Seasonal Allergies Seasonal Allergies: No Past Medical History Surgery/Hospitalization HX: 2 C SECTIONS, BI LAT KNEE REPLACEMENT, APPE, GERD Surgeries: Yes (INÉS TKR,2 C-SECTIONS) Appendectomy, Thyroidectomy Respiratory: Yes (STATES CANT WEAR MASK, O2 2L-HAS LOW O2 SATS, chronic cough) Sleep Apnea, COPD Cardiac: Yes (bradycardia) High Cholesterol Neurological: No Reproductive Disorders: No 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 Sexually Transmitted Disease: No HIV/AIDS: No Genitourinary: Yes Gastrointestinal: Yes (n&V) Gastroesophageal Reflux, Chronic Constipation, Irritable Bowel Musculoskeletal: Yes Arthritis Endocrine: Yes (RIGHT SIDE OF THYROID REMOVED) Hypothyroidsim HEENT: Yes (GLASSES, TOP DENTURES) Loss of Vision: Bilateral Hearing Impairment: Denies Cancer: No Psychosocial: Yes (HX DEPRESSION, BI POLAR) Anxiety, Bipolar, Depression Integumentary: No Blood Disorders: No Adverse Reaction/Blood Tranf: No (HAS HAD BLOOD WITH NO REACTION) Family Medical History No Pertinent Family Hx Physical Exam Vital Signs Vital Signs - First Documented 03/03/23 12:57 Temp 36.3 Pulse 88 Resp 20 B/P (MAP) 128/66 (86) Pulse Ox 97 O2 Delivery Nasal Cannula O2 Flow Rate 2.00 Capillary Refill : Less Than 3 Seconds Height, Weight, BMI Height: 5'0.00" Weight: 243lbs. 4.0oz. 103.709514bs; 41.00 BMI Method:Stated General Appearance: No Apparent Distress, WD/WN Eyes: Bilateral Eye Normal Inspection HEENT: PERRL/EOMI, Normal ENT Inspection, Pharynx Normal Neck: Full Range of Motion, Normal Inspection, Non Tender, Supple Respiratory: Chest Non Tender, Lungs Clear, Normal Breath Sounds, No Accessory Muscle Use, No Respiratory Distress Cardiovascular: Normal Peripheral Pulses Gastrointestinal: Normal Bowel Sounds, Non Tender, Soft; No Distended, No Guard ing Neurologic/Psychiatric: Alert, Oriented x3, No Motor/Sensory Deficits, Normal Mood/Affect Skin: Normal Color, Warm/Dry Progress/Results/Core Measures Suspected Sepsis SIRS Temperature: Pulse: 88 Respiratory Rate: 20 Laboratory Tests 03/03/23 13:20: White Blood Count 12.4H Blood Pressure 128 /66 Mean: 86 Laboratory Tests 03/03/23 13:20: Creatinine 1.11, Platelet Count 267, Total Bilirubin 0.9 Results/Orders Lab Results Laboratory Tests Test 03/03/23 13:20 03/03/23 13:52 03/03/23 14:25 Range/Units White Blood Count 12.4 H 4.3-11.0 10^3/uL Red Blood Count 4.64 3.80-5.11 10^6/uL Hemoglobin 11.6 11.5-16.0 g/dL Hematocrit 36 35-52 % Mean Corpuscular Volume 78 L 80-99 fL Mean Corpuscular Hemoglobin 25 25-34 pg Mean Corpuscular Hemoglobin Concent 32 32-36 g/dL Red Cell Distribution Width 16.5 H 10.0-14.5 % Platelet Count 267 130-400 10^3/uL Mean Platelet Volume 11.0 9.0-12.2 fL Immature Granulocyte % (Auto) 0 % Neutrophils (%) (Auto) 64 42-75 % Lymphocytes (%) (Auto) 24 12-44 % Monocytes (%) (Auto) 11 0-12 % Eosinophils (%) (Auto) 1 0-10 % Basophils (%) (Auto) 0 0-10 % Neutrophils # (Auto) 7.9 H 1.8-7.8 10^3/uL Lymphocytes # (Auto) 3.0 1.0-4.0 10^3/uL Monocytes # (Auto) 1.3 H 0.0-1.0 10^3/uL Eosinophils # (Auto) 0.1 0.0-0.3 10^3/uL Basophils # (Auto) 0.1 0.0-0.1 10^3/uL Immature Granulocyte # (Auto) 0.0 0.0-0.1 10^3/uL Sodium Level 136 135-145 MMOL/L Potassium Level 2.5 *L 3.6-5.0 MMOL/L Chloride Level 88 L 98-107 MMOL/L Carbon Dioxide Level 34 H 21-32 MMOL/L Anion Gap 14 5-14 MMOL/L Blood Urea Nitrogen 11 7-18 MG/DL Creatinine 1.11 0.60-1.30 MG/DL Estimat Glomerular Filtration Rate 49 BUN/Creatinine Ratio 10 Glucose Level 100 70-105 MG/DL Calcium Level 8.9 8.5-10.1 MG/DL Corrected Calcium 9.0 8.5-10.1 MG/DL Magnesium Level 2.2 1.6-2.4 MG/DL Total Bilirubin 0.9 0.1-1.0 MG/DL Aspartate Amino Transf (AST/SGOT) 22 5-34 U/L Alanine Aminotransferase (ALT/SGPT) 11 0-55 U/L Alkaline Phosphatase 93 40-136 U/L Total Protein 7.2 6.4-8.2 GM/DL Albumin 3.9 3.2-4.5 GM/DL Urine Color YELLOW Urine Clarity CLOUDY Urine pH 6.0 5-9 Urine Specific [place] 1.015 L 1.016-1.022 Urine Protein 3+ H NEGATIVE Urine Glucose (UA) NEGATIVE NEGATIVE Urine Ketones 1+ H NEGATIVE Urine Nitrite NEGATIVE NEGATIVE Urine Bilirubin 2+ H NEGATIVE Urine Urobilinogen 1.0 < = 1.0 MG/DL Urine Leukocyte Esterase 3+ H NEGATIVE Urine RBC (Auto) 3+ H NEGATIVE Urine RBC TNTC H /HPF Urine WBC TNTC H /HPF Urine Squamous Epithelial Cells 5-10 /HPF Urine Crystals NONE /LPF Urine Bacteria FEW H /HPF Urine Casts PRESENT /LPF Urine Hyaline Casts 2-5 H /LPF Urine Mucus NEGATIVE /LPF Urine Culture Indicated YES Troponin I < 0.028 <0.028 NG/ML My Orders Orders - MAURICIO VARGHESE MD Ed Iv/Invasive Line Start (03/03/23 13:24) Cbc And Automated Diff (03/03/23 13:24) Comprehensive Metabolic Panel (03/03/23 13:24) Magnesium (03/03/23 13:24) Potassium Cl 10meq/50ml Ivpb (Kcl 10 Meq (03/03/23 13:27) Magnesium 1 Gm/100 Ml Ivpb (Magnesium 1 (03/03/23 13:30) Potassium Chloride (Tablet) (Potassium C (03/03/23 13:27) Chest 1 View, Ap/Pa Only (03/03/23 14:23) Troponin I Robertson (03/03/23 14:23) Ekg Tracing (03/03/23 14:23) Monitor-Rhythm Ecg Trace Only (03/03/23 14:23) Ondansetron Injection (Ondansetron Inj (03/03/23 14:30) Ondansetron Injection (Ondansetron Inj (03/03/23 14:29) Ua Culture If Indicated (03/03/23 15:56) Urine Culture (03/03/23 13:52) Medications Given in ED Current Medications Medications Dose Ordered Sig/Tiburcio Route Start Time Stop Time Status Last Admin Dose Admin Magnesium Sulfate/ Dextrose 100 ml @ 100 mls/hr ONCE ONCE IV 03/03/23 13:30 03/03/23 14:29 DC 03/03/23 13:49 100 MLS/HR Ondansetron HCl 4 mg ONCE ONCE IVP 03/03/23 14:30 03/03/23 14:31 DC 03/03/23 14:31 4 MG Vital Signs/I&O 03/03/23 03/03/23 12:57 13:07 Temp 36.3 Pulse 88 Resp 20 B/P (MAP) 128/66 (86) Pulse Ox 97 O2 Delivery Nasal Cannula Nasal Cannula O2 Flow Rate 2.00 2.00 Capillary Refill : Less Than 3 Seconds Blood Pressure Mean: 86 Progress Note : Progress Note 87-year-old female with above history being referred for low potassium. ABCs were intact and vitals were stable on presentation. Physical exam reassuring with no acute abnormalities. Specifically, she has a soft and nontender abdomen. She seems to be over the GI illness that she had earlier in the week. Now she is tolerating p.o. I contacted [facility], they state her potassium was 2.5. I personally placed an IV with ultrasound guidance. We will repeat her labs here and give her IV and p.o. potassium. She has a prescription for potassium at home, I will have her double up on this for the next 2 weeks. G here with normal QTc and no significant signs of hypokalemia. Repeat potassium here is 2.5 as well, magnesium normal, normal creatinine, slightly elevated white blood cell count which is likely reactive secondary to the vomiting. Troponin is negative. The patient later on was complaining of dysuria. Urinalysis added on was not concerning for infection. Prescription sent. History ordered and interpreted by me show no obvious pneumonia or pneumothorax I believe the patient is otherwise stable for discharge with outpatient follow-up. She was sent home with strict return precautions ECG Initial ECG Impression Date: Mar 03, 2023 Initial ECG Impression Time: 14:29 Initial ECG Rate: 81 Initial ECG Rhythm: Normal Sinus Comment Narrow QRS, borderline right axis deviation, no STEMI Departure Impression Primary Impression: Hypokalemia Additional Impressions: Vomiting in adult Cystitis Disposition: HOME, SELF-CARE Condition: Stable Departure-Patient Inst. Decision time for Depature: 15:00 Referrals: ARMANI VALERO MD (PCP/Family) Primary Care Physician Patient Instructions: Hypokalemia Add. Discharge Instructions: Continue to take your nausea medicine as needed. Double up on your potassium dose for the next 2 weeks and follow back up with your regular doctor to get repeat labs drawn to make sure it has improved. Also eat high potassium foods. Scripts Cefdinir (Cefdinir) 300 Mg Capsule 300 MG PO BID for 7 Days, #14 CAP 0 Refills Prov: MAURICIO VARGHESE MD 03/03/23 MAURICIO VARGHESE MD Mar 03, 2023 13:33
[2023-03-03 13:38] LABS: ALBUMIN 3.9 GM/DL (3.2-4.5)
[2023-03-03 13:40] LABS: CALCIUM 8.9 MG/DL (8.5-10.1)
[2023-03-03 13:41] LABS: TOTAL PROTEIN 7.2 GM/DL (6.4-8.2)
[2023-03-03 13:43] LABS: BILIRUBIN,TOTAL 0.9 MG/DL (0.1-1.0)
[2023-03-03 13:45] LABS: CREATININE SERUM 1.11 MG/DL (0.60-1.30)
[2023-03-03 13:48] LABS: MAGNESIUM 2.2 MG/DL (1.6-2.4)
[2023-03-03 13:56] LABS: POTASSIUM 2.5 MMOL/L (3.6-5.0)
[2023-03-03] MEDS ORDERED: ONDANSETRON INJECTION 4 MG/2 ML (SDV) ONE (14:29)
[2023-03-03] MEDS ORDERED: ONDANSETRON INJECTION 4 MG/2 ML (SDV) IVP ONE (14:30)
--- NOTE | 2023-03-03 15:43 | Diagnostic Imaging Report ---
INDICATION: Chest pain. TECHNIQUE: AP view of chest is obtained with comparison made to study of 10/05/2016. FINDINGS: Heart size and pulmonary vascularity are within normal limits. There is left diaphragmatic defect with hernia which has increased when compared to previous study. There is no pneumothorax. IMPRESSION: Mild left basilar atelectasis and/or pneumonitis. This may in part be related to compressive atelectasis secondary to diaphragmatic hernia. Dictated by: Dictated on workstation # [id number]
[2023-03-03 15:57] VITALS: BP 135/78
[2023-03-03 16:22] LABS: CLARITY,URINE CLOUDY; COLOR,URINE YELLOW; GLUCOSE, URINE (UA) NEGATIVE (NEGATIVE); KETONES,URINE 1+ (NEGATIVE); PROTEIN,URINE 3+ (NEGATIVE)
[2023-03-03 16:23] LABS: BACTERIA,URINE FEW /HPF; BILIRUBIN,URINE 2+ (NEGATIVE); LEUKOCYTE ESTERASE ,URINE 3+ (NEGATIVE); NITRITE,URINE NEGATIVE (NEGATIVE); RBC,URINE TNTC /HPF; WBC,URINE TNTC /HPF
[2023-03-03] MEDS ORDERED: CEFD300C3 PO (17:35)
== END 2023-03-03 15:57 | disposition home or self-care (01) ==
LOC: EDUNIT# 12:46 → ER 12:48
DX: E87.6 Hypokalemia (principal); N30.90 Cystitis, unspecified without hematuria; R11.10 Vomiting, unspecified; Z88.2 Allergy status to sulfonamides
CPT/HCPCS: 36415; 71045; 80053; 81000; 83735; 84484; 85025; 87077; 87088; 87186; 93005

== ENCOUNTER → 2023-03-17 | Outpatient (CLI) | payer MEDICARE ==
[~2023-03-17] MED LIST changes: +CEFD300C3 PO
--- NOTE | 2023-03-17 15:14 | Diagnostic Imaging Report ---
INDICATION: COPD, SOB COMPARISON: CT dated 11/20/2021 FINDINGS: Frontal and lateral views of the chest demonstrate normal heart size and pulmonary vascularity. The lungs are clear. There are no signs of infiltrate, pleural effusions or pneumothoraces. The visualized osseous structures show no acute abnormalities. Large hiatal hernia is noted. IMPRESSION: 1. No acute process. No signs of infiltrates, effusions or pneumothoraces. Dictated by: Dictated on workstation # [id number]
== END ==
LOC: RAD 14:08
PROVIDERS: ATTEND Internal Medicine Critical Care Medicine
DX: J44.9 Chronic obstructive pulmonary disease, unspecified (principal)
CPT/HCPCS: 71046

== ENCOUNTER 2023-04-13 13:22 | Outpatient (RCR) | payer MEDICARE | END 2023-04-14 | disposition home or self-care (01) | LOC: CR3 13:22 | PROVIDERS: ATTEND Internal Medicine | DX: Z29.89 Encounter for other specified prophylactic measures (principal) ==